=== PATIENT | female | born 1970 | race Caucasian/White ===

== ENCOUNTER 2019-11-14 11:09 | Emergency (ER) | payer MEDICARE, MEDICAID, SELFPAY ==
[2019-11-14 11:44] VITALS: BP 156/95; PULSE 72; RESP 16; TEMP 36.8; O2SAT 95; BMI 57.7
--- NOTE | 2019-11-14 11:54 | W.ED.EXTPRO ---
HPI - Extremity Problem General: Chief complaint: Extremity Problem,Nontraumatic Stated complaint: Right foot itching, patient comes in today for right foot itching starting this morning. Patient has a history of diabetes. Patient thought she had a rash there and states that she is allergic to a lot of things so she was concerned about that. Patient had tried some hydrocortisone which has resolved the rash but she continues to have itching in the foot. Patient appears well. Patient appears in no pain. Time Seen by Provider: 11/14/19 11:54 History of Present Illness: Associated symptoms: Reports rash Review of Systems General: Reports: 10 or more systems reviewed and unremarkable except in HPI and below Skin/Breast: Reports: rash and itching PFSH ED PFSH: Statuses (acute, chronic, etc) shown below reflect problem list status as previously entered and may not be historically accurate Social History Smoking and tobacco status: former smoker Physical Exam Const: COMMON NORMALS: no apparent distress and oriented x3 GENERAL APPEARANCE: cooperative HENMT: COMMON NORMALS: normocephalic, external ears normal, EAC's normal, TM's normal bilaterally and external nose normal HEAD & SCALP: normal to inspection and normocephalic FACE & SINUS: normal facial exam NOSE: external nose normal GENERAL EAR: hearing grossly impaired EXTERNAL EAR: Yes external ears normal EXTERNAL AUDITORY CANAL: EAC's normal TYMPANIC MEMBRANE: TM's normal bilaterally MOUTH: oral and palatal mucosa normal THROAT: posterior oropharynx normal Eye: COMMON NORMALS: PERRL and EOMs intact bilaterally PUPIL: Yes PERRL Neck/C-Spine: COMMON NORMALS: full ROM and no lymphadenopathy Lymph: LYMPHATIC: no lymphedema noted Chest: COMMONS NORMALS: inspection of chest normal and palpation of chest normal Resp: COMMON NORMALS: normal respiratory effort and clear to auscultation bilaterally AUSCULTATION: clear to auscultation bilaterally Cardio: COMMON NORMALS: regular rate and regular rhythm RATE: regular rate RHYTHM: regular rhythm GI: COMMON NORMALS: normal to inspection, nondistended, normoactive bowel sounds and non-tender : COMMON NORMALS: Yes no CVA tenderness BLADDER/KIDNEY EXAM: Yes no CVA tenderness Back/Pelvis: COMMON NORMALS: no CVA tenderness and thoracic and lumbar spine normal to inspection Extremity: COMMON NORMALS: normal to inspection GENERAL: No edema Neuro: COMMON NORMALS: oriented x3, moves all extremities and no focal motor deficits Psych: COMMON NORMALS: mental status grossly normal and cooperative Skin: RASHES: rashes noted (light redness to dorsal right foot) Course Vital Signs: Vital signs: Vital Signs Temperature 98.3 F 11/14/19 11:44 Pulse Rate 72 11/14/19 11:44 Respiratory Rate 16 11/14/19 11:44 Blood Pressure 156/95 11/14/19 11:44 Pulse Oximetry 95 11/14/19 11:44 MDM - Extremity (Nontraumatic) MDM Narrative: Medical decision making narrative: Medical decision. Patient comes in today with itchiness to the right dorsal foot. On exam there is an area of redness that looks like maybe mild abrasions due to scratching. No signs of significant rash or peeling of the skin. Differential diagnosis includes tinea pedis, contact dermatitis, diabetic neuropathy. Reviewed exam with patient recommended antifungal cream and medication for itching. Patient reports understanding agreed to plan. 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 remote computer terminal operator insulin use status Diabetes mellitus complication status: without complication Qualified Code(s): E11.9 - Type 2 diabetes mellitus without complications Condition: Stable Prescriptions: New triamcinolone acetonide 0.025 % cream 1 applic TOPICAL BID Qty: 80 RF: 0 Athlete's Foot (clotrimazole) 1 % cream 1 applic TOPICAL BID 28 Days Qty: 15 RF: 0 hydroxyzine HCl 25 mg tablet 25 mg PO Q8H PRN (Reason: itching) Qty: 20 RF: 0 Discharge Orders: Discharge Order (Routine); Ordered 11/14/19 Ordered By: Ash Burton Referrals: Che Day DO [Primary Care Provider] - Discharge Diet: Usual diet Discharge Activity: Resume usual activity Activity Restrictions/Additional Instructions: Drink plenty of water with oral medications Use creams to rash and itching as recommended Follow-up with primary care in one week for recheck Return to ER for fever or increased redness and swelling. Coding Level of Care Code ED Reproductive Endocrinologist for Robyn Ruiz Exam Problem Focused
[2019-11-14 12:22] VITALS: BP 138/85; PULSE 70; RESP 18; O2SAT 95
== END 2019-11-14 12:25 | disposition home or self-care (01) ==
PROVIDERS: Emergency Provider Nurse Practitioner Family; Family Provider Family Medicine; PCP Family Medicine
DX: L29.8 Other pruritus (principal); E11.9 Type 2 diabetes mellitus without complications; Z87.891 Personal history of nicotine dependence
CPT/HCPCS: 99281

== ENCOUNTER → 2020-01-04 13:38 | Outpatient (BNVA) | payer MEDICARE, MEDICAID, SELFPAY | PROVIDERS: Family Provider Family Medicine; PCP Family Medicine; Visit Provider Family Medicine | DX: E11.9 Type 2 diabetes mellitus without complications (principal); E78.5 Hyperlipidemia, unspecified; I10 Essential (primary) hypertension; H91.92 Unspecified hearing loss, left ear | CPT/HCPCS: 80053; 80061; 82044; 83036; 85025 ==

== ENCOUNTER → 2020-01-14 09:40 | Outpatient (BNVA) | payer MEDICARE, MEDICAID, SELFPAY | PROVIDERS: Family Provider Family Medicine; PCP Family Medicine; Visit Provider Otolaryngology | DX: H91.92 Unspecified hearing loss, left ear (principal); H65.02 Acute serous otitis media, left ear | CPT/HCPCS: 96372; 99204; 99214; J3301 ==

== ENCOUNTER 2020-01-20 21:39 | Emergency (ER) | payer MEDICARE, MEDICAID, SELFPAY ==
[2020-01-20 22:17] VITALS: BP 141/86; PULSE 79; RESP 16; TEMP 36.9; O2SAT 97; BMI 57.1
[2020-01-20 22:54] LABS: Basophils % 0.3 %; Eosinophils # 0.1 10^3/uL (0.0-0.8); Eosinophils % 0.7 %; Hematocrit 43.1 % (37.0-47.0); Hemoglobin 14.2 g/dL (11.5-15.3); Lymphocytes # 1.7 10^3/uL (0.8-4.8); Lymphocytes % 17.6 %; Mean Corpuscular HGB Conc 32.9 g/dL (30.0-36.0); Mean Corpuscular Hemoglobin 28.5 pg (28.0-34.0); Mean Corpuscular Volume 86.4 fL (81-99); Mean Platelet Volume 9.5 fL (7.4-10.4); Monocytes # 0.6 10^3/uL (0.2-0.9); Monocytes % 6.2 %; Neutrophils # 7.4 10^3/uL (1.8-7.7); Nucleated Red Blood Cells % 0 %; Platelet Count 298 10^3/cmm (130-400); Red Blood Count 4.99 10^6/uL (4.1-5.3); Red Cell Distribution Width 12.9 % (12.1-15.1); White Blood Count 9.8 10^3/uL (4.0-10.0)
--- NOTE | 2020-01-20 22:59 | W.ED.FEMALGU ---
HPI - Female Genitourinary General: Chief complaint: Urogenital-Female Stated complaint: abd pain/painful urination Time Seen by Provider: 01/20/20 22:58 Source: patient Mode of arrival: ambulatory Limitations: no limitations History of Present Illness: HPI Narrative: Patient comes in for discomfort with urination and vaginal itching. Patient has been on antibiotics recently for ear infection. Patient does report that this does remind her of her previous urinary tract infection so. Patient appears well. Patient denies any fever. Review of Systems General: Reports: 10 or more systems reviewed and unremarkable except in HPI and below : Reports: painful urination [facility] ED PFS: Medical History (Updated 01/21/20 @ 00:09 by PIPPA Arango) Acute serous otitis media of left ear Anxiety Controlled type 2 diabetes mellitus, without long-term current use of insulin Depression Dyslipidemia Enrolled in chronic care management GERD (gastroesophageal reflux disease) Hypertension Hypothyroidism Obesity BHARAT (obstructive sleep apnea) Seizure disorder Surgical History History of colonoscopy with polypectomy (~09/2018) History of esophagogastroduodenoscopy (EGD) (~09/2018) History of hysterectomy with oophorectomy History of laparoscopic cholecystectomy Social History Smoking and tobacco status: never smoked Quit status (tobacco): has quit using tobacco Second hand smoke exposure: No Smoking risk assessment/counseling performed?: No Alcohol intake: never Desire information about alcohol rehabilitation?: No Counseling given: No Desire information about substance/drug rehabilitation?: No Counseling given: No Adopted: No Caregiver/support person: Yes Lives independently: Yes Household members: family Housing: House Marital status: Single Highest education level completed: High School Graduate service: No Current occupational status: employed 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 Current occupational exposures/hazards: No Pets and animals: Yes History of recent travel: No Sexually active: Yes Current gender identity: Female Ania/Pentecostalism: None Special ania needs: No Agree to transfusion: Yes Financial difficulty paying for basics: Not Very Hard Physical Exam Const: COMMON NORMALS: no apparent distress and oriented x3 GENERAL APPEARANCE: cooperative HENMT: COMMON NORMALS: normocephalic, external ears normal, EAC's normal, TM's normal bilaterally and external nose normal HEAD & SCALP: normal to inspection and normocephalic FACE & SINUS: normal facial exam NOSE: external nose normal GENERAL EAR: hearing not grossly impaired EXTERNAL EAR: Yes external ears normal EXTERNAL AUDITORY CANAL: EAC's normal TYMPANIC MEMBRANE: TM's normal bilaterally MOUTH: oral and palatal mucosa normal THROAT: posterior oropharynx normal Eye: COMMON NORMALS: PERRL and EOMs intact bilaterally PUPIL: Yes PERRL Neck/C-Spine: COMMON NORMALS: full ROM and no lymphadenopathy Lymph: LYMPHATIC: no lymphedema noted Chest: COMMONS NORMALS: inspection of chest normal and palpation of chest normal Resp: COMMON NORMALS: normal respiratory effort and clear to auscultation bilaterally AUSCULTATION: clear to auscultation bilaterally Cardio: COMMON NORMALS: regular rate and regular rhythm RATE: regular rate RHYTHM: regular rhythm GI: COMMON NORMALS: normal to inspection, nondistended, normoactive bowel sounds and non-tender : COMMON NORMALS: Yes no CVA tenderness BLADDER/KIDNEY EXAM: Yes no CVA tenderness EXTERNAL FEMALE EXAM: Yes normal appearance of the urethra Back/Pelvis: COMMON NORMALS: no CVA tenderness and thoracic and lumbar spine normal to inspection Extremity: COMMON NORMALS: normal to inspection GENERAL: No edema Neuro: COMMON NORMALS: oriented x3, moves all extremities and no focal motor deficits Psych: COMMON NORMALS: mental status grossly normal and cooperative Skin: COMMON NORMALS: no rashes or lesions noted GENERAL SKIN EXAM: no rashes or lesions noted Course Vital Signs: Vital signs: Vital Signs Temperature 98.4 F 01/20/20 22:17 Pulse Rate 79 01/20/20 22:17 Respiratory Rate 16 01/20/20 22:17 Blood Pressure 141/86 01/20/20 22:17 Pulse Oximetry 97 01/20/20 22:17 MDM - Female MDM Narrative: Medical decision making narrative: Patient comes in today with concerns of urinary discomfort and itching. Exam notes abdomen soft nontender. No CVA tenderness. Visualization of the vaginal area noted no significant erythema or vaginal drainage. Swab was collected for wet prep. Vital signs were normal. Laboratory values noted normal white blood cell count, creatinine 1.2, blood glucose 185. Urinalysis showed red blood cells in the urine. Wet prep noted no clue cells, trichomonas, or yeast. Reviewed exam with patient recommended treatment with Macrobid and Pyridium. Encourage fluids rest and follow-up with primary care in 1 week. Patient reports understanding agreed to plan. Lab Data: Labs: Lab Results 01/20/20 01/20/20 01/20/20 Range/Units 21:33 22:38 22:38 WBC 9.8 (4.0-10.0) 10^3/ uL RBC 4.99 (4.1-5.3) 10^6/u L Hgb 14.2 (11.5-15.3) g/dL Hct 43.1 (37.0-47.0) % MCV 86.4 (81-99) fL MCH 28.5 (28.0-34.0) pg MCHC 32.9 (30.0-36.0) g/dL RDW 12.9 (12.1-15.1) % Plt Count 298 (130-400) 10^3/c mm MPV 9.5 (7.4-10.4) fL Neut % (Auto) 75.0 % Lymph % (Auto) 17.6 % [place] % (Auto) 6.2 % Eos % (Auto) 0.7 % Baso % (Auto) 0.3 % Neut # (Auto) 7.4 (1.8-7.7) 10^3/u L Lymph # (Auto) 1.7 (0.8-4.8) 10^3/u L [place] # (Auto) 0.6 (0.2-0.9) 10^3/u L Eos # (Auto) 0.1 (0.0-0.8) 10^3/u L Baso # (Auto) 0.0 (0.0-0.1) 10^3/u L Nucleated RBC % (a uto) 0 % Nucleated RBCs # 0.0 /100WBC Sodium 137 (136-145) mmol/L Potassium 3.5 (3.5-5.1) mmol/L Chloride 97 L (98-107) mmol/L Carbon Dioxide 29 (22-29) mmol/L Anion Gap 14.5 (5-19) BUN 23 H (6-20) mg/dL Creatinine 1.2 H (0.5-0.9) mg/dL GFR Calculation 48.2 L (90-130) mL/min Glucose 185 H (65-115) mg/dL Calculated Osmolal ity 286 (285-295) mOsm/k g Calcium 10.3 (8.5-10.5) mg/dL Total Bilirubin 0.3 (0.15-1.2) mg/dL AST 19 (0-32) U/L ALT 21 (0-33) U/L Alkaline Phosphata se 82 (35-105) IU/L Total Protein 8.4 (6.6-8.7) g/dL Albumin 4.4 (3.5-5.2) g/dL Globulin 4.0 (1.3-4.6) g/dL Lipase 84 H (13-60) U/L Urine Color Yellow (Yellow) Urine Appearance Hazy A (CLEAR) Urine pH 5 (5-7) Ur Specific Gravit y 1.020 (1.005-1.030) Urine Protein Neg (Negative) Urine Glucose (UA) Norm (Normal) Urine Ketones Negative (Negative) Urine Blood 2+ H (Negative) Urine Nitrate Negative (Negative) Urine Bilirubin Neg (NEGATIVE) Urine Urobilinogen Norm (Negative) mg/dL Ur Leukocyte Cleo ase Negative (Negative) Discharge Plan Discharge Patient Disposition: Home, Self-Care Clinical Impression: Dysuria Condition: Stable Prescriptions: New phenazopyridine 200 mg tablet 200 mg PO Q8H PRN (Reason: pain urination) Qty: 6 RF: 0 nitrofurantoin macrocrystal 100 mg capsule 100 mg PO BID 7 Days Qty: 14 RF: 0 No Action indapamide 2.5 mg tablet 2.5 mg PO QAM RF: 0 simvastatin 20 mg tablet 20 mg PO ONCE RF: 0 losartan 50 mg tablet 50 mg PO ONCE RF: 0 hydroxyzine HCl 25 mg tablet 25 mg PO BID PRNRF: 0 levothyroxine 100 mcg capsule 100 mcg PO ONCE RF: 0 docusate sodium 100 mg capsule 100 mg PO BID RF: 0 citalopram [Celexa] 20 mg tablet 20 mg PO ONCE RF: 0 metoprolol tartrate 50 mg tablet 50 mg PO BID RF: 0 buspirone 15 mg tablet 15 mg PO TID RF: 0 montelukast [Singulair] 10 mg tablet 10 mg PO QDAY Qty: 30 RF: 0 (DME) lancets [Accu-Chek Softclix Lancets] Misc See Rx Instructions .ROUTE .MEDSUPPLY Qty: 50 RF: 0 (DME) Accu-Chek Leeann Plus test strp Strip See Rx Instructions .ROUTE .MEDSUPPLY Qty: 100 RF: 0 (DME) blood-glucose meter [Accu-Chek Leeann Plus Meter] Misc See Rx Instructions .ROUTE .MEDSUPPLY Qty: 1 RF: 0 (DME) GLUCOMETER Qty: 1 RF: 0 (DME) lancets [Accu-Chek Fastclix Lancet Drum] Misc See Rx Instructions .ROUTE .MEDSUPPLY Qty: 50 RF: 0 Januvia 100 mg tablet 100 mg PO DAILY Qty: 30 RF: 2 amlodipine [Norvasc] 5 mg tablet 5 mg PO DAILY Qty: 30 RF: 0 topiramate 50 mg capsule,extended release 24hr 50 mg PO BID Qty: 60 RF: 0 triamcinolone acetonide 0.025 % cream 1 applic TOPICAL BID Qty: 80 RF: 0 Discharge Orders: Discharge Order (Routine); Ordered 01/21/20 Ordered By: Ash Burton Referrals: Che Day DO [Primary Care Provider] - Discharge Diet: Usual diet Discharge Activity: Resume usual activity Patient Instructions: Dysuria (ED) Activity Restrictions/Additional Instructions: drink plenty of water Activity as tolerated Follow-up with primary care in one week for persistent symptom Return to ER for high fever or new concerns Coding Level of Care Code ED Laboratory Machinist for Robyn Fwd Exam Comprehensive
[2020-01-20 23:02] LABS: Alanine Aminotransferase 21 U/L (0-33); Albumin Level 4.4 g/dL (3.5-5.2); Alkaline Phosphatase 82 IU/L (35-105); Anion Gap 14.5 (5-19); Aspartate Amino Transferase 19 U/L (0-32); Blood Urea Nitrogen 23 mg/dL (6-20); Calcium 10.3 mg/dL (8.5-10.5); Carbon Dioxide 29 mmol/L (22-29); Chloride 97 mmol/L (98-107); Glomerular Filtration Rate 48.2 mL/min (90-130); Glucose 185 mg/dL (65-115); Lipase 84 U/L (13-60); Osmolality Calculated 286 mOsm/kg (285-295); Potassium 3.5 mmol/L (3.5-5.1); Sodium 137 mmol/L (136-145); Total Bilirubin 0.3 mg/dL (0.15-1.2); Total Protein 8.4 g/dL (6.6-8.7)
[2020-01-21 00:12] LABS: Add Urine Microscopic? YES; Bilirubin Urine Neg (NEGATIVE); Blood Urine 2+ (Negative); Glucose Urine UA Norm (Normal); Ketones Urine Negative (Negative); Leukocyte Esterase Urine Negative (Negative); Nitrate Urine Negative (Negative); Protein Urine Neg (Negative); Urine Appearance Hazy (CLEAR); Urine Color Yellow (Yellow); Urobilinogen Urine Norm (Negative); pH Urine 5 (5-7)
[2020-01-21 00:19] LABS: Add Urine Culture? No; Bacteria Urine TRACE; RBC Urine 0-4 /hpf (0-2); Squamous Epithelial Cell Urine 25-40 (0-5); WBC Urine 0-4 /hpf (0-5)
[2020-01-21] MEDS: nitrofurantoin SR (BID) 100 mg Capsule PO (00:25)
[2020-01-21] MEDS: phenazopyridine 100 mg Tablet 200 MG PO (00:26)
[2020-01-21 00:27] VITALS: BP 136/83; PULSE 69; RESP 18; O2SAT 98
== END 2020-01-21 00:31 | disposition home or self-care (01) ==
PROVIDERS: Emergency Medicine; Emergency Provider Nurse Practitioner Family; Family Provider Family Medicine; PCP Family Medicine
DX: R30.0 Dysuria (principal); E11.9 Type 2 diabetes mellitus without complications; E78.5 Hyperlipidemia, unspecified; I10 Essential (primary) hypertension; E03.9 Hypothyroidism, unspecified; Z87.891 Personal history of nicotine dependence; Z79.84 Long term (current) use of oral hypoglycemic drugs
CPT/HCPCS: 12345; 80053; 81001; 83690; 85025; 87210; 99282; 99283

== ENCOUNTER → 2020-01-27 09:23 | Outpatient (BNVA) | payer MEDICARE, MEDICAID, SELFPAY | PROVIDERS: Family Provider Family Medicine; PCP Family Medicine; Visit Provider Nurse Practitioner | DX: F41.1 Generalized anxiety disorder (principal); R41.83 Borderline intellectual functioning | CPT/HCPCS: 99213 ==

== ENCOUNTER → 2020-02-01 09:45 | Outpatient (BNVA) | payer MEDICARE, MEDICAID, SELFPAY | PROVIDERS: Family Provider Family Medicine; PCP Family Medicine; Visit Provider Otolaryngology | DX: H91.92 Unspecified hearing loss, left ear (principal); H65.02 Acute serous otitis media, left ear; H93.13 Tinnitus, bilateral; I10 Essential (primary) hypertension | CPT/HCPCS: 96372; 99213; 99214; J3301 ==

== ENCOUNTER 2020-02-14 22:58 | Emergency (ER) | payer MEDICARE, MEDICAID, SELFPAY ==
[2020-02-14 23:03] VITALS: BP 165/100; PULSE 77; RESP 20; TEMP 36.2; O2SAT 98; BMI 57.2
--- NOTE | 2020-02-14 23:04 | W.ED.EAR ---
HPI - Ear Problem General: Chief complaint: Ear Stated complaint: l ear pain Time Seen by Provider: 02/14/20 23:04 Source: patient Mode of arrival: ambulatory Limitations: no limitations History of Present Illness: HPI Narrative: Patient comes in today for complaints of left ear pain. Patient has a history of otitis media and otitis effusion but she has been seen by ENT over the last month. Patient comes in today for persistent ear discomfort. Patient appears well. Patient appears in mild pain. MD Complaint: ear pain Associated symptoms: Reports ear or mastoid pain Review of Systems General: Reports: 10 or more systems reviewed and unremarkable except in HPI and below ENMT: Reports: ear pain PFSH ED PFSH: Social History Smoking and tobacco status: never smoked Quit status (tobacco): has quit using tobacco Second hand smoke exposure: No Smoking risk assessment/counseling performed?: No Alcohol intake: never Desire information about alcohol rehabilitation?: No Counseling given: No Desire information about substance/drug rehabilitation?: No Counseling given: No Adopted: No Caregiver/support person: Yes Lives independently: Yes Household members: family Housing: House Marital status: Single Highest education level completed: High School Graduate service: No Current occupational status: employed 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 Current occupational exposures/hazards: No Pets and animals: Yes History of recent travel: No Sexually active: Yes Current gender identity: Female Ania/Moravian: None Special ania needs: No Agree to transfusion: Yes Financial difficulty paying for basics: Not Very Hard Physical Exam Const: COMMON NORMALS: no apparent distress and oriented x3 GENERAL APPEARANCE: cooperative HENMT: COMMON NORMALS: normocephalic, TM's normal bilaterally and external nose normal HEAD & SCALP: normal to inspection and normocephalic NOSE: external nose normal EXTERNAL EAR: Yes external ear abnormal EXTERNAL AUDITORY CANAL: EAC abnormal EAC laterality: left Details: erythema and edema TYMPANIC MEMBRANE: TM's normal bilaterally MOUTH: oral and palatal mucosa normal THROAT: posterior oropharynx normal Eye: GENERAL EYE: normal appearance of both eyes Neck/C-Spine: COMMON NORMALS: full ROM Lymph: LYMPHATIC: no lymphadenopathy noted Chest: COMMONS NORMALS: inspection of chest normal Resp: COMMON NORMALS: normal respiratory effort EFFORT & INSPECTION: Yes able to speak in complete sentences Cardio: COMMON NORMALS: regular rate and regular rhythm RATE: regular rate RHYTHM: regular rhythm GI: COMMON NORMALS: non-tender : COMMON NORMALS: Yes no CVA tenderness BLADDER/KIDNEY EXAM: Yes no CVA tenderness Back/Pelvis: COMMON NORMALS: no CVA tenderness and thoracic and lumbar spine normal to inspection Extremity: COMMON NORMALS: normal to inspection Neuro: COMMON NORMALS: oriented x3 and moves all extremities Psych: COMMON NORMALS: mental status grossly normal and cooperative Skin: COMMON NORMALS: no rashes or lesions noted GENERAL SKIN EXAM: no rashes or lesions noted Course Vital Signs: Vital signs: Vital Signs Temperature 97.1 F L 02/14/20 23:03 Pulse Rate 77 02/14/20 23:03 Respiratory Rate 20 H 02/14/20 23:03 Blood Pressure 165/100 02/14/20 23:03 Pulse Oximetry 98 02/14/20 23:03 MDM - Ear MDM Narrative: Medical decision making narrative: Patient comes in today for complaints of left ear pain. On exam we note some left ear canal swelling with redness. Right ear canal is clear. Bilateral tympanic membranes are intact and clear with some mild scarring to both membranes. Vital signs are normal. Differential diagnosis includes otitis media, otalgia, otitis externa. Exam suggests otitis externa. Patient be put on some Cortisporin otic drops recommended 4 drops 4 times a day to the left ear for the next 7 days. Recommend recheck with primary care in 1 week. Patient reports understanding. Discharge Plan Discharge Patient Disposition: Home, Self-Care Clinical Impression: Otitis externa Qualifiers: Otitis externa type: unspecified type Chronicity: acute Laterality: left Qualified Code(s): H60.502 - Unspecified acute noninfective otitis externa, left ear Condition: Stable Prescriptions: No Action indapamide 2.5 mg tablet 2.5 mg PO QAM RF: 0 hydroxyzine HCl 25 mg tablet 25 mg PO BID PRNRF: 0 docusate sodium 100 mg capsule 100 mg PO BID RF: 0 metoprolol tartrate 50 mg tablet 50 mg PO BID RF: 0 levothyroxine 100 mcg capsule 100 mcg PO DAILY RF: 0 losartan 50 mg tablet 50 mg PO DAILY RF: 0 simvastatin 20 mg tablet 20 mg PO DAILY RF: 0 citalopram [Celexa] 20 mg tablet 20 mg PO DAILY Qty: 30 RF: 2 buspirone 15 mg tablet 15 mg PO TID Qty: 90 RF: 2 (DME) lancets [Accu-Chek Softclix Lancets] Misc See Rx Instructions .ROUTE .MEDSUPPLY Qty: 50 RF: 0 (DME) Accu-Chek Leeann Plus test strp Strip See Rx Instructions .ROUTE .MEDSUPPLY Qty: 100 RF: 0 (DME) blood-glucose meter [Accu-Chek Leeann Plus Meter] Misc See Rx Instructions .ROUTE .MEDSUPPLY Qty: 1 RF: 0 (DME) GLUCOMETER Qty: 1 RF: 0 (DME) lancets [Accu-Chek Fastclix Lancet Drum] Misc See Rx Instructions .ROUTE .MEDSUPPLY Qty: 50 RF: 0 Januvia 100 mg tablet 100 mg PO DAILY Qty: 30 RF: 2 amlodipine [Norvasc] 5 mg tablet 5 mg PO DAILY Qty: 30 RF: 0 topiramate 50 mg capsule,extended release 24hr 50 mg PO BID Qty: 60 RF: 0 montelukast [Singulair] 10 mg tablet 10 mg PO QDAY Qty: 30 RF: 0 triamcinolone acetonide 0.025 % cream 1 applic TOPICAL BID Qty: 80 RF: 0 phenazopyridine 200 mg tablet 200 mg PO Q8H PRN (Reason: pain urination) Qty: 6 RF: 0 Discharge Orders: Discharge Order (Routine); Ordered 02/14/20 Ordered By: Ash Burton Referrals: Che Day DO [Primary Care Provider] - Discharge Diet: Usual diet Discharge Activity: Increase activity as tolerated Patient Instructions: Otitis Externa (ED) Activity Restrictions/Additional Instructions: use ear drops given to you from ER, 4 drops to the left ear 4 times a day for the next 7 days put the drops in the ear and lay with the ear up for 5 minutes You may use a cotton ball in the ear for comfort Use acetaminophen and ibuprofen for pain Follow-up with primary care in one week for recheck Return to ER for worsening symptoms or new concerns Coding Level of Care Code ED Neonatal Intensive Care Nurse for Frankyg Fwd Exam Comprehensive
[2020-02-14] MEDS: neomycin-poly-hydrocort Otic Susp 10 mL Btl 4 DROP EAR-LEFT (23:19)
== END 2020-02-14 23:20 | disposition home or self-care (01) ==
PROVIDERS: Emergency Provider Nurse Practitioner Family; Family Provider Family Medicine; PCP Family Medicine
DX: H60.502 Unspecified acute noninfective otitis externa, left ear (principal)
CPT/HCPCS: 12345; 99281; 99282

== ENCOUNTER 2020-02-29 20:54 | Emergency (ER) | payer MEDICARE, MEDICAID, SELFPAY ==
[2020-02-29 20:56] VITALS: BP 163/89; PULSE 83; RESP 18; TEMP 36.1; O2SAT 96; BMI 56.8
--- NOTE | 2020-02-29 21:16 | W.ED.SKABFB ---
HPI - Skin/Abscess/Foreign Bdy General: Chief complaint: Skin/Abscess/Foreign Body Stated complaint: RASH Time Seen by Provider: 02/29/20 21:11 History of Present Illness: HPI narrative: Nayla is a 49-year-old female who comes in complaining of rash on her chest. She states that the rash was there this morning. It itches but she denies any rash anywhere else. She denies any fevers or chills or any other associated symptoms. Review of Systems General: Reports: 10 or more systems reviewed and unremarkable except in HPI and below PFSH ED PFSH: Medical History Acute serous otitis media of left ear Anxiety Borderline intellectual functioning Controlled type 2 diabetes mellitus, without long-term current use of insulin Depression Dyslipidemia Enrolled in chronic care management Generalized anxiety disorder GERD (gastroesophageal reflux disease) Hypertension Hypothyroidism Obesity BHARAT (obstructive sleep apnea) Seizure disorder Tinnitus Surgical History History of colonoscopy with polypectomy (~09/2018) History of esophagogastroduodenoscopy (EGD) (~09/2018) History of hysterectomy with oophorectomy History of laparoscopic cholecystectomy Family History Grandmother Cancer Father Lung disease Diabetes Denies family history of Anesthesia complication Bleeding disorder Social History Smoking and tobacco status: never smoked Quit status (tobacco): has quit using tobacco Second hand smoke exposure: No Smoking risk assessment/counseling performed?: No Alcohol intake: never Desire information about alcohol rehabilitation?: No Counseling given: No Desire information about substance/drug rehabilitation?: No Counseling given: No Adopted: No Caregiver/support person: Yes Lives independently: Yes Household members: family Housing: House Marital status: Single Highest education level completed: High School Graduate service: No Current occupational status: employed 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 Current occupational exposures/hazards: No Pets and animals: Yes History of recent travel: No Sexually active: Yes Current gender identity: Female Ania/Buddhism: None Special ania needs: No Agree to transfusion: Yes Financial difficulty paying for basics: Not Very Hard Physical Exam Const: COMMON NORMALS: no apparent distress, oriented x3, no limitations, healthy appearing and well nourished EXAM LIMITATIONS: no altered mental status GENERAL APPEARANCE: cooperative, well kempt and well developed ORIENTATION/CONSCIOUSNESS: Yes awake HENMT: COMMON NORMALS: normocephalic, head/scalp atraumatic, hearing grossly normal bilaterally, external ears normal, EAC's normal, external nose normal and moist oral mucous membranes HEAD & SCALP: normal to inspection, normocephalic and atraumatic FACE & SINUS: normal facial exam and face symmetric NOSE: external nose normal and nares normal EXTERNAL EAR: Yes external ears normal EXTERNAL AUDITORY CANAL: EAC's normal MOUTH: oral and palatal mucosa normal and tongue normal Eye: COMMON NORMALS: PERRL, EOMs intact bilaterally, conjunctivae normal and no scleral icterus GENERAL EYE: normal appearance of both eyes and normal light reflex CONJUNCTIVA: Yes conjunctivae normal SCLERA: sclerae normal CORNEA: Yes corneas normal PUPIL: Yes PERRL DIRECT OPHTHALMOSCOPY: Yes normal light reflex Neck/C-Spine: COMMON NORMALS: full ROM, no lymphadenopathy, supple, no meningeal signs and no JVD GENERAL: Yes normal visual inspection and Yes trachea midline CERVICAL SPINE: Yes cervical ROM normal Chest: COMMONS NORMALS: inspection of chest normal and palpation of chest normal Resp: COMMON NORMALS: normal respiratory effort, no retractions, no use of accessory muscles and clear to auscultation bilaterally EFFORT & INSPECTION: Yes able to speak in complete sentences AUSCULTATION: clear to auscultation bilaterally Cardio: COMMON NORMALS: no JVD, regular rate, regular rhythm, S1 normal heart sound, S2 normal heart sound, no gallops, no clicks, no murmurs and no rub JUGULAR VENOUS DISTENTION: no JVD RATE: regular rate RHYTHM: regular rhythm HEART SOUNDS: S1 normal and S2 normal GI: COMMON NORMALS: soft to palpation, non-tender, no hepatosplenomegaly and no masses INSPECTION: Yes normal to inspection PALPATION: Yes soft and Yes no hepatosplenomegaly : COMMON NORMALS: Yes no CVA tenderness BLADDER/KIDNEY EXAM: Yes no CVA tenderness Back/Pelvis: COMMON NORMALS: no CVA tenderness, thoracic and lumbar spine normal to inspection, no thoracic nor lumbar tenderness and thoraco-lumbar ROM normal Extremity: COMMON NORMALS: normal to inspection, full ROM, normal capillary refill, no joint enlargement, no clubbing, cyanosis or edema and no calf tenderness Neuro: COMMON NORMALS: oriented x3, CN's II-XII intact bilaterally, moves all extremities, no focal motor deficits and no sensory deficits noted MENINGEAL SIGNS: Yes no meningeal signs Psych: COMMON NORMALS: mental status grossly normal, thought process normal, cooperative, affect normal, speech normal and activity/motor behavior normal APPEARANCE: Yes well kempt SPEECH: Yes normal speech THOUGHT PROCESS: normal thought process Skin: COMMON NORMALS: skin turgor normal, no jaundice, no petechiae and no mottling NARRATIVE SKIN EXAM: Contact dermatitis type lesions noted in a quarter hoh type of linear distribution on her neck. GENERAL SKIN EXAM: turgor normal Course Vital Signs: Vital signs: Vital Signs Temperature 97.0 F L 02/29/20 20:56 Pulse Rate 68 02/29/20 21:33 Respiratory Rate 18 02/29/20 21:33 Blood Pressure 142/64 02/29/20 21:33 Pulse Oximetry 96 02/29/20 21:33 MDM - Skin/Abscess/Foreign Bdy MDM Narrative: Medical decision making narrative: Nayla's symptoms in the distribution appear as though something has caused a contact dermatitis in a ringlike pattern on her chest. I see no sign of vesicular lesions, petechiae, or purpura and her lesions daksha with pressure. They itch per her history. Believe this is likely contact dermatitis and she is a diabetic so at this time I will just prescribe topical hydrocortisone cream to try and the patient agrees to follow-up with her doctor if this does not improve. Discharge Plan Discharge Patient Disposition: Home, Self-Care Clinical Impression: Contact dermatitis Qualifiers: Contact dermatitis type: unspecified Contact dermatitis trigger: unspecified trigger Qualified Code(s): L25.9 - Unspecified contact dermatitis, unspecified cause Condition: Stable Prescriptions: New hydrocortisone 1 % cream 1 applic TOPICAL TID 5 Days Qty: 26 RF: 0 No Action indapamide 2.5 mg tablet 2.5 mg PO QAM RF: 0 hydroxyzine HCl 25 mg tablet 25 mg PO BID PRN (Reason: Anxiety) RF: 0 docusate sodium 100 mg capsule 100 mg PO BID RF: 0 metoprolol tartrate 50 mg tablet 50 mg PO BID RF: 0 levothyroxine 100 mcg capsule 100 mcg PO DAILY RF: 0 losartan 50 mg tablet 50 mg PO DAILY RF: 0 citalopram [Celexa] 20 mg tablet 20 mg PO DAILY Qty: 30 RF: 2 buspirone 15 mg tablet 15 mg PO TID Qty: 90 RF: 2 (DME) lancets [Accu-Chek Softclix Lancets] Misc See Rx Instructions .ROUTE .MEDSUPPLY Qty: 50 RF: 0 (DME) Accu-Chek Leeann Plus test strp Strip See Rx Instructions .ROUTE .MEDSUPPLY Qty: 100 RF: 0 (DME) blood-glucose meter [Accu-Chek Leeann Plus Meter] Misc See Rx Instructions .ROUTE .MEDSUPPLY Qty: 1 RF: 0 (DME) GLUCOMETER Qty: 1 RF: 0 (DME) lancets [Accu-Chek Fastclix Lancet Drum] Misc See Rx Instructions .ROUTE .MEDSUPPLY Qty: 50 RF: 0 Januvia 100 mg tablet 100 mg PO DAILY Qty: 30 RF: 2 amlodipine [Norvasc] 5 mg tablet 5 mg PO DAILY Qty: 90 RF: 0 montelukast [Singulair] 10 mg tablet 10 mg PO QDAY Qty: 30 RF: 0 topiramate 50 mg capsule,extended release 24hr 50 mg PO BID Qty: 60 RF: 0 simvastatin 20 mg tablet 20 mg PO DAILY Qty: 30 RF: 2 triamcinolone acetonide 0.025 % cream 1 applic TOPICAL BID Qty: 80 RF: 0 phenazopyridine 200 mg tablet 200 mg PO Q8H PRN (Reason: pain urination) Qty: 6 RF: 0 Discharge Orders: Discharge Order (Routine); Ordered 02/29/20 Ordered By: Juanita Chapa Referrals: Che Day DO [Primary Care Provider] - 1-3 days Discharge Diet: Diabetic Discharge Activity: Resume usual activity Patient Instructions: Contact Dermatitis (ED) Activity Restrictions/Additional Instructions: Please return to the ER immediately for any of the signs or symptoms listed on your discharge instruction sheets, worsening/changing of your symptoms, you are not getting better as quickly as expected, or for ANY other cause or concerns. Discharge Date/Time: 02/29/20 21:36 Coding Level of Care Code ED [facility] for [facility] Fwd Exam Comprehensive
[2020-02-29 21:33] VITALS: BP 142/64; PULSE 68; RESP 18; O2SAT 96
== END 2020-02-29 21:36 | disposition home or self-care (01) ==
LOC: ER 21:22
PROVIDERS: Emergency Provider Emergency Medicine; Family Provider Family Medicine; PCP Family Medicine
DX: L25.9 Unspecified contact dermatitis, unspecified cause (principal); E11.9 Type 2 diabetes mellitus without complications; E78.5 Hyperlipidemia, unspecified; K21.9 Gastro-esophageal reflux disease without esophagitis; I10 Essential (primary) hypertension; E03.9 Hypothyroidism, unspecified; G47.33 Obstructive sleep apnea (adult) (pediatric)
CPT/HCPCS: 12345; 99281; 99282

== ENCOUNTER 2020-03-19 19:13 | Emergency (ER) | payer MEDICARE, MEDICAID, SELFPAY ==
[2020-03-19 19:24] VITALS: BP 136/85; PULSE 77; RESP 18; TEMP 36.9; O2SAT 100; BMI 56.8
--- NOTE | 2020-03-19 19:37 | PC.NURSE ---
Patient states her left eye has been swollen, red, itchy and uncomfortable. Patient states she doesn't know when the symptoms started prior to her noticing them yesterday. Patient states she is not having any pain.
--- NOTE | 2020-03-19 19:39 | ED_ITS ---
HPI - Eye Problem General: Chief complaint: Eye Problems Stated complaint: left eye issue Time Seen by Provider: 03/19/20 19:30 History of Present Illness: HPI Narrative: Patient complains about left eye itching today. Has had some clear drainage. Something up at the sheltered workshop chief complaint: other (Eye itching) Onset (ago): hour(s) Onset description: gradual Duration: constant Location: left eye Eye Symptoms: itching Severity: mild Associated symptoms: Denies fever(s), headache(s), nausea or vomiting Review of Systems Const: Denies: fever, chills or body aches Eyes: Reports: other (Left eye itching and clear drainage); Denies: blurry vision ENMT: Reports: other; Denies: throat pain or nasal congestion Card: Denies: chest pain or shortness of breath on exertion Resp: Denies: shortness of breath, productive cough or non-productive cough GI: Denies: abdominal pain, nausea or vomiting Musc: Denies: extremity pain Skin/Breast: Denies: rash Neuro: Denies: headache Psych: Denies: anxiety or depression Red/Lymph: Denies: easy bruising PFSH ED PFSH: Social History Smoking and tobacco status: never smoked Quit status (tobacco): has quit using tobacco Second hand smoke exposure: No Smoking risk assessment/counseling performed?: No Alcohol intake: never Desire information about alcohol rehabilitation?: No Counseling given: No Desire information about substance/drug rehabilitation?: No Counseling given: No Adopted: No Caregiver/support person: Yes Lives independently: Yes Household members: family Housing: House Marital status: Single Highest education level completed: High School Graduate service: No Current occupational status: employed 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 [place] Current occupational exposures/hazards: No Pets and animals: Yes History of recent travel: No Sexually active: Yes Current gender identity: Female Ania/Druze: None Special ania needs: No Agree to transfusion: Yes Financial difficulty paying for basics: Not Very Hard Female Reproductive History: Date of last menstrual period: 03/19/20 Physical Exam Const: COMMON NORMALS: no apparent distress, average body habitus and oriented x3 HENMT: COMMON NORMALS: normocephalic HEAD & SCALP: normal to inspection and normocephalic FACE & SINUS: normal facial exam Eye: COMMON NORMALS: conjunctivae normal GENERAL EYE: normal appearance of both eyes VISUAL ACUITY: Yes other (Left eye with mild conjunctival inflammation) CONJUNCTIVA: Yes conjunctivae normal Neck/C-Spine: COMMON NORMALS: no JVD Chest: COMMONS NORMALS: inspection of chest normal Resp: COMMON NORMALS: normal respiratory effort and clear to auscultation bilaterally AUSCULTATION: clear to auscultation bilaterally Cardio: COMMON NORMALS: no JVD, regular rate and regular rhythm RATE: regular rate RHYTHM: regular rhythm GI: COMMON NORMALS: normal to inspection, nondistended, normoactive bowel sounds Extremity: COMMON NORMALS: normal to inspection and full ROM Neuro: COMMON NORMALS: oriented x3 Course Vital Signs: Vital signs: Vital Signs Temperature 98.4 F 03/19/20 19:24 Pulse Rate 77 03/19/20 19:24 Respiratory Rate 18 03/19/20 19:24 Blood Pressure 136/85 03/19/20 19:24 Pulse Oximetry 100 03/19/20 19:24 Discharge Plan Discharge Patient Disposition: Home, Self-Care Clinical Impression: Allergic conjunctivitis of left eye Condition: Stable Prescriptions: New Zaditor 0.025 % (0.035 %) drops 1 drop ophthalmic (eye) BID PRN (Reason: allergy symptoms) Qty: 10 RF: 0 No Action amoxicillin-pot clavulanate [Augmentin] 875-125 mg tablet 1 tab PO BID 10 Days Qty: 20 RF: 0 indapamide 2.5 mg tablet 2.5 mg PO QAM RF: 0 hydroxyzine HCl 25 mg tablet 25 mg PO BID PRN (Reason: Anxiety) RF: 0 docusate sodium 100 mg capsule 100 mg PO BID RF: 0 metoprolol tartrate 50 mg tablet 50 mg PO BID RF: 0 levothyroxine 100 mcg capsule 100 mcg PO DAILY RF: 0 losartan 50 mg tablet 50 mg PO DAILY RF: 0 citalopram [Celexa] 20 mg tablet 20 mg PO DAILY Qty: 30 RF: 2 buspirone 15 mg tablet 15 mg PO TID Qty: 90 RF: 2 (DME) lancets [Accu-Chek Softclix Lancets] Misc See Rx Instructions .ROUTE .MEDSUPPLY Qty: 50 RF: 0 (DME) Accu-Chek Leeann Plus test strp Strip See Rx Instructions .ROUTE .MEDSUPPLY Qty: 100 RF: 0 (DME) blood-glucose meter [Accu-Chek Leeann Plus Meter] Misc See Rx Instructions .ROUTE .MEDSUPPLY Qty: 1 RF: 0 (DME) GLUCOMETER Qty: 1 RF: 0 (DME) lancets [Accu-Chek Fastclix Lancet Drum] Misc See Rx Instructions .ROUTE .MEDSUPPLY Qty: 50 RF: 0 Januvia 100 mg tablet 100 mg PO DAILY Qty: 30 RF: 2 amlodipine [Norvasc] 5 mg tablet 5 mg PO DAILY Qty: 90 RF: 0 montelukast [Singulair] 10 mg tablet 10 mg PO QDAY Qty: 30 RF: 0 topiramate 50 mg capsule,extended release 24hr 50 mg PO BID Qty: 60 RF: 0 simvastatin 20 mg tablet 20 mg PO DAILY Qty: 30 RF: 2 triamcinolone acetonide 0.025 % cream 1 applic TOPICAL BID Qty: 80 RF: 0 phenazopyridine 200 mg tablet 200 mg PO Q8H PRN (Reason: pain urination) Qty: 6 RF: 0 Discharge Orders: Discharge Order (Routine); Ordered 03/19/20 Ordered By: Joey Hook Referrals: Che Day DO [Primary Care Provider] - Discharge Diet: Usual diet Discharge Activity: Resume usual activity Patient Instructions: Allergies (ED) Activity Restrictions/Additional Instructions: Follow-up with medical provider as directed. Take medications as prescribed. Return to the ER or your medical provider if condition worsens. Please read and understand discharge instructions. If any questions ask please. 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
[2020-03-19 19:40] VITALS: BP 95/70; PULSE 77; RESP 16; O2SAT 100
[2020-03-19] MEDS: olopatadine 0.1% Op Soln 5 mL Btl 1 DROP EYE-LEFT (20:05)
[2020-03-19 20:07] VITALS: BP 99/57; PULSE 74; RESP 16; O2SAT 100
== END 2020-03-19 20:06 | disposition home or self-care (01) ==
PROVIDERS: Emergency Provider Nurse Practitioner Family; PCP Family Medicine
DX: H10.12 Acute atopic conjunctivitis, left eye (principal); Z87.891 Personal history of nicotine dependence
CPT/HCPCS: 12345; 99281; 99282

== ENCOUNTER 2020-04-23 17:28 | Outpatient (CLI) | payer MEDICARE, MEDICAID, SELFPAY ==
[2020-04-23 17:46] LABS: Basophils # 0.1 10^3/uL (0.0-0.1); Basophils % 0.6 %; Eosinophils # 0.1 10^3/uL (0.0-0.8); Eosinophils % 1.1 %; Hematocrit 46.4 % (37.0-47.0); Hemoglobin 14.9 g/dL (11.5-15.3); Lymphocytes # 1.7 10^3/uL (0.8-4.8); Lymphocytes % 17.2 %; Mean Corpuscular HGB Conc 32.1 g/dL (30.0-36.0); Mean Corpuscular Hemoglobin 28.9 pg (28.0-34.0); Mean Corpuscular Volume 90.1 fL (81-99); Mean Platelet Volume 9.2 fL (7.4-10.4); Monocytes # 0.6 10^3/uL (0.2-0.9); Monocytes % 5.6 %; Neutrophils # 7.6 10^3/uL (1.8-7.7); Neutrophils % 75.1 %; Nucleated Red Blood Cells % 0 %; Platelet Count 254 10^3/cmm (130-400); Red Blood Count 5.15 10^6/uL (4.1-5.3); Red Cell Distribution Width 12.7 % (12.1-15.1); White Blood Count 10.1 10^3/uL (4.0-10.0)
[2020-04-23 18:06] LABS: Glucose 150 mg/dL (65-115)
== END 2020-04-23 17:29 | disposition home or self-care (01) ==
PROVIDERS: PCP Family Medicine; Visit Provider Nurse Practitioner
DX: R53.83 Other fatigue (principal)
CPT/HCPCS: 36415; 82947; 85025

== ENCOUNTER → 2020-04-25 07:40 | Outpatient (BNVA) | payer MEDICARE, MEDICAID, SELFPAY | PROVIDERS: PCP Family Medicine; Visit Provider Nurse Practitioner | DX: E03.9 Hypothyroidism, unspecified (principal); G47.10 Hypersomnia, unspecified | CPT/HCPCS: 84439; 84443 ==

== ENCOUNTER 2020-05-03 08:59 | Emergency (ER) | payer MEDICARE, MEDICAID, SELFPAY ==
--- NOTE | 2020-05-03 09:03 | W.ED.ABDPA2 ---
HPI - Abdominal Pain General: Chief Complaint: Abdominal Pain Stated Complaint: abd pain Time Seen by Provider: 05/03/20 09:03 Source: patient Mode of arrival: ambulatory Limitations: no limitations History of Present Illness: HPI narrative: Patient comes in today with complaints of lower abdominal pain starting this morning. Patient states for the last 4 to 5 days she has had some abdominal discomfort and felt that she may have been constipated. Patient took some milk of magnesia this morning prior to starting to have further cramping and discomfort. Patient appears well. Patient appears in mild discomfort. MD elicited complaint: abdominal pain Related Data: Date of Last Menstrual Period: 03/19/20 Review of Systems General: Reports: 10 or more systems reviewed and unremarkable except in HPI and below GI: Reports: abdominal pain PFSH ED PFSH: Medical History (Updated 05/03/20 @ 12:03 by PIPPA Arango) Acute serous otitis media of left ear Anxiety Borderline intellectual functioning Controlled type 2 diabetes mellitus, without long-term current use of insulin Depression Dyslipidemia Enrolled in chronic care management Generalized anxiety disorder GERD (gastroesophageal reflux disease) Hypertension Hypothyroidism Obesity BHARAT (obstructive sleep apnea) Seizure disorder Tinnitus Surgical History History of colonoscopy with polypectomy (~09/2018) History of esophagogastroduodenoscopy (EGD) (~09/2018) History of hysterectomy with oophorectomy History of laparoscopic cholecystectomy Family History Grandmother Cancer Father Lung disease Diabetes Denies family history of Anesthesia complication Bleeding disorder Social History Smoking and tobacco status: never smoked Quit status (tobacco): has quit using tobacco Second hand smoke exposure: No Smoking risk assessment/counseling performed?: No Alcohol intake: never Desire information about alcohol rehabilitation?: No Counseling given: No Desire information about substance/drug rehabilitation?: No Counseling given: No Adopted: No Caregiver/support person: Yes Lives independently: Yes Household members: family Housing: House Marital status: Single Highest education level completed: High School Graduate service: No Current occupational status: employed 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 Current occupational exposures/hazards: No Pets and animals: Yes History of recent travel: No Sexually active: Yes Current gender identity: Female Aina/Yazdanism: None Special ania needs: No Agree to transfusion: Yes Financial difficulty paying for basics: Not Very Hard Female Reproductive History: Date of last menstrual period: 03/19/20 Physical Exam Const: COMMON NORMALS: no acute distress and patient oriented x3 GENERAL APPEARANCE: cooperative HENMT: COMMON NORMALS: normocephalic and Normal external nose present HEAD & SCALP: normal to inspection and normocephalic NOSE: Normal external nose present MOUTH: Normal oral and palatal mucosa present THROAT: posterior oropharynx normal Eye: GENERAL EYE: appearance normal, both eyes and all related structures Neck/C-Spine: COMMON NORMALS: full ROM Lymph: LYMPHATIC: no lymphadenopathy noted Chest: COMMONS NORMALS: normal inspection of the chest Resp: COMMON NORMALS: normal respiratory effort EFFORT & INSPECTION: Yes able to speak in complete sentences Cardio: COMMON NORMALS: regular rate and regular rhythm RATE: regular rate RHYTHM: regular rhythm GI: COMMON NORMALS: Soft to palpation AUSCULTATION: Yes normoactive bowel sounds PALPATION: Yes Soft to palpation and Yes Tenderness to palpation present (GI) (periumbilical) : COMMON NORMALS: Yes no CVA tenderness BLADDER/KIDNEY EXAM: Yes no CVA tenderness Back/Pelvis: COMMON NORMALS: no CVA tenderness and thoracic and lumbar spine normal to inspection Extremity: COMMON NORMALS: normal to inspection Neuro: COMMON NORMALS: patient oriented x3 and moves all extremities Psych: COMMON NORMALS: mental status grossly normal and cooperative Skin: COMMON NORMALS: no rashes or lesions noted GENERAL SKIN EXAM: no rashes or lesions noted Course Vital Signs: Vital signs: Vital Signs Temperature 98.3 F 05/03/20 09:06 Pulse Rate 69 05/03/20 10:34 Respiratory Rate 18 05/03/20 10:34 Blood Pressure 116/66 05/03/20 10:34 Pulse Oximetry 99 05/03/20 10:34 MDM - Abdominal Pain MDM Narrative: Medical decision making narrative: Patient comes in today with complaints of lower abdominal pain starting this morning. Patient states that she has not had a good bowel movement in about a week. Patient appears well. Exam notes abdomen soft nontender to palpation. Bowel sounds are present. Vital signs are normal. Differential diagnosis includes appendicitis, constipation, enteritis, colitis, diverticulitis. Laboratory values were normal, urinalysis was clear. CT scan noted no appendicitis but did note some increased stool in the colon. Recommend treatment for constipation. Encourage plenty of fluids and healthy diet. Patient reported understanding. Lab Data: Labs: Lab Results 05/03/20 05/03/20 05/03/20 Range/Units 09:20 09:20 09:20 WBC 8.3 (4.0-10.0) 10^3/ uL RBC 5.11 (4.1-5.3) 10^6/u L Hgb 14.9 (11.5-15.3) g/dL Hct 46.1 (37.0-47.0) % MCV 90.2 (81-99) fL MCH 29.2 (28.0-34.0) pg MCHC 32.3 (30.0-36.0) g/dL RDW 12.4 (12.1-15.1) % Plt Count 288 (130-400) 10^3/c mm MPV 9.3 (7.4-10.4) fL Neut % (Auto) 65.2 % Lymph % (Auto) 26.0 % [place] % (Auto) 6.5 % Eos % (Auto) 1.2 % Baso % (Auto) 0.7 % Neut # (Auto) 5.4 (1.8-7.7) 10^3/u L Lymph # (Auto) 2.2 (0.8-4.8) 10^3/u L [place] # (Auto) 0.5 (0.2-0.9) 10^3/u L Eos # (Auto) 0.1 (0.0-0.8) 10^3/u L Baso # (Auto) 0.1 (0.0-0.1) 10^3/u L Nucleated RBC % (a uto) 0 % Nucleated RBCs # 0.0 /100WBC Sodium 138 (136-145) mmol/L Potassium 3.3 L (3.5-5.1) mmol/L Chloride 99 (98-107) mmol/L Carbon Dioxide 26 (22-29) mmol/L Anion Gap 16.3 (5-19) BUN 18 (6-20) mg/dL Creatinine 0.9 (0.5-0.9) mg/dL GFR Calculation 66.8 L (90-130) mL/min Glucose 194 H (65-115) mg/dL Calculated Osmolal ity 288 (285-295) mOsm/k g Calcium 9.7 (8.5-10.5) mg/dL Total Bilirubin 0.4 (0.15-1.2) mg/dL AST 19 (0-32) U/L ALT 24 (0-33) U/L Alkaline Phosphata se 82 (35-105) IU/L Total Protein 8.3 (6.6-8.7) g/dL Albumin 4.1 (3.5-5.2) g/dL Globulin 4.2 (1.3-4.6) g/dL Lipase 55 (13-60) U/L HCG, Qual Negative (Negative) Urine Color (Yellow) Urine Appearance (CLEAR) Urine pH (5-7) Ur Specific Gravit y (1.005-1.030) Urine Protein (Negative) Urine Glucose (UA) (Normal) Urine Ketones (Negative) Urine Blood (Negative) Urine Nitrate (Negative) Urine Bilirubin (NEGATIVE) Urine Urobilinogen (Negative) mg/dL Ur Leukocyte Cleo ase (Negative) Urine RBC (0-2) /hpf Urine WBC (0-5) /hpf Ur Squamous Epith Cells (0-5) Urine Bacteria (NONE) Urine Mucus 05/03/20 Range/Units 09:20 WBC (4.0-10.0) 10^3/ uL RBC (4.1-5.3) 10^6/u L Hgb (11.5-15.3) g/dL Hct (37.0-47.0) % MCV (81-99) fL MCH (28.0-34.0) pg MCHC (30.0-36.0) g/dL RDW (12.1-15.1) % Plt Count (130-400) 10^3/c mm MPV (7.4-10.4) fL Neut % (Auto) % Lymph % (Auto) % [place] % (Auto) % Eos % (Auto) % Baso % (Auto) % Neut # (Auto) (1.8-7.7) 10^3/u L Lymph # (Auto) (0.8-4.8) 10^3/u L [place] # (Auto) (0.2-0.9) 10^3/u L Eos # (Auto) (0.0-0.8) 10^3/u L Baso # (Auto) (0.0-0.1) 10^3/u L Nucleated RBC % (a uto) % Nucleated RBCs # /100WBC Sodium (136-145) mmol/L Potassium (3.5-5.1) mmol/L Chloride (98-107) mmol/L Carbon Dioxide (22-29) mmol/L Anion Gap (5-19) BUN (6-20) mg/dL Creatinine (0.5-0.9) mg/dL GFR Calculation (90-130) mL/min Glucose (65-115) mg/dL Calculated Osmolal ity (285-295) mOsm/k g Calcium (8.5-10.5) mg/dL Total Bilirubin (0.15-1.2) mg/dL AST (0-32) U/L ALT (0-33) U/L Alkaline Phosphata se (35-105) IU/L Total Protein (6.6-8.7) g/dL Albumin (3.5-5.2) g/dL Globulin (1.3-4.6) g/dL Lipase (13-60) U/L HCG, Qual (Negative) Urine Color Straw (Yellow) Urine Appearance Sl hazy (CLEAR) Urine pH 5 (5-7) Ur Specific Gravit y 1.020 (1.005-1.030) Urine Protein Neg (Negative) Urine Glucose (UA) Norm (Normal) Urine Ketones Negative (Negative) Urine Blood 2+ H (Negative) Urine Nitrate Negative (Negative) Urine Bilirubin Neg (NEGATIVE) Urine Urobilinogen Norm (Negative) mg/dL Ur Leukocyte Cleo ase Negative (Negative) Urine RBC 5-10 H (0-2) /hpf Urine WBC 0-4 H (0-5) /hpf Ur Squamous Epith Cells 0-4 H (0-5) Urine Bacteria 1+ H (NONE) Urine Mucus Trace Discharge Plan Discharge Patient Disposition: Home, Self-Care Clinical Impression: Abdominal pain Qualifiers: Abdominal location: lower abdomen, unspecified Qualified Code(s): R10.30 - Lower abdominal pain, unspecified Constipation Qualifiers: Constipation type: unspecified constipation type Qualified Code(s): K59.00 - Constipation, unspecified Condition: Stable Prescriptions: New Senokot-S 8.6-50 mg tablet 2 tab-cap PO BID PRN (Reason: constipation) Qty: 20 RF: 0 No Action hydroxyzine HCl 25 mg tablet 25 mg PO BID PRN (Reason: Anxiety) RF: 0 docusate sodium 100 mg capsule 100 mg PO PRN RF: 0 levothyroxine 100 mcg capsule 100 mcg PO DAILY RF: 0 losartan 50 mg tablet 50 mg PO DAILY RF: 0 citalopram [Celexa] 20 mg tablet 20 mg PO DAILY Qty: 30 RF: 2 buspirone 15 mg tablet 15 mg PO TID Qty: 90 RF: 2 (DME) lancets [Accu-Chek Softclix Lancets] Misc See Rx Instructions .ROUTE .MEDSUPPLY Qty: 50 RF: 0 (DME) Accu-Chek Leeann Plus test strp Strip See Rx Instructions .ROUTE .MEDSUPPLY Qty: 100 RF: 0 (DME) blood-glucose meter [Accu-Chek Leeann Plus Meter] Misc See Rx Instructions .ROUTE .MEDSUPPLY Qty: 1 RF: 0 (DME) GLUCOMETER Qty: 1 RF: 0 (DME) lancets [Accu-Chek Fastclix Lancet Drum] Misc See Rx Instructions .ROUTE .MEDSUPPLY Qty: 50 RF: 0 amlodipine [Norvasc] 5 mg tablet 5 mg PO DAILY Qty: 90 RF: 0 simvastatin 20 mg tablet 20 mg PO DAILY Qty: 30 RF: 2 indapamide 2.5 mg tablet 2.5 mg PO QAM Qty: 30 RF: 0 Januvia 100 mg tablet 100 mg PO DAILY Qty: 30 RF: 0 topiramate 50 mg capsule,extended release 24hr 50 mg PO BID Qty: 60 RF: 0 (DME) lancing device with lancets [Accu-Chek Soft Dev Lancets] Kit See Rx Instructions .ROUTE .MEDSUPPLY Qty: 100 RF: 2 liothyronine 5 mcg tablet 5 mcg PO DAILY RF: 0 paroxetine HCl 20 mg tablet 20 mg PO DAILY RF: 0 cholecalciferol (vitamin D3) 1,250 mcg (50,000 unit) capsule 50,000 unit PO Q7D RF: 0 Singulair 10 mg tablet 10 mg PO DAILY RF: 0 Discharge Orders: Discharge Order (Routine); Ordered 05/03/20 Ordered By: Ash Burton Referrals: Che Day DO [Primary Care Provider] - Discharge Diet: Usual diet Discharge Activity: Increase activity as tolerated Patient Instructions: Abdominal Pain (ED) Activity Restrictions/Additional Instructions: Drink plenty of water. Take medications as directed for constipation. Eat a healthy diet with plenty of fruits and vegetables. Follow-up with primary care in 1 week. Return to the ER for high fever, blood in vomit or stool. Coding Level of Care Code ED Remelt Pan Tank Operator for Chg Fwd Exam Comprehensive
[2020-05-03 09:06] VITALS: BP 131/89; PULSE 82; RESP 20; TEMP 36.8; O2SAT 98; BMI 59.7
[2020-05-03 09:27] LABS: Basophils # 0.1 10^3/uL (0.0-0.1); Basophils % 0.7 %; Eosinophils # 0.1 10^3/uL (0.0-0.8); Eosinophils % 1.2 %; Hematocrit 46.1 % (37.0-47.0); Hemoglobin 14.9 g/dL (11.5-15.3); Lymphocytes # 2.2 10^3/uL (0.8-4.8); Mean Corpuscular HGB Conc 32.3 g/dL (30.0-36.0); Mean Corpuscular Hemoglobin 29.2 pg (28.0-34.0); Mean Corpuscular Volume 90.2 fL (81-99); Mean Platelet Volume 9.3 fL (7.4-10.4); Monocytes # 0.5 10^3/uL (0.2-0.9); Monocytes % 6.5 %; Neutrophils # 5.4 10^3/uL (1.8-7.7); Neutrophils % 65.2 %; Nucleated Red Blood Cells % 0 %; Platelet Count 288 10^3/cmm (130-400); Red Blood Count 5.11 10^6/uL (4.1-5.3); Red Cell Distribution Width 12.4 % (12.1-15.1); White Blood Count 8.3 10^3/uL (4.0-10.0)
[2020-05-03 09:44] LABS: Alanine Aminotransferase 24 U/L (0-33); Albumin Level 4.1 g/dL (3.5-5.2); Alkaline Phosphatase 82 IU/L (35-105); Anion Gap 16.3 (5-19); Aspartate Amino Transferase 19 U/L (0-32); Blood Urea Nitrogen 18 mg/dL (6-20); Calcium 9.7 mg/dL (8.5-10.5); Carbon Dioxide 26 mmol/L (22-29); Chloride 99 mmol/L (98-107); Globulin 4.2 g/dL (1.3-4.6); Glomerular Filtration Rate 66.8 mL/min (90-130); Glucose 194 mg/dL (65-115); HCG, Serum Qual Negative (Negative); Lipase 55 U/L (13-60); Osmolality Calculated 288 mOsm/kg (285-295); Potassium 3.3 mmol/L (3.5-5.1); Sodium 138 mmol/L (136-145); Total Bilirubin 0.4 mg/dL (0.15-1.2); Total Protein 8.3 g/dL (6.6-8.7)
[2020-05-03 09:47] LABS: Add Urine Microscopic? YES; Bilirubin Urine Neg (NEGATIVE); Blood Urine 2+ (Negative); Glucose Urine UA Norm (Normal); Ketones Urine Negative (Negative); Leukocyte Esterase Urine Negative (Negative); Nitrate Urine Negative (Negative); Protein Urine Neg (Negative); Urine Appearance SL Hazy (CLEAR); Urine Color Straw (Yellow); Urobilinogen Urine Norm (Negative); pH Urine 5 (5-7)
--- NOTE | 2020-05-03 09:47 | CTR_ITS ---
PROCEDURE INFORMATION: Exam: CT Abdomen And Pelvis With Contrast Exam date and time: 05/03/2020 10:28 AM Age: 50 years old Clinical indication: Constipation; Abdominal pain; Generalized; Prior surgery; Surgery type: Hysterectomy, gallbladder; Additional info: Abd pain, constipation TECHNIQUE: Imaging protocol: Computed tomography of the abdomen and pelvis with intravenous contrast. Radiation optimization: All CT scans at this facility use at least one of these dose optimization techniques: automated exposure control; mA and/or kV adjustment per patient size (includes targeted exams where dose is matched to clinical indication); or iterative reconstruction. Contrast material: OMNIPAQUE 300; Contrast volume: 95 ml; Contrast route: INTRAVENOUS (IV); COMPARISON: No relevant prior studies available. RADIATION DOSE METRICS: Total DLP (mGy-cm): 2192.92 FINDINGS: Liver: Mild nodularity of the liver is present. Correlate regarding risk factors for hepatocellular disease. Calcified granulomas within the liver Gallbladder and bile ducts: Surgical clips are present in the region of the gallbladder fossa. Pancreas: Normal. No ductal dilation. Spleen: Normal. No splenomegaly. Adrenals: Normal. No mass. Kidneys and ureters: Normal. No hydronephrosis. Stomach and bowel: Moderate amount stool within the large bowel. Appendix: No evidence of appendicitis. Intraperitoneal space: No free fluid within the pelvis or within the dependent portions of the peritoneum. Vasculature: Unremarkable. No abdominal aortic aneurysm. Lymph nodes: Unremarkable. No enlarged lymph nodes. Bladder: Unremarkable as visualized. Reproductive: Prior hysterectomy. Bones/joints: The osseous structures are unremarkable other than mild degenerative disk disease.. No fracture. Soft tissues: Unremarkable. Other findings: No acute intra-abdominal process. No inflammatory process. No obstruction. CT/CT abdomen pelvis w con* [id number] IMPRESSION: 1. No acute intra-abdominal process. No inflammatory process. No obstruction. 2. No free fluid within the pelvis or within the dependent portions of the peritoneum. 3. Mild nodularity of the liver is present. Correlate regarding risk factors for hepatocellular disease. 4. Moderate amount stool within the large bowel. Radiation Dose CTDIVOL = (mGy): DLP = 2192.92 (mGy-cm)
[2020-05-03 09:49] LABS: Squamous Epithelial Cell Urine 0-4 (0-5); WBC Urine 0-4 /hpf (0-5)
[2020-05-03 09:50] LABS: Add Urine Culture? No; Bacteria Urine 1+; Mucus Urine TRACE
[2020-05-03] MEDS: iohexol 300 mg/mL 100 mL Btl IV (10:29)
[2020-05-03] MEDS: sodium chloride 0.9% 1,000 ML 999 ML IV (10:32)
[2020-05-03 10:34] VITALS: BP 116/66; PULSE 69; RESP 18; O2SAT 99
[2020-05-03 12:26] VITALS: BP 139/74; PULSE 71; RESP 20; O2SAT 99
== END 2020-05-03 12:32 | disposition home or self-care (01) ==
PROVIDERS: Emergency Provider Nurse Practitioner Family; PCP Family Medicine
DX: K59.00 Constipation, unspecified (principal); Z87.891 Personal history of nicotine dependence; E11.9 Type 2 diabetes mellitus without complications; E78.5 Hyperlipidemia, unspecified; I10 Essential (primary) hypertension
CPT/HCPCS: 12345; 74177; 80053; 81001; 83690; 84703; 85025; 96360; 99282; 99283; J7030; Q9967

== ENCOUNTER → 2020-05-09 09:58 | Outpatient (BNVA) | payer MEDICARE, MEDICAID, SELFPAY | PROVIDERS: PCP Family Medicine; Visit Provider Family Medicine | DX: E11.9 Type 2 diabetes mellitus without complications (principal) | CPT/HCPCS: 80061; 82044; 83036 ==

== ENCOUNTER 2020-05-26 01:22 | Emergency (ER) | payer MEDICARE, MEDICAID, SELFPAY ==
[2020-05-26 01:46] VITALS: BP 133/85; PULSE 99; RESP 20; TEMP 36.7; O2SAT 98
--- NOTE | 2020-05-26 03:26 | W.ED.NAVMDI ---
HPI - Nausea/Vomiting/Diarrhea General: Chief complaint: Nausea/Vomiting/Diarrhea Stated complaint: n/v/d Time Seen by Provider: 05/26/20 03:22 Source: patient Mode of arrival: ambulatory Limitations: no limitations History of Present Illness: HPI Narrative: Nayla is a 50-year-old female who comes in complaining of vomiting. Patient states that she had some cramping abdominal pain this resolved though after she vomited. She denies any diarrhea, fever, chills, chest pain or shortness of breath. She has no cough. She is not had a fever. Patient denies any urinary symptoms or any vaginal discharge or bleeding. To her knowledge she is not been around anybody else sick. Patient states that she has irritable bowel syndrome and this feels like 1 of her typical flareups from irritable bowel syndrome. Associated nausea: Yes Associated symtoms: Reports nausea; Denies change in vision, chest pain, diaphoresis, dizziness, dysuria, fatigue, headache(s), malaise, palpitations or syncope Review of Systems Const: Denies: fever(s), chills, body aches, fatigue, malaise or diaphoresis Eyes: Denies: change in vision, blurry vision, blind spots, photophobia, eye discharge or eye redness ENMT: Denies: throat pain, odynophagia, hoarseness, swelling of lips/tongue, oral sores, ear or mastoid pain, ear discharge, change in hearing or nasal discharge Card: Denies: chest pain, palpitations, irregular heart rhythm, edema, lightheadedness, syncope, pre-syncope, dyspnea on exertion or orthopnea Resp: Denies: dyspnea, productive cough, non-productive cough, wheezing, hemoptysis or chest congestion GI: Reports: abdominal pain, nausea and vomiting; Denies: hematemesis, coffee ground emesis, heartburn, diarrhea, constipation, GI cramping, hematochezia or melena : Denies: flank pain, dysuria, urinary frequency, urinary urgency or hematuria Musc: Denies: neck pain, back pain, extremity pain, extremity swelling, joint pain, joint swelling, joint redness, joint warmth or joint stiffness Skin/Breast: Denies: rash, pruritus, erythema, skin tenderness or jaundice Neuro: Denies: headache(s), numbness in extremities, weakness in extremities, sensory changes, lack of coordination, difficulty walking, dizziness, vertigo, confusion, Slurred speech present or seizure-like activity Red/Lymph: Denies: easy bruising, easy bleeding, petechiae, purpura or enlarged lymph nodes All/Imm: Denies: urticaria, throat swelling, tongue swelling, facial swelling or acute wheezing PFSH ED PFSH: Medical History Acute serous otitis media of left ear Anxiety Borderline intellectual functioning Controlled type 2 diabetes mellitus, without long-term current use of insulin Depression Dyslipidemia Enrolled in chronic care management Generalized anxiety disorder GERD (gastroesophageal reflux disease) Hypertension Hypothyroidism Obesity BHARAT (obstructive sleep apnea) Seizure disorder Tinnitus Surgical History History of colonoscopy with polypectomy (~09/2018) History of esophagogastroduodenoscopy (EGD) (~09/2018) History of hysterectomy with oophorectomy History of laparoscopic cholecystectomy Family History Grandmother Cancer Father Lung disease Diabetes Denies family history of Anesthesia complication Bleeding disorder Social History Smoking and tobacco status: never smoked Quit status (tobacco): has quit using tobacco Second hand smoke exposure: No Smoking risk assessment/counseling performed?: No Alcohol intake: never Desire information about alcohol rehabilitation?: No Counseling given: No Desire information about substance/drug rehabilitation?: No Counseling given: No Adopted: No Caregiver/support person: Yes Lives independently: Yes Household members: family Housing: House Marital status: Single Highest education level completed: High School Graduate service: No Current occupational status: employed 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 Current occupational exposures/hazards: No Pets and animals: Yes History of recent travel: No Sexually active: Yes Current gender identity: Female Ania/Protestant: None Special ania needs: No Agree to transfusion: Yes Financial difficulty paying for basics: Not Very Hard Female Reproductive History: Date of last menstrual period: 03/19/20 Physical Exam Const: COMMON NORMALS: no acute distress, patient oriented x3, no limitations, healthy appearing and well nourished GENERAL APPEARANCE: cooperative, well kempt and well developed HENMT: COMMON NORMALS: normocephalic, atraumatic, external ears normal, EAC's normal and Normal external nose present HEAD & SCALP: normal to inspection, normocephalic and atraumatic FACE & SINUS: normal facial exam and face symmetric NOSE: Normal external nose present and Normal nares present EXTERNAL EAR: Yes external ears normal EXTERNAL AUDITORY CANAL: EAC's normal MOUTH: Normal oral and palatal mucosa present, lip normal and tongue normal Eye: COMMON NORMALS: Equal, round and reactive pupils present and conjunctivae normal GENERAL EYE: appearance normal, both eyes and all related structures ALIGNMENT: Yes alignment normal PERIORBITAL: periorbital findings normal EYELID: eyelids normal CONJUNCTIVA: Yes conjunctivae normal SCLERA: sclerae normal PUPIL: Yes Equal, round and reactive pupils present Neck/C-Spine: COMMON NORMALS: full ROM, no lymphadenopathy, supple, no meningeal signs and no JVD GENERAL: Yes normal visual inspection and Yes trachea midline Chest: COMMONS NORMALS: normal inspection of the chest and normal palpation of entire chest wall Resp: COMMON NORMALS: normal respiratory effort, No retractions and No use of accessory muscles EFFORT & INSPECTION: Yes able to speak in complete sentences and Yes symmetric chest movement AUSCULTATION: no crackles, no rales, no rhonchi and no wheezes Cardio: COMMON NORMALS: no JVD, regular rate, regular rhythm, S1 normal heart sound present and S2 normal heart sound present RATE: regular rate RHYTHM: regular rhythm HEART SOUNDS: S1 normal heart sound present, S2 normal heart sound present, no click, no gallops, no murmurs, no rubs and abnormal split S2 GI: COMMON NORMALS: Soft to palpation and No hepatosplenomegaly present PALPATION: Yes Soft to palpation, No Tenderness to palpation present (GI), No Guarding due to palpation present (GI), No Rigid due to palpation, Yes No hepatosplenomegaly present, No Hernia present, No Palpable mass present and No Pulsatile mass present : COMMON NORMALS: Yes no CVA tenderness BLADDER/KIDNEY EXAM: Yes no CVA tenderness EXTERNAL FEMALE EXAM: No Hernia present Back/Pelvis: COMMON NORMALS: no CVA tenderness, thoracic and lumbar spine normal to inspection, no thoracic nor lumbar tenderness and thoraco-lumbar ROM normal Extremity: COMMON NORMALS: normal to inspection, full ROM, capillary refill normal, no joint enlargement, no clubbing, cyanosis or edema and no calf tenderness Neuro: COMMON NORMALS: patient oriented x3, CN's II-XII intact bilaterally, moves all extremities, no focal motor deficits and no sensory deficits noted MENINGEAL SIGNS: Yes no meningeal signs SPEECH: speech normal Psych: COMMON NORMALS: mental status grossly normal, Normal thought process present, cooperative, normal affect, speech normal and activity/motor behavior normal APPEARANCE: Yes well kempt SPEECH: Yes normal speech THOUGHT PROCESS: Normal thought process present Skin: COMMON NORMALS: no rashes or lesions noted, turgor normal, no jaundice, no petechiae and no mottling GENERAL SKIN EXAM: no rashes or lesions noted and turgor normal Course Vital Signs: Vital signs: Vital Signs Temperature 98.1 F 05/26/20 01:46 Pulse Rate 80 05/26/20 03:53 Respiratory Rate 20 H 05/26/20 03:53 Blood Pressure 108/73 05/26/20 03:53 Pulse Oximetry 98 05/26/20 03:53 MDM - Nausea/Vomiting/Diarrhea MDM Narrative: Medical decision making narrative: Patient is feeling better and is ready to go home. Her abdominal pain is still gone. On repeat exam there is no tenderness or signs of peritonitis. She is afebrile. She is not vomited here and no longer has nausea. Patient thinks is likely her IBS with constipation. There is no clinical sign of bowel obstruction. The patient declines a CT scan of the abdomen pelvis to definitively rule out bowel obstruction but does agree to return should her symptoms worsen. Overall patient is feeling much better and she is ready to go home. Lab Data: Attestation: I reviewed the patient's lab results. Labs: Lab Results 05/26/20 05/26/20 05/26/20 Range/Units 03:20 03:20 03:20 WBC 10.2 H (4.0-10.0) 10^3/ uL RBC 5.08 (4.1-5.3) 10^6/u L Hgb 15.0 (11.5-15.3) g/dL Hct 45.0 (37.0-47.0) % MCV 88.6 (81-99) fL MCH 29.5 (28.0-34.0) pg MCHC 33.3 (30.0-36.0) g/dL RDW 12.6 (12.1-15.1) % Plt Count 289 (130-400) 10^3/c mm MPV 9.4 (7.4-10.4) fL Neut % (Auto) 69.0 % Lymph % (Auto) 21.6 % [place] % (Auto) 7.4 % Eos % (Auto) 0.9 % Baso % (Auto) 0.6 % Neut # (Auto) 7.05 (1.8-7.7) 10^3/u L Lymph # (Auto) 2.2 (0.8-4.8) 10^3/u L [place] # (Auto) 0.8 (0.2-0.9) 10^3/u L Eos # (Auto) 0.1 (0.0-0.8) 10^3/u L Baso # (Auto) 0.1 (0.0-0.1) 10^3/u L Nucleated RBC % (a uto) 0 % Nucleated RBCs # 0.0 /100WBC Sodium 136 (136-145) mmol/L Potassium 3.1 L (3.5-5.1) mmol/L Chloride 99 (98-107) mmol/L Carbon Dioxide 23 (22-29) mmol/L Anion Gap 17.1 (5-19) BUN 19 (6-20) mg/dL Creatinine 1.0 H (0.5-0.9) mg/dL GFR Calculation 59.2 L (90-130) mL/min Glucose 214 H (65-115) mg/dL Calculated Osmolal ity 285 (285-295) mOsm/k g Calcium 9.6 (8.5-10.5) mg/dL Total Bilirubin 0.3 (0.15-1.2) mg/dL AST 14 (0-32) U/L ALT 21 (0-33) U/L Alkaline Phosphata se 85 (35-105) IU/L Total Protein 8.6 (6.6-8.7) g/dL Albumin 4.3 (3.5-5.2) g/dL Globulin 4.3 (1.3-4.6) g/dL Lipase 65 H (13-60) U/L HCG, Qual Negative (Negative) Urine Color (Yellow) Urine Appearance (CLEAR) Urine pH (5-7) Ur Specific Gravit y (1.005-1.030) Urine Protein (Negative) Urine Glucose (UA) (Normal) Urine Ketones (Negative) Urine Blood (Negative) Urine Nitrate (Negative) Urine Bilirubin (NEGATIVE) Urine Urobilinogen (Negative) mg/dL Ur Leukocyte Cleo ase (Negative) Urine RBC (0-2) /hpf Urine WBC (0-5) /hpf Ur Squamous Epith Cells (0-5) Amorphous Sediment Urine Bacteria (NONE) 05/26/20 Range/Units 03:25 WBC (4.0-10.0) 10^3/ uL RBC (4.1-5.3) 10^6/u L Hgb (11.5-15.3) g/dL Hct (37.0-47.0) % MCV (81-99) fL MCH (28.0-34.0) pg MCHC (30.0-36.0) g/dL RDW (12.1-15.1) % Plt Count (130-400) 10^3/c mm MPV (7.4-10.4) fL Neut % (Auto) % Lymph % (Auto) % [place] % (Auto) % Eos % (Auto) % Baso % (Auto) % Neut # (Auto) (1.8-7.7) 10^3/u L Lymph # (Auto) (0.8-4.8) 10^3/u L [place] # (Auto) (0.2-0.9) 10^3/u L Eos # (Auto) (0.0-0.8) 10^3/u L Baso # (Auto) (0.0-0.1) 10^3/u L Nucleated RBC % (a uto) % Nucleated RBCs # /100WBC Sodium (136-145) mmol/L Potassium (3.5-5.1) mmol/L Chloride (98-107) mmol/L Carbon Dioxide (22-29) mmol/L Anion Gap (5-19) BUN (6-20) mg/dL Creatinine (0.5-0.9) mg/dL GFR Calculation (90-130) mL/min Glucose (65-115) mg/dL Calculated Osmolal ity (285-295) mOsm/k g Calcium (8.5-10.5) mg/dL Total Bilirubin (0.15-1.2) mg/dL AST (0-32) U/L ALT (0-33) U/L Alkaline Phosphata se (35-105) IU/L Total Protein (6.6-8.7) g/dL Albumin (3.5-5.2) g/dL Globulin (1.3-4.6) g/dL Lipase (13-60) U/L HCG, Qual (Negative) Urine Color Yellow (Yellow) Urine Appearance Cloudy (CLEAR) Urine pH 5 (5-7) Ur Specific Gravit y 1.025 (1.005-1.030) Urine Protein Neg (Negative) Urine Glucose (UA) Norm (Normal) Urine Ketones Negative (Negative) Urine Blood 2+ H (Negative) Urine Nitrate Negative (Negative) Urine Bilirubin Neg (NEGATIVE) Urine Urobilinogen Norm (Negative) mg/dL Ur Leukocyte [place]o [place] Trace H (Negative) Urine RBC Rare (0-2) /hpf Urine WBC 0-4 H (0-5) /hpf Ur Squamous Epith Cells 15-25 H (0-5) Amorphous Sediment Not Reportable Urine Bacteria 1+ H (NONE) Discharge Plan Discharge Patient Disposition: Home, Self-Care Clinical Impression: Abdominal pain Qualifiers: Abdominal location: generalized Qualified Code(s): R10.84 - Generalized abdominal pain Condition: Stable Prescriptions: New Zofran 4 mg tablet 4 mg PO Q6H PRN (Reason: nausea and vomiting) Qty: 20 RF: 0 No Action naproxen PO RF: 0 cephalexin PO RF: 0 dicyclomine 10 mg capsule 10 mg PO QID RF: 0 ondansetron HCl [Zofran] 4 mg tablet 4 mg PO Q6H RF: 0 hydroxyzine HCl 25 mg tablet 25 mg PO BID PRN (Reason: Anxiety) RF: 0 docusate sodium 100 mg capsule 100 mg PO PRN RF: 0 levothyroxine 100 mcg capsule 100 mcg PO DAILY RF: 0 citalopram [Celexa] 20 mg tablet 20 mg PO DAILY Qty: 30 RF: 2 buspirone 15 mg tablet 15 mg PO TID Qty: 90 RF: 2 omeprazole 20 mg capsule,delayed release(DR/EC) 20 mg PO DAILY 14 Days Qty: 14 RF: 0 (DME) lancets [Accu-Chek Softclix Lancets] Misc See Rx Instructions .ROUTE .MEDSUPPLY Qty: 50 RF: 0 (DME) Accu-Chek Leeann Plus test strp Strip See Rx Instructions .ROUTE .MEDSUPPLY Qty: 100 RF: 0 (DME) blood-glucose meter [Accu-Chek Leeann Plus Meter] Mis See Rx Instructions .ROUTE .MEDSUPPLY Qty: 1 RF: 0 (DME) GLUCOMETER Qty: 1 RF: 0 (DME) lancets [Accu-Chek Fastclix Lancet Drum] [facility] [place] See Rx Instructions .ROUTE .MEDSUPPLY Qty: 50 RF: 0 (DME) lancing device with lancets [Accu-Chek Soft Dev Lancets] Kit See Rx Instructions .ROUTE .MEDSUPPLY Qty: 100 RF: 2 Victoza 3-Solitario 0.6 mg/0.1 mL (18 mg/3 mL) pen injector See Rx Instructions SUBCUT .COMPLEX Qty: 9 RF: 0 (DME) pen needle, diabetic [BD Ultra-Fine Short Pen Needle] 31 gauge x 5/16 needle See Rx Instructions .ROUTE .MEDSUPPLY Qty: 100 RF: 2 topiramate 50 mg capsule,extended release 24hr 50 mg PO BID Qty: 60 RF: 5 indapamide 2.5 mg tablet 2.5 mg PO QAM Qty: 30 RF: 5 simvastatin 20 mg tablet 20 mg PO DAILY Qty: 30 RF: 5 amlodipine [Norvasc] 5 mg tablet 5 mg PO DAILY Qty: 30 RF: 5 losartan 50 mg tablet 50 mg PO DAILY Qty: 30 RF: 2 liothyronine 5 mcg tablet 5 mcg PO DAILY RF: 0 paroxetine HCl 20 mg tablet 20 mg PO DAILY RF: 0 cholecalciferol (vitamin D3) 1,250 mcg (50,000 unit) capsule 50,000 unit PO Q7D RF: 0 Singulair 10 mg tablet 10 mg PO DAILY RF: 0 Discharge Orders: Discharge Order (Routine); Ordered 05/26/20 Ordered By: Juanita Chapa Referrals: Che Day DO [Primary Care Provider] - 1-3 days Discharge Diet: Advance as tolerated and Clear Liquid Discharge Activity: Increase activity as tolerated Patient Instructions: Abdominal Pain (ED) Activity Restrictions/Additional Instructions: Please return to the ER immediately for any of the signs or symptoms listed on your discharge instruction sheets, worsening/changing of your symptoms, you are not getting better as quickly as expected, or for ANY other cause or concerns. Return to the ER for increased pain, new onset of fever, vomiting, or for any other cause for concern. You have been offered a CT scan abdomen and pelvis to rule out appendicitis but have declined. If your pain returns or you simply change your mind please return to the ER immediately for recheck. Coding Level of Care Code ED Behavioral Health Specialist for Robyn Fwd Exam Comprehensive
[2020-05-26 03:36] LABS: Basophils # 0.1 10^3/uL (0.0-0.1); Basophils % 0.6 %; Eosinophils # 0.1 10^3/uL (0.0-0.8); Eosinophils % 0.9 %; Lymphocytes # 2.2 10^3/uL (0.8-4.8); Lymphocytes % 21.6 %; Mean Corpuscular HGB Conc 33.3 g/dL (30.0-36.0); Mean Corpuscular Hemoglobin 29.5 pg (28.0-34.0); Mean Corpuscular Volume 88.6 fL (81-99); Mean Platelet Volume 9.4 fL (7.4-10.4); Monocytes # 0.8 10^3/uL (0.2-0.9); Monocytes % 7.4 %; Neutrophils # 7.05 10^3/uL (1.8-7.7); Nucleated Red Blood Cells % 0 %; Platelet Count 289 10^3/cmm (130-400); Red Blood Count 5.08 10^6/uL (4.1-5.3); Red Cell Distribution Width 12.6 % (12.1-15.1); White Blood Count 10.2 10^3/uL (4.0-10.0)
[2020-05-26 03:45] LABS: HCG, Serum Qual Negative (Negative)
[2020-05-26] MEDS: ondansetron 2 mg/ML SDV 2 mL 4 MG IVP (03:50)
[2020-05-26] MEDS: sodium chloride 0.9% 1,000 ML 100 ML IV (03:51)
[2020-05-26 03:53] VITALS: BP 108/73; PULSE 80; RESP 20; O2SAT 98
[2020-05-26 03:57] LABS: Alanine Aminotransferase 21 U/L (0-33); Albumin Level 4.3 g/dL (3.5-5.2); Alkaline Phosphatase 85 IU/L (35-105); Anion Gap 17.1 (5-19); Aspartate Amino Transferase 14 U/L (0-32); Blood Urea Nitrogen 19 mg/dL (6-20); Calcium 9.6 mg/dL (8.5-10.5); Carbon Dioxide 23 mmol/L (22-29); Chloride 99 mmol/L (98-107); Globulin 4.3 g/dL (1.3-4.6); Glomerular Filtration Rate 59.2 mL/min (90-130); Glucose 214 mg/dL (65-115); Lipase 65 U/L (13-60); Osmolality Calculated 285 mOsm/kg (285-295); Potassium 3.1 mmol/L (3.5-5.1); Sodium 136 mmol/L (136-145); Total Bilirubin 0.3 mg/dL (0.15-1.2); Total Protein 8.6 g/dL (6.6-8.7)
[2020-05-26 04:20] LABS: Blood Urine 2+ (Negative); Glucose Urine UA Norm (Normal); Ketones Urine Negative (Negative); Protein Urine Neg (Negative); Specific Gravity, Urine 1.025 (1.005-1.030); Urine Appearance Cloudy (CLEAR); Urine Color Yellow (Yellow); pH Urine 5 (5-7)
[2020-05-26 04:21] LABS: Add Urine Microscopic? YES; Bacteria Urine 1+; Bilirubin Urine Neg (NEGATIVE); Leukocyte Esterase Urine Trace (Negative); Nitrate Urine Negative (Negative); RBC Urine RARE /hpf (0-2); Squamous Epithelial Cell Urine 15-25 (0-5); Urobilinogen Urine Norm (Negative); WBC Urine 0-4 /hpf (0-5)
[2020-05-26 04:50] LABS: Magnesium 1.7 mg/dL (1.7-2.3)
[2020-05-26] MEDS: potassium chloride ER 10 mEq Tablet 40 MEQ PO (05:03)
[2020-05-26 05:06] VITALS: PULSE 89; RESP 18; O2SAT 98
== END 2020-05-26 05:07 | disposition home or self-care (01) ==
PROVIDERS: Nurse Practitioner Family; Emergency Provider Emergency Medicine; PCP Family Medicine
DX: R10.84 Generalized abdominal pain (principal); E11.9 Type 2 diabetes mellitus without complications; E78.5 Hyperlipidemia, unspecified; I10 Essential (primary) hypertension; Z87.891 Personal history of nicotine dependence
CPT/HCPCS: 12345; 80053; 81001; 81003; 83690; 83735; 84703; 85025; 96361; 96374; 96375; 99283; J2405; J7030

== ENCOUNTER 2020-05-30 19:04 | Emergency (ER) | payer MEDICARE, MEDICAID, SELFPAY ==
[2020-05-30 19:07] VITALS: BP 146/90; PULSE 87; RESP 22; TEMP 36.4; O2SAT 95; BMI 608.4
[2020-05-30 19:54] LABS: Basophils % 0.6 %; Eosinophils # 0.2 10^3/uL (0.0-0.8); Eosinophils % 2.3 %; Lymphocytes # 1.4 10^3/uL (0.8-4.8); Lymphocytes % 21.4 %; Mean Corpuscular HGB Conc 32.6 g/dL (30.0-36.0); Mean Corpuscular Hemoglobin 29.4 pg (28.0-34.0); Mean Corpuscular Volume 90.3 fL (81-99); Mean Platelet Volume 9.5 fL (7.4-10.4); Monocytes # 0.4 10^3/uL (0.2-0.9); Monocytes % 5.8 %; Neutrophils # 4.58 10^3/uL (1.8-7.7); Neutrophils % 69.4 %; Nucleated Red Blood Cells % 0 %; Platelet Count 251 10^3/cmm (130-400); Red Blood Count 4.76 10^6/uL (4.1-5.3); Red Cell Distribution Width 12.6 % (12.1-15.1); White Blood Count 6.6 10^3/uL (4.0-10.0)
[2020-05-30 20:05] LABS: INR 0.95 (0.8-1.2)
[2020-05-30 20:13] LABS: Alanine Aminotransferase 23 U/L (0-33); Albumin Level 3.8 g/dL (3.5-5.2); Alkaline Phosphatase 66 IU/L (35-105); Anion Gap 12.3 (5-19); Aspartate Amino Transferase 22 U/L (0-32); Blood Urea Nitrogen 20 mg/dL (6-20); Calcium 9.7 mg/dL (8.5-10.5); Carbon Dioxide 27 mmol/L (22-29); Chloride 105 mmol/L (98-107); Globulin 3.6 g/dL (1.3-4.6); Glomerular Filtration Rate 66.8 mL/min (90-130); Glucose 220 mg/dL (65-115); Lipase 109 U/L (13-60); Osmolality Calculated 295 mOsm/kg (285-295); Potassium 3.3 mmol/L (3.5-5.1); Sodium 141 mmol/L (136-145); Total Bilirubin 0.2 mg/dL (0.15-1.2); Total Protein 7.4 g/dL (6.6-8.7)
--- NOTE | 2020-05-30 20:19 | CTR_ITS ---
PROCEDURE INFORMATION: Exam: CT Abdomen And Pelvis With Contrast Exam date and time: 05/30/2020 9:01 PM Age: 50 years old Clinical indication: Other: Black stools; Abdominal pain; Prior surgery; Surgery type: Gb TECHNIQUE: Imaging protocol: Computed tomography of the abdomen and pelvis with intravenous contrast. Radiation optimization: All CT scans at this facility use at least one of these dose optimization techniques: automated exposure control; mA and/or kV adjustment per patient size (includes targeted exams where dose is matched to clinical indication); or iterative reconstruction. Contrast material: OMNI 300; Contrast volume: 95 ml; Contrast route: INTRAVENOUS (IV); COMPARISON: CT abdomen pelvis w con* [id number] 05/03/2020 10:17 AM RADIATION DOSE METRICS: Total DLP (mGy-cm): 1560.97 FINDINGS: Liver: There is no focal abnormality within the liver. Gallbladder and bile ducts: There has been a cholecystectomy. Pancreas: The pancreas is normal. Spleen: The spleen is normal. Adrenals: The adrenal glands are normal. Kidneys and ureters: The kidneys are normal. Stomach and bowel: There is no evidence of colitis/diverticulitis. Appendix: No evidence of appendicitis. Intraperitoneal space: Unremarkable. No free air. No significant fluid collection. Vasculature: Unremarkable. No abdominal aortic aneurysm. Lymph nodes: Unremarkable. No enlarged lymph nodes. Bladder: Unremarkable as visualized. Reproductive: There has been a hysterectomy. Bones/joints: Unremarkable. No acute fracture. Soft tissues: Unremarkable. CT/CT abdomen pelvis w con* [id number] IMPRESSION: No acute finding. Radiation Dose CTDIVOL = (mGy): DLP = 1560.97 (mGy-cm)
[2020-05-30 20:37] VITALS: BP 133/97; BP 148/91; BP 163/99; PULSE 65; PULSE 70; PULSE 93
--- NOTE | 2020-05-30 20:50 | W.ED.ABDPA2 ---
HPI - Abdominal Pain General: Chief Complaint: Abdominal Pain Stated Complaint: DARK STOOL Time Seen by Provider: 05/30/20 20:14 Source: patient and family Mode of arrival: ambulatory Limitations: no limitations History of Present Illness: HPI narrative: Nayla is a 50-year-old male who comes in complaining of a dark black stool. She is been having an upset stomach recently and took some Pepto-Bismol. Denies any vomiting, medic easier, hematic emesis or coffee-ground emesis. Patient denies any fever. Patient states it was just one large black solid stool not in the form of diarrhea or melena but a black formed stool. She denies any lightheadedness or dizziness. She denies any syncope or near syncope type symptoms. She has any chest pain, shortness of breath or other complaints. Associated Symptoms: Reports melena; Denies chills, coffee ground emesis, constipation, GI cramping, diarrhea, dysuria, fever(s), heartburn, hematochezia, hematuria, hematemesis, nausea, syncope and vomiting Related Data: Date of Last Menstrual Period: 03/19/20 Review of Systems Const: Denies: fever(s), chills, body aches, fatigue, malaise or diaphoresis Eyes: Denies: change in vision, blurry vision, blind spots, photophobia, eye discharge or eye redness ENMT: Denies: throat pain, odynophagia, hoarseness, swelling of lips/tongue, oral sores, ear or mastoid pain, ear discharge, change in hearing or nasal discharge Card: Denies: chest pain, palpitations, irregular heart rhythm, edema, lightheadedness, syncope, pre-syncope, dyspnea on exertion or orthopnea Resp: Denies: dyspnea, productive cough, non-productive cough, wheezing, hemoptysis or chest congestion GI: Reports: melena; Denies: abdominal pain, nausea, vomiting, hematemesis, coffee ground emesis, heartburn, diarrhea, constipation, GI cramping or hematochezia : Denies: flank pain, dysuria, urinary frequency, urinary urgency or hematuria Musc: Denies: neck pain, back pain, extremity pain, extremity swelling, joint pain, joint swelling, joint redness, joint warmth or joint stiffness Skin/Breast: Denies: rash, pruritus, erythema, skin tenderness or jaundice Neuro: Denies: headache(s), numbness in extremities, weakness in extremities, sensory changes, lack of coordination, difficulty walking, dizziness, vertigo, confusion, Slurred speech present or seizure-like activity Red/Lymph: Denies: easy bruising, easy bleeding, petechiae, purpura or enlarged lymph nodes All/Imm: Denies: urticaria, throat swelling, tongue swelling, facial swelling or acute wheezing PFSH ED PFSH: Medical History Acute serous otitis media of left ear Anxiety Borderline intellectual functioning Controlled type 2 diabetes mellitus, without long-term current use of insulin Depression Dyslipidemia Enrolled in chronic care management Generalized anxiety disorder GERD (gastroesophageal reflux disease) Hypertension Hypothyroidism Obesity BHARAT (obstructive sleep apnea) Seizure disorder Tinnitus Surgical History History of colonoscopy with polypectomy (~09/2018) History of esophagogastroduodenoscopy (EGD) (~09/2018) History of hysterectomy with oophorectomy History of laparoscopic cholecystectomy Family History Grandmother Cancer Father Lung disease Diabetes Denies family history of Anesthesia complication Bleeding disorder Social History Smoking and tobacco status: never smoked Quit status (tobacco): has quit using tobacco Second hand smoke exposure: No Smoking risk assessment/counseling performed?: No Alcohol intake: never Desire information about alcohol rehabilitation?: No Counseling given: No Desire information about substance/drug rehabilitation?: No Counseling given: No Adopted: No Caregiver/support person: Yes Lives independently: Yes Household members: family Housing: House Marital status: Single Highest education level completed: High School Graduate service: No Current occupational status: employed 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 Current occupational exposures/hazards: No Pets and animals: Yes History of recent travel: No Sexually active: Yes Current gender identity: Female Ania/Buddhism: None Special ania needs: No Agree to transfusion: Yes Financial difficulty paying for basics: Not Very Hard Female Reproductive History: Date of last menstrual period: 03/19/20 Physical Exam Const: COMMON NORMALS: no acute distress, patient oriented x3, no limitations, healthy appearing and well nourished GENERAL APPEARANCE: cooperative, well kempt and well developed HENMT: COMMON NORMALS: normocephalic, atraumatic, external ears normal, EAC's normal and Normal external nose present HEAD & SCALP: normal to inspection, normocephalic and atraumatic FACE & SINUS: normal facial exam and face symmetric NOSE: Normal external nose present and Normal nares present EXTERNAL EAR: Yes external ears normal EXTERNAL AUDITORY CANAL: EAC's normal MOUTH: Normal oral and palatal mucosa present, lip normal and tongue normal Eye: COMMON NORMALS: Equal, round and reactive pupils present and conjunctivae normal GENERAL EYE: appearance normal, both eyes and all related structures ALIGNMENT: Yes alignment normal PERIORBITAL: periorbital findings normal EYELID: eyelids normal CONJUNCTIVA: Yes conjunctivae normal SCLERA: sclerae normal PUPIL: Yes Equal, round and reactive pupils present Neck/C-Spine: COMMON NORMALS: full ROM, no lymphadenopathy, supple, no meningeal signs and no JVD GENERAL: Yes normal visual inspection and Yes trachea midline Chest: COMMONS NORMALS: normal inspection of the chest and normal palpation of entire chest wall Resp: COMMON NORMALS: normal respiratory effort, No retractions and No use of accessory muscles EFFORT & INSPECTION: Yes able to speak in complete sentences and Yes symmetric chest movement AUSCULTATION: no crackles, no rales, no rhonchi and no wheezes Cardio: COMMON NORMALS: no JVD, regular rate, regular rhythm, S1 normal heart sound present and S2 normal heart sound present RATE: regular rate RHYTHM: regular rhythm HEART SOUNDS: S1 normal heart sound present, S2 normal heart sound present, no click, no gallops, no murmurs, no rubs and abnormal split S2 GI: COMMON NORMALS: Soft to palpation and No hepatosplenomegaly present PALPATION: Yes Soft to palpation, No Tenderness to palpation present (GI), No Guarding due to palpation present (GI), No Rigid due to palpation, Yes No hepatosplenomegaly present, No Hernia present, No Palpable mass present and No Pulsatile mass present RECTAL EXAM: other (Hemoccult negative) : COMMON NORMALS: Yes no CVA tenderness BLADDER/KIDNEY EXAM: Yes no CVA tenderness EXTERNAL FEMALE EXAM: No Hernia present Back/Pelvis: COMMON NORMALS: no CVA tenderness, thoracic and lumbar spine normal to inspection, no thoracic nor lumbar tenderness and thoraco-lumbar ROM normal Extremity: COMMON NORMALS: normal to inspection, full ROM, capillary refill normal, no joint enlargement, no clubbing, cyanosis or edema and no calf tenderness Neuro: COMMON NORMALS: patient oriented x3, CN's II-XII intact bilaterally, moves all extremities, no focal motor deficits and no sensory deficits noted MENINGEAL SIGNS: Yes no meningeal signs SPEECH: speech normal Psych: COMMON NORMALS: mental status grossly normal, Normal thought process present, cooperative, normal affect, speech normal and activity/motor behavior normal APPEARANCE: Yes well kempt SPEECH: Yes normal speech THOUGHT PROCESS: Normal thought process present Skin: COMMON NORMALS: no rashes or lesions noted, turgor normal, no jaundice, no petechiae and no mottling GENERAL SKIN EXAM: no rashes or lesions noted and turgor normal Course Vital Signs: Vital signs: Vital Signs Temperature 97.5 F L 05/30/20 19:07 Pulse Rate 65 05/30/20 20:37 Respiratory Rate 22 H 05/30/20 19:07 Blood Pressure 148/91 05/30/20 20:37 Pulse Oximetry 95 05/30/20 19:07 MDM - Abdominal Pain MDM Narrative: Medical decision making narrative: Patient comes in complaining of a black stool. She is not orthostatic, she is not anemic and her CT scan is normal. I believe the most likely cause for her one solid formed black stool was Pepto-Bismol. I reviewed all this with Dr. Fulton who is in agreement. He knows the patient well and follows her in his office and is happy to recheck her in the office tomorrow. I reviewed this plan with her and she is in agreement. She denies having any other questions or concerns. Lab Data: Attestation: I reviewed the patient's lab results. Labs: Lab Results 05/30/20 05/30/20 05/30/20 Range/Units 19:33 19:33 19:33 WBC 6.6 (4.0-10.0) 10^3/ uL RBC 4.76 (4.1-5.3) 10^6/u L Hgb 14.0 (11.5-15.3) g/dL Hct 43.0 (37.0-47.0) % MCV 90.3 (81-99) fL MCH 29.4 (28.0-34.0) pg MCHC 32.6 (30.0-36.0) g/dL RDW 12.6 (12.1-15.1) % Plt Count 251 (130-400) 10^3/c mm MPV 9.5 (7.4-10.4) fL Neut % (Auto) 69.4 % Lymph % (Auto) 21.4 % Mcminn % (Auto) 5.8 % Eos % (Auto) 2.3 % Baso % (Auto) 0.6 % Neut # (Auto) 4.58 (1.8-7.7) 10^3/u L Lymph # (Auto) 1.4 (0.8-4.8) 10^3/u L Mcminn # (Auto) 0.4 (0.2-0.9) 10^3/u L Eos # (Auto) 0.2 (0.0-0.8) 10^3/u L Baso # (Auto) 0.0 (0.0-0.1) 10^3/u L Nucleated RBC % (a uto) 0 % Nucleated RBCs # 0.0 /100WBC PT 13.00 (10.5-13.3) SECO NDS INR 0.95 (0.8-1.2) Sodium 141 (136-145) mmol/L Potassium 3.3 L (3.5-5.1) mmol/L Chloride 105 (98-107) mmol/L Carbon Dioxide 27 (22-29) mmol/L Anion Gap 12.3 (5-19) BUN 20 (6-20) mg/dL Creatinine 0.9 (0.5-0.9) mg/dL GFR Calculation 66.8 L (90-130) mL/min Glucose 220 H (65-115) mg/dL Calculated Osmolal ity 295 (285-295) mOsm/k g Calcium 9.7 (8.5-10.5) mg/dL Total Bilirubin 0.2 (0.15-1.2) mg/dL AST 22 (0-32) U/L ALT 23 (0-33) U/L Alkaline Phosphata se 66 (35-105) IU/L Total Protein 7.4 (6.6-8.7) g/dL Albumin 3.8 (3.5-5.2) g/dL Globulin 3.6 (1.3-4.6) g/dL Lipase 109 H (13-60) U/L H. pylori IgG Anti body (Negative) 05/30/20 Range/Units 19:33 WBC (4.0-10.0) 10^3/ uL RBC (4.1-5.3) 10^6/u L Hgb (11.5-15.3) g/dL Hct (37.0-47.0) % MCV (81-99) fL MCH (28.0-34.0) pg MCHC (30.0-36.0) g/dL RDW (12.1-15.1) % Plt Count (130-400) 10^3/c mm MPV (7.4-10.4) fL Neut % (Auto) % Lymph % (Auto) % Mcminn % (Auto) % Eos % (Auto) % Baso % (Auto) % Neut # (Auto) (1.8-7.7) 10^3/u L Lymph # (Auto) (0.8-4.8) 10^3/u L Mcminn # (Auto) (0.2-0.9) 10^3/u L Eos # (Auto) (0.0-0.8) 10^3/u L Baso # (Auto) (0.0-0.1) 10^3/u L Nucleated RBC % (a uto) % Nucleated RBCs # /100WBC PT (10.5-13.3) SECO NDS INR (0.8-1.2) Sodium (136-145) mmol/L Potassium (3.5-5.1) mmol/L Chloride (98-107) mmol/L Carbon Dioxide (22-29) mmol/L Anion Gap (5-19) BUN (6-20) mg/dL Creatinine (0.5-0.9) mg/dL GFR Calculation (90-130) mL/min Glucose (65-115) mg/dL Calculated Osmolal ity (285-295) mOsm/k g Calcium (8.5-10.5) mg/dL Total Bilirubin (0.15-1.2) mg/dL AST (0-32) U/L ALT (0-33) U/L Alkaline Phosphata se (35-105) IU/L Total Protein (6.6-8.7) g/dL Albumin (3.5-5.2) g/dL Globulin (1.3-4.6) g/dL Lipase (13-60) U/L H. pylori IgG Anti body Negative (Negative) Imaging Data ^: CT Abd/Pel: Radiologist's impression: [address] [address] [address] Scan Report Signed Patient: Nayla Trujillo Unit #: [id number] : 1970 Age/Sex: 50 / F ADM Date: 05/30/20 Loc: ER Room/Bed: Attending Dr: Ordering Provider/Ordering MD: Juanita Chapa DO Date of Service: 05/30/20 Procedure(s): CT abdomen pelvis w con* [id number] Accession Number(s): [id number] Report Number: [id number] PROCEDURE INFORMATION: Exam: CT Abdomen And Pelvis With Contrast Exam date and time: 05/30/2020 9:01 PM Age: 50 years old Clinical indication: Other: Black stools; Abdominal pain; Prior surgery; Surgery type: Gb TECHNIQUE: Imaging protocol: Computed tomography of the abdomen and pelvis with intravenous contrast. Radiation optimization: All CT scans at this facility use at least one of these dose optimization techniques: automated exposure control; mA and/or kV adjustment per patient size (includes targeted exams where dose is matched to clinical indication); or iterative reconstruction. Contrast material: OMNI 300; Contrast volume: 95 ml; Contrast route: INTRAVENOUS (IV); COMPARISON: CT abdomen pelvis w con* [id number] 05/03/2020 10:17 AM RADIATION DOSE METRICS: Total DLP (mGy-cm): 1560.97 FINDINGS: Liver: There is no focal abnormality within the liver. Gallbladder and bile ducts: There has been a cholecystectomy. Pancreas: The pancreas is normal. Spleen: The spleen is normal. Adrenals: The adrenal glands are normal. Kidneys and ureters: The kidneys are normal. Stomach and bowel: There is no evidence of colitis/diverticulitis. Appendix: No evidence of appendicitis. Intraperitoneal space: Unremarkable. No free air. No significant fluid collection. Vasculature: Unremarkable. No abdominal aortic aneurysm. Lymph nodes: Unremarkable. No enlarged lymph nodes. Bladder: Unremarkable as visualized. Reproductive: There has been a hysterectomy. Bones/joints: Unremarkable. No acute fracture. Soft tissues: Unremarkable. CT/CT abdomen pelvis w con* [id number] IMPRESSION: No acute finding. Radiation Dose CTDIVOL = (mGy): DLP = 1560.97 (mGy-cm) Dictated By: Darnell Falk Signed By: Darnell Falk Signed Date/Time: 05/30/202230 DD/ 28 Discharge Plan Discharge Patient Disposition: Home, Self-Care Clinical Impression: Melena Abdominal pain Qualifiers: Abdominal location: generalized Qualified Code(s): R10.84 - Generalized abdominal pain Condition: Stable Prescriptions: New Protonix 40 mg tablet,delayed release (DR/EC) 40 mg PO BID 14 Days Qty: 28 RF: 0 No Action naproxen 500 mg PO BID RF: 0 ondansetron HCl [Zofran] 4 mg tablet 4 mg PO Q6H RF: 0 hydroxyzine HCl 25 mg tablet 25 mg PO BID PRN (Reason: Anxiety) RF: 0 docusate sodium 100 mg capsule 100 mg PO PRN RF: 0 levothyroxine 100 mcg capsule 100 mcg PO DAILY RF: 0 citalopram [Celexa] 20 mg tablet 20 mg PO DAILY Qty: 30 RF: 2 buspirone 15 mg tablet 15 mg PO TID Qty: 90 RF: 2 omeprazole 20 mg capsule,delayed release(DR/EC) 20 mg PO DAILY 14 Days Qty: 14 RF: 0 (DME) lancets [Accu-Chek Softclix Lancets] Misc See Rx Instructions .ROUTE .MEDSUPPLY Qty: 50 RF: 0 (DME) Accu-Chek Leeann Plus test strp Strip See Rx Instructions .ROUTE .MEDSUPPLY Qty: 100 RF: 0 (DME) blood-glucose meter [Accu-Chek Leeann Plus Meter] Misc See Rx Instructions .ROUTE .MEDSUPPLY Qty: 1 RF: 0 (DME) GLUCOMETER Qty: 1 RF: 0 (DME) lancets [Accu-Chek Fastclix Lancet Drum] Misc See Rx Instructions .ROUTE .MEDSUPPLY Qty: 50 RF: 0 (DME) lancing device with lancets [Accu-Chek Soft Dev Lancets] Kit See Rx Instructions .ROUTE .MEDSUPPLY Qty: 100 RF: 2 Victoza 3-Solitario 0.6 mg/0.1 mL (18 mg/3 mL) pen injector See Rx Instructions SUBCUT .COMPLEX Qty: 9 RF: 0 (DME) pen needle, diabetic [BD Ultra-Fine Short Pen Needle] 31 gauge x 5/16 needle See Rx Instructions .ROUTE .MEDSUPPLY Qty: 100 RF: 2 topiramate 50 mg capsule,extended release 24hr 50 mg PO BID Qty: 60 RF: 5 indapamide 2.5 mg tablet 2.5 mg PO QAM Qty: 30 RF: 5 simvastatin 20 mg tablet 20 mg PO DAILY Qty: 30 RF: 5 amlodipine [Norvasc] 5 mg tablet 5 mg PO DAILY Qty: 30 RF: 5 losartan 50 mg tablet 50 mg PO DAILY Qty: 30 RF: 2 liothyronine 5 mcg tablet 5 mcg PO DAILY RF: 0 paroxetine HCl 20 mg tablet 20 mg PO DAILY RF: 0 cholecalciferol (vitamin D3) 1,250 mcg (50,000 unit) capsule 50,000 unit PO Q7D RF: 0 montelukast [Singulair] 10 mg tablet 10 mg PO DAILY RF: 0 Discharge Orders: Discharge Order (Routine); Ordered 05/30/20 Ordered By: Juanita Chapa Referrals: John Fulton MD [Physician] - 1-3 days (Call Dr. Fulton's office first thing in the morning as he has assured me he will fit you into the clinic tomorrow to recheck you and talk about a possible EGD.) Che Day DO [Primary Care Provider] - Discharge Diet: Advance as tolerated and Clear Liquid Discharge Activity: Increase activity as tolerated Patient Instructions: Abdominal Pain (ED) Activity Restrictions/Additional Instructions: Please return to the ER immediately for any of the signs or symptoms listed on your discharge instruction sheets, worsening/changing of your symptoms, you are not getting better as quickly as expected, or for ANY other cause or concerns. Stop the omeprazole that you are taking and take the Protonix that I have prescribed. Be certain to call Dr. Fulton's office first thing in the morning as he has assured me that he will fit you into the clinic to recheck you and talk about further work-up of your abdominal pain. Return to the ER for return of black stools, bright red blood in her stool, or for any other cause for concern. 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
[2020-05-30 22:09] LABS: H. Pylori IgG Antibody Negative (Negative)
[2020-05-30] MEDS: iohexol 300 mg/mL 100 mL Btl IV (22:09)
[2020-05-30 23:04] VITALS: RESP 16
== END 2020-05-30 23:06 | disposition home or self-care (01) ==
PROVIDERS: Emergency Medicine; Emergency Provider Emergency Medicine; PCP Family Medicine
DX: R10.84 Generalized abdominal pain (principal); K92.1 Melena; Z87.891 Personal history of nicotine dependence; E11.9 Type 2 diabetes mellitus without complications; E78.5 Hyperlipidemia, unspecified; I10 Essential (primary) hypertension
CPT/HCPCS: 12345; 36415; 74177; 80053; 83690; 85025; 85610; 86677; 99283; Q9967

== ENCOUNTER 2020-06-07 05:41 | Day surgery (SDC) | payer MEDICARE, MEDICAID, SELFPAY ==
[2020-06-07 06:05] VITALS: BMI 59.7
[2020-06-07 06:13] VITALS: BP 179/96; PULSE 68; RESP 18; TEMP 36.1; O2SAT 98
--- NOTE | 2020-06-07 06:15 | W.PM.OPSUD ---
Surgery/Procedure H&P Update DATE OF PROCEDURE: June 07, 2020 DATE H&P PERFORMED: 05/31/20 H&P UPDATE INFORMATION: I have reviewed H&P completed within last 30 days, I have examined patient prior to procedure and No changes to prior documentation PREOP DIAGNOSIS: Change in bowel habits and melena PRIMARY INDICATION FOR PROCEDURE: The same PLANNED PROCEDURE: Operation Date: 06/07/20 07:00 Proposed Procedures p Colonoscopy 89259 K92.1(Not Applicable) - John Fulton MD
[2020-06-07] MEDS: sodium chloride 0.9% 1,000 ML 30 ML IV (06:30)
--- NOTE | 2020-06-07 06:40 | ANES.PREANE2 ---
Pre-Anesthetic Assessment Pre-Anesthetic Assessment: Height/Weight: Height 1.68 m Weight 167.829 kg Temp Pulse Resp BP Pulse Ox 97.0 F L 68 18 179/96 98 06/07/20 06:13 06/07/20 06:13 06/07/20 06:13 06/07/20 06:13 06/07/20 06:13 Preop Diagnosis: Change in bowel habits and melena Proposed Procedure: Operation Date: 06/07/20 07:00 Proposed Procedures p Colonoscopy 06895 K92.1(Not Applicable) - John Fulton MD Familial anesthetic complications: None Last intake: Intake Last Liquid Date 06/06/20 Last Liquid Time 22:00 Last Solid Date 06/05/20 Social: Social History: No alcohol and No tobacco Exam: Pre-Anes Outpt Exam: alert, oriented x 3, clear to auscultation bilaterally and regular rate & rhythm Airway: Cervical ROM: WNL MP: 4 Dentition: Chipped Additional comments: Laqrge neck circumference Pulmonary: Pulmonary: Sleep apnea (Doesn't wear her cpap) and None reported CV/HEM: CV/HEM: HTN GI: GI: GERD Metabolic: Metabolic: DM, Morbid obesity and Thyroid Comments: super morbid obesity Neuropsych: Neuropsych: Seizure (At age 4) Anesthetic Plan: ASA status: 3 Anesthesia: MAC Risk of > 500 ml blood loss (7ml/kg in children): No Meds/Allergies Current Medications: Current Medications Generic Name Dose Route Start Last Admin Trade Name Freq PRN Reason Stop Dose Admin Sodium Chloride 1,000 mls @ 30 ml s/hr 06/07/20 06:00 06/07/20 06:30 Sodium Chloride 0.9% IV 30 mls/hr .Q24H MALIKA Administration PFSH Anesthesia PFSH: Medical History (Updated 06/07/20 @ 00:00 by ) Acute serous otitis media of left ear Anxiety Borderline intellectual functioning Controlled type 2 diabetes mellitus, without long-term current use of insulin Depression Dyslipidemia Enrolled in chronic care management Generalized anxiety disorder GERD (gastroesophageal reflux disease) Hypertension Hypothyroidism Obesity BHARAT (obstructive sleep apnea) Seizure disorder Tinnitus Surgical History History of colonoscopy with polypectomy (~09/2018) History of esophagogastroduodenoscopy (EGD) (~09/2018) History of hysterectomy with oophorectomy History of laparoscopic cholecystectomy Family History Grandmother Cancer Father Lung disease Diabetes Denies family history of Anesthesia complication Bleeding disorder Social History Smoking and tobacco status: never smoked Quit status (tobacco): has quit using tobacco Second hand smoke exposure: No Smoking risk assessment/counseling performed?: No Alcohol intake: never Desire information about alcohol rehabilitation?: No Counseling given: No Desire information about substance/drug rehabilitation?: No Counseling given: No Adopted: No Caregiver/support person: Yes Lives independently: Yes Household members: family Housing: House Marital status: Single Highest education level completed: High School Graduate service: No Current occupational status: employed 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
[2020-06-07 06:43] LABS: Glucose Point of Care 135 mg/dL (70-110)
[2020-06-07 07:55] VITALS: BP 120/72; PULSE 64; RESP 16; TEMP 36.2; O2SAT 97
[2020-06-07 08:15] VITALS: BP 135/98; PULSE 63; RESP 18; O2SAT 96
--- NOTE | 2020-06-07 09:31 | ANE.PACU2 ---
Inpatient post-anesthesia follow up: Airway intact: Yes Vital signs: Temperature 97.1 F Pulse Rate 63 Respiratory Rate 18 Blood Pressure 135/98 Pulse Oximetry 96 Oxygen Delivery Me thod Room Air Oxygen Flow Rate Fraction of Inspir ed Oxygen Hydration adequate: Yes Nausea and vomiting: No Pain level: 1 Mental status: Baseline
[2020-06-08 06:01] LABS: H. Pylori / CLO Test Negative
== END 2020-06-07 08:30 | disposition home or self-care (01) ==
PROVIDERS: Surgery; PCP Family Medicine; Visit Provider Surgery
PROC: 0DJD8ZZ Inspection of Lower Intestinal Tract, Via Natural or Artificial Opening Endoscopic (ICD-10-PCS; CPT 45378; principal; 2020-06-07 07:00)
PROC: 0DJ08ZZ Inspection of Upper Intestinal Tract, Via Natural or Artificial Opening Endoscopic (ICD-10-PCS; CPT 43235; 2020-06-07 07:00)
DX: K92.1 Melena (principal); K21.9 Gastro-esophageal reflux disease without esophagitis; K29.70 Gastritis, unspecified, without bleeding; D12.4 Benign neoplasm of descending colon; I10 Essential (primary) hypertension; E11.9 Type 2 diabetes mellitus without complications; Z68.43 Body mass index [BMI] 50.0-59.9, adult; Z91.19 Patient's noncompliance with other medical treatment and regimen; G47.33 Obstructive sleep apnea (adult) (pediatric); E78.5 Hyperlipidemia, unspecified; F41.9 Anxiety disorder, unspecified; F32.9 Major depressive disorder, single episode, unspecified; E03.9 Hypothyroidism, unspecified
CPT/HCPCS: 12345; 36416; 43235; 45385; 82962; 87077; 88305; J2704; J7030

== ENCOUNTER 2020-06-18 16:43 | Emergency (ER) | payer MEDICARE, MEDICAID, SELFPAY ==
[2020-06-18 17:08] VITALS: BP 144/84; PULSE 91; RESP 14; TEMP 36.9; O2SAT 95; BMI 60.8
--- NOTE | 2020-06-18 19:24 | W.ED.GENADLT ---
HPI - General Adult General: Chief complaint: General Medical Stated complaint: BS PROBLEMS Time Seen by Provider: 06/18/20 19:15 History of Present Illness: HPI narrative: States that her blood sugar got down to 150 she did not feel good with that she had a headache denies any other problems complaint: Headache Onset (ago): hour(s) Severity: mild Associated symptoms: Reports no associated symptoms and headache(s); Deny chest pain, dyspnea, nausea, rash or vomiting Review of Systems Narrative: Blood sugar lower than what she used to did have a little bit of diaphoresis without Const: Denies: fever(s), chills or body aches Eyes: Denies: change in vision or blurry vision ENMT: Denies: throat pain or nasal congestion Card: Denies: chest pain or dyspnea on exertion Resp: Denies: dyspnea, productive cough or non-productive cough GI: Denies: abdominal pain, nausea or vomiting Musc: Denies: extremity pain Skin/Breast: Denies: rash Neuro: Reports: headache(s) Psych: Denies: anxiety or depression Red/Lymph: Denies: easy bruising PFSH ED PFSH: Medical History (Updated 06/13/20 @ 10:51 by Che Day DO) Acute serous otitis media of left ear Anxiety Borderline intellectual functioning Controlled type 2 diabetes mellitus, without long-term current use of insulin Depression Dyslipidemia Enrolled in chronic care management Generalized anxiety disorder GERD (gastroesophageal reflux disease) Hypertension Hypothyroidism Obesity BHARAT (obstructive sleep apnea) Seizure disorder Tinnitus Surgical History History of colonoscopy with polypectomy (~09/2018) History of esophagogastroduodenoscopy (EGD) (~09/2018) History of hysterectomy with oophorectomy History of laparoscopic cholecystectomy Family History Grandmother Cancer Father Lung disease Diabetes Denies family history of Anesthesia complication Bleeding disorder Social History Smoking and tobacco status: never smoked Quit status (tobacco): has quit using tobacco Second hand smoke exposure: No Smoking risk assessment/counseling performed?: No Alcohol intake: never Desire information about alcohol rehabilitation?: No Counseling given: No Desire information about substance/drug rehabilitation?: No Counseling given: No Adopted: No Caregiver/support person: Yes Lives independently: Yes Household members: family Housing: House Marital status: Single Highest education level completed: High School Graduate service: No Current occupational status: employed 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 Current occupational exposures/hazards: No Pets and animals: Yes History of recent travel: No Sexually active: Yes Current gender identity: Female Ania/Restoration: None Special ania needs: No Agree to transfusion: Yes Financial difficulty paying for basics: Not Very Hard Female Reproductive History: Date of last menstrual period: 03/19/20 Physical Exam Narrative: EXAM NARRATIVE: Morbidly obese Const: COMMON NORMALS: no acute distress, average body habitus and patient oriented x3 HENMT: COMMON NORMALS: normocephalic HEAD & SCALP: normal to inspection and normocephalic FACE & SINUS: normal facial exam Eye: COMMON NORMALS: conjunctivae normal GENERAL EYE: appearance normal, both eyes and all related structures CONJUNCTIVA: Yes conjunctivae normal Neck/C-Spine: COMMON NORMALS: no JVD Chest: COMMONS NORMALS: normal inspection of the chest Resp: COMMON NORMALS: normal respiratory effort and clear to auscultation bilaterally AUSCULTATION: clear to auscultation bilaterally Cardio: COMMON NORMALS: no JVD, regular rate and regular rhythm RATE: regular rate RHYTHM: regular rhythm GI: COMMON NORMALS: Normal to inspection, nondistended, normoactive bowel sounds present Extremity: COMMON NORMALS: normal to inspection and full ROM Neuro: COMMON NORMALS: patient oriented x3 Course Vital Signs: Vital signs: Vital Signs Temperature 98.5 F 06/18/20 17:08 Pulse Rate 91 06/18/20 17:08 Respiratory Rate 14 06/18/20 17:08 Blood Pressure 144/84 06/18/20 17:08 Pulse Oximetry 95 06/18/20 17:08 Discharge Plan Discharge Condition: Good Prescriptions: No Action naproxen 500 mg PO BID RF: 0 Hold Instructions: Resume on 06/13/20. montelukast [Singulair] 10 mg tablet 10 mg PO DAILY Qty: 90 RF: 1 pantoprazole [Protonix] 40 mg tablet,delayed release (DR/EC) 40 mg PO BID Qty: 180 RF: 0 hydroxyzine HCl 25 mg tablet 25 mg PO BID PRN (Reason: Anxiety) RF: 0 docusate sodium 100 mg capsule 100 mg PO PRN RF: 0 levothyroxine 100 mcg capsule 100 mcg PO DAILY RF: 0 citalopram [Celexa] 20 mg tablet 20 mg PO DAILY Qty: 30 RF: 2 buspirone 15 mg tablet 15 mg PO TID Qty: 90 RF: 2 lactulose 10 gram/15 mL solution 10 gm PO BID 7 Days Qty: 210 RF: 0 (DME) lancets [Accu-Chek Softclix Lancets] Misc See Rx Instructions .ROUTE .MEDSUPPLY Qty: 50 RF: 0 (DME) Accu-Chek Leeann Plus test strp Strip See Rx Instructions .ROUTE .MEDSUPPLY Qty: 100 RF: 0 (DME) blood-glucose meter [Accu-Chek Leeann Plus Meter] Misc See Rx Instructions .ROUTE .MEDSUPPLY Qty: 1 RF: 0 (DME) GLUCOMETER Qty: 1 RF: 0 (DME) lancets [Accu-Chek Fastclix Lancet Drum] Misc See Rx Instructions .ROUTE .MEDSUPPLY Qty: 50 RF: 0 (DME) lancing device with lancets [Accu-Chek Soft Dev Lancets] Kit See Rx Instructions .ROUTE .MEDSUPPLY Qty: 100 RF: 2 Victoza 3-Solitario 0.6 mg/0.1 mL (18 mg/3 mL) pen injector See Rx Instructions SUBCUT .COMPLEX Qty: 9 RF: 0 (DME) pen needle, diabetic [BD Ultra-Fine Short Pen Needle] 31 gauge x 5/16 needle See Rx Instructions .ROUTE .MEDSUPPLY Qty: 100 RF: 2 topiramate 50 mg capsule,extended release 24hr 50 mg PO BID Qty: 60 RF: 5 indapamide 2.5 mg tablet 2.5 mg PO QAM Qty: 30 RF: 5 simvastatin 20 mg tablet 20 mg PO DAILY Qty: 30 RF: 5 amlodipine [Norvasc] 5 mg tablet 5 mg PO DAILY Qty: 30 RF: 5 losartan 50 mg tablet 50 mg PO DAILY Qty: 30 RF: 2 liothyronine 5 mcg tablet 5 mcg PO DAILY RF: 0 paroxetine HCl 20 mg tablet 20 mg PO DAILY RF: 0 cholecalciferol (vitamin D3) 1,250 mcg (50,000 unit) capsule 50,000 unit PO Q7D RF: 0 Carafate 1 gram tablet 1 gm PO TID 84 Days Qty: 252 RF: 0 Coding Level of Care Code ED Crane Chaser for Frankyg Sara
[2020-06-18] MEDS: ketorolac 10 mg Tablet PO (19:39)
[2020-06-18 19:43] LABS: Glucose Point of Care 176 mg/dL (70-110)
[2020-06-18 19:49] VITALS: BP 141/91; PULSE 89; RESP 16; O2SAT 98
[2020-06-18 19:50] VITALS: BP 136/87; PULSE 87; RESP 16; O2SAT 98
== END 2020-06-18 19:55 | disposition home or self-care (01) ==
PROVIDERS: Emergency Provider Nurse Practitioner Family; PCP Family Medicine
DX: E11.649 Type 2 diabetes mellitus with hypoglycemia without coma (principal); Z87.891 Personal history of nicotine dependence; E78.5 Hyperlipidemia, unspecified; I10 Essential (primary) hypertension
CPT/HCPCS: 12345; 36416; 82962; 99281; 99283

== ENCOUNTER 2020-07-06 02:08 | Emergency (ER) | payer MEDICARE, MEDICAID, SELFPAY ==
[2020-07-06 02:11] VITALS: BP 126/79; PULSE 76; RESP 18; TEMP 36.7; O2SAT 98; BMI 59.7
--- NOTE | 2020-07-06 02:17 | W.ED.HA ---
HPI - Headache General: Chief Complaint: Headache Stated Complaint: migraine/dizzy Time Seen by Provider: 07/06/20 02:17 History of Present Illness: HPI Narrative: Patient is a 50-year-old female comes to the ED with a migraine. Patient says that she has a past medical history of migraines. Migraine started today. She says this migraine is similar to her past migraines but this time she is having some dizziness and lightheadedness with a migraine. She rates the migraine a 10 out of 10 and describes pain is all throughout her head. Endorses photophobia. Associated symptoms: Reports photophobia; Deny chest pain, fever(s), nausea, rash or vomiting Review of Systems Const: Denies: fever(s), chills or fatigue Eyes: Reports: photophobia; Denies: change in vision or eye discomfort ENMT: Denies: throat pain, odynophagia, nasal discharge or nasal congestion Card: Denies: chest pain, palpitations, edema, swelling of feet/ankles, dyspnea on exertion or orthopnea Resp: Denies: dyspnea, productive cough or non-productive cough GI: Denies: abdominal pain, nausea, vomiting, diarrhea, constipation or hematochezia : Denies: flank pain, dysuria or hematuria Musc: Denies: neck pain, back pain or extremity swelling Skin/Breast: Denies: rash or new lesions Neuro: Reports: headache(s) and dizziness; Denies: numbness in extremities or weakness in extremities PFS ED PFSH: Medical History Acute serous otitis media of left ear Anxiety Borderline intellectual functioning Controlled type 2 diabetes mellitus, without long-term current use of insulin Depression Dyslipidemia Enrolled in chronic care management Generalized anxiety disorder GERD (gastroesophageal reflux disease) Hypertension Hypothyroidism Obesity BHARAT (obstructive sleep apnea) Seizure disorder Tinnitus Surgical History History of colonoscopy with polypectomy (~09/2018) History of esophagogastroduodenoscopy (EGD) (~09/2018) History of hysterectomy with oophorectomy History of laparoscopic cholecystectomy Family History Grandmother Cancer Father Lung disease Diabetes Denies family history of Anesthesia complication Bleeding disorder Social History Smoking and tobacco status: never smoked Quit status (tobacco): has quit using tobacco Second hand smoke exposure: No Smoking risk assessment/counseling performed?: No Alcohol intake: never Desire information about alcohol rehabilitation?: No Counseling given: No Desire information about substance/drug rehabilitation?: No Counseling given: No Adopted: No Caregiver/support person: Yes Lives independently: Yes Housing: House Marital status: Single Highest education level completed: High School Graduate service: No Current occupational status: employed 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 Current occupational exposures/hazards: No Pets and animals: Yes History of recent travel: No Sexually active: Yes Ania/Gnosticist: None Special ania needs: No Agree to transfusion: Yes Financial difficulty paying for basics: Not Very Hard Female Reproductive History: Date of last menstrual period: 03/19/20 Physical Exam Const: COMMON NORMALS: no acute distress, patient oriented x3 and alert GENERAL APPEARANCE: cooperative and comfortable NUTRITIONAL APPEARANCE: obese morbidly obese HENMT: COMMON NORMALS: normocephalic HEAD & SCALP: normocephalic MOUTH: Normal oral and palatal mucosa present THROAT: posterior oropharynx normal and uvula midline Eye: COMMON NORMALS: Equal, round and reactive pupils present, EOMs intact bilaterally, conjunctivae normal and normal visual hall by confrontation CONJUNCTIVA: Yes conjunctivae normal PUPIL: Yes Equal, round and reactive pupils present DIRECT OPHTHALMOSCOPY: Yes photophobia Neck/C-Spine: COMMON NORMALS: supple GENERAL: Yes normal visual inspection Resp: COMMON NORMALS: normal respiratory effort, No retractions, No use of accessory muscles and clear to auscultation bilaterally AUSCULTATION: clear to auscultation bilaterally Cardio: COMMON NORMALS: regular rate, regular rhythm, S1 normal heart sound present, S2 normal heart sound present, No gallops present (Cardio), No clicks present (Cardio), No murmurs present (Cardio) and Peripheral pulses 2+ throughout RATE: regular rate RHYTHM: regular rhythm HEART SOUNDS: S1 normal heart sound present and S2 normal heart sound present PERIPHERAL PULSES: Peripheral pulses 2+ throughout GI: COMMON NORMALS: Normal to inspection, nondistended, normoactive bowel sounds present, Soft to palpation, non-tender and no masses INSPECTION: Yes central obesity PALPATION: Yes Soft to palpation : COMMON NORMALS: Yes no CVA tenderness BLADDER/KIDNEY EXAM: Yes no CVA tenderness Back/Pelvis: COMMON NORMALS: no CVA tenderness Extremity: COMMON NORMALS: normal to inspection Neuro: COMMON NORMALS: patient oriented x3, CN's II-XII intact bilaterally, moves all extremities, no focal motor deficits and no sensory deficits noted SENSORIUM/ORIENTATION: Yes alert SENSORY EXAM: Yes extremities (intact) MOTOR EXAM: 5/5 motor strength present throughout Skin: GENERAL SKIN EXAM: dry skin Course Reevaluation(s): Reevaluation #1: After patient received migraine meds I came in to reassess symptoms. Patient says she now rates her migraine about a 2 out of 10. She says she is ready to go home and rest. Time: 04:00 Vital Signs: Vital signs: Vital Signs Temperature 98.1 F 07/06/20 02:11 Pulse Rate 76 07/06/20 02:11 Respiratory Rate 18 07/06/20 02:11 Blood Pressure 126/79 07/06/20 02:11 Pulse Oximetry 98 07/06/20 02:11 MDM - Headache MDM Narrative: Medical decision making narrative: Patient is a 50-year-old female comes the ED with a migraine and some dizziness. Patient has a past medical history of migraines. Neuro exam was normal and no neuro deficits seen. CT of head showed no acute findings. Patient was given migraine cocktail of IV fluids, Toradol, Decadron, Benadryl and Reglan. Patient's migraine improved and she was ready for discharge. Patient was told to follow-up with PCP in 7 to 10 days for reevaluation. Return to ED precautions given. Patient understood and agreed with plan. Imaging Data^: CT Head: Attestation: I personally reviewed and interpreted this imaging study as follows: Radiologist's impression: [address] [address] [address] Scan Report Signed Patient: Nayla Trujillo Unit #: [id number] : 1970 Age/Sex: 50 / F ADM Date: 07/06/20 Loc: ER Room/Bed: Attending Dr: Ordering Provider/Ordering MD: Khris Craig Date of Service: 07/06/20 Procedure(s): CT head wo con* [id number] Accession Number(s): [id number] Report Number: [id number] PROCEDURE INFORMATION: Exam: CT Head Without Contrast Exam date and time: 07/06/2020 2:55 AM Age: 50 years old Clinical indication: Pain; Dizziness; Headache; Migraine; Aura effect not specified; Additional info: Migraine with dizziness and lightheaded TECHNIQUE: Imaging protocol: Computed tomography of the head without contrast. Radiation optimization: All CT scans at this facility use at least one of these dose optimization techniques: automated exposure control; mA and/or kV adjustment per patient size (includes targeted exams where dose is matched to clinical indication); or iterative reconstruction. COMPARISON: CT head wo con* [id number] 06/12/2015 5:06 PM RADIATION DOSE METRICS: Total DLP (mGy-cm): 859.21 FINDINGS: Brain: Normal. No hemorrhage. Unremarkable white matter. No mass effect. Ventricles: Normal. No ventriculomegaly. Bones/joints: Unremarkable. No acute fracture. Sinuses: Visualized sinuses are unremarkable. No fluid levels. Mastoid air cells: Mastoiditis is seen on the left side. Soft tissues: Unremarkable. CT/CT head wo con* [id number] IMPRESSION: No acute intracranial abnormality. No change since previous exam. Radiation Dose CTDIVOL = (mGy): DLP = 859.21 (mGy-cm) Dictated By: Jn Joaquin Signed By: Jn Joaquin Signed Date/Time: 07/06/20322 DD/ 032 Discharge Plan Discharge Patient Disposition: Home Clinical Impression: Migraine Qualifiers: Migraine type: without aura Status migrainosus presence: without status migrainosus Intractability: not intractable Qualified Code(s): G43.009 - Migraine without aura, not intractable, without status migrainosus Condition: Stable Prescriptions: No Action naproxen 500 mg PO BID RF: 0 Hold Instructions: Resume on 06/13/20. montelukast [Singulair] 10 mg tablet 10 mg PO DAILY Qty: 90 RF: 1 pantoprazole [Protonix] 40 mg tablet,delayed release (DR/EC) 40 mg PO BID Qty: 180 RF: 0 hydroxyzine HCl 25 mg tablet 25 mg PO BID PRN (Reason: Anxiety) RF: 0 docusate sodium 100 mg capsule 100 mg PO PRN RF: 0 levothyroxine 100 mcg capsule 100 mcg PO DAILY RF: 0 Victoza 2-Solitario 0.6 mg/0.1 mL (18 mg/3 mL) pen injector 1.2 mg SUBCUT DAILY RF: 0 lactulose 10 gram/15 mL solution 10 gm PO BID 7 Days Qty: 210 RF: 0 (DME) lancets [Accu-Chek Softclix Lancets] Misc See Rx Instructions .ROUTE .MEDSUPPLY Qty: 50 RF: 0 (DME) blood-glucose meter [Accu-Chek Leeann Plus Meter] Misc See Rx Instructions .ROUTE .MEDSUPPLY Qty: 1 RF: 0 (DME) GLUCOMETER Qty: 1 RF: 0 (DME) lancets [Accu-Chek Fastclix Lancet Drum] Misc See Rx Instructions .ROUTE .MEDSUPPLY Qty: 50 RF: 0 (DME) lancing device with lancets [Accu-Chek Soft Dev Lancets] Kit See Rx Instructions .ROUTE .MEDSUPPLY Qty: 100 RF: 2 (DME) pen needle, diabetic [BD Ultra-Fine Short Pen Needle] 31 gauge x 5/16 needle See Rx Instructions .ROUTE .MEDSUPPLY Qty: 100 RF: 2 indapamide 2.5 mg tablet 2.5 mg PO QAM Qty: 30 RF: 5 simvastatin 20 mg tablet 20 mg PO DAILY Qty: 30 RF: 5 amlodipine [Norvasc] 5 mg tablet 5 mg PO DAILY Qty: 30 RF: 5 losartan 50 mg tablet 50 mg PO DAILY Qty: 30 RF: 2 Victoza 3-Solitario 0.6 mg/0.1 mL (18 mg/3 mL) pen injector See Rx Instructions SUBCUT .COMPLEX Qty: 9 RF: 0 topiramate 50 mg capsule,extended release 24hr 50 mg PO BID Qty: 60 RF: 5 buspirone 15 mg tablet 15 mg PO TID Qty: 90 RF: 2 citalopram [Celexa] 20 mg tablet 20 mg PO DAILY Qty: 30 RF: 2 (DME) Accu-Chek Leeann Plus test strp Strip See Rx Instructions .ROUTE .MEDSUPPLY Qty: 100 RF: 1 liothyronine 5 mcg tablet 5 mcg PO DAILY RF: 0 paroxetine HCl 20 mg tablet 20 mg PO DAILY RF: 0 cholecalciferol (vitamin D3) 1,250 mcg (50,000 unit) capsule 50,000 unit PO Q7D RF: 0 Carafate 1 gram tablet 1 gm PO TID 84 Days Qty: 252 RF: 0 Discharge Orders: Discharge Order (Routine); Ordered 07/06/20 Ordered By: Khris Craig Referrals: Che Day DO [Primary Care Provider] - Discharge Diet: Regular Discharge Activity: Increase activity as tolerated Patient Instructions: Headache - Migraine (Adult) Activity Restrictions/Additional Instructions: Follow-up with medical provider as directed in 7-10 days. Take Tylenol or ibuprofen for any reoccurring headaches. Continue taking all home medications as previously prescribed. Return to the ER or your medical provider if condition worsens. Please read and understand discharge instructions. If any questions, please ask. Coding Level of Care Code ED Butcher'S Assistant for Robyn Fwamalia Exam Comprehensive
--- NOTE | 2020-07-06 02:26 | CTR_ITS ---
PROCEDURE INFORMATION: Exam: CT Head Without Contrast Exam date and time: 07/06/2020 2:55 AM Age: 50 years old Clinical indication: Pain; Dizziness; Headache; Migraine; Aura effect not specified; Additional info: Migraine with dizziness and lightheaded TECHNIQUE: Imaging protocol: Computed tomography of the head without contrast. Radiation optimization: All CT scans at this facility use at least one of these dose optimization techniques: automated exposure control; mA and/or kV adjustment per patient size (includes targeted exams where dose is matched to clinical indication); or iterative reconstruction. COMPARISON: CT head wo con* [id number] 06/12/2015 5:06 PM RADIATION DOSE METRICS: Total DLP (mGy-cm): 859.21 FINDINGS: Brain: Normal. No hemorrhage. Unremarkable white matter. No mass effect. Ventricles: Normal. No ventriculomegaly. Bones/joints: Unremarkable. No acute fracture. Sinuses: Visualized sinuses are unremarkable. No fluid levels. Mastoid air cells: Mastoiditis is seen on the left side. Soft tissues: Unremarkable. CT/CT head wo con* [id number] IMPRESSION: No acute intracranial abnormality. No change since previous exam. Radiation Dose CTDIVOL = (mGy): DLP = 859.21 (mGy-cm)
[2020-07-06] MEDS: sodium chloride 0.9% 500 ML IV (03:30)
[2020-07-06] MEDS: diphenhydrAMINE 50 mg/mL SDV 1mL 25 MG IVP (03:33)
[2020-07-06] MEDS: metoclopramide 5 mg/mL SDV 2 mL 10 MG IVP (03:35)
[2020-07-06] MEDS: ketorolac 30 mg/mL INJ IVP (03:40)
[2020-07-06] MEDS: dexamethasone 10 mg/mL INJ IVP (03:45)
[2020-07-06 04:53] VITALS: BP 120/79; PULSE 74; RESP 16; O2SAT 96
== END 2020-07-06 05:04 | disposition home or self-care (01) ==
PROVIDERS: Emergency Provider Physician Assistant; PCP Family Medicine
DX: G43.009 Migraine without aura, not intractable, without status migrainosus (principal); E11.9 Type 2 diabetes mellitus without complications; E78.5 Hyperlipidemia, unspecified; I10 Essential (primary) hypertension; Z87.891 Personal history of nicotine dependence
CPT/HCPCS: 12345; 70450; 96361; 96374; 96375; 99282; 99283; J1100; J1200; J1885; J2765; J7040

== ENCOUNTER → 2020-07-07 08:04 | Outpatient (BNVA) | payer MEDICARE, MEDICAID, SELFPAY | PROVIDERS: PCP Family Medicine; Visit Provider Nurse Practitioner | DX: R41.83 Borderline intellectual functioning (principal); F41.1 Generalized anxiety disorder | CPT/HCPCS: 99213 ==

== ENCOUNTER 2020-07-11 17:20 | Outpatient (CLI) | payer MEDICARE, MEDICAID, SELFPAY ==
--- NOTE | 2020-07-11 17:45 | XRR_ITS ---
PROCEDURE INFORMATION: Exam: XR Cervical Spine, 2 or 3 Views Exam date and time: 07/11/2020 6:16 PM Age: 50 years old Clinical indication: Patient HX: C/O neck pain starting 1 month ago. Fatty tumor? -lump on neck. Neck stiffness, headache and limited rom TECHNIQUE: Imaging protocol: XR of the cervical spine, 2 or 3 views. COMPARISON: CR Neck Soft Tissue [id number] 09/23/2016 3:04 AM FINDINGS: Vertebrae: Anatomic alignment. Mild degenerative change. Soft tissues: Partial obscuration of the C6 and C7 vertebrae a lateral view by overlying soft tissues. Diffuse soft tissue enlargement. XR/XR cervical spine 3V* [id number] IMPRESSION: 1. Partial obscuration of the C6 and C7 vertebrae a lateral view by overlying soft tissues. 2. Mild degenerative change.
== END 2020-07-11 17:21 | disposition home or self-care (01) ==
LOC: RAD 17:23
PROVIDERS: PCP Family Medicine; Visit Provider Nurse Practitioner
DX: M54.2 Cervicalgia (principal)
CPT/HCPCS: 72040

== ENCOUNTER 2020-07-12 21:39 | Emergency (ER) | payer MEDICARE, MEDICAID, SELFPAY ==
[2020-07-12 21:44] VITALS: BP 139/83; PULSE 97; RESP 18; TEMP 36.7; O2SAT 97; BMI 60.2
--- NOTE | 2020-07-12 21:54 | ED_ITS ---
HPI - General Adult General: Chief complaint: General Medical Stated complaint: back of neck/ lump/ swelling Time Seen by Provider: 07/12/20 21:54 History of Present Illness: HPI narrative: Patient is a 50-year-old female comes to the ED with neck pain and lump on neck. Patient is morbidly obese with a BMI of 60. Patient has a past medical history of hypothyroidism, migraines, type 2 diabetes, hypertension, dyslipidemia and generalized anxiety disorder. Patient says for the past couple weeks she has noticed this lump on the back of her neck becoming more painful tender. She says the pain does not radiate anywhere and stays right there in the neck. She complains that certain neck movements bother her as well. She currently rates the pain a 10 out of 10. Patient was seen at [facility] urgent care on July 11 for same complaint and was diagnosed with cervical neck muscle strain. A cervical x-ray was performed at urgent care on 07/11 with the results showed chronic degenerative changes but no acute findings. Patient was sent home from urgent care on July 11 with a prescription for muscle relaxer. She is scheduled appointment with PCP next week. Associated symptoms: Deny chest pain, dyspnea, headache(s), nausea, rash, palpitations or vomiting Review of Systems Const: Denies: fever(s), chills or fatigue Eyes: Denies: change in vision or eye discomfort ENMT: Denies: throat pain, odynophagia, nasal discharge or nasal congestion Card: Denies: chest pain, palpitations, edema, swelling of feet/ankles, dyspnea on exertion or orthopnea Resp: Denies: dyspnea, productive cough or non-productive cough GI: Denies: abdominal pain, nausea, vomiting, diarrhea, constipation or hematochezia : Denies: flank pain, dysuria or hematuria Musc: Reports: neck pain; Denies: back pain or extremity swelling Skin/Breast: Denies: rash or new lesions Neuro: Denies: headache(s), numbness in extremities or weakness in extremities PFS ED PFSH: Medical History Acute serous otitis media of left ear Anxiety Borderline intellectual functioning Controlled type 2 diabetes mellitus, without long-term current use of insulin Depression Dyslipidemia Enrolled in chronic care management Generalized anxiety disorder GERD (gastroesophageal reflux disease) Hypertension Hypothyroidism Obesity BHARAT (obstructive sleep apnea) Seizure disorder Tinnitus Surgical History History of colonoscopy with polypectomy (~09/2018) History of esophagogastroduodenoscopy (EGD) (~09/2018) History of hysterectomy with oophorectomy History of laparoscopic cholecystectomy Family History Grandmother Cancer Father Lung disease Diabetes Denies family history of Anesthesia complication Bleeding disorder Social History Smoking and tobacco status: never smoked Quit status (tobacco): has quit using tobacco Second hand smoke exposure: No Smoking risk assessment/counseling performed?: No Alcohol intake: never Desire information about alcohol rehabilitation?: No Counseling given: No Desire information about substance/drug rehabilitation?: No Counseling given: No Adopted: No Caregiver/support person: Yes Lives independently: Yes Housing: House Marital status: Single Highest education level completed: High School Graduate service: No Current occupational status: employed 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 Current occupational exposures/hazards: No Pets and animals: Yes History of recent travel: No Sexually active: Yes Ania/Anabaptist: None Special ania needs: No Agree to transfusion: Yes Financial difficulty paying for basics: Not Very Hard Female Reproductive History: Date of last menstrual period: 03/19/20 Physical Exam Const: COMMON NORMALS: patient oriented x3 and alert GENERAL APPEARANCE: cooperative and comfortable NUTRITIONAL APPEARANCE: obese morbidly obese HENMT: COMMON NORMALS: normocephalic HEAD & SCALP: normocephalic MOUTH: Normal oral and palatal mucosa present THROAT: posterior oropharynx normal and uvula midline Neck/C-Spine: COMMON NORMALS: supple GENERAL: Yes normal visual inspection CERVICAL SPINE: Yes Paracervical muscle tenderness OTHER: Patient had a lump on the back neck. It had no erythema, warmth. No palpable mass or pocket of fluid. Lump appears to be most likely fat tissue. She said it was tender upon palpation. Resp: COMMON NORMALS: normal respiratory effort, No retractions, No use of accessory muscles and clear to auscultation bilaterally AUSCULTATION: clear to auscultation bilaterally Cardio: COMMON NORMALS: regular rate, regular rhythm, S1 normal heart sound present, S2 normal heart sound present, No gallops present (Cardio), No clicks present (Cardio), No murmurs present (Cardio) and Peripheral pulses 2+ throughout RATE: regular rate RHYTHM: regular rhythm HEART SOUNDS: S1 normal heart sound present and S2 normal heart sound present PERIPHERAL PULSES: Peripheral pulses 2+ throughout GI: COMMON NORMALS: Normal to inspection, nondistended, normoactive bowel soun ds present, Soft to palpation, non-tender and no masses INSPECTION: Yes central obesity PALPATION: Yes Soft to palpation : COMMON NORMALS: Yes no CVA tenderness BLADDER/KIDNEY EXAM: Yes no CVA tenderness Back/Pelvis: COMMON NORMALS: no CVA tenderness Neuro: COMMON NORMALS: patient oriented x3, CN's II-XII intact bilaterally, moves all extremities, no focal motor deficits and no sensory deficits noted SENSORIUM/ORIENTATION: Yes alert SENSORY EXAM: Yes extremities (intact) MOTOR EXAM: 5/5 motor strength present throughout Skin: COMMON NORMALS: no rashes or lesions noted GENERAL SKIN EXAM: no rashes or lesions noted and dry skin Course Reevaluation(s): Reevaluation #1: I performed a quick bedside ultrasound to look at mass on neck and it showed no solid mass or fluid collection. Time: 22:50 Vital Signs: Vital signs: Vital Signs Temperature 98.0 F 07/12/20 21:44 Pulse Rate 78 07/12/20 23:17 Respiratory Rate 20 H 07/12/20 23:17 Blood Pressure 122/64 07/12/20 23:17 Pulse Oximetry 95 07/12/20 23:17 MDM - General Adult MDM Narrative: Medical decision making narrative: Patient is a 50-year-old female who is morbidly obese with a BMI of 60 comes to the ED with neck pain. Patient was seen at urgent care yesterday July 11 and an x-ray of cervical spine was performed showed some degenerative disease. Patient also says that she has a mass or lump developing on her neck. She says that it is causing more pain on her neck. Physical exam shows some tenderness to palpation of the paracervical muscles and of the hump of the neck. hump is no palpable solid mass or fluid pocket. No erythema or warmth noted. Neck help patient is talking about appears to be fat tissue. I performed bedside ultrasound did not identify any mass or fluid pocket on neck. Patient was given a dose of Toradol and sent home with a prescription for 800 mg ibuprofen. She was told to ice and/or apply warm moist heat on neck to help with symptoms. Follow-up with PCP next week. Return to ED precautions given. Patient understood agree with plan. Discharge Plan Discharge Patient Disposition: Home Clinical Impression: Neck pain Condition: Stable Prescriptions: New ibuprofen 800 mg tablet 800 mg PO Q8H PRN (Reason: pain) Qty: 30 RF: 0 No Action naproxen 500 mg PO BID RF: 0 Hold Instructions: Resume on 06/13/20. montelukast [Singulair] 10 mg tablet 10 mg PO DAILY Qty: 90 RF: 1 pantoprazole [Protonix] 40 mg tablet,delayed release (DR/EC) 40 mg PO BID Qty: 180 RF: 0 cyclobenzaprine 10 mg tablet 10 mg PO .HS PRN (Reason: muscle spasm) Qty: 7 RF: 0 hydroxyzine HCl 25 mg tablet 25 mg PO BID PRN (Reason: Anxiety) RF: 0 docusate sodium 100 mg capsule 100 mg PO PRN RF: 0 levothyroxine 100 mcg capsule 100 mcg PO DAILY RF: 0 Victoza 2-Solitario 0.6 mg/0.1 mL (18 mg/3 mL) pen injector 1.2 mg SUBCUT DAILY RF: 0 lactulose 10 gram/15 mL solution 10 gm PO BID 7 Days Qty: 210 RF: 0 citalopram [Celexa] 20 mg tablet 20 mg PO DAILY Qty: 30 RF: 2 buspirone 15 mg tablet 15 mg PO TID Qty: 90 RF: 2 (DME) lancets [Accu-Chek Softclix Lancets] Misc See Rx Instructions .ROUTE .MEDSUPPLY Qty: 50 RF: 0 (DME) blood-glucose meter [Accu-Chek Leeann Plus Meter] Misc See Rx Instructions .ROUTE .MEDSUPPLY Qty: 1 RF: 0 (DME) GLUCOMETER Qty: 1 RF: 0 (DME) lancets [Accu-Chek Fastclix Lancet Drum] Misc See Rx Instructions .ROUTE .MEDSUPPLY Qty: 50 RF: 0 (DME) lancing device with lancets [Accu-Chek Soft Dev Lancets] Kit See Rx Instructions .ROUTE .MEDSUPPLY Qty: 100 RF: 2 (DME) pen needle, diabetic [BD Ultra-Fine Short Pen Needle] 31 gauge x 5/16 needle See Rx Instructions .ROUTE .MEDSUPPLY Qty: 100 RF: 2 indapamide 2.5 mg tablet 2.5 mg PO QAM Qty: 30 RF: 5 simvastatin 20 mg tablet 20 mg PO DAILY Qty: 30 RF: 5 amlodipine [Norvasc] 5 mg tablet 5 mg PO DAILY Qty: 30 RF: 5 losartan 50 mg tablet 50 mg PO DAILY Qty: 30 RF: 2 Victoza 3-Solitario 0.6 mg/0.1 mL (18 mg/3 mL) pen injector See Rx Instructions SUBCUT .COMPLEX Qty: 9 RF: 0 (DME) Accu-Chek Leeann Plus test strp Strip See Rx Instructions .ROUTE .MEDSUPPLY Qty: 100 RF: 1 liothyronine 5 mcg tablet 5 mcg PO DAILY RF: 0 paroxetine HCl 20 mg tablet 20 mg PO DAILY RF: 0 cholecalciferol (vitamin D3) 1,250 mcg (50,000 unit) capsule 50,000 unit PO Q7D RF: 0 Carafate 1 gram tablet 1 gm PO TID 84 Days Qty: 252 RF: 0 Discharge Orders: Discharge Order (Routine); Ordered 07/12/20 Ordered By: Khris Craig Referrals: Che Day DO [Primary Care Provider] - Discharge Diet: Regular Discharge Activity: Increase activity as tolerated Patient Instructions: Cervical Strain Activity Restrictions/Additional Instructions: Follow-up with medical provider as directed at your scheduled appointment next week. Take medications as prescribed. Place warm moist heat or cold pack or neck to help with symptoms. Return to the ER or your medical provider if condition worsens. Please read and understand discharge instructions. If any questions, please ask. Discharge Date/Time: 07/12/20 23:18 Coding Level of Care Code ED Freight Associate for [employer] Fwd Exam Comprehensive
[2020-07-12] MEDS: ketorolac 60 mg/2 mL INJ IM (22:51)
[2020-07-12 22:54] VITALS: BP 133/80; PULSE 75; RESP 14; O2SAT 95
[2020-07-12] MEDS: HYDROcodone-acetaminophen 7.5-325 mg Tablet 1 TAB PO (23:13)
[2020-07-12 23:17] VITALS: BP 122/64; PULSE 78; RESP 20; O2SAT 95
== END 2020-07-12 23:18 | disposition home or self-care (01) ==
PROVIDERS: Emergency Provider Physician Assistant; PCP Family Medicine
DX: M54.2 Cervicalgia (principal); E11.9 Type 2 diabetes mellitus without complications; E78.5 Hyperlipidemia, unspecified; I10 Essential (primary) hypertension; Z87.891 Personal history of nicotine dependence
CPT/HCPCS: 12345; 99281; 99283; J1885

== ENCOUNTER 2020-07-19 23:34 | Emergency (ER) | payer MEDICARE, MEDICAID, SELFPAY ==
[2020-07-19 23:56] VITALS: BP 162/103; PULSE 94; RESP 20; O2SAT 96; BMI 60.8
--- NOTE | 2020-07-20 00:09 | ED_ITS ---
HPI - General Adult General: Chief complaint: General Medical Stated complaint: lump on breast Time Seen by Provider: 07/19/20 23:51 History of Present Illness: HPI narrative: 50-year-old female patient presents to the emergency department with problem with the right breast. She reports reached down and noticed that there was a bump on her right breast. She states there was drainage from the area. States has appointment with her primary care provider in the morning but did not want to wait. Onset (ago): hour(s) (1) Location: right (Breast) Severity scale (1-10): 1 Quality: dull Relieving factors: none Exacerbating factors: none Associated symptoms: Reports no associated symptoms; Deny chest pain, diaphoresis, dyspnea, headache(s), nausea, rash, palpitations or vomiting Treatments prior to arrival: none Review of Systems General: Reports: 10 or more systems reviewed and unremarkable except in HPI and below Const: Denies: fever(s), chills or diaphoresis Eyes: Denies: blurry vision or eye redness ENMT: Denies: throat pain, dental pain or disequilibrium Card: Denies: chest pain, palpitations or irregular heart rhythm Resp: Denies: dyspnea, productive cough, non-productive cough or wheezing GI: Denies: abdominal pain, nausea or vomiting : Denies: difficulty voiding or dysuria Musc: Denies: back pain Skin/Breast: Reports: erythema and sores; Denies: rash or pruritus Neuro: Denies: headache(s), weakness in extremities or behavioral changes Red/Lymph: Denies: easy bruising PFS ED PFSH: Medical History (Updated 07/20/20 @ 00:18 by IRIS Pyle) Acute serous otitis media of left ear Anxiety Borderline intellectual functioning Controlled type 2 diabetes mellitus, without long-term current use of insulin Depression Dyslipidemia Enrolled in chronic care management Generalized anxiety disorder GERD (gastroesophageal reflux disease) Hypertension Hypothyroidism Obesity BHARAT (obstructive sleep apnea) Seizure disorder Tinnitus Surgical History History of colonoscopy with polypectomy (~09/2018) History of esophagogastroduodenoscopy (EGD) (~09/2018) History of hysterectomy with oophorectomy History of laparoscopic cholecystectomy Family History Grandmother Cancer Father Lung disease Diabetes Denies family history of Anesthesia complication Bleeding disorder Social History Smoking and tobacco status: never smoked Quit status (tobacco): has quit using tobacco Second hand smoke exposure: No Smoking risk assessment/counseling performed?: No Alcohol intake: never Desire information about alcohol rehabilitation?: No Counseling given: No Desire information about substance/drug rehabilitation?: No Counseling given: No Adopted: No Caregiver/support person: Yes Lives independently: Yes Housing: House Marital status: Single Highest education level completed: High School Graduate service: No Current occupational status: employed 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 Current occupational exposures/hazards: No Pets and animals: Yes History of recent travel: No Sexually active: Yes Ania/Congregation: None Special ania needs: No Agree to transfusion: Yes Financial difficulty paying for basics: Not Very Hard Female Reproductive History: Date of last menstrual period: 03/19/20 Physical Exam Const: COMMON NORMALS: no acute distress, patient oriented x3, healthy appearing and alert GENERAL APPEARANCE: cooperative, comfortable and well hydrated HENMT: COMMON NORMALS: normocephalic, Normal external nose present and moist oral mucous membranes HEAD & SCALP: normocephalic NOSE: Normal external nose present Eye: COMMON NORMALS: Equal, round and reactive pupils present and EOMs intact bilaterally GENERAL EYE: appearance normal, both eyes and all related structures PUPIL: Yes Equal, round and reactive pupils present Neck/C-Spine: COMMON NORMALS: full ROM and no lymphadenopathy GENERAL: Yes normal visual inspection and Yes trachea midline CERVICAL SPINE: Yes cervical ROM normal Lymph: LYMPHATIC: no lymphadenopathy noted Chest: COMMONS NORMALS: normal inspection of the chest, normal palpation of entire chest wall and normal palpation of the breasts Resp: COMMON NORMALS: normal respiratory effort and clear to auscultation bilaterally AUSCULTATION: clear to auscultation bilaterally Cardio: COMMON NORMALS: regular rhythm, S1 normal heart sound present and S2 normal heart sound present RHYTHM: regular rhythm HEART SOUNDS: S1 normal heart sound present and S2 normal heart sound present GI: COMMON NORMALS: Soft to palpation and non-tender INSPECTION: Yes normal to inspection PALPATION: Yes Soft to palpation : COMMON NORMALS: Yes no CVA tenderness BLADDER/KIDNEY EXAM: Yes no CVA tenderness Back/Pelvis: COMMON NORMALS: no CVA tenderness and thoracic and lumbar spine normal to inspection Extremity: COMMON NORMALS: normal to inspection and capillary refill normal Neuro: COMMON NORMALS: patient oriented x3 and no focal motor deficits SENSORIUM/ORIENTATION: Yes alert Psych: COMMON NORMALS: mental status grossly normal, Normal thought process present and cooperative ACTIVITY/MOTOR BEHAVIOR: Yes appropriate eye contact THOUGHT PROCESS: Normal thought process present Skin: COMMON NORMALS: no rashes or lesions noted and turgor normal SKIN IMAGES (FEMALE): 1. 2 cm x 2 cm area of open abscess noted to the right andrés ast just adjacent to the nipple. No surrounding erythema. No masses or nodules/axilla lymphadenopathy noted. GENERAL SKIN EXAM: no rashes or lesions noted and turgor normal Course ED course: 50-year-old female patient presents to the emergency department with complaints of problem with her right breast, early abscess appreciated to the right breast. Abscess open and draining. Nontender to touch. She has appointment with Dr. Day in the morning. Bactroban and Band-Aid applied, questions were answered, she is a history of MRSA. Vital Signs: Vital signs: Vital Signs Pulse Rate 94 07/19/20 23:56 Respiratory Rate 20 H 07/19/20 23:56 Blood Pressure 162/103 07/19/20 23:56 Pulse Oximetry 96 07/19/20 23:56 Discharge Plan Discharge Patient Disposition: Home Clinical Impression: Soft tissue abscess, History of MRSA infection Condition: Stable Prescriptions: New mupirocin 2 % ointment 1 applic TOPICAL BID Qty: 22 RF: 0 No Action naproxen 500 mg PO BID RF: 0 Hold Instructions: Resume on 06/13/20. montelukast [Singulair] 10 mg tablet 10 mg PO DAILY Qty: 90 RF: 1 pantoprazole [Protonix] 40 mg tablet,delayed release (DR/EC) 40 mg PO BID Qty: 180 RF: 0 cyclobenzaprine 10 mg tablet 10 mg PO .HS PRN (Reason: muscle spasm) Qty: 7 RF: 0 hydroxyzine HCl 25 mg tablet 25 mg PO BID PRN (Reason: Anxiety) RF: 0 docusate sodium 100 mg capsule 100 mg PO PRN RF: 0 levothyroxine 100 mcg capsule 100 mcg PO DAILY RF: 0 Victoza 2-Solitario 0.6 mg/0.1 mL (18 mg/3 mL) pen injector 1.2 mg SUBCUT DAILY RF: 0 lactulose 10 gram/15 mL solution 10 gm PO BID 7 Days Qty: 210 RF: 0 citalopram [Celexa] 20 mg tablet 20 mg PO DAILY Qty: 30 RF: 2 buspirone 15 mg tablet 15 mg PO TID Qty: 90 RF: 2 (DME) lancets [Accu-Chek Softclix Lancets] Misc See Rx Instructions .ROUTE .MEDSUPPLY Qty: 50 RF: 0 (DME) blood-glucose meter [Accu-Chek Leeann Plus Meter] Misc See Rx Instructions .ROUTE .MEDSUPPLY Qty: 1 RF: 0 (DME) GLUCOMETER Qty: 1 RF: 0 (DME) lancets [Accu-Chek Fastclix Lancet Drum] Misc See Rx Instructions .ROUTE .MEDSUPPLY Qty: 50 RF: 0 (DME) lancing device with lancets [Accu-Chek Soft Dev Lancets] Kit See Rx Instructions .ROUTE .MEDSUPPLY Qty: 100 RF: 2 (DME) pen needle, diabetic [BD Ultra-Fine Short Pen Needle] 31 gauge x 5/16 needle See Rx Instructions .ROUTE .MEDSUPPLY Qty: 100 RF: 2 indapamide 2.5 mg tablet 2.5 mg PO QAM Qty: 30 RF: 5 simvastatin 20 mg tablet 20 mg PO DAILY Qty: 30 RF: 5 amlodipine [Norvasc] 5 mg tablet 5 mg PO DAILY Qty: 30 RF: 5 losartan 50 mg tablet 50 mg PO DAILY Qty: 30 RF: 2 Victoza 3-Solitario 0.6 mg/0.1 mL (18 mg/3 mL) pen injector See Rx Instructions SUBCUT .COMPLEX Qty: 9 RF: 0 (DME) Accu-Chek Leeann Plus test strp Strip See Rx Instructions .ROUTE .MEDSUPPLY Qty: 100 RF: 1 liothyronine 5 mcg tablet 5 mcg PO DAILY RF: 0 paroxetine HCl 20 mg tablet 20 mg PO DAILY RF: 0 cholecalciferol (vitamin D3) 1,250 mcg (50,000 unit) capsule 50,000 unit PO Q7D RF: 0 Carafate 1 gram tablet 1 gm PO TID 84 Days Qty: 252 RF: 0 ibuprofen 800 mg tablet 800 mg PO Q8H PRN (Reason: pain) Qty: 30 RF: 0 Discharge Orders: Discharge Order (Routine); Ordered 07/20/20 Ordered By: Priya Ybarra Referrals: Che Day DO [Primary Care Provider] - Discharge Diet: Usual diet Discharge Activity: Resume usual activity Patient Instructions: Methicillin Resistant Staphylococcus Aureus (ED), Abscess (ED) Activity Restrictions/Additional Instructions: Apply Band-Aid to the area after applying antibiotic ointment, keep the wound covered until completely healed You may take off the Band-Aid and wash with soap and water daily Follow-up with Dr. Day as scheduled tomorrow without fail Return to the emergency department if you develop fever chills nausea vomiting or worsening symptoms. Coding Level of Care Code ED Plant Health Manager for Robyn Ruiz
[2020-07-20 00:27] VITALS: BP 132/76; PULSE 87; RESP 16; O2SAT 99
[2020-07-20 00:31] VITALS: BP 132/76; PULSE 87; RESP 16; O2SAT 99
== END 2020-07-20 00:32 | disposition home or self-care (01) ==
PROVIDERS: Emergency Provider Nurse Practitioner Family; PCP Family Medicine
DX: N61.1 Abscess of the breast and nipple (principal); Z86.14 Personal history of Methicillin resistant Staphylococcus aureus infection; Z87.891 Personal history of nicotine dependence; E11.9 Type 2 diabetes mellitus without complications; E78.5 Hyperlipidemia, unspecified; I10 Essential (primary) hypertension
CPT/HCPCS: 12345; 99281; 99282

== ENCOUNTER → 2020-07-27 13:27 | Outpatient (BNVA) | payer MEDICARE, MEDICAID, SELFPAY | PROVIDERS: PCP Family Medicine; Visit Provider Family Medicine | DX: L03.311 Cellulitis of abdominal wall (principal) | CPT/HCPCS: 84450; 87070 ==

== ENCOUNTER 2020-07-30 02:56 | Emergency (ER) | payer MEDICARE, MEDICAID, SELFPAY ==
[2020-07-30 03:01] VITALS: BP 151/88; PULSE 80; RESP 18; TEMP 36.3; O2SAT 98; BMI 61.9
--- NOTE | 2020-07-30 03:06 | ED_ITS ---
HPI - Headache General: Chief Complaint: Headache Stated Complaint: migraine/vomiting Time Seen by Provider: 07/30/20 02:58 Source: patient Mode of arrival: ambulatory Limitations: no limitations History of Present Illness: HPI Narrative: 50-year-old female has history of migraines been seen here multiple times for migraines. States she had a headache started gradually 3 hours ago and is worsened and now is a 9 out of 10. She has had nausea along with headache. Denies any fever. Denies any neck pain. MD elicited complaint: headache Onset (ago): hour(s) Onset description: gradually Location: frontal Severity: moderate Quality & Timing: aching Exacerbating factors: light Relieving factors: nothing Associated symptoms: Deny chest pain, fever(s), nausea, rash or vomiting Review of Systems Const: Denies: fever(s), chills, body aches or change in appetite Eyes: Denies: blurry vision or eye discomfort ENMT: Denies: throat pain or dental pain Card: Denies: chest pain Resp: Denies: dyspnea GI: Denies: abdominal pain, nausea, vomiting or diarrhea : Denies: dysuria Musc: Denies: neck pain or back pain Skin/Breast: Denies: rash Neuro: Reports: headache(s) Psych: Denies: depression Red/Lymph: Denies: easy bruising All/Imm: Denies: urticaria PFSH ED PFSH: Medical History Acute serous otitis media of left ear Anxiety Borderline intellectual functioning Controlled type 2 diabetes mellitus, without long-term current use of insulin Depression Dyslipidemia Enrolled in chronic care management Generalized anxiety disorder GERD (gastroesophageal reflux disease) Hypertension Hypothyroidism Obesity BHARAT (obstructive sleep apnea) Seizure disorder Tinnitus Surgical History History of colonoscopy with polypectomy (~09/2018) History of esophagogastroduodenoscopy (EGD) (~09/2018) History of hysterectomy with oophorectomy History of laparoscopic cholecystectomy Family History Grandmother Cancer Father Lung disease Diabetes Denies family history of Anesthesia complication Bleeding disorder Social History Smoking and tobacco status: never smoked Quit status (tobacco): has quit using tobacco Second hand smoke exposure: No Smoking risk assessment/counseling performed?: No Alcohol intake: never Desire information about alcohol rehabilitation?: No Counseling given: No Desire information about substance/drug rehabilitation?: No Counseling given: No Adopted: No Caregiver/support person: Yes Lives independently: Yes Housing: House Marital status: Single Highest education level completed: High School Graduate service: No Current occupational status: employed 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 Current occupational exposures/hazards: No Pets and animals: Yes History of recent travel: No Sexually active: Yes Ania/Jew: None Special ania needs: No Agree to transfusion: Yes Financial difficulty paying for basics: Not Very Hard Female Reproductive History: Date of last menstrual period: 03/19/20 Physical Exam Const: COMMON NORMALS: no acute distress, patient oriented x3 and healthy appearing HENMT: COMMON NORMALS: normocephalic and atraumatic HEAD & SCALP: normocephalic and atraumatic Eye: COMMON NORMALS: Equal, round and reactive pupils present and EOMs intact bilaterally PUPIL: Yes Equal, round and reactive pupils present Neck/C-Spine: COMMON NORMALS: full ROM and supple Chest: COMMONS NORMALS: normal inspection of the chest and normal palpation of entire chest wall Resp: COMMON NORMALS: normal respiratory effort, No retractions, No use of accessory muscles and clear to auscultation bilaterally AUSCULTATION: clear to auscultation bilaterally Cardio: COMMON NORMALS: regular rate, regular rhythm and No murmurs present (Cardio) RATE: regular rate RHYTHM: regular rhythm GI: COMMON NORMALS: Normal to inspection, nondistended, normoactive bowel sounds present, Soft to palpation, non-tender and no masses PALPATION: Yes Soft to palpation Extremity: COMMON NORMALS: normal to inspection and full ROM Neuro: COMMON NORMALS: patient oriented x3, moves all extremities and no focal motor deficits Psych: COMMON NORMALS: mental status grossly normal, Normal thought process present and cooperative THOUGHT PROCESS: Normal thought process present Skin: COMMON NORMALS: no rashes or lesions noted and no wounds GENERAL SKIN EXAM: no rashes or lesions noted Course Vital Signs: Vital signs: Vital Signs Temperature 97.3 F L 07/30/20 03:01 Pulse Rate 80 07/30/20 03:01 Respiratory Rate 18 07/30/20 03:01 Blood Pressure 151/88 07/30/20 03:01 Pulse Oximetry 98 07/30/20 03:01 MDM - Headache MDM Narrative: Medical decision making narrative: Patient presents with a headache that is a migraine headache. She has a long history of migraines. She has no signs of meningitis or subarachnoid hemorrhage. Patient feels improved here and is stable for discharge. She is to follow-up with PCP in 3 to 5 days return to ER if worsening. Discharge Plan Discharge Patient Disposition: Home Clinical Impression: Migraine Qualifiers: Migraine type: unspecified Status migrainosus presence: without status migrainosus Intractability: not intractable Qualified Code(s): G43.909 - Migraine, unspecified, not intractable, without status migrainosus Condition: Stable Prescriptions: No Action montelukast [Singulair] 10 mg tablet 10 mg PO DAILY Qty: 90 RF: 1 pantoprazole [Protonix] 40 mg tablet,delayed release (DR/EC) 40 mg PO BID Qty: 180 RF: 0 cyclobenzaprine 10 mg tablet 10 mg PO .HS PRN (Reason: muscle spasm) Qty: 7 RF: 0 hydroxyzine HCl 25 mg tablet 25 mg PO BID PRN (Reason: Anxiety) RF: 0 docusate sodium 100 mg capsule 100 mg PO PRN RF: 0 levothyroxine 100 mcg capsule 100 mcg PO DAILY RF: 0 Victoza 2-Solitario 0.6 mg/0.1 mL (18 mg/3 mL) pen injector 1.2 mg SUBCUT DAILY RF: 0 lactulose 10 gram/15 mL solution 10 gm PO BID 7 Days Qty: 210 RF: 0 citalopram [Celexa] 20 mg tablet 20 mg PO DAILY Qty: 30 RF: 2 buspirone 15 mg tablet 15 mg PO TID Qty: 90 RF: 2 clindamycin HCl 300 mg capsule 300 mg PO TID Qty: 21 RF: 0 (DME) lancets [Accu-Chek Softclix Lancets] Misc See Rx Instructions .ROUTE .MEDSUPPLY Qty: 50 RF: 0 (DME) blood-glucose meter [Accu-Chek Leeann Plus Meter] Misc See Rx Instructions .ROUTE .MEDSUPPLY Qty: 1 RF: 0 (DME) GLUCOMETER Qty: 1 RF: 0 (DME) lancets [Accu-Chek Fastclix Lancet Drum] Misc See Rx Instructions .ROUTE .MEDSUPPLY Qty: 50 RF: 0 (DME) lancing device with lancets [Accu-Chek Soft Dev Lancets] Kit See Rx Instructions .ROUTE .MEDSUPPLY Qty: 100 RF: 2 (DME) pen needle, diabetic [BD Ultra-Fine Short Pen Needle] 31 gauge x 5/16 needle See Rx Instructions .ROUTE .MEDSUPPLY Qty: 100 RF: 2 indapamide 2.5 mg tablet 2.5 mg PO QAM Qty: 30 RF: 5 simvastatin 20 mg tablet 20 mg PO DAILY Qty: 30 RF: 5 amlodipine [Norvasc] 5 mg tablet 5 mg PO DAILY Qty: 30 RF: 5 losartan 50 mg tablet 50 mg PO DAILY Qty: 30 RF: 2 (DME) Accu-Chek Leeann Plus test strp Strip See Rx Instructions .ROUTE .MEDSUPPLY Qty: 100 RF: 1 liothyronine 5 mcg tablet 5 mcg PO DAILY RF: 0 paroxetine HCl 20 mg tablet 20 mg PO DAILY RF: 0 Carafate 1 gram tablet 1 gm PO TID 84 Days Qty: 252 RF: 0 ibuprofen 800 mg tablet 800 mg PO Q8H PRN (Reason: pain) Qty: 30 RF: 0 mupirocin 2 % ointment 1 applic TOPICAL BID Qty: 22 RF: 0 Discharge Orders: Discharge Order (Routine); Ordered 07/30/20 Ordered By: Patricia Arroyo Referrals: Che Day DO [Primary Care Provider] - 1-3 days Discharge Diet: Advance as tolerated Discharge Activity: Resume usual activity Patient Instructions: Migraine Headache (ED) Coding Level of Care Code ED Brick Tender for Chg Fwd Exam Comprehensive
[2020-07-30] MEDS: ketorolac 30 mg/mL INJ IVP (03:38)
[2020-07-30] MEDS: ondansetron 2 mg/ML SDV 2 mL 4 MG IVP (03:39)
[2020-07-30 05:05] VITALS: PULSE 82; RESP 18; O2SAT 96
== END 2020-07-30 05:06 | disposition home or self-care (01) ==
PROVIDERS: Emergency Provider Emergency Medicine; PCP Family Medicine
DX: G43.909 Migraine, unspecified, not intractable, without status migrainosus (principal); Z87.891 Personal history of nicotine dependence; E11.9 Type 2 diabetes mellitus without complications; E78.5 Hyperlipidemia, unspecified; I10 Essential (primary) hypertension
CPT/HCPCS: 12345; 96374; 96375; 99283; J1885; J2405

== ENCOUNTER 2020-08-03 03:18 | Emergency (ER) | payer MEDICARE, MEDICAID, SELFPAY ==
--- NOTE | 2020-08-03 03:39 | W.ED.FEMALGU ---
HPI - Female Genitourinary General: Chief complaint: Urogenital-Female Stated complaint: poss uti Time Seen by Provider: 08/03/20 03:38 History of Present Illness: HPI Narrative: Patient is a 50-year-old female that comes to the ED with UTI symptoms. Patient is morbidly obese and has a past medical history of GERD, hypertension, hypothyroidism, obstructive sleep apnea, hyperlipidemia and type 2 diabetes. Patient says symptoms started yesterday. She is having increased frequency and burning when urinating. She also endorses having a lot of vaginal itching today. Denies any vaginal discharge or hematuria. Associated symptoms: Deny abdominal pain, headache(s), nausea or vaginal discharge Date of Last Menstrual Period: 03/19/20 Review of Systems Const: Denies: fever(s), chills or fatigue Eyes: Denies: change in vision or eye discomfort ENMT: Denies: throat pain, odynophagia, nasal discharge or nasal congestion Card: Denies: chest pain, palpitations, edema, swelling of feet/ankles, dyspnea on exertion or orthopnea Resp: Denies: dyspnea, productive cough or non-productive cough GI: Denies: abdominal pain, nausea, vomiting, diarrhea, constipation or hematochezia : Reports: dysuria, urinary frequency and genital pruritis; Denies: flank pain, hematuria or vaginal discharge Musc: Denies: neck pain, back pain or extremity swelling Skin/Breast: Denies: rash or new lesions Neuro: Denies: headache(s), numbness in extremities or weakness in extremities PFS ED PFSH: Medical History Acute serous otitis media of left ear Anxiety Borderline intellectual functioning Controlled type 2 diabetes mellitus, without long-term current use of insulin Depression Dyslipidemia Enrolled in chronic care management Generalized anxiety disorder GERD (gastroesophageal reflux disease) Hypertension Hypothyroidism Obesity BHARAT (obstructive sleep apnea) Seizure disorder Tinnitus Surgical History History of colonoscopy with polypectomy (~09/2018) History of esophagogastroduodenoscopy (EGD) (~09/2018) History of hysterectomy with oophorectomy History of laparoscopic cholecystectomy Family History Grandmother Cancer Father Lung disease Diabetes Denies family history of Anesthesia complication Bleeding disorder Social History Smoking and tobacco status: never smoked Quit status (tobacco): has quit using tobacco Second hand smoke exposure: No Smoking risk assessment/counseling performed?: No Alcohol intake: never Desire information about alcohol rehabilitation?: No Counseling given: No Desire information about substance/drug rehabilitation?: No Counseling given: No Adopted: No Caregiver/support person: Yes Lives independently: Yes Housing: House Marital status: Single Highest education level completed: High School Graduate service: No Current occupational status: employed 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 Current occupational exposures/hazards: No Pets and animals: Yes History of recent travel: No Sexually active: Yes Ania/Scientology: None Special ania needs: No Agree to transfusion: Yes Financial difficulty paying for basics: Not Very Hard Female Reproductive History: Date of last menstrual period: 03/19/20 Physical Exam Const: COMMON NORMALS: no acute distress, patient oriented x3 and alert GENERAL APPEARANCE: cooperative and comfortable NUTRITIONAL APPEARANCE: obese morbidly obese HENMT: COMMON NORMALS: normocephalic HEAD & SCALP: normocephalic MOUTH: Normal oral and palatal mucosa present THROAT: posterior oropharynx normal and uvula midline Eye: COMMON NORMALS: Equal, round and reactive pupils present PUPIL: Yes Equal, round and reactive pupils present Neck/C-Spine: COMMON NORMALS: supple GENERAL: Yes normal visual inspection Resp: COMMON NORMALS: normal respiratory effort, No retractions, No use of accessory muscles and clear to auscultation bilaterally AUSCULTATION: clear to auscultation bilaterally Cardio: COMMON NORMALS: regular rate, regular rhythm, S1 normal heart sound present, S2 normal heart sound present, No gallops present (Cardio), No clicks present (Cardio), No murmurs present (Cardio) and Peripheral pulses 2+ throughout RATE: regular rate RHYTHM: regular rhythm HEART SOUNDS: S1 normal heart sound present and S2 normal heart sound present PERIPHERAL PULSES: Peripheral pulses 2+ throughout GI: COMMON NORMALS: Normal to inspection, nondistended, normoactive bowel sounds present, Soft to palpation, non-tender and no masses PALPATION: Yes Soft to palpation : COMMON NORMALS: Yes no CVA tenderness BLADDER/KIDNEY EXAM: Yes no CVA tenderness Back/Pelvis: COMMON NORMALS: no CVA tenderness Extremity: COMMON NORMALS: normal to inspection Neuro: COMMON NORMALS: patient oriented x3 and moves all extremities SENSORIUM/ORIENTATION: Yes alert Skin: GENERAL SKIN EXAM: dry skin Course Vital Signs: Vital signs: Vital Signs Temperature 97.6 F 08/03/20 03:41 Pulse Rate 79 08/03/20 03:41 Respiratory Rate 22 H 08/03/20 03:41 Blood Pressure 160/101 08/03/20 03:41 Pulse Oximetry 94 08/03/20 03:41 MDM - Female MDM Narrative: Medical decision making narrative: Patient is a 50-year-old female comes to the ED with UTI symptoms. I performed the initial history physical exam and ordered lab work. I then transferred care over to Dr. Chapa since it was time for me to leave. I told him about patient's case and and signed note out to Dr. Chapa. Discharge Plan Discharge Prescriptions: No Action montelukast [Singulair] 10 mg tablet 10 mg PO DAILY Qty: 90 RF: 1 pantoprazole [Protonix] 40 mg tablet,delayed release (DR/EC) 40 mg PO BID Qty: 180 RF: 0 cyclobenzaprine 10 mg tablet 10 mg PO .HS PRN (Reason: muscle spasm) Qty: 7 RF: 0 hydroxyzine HCl 25 mg tablet 25 mg PO BID PRN (Reason: Anxiety) RF: 0 docusate sodium 100 mg capsule 100 mg PO PRN RF: 0 levothyroxine 100 mcg capsule 100 mcg PO DAILY RF: 0 Victoza 2-Solitario 0.6 mg/0.1 mL (18 mg/3 mL) pen injector 1.2 mg SUBCUT DAILY RF: 0 lactulose 10 gram/15 mL solution 10 gm PO BID 7 Days Qty: 210 RF: 0 citalopram [Celexa] 20 mg tablet 20 mg PO DAILY Qty: 30 RF: 2 buspirone 15 mg tablet 15 mg PO TID Qty: 90 RF: 2 clindamycin HCl 300 mg capsule 300 mg PO TID Qty: 21 RF: 0 (DME) lancets [Accu-Chek Softclix Lancets] Misc See Rx Instructions .ROUTE .MEDSUPPLY Qty: 50 RF: 0 (DME) blood-glucose meter [Accu-Chek Leeann Plus Meter] Misc See Rx Instructions .ROUTE .MEDSUPPLY Qty: 1 RF: 0 (DME) GLUCOMETER Qty: 1 RF: 0 (DME) lancets [Accu-Chek Fastclix Lancet Drum] Misc See Rx Instructions .ROUTE .MEDSUPPLY Qty: 50 RF: 0 (DME) lancing device with lancets [Accu-Chek Soft Dev Lancets] Kit See Rx Instructions .ROUTE .MEDSUPPLY Qty: 100 RF: 2 (DME) pen needle, diabetic [BD Ultra-Fine Short Pen Needle] 31 gauge x 5/16 needle See Rx Instructions .ROUTE .MEDSUPPLY Qty: 100 RF: 2 indapamide 2.5 mg tablet 2.5 mg PO QAM Qty: 30 RF: 5 simvastatin 20 mg tablet 20 mg PO DAILY Qty: 30 RF: 5 amlodipine [Norvasc] 5 mg tablet 5 mg PO DAILY Qty: 30 RF: 5 losartan 50 mg tablet 50 mg PO DAILY Qty: 30 RF: 2 (DME) Accu-Chek Leeann Plus test strp Strip See Rx Instructions .ROUTE .MEDSUPPLY Qty: 100 RF: 1 liothyronine 5 mcg tablet 5 mcg PO DAILY RF: 0 paroxetine HCl 20 mg tablet 20 mg PO DAILY RF: 0 Carafate 1 gram tablet 1 gm PO TID 84 Days Qty: 252 RF: 0 ibuprofen 800 mg tablet 800 mg PO Q8H PRN (Reason: pain) Qty: 30 RF: 0 mupirocin 2 % ointment 1 applic TOPICAL BID Qty: 22 RF: 0 Coding Level of Care Code ED Traffic Engineering Technician for Chg Fwd Exam Comprehensive
[2020-08-03 03:41] VITALS: BP 160/101; PULSE 79; RESP 22; TEMP 36.4; O2SAT 94; BMI 61.9
[2020-08-03 04:33] LABS: HCG Qualitative Urine. Negative (Negative)
[2020-08-03 04:35] LABS: Bacteria Urine 1+ /hpf; Bilirubin Urine Neg (Negative); Blood Urine 2+ (Negative); Glucose Urine UA 4+ (Normal); Ketones Urine Negative (Negative); Leukocyte Esterase Urine 2+ (Negative); Nitrate Urine Negative (Negative); Protein Urine Neg (Negative); RBC Urine 0-4 /hpf (0-2); Specific Gravity, Urine 1.015 (1.005-1.030); Squamous Epithelial Cell Urine 0-4 /hpf (0-5); Urine Appearance SL Hazy (CLEAR); Urine Color Yellow (Yellow); Urobilinogen Urine Norm (Negative); WBC Urine 15-25 /hpf (0-5); pH Urine 5 (5-7)
== END 2020-08-03 05:03 | disposition home or self-care (01) ==
PROVIDERS: Emergency Medicine; Emergency Provider Physician Assistant; PCP Family Medicine
DX: R35.0 Frequency of micturition (principal); Z87.891 Personal history of nicotine dependence; E11.9 Type 2 diabetes mellitus without complications; E78.5 Hyperlipidemia, unspecified; I10 Essential (primary) hypertension
CPT/HCPCS: 12345; 81001; 81025; 99282; 99283

== ENCOUNTER 2020-08-11 00:33 | Emergency (ER) | payer MEDICARE, MEDICAID, SELFPAY ==
[2020-08-11 00:42] VITALS: BP 166/80; PULSE 80; RESP 16; TEMP 36.2; O2SAT 98
[2020-08-11 00:55] VITALS: BP 158/78; PULSE 78; RESP 16; O2SAT 97
--- NOTE | 2020-08-11 00:58 | W.ED.SKABFB ---
HPI - Skin/Abscess/Foreign Bdy General: Chief complaint: Skin/Abscess/Foreign Body Stated complaint: Rash Time Seen by Provider: 08/11/20 00:47 History of Present Illness: HPI narrative: Patient comes in with 3 small macules to left forearm, flea bite in appearance. Patient reports has been taking care of friends dog while she has surgery. Patient appears well. Patient appears in no distress. Review of Systems General: Reports: 10 or more systems reviewed and unremarkable except in HPI and below Skin/Breast: Reports: new lesions PFSH ED PFSH: Medical History (Updated 08/11/20 @ 00:57 by PIPPA Arango) Acute serous otitis media of left ear Anxiety Borderline intellectual functioning Controlled type 2 diabetes mellitus, without long-term current use of insulin Depression Dyslipidemia Enrolled in chronic care management Generalized anxiety disorder GERD (gastroesophageal reflux disease) Hypertension Hypothyroidism Obesity BHARAT (obstructive sleep apnea) Seizure disorder Tinnitus Surgical History History of colonoscopy with polypectomy (~09/2018) History of esophagogastroduodenoscopy (EGD) (~09/2018) History of hysterectomy with oophorectomy History of laparoscopic cholecystectomy Family History Grandmother Cancer Father Lung disease Diabetes Denies family history of Anesthesia complication Bleeding disorder Social History Smoking and tobacco status: never smoked Quit status (tobacco): has quit using tobacco Second hand smoke exposure: No Smoking risk assessment/counseling performed?: No Alcohol intake: never Desire information about alcohol rehabilitation?: No Counseling given: No Desire information about substance/drug rehabilitation?: No Counseling given: No Adopted: No Caregiver/support person: Yes Lives independently: Yes Housing: House Marital status: Single Highest education level completed: High School Graduate service: No Current occupational status: employed 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 Current occupational exposures/hazards: No Pets and animals: Yes History of recent travel: No Sexually active: Yes Ania/Gnosticism: None Special ania needs: No Agree to transfusion: Yes Financial difficulty paying for basics: Not Very Hard Female Reproductive History: Date of last menstrual period: 03/19/20 Physical Exam Const: COMMON NORMALS: no acute distress and patient oriented x3 GENERAL APPEARANCE: cooperative HENMT: COMMON NORMALS: normocephalic and Normal external nose present HEAD & SCALP: normal to inspection and normocephalic NOSE: Normal external nose present MOUTH: Normal oral and palatal mucosa present Eye: GENERAL EYE: appearance normal, both eyes and all related structures Neck/C-Spine: COMMON NORMALS: full ROM Chest: COMMONS NORMALS: normal inspection of the chest Resp: COMMON NORMALS: normal respiratory effort EFFORT & INSPECTION: Yes able to speak in complete sentences Cardio: COMMON NORMALS: regular rate and regular rhythm RATE: regular rate RHYTHM: regular rhythm GI: COMMON NORMALS: non-tender Back/Pelvis: COMMON NORMALS: thoracic and lumbar spine normal to inspection Extremity: COMMON NORMALS: normal to inspection Neuro: COMMON NORMALS: patient oriented x3 and moves all extremities Psych: COMMON NORMALS: mental status grossly normal and cooperative Skin: NARRATIVE SKIN EXAM: three 3 mm red elevated lesions to left forearm. Course Vital Signs: Vital signs: Vital Signs Temperature 97.2 F L 08/11/20 00:42 Pulse Rate 78 08/11/20 00:55 Respiratory Rate 16 08/11/20 00:55 Blood Pressure 158/78 08/11/20 00:55 Pulse Oximetry 97 08/11/20 00:55 Discharge Plan Discharge Patient Disposition: Home Clinical Impression: Insect bite of forearm with local reaction Qualifiers: Encounter type: initial encounter Laterality: left Qualified Code(s): S50.862A - Insect bite (nonvenomous) of left forearm, initial encounter Condition: Stable Prescriptions: New hydrocortisone 1 % cream 1 applic TOPICAL BID Qty: 14.2 RF: 0 No Action montelukast [Singulair] 10 mg tablet 10 mg PO DAILY Qty: 90 RF: 1 pantoprazole [Protonix] 40 mg tablet,delayed release (DR/EC) 40 mg PO BID Qty: 180 RF: 0 cyclobenzaprine 10 mg tablet 10 mg PO .HS PRN (Reason: muscle spasm) Qty: 7 RF: 0 hydroxyzine HCl 25 mg tablet 25 mg PO BID PRN (Reason: Anxiety) RF: 0 docusate sodium 100 mg capsule 100 mg PO PRN RF: 0 levothyroxine 100 mcg capsule 100 mcg PO DAILY RF: 0 Victoza 2-Solitario 0.6 mg/0.1 mL (18 mg/3 mL) pen injector 1.2 mg SUBCUT DAILY RF: 0 lactulose 10 gram/15 mL solution 10 gm PO BID 7 Days Qty: 210 RF: 0 citalopram [Celexa] 20 mg tablet 20 mg PO DAILY Qty: 30 RF: 2 buspirone 15 mg tablet 15 mg PO TID Qty: 90 RF: 2 clindamycin HCl 300 mg capsule 300 mg PO TID Qty: 21 RF: 0 (DME) lancets [Accu-Chek Softclix Lancets] Misc See Rx Instructions .ROUTE .MEDSUPPLY Qty: 50 RF: 0 (DME) blood-glucose meter [Accu-Chek Leeann Plus Meter] Misc See Rx Instructions .ROUTE .MEDSUPPLY Qty: 1 RF: 0 (DME) GLUCOMETER Qty: 1 RF: 0 (DME) lancets [Accu-Chek Fastclix Lancet Drum] Misc See Rx Instructions .ROUTE .MEDSUPPLY Qty: 50 RF: 0 (DME) lancing device with lancets [Accu-Chek Soft Dev Lancets] Kit See Rx Instructions .ROUTE .MEDSUPPLY Qty: 100 RF: 2 (DME) pen needle, diabetic [BD Ultra-Fine Short Pen Needle] 31 gauge x 5/16 needle See Rx Instructions .ROUTE .MEDSUPPLY Qty: 100 RF: 2 indapamide 2.5 mg tablet 2.5 mg PO QAM Qty: 30 RF: 5 simvastatin 20 mg tablet 20 mg PO DAILY Qty: 30 RF: 5 amlodipine [Norvasc] 5 mg tablet 5 mg PO DAILY Qty: 30 RF: 5 losartan 50 mg tablet 50 mg PO DAILY Qty: 30 RF: 2 (DME) Accu-Chek Leeann Plus test strp Strip See Rx Instructions .ROUTE .MEDSUPPLY Qty: 100 RF: 1 liothyronine 5 mcg tablet 5 mcg PO DAILY RF: 0 paroxetine HCl 20 mg tablet 20 mg PO DAILY RF: 0 Carafate 1 gram tablet 1 gm PO TID 84 Days Qty: 252 RF: 0 ibuprofen 800 mg tablet 800 mg PO Q8H PRN (Reason: pain) Qty: 30 RF: 0 cefdinir 300 mg capsule 300 mg PO BID 10 Days Qty: 20 RF: 0 mupirocin 2 % ointment 1 applic TOPICAL BID Qty: 22 RF: 0 Discharge Orders: Discharge Order (Routine); Ordered 08/11/20 Ordered By: Ash Burton Referrals: Che Day DO [Primary Care Provider] - Discharge Diet: Usual diet Discharge Activity: Increase activity as tolerated Patient Instructions: Insect Bite or Sting (ED) Activity Restrictions/Additional Instructions: Use cream to insect bite twice a day until clear. Follow-up with primary care in morning as needed. Return to ER for new concerns Coding Level of Care Code ED Activities Manager for Robyn Ruiz
[2020-08-11] MEDS: hydrocortisone 1% cream 28 gm 1 APPLIC TOPICAL (01:02)
== END 2020-08-11 01:10 | disposition home or self-care (01) ==
PROVIDERS: Emergency Provider Nurse Practitioner Family; PCP Family Medicine
DX: S50.862A Insect bite (nonvenomous) of left forearm, initial encounter (principal); E11.9 Type 2 diabetes mellitus without complications; E78.5 Hyperlipidemia, unspecified; I10 Essential (primary) hypertension; Z87.891 Personal history of nicotine dependence; W57.XXXA Bitten or stung by nonvenomous insect and other nonvenomous arthropods, initial encounter
CPT/HCPCS: 12345; 99281; 99282

== ENCOUNTER → 2020-08-22 16:52 | Outpatient (BNVA) | payer MEDICARE, MEDICAID, SELFPAY | PROVIDERS: PCP Family Medicine; Visit Provider Nurse Practitioner | DX: M25.562 Pain in left knee (principal) | CPT/HCPCS: 73562 ==

== ENCOUNTER 2020-08-24 08:09 | Outpatient (CLI) | payer MEDICARE, MEDICAID, SELFPAY ==
--- NOTE | 2020-08-24 08:30 | MM_ITS ---
WS: [id number] BILATERAL DIGITAL SCREENING MAMMOGRAM WITH CAD CLINICAL INFORMATION: screening mammogram HISTORY: Screening mammogram. No current complaints. COMPARISON: None. TECHNIQUE: Bilateral CC and MLO views. FINDINGS: Fatty-replaced breasts bilaterally. No suspicious focal mass, asymmetry, calcifications, or network architect ural distortion. No evidence of malignancy. MM/[place] [id number] IMPRESSION: BI-RADS: 1-Negative FOLLOW UP: 1 Year Follow-up Recommend return to annual screening mammography.
== END 2020-08-24 08:10 | disposition home or self-care (01) ==
LOC: RADSHAW 08:12
PROVIDERS: PCP Family Medicine; Visit Provider Family Medicine
DX: Z12.31 Encounter for screening mammogram for malignant neoplasm of breast (principal)
CPT/HCPCS: 77067

== ENCOUNTER 2020-10-08 21:36 | Emergency (ER) | payer MEDICARE, MEDICAID, SELFPAY ==
[2020-10-08 22:03] VITALS: BP 190/97; PULSE 81; RESP 14; TEMP 36.9; O2SAT 96; BMI 56.5
--- NOTE | 2020-10-08 22:06 | XRR_ITS ---
PROCEDURE INFORMATION: Exam: XR Chest, 1 View Exam date and time: 10/08/2020 11:20 PM Age: 50 years old Clinical indication: Shortness of breath; Prior surgery; Surgery type: Gb; Additional info: SOB TECHNIQUE: Imaging protocol: XR of the chest Views: 1 view. COMPARISON: CR Chest 1 [place] [id number] 04/03/2018 12:11 AM FINDINGS: Lungs: Mild airspace disease within the left lung base. Infiltrate and/or atelectasis. Pleural space: Unremarkable. No pleural effusion. No pneumothorax. Heart/Mediastinum: Unremarkable. No cardiomegaly. Bones/joints: Unremarkable. XR/XR chest 1V portable [id number] IMPRESSION: Mild airspace disease within the left lung base. Infiltrate and/or atelectasis. Small subpulmonic effusion.
[2020-10-08 22:45] VITALS: BP 194/69; PULSE 76; RESP 28; O2SAT 97
--- NOTE | 2020-10-08 22:52 | ED_ITS ---
HPI - General Adult General: Chief complaint: General Medical Stated complaint: SORE THROAT, SOB Time Seen by Provider: 10/08/20 22:44 Source: patient Mode of arrival: ambulatory Limitations: no limitations History of Present Illness: HPI narrative: 50-year-old female who states over the last 2 to 3 days she has been having a sore throat along with slight shortness of breath. She states she has not been wearing her BiPAP at night either. She denies any fever. She denies any known sick contacts. She states that her throat pain is a 5 out of 10 denies any problems swallowing. She is in no distress here. Associated symptoms: Reports dyspnea; Deny chest pain, headache(s), nausea, rash or vomiting Review of Systems Const: Denies: fever(s), chills, body aches or change in appetite Eyes: Denies: blurry vision or eye discomfort ENMT: Reports: throat pain; Denies: dental pain Card: Denies: chest pain Resp: Reports: dyspnea GI: Denies: abdominal pain, nausea, vomiting or diarrhea : Denies: dysuria Musc: Denies: neck pain or back pain Skin/Breast: Denies: rash Neuro: Denies: headache(s) Psych: Denies: depression Red/Lymph: Denies: easy bruising All/Imm: Denies: urticaria PFSH ED PFSH: Medical History (Updated 10/08/20 @ 23:26 by Patricia Arroyo MD) Acute serous otitis media of left ear Anxiety Borderline intellectual functioning Controlled type 2 diabetes mellitus, without long-term current use of insulin Depression Dyslipidemia Enrolled in chronic care management Generalized anxiety disorder GERD (gastroesophageal reflux disease) Hypertension Hypothyroidism Obesity BHARAT (obstructive sleep apnea) Seizure disorder Tinnitus Surgical History History of colonoscopy with polypectomy (~09/2018) History of esophagogastroduodenoscopy (EGD) (~09/2018) History of hysterectomy with oophorectomy History of laparoscopic cholecystectomy Family History Grandmother Cancer Father Lung disease Diabetes Denies family history of Anesthesia complication Bleeding disorder Social History Smoking and tobacco status: never smoked Quit status (tobacco): has quit using tobacco Second hand smoke exposure: No Smoking risk assessment/counseling performed?: No Alcohol intake: never Desire information about alcohol rehabilitation?: No Counseling given: No Desire information about substance/drug rehabilitation?: No Counseling given: No Adopted: No Caregiver/support person: Yes Lives independently: Yes Housing: House Marital status: Single Highest education level completed: High School Graduate service: No Current occupational status: employed 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 Current occupational exposures/hazards: No Pets and animals: Yes History of recent travel: No Sexually active: Yes Ania/Rastafari: None Special ania needs: No Agree to transfusion: Yes Financial difficulty paying for basics: Not Very Hard Female Reproductive History: Date of last menstrual period: 03/19/20 Physical Exam Const: COMMON NORMALS: no acute distress, patient oriented x3 and healthy appearing HENMT: COMMON NORMALS: normocephalic and atraumatic HEAD & SCALP: normocephalic and atraumatic OTHER: No uvula deviation no pharyngeal erythema Eye: COMMON NORMALS: Equal, round and reactive pupils present and EOMs intact bilaterally PUPIL: Yes Equal, round and reactive pupils present Neck/C-Spine: COMMON NORMALS: full ROM and supple Chest: COMMONS NORMALS: normal inspection of the chest and normal palpation of entire chest wall Resp: COMMON NORMALS: normal respiratory effort, No retractions, No use of accessory muscles and clear to auscultation bilaterally AUSCULTATION: clear to auscultation bilaterally Cardio: COMMON NORMALS: regular rate, regular rhythm and No murmurs present (Cardio) RATE: regular rate RHYTHM: regular rhythm GI: COMMON NORMALS: Normal to inspection, nondistended, normoactive bowel sounds present, Soft to palpation, non-tender and no masses PALPATION: Yes Soft to palpation Extremity: COMMON NORMALS: normal to inspection and full ROM Neuro: COMMON NORMALS: patient oriented x3, moves all extremities and no focal motor deficits Psych: COMMON NORMALS: mental status grossly normal, Normal thought process present and cooperative THOUGHT PROCESS: Normal thought process present Skin: COMMON NORMALS: no rashes or lesions noted and no wounds GENERAL SKIN EXAM: no rashes or lesions noted Course Vital Signs: Vital signs: Vital Signs Temperature 98.4 F 10/08/20 22:03 Pulse Rate 90 10/08/20 23:36 Respiratory Rate 19 H 10/08/20 23:36 Blood Pressure 198/77 10/08/20 23:36 Pulse Oximetry 99 10/08/20 23:36 MDM - General Adult MDM Narrative: Medical decision making narrative: Patient presents for sore throat along with slight cough likely viral syndrome. Patient's chest x-ray and strep are negative will do a Covid and patient is stable for discharge. She is in no distress here. She has no signs of pulmonary embolism or cardiac cause. She is return if worsening. Lab Data: Labs: Lab Results 10/08/20 Range/Units 22:50 Group A Strep Rapi d Negative (Negative) Imaging Data^: CXR: Attestation: I personally reviewed and interpreted this imaging study as follows: My impression: No acute abnormality Discharge Plan Discharge Patient Disposition: Home Clinical Impression: Acute viral syndrome Condition: Stable Prescriptions: No Action montelukast [Singulair] 10 mg tablet 10 mg PO DAILY Qty: 90 RF: 1 pantoprazole [Protonix] 40 mg tablet,delayed release (DR/EC) 40 mg PO BID Qty: 180 RF: 0 cyclobenzaprine 10 mg tablet 10 mg PO .HS PRN (Reason: muscle spasm) Qty: 7 RF: 0 hydroxyzine HCl 25 mg tablet 25 mg PO BID PRN (Reason: Anxiety) RF: 0 docusate sodium 100 mg capsule 100 mg PO PRN RF: 0 levothyroxine 100 mcg capsule 100 mcg PO DAILY RF: 0 lactulose 10 gram/15 mL solution 10 gm PO BID 7 Days Qty: 210 RF: 0 citalopram [Celexa] 20 mg tablet 20 mg PO DAILY Qty: 30 RF: 2 buspirone 15 mg tablet 15 mg PO TID Qty: 90 RF: 2 (DME) lancets [Accu-Chek Softclix Lancets] Misc See Rx Instructions .ROUTE .MEDSUPPLY Qty: 50 RF: 0 (DME) blood-glucose meter [Accu-Chek Leeann Plus Meter] Misc See Rx Instructions .ROUTE .MEDSUPPLY Qty: 1 RF: 0 (DME) GLUCOMETER Qty: 1 RF: 0 (DME) lancets [Accu-Chek Fastclix Lancet Drum] Misc See Rx Instructions .ROUTE .MEDSUPPLY Qty: 50 RF: 0 (DME) lancing device with lancets [Accu-Chek Soft Dev Lancets] Kit See Rx Instructions .ROUTE .MEDSUPPLY Qty: 100 RF: 2 (DME) pen needle, diabetic [BD Ultra-Fine Short Pen Needle] 31 gauge x 5/16 needle See Rx Instructions .ROUTE .MEDSUPPLY Qty: 100 RF: 2 indapamide 2.5 mg tablet 2.5 mg PO QAM Qty: 30 RF: 5 simvastatin 20 mg tablet 20 mg PO DAILY Qty: 30 RF: 5 amlodipine [Norvasc] 5 mg tablet 5 mg PO DAILY Qty: 30 RF: 5 losartan 50 mg tablet 50 mg PO DAILY Qty: 30 RF: 2 (DME) Accu-Chek Leeann Plus test strp Strip See Rx Instructions .ROUTE .MEDSUPPLY Qty: 100 RF: 1 Victoza 2-Solitario 0.6 mg/0.1 mL (18 mg/3 mL) pen injector 1.2 mg SUBCUT DAILY Qty: 6 RF: 0 liothyronine 5 mcg tablet 5 mcg PO DAILY RF: 0 paroxetine HCl 20 mg tablet 20 mg PO DAILY RF: 0 mupirocin 2 % ointment 1 applic TOPICAL BID Qty: 22 RF: 0 hydrocortisone 1 % cream 1 applic TOPICAL BID Qty: 14.2 RF: 0 Discharge Orders: Discharge Order (Routine); Ordered 10/08/20 Ordered By: Patricia Arroyo Referrals: Shivani Schneider FNP [Primary Care Provider] - Discharge Diet: Advance as tolerated Discharge Activity: Resume usual activity Patient Instructions: Viral Syndrome (ED) Coding Level of Care Code ED Freight Hustler for Robyn Fwd Exam Comprehensive
[2020-10-08 23:24] LABS: Rapid Strep A Test Negative (Negative)
[2020-10-08 23:36] VITALS: BP 198/77; PULSE 90; RESP 19; O2SAT 99
[2020-10-10 08:44] LABS: Coronavirus Lab Test PTC Negative
== END 2020-10-08 23:36 | disposition home or self-care (01) ==
PROVIDERS: Emergency Provider Emergency Medicine; PCP Registered Nurse
DX: B34.9 Viral infection, unspecified (principal); E11.9 Type 2 diabetes mellitus without complications; E78.5 Hyperlipidemia, unspecified; I10 Essential (primary) hypertension; Z87.891 Personal history of nicotine dependence
CPT/HCPCS: 12345; 71045; 87081; 87635; 87880; 99281; 99283

== ENCOUNTER 2020-10-13 20:37 | Emergency (ER) | payer MEDICARE, MEDICAID, SELFPAY ==
[2020-10-13 20:58] VITALS: BP 173/86; PULSE 85; RESP 18; TEMP 36.3; O2SAT 97; BMI 60.5
--- NOTE | 2020-10-13 21:06 | W.ED.SKABFB ---
HPI - Skin/Abscess/Foreign Bdy General: Chief complaint: Skin/Abscess/Foreign Body Stated complaint: RASH ALL OVER LEGS Time Seen by Provider: 10/13/20 21:05 History of Present Illness: HPI narrative: Patient is a 50-year-old female who comes to the ED with a rash over her legs. Rash started a couple days ago. She says the rash is very pruritic. She just started taking a steroid 2 days ago to help with rash. Denies any shortness of breath, wheezing, lip or tongue swelling. Denies any recent change in soaps, detergents or lotions. Patient did say she started using some triple antibiotic ointment that had sulfa in it right before rash started and she is allergic to sulfa. Associated symptoms: Deny chills, fever(s), nausea or vomiting Review of Systems Const: Denies: fever(s), chills or fatigue Eyes: Denies: change in vision or eye discomfort ENMT: Denies: throat pain, odynophagia, nasal discharge or nasal congestion Card: Denies: chest pain, palpitations, edema, swelling of feet/ankles, dyspnea on exertion or orthopnea Resp: Denies: dyspnea, productive cough or non-productive cough GI: Denies: abdominal pain, nausea, vomiting, diarrhea, constipation or hematochezia : Denies: flank pain, dysuria or hematuria Musc: Denies: neck pain, back pain or extremity swelling Skin/Breast: Reports: rash and pruritus; Denies: new lesions Neuro: Denies: headache(s), numbness in extremities or weakness in extremities PFS ED PFSH: Medical History Acute serous otitis media of left ear Anxiety Borderline intellectual functioning Controlled type 2 diabetes mellitus, without long-term current use of insulin Depression Dyslipidemia Enrolled in chronic care management Generalized anxiety disorder GERD (gastroesophageal reflux disease) Hypertension Hypothyroidism Obesity BHARAT (obstructive sleep apnea) Seizure disorder Tinnitus Surgical History History of colonoscopy with polypectomy (~09/2018) History of esophagogastroduodenoscopy (EGD) (~09/2018) History of hysterectomy with oophorectomy History of laparoscopic cholecystectomy Family History Grandmother Cancer Father Lung disease Diabetes Denies family history of Anesthesia complication Bleeding disorder Social History Smoking and tobacco status: never smoked Quit status (tobacco): has quit using tobacco Second hand smoke exposure: No Smoking risk assessment/counseling performed?: No Alcohol intake: never Desire information about alcohol rehabilitation?: No Counseling given: No Desire information about substance/drug rehabilitation?: No Counseling given: No Adopted: No Caregiver/support person: Yes Lives independently: Yes Housing: House Marital status: Single Highest education level completed: High School Graduate service: No Current occupational status: employed 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 Current occupational exposures/hazards: No Pets and animals: Yes History of recent travel: No Sexually active: Yes Ania/Caodaism: None Special ania needs: No Agree to transfusion: Yes Financial difficulty paying for basics: Not Very Hard Female Reproductive History: Date of last menstrual period: 03/19/20 Physical Exam Const: COMMON NORMALS: no acute distress, patient oriented x3 and alert GENERAL APPEARANCE: cooperative and comfortable NUTRITIONAL APPEARANCE: obese HENMT: COMMON NORMALS: normocephalic HEAD & SCALP: normocephalic MOUTH: Normal oral and palatal mucosa present THROAT: posterior oropharynx normal and uvula midline Neck/C-Spine: COMMON NORMALS: supple GENERAL: Yes normal visual inspection Resp: COMMON NORMALS: normal respiratory effort, No retractions, No use of accessory muscles and clear to auscultation bilaterally AUSCULTATION: clear to auscultation bilaterally Cardio: COMMON NORMALS: regular rate, regular rhythm, S1 normal heart sound present, S2 normal heart sound present, No gallops present (Cardio), No clicks present (Cardio), No murmurs present (Cardio) and Peripheral pulses 2+ throughout RATE: regular rate RHYTHM: regular rhythm HEART SOUNDS: S1 normal heart sound present and S2 normal heart sound present PERIPHERAL PULSES: Peripheral pulses 2+ throughout GI: COMMON NORMALS: Normal to inspection, nondistended, normoactive bowel sounds present, Soft to palpation, non-tender and no masses PALPATION: Yes Soft to palpation : COMMON NORMALS: Yes no CVA tenderness BLADDER/KIDNEY EXAM: Yes no CVA tenderness Back/Pelvis: COMMON NORMALS: no CVA tenderness Extremity: NARRATIVE EXTREMITY EXAM: Pruritic rash on right and left lower extremities. GENERAL: Yes normal exam except as noted Neuro: COMMON NORMALS: patient oriented x3 and moves all extremities SENSORIUM/ORIENTATION: Yes alert Skin: NARRATIVE SKIN EXAM: Patient has nonblanching erythemic, pruritic rash. Rash is nontender with no vesicles, purulent discharge or warmth. GENERAL SKIN EXAM: dry skin Course Vital Signs: Vital signs: Vital Signs Temperature 97.3 F L 10/13/20 20:58 Pulse Rate 85 10/13/20 20:58 Respiratory Rate 18 10/13/20 20:58 Blood Pressure 173/86 10/13/20 20:58 Pulse Oximetry 97 10/13/20 20:58 MDM - Skin/Abscess/Foreign Bdy MDM Narrative: Medical decision making narrative: Patient is a 42-year-old female comes to the ED with pruritic rash on right and left lower extremities. Patient did say she is allergic to sulfa and she started using an triple antibiotic ointment on a lesion on her abdomen right before rash started. She just started taking steroids 2 days ago. Denies any shortness of breath, wheezing, lip or tongue swelling. Patient appears in no acute distress and vitals are stable. Patient was diagnosed with a rash due to allergic reaction. She was given an IM dose of Solu-Medrol while here in the ED. She was told to stop using the triple antibiotic ointment with sulfa. I sent her home with a prescription for triamcinolone ointment and told her to continue taking her previously prescribed steroid. Follow-up with PCP in 7 to 10 days. Return ED precautions given. Patient understood and agree with plan. Discharge Plan Discharge Patient Disposition: Home Clinical Impression: Rash due to allergy Condition: Stable Prescriptions: New triamcinolone acetonide 0.1 % ointment 1 applic topical BID Qty: 453.6 RF: 0 No Action montelukast [Singulair] 10 mg tablet 10 mg PO DAILY Qty: 90 RF: 1 pantoprazole [Protonix] 40 mg tablet,delayed release (DR/EC) 40 mg PO BID Qty: 180 RF: 0 cyclobenzaprine 10 mg tablet 10 mg PO .HS PRN (Reason: muscle spasm) Qty: 7 RF: 0 hydroxyzine HCl 25 mg tablet 25 mg PO BID PRN (Reason: Anxiety) RF: 0 docusate sodium 100 mg capsule 100 mg PO PRN RF: 0 levothyroxine 100 mcg capsule 100 mcg PO DAILY RF: 0 lactulose 10 gram/15 mL solution 10 gm PO BID 7 Days Qty: 210 RF: 0 citalopram [Celexa] 20 mg tablet 20 mg PO DAILY Qty: 30 RF: 2 buspirone 15 mg tablet 15 mg PO TID Qty: 90 RF: 2 (DME) lancets [Accu-Chek Softclix Lancets] Misc See Rx Instructions .ROUTE .MEDSUPPLY Qty: 50 RF: 0 (DME) blood-glucose meter [Accu-Chek Leeann Plus Meter] Misc See Rx Instructions .ROUTE .MEDSUPPLY Qty: 1 RF: 0 (DME) GLUCOMETER Qty: 1 RF: 0 (DME) lancets [Accu-Chek Fastclix Lancet Drum] Misc See Rx Instructions .ROUTE .MEDSUPPLY Qty: 50 RF: 0 (DME) lancing device with lancets [Accu-Chek Soft Dev Lancets] Kit See Rx Instructions .ROUTE .MEDSUPPLY Qty: 100 RF: 2 (DME) pen needle, diabetic [BD Ultra-Fine Short Pen Needle] 31 gauge x 5/16 needle See Rx Instructions .ROUTE .MEDSUPPLY Qty: 100 RF: 2 indapamide 2.5 mg tablet 2.5 mg PO QAM Qty: 30 RF: 5 simvastatin 20 mg tablet 20 mg PO DAILY Qty: 30 RF: 5 amlodipine [Norvasc] 5 mg tablet 5 mg PO DAILY Qty: 30 RF: 5 (DME) Accu-Chek Leeann Plus test strp Strip See Rx Instructions .ROUTE .MEDSUPPLY Qty: 100 RF: 1 Victoza 2-Solitario 0.6 mg/0.1 mL (18 mg/3 mL) pen injector 1.2 mg SUBCUT DAILY Qty: 6 RF: 0 losartan 50 mg tablet 50 mg PO DAILY Qty: 30 RF: 0 liothyronine 5 mcg tablet 5 mcg PO DAILY RF: 0 paroxetine HCl 20 mg tablet 20 mg PO DAILY RF: 0 mupirocin 2 % ointment 1 applic TOPICAL BID Qty: 22 RF: 0 hydrocortisone 1 % cream 1 applic TOPICAL BID Qty: 14.2 RF: 0 Discharge Orders: Discharge ED (Routine); Ordered 10/13/20 Ordered By: Khris Craig Referrals: Shivani Schneider FNP [Primary Care Provider] - Discharge Diet: Regular Discharge Activity: Resume usual activity Patient Instructions: Urticaria (ED) Activity Restrictions/Additional Instructions: Follow-up with medical provider as directed. Stop using the triple antibiotic ointment with sulfa in it. Continue taking previously prescribed steroid. I am sending you home with a prescription for steroid ointment to apply on rash as well. Take medications as prescribed. Return to the ER or your medical provider if condition worsens. Please read and understand discharge instructions. If any questions, please ask. Coding Level of Care Code ED Presentation Designer for Robyn Fwd Exam Comprehensive
== END 2020-10-13 21:48 | disposition home or self-care (01) ==
PROVIDERS: Emergency Provider Physician Assistant; PCP Registered Nurse
DX: R21 Rash and other nonspecific skin eruption (principal); T78.40XA Allergy, unspecified, initial encounter; E11.9 Type 2 diabetes mellitus without complications; E78.5 Hyperlipidemia, unspecified; I10 Essential (primary) hypertension; Z87.891 Personal history of nicotine dependence
CPT/HCPCS: 12345; 96372; 99281; 99283; J2930

== ENCOUNTER 2020-10-19 21:43 | Emergency (ER) | payer MEDICARE, MEDICAID, SELFPAY ==
[2020-10-19 21:45] VITALS: BP 156/80; PULSE 94; RESP 18; TEMP 36.4; BMI 60.5
--- NOTE | 2020-10-19 21:59 | USCV_ITS ---
Nayla Trujillo Age: 50 Gender: F : 1970 Exam Date: 10/19/2020 22:38 Ordering Phys: Priya Ybarra Technologist: Mickey Gracia Exam Location: [facility] – [place]_ Indication: LT LEG SWELLING AND PAIN HISTORY: Lower extremity swelling. Lower extremity pain. PROCEDURES: Venous duplex imaging was performed in only the left lower extremity. The following venous structures were evaluated: common femoral vein, profunda vein, proximal portion of the greater saphenous vein, superficial femoral vein, and the popliteal vein. In addition, the posterior tibial and peroneal trunk were evaluated. FINDINGS: Normal 2-D Doppler and augmentation and compressibility throughout the lower extremity venous structures. Additional imaging through the proximal calf veins also reveals no thrombus. Limited evaluation of the greater saphenous vein is patent with no thrombus.. The veins were found to be easily compressible with spontaneous blood flow. Non pulsatile flow pattern. CONCLUSIONS No evidence of DVT in the above-mentioned identifiable veins. Dr Kaycee Britton MD [facility] (Electronically Signed) Final Date: 20 October 2020 19:51 S
--- NOTE | 2020-10-19 22:00 | ED_ITS ---
HPI - Female Genitourinary General: Chief complaint: Urogenital-Female Stated complaint: UTI? Time Seen by Provider: 10/19/20 21:44 Source: patient Mode of arrival: ambulatory Limitations: no limitations History of Present Illness: HPI Narrative: Pleasant 50-year-old female patient presents to the emergency department with several complaints. She reports left lower extremity pain, left anterior and posterior lower leg, started this evening. She reports left leg swelling for several months. Treated for erythematous rash to the left lower extremity recently, states rash is improving but pain is new. She is also complaining of itching to the periarea that started several days ago, increased urinary frequency, denies pain with urination. She reports blood sugar elevation, 220; normal CBG stated 180s. She denies fever chills abdominal pain nausea vomiting diarrhea. MD elicited complaint: UTI Pertinent past history: other (History of UTI with similar symptoms) Location of symptoms: external genitalia and urethra Severity: mild Vaginal discharge: none Vaginal bleeding: none Urinary symptoms: Frequency Associated symptoms: Reports no associated symptoms; Deny abdominal pain, headache(s) or nausea Treatment prior to arrival: none Patient : No Date of Last Menstrual Period: 03/19/20 Review of Systems General: Reports: 10 or more systems reviewed and unremarkable except in HPI and below Const: Denies: fever(s), chills or diaphoresis Eyes: Denies: blurry vision or eye redness ENMT: Denies: throat pain, dental pain or disequilibrium Card: Denies: chest pain, palpitations or irregular heart rhythm Resp: Denies: dyspnea, productive cough, non-productive cough or wheezing GI: Denies: abdominal pain, nausea or vomiting : Denies: difficulty voiding or dysuria Musc: Reports: extremity pain (LLE), extremity swelling (LLE) and muscle cramps (LLE); Denies: neck pain, back pain or muscle weakness Skin/Breast: Denies: rash or pruritus Neuro: Denies: headache(s), weakness in extremities or behavioral changes Psych: Denies: anxiety or depression Red/Lymph: Denies: easy bruising [facility] ED PFSH: Medical History (Updated 10/19/20 @ 23:42 by IRIS Pyle) Acute serous otitis media of left ear Anxiety Borderline intellectual functioning Controlled type 2 diabetes mellitus, without long-term current use of insulin Depression Dyslipidemia Enrolled in chronic care management Generalized anxiety disorder GERD (gastroesophageal reflux disease) Hypertension Hypothyroidism Obesity BHARAT (obstructive sleep apnea) Seizure disorder Tinnitus Surgical History History of colonoscopy with polypectomy (~09/2018) History of esophagogastroduodenoscopy (EGD) (~09/2018) History of hysterectomy with oophorectomy History of laparoscopic cholecystectomy Family History Grandmother Cancer Father Lung disease Diabetes Denies family history of Anesthesia complication Bleeding disorder Social History Smoking and tobacco status: never smoked Quit status (tobacco): has quit using tobacco Second hand smoke exposure: No Smoking risk assessment/counseling performed?: No Alcohol intake: never Desire information about alcohol rehabilitation?: No Counseling given: No Desire information about substance/drug rehabilitation?: No Counseling given: No Adopted: No Caregiver/support person: Yes Lives independently: Yes Housing: House Marital status: Single Highest education level completed: High School Graduate service: No Current occupational status: employed 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 Current occupational exposures/hazards: No Pets and animals: Yes History of recent travel: No Sexually active: Yes Ania/Rastafari: None Special ania needs: No Agree to transfusion: Yes Financial difficulty paying for basics: Not Very Hard Female Reproductive History: Date of last menstrual period: 03/19/20 Physical Exam Const: COMMON NORMALS: no acute distress, patient oriented x3, healthy appearing, alert and well nourished EXAM LIMITATIONS: no altered mental status GENERAL APPEARANCE: cooperative, comfortable, well kempt and well hydrated NUTRITIONAL APPEARANCE: obese ORIENTATION/CONSCIOUSNESS: Yes awake, Yes oriented to person, Yes oriented to place and Yes oriented to time HENMT: COMMON NORMALS: normocephalic, Normal external nose present and moist oral mucous membranes HEAD & SCALP: normocephalic NOSE: Normal external n ose present Eye: COMMON NORMALS: Equal, round and reactive pupils present and EOMs intact bilaterally GENERAL EYE: appearance normal, both eyes and all related structures PUPIL: Yes Equal, round and reactive pupils present Neck/C-Spine: COMMON NORMALS: full ROM and no lymphadenopathy GENERAL: Yes normal visual inspection and Yes trachea midline CERVICAL SPINE: Yes cervical ROM normal Lymph: LYMPHATIC: no lymphadenopathy noted Chest: COMMONS NORMALS: normal inspection of the chest Resp: COMMON NORMALS: normal respiratory effort and clear to auscultation bilaterally AUSCULTATION: clear to auscultation bilaterally Cardio: COMMON NORMALS: regular rate, regular rhythm, S1 normal heart sound present, S2 normal heart sound present and Peripheral pulses 2+ throughout RATE: regular rate RHYTHM: regular rhythm HEART SOUNDS: S1 normal heart sound present and S2 normal heart sound present PERIPHERAL PULSES: Peripheral pulses 2+ throughout GI: COMMON NORMALS: Normal to inspection, nondistended, normoactive bowel sounds present, Soft to palpation and non-tender INSPECTION: Yes normal to inspection, No abdominal wall ecchymosis, No abdominal distension, Yes central obesity and Yes Abdominal panniculus present AUSCULTATION: Yes normoactive bowel sounds PALPATION: Yes Soft to palpation, No Tenderness to palpation present (GI), No Guarding due to palpation present (GI), No Rigid due to palpation and No Rebound tenderness present : COMMON NORMALS: Yes no CVA tenderness BLADDER/KIDNEY EXAM: Yes no CVA tenderness Back/Pelvis: COMMON NORMALS: no CVA tenderness, thoracic and lumbar spine normal to inspection, no thoracic nor lumbar tenderness, thoraco-lumbar ROM normal and straight leg raise negative bilaterally Extremity: COMMON NORMALS: normal to inspection and capillary refill normal GENERAL: Yes normal exam except as noted RIGHT LOWER EXTREMITY: Yes lower leg Right lower leg: Yes inspection (anterior and posterior edema, localized to the proximal knee to mid LLE), Yes palpation (pain posterior and anterior LLe) and Yes neurovascular exam (distally intact) Neuro: COMMON NORMALS: patient oriented x3 and no focal motor deficits SENSORIUM/ORIENTATION: Yes alert, Yes oriented to person, Yes oriented to place and Yes oriented to time Psych: COMMON NORMALS: mental status grossly normal, Normal thought process present and cooperative APPEARANCE: Yes well kempt ACTIVITY/MOTOR BEHAVIOR: Yes appropriate eye contact THOUGHT PROCESS: Normal thought process present Skin: COMMON NORMALS: no rashes or lesions noted and turgor normal GENERAL SKIN EXAM: no rashes or lesions noted and turgor normal Course Vital Signs: Vital signs: Vital Signs Temperature 97.6 F 10/19/20 21:45 Pulse Rate 91 10/19/20 23:00 Respiratory Rate 17 10/19/20 23:00 Blood Pressure 151/72 10/19/20 23:00 Pulse Oximetry 93 10/19/20 23:00 MDM - Female Lab Data: Labs: Lab Results 10/19/20 Range/Units 22:30 Urine Color Yellow (Yellow) Urine Appearance Clear (CLEAR) Urine pH 5.0 (5-7) Ur Specific Gravit y 1.010 (1.005-1.030) Urine Protein 1+ H (Negative) Urine Glucose (UA) 4+ H (Normal) Urine Ketones Negative (Negative) Urine Blood 3+ H (Negative) Urine Nitrate Negative (Negative) Urine Bilirubin Neg (Negative) Urine Urobilinogen Norm (Negative) mg/dL Ur Leukocyte Cleo ase Trace H (Negative) Urine RBC 10-15 H (0-2) /hpf Urine WBC None (0-5) /hpf Ur Squamous Epith Cells None (0-5) /hpf Amorphous Sediment Not Reportable Urine Bacteria Trace (NONE) /hpf Imaging Data: US: My impression: LLE without DVT - Discharge Plan Discharge Patient Disposition: Home Clinical Impression: Left leg swelling UTI (urinary tract infection) Qualifiers: Urinary tract infection type: acute cystitis Hematuria presence: with hematuria Qualified Code(s): N30.01 - Acute cystitis with hematuria Condition: Stable Prescriptions: New Macrobid 100 mg capsule 100 mg PO BID 5 Days Qty: 10 RF: 0 No Action montelukast [Singulair] 10 mg tablet 10 mg PO DAILY Qty: 90 RF: 1 pantoprazole [Protonix] 40 mg tablet,delayed release (DR/EC) 40 mg PO BID Qty: 180 RF: 0 cyclobenzaprine 10 mg tablet 10 mg PO .HS PRN (Reason: muscle spasm) Qty: 7 RF: 0 hydroxyzine HCl 25 mg tablet 25 mg PO BID PRN (Reason: Anxiety) RF: 0 docusate sodium 100 mg capsule 100 mg PO PRN RF: 0 levothyroxine 100 mcg capsule 100 mcg PO DAILY RF: 0 lactulose 10 gram/15 mL solution 10 gm PO BID 7 Days Qty: 210 RF: 0 citalopram [Celexa] 20 mg tablet 20 mg PO DAILY Qty: 30 RF: 2 buspirone 15 mg tablet 15 mg PO TID Qty: 90 RF: 2 (DME) lancets [Accu-Chek Softclix Lancets] Misc See Rx Instructions .ROUTE .MEDSUPPLY Qty: 50 RF: 0 (DME) blood-glucose meter [Accu-Chek Leeann Plus Meter] Misc See Rx Instructions .ROUTE .MEDSUPPLY Qty: 1 RF: 0 (DME) GLUCOMETER Qty: 1 RF: 0 (DME) lancets [Accu-Chek Fastclix Lancet Drum] Misc See Rx Instructions .ROUTE .MEDSUPPLY Qty: 50 RF: 0 (DME) lancing device with lancets [Accu-Chek Soft Dev Lancets] Kit See Rx Instructions .ROUTE .MEDSUPPLY Qty: 100 RF: 2 (DME) pen needle, diabetic [BD Ultra-Fine Short Pen Needle] 31 gauge x 5/16 needle See Rx Instructions .ROUTE .MEDSUPPLY Qty: 100 RF: 2 indapamide 2.5 mg tablet 2.5 mg PO QAM Qty: 30 RF: 5 simvastatin 20 mg tablet 20 mg PO DAILY Qty: 30 RF: 5 amlodipine [Norvasc] 5 mg tablet 5 mg PO DAILY Qty: 30 RF: 5 (DME) Accu-Chek Leeann Plus test strp Strip See Rx Instructions .ROUTE .MEDSUPPLY Qty: 100 RF: 1 Victoza 2-Solitario 0.6 mg/0.1 mL (18 mg/3 mL) pen injector 1.2 mg SUBCUT DAILY Qty: 6 RF: 0 losartan 50 mg tablet 50 mg PO DAILY Qty: 30 RF: 0 liothyronine 5 mcg tablet 5 mcg PO DAILY RF: 0 paroxetine HCl 20 mg tablet 20 mg PO DAILY RF: 0 triamcinolone acetonide 0.1 % ointment 1 applic topical BID Qty: 453.6 RF: 0 mupirocin 2 % ointment 1 applic TOPICAL BID Qty: 22 RF: 0 hydrocortisone 1 % cream 1 applic TOPICAL BID Qty: 14.2 RF: 0 Discharge Orders: Discharge ED (Routine); Ordered 10/19/20 Ordered By: Priya Ybarra Referrals: Shivani Schneider FNP [Primary Care Provider] - Discharge Diet: Usual diet Discharge Activity: Resume usual activity Patient Instructions: Urinary Tract Infection in Women (ED), Leg Edema (ED), Dysuria (ED) Activity Restrictions/Additional Instructions: Take antibiotics until all gone Follow-up with your primary care provider in 1 week to ensure urinary tract infection has resolved Ultrasound of the left lower extremity completed tonight was negative for deep vein thrombosis, follow-up with your primary care provider for further e valuation. Coding Level of Care Code ED Monument Erector for Robyn Fwd Exam Comprehensive
[2020-10-19 22:24] VITALS: BP 153/81; PULSE 98; RESP 16; O2SAT 95
[2020-10-19 22:30] VITALS: BP 136/71; PULSE 98; RESP 16; O2SAT 93
[2020-10-19 23:00] VITALS: BP 151/72; PULSE 91; RESP 17; O2SAT 93
[2020-10-19 23:07] LABS: Urine Appearance Clear (CLEAR); Urine Color Yellow (Yellow)
[2020-10-19 23:08] LABS: Bilirubin Urine Neg (Negative); Blood Urine 3+ (Negative); Glucose Urine UA 4+ (Normal); Ketones Urine Negative (Negative); Nitrate Urine Negative (Negative); Protein Urine 1+ (Negative); Urobilinogen Urine Norm (Negative)
[2020-10-19 23:09] LABS: Add Urine Culture? No; Add Urine Microscopic? YES; Bacteria Urine TRACE /hpf; Leukocyte Esterase Urine Trace (Negative)
[2020-10-20] MEDS: nitrofurantoin SR (BID) 100 mg Capsule PO (00:03)
[2020-10-20 00:17] VITALS: BP 175/80; PULSE 88; O2SAT 96
== END 2020-10-20 00:17 | disposition home or self-care (01) ==
PROVIDERS: Emergency Provider Nurse Practitioner Family; PCP Registered Nurse
DX: M79.89 Other specified soft tissue disorders (principal); N30.01 Acute cystitis with hematuria; E11.9 Type 2 diabetes mellitus without complications; E78.5 Hyperlipidemia, unspecified; I10 Essential (primary) hypertension; Z87.891 Personal history of nicotine dependence
CPT/HCPCS: 12345; 81001; 93971; 99281; 99283

== ENCOUNTER 2020-10-24 10:04 | Emergency (ER) | payer MEDICARE, MEDICAID, SELFPAY ==
[2020-10-24 10:06] VITALS: BP 111/82; PULSE 123; RESP 20; TEMP 36.3; O2SAT 96; BMI 56.9
--- NOTE | 2020-10-24 10:19 | ED_ITS ---
HPI - Female Genitourinary General: Chief complaint: Urogenital-Female Stated complaint: Blood in Urine/N,V Time Seen by Provider: 10/24/20 10:09 Source: patient Mode of arrival: ambulatory Limitations: no limitations History of Present Illness: HPI Narrative: Patient comes in today for complaints of nausea with blood in the urine. Patient reports poor oral intake yesterday. Patient noted blood in her urine this morning when she went pee. Patient reports no previous history of significant urinary tract infections or renal stones. Patient has a history of low morbid obesity, cellulitis, hypothyroidism, GERD, anxiety disorder, type 2 diabetes, hypertension. Date of Last Menstrual Period: 03/19/20 Review of Systems General: Reports: 10 or more systems reviewed and unremarkable except in HPI and below : Reports: hematuria PFSH ED PFSH: Medical History (Updated 10/24/20 @ 11:55 by PIPPA Arango) Acute serous otitis media of left ear Anxiety Borderline intellectual functioning Controlled type 2 diabetes mellitus, without long-term current use of insulin Depression Dyslipidemia Enrolled in chronic care management Generalized anxiety disorder GERD (gastroesophageal reflux disease) Hypertension Hypothyroidism Obesity BHARAT (obstructive sleep apnea) Seizure disorder Tinnitus Surgical History History of colonoscopy with polypectomy (~09/2018) History of esophagogastroduodenoscopy (EGD) (~09/2018) History of hysterectomy with oophorectomy History of laparoscopic cholecystectomy Family History Grandmother Cancer Father Lung disease Diabetes Denies family history of Anesthesia complication Bleeding disorder Social History Smoking and tobacco status: never smoked Quit status (tobacco): has quit using tobacco Second hand smoke exposure: No Smoking risk assessment/counseling performed?: No Alcohol intake: never Desire information about alcohol rehabilitation?: No Counseling given: No Desire information about substance/drug rehabilitation?: No Counseling given: No Adopted: No Caregiver/support person: Yes Lives independently: Yes Housing: House Marital status: Single Highest education level completed: High School Graduate service: No Current occupational status: employed 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 Current occupational exposures/hazards: No Pets and animals: Yes History of recent travel: No Sexually active: Yes Ania/Judaism: None Special ania needs: No Agree to transfusion: Yes Financial difficulty paying for basics: Not Very Hard Female Reproductive History: Date of last menstrual period: 03/19/20 Physical Exam Const: COMMON NORMALS: no acute distress and patient oriented x3 GENERAL APPEARANCE: cooperative HENMT: COMMON NORMALS: normocephalic and Normal external nose present HEAD & SCALP: normal to inspection and normocephalic NOSE: Normal external nose present MOUTH: Normal oral and palatal mucosa present Eye: GENERAL EYE: appearance normal, both eyes and all related structures Neck/C-Spine: COMMON NORMALS: full ROM Chest: COMMONS NORMALS: normal inspection of the chest Resp: COMMON NORMALS: normal respiratory effort EFFORT & INSPECTION: Yes able to speak in complete sentences Cardio: COMMON NORMALS: regular rate and regular rhythm RATE: regular rate RHYTHM: regular rhythm GI: COMMON NORMALS: non-tender : COMMON NORMALS: Yes no CVA tenderness BLADDER/KIDNEY EXAM: Yes no CVA tenderness Back/Pelvis: COMMON NORMALS: no CVA tenderness and thoracic and lumbar spine normal to inspection Extremity: COMMON NORMALS: normal to inspection Neuro: COMMON NORMALS: patient oriented x3 and moves all extremities Psych: COMMON NORMALS: mental status grossly normal and cooperative Skin: COMMON NORMALS: no rashes or lesions noted GENERAL SKIN EXAM: no rashes or lesions noted Course Vital Signs: Vital signs: Vital Signs Temperature 97.3 F L 10/24/20 10:06 Pulse Rate 92 10/24/20 10:42 Respiratory Rate 24 H 10/24/20 10:42 Blood Pressure 148/102 10/24/20 10:42 Pulse Oximetry 92 10/24/20 10:42 MDM - Female MDM Narrative: Medical decision making narrative: Patient comes in today for concerns of urine with blood in it. Patient reports not feeling well yesterday and feeling nauseous. Patient reports poor oral intake. Respirations were even lungs were clear to auscultation. Abdomen soft nontender. No CVA tenderness. Differential diagnosis includes renal calculi, hematuria, cystitis. Laboratory values noted white blood cell count 22,000. Creatinine was 1.9. Glucose was 290. Sodium was 126. CT scan of the abdomen pelvis noted no renal calculi. Urinalysis showed a large amount of red blood cells and white blood cells although there was squamous cell contamination suggesting poor urine collection. Patient was hydrated with 2 L of IV fluids started on ceftriaxone with recommendations continue with oral antibiotics and follow-up with primary care. Patient reported understanding of care plan and need for follow-up. Lab Data: Labs: Lab Results 10/24/20 10/24/20 10/24/20 Range/Units 10:36 11:13 11:13 WBC 22.1 H (4.0-10.0) 10^3/ uL RBC 5.06 (4.1-5.3) 10^6/u L Hgb 14.4 (11.5-15.3) g/dL Hct 44.9 (37.0-47.0) % MCV 88.7 (81-99) fL MCH 28.5 (28.0-34.0) pg MCHC 32.1 (30.0-36.0) g/dL RDW 13.3 (12.1-15.1) % Plt Count 244 (130-400) 10^3/c mm MPV 9.4 (7.4-10.4) fL Neut % (Auto) 89.4 % Lymph % (Auto) 5.0 % Nuckolls % (Auto) 4.7 % Eos % (Auto) 0.0 % Baso % (Auto) 0.3 % Neut # (Auto) 19.79 H (1.8-7.7) 10^3/u L Lymph # (Auto) 1.1 (0.8-4.8) 10^3/u L Nuckolls # (Auto) 1.0 H (0.2-0.9) 10^3/u L Eos # (Auto) 0.0 (0.0-0.8) 10^3/u L Baso # (Auto) 0.1 (0.0-0.1) 10^3/u L Nucleated RBC % (a uto) 0 % Nucleated RBCs # 0.0 /100WBC Sodium 126 L (136-145) mmol/L Potassium 3.7 (3.5-5.1) mmol/L Chloride 87 L (98-107) mmol/L Carbon Dioxide 26 (22-29) mmol/L Anion Gap 16.7 (5-19) BUN 27 H (6-20) mg/dL Creatinine 1.9 H (0.5-0.9) mg/dL GFR Calculation 28.2 L (90-130) mL/min Glucose 296 H (65-115) mg/dL Calculated Osmolal ity 278 L (285-295) mOsm/k g Calcium 9.4 (8.5-10.5) mg/dL Total Bilirubin 0.8 (0.15-1.2) mg/dL AST 13 (0-32) U/L ALT 12 (0-33) U/L Alkaline Phosphata se 80 (35-105) IU/L Total Protein 8.1 (6.6-8.7) g/dL Albumin 3.4 L (3.5-5.2) g/dL Globulin 4.7 H (1.3-4.6) g/dL Urine Color Red (Yellow) Urine Appearance Cloudy (CLEAR) Urine pH 5.0 (5-7) Ur Specific Gravit y 1.015 (1.005-1.030) Urine Protein 3+ H (Negative) Urine Glucose (UA) 4+ H (Normal) Urine Ketones 1+ H (Negative) Urine Blood 3+ H (Negative) Urine Nitrate Negative (Negative) Urine Bilirubin Neg (Negative) Urine Urobilinogen Norm (Negative) mg/dL Ur Leukocyte Cleo ase 2+ H (Negative) Urine RBC >100 H (0-2) /hpf Urine WBC 40-55 H (0-5) /hpf Ur Squamous Epith Cells 25-40 H (0-5) /hpf Amorphous Sediment Not Reportable Urine Bacteria 2+ H (NONE) /hpf Urine Mucus 1+ /hpf Discharge Plan Discharge Patient Disposition: Home Clinical Impression: UTI (urinary tract infection) Qualifiers: Urinary tract infection type: acute cystitis Hematuria presence: with hematuria Qualified Code(s): N30.01 - Acute cystitis with hematuria Condition: Stable Prescriptions: New cephalexin 500 mg capsule 500 mg PO QID 7 Days Qty: 28 RF: 0 ondansetron HCl 4 mg tablet 4 mg PO Q8H 3 Days Qty: 9 RF: 0 No Action montelukast [Singulair] 10 mg tablet 10 mg PO DAILY Qty: 90 RF: 1 pantoprazole [Protonix] 40 mg tablet,delayed release (DR/EC) 40 mg PO BID Qty: 180 RF: 0 cyclobenzaprine 10 mg tablet 10 mg PO .HS PRN (Reason: muscle spasm) Qty: 7 RF: 0 docusate sodium 100 mg capsule 100 mg PO PRN RF: 0 levothyroxine 100 mcg capsule 100 mcg PO DAILY RF: 0 lactulose 10 gram/15 mL solution 10 gm PO BID 7 Days Qty: 210 RF: 0 citalopram [Celexa] 20 mg tablet 20 mg PO DAILY Qty: 30 RF: 2 buspirone 15 mg tablet 15 mg PO TID Qty: 90 RF: 2 (DME) lancets [Accu-Chek Softclix Lancets] Misc See Rx Instructions .ROUTE .MEDSUPPLY Qty: 50 RF: 0 (DME) blood-glucose meter [Accu-Chek Leeann Plus Meter] Misc See Rx Instructions .ROUTE .MEDSUPPLY Qty: 1 RF: 0 (DME) GLUCOMETER Qty: 1 RF: 0 (DME) lancets [Accu-Chek Fastclix Lancet Drum] Misc See Rx Instructions .ROUTE .MEDSUPPLY Qty: 50 RF: 0 (DME) lancing device with lancets [Accu-Chek Soft Dev Lancets] Kit See Rx Instructions .ROUTE .MEDSUPPLY Qty: 100 RF: 2 (DME) pen needle, diabetic [BD Ultra-Fine Short Pen Needle] 31 gauge x 5/16 needle See Rx Instructions .ROUTE .MEDSUPPLY Qty: 100 RF: 2 indapamide 2.5 mg tablet 2.5 mg PO QAM Qty: 30 RF: 5 simvastatin 20 mg tablet 20 mg PO DAILY Qty: 30 RF: 5 amlodipine [Norvasc] 5 mg tablet 5 mg PO DAILY Qty: 30 RF: 5 (DME) Accu-Chek Leeann Plus test strp Strip See Rx Instructions .ROUTE .MEDSUPPLY Qty: 100 RF: 1 losartan 50 mg tablet 50 mg PO DAILY Qty: 30 RF: 0 liothyronine 5 mcg tablet 5 mcg PO DAILY RF: 0 paroxetine HCl 20 mg tablet 20 mg PO DAILY RF: 0 triamcinolone acetonide 0.1 % ointment 1 applic topical BID Qty: 453.6 RF: 0 Tylenol Extra Strength 500 mg Tablet 1,000 mg PO PRN RF: 0 insulin lispro 100 unit/mL insulin pen See Rx Instructions .ROUTE .COMPLEX RF: 0 Victoza 3-Solitario 0.6 mg/0.1 mL (18 mg/3 mL) pen injector 1.8 mg SUBCUT DAILY@20 RF: 0 Jardiance 10 mg Tablet 10 mg PO DAILY RF: 0 mupirocin 2 % ointment 1 applic TOPICAL BID Qty: 22 RF: 0 hydrocortisone 1 % cream 1 applic TOPICAL BID Qty: 14.2 RF: 0 Discharge Orders: Discharge ED (Routine); Ordered 10/24/20 Ordered By: Ash Burton Referrals: Shivani Schneider FNP [Primary Care Provider] - Discharge Diet: Usual diet Discharge Activity: Increase activity as tolerated Patient Instructions: Urinary Tract Infection in Women (ED) Activity Restrictions/Additional Instructions: Drink plenty of water. Medications as directed. Follow-up with primary care in 3 days for recheck. Return to the emergency department for new concerns. Coding Level of Care Code ED Flame Gouger for Robyn Fwd Exam Comprehensive
[2020-10-24 10:42] VITALS: BP 148/102; PULSE 92; RESP 24; O2SAT 92
[2020-10-24 10:55] LABS: Blood Urine 3+ (Negative); Glucose Urine UA 4+ (Normal); Ketones Urine 1+ (Negative); Protein Urine 3+ (Negative); Specific Gravity, Urine 1.015 (1.005-1.030); Urine Appearance Cloudy (CLEAR); Urine Color Red (Yellow)
[2020-10-24 10:56] LABS: Add Urine Microscopic? YES; Bilirubin Urine Neg (Negative); Leukocyte Esterase Urine 2+ (Negative); Nitrate Urine Negative (Negative); Urobilinogen Urine Norm (Negative)
[2020-10-24 11:10] LABS: Add Urine Culture? No; Bacteria Urine 2+ /hpf; Mucus Urine 1+ /hpf; RBC Urine >100 /hpf (0-2); Squamous Epithelial Cell Urine 25-40 /hpf (0-5); WBC Urine 40-55 /hpf (0-5)
--- NOTE | 2020-10-24 11:12 | CT_ITS ---
WS: [id number] CT ABDOMEN PELVIS TECHNIQUE: Noncontrast CT of the abdomen and pelvis with coronal and sagittal reformatted images. CLINICAL INFORMATION: hematuria COMPARISON: CT May 30, 2020 DLP: 2673.[address] scans at [facility] use at least one of these dose optimization techniques: automat ed exposure control; mA and/or kV adjustment per patient size (includes targeted exams where dose is matched to clinical indication); or iterative reconstruction. FINDINGS: Normal noncontrast liver. Cholecystectomy clips. Noncontrast spleen is normal. Normal GE junction. Aiyana ng bases are well aerated. Bibasilar atelectasis. Noncalcified nodule in the right lower lobe near th e fissure measuring 4 mm. Additional noncalcified nodule in the right middle lobe measuring 5 mm. Fatty atrophy of the pancreas. Adrenal glands are normal. No hydronephrosis in either kidney. Normal caliber abdominal aorta. No obstructing renal or ureteral calculi. Sigmoid diverticulosis. No evidence of acute diverticulitis. No free fluid in the abdomen or pelvis. Normal lumbar spine. CT/CT kidney stone [id number] IMPRESSION: 1. No acute abdominal or pelvic findings. 2. No hydronephrosis. No obstructing renal or ureteral calculi. 3. No free fluid in the abdomen or pelvis. 4. Prior cholecystectomy and hysterectomy. 5. Sigmoid diverticulosis. No evidence of acute diverticulitis. 6. A few subcentimeter noncalcified nodules in the right lower lobe and right middle lobe. Recommend 6 month follow-up.
[2020-10-24 11:21] LABS: Basophils # 0.1 10^3/uL (0.0-0.1); Basophils % 0.3 %; Hematocrit 44.9 % (37.0-47.0); Hemoglobin 14.4 g/dL (11.5-15.3); Lymphocytes # 1.1 10^3/uL (0.8-4.8); Mean Corpuscular HGB Conc 32.1 g/dL (30.0-36.0); Mean Corpuscular Hemoglobin 28.5 pg (28.0-34.0); Mean Corpuscular Volume 88.7 fL (81-99); Mean Platelet Volume 9.4 fL (7.4-10.4); Monocytes % 4.7 %; Neutrophils # 19.79 10^3/uL (1.8-7.7); Neutrophils % 89.4 %; Nucleated Red Blood Cells % 0 %; Platelet Count 244 10^3/cmm (130-400); Red Blood Count 5.06 10^6/uL (4.1-5.3); Red Cell Distribution Width 13.3 % (12.1-15.1); White Blood Count 22.1 10^3/uL (4.0-10.0)
[2020-10-24 11:44] LABS: Alanine Aminotransferase 12 U/L (0-33); Albumin Level 3.4 g/dL (3.5-5.2); Alkaline Phosphatase 80 IU/L (35-105); Aspartate Amino Transferase 13 U/L (0-32); Blood Urea Nitrogen 27 mg/dL (6-20); Calcium 9.4 mg/dL (8.5-10.5); Carbon Dioxide 26 mmol/L (22-29); Chloride 87 mmol/L (98-107); Globulin 4.7 g/dL (1.3-4.6); Glomerular Filtration Rate 28.2 mL/min (90-130); Glucose 296 mg/dL (65-115); Osmolality Calculated 278 mOsm/kg (285-295); Sodium 126 mmol/L (136-145); Total Bilirubin 0.8 mg/dL (0.15-1.2); Total Protein 8.1 g/dL (6.6-8.7)
[2020-10-24 11:45] LABS: Anion Gap 16.7 (5-19); Potassium 3.7 mmol/L (3.5-5.1)
--- NOTE | 2020-10-24 13:12 | PC.NURSE ---
PT CALLED TO RETURN TO ED FOR ANTIBIOTIC SHOT, NO ANSWER , LEFT MESSAGE. MED ORDER CHANGED TO IM PER ANGELA CANALES CIGARETTE MAKING MACHINE OPERATOR. ROCEPHIN VIAL WITH CHARGE NURSE AT THIS TIME.
[2020-10-24 13:14] VITALS: BP 160/75; PULSE 74; RESP 18; O2SAT 96
[2020-10-24] MEDS: cefTRIAXone 2,000 mg SDV 2000 MG (17:28)
== END 2020-10-24 13:16 | disposition home or self-care (01) ==
PROVIDERS: Emergency Provider Nurse Practitioner Family; PCP Registered Nurse
DX: N30.01 Acute cystitis with hematuria (principal); Z79.4 Long term (current) use of insulin; E11.9 Type 2 diabetes mellitus without complications; E78.5 Hyperlipidemia, unspecified; I10 Essential (primary) hypertension; Z87.891 Personal history of nicotine dependence
CPT/HCPCS: 12345; 36415; 74176; 80053; 81001; 85025; 96365; 99281; 99283; J0696

== ENCOUNTER 2020-10-26 21:14 | Emergency (ER) | payer MEDICARE, MEDICAID, SELFPAY ==
[2020-10-26 21:28] VITALS: BP 138/87; PULSE 85; RESP 14; TEMP 36.3; O2SAT 98; BMI 56.0
--- NOTE | 2020-10-26 21:44 | ED_ITS ---
HPI - Skin/Abscess/Foreign Bdy General: Chief complaint: Skin/Abscess/Foreign Body Stated complaint: Rash on double belly Time Seen by Provider: 10/26/20 21:24 History of Present Illness: HPI narrative: Patient has redness to her skin folds belly that she is not sure for how long they have been present does have slight drainage on the left side at times she is MD complaint: other (Rash) Onset (ago): unknown Tetanus up to date: yes Severity: mild Severity scale (1-10): 1 Quality: burning, pruritic and other Relieving factors: none Exacerbating factors: none Context: none Associated symptoms: Reports no associated symptoms; Deny chills, fever(s), nausea or vomiting Review of Systems Const: Denies: fever(s), chills or body aches Eyes: Denies: change in vision or blurry vision ENMT: Denies: throat pain or nasal congestion Card: Denies: chest pain or dyspnea on exertion Resp: Denies: dyspnea, productive cough or non-productive cough GI: Denies: abdominal pain, nausea or vomiting Musc: Denies: extremity pain Skin/Breast: Reports: rash (To skin folds lower belly) Neuro: Denies: headache(s) Psych: Denies: anxiety or depression Red/Lymph: Denies: easy bruising PFSH ED PFSH: Medical History (Updated 10/26/20 @ 21:44 by PIPPA Ruiz) Acute serous otitis media of left ear Anxiety Borderline intellectual functioning Controlled type 2 diabetes mellitus, without long-term current use of insulin Depression Dyslipidemia Enrolled in chronic care management Generalized anxiety disorder GERD (gastroesophageal reflux disease) Hypertension Hypothyroidism Obesity BHARAT (obstructive sleep apnea) Seizure disorder Tinnitus Surgical History History of colonoscopy with polypectomy (~09/2018) History of esophagogastroduodenoscopy (EGD) (~09/2018) History of hysterectomy with oophorectomy History of laparoscopic cholecystectomy Family History Grandmother Cancer Father Lung disease Diabetes Denies family history of Anesthesia complication Bleeding disorder Social History Smoking and tobacco status: never smoked Quit status (tobacco): has quit using tobacco Second hand smoke exposure: No Smoking risk assessment/counseling performed?: No Alcohol intake: never Desire information about alcohol rehabilitation?: No Counseling given: No Desire information about substance/drug rehabilitation?: No Counseling given: No Adopted: No Caregiver/support person: Yes Lives independently: Yes Housing: House Marital status: Single Highest education level completed: High School Graduate service: No Current occupational status: employed 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 Current occupational exposures/hazards: No Pets and animals: Yes History of recent travel: No Sexually active: Yes Ania/Pentecostalism: None Special ania needs: No Agree to transfusion: Yes Financial difficulty paying for basics: Not Very Hard Female Reproductive History: Date of last menstrual period: 03/19/20 Physical Exam Const: COMMON NORMALS: no acute distress Psych: COMMON NORMALS: mental status grossly normal Skin: OTHER: Redness surface does not daksha to her lower belly across the whole abdomen and then has some skin breakdown in the upper belly into the skin fold area no drainage noted presently Course Vital Signs: Vital signs: Vital Signs Temperature 97.3 F L 10/26/20 21:28 Pulse Rate 85 10/26/20 21:28 Respiratory Rate 14 10/26/20 21:28 Blood Pressure 138/87 10/26/20 21:28 Pulse Oximetry 98 10/26/20 21:28 Discharge Plan Discharge Patient Disposition: Home Clinical Impression: Skin breakdown Condition: Stable Prescriptions: New Desitin Rapid Relief 13 % cream 1 applic topical TID PRN (Reason: skin irritation) Qty: 454 RF: 0 Cortisone (hydrocortisone) 1 % cream 1 applic topical TID PRN (Reason: skin irritation) Qty: 454 RF: 0 No Action montelukast [Singulair] 10 mg tablet 10 mg PO DAILY Qty: 90 RF: 1 pantoprazole [Protonix] 40 mg tablet,delayed release (DR/EC) 40 mg PO BID Qty: 180 RF: 0 cyclobenzaprine 10 mg tablet 10 mg PO .HS PRN (Reason: muscle spasm) Qty: 7 RF: 0 docusate sodium 100 mg capsule 100 mg PO PRN RF: 0 levothyroxine 100 mcg capsule 100 mcg PO DAILY RF: 0 lactulose 10 gram/15 mL solution 10 gm PO BID 7 Days Qty: 210 RF: 0 citalopram [Celexa] 20 mg tablet 20 mg PO DAILY Qty: 30 RF: 2 buspirone 15 mg tablet 15 mg PO TID Qty: 90 RF: 2 (DME) lancets [Accu-Chek Softclix Lancets] Misc See Rx Instructions .ROUTE .MEDSUPPLY Qty: 50 RF: 0 (DME) blood-glucose meter [Accu-Chek Leeann Plus Meter] Misc See Rx Instructions .ROUTE .MEDSUPPLY Qty: 1 RF: 0 (DME) GLUCOMETER Qty: 1 RF: 0 (DME) lancets [Accu-Chek Fastclix Lancet Drum] Misc See Rx Instructions .ROUTE .MEDSUPPLY Qty: 50 RF: 0 (DME) lancing device with lancets [Accu-Chek Soft Dev Lancets] Kit See Rx Instructions .ROUTE .MEDSUPPLY Qty: 100 RF: 2 (DME) pen needle, diabetic [BD Ultra-Fine Short Pen Needle] 31 gauge x 5/16 needle See Rx Instructions .ROUTE .MEDSUPPLY Qty: 100 RF: 2 indapamide 2.5 mg tablet 2.5 mg PO QAM Qty: 30 RF: 5 simvastatin 20 mg tablet 20 mg PO DAILY Qty: 30 RF: 5 amlodipine [Norvasc] 5 mg tablet 5 mg PO DAILY Qty: 30 RF: 5 (DME) Accu-Chek Leeann Plus test strp Strip See Rx Instructions .ROUTE .MEDSUPPLY Qty: 100 RF: 1 losartan 50 mg tablet 50 mg PO DAILY Qty: 30 RF: 0 liothyronine 5 mcg tablet 5 mcg PO DAILY RF: 0 paroxetine HCl 20 mg tablet 20 mg PO DAILY RF: 0 triamcinolone acetonide 0.1 % ointment 1 applic topical BID Qty: 453.6 RF: 0 cephalexin 500 mg capsule 500 mg PO QID 7 Days Qty: 28 RF: 0 ondansetron HCl 4 mg tablet 4 mg PO Q8H 3 Days Qty: 9 RF: 0 Tylenol Extra Strength 500 mg Tablet 1,000 mg PO PRN RF: 0 insulin lispro 100 unit/mL insulin pen See Rx Instructions .ROUTE .COMPLEX RF: 0 Victoza 3-Solitario 0.6 mg/0.1 mL (18 mg/3 mL) pen injector 1.8 mg SUBCUT DAILY@20 RF: 0 Jardiance 10 mg Tablet 10 mg PO DAILY RF: 0 mupirocin 2 % ointment 1 applic TOPICAL BID Qty: 22 RF: 0 hydrocortisone 1 % cream 1 applic TOPICAL BID Qty: 14.2 RF: 0 Discharge Orders: Discharge ED (Routine); Ordered 10/26/20 Ordered By: Joey Hook Referrals: Shivani Schneider FNP [Primary Care Provider] - Discharge Diet: Usual diet Discharge Activity: Resume usual activity Activity Restrictions/Additional Instructions: Take medicine as directed follow-up with your family medical provider if no significant provement noted after 5 to 6 days Coding Level of Care Code ED Time Study Observer for Robyn Ruiz
[2020-10-26 21:53] VITALS: BP 112/75; PULSE 89; RESP 18; O2SAT 95
--- NOTE | 2020-10-26 21:55 | PC.NURSE ---
excoriation to lower abdomen with superficial sores to middle abdomen. no drainage, no fevers, nausea, dizziness.
== END 2020-10-26 21:56 | disposition home or self-care (01) ==
PROVIDERS: Emergency Provider Nurse Practitioner Family; PCP Registered Nurse
DX: R21 Rash and other nonspecific skin eruption (principal); Z79.4 Long term (current) use of insulin; E11.9 Type 2 diabetes mellitus without complications; E78.5 Hyperlipidemia, unspecified; Z87.891 Personal history of nicotine dependence
CPT/HCPCS: 12345; 99281

== ENCOUNTER 2020-10-30 10:38 | Outpatient (CLI) | payer MEDICARE, MEDICAID, SELFPAY ==
[2020-10-30 12:06] LABS: Estmated Average Glucose 229; Hemoglobin A1C 9.6 % (4.0-6.0)
[2020-10-30 12:53] LABS: Thyroid Stimulating Hormone 1.82 uIU/mL (0.27-4.20)
== END 2020-10-30 10:39 | disposition home or self-care (01) ==
LOC: LAB 10:50
PROVIDERS: PCP Registered Nurse
DX: E03.9 Hypothyroidism, unspecified (principal); E11.65 Type 2 diabetes mellitus with hyperglycemia; Z79.4 Long term (current) use of insulin
CPT/HCPCS: 83036; 84443

== ENCOUNTER 2020-11-19 01:05 | Emergency (ER) | payer MEDICARE, MEDICAID, SELFPAY ==
[2020-11-19 01:18] VITALS: BP 135/85; PULSE 70; RESP 18; TEMP 37.3; O2SAT 98; BMI 56.5
[2020-11-19] MEDS: ciprofloxacin-dexameth Otic Susp 7.5 mL Btl 4 DROP EAR-LEFT (02:01)
[2020-11-19 02:06] VITALS: PULSE 87; RESP 18; O2SAT 98
--- NOTE | 2020-11-19 04:32 | W.ED.EAR ---
HPI - Ear Problem General: Chief complaint: Ear Stated complaint: swelling in left ear Time Seen by Provider: 11/19/20 01:22 History of Present Illness: MD Complaint: ear pain Location: left ear Duration: intermittent Severity: moderate Relieving factors: nothing Exacerbating factors: nothing Discharge from ear: yes - clear Associated symptoms: Reports external ear pain and hearing loss; Denies fever(s), headache(s), rhinorrhea or tinnitus Treatment prior to arrival: eardrops (OTC) Review of Systems Const: Denies: fever(s) ENMT: Denies: tinnitus Card: Denies: chest pain or palpitations Resp: Denies: dyspnea Neuro: Denies: headache(s) PFSH ED PFSH: Medical History (Updated 11/19/20 @ 01:53 by Keaton Alexander DO) Acute serous otitis media of left ear Anxiety Borderline intellectual functioning Controlled type 2 diabetes mellitus, without long-term current use of insulin Depression Dyslipidemia Enrolled in chronic care management Generalized anxiety disorder GERD (gastroesophageal reflux disease) Hypertension Hypothyroidism Obesity BHARAT (obstructive sleep apnea) Seizure disorder Tinnitus Surgical History History of colonoscopy with polypectomy (~09/2018) History of esophagogastroduodenoscopy (EGD) (~09/2018) History of hysterectomy with oophorectomy History of laparoscopic cholecystectomy Family History Grandmother Cancer Father Lung disease Diabetes Denies family history of Anesthesia complication Bleeding disorder Social History Smoking and tobacco status: never smoked Quit status (tobacco): has quit using tobacco Second hand smoke exposure: No Smoking risk assessment/counseling performed?: No Alcohol intake: never Desire information about alcohol rehabilitation?: No Counseling given: No Desire information about substance/drug rehabilitation?: No Counseling given: No Adopted: No Caregiver/support person: Yes Lives independently: Yes Housing: House Marital status: Single Highest education level completed: High School Graduate service: No Current occupational status: employed 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 Current occupational exposures/hazards: No Pets and animals: Yes History of recent travel: No Sexually active: Yes Ania/Zoroastrianism: None Special ania needs: No Agree to transfusion: Yes Financial difficulty paying for basics: Not Very Hard Female Reproductive History: Date of last menstrual period: 03/19/20 Physical Exam Const: COMMON NORMALS: no acute distress HENMT: COMMON NORMALS: normocephalic and Normal external nose present HEAD & SCALP: normocephalic NOSE: Normal external nose present EXTERNAL EAR: Yes external ear abnormal Abnormal external ear present: auricular tenderness TYMPANIC MEMBRANE: TM abnormal TM laterality: left Details: dull and perforation Details: with clear discharge Chest: COMMONS NORMALS: normal inspection of the chest Resp: COMMON NORMALS: normal respiratory effort Cardio: COMMON NORMALS: regular rate and regular rhythm RATE: regular rate RHYTHM: regular rhythm Course Vital Signs: Vital signs: Vital Signs Temperature 99.1 F 11/19/20 01:18 Pulse Rate 87 11/19/20 02:06 Respiratory Rate 18 11/19/20 02:06 Blood Pressure 135/85 11/19/20 01:18 Pulse Oximetry 98 11/19/20 02:06 MDM - Ear MDM Narrative: Medical decision making narrative: Swollen canal with TM perforation, dullness, and some clear drainage. Will prescribe Ciprodex. Possibility exists of fungal infection. Referral to ENT given perforation Discharge Plan Discharge Patient Disposition: Home Clinical Impression: Otitis externa Qualifiers: Otitis externa type: diffuse Chronicity: acute Laterality: left Qualified Code(s): H60.312 - Diffuse otitis externa, left ear Ruptured tympanic membrane Qualifiers: Laterality: left Qualified Code(s): H72.92 - Unspecified perforation of tympanic membrane, left ear Condition: Stable Prescriptions: No Action montelukast [Singulair] 10 mg tablet 10 mg PO DAILY Qty: 90 RF: 1 cyclobenzaprine 10 mg tablet 10 mg PO .HS PRN (Reason: muscle spasm) Qty: 7 RF: 0 docusate sodium 100 mg capsule 100 mg PO PRN RF: 0 levothyroxine 100 mcg capsule 100 mcg PO DAILY RF: 0 lactulose 10 gram/15 mL solution 10 gm PO BID 7 Days Qty: 210 RF: 0 citalopram [Celexa] 20 mg tablet 20 mg PO DAILY Qty: 30 RF: 2 buspirone 15 mg tablet 15 mg PO TID Qty: 90 RF: 2 (DME) lancets [Accu-Chek Softclix Lancets] Misc See Rx Instructions .ROUTE .MEDSUPPLY Qty: 50 RF: 0 (DME) blood-glucose meter [Accu-Chek Leeann Plus Meter] Misc See Rx Instructions .ROUTE .MEDSUPPLY Qty: 1 RF: 0 (DME) GLUCOMETER Qty: 1 RF: 0 (DME) lancets [Accu-Chek Fastclix Lancet Drum] Misc See Rx Instructions .ROUTE .MEDSUPPLY Qty: 50 RF: 0 (DME) lancing device with lancets [Accu-Chek Soft Dev Lancets] Kit See Rx Instructions .ROUTE .MEDSUPPLY Qty: 100 RF: 2 (DME) pen needle, diabetic [BD Ultra-Fine Short Pen Needle] 31 gauge x 5/16 needle See Rx Instructions .ROUTE .MEDSUPPLY Qty: 100 RF: 2 indapamide 2.5 mg tablet 2.5 mg PO QAM Qty: 30 RF: 5 simvastatin 20 mg tablet 20 mg PO DAILY Qty: 30 RF: 5 amlodipine [Norvasc] 5 mg tablet 5 mg PO DAILY Qty: 30 RF: 5 pantoprazole [Protonix] 40 mg tablet,delayed release (DR/EC) 40 mg PO BID Qty: 180 RF: 0 (DME) Accu-Chek Leeann Plus test strp Strip See Rx Instructions .ROUTE .MEDSUPPLY Qty: 100 RF: 1 losartan 50 mg tablet 50 mg PO DAILY Qty: 21 RF: 0 liothyronine 5 mcg tablet 5 mcg PO DAILY RF: 0 paroxetine HCl 20 mg tablet 20 mg PO DAILY RF: 0 triamcinolone acetonide 0.1 % ointment 1 applic topical BID Qty: 453.6 RF: 0 Tylenol Extra Strength 500 mg Tablet 1,000 mg PO PRN RF: 0 insulin lispro 100 unit/mL insulin pen See Rx Instructions .ROUTE .COMPLEX RF: 0 Victoza 3-Solitario 0.6 mg/0.1 mL (18 mg/3 mL) pen injector 1.8 mg SUBCUT DAILY@20 RF: 0 Jardiance 10 mg Tablet 10 mg PO DAILY RF: 0 mupirocin 2 % ointment 1 applic TOPICAL BID Qty: 22 RF: 0 hydrocortisone 1 % cream 1 applic TOPICAL BID Qty: 14.2 RF: 0 Desitin Rapid Relief 13 % cream 1 applic topical TID PRN (Reason: skin irritation) Qty: 454 RF: 0 Cortisone (hydrocortisone) 1 % cream 1 applic topical TID PRN (Reason: skin irritation) Qty: 454 RF: 0 Discharge Orders: Discharge ED (Routine); Ordered 11/19/20 Ordered By: Keaton Alexander Referrals: Preston Hampton MD [Physician] - 4-7 days Shivani Schneider FNP [Primary Care Provider] - Patient Instructions: Otitis Externa (ED), Ruptured Eardrum (ED) Activity Restrictions/Additional Instructions: Call the ENT surgeon on Friday morning for an appointment next week. Use the drops twice daily for 7 days in that ear. Return for worsening drainage or pain, fever greater than 100 despite eardrops, other concerning symptoms Coding Level of Care Code ED Facilities Operations Technician for Robyn Ruiz
== END 2020-11-19 02:08 | disposition home or self-care (01) ==
PROVIDERS: Emergency Provider Emergency Medicine; PCP Registered Nurse
DX: H60.312 Diffuse otitis externa, left ear (principal); H72.92 Unspecified perforation of tympanic membrane, left ear; Z79.4 Long term (current) use of insulin; E11.9 Type 2 diabetes mellitus without complications; E78.5 Hyperlipidemia, unspecified; I10 Essential (primary) hypertension; Z87.891 Personal history of nicotine dependence
CPT/HCPCS: 12345; 99281; 99282

== ENCOUNTER 2020-11-28 21:13 | Emergency (ER) | payer MEDICARE, MEDICAID, SELFPAY ==
[2020-11-28 21:27] VITALS: BP 119/75; PULSE 81; RESP 18; TEMP 36.3; O2SAT 98; BMI 56.5
--- NOTE | 2020-11-28 21:40 | ED_ITS ---
HPI - Dizziness General: Chief Complaint: Dizziness Stated Complaint: H/A, NECK PAIN, DIZZY Time Seen by Provider: 11/28/20 21:18 Source: patient Mode of arrival: ambulatory Limitations: no limitations History of Present Illness: HPI Narrative: Nayla is a 50-year-old female who is well-known to the ER has a long history of migraines. She states she has had a headache with some neck and shoulder pain is been going on for months. States she had some slight dizziness did have a fall yesterday. She denies any head injury. States her headache is a 5 out of 10. Denies any fever or vomiting. Her headache is made worse with bright lights. Improved with dark rooms. Associated symptoms: Reports headache(s); Denies chest pain, chills, nausea or vomiting Review of Systems Const: Denies: fever(s), chills, body aches or change in appetite Eyes: Denies: blurry vision or eye discomfort ENMT: Denies: throat pain or dental pain Card: Denies: chest pain Resp: Denies: dyspnea GI: Denies: abdominal pain, nausea, vomiting or diarrhea : Denies: dysuria Musc: Reports: neck pain Skin/Breast: Denies: rash Neuro: Reports: headache(s) and dizziness Psych: Denies: depression Red/Lymph: Denies: easy bruising All/Imm: Denies: urticaria PFSH ED PFSH: Medical History (Updated 11/28/20 @ 22:42 by Patricia Arroyo MD) Acute serous otitis media of left ear Anxiety Borderline intellectual functioning Controlled type 2 diabetes mellitus, without long-term current use of insulin Depression Dyslipidemia Enrolled in chronic care management Generalized anxiety disorder GERD (gastroesophageal reflux disease) Hypertension Hypothyroidism Obesity BHARAT (obstructive sleep apnea) Seizure disorder Tinnitus Surgical History History of colonoscopy with polypectomy (~09/2018) History of esophagogastroduodenoscopy (EGD) (~09/2018) History of hysterectomy with oophorectomy History of laparoscopic cholecystectomy Family History Grandmother Cancer Father Lung disease Diabetes Denies family history of Anesthesia complication Bleeding disorder Social History Smoking and tobacco status: never smoked Quit status (tobacco): has quit using tobacco Second hand smoke exposure: No Smoking risk assessment/counseling performed?: No Alcohol intake: never Desire information about alcohol rehabilitation?: No Counseling given: No Desire information about substance/drug rehabilitation?: No Counseling given: No Adopted: No Caregiver/support person: Yes Lives independently: Yes Housing: House Marital status: Single Highest education level completed: High School Graduate service: No Current occupational status: employed 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 Current occupational exposures/hazards: No Pets and animals: Yes History of recent travel: No Sexually active: Yes Ania/Judaism: None Special ania needs: No Agree to transfusion: Yes Financial difficulty paying for basics: Not Very Hard Female Reproductive History: Date of last menstrual period: 03/19/20 Physical Exam Const: COMMON NORMALS: no acute distress, patient oriented x3 and healthy appearing HENMT: COMMON NORMALS: normocephalic and atraumatic HEAD & SCALP: normocephalic and atraumatic Eye: COMMON NORMALS: Equal, round and reactive pupils present and EOMs intact bilaterally PUPIL: Yes Equal, round and reactive pupils present Neck/C-Spine: COMMON NORMALS: full ROM and supple Chest: COMMONS NORMALS: normal inspection of the chest and normal palpation of entire chest wall Resp: COMMON NORMALS: normal respiratory effort, No retractions, No use of accessory muscles and clear to auscultation bilaterally AUSCULTATION: clear to auscultation bilaterally Cardio: COMMON NORMALS: regular rate, regular rhythm and No murmurs present (Cardio) RATE: regular rate RHYTHM: regular rhythm GI: COMMON NORMALS: Normal to inspection, nondistended, normoactive bowel sounds present, Soft to palpation, non-tender and no masses PALPATION: Yes Soft to palpation Extremity: COMMON NORMALS: normal to inspection and full ROM Neuro: COMMON NORMALS: patient oriented x3, moves all extremities and no focal motor deficits Psych: COMMON NORMALS: mental status grossly normal, Normal thought process present and cooperative THOUGHT PROCESS: Normal thought process present Skin: COMMON NORMALS: no rashes or lesions noted and no wounds GENERAL SKIN EXAM: no rashes or lesions noted Course Vital Signs: Vital signs: Vital Signs Temperature 97.3 F L 11/28/20 21:27 Pulse Rate 72 01/19/21 21:50 Respiratory Rate 19 H 11/28/20 21:50 Blood Pressure 136/76 11/28/20 22:27 Pulse Oximetry 100 11/28/20 22:27 MDM - Dizziness MDM Narrative: Medical decision making narrative: Nayla presents with neck pain and headache that is chronic in nature. She is well-appearing here and vital signs and blood work are all normal. She feels improved after IV meds. We will place her on Naprosyn and Robaxin and she is stable for discharge. She is to follow-up with PCP and return if worsening. She understands and agrees to the plan. Lab Data: Labs: Lab Results 11/28/20 11/28/20 11/28/20 Range/Units 21:53 21:54 21:54 WBC 9.5 (4.0-10.0) 10^3/ uL RBC 4.42 (4.1-5.3) 10^6/u L Hgb 12.5 (11.5-15.3) g/dL Hct 39.1 (37.0-47.0) % MCV 88.5 (81-99) fL MCH 28.3 (28.0-34.0) pg MCHC 32.0 (30.0-36.0) g/dL RDW 13.2 (12.1-15.1) % Plt Count 254 (130-400) 10^3/c mm MPV 9.4 (7.4-10.4) fL Neut % (Auto) 75.3 % Lymph % (Auto) 18.1 % [place] % (Auto) 5.4 % Eos % (Auto) 0.4 % Baso % (Auto) 0.5 % Neut # (Auto) 7.14 (1.8-7.7) 10^3/u L Lymph # (Auto) 1.7 (0.8-4.8) 10^3/u L [place] # (Auto) 0.5 (0.2-0.9) 10^3/u L Eos # (Auto) 0.0 (0.0-0.8) 10^3/u L Baso # (Auto) 0.1 (0.0-0.1) 10^3/u L Nucleated RBC % (a uto) 0 % Nucleated RBCs # 0.0 /100WBC Sodium 132 L (136-145) mmol/L Potassium 3.3 L (3.5-5.1) mmol/L Chloride 94 L (98-107) mmol/L Carbon Dioxide 27 (22-29) mmol/L Anion Gap 14.3 (5-19) BUN 39 H (6-20) mg/dL Creatinine 1.7 H (0.5-0.9) mg/dL GFR Calculation 32.1 L (90-130) mL/min Glucose 190 H (65-115) mg/dL POC Glucose 181 H (70-110) mg/dL Calculated Osmolal ity 288 (285-295) mOsm/k g Calcium 9.1 (8.5-10.5) mg/dL Discharge Plan Discharge Patient Disposition: Home Clinical Impression: Neck pain Headache Qualifiers: Headache type: unspecified Condition: Stable Prescriptions: New Robaxin-750 750 mg tablet 750 mg PO Q6H Qty: 30 RF: 0 Naprosyn 500 mg tablet 500 mg PO BID PRN (Reason: pain) Qty: 20 RF: 0 No Action montelukast [Singulair] 10 mg tablet 10 mg PO DAILY Qty: 90 RF: 1 cyclobenzaprine 10 mg tablet 10 mg PO .HS PRN (Reason: muscle spasm) Qty: 7 RF: 0 docusate sodium 100 mg capsule 100 mg PO PRN RF: 0 levothyroxine 100 mcg capsule 100 mcg PO DAILY RF: 0 lactulose 10 gram/15 mL solution 10 gm PO BID 7 Days Qty: 210 RF: 0 citalopram [Celexa] 20 mg tablet 20 mg PO DAILY Qty: 30 RF: 2 buspirone 15 mg tablet 15 mg PO TID Qty: 90 RF: 2 (DME) lancets [Accu-Chek Softclix Lancets] Misc See Rx Instructions .ROUTE .MEDSUPPLY Qty: 50 RF: 0 (DME) blood-glucose meter [Accu-Chek Leeann Plus Meter] Misc See Rx Instructions .ROUTE .MEDSUPPLY Qty: 1 RF: 0 (DME) GLUCOMETER Qty: 1 RF: 0 (DME) lancets [Accu-Chek Fastclix Lancet Drum] Misc See Rx Instructions .ROUTE .MEDSUPPLY Qty: 50 RF: 0 (DME) lancing device with lancets [Accu-Chek Soft Dev Lancets] Kit See Rx Instructions .ROUTE .MEDSUPPLY Qty: 100 RF: 2 (DME) pen needle, diabetic [BD Ultra-Fine Short Pen Needle] 31 gauge x 5/16 needle See Rx Instructions .ROUTE .MEDSUPPLY Qty: 100 RF: 2 indapamide 2.5 mg tablet 2.5 mg PO QAM Qty: 30 RF: 5 simvastatin 20 mg tablet 20 mg PO DAILY Qty: 30 RF: 5 amlodipine [Norvasc] 5 mg tablet 5 mg PO DAILY Qty: 30 RF: 5 pantoprazole [Protonix] 40 mg tablet,delayed release (DR/EC) 40 mg PO BID Qty: 180 RF: 0 (DME) Accu-Chek Leeann Plus test strp Strip See Rx Instructions .ROUTE .MEDSUPPLY Qty: 100 RF: 1 losartan 50 mg tablet 50 mg PO DAILY Qty: 21 RF: 0 liothyronine 5 mcg tablet 5 mcg PO DAILY RF: 0 paroxetine HCl 20 mg tablet 20 mg PO DAILY RF: 0 triamcinolone acetonide 0.1 % ointment 1 applic topical BID Qty: 453.6 RF: 0 Tylenol Extra Strength 500 mg Tablet 1,000 mg PO PRN RF: 0 insulin lispro 100 unit/mL insulin pen See Rx Instructions .ROUTE .COMPLEX RF: 0 Victoza 3-Solitario 0.6 mg/0.1 mL (18 mg/3 mL) pen injector 1.8 mg SUBCUT DAILY@20 RF: 0 Jardiance 10 mg Tablet 10 mg PO DAILY RF: 0 mupirocin 2 % ointment 1 applic TOPICAL BID Qty: 22 RF: 0 hydrocortisone 1 % cream 1 applic TOPICAL BID Qty: 14.2 RF: 0 Desitin Rapid Relief 13 % cream 1 applic topical TID PRN (Reason: skin irritation) Qty: 454 RF: 0 Cortisone (hydrocortisone) 1 % cream 1 applic topical TID PRN (Reason: skin irritation) Qty: 454 RF: 0 Discharge Orders: Discharge ED (Routine); Ordered 11/28/20 Ordered By: Patricia Arroyo Referrals: Shivani Schneider FNP [Primary Care Provider] - 1-3 days Discharge Diet: Advance as tolerated Discharge Activity: Resume usual activity Patient Instructions: Cervical Spine Strain (ED), Acute Headache (ED) Coding Level of Care Code ED Truck Supervisor for Chg Fwd Exam Comprehensive
[2020-11-28 21:50] VITALS: BP 133/82; PULSE 72; RESP 19; O2SAT 98
[2020-11-28] MEDS: metoclopramide 5 mg/mL SDV 2 mL 10 MG IVP (21:55)
[2020-11-28] MEDS: diphenhydrAMINE 50 mg/mL SDV 1mL IVP (21:56)
[2020-11-28] MEDS: ketorolac 30 mg/mL INJ 15 MG IVP (21:56)
[2020-11-28 22:02] LABS: Glucose Point of Care 181 mg/dL (70-110)
[2020-11-28 22:23] LABS: Basophils # 0.1 10^3/uL (0.0-0.1); Basophils % 0.5 %; Eosinophils % 0.4 %; Hematocrit 39.1 % (37.0-47.0); Hemoglobin 12.5 g/dL (11.5-15.3); Lymphocytes # 1.7 10^3/uL (0.8-4.8); Lymphocytes % 18.1 %; Mean Corpuscular Hemoglobin 28.3 pg (28.0-34.0); Mean Corpuscular Volume 88.5 fL (81-99); Mean Platelet Volume 9.4 fL (7.4-10.4); Monocytes # 0.5 10^3/uL (0.2-0.9); Monocytes % 5.4 %; Neutrophils # 7.14 10^3/uL (1.8-7.7); Neutrophils % 75.3 %; Nucleated Red Blood Cells % 0 %; Platelet Count 254 10^3/cmm (130-400); Red Blood Count 4.42 10^6/uL (4.1-5.3); Red Cell Distribution Width 13.2 % (12.1-15.1); White Blood Count 9.5 10^3/uL (4.0-10.0)
[2020-11-28 22:26] LABS: Anion Gap 14.3 (5-19); Blood Urea Nitrogen 39 mg/dL (6-20); Calcium 9.1 mg/dL (8.5-10.5); Carbon Dioxide 27 mmol/L (22-29); Chloride 94 mmol/L (98-107); Glomerular Filtration Rate 32.1 mL/min (90-130); Glucose 190 mg/dL (65-115); Osmolality Calculated 288 mOsm/kg (285-295); Potassium 3.3 mmol/L (3.5-5.1); Sodium 132 mmol/L (136-145)
[2020-11-28 22:27] VITALS: BP 136/76; O2SAT 100
[2020-11-28 22:47] VITALS: BP 97/59; PULSE 82; RESP 16; O2SAT 96
[2020-11-28 22:48] VITALS: BP 117/67; PULSE 83; RESP 17; O2SAT 97
== END 2020-11-28 22:52 | disposition home or self-care (01) ==
PROVIDERS: Emergency Provider Emergency Medicine; PCP Registered Nurse
DX: R51.9 Headache, unspecified (principal); M54.2 Cervicalgia; Z79.4 Long term (current) use of insulin; E11.9 Type 2 diabetes mellitus without complications; E78.5 Hyperlipidemia, unspecified; I10 Essential (primary) hypertension
CPT/HCPCS: 12345; 36416; 80048; 82962; 85025; 96374; 96375; 99283; J1200; J1885; J2765

== ENCOUNTER 2020-12-24 00:09 | Emergency (ER) | payer MEDICARE, MEDICAID, SELFPAY ==
[2020-12-24 00:15] VITALS: BP 154/86; PULSE 78; RESP 18; TEMP 36.3; O2SAT 98; BMI 56.0
--- NOTE | 2020-12-24 00:23 | W.ED.SKABFB ---
HPI - Skin/Abscess/Foreign Bdy General: Chief complaint: Skin/Abscess/Foreign Body Stated complaint: skin irregularity Time Seen by Provider: 12/24/20 00:22 History of Present Illness: HPI narrative: Patient is a 50-year-old female comes to the ED with pruritic rash on forearm. Patient says symptoms started a couple hours just prior to arrival. Patient says she noticed she started getting some itchiness on right forearm along with a red raised rash. Denies any other symptoms such as shortness of breath, nausea or vomiting. She denies any changes in lotions, perfumes, soaps or detergents. Patient unsure on what started pruritic rash. Associated symptoms: Deny chills, fever(s), nausea or vomiting Review of Systems Const: Denies: fever(s), chills or fatigue Eyes: Denies: change in vision or eye discomfort ENMT: Denies: throat pain, odynophagia, nasal discharge or nasal congestion Card: Denies: chest pain, palpitations, edema, swelling of feet/ankles, dyspnea on exertion or orthopnea Resp: Denies: dyspnea, productive cough or non-productive cough GI: Denies: abdominal pain, nausea, vomiting, diarrhea, constipation or hematochezia : Denies: flank pain, dysuria or hematuria Musc: Denies: neck pain, back pain or extremity swelling Skin/Breast: Reports: rash (Raised pruritic rash on right forearm.), pruritus and erythema; Denies: new lesions Neuro: Denies: headache(s), numbness in extremities or weakness in extremities PFS ED PFSH: Medical History Acute serous otitis media of left ear Anxiety Borderline intellectual functioning Controlled type 2 diabetes mellitus, without long-term current use of insulin Depression Dyslipidemia Enrolled in chronic care management Generalized anxiety disorder GERD (gastroesophageal reflux disease) Hypertension Hypothyroidism Obesity BHARAT (obstructive sleep apnea) Seizure disorder Tinnitus Surgical History History of colonoscopy with polypectomy (~09/2018) History of esophagogastroduodenoscopy (EGD) (~09/2018) History of hysterectomy with oophorectomy History of laparoscopic cholecystectomy Family History Grandmother Cancer Father Lung disease Diabetes Denies family history of Anesthesia complication Bleeding disorder Social History Smoking and tobacco status: never smoked Quit status (tobacco): has quit using tobacco Second hand smoke exposure: No Smoking risk assessment/counseling performed?: No Alcohol intake: never Desire information about alcohol rehabilitation?: No Counseling given: No Desire information about substance/drug rehabilitation?: No Counseling given: No Adopted: No Caregiver/support person: Yes Lives independently: Yes Housing: House Marital status: Single Highest education level completed: High School Graduate service: No Current occupational status: employed 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 Current occupational exposures/hazards: No Pets and animals: Yes History of recent travel: No Sexually active: Yes Ania/Orthodoxy: None Special ania needs: No Agree to transfusion: Yes Financial difficulty paying for basics: Not Very Hard Female Reproductive History: Date of last menstrual period: 03/19/20 Physical Exam Const: COMMON NORMALS: patient oriented x3 HENMT: COMMON NORMALS: normocephalic HEAD & SCALP: normocephalic MOUTH: Normal oral and palatal mucosa present THROAT: posterior oropharynx normal and uvula midline Neck/C-Spine: COMMON NORMALS: supple GENERAL: Yes normal visual inspection Resp: COMMON NORMALS: normal respiratory effort, No retractions, No use of accessory muscles and clear to auscultation bilaterally AUSCULTATION: clear to auscultation bilaterally Cardio: COMMON NORMALS: regular rate, regular rhythm, S1 normal heart sound present, S2 normal heart sound present, No gallops present (Cardio), No clicks present (Cardio), No murmurs present (Cardio) and Peripheral pulses 2+ throughout RATE: regular rate RHYTHM: regular rhythm HEART SOUNDS: S1 normal heart sound present and S2 normal heart sound present PERIPHERAL PULSES: Peripheral pulses 2+ throughout GI: COMMON NORMALS: Normal to inspection, nondistended, normoactive bowel sounds present, Soft to palpation, non-tender and no masses PALPATION: Yes Soft to palpation : COMMON NORMALS: Yes no CVA tenderness BLADDER/KIDNEY EXAM: Yes no CVA tenderness Back/Pelvis: COMMON NORMALS: no CVA tenderness Extremity: NARRATIVE EXTREMITY EXAM: Patient has raised, maculopapular red pruritic rash on right forearm. Suggestive of hives GENERAL: Yes normal exam except as noted Neuro: COMMON NORMALS: patient oriented x3 and moves all extremities Skin: NARRATIVE SKIN EXAM: Patient has raised, maculopapular red pruritic rash on right forearm. Suggestive of hives GENERAL SKIN EXAM: dry skin Course Vital Signs: Vital signs: Vital Signs Temperature 97.3 F L 12/24/20 00:15 Pulse Rate 78 12/24/20 00:15 Respiratory Rate 18 12/24/20 00:15 Blood Pressure 154/86 12/24/20 00:15 Pulse Oximetry 98 12/24/20 00:15 MDM - Skin/Abscess/Foreign Bdy MDM Narrative: Medical decision making narrative: Patient is a 50-year-old female comes the ED with a localized pruritic rash on right forearm. She is having no other symptoms. Exam findings shows a nontoxic patient in no acute distress that has hives-like rash on right forearm. Patient was given a dose of Solu-Medrol here in the ED and sent home with a prescription for hydrocortisone 1% ointment to use on rash. Return to ED precautions given. Follow-up with PCP in 7 to 10 days. Patient understood agree with plan. Discharge Plan Discharge Patient Disposition: Home Clinical Impression: Localized hives Condition: Stable Prescriptions: New Anti-Itch (HC) 1 % ointment 1 applic topical BID PRN (Reason: allergic reaction) Qty: 28.35 RF: 0 No Action montelukast [Singulair] 10 mg tablet 10 mg PO DAILY Qty: 90 RF: 1 cyclobenzaprine 10 mg tablet 10 mg PO .HS PRN (Reason: muscle spasm) Qty: 7 RF: 0 docusate sodium 100 mg capsule 100 mg PO PRN RF: 0 levothyroxine 100 mcg capsule 100 mcg PO DAILY RF: 0 lactulose 10 gram/15 mL solution 10 gm PO BID 7 Days Qty: 210 RF: 0 citalopram [Celexa] 20 mg tablet 20 mg PO DAILY Qty: 30 RF: 2 buspirone 15 mg tablet 15 mg PO TID Qty: 90 RF: 2 (DME) lancets [Accu-Chek Softclix Lancets] Misc See Rx Instructions .ROUTE .MEDSUPPLY Qty: 50 RF: 0 (DME) blood-glucose meter [Accu-Chek Leeann Plus Meter] Misc See Rx Instructions .ROUTE .MEDSUPPLY Qty: 1 RF: 0 (DME) GLUCOMETER Qty: 1 RF: 0 (DME) lancets [Accu-Chek Fastclix Lancet Drum] Misc See Rx Instructions .ROUTE .MEDSUPPLY Qty: 50 RF: 0 (DME) lancing device with lancets [Accu-Chek Soft Dev Lancets] Kit See Rx Instructions .ROUTE .MEDSUPPLY Qty: 100 RF: 2 (DME) pen needle, diabetic [BD Ultra-Fine Short Pen Needle] 31 gauge x 5/16 needle See Rx Instructions .ROUTE .MEDSUPPLY Qty: 100 RF: 2 indapamide 2.5 mg tablet 2.5 mg PO QAM Qty: 30 RF: 5 simvastatin 20 mg tablet 20 mg PO DAILY Qty: 30 RF: 5 amlodipine [Norvasc] 5 mg tablet 5 mg PO DAILY Qty: 30 RF: 5 pantoprazole [Protonix] 40 mg tablet,delayed release (DR/EC) 40 mg PO BID Qty: 180 RF: 0 (DME) Accu-Chek Leeann Plus test strp Strip See Rx Instructions .ROUTE .MEDSUPPLY Qty: 100 RF: 1 losartan 50 mg tablet 50 mg PO DAILY Qty: 14 RF: 0 liothyronine 5 mcg tablet 5 mcg PO DAILY RF: 0 paroxetine HCl 20 mg tablet 20 mg PO DAILY RF: 0 triamcinolone acetonide 0.1 % ointment 1 applic topical BID Qty: 453.6 RF: 0 Tylenol Extra Strength 500 mg Tablet 1,000 mg PO PRN RF: 0 insulin lispro 100 unit/mL insulin pen See Rx Instructions .ROUTE .COMPLEX RF: 0 Victoza 3-Solitario 0.6 mg/0.1 mL (18 mg/3 mL) pen injector 1.8 mg SUBCUT DAILY@20 RF: 0 Jardiance 10 mg Tablet 10 mg PO DAILY RF: 0 Robaxin-750 750 mg tablet 750 mg PO Q6H Qty: 30 RF: 0 Naprosyn 500 mg tablet 500 mg PO BID PRN (Reason: pain) Qty: 20 RF: 0 mupirocin 2 % ointment 1 applic TOPICAL BID Qty: 22 RF: 0 hydrocortisone 1 % cream 1 applic TOPICAL BID Qty: 14.2 RF: 0 Desitin Rapid Relief 13 % cream 1 applic topical TID PRN (Reason: skin irritation) Qty: 454 RF: 0 Cortisone (hydrocortisone) 1 % cream 1 applic topical TID PRN (Reason: skin irritation) Qty: 454 RF: 0 Discharge Orders: Discharge ED (Routine); Ordered 12/24/20 Ordered By: Khris Craig Referrals: Shivani Schneider FNP [Primary Care Provider] - Discharge Diet: Regular Discharge Activity: Resume usual activity Patient Instructions: Urticaria (ED) Activity Restrictions/Additional Instructions: Follow-up with medical provider as directed in 7 to 10 days for reevaluation. Use hydrocortisone cream as directed twice daily to treat rash. Return to the ER or your medical provider if condition worsens. Please read and understand discharge instructions. If any questions, please ask. 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
== END 2020-12-24 00:50 | disposition home or self-care (01) ==
PROVIDERS: Emergency Provider Physician Assistant; PCP Registered Nurse
DX: L50.8 Other urticaria (principal); Z79.4 Long term (current) use of insulin; E11.9 Type 2 diabetes mellitus without complications; E78.5 Hyperlipidemia, unspecified; I10 Essential (primary) hypertension; Z87.891 Personal history of nicotine dependence
CPT/HCPCS: 96374; 99283; J2930

== ENCOUNTER 2020-12-30 21:10 | Emergency (ER) | payer MEDICARE, MEDICAID, SELFPAY ==
[2020-12-30 21:22] VITALS: BP 148/93; PULSE 96; RESP 24; TEMP 36.7; O2SAT 95; BMI 56.0
[2020-12-30 21:25] VITALS: PULSE 96
--- NOTE | 2020-12-30 21:32 | XRR_ITS ---
PROCEDURE INFORMATION: Exam: XR Left Knee Exam date and time: 12/30/2020 9:50 PM Age: 50 years old Clinical indication: Pain; Knee; Left TECHNIQUE: Imaging protocol: XR Left knee. Views: 3 views. COMPARISON: CR XR knee LT 3V* [id number] 08/22/2020 5:05 PM FINDINGS: Bones/joints: Normal. Soft tissues: Normal. XR/XR knee LT 3V* [id number] IMPRESSION: No acute findings.
--- NOTE | 2020-12-30 21:33 | ED_ITS ---
HPI - Extremity Problem General: Chief complaint: Extremity Injury, Lower Stated complaint: L KNEE PAIN Time Seen by Provider: 12/30/20 21:26 Source: patient Mode of arrival: ambulatory Limitations: no limitations History of Present Illness: HPI Narrative: Patient is a 50-year-old female who presents to ED today with a complaint of left knee pain that began at rest while she was sitting on the couch. Patient tells me she has known arthritis in the knee joint. She denies any injury or trauma earlier that day. She is ambulatory on the extremity. She states she feels like her knee is swollen. Complaint: joint pain Onset (ago): hour(s) Pain Consistency: constant Location: left and lower extremity Radiation: none Relieving factors: immobilization Exacerbating factors: range of motion, weight bearing and walking Associated symptoms: Reports no associated symptoms Review of Systems Musc: Reports: joint pain (L knee) and joint swelling (L knee); Denies: extremity pain or extremity swelling Neuro: Denies: numbness in extremities or sensory changes PFSH ED PFSH: Medical History (Updated 12/30/20 @ 22:26 by ANN-MARIE Bacon) Acute serous otitis media of left ear Anxiety Borderline intellectual functioning Controlled type 2 diabetes mellitus, without long-term current use of insulin Depression Dyslipidemia Enrolled in chronic care management Generalized anxiety disorder GERD (gastroesophageal reflux disease) Hypertension Hypothyroidism Obesity BHARAT (obstructive sleep apnea) Seizure disorder Tinnitus Surgical History History of colonoscopy with polypectomy (~09/2018) History of esophagogastroduodenoscopy (EGD) (~09/2018) History of hysterectomy with oophorectomy History of laparoscopic cholecystectomy Family History Grandmother Cancer Father Lung disease Diabetes Denies family history of Anesthesia complication Bleeding disorder Social History Smoking and tobacco status: never smoked Quit status (tobacco): has quit using tobacco Second hand smoke exposure: No Smoking risk assessment/counseling performed?: No Alcohol intake: never Desire information about alcohol rehabilitation?: No Counseling given: No Desire information about substance/drug rehabilitation?: No Counseling given: No Adopted: No Caregiver/support person: Yes Lives independently: Yes Housing: House Marital status: Single Highest education level completed: High School Graduate service: No Current occupational status: employed 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 Current occupational exposures/hazards: No Pets and animals: Yes History of recent travel: No Sexually active: Yes Ania/Christian: None Special ania needs: No Agree to transfusion: Yes Financial difficulty paying for basics: Not Very Hard Female Reproductive History: Date of last menstrual period: 03/19/20 Physical Exam Const: COMMON NORMALS: no acute distress, patient oriented x3, no limitations and alert GENERAL APPEARANCE: cooperative NUTRITIONAL APPEARANCE: obese morbidly obese ORIENTATION/CONSCIOUSNESS: Yes awake, Yes oriented to person, Yes oriented to place and Yes oriented to time Extremity: NARRATIVE EXTREMITY EXAM: TTP throughout knee joint; no obvious swelling; exam severely limited secondary to body habitus; NV intact Neuro: COMMON NORMALS: patient oriented x3 and no sensory deficits noted SENSORIUM/ORIENTATION: Yes alert, Yes oriented to person, Yes oriented to place and Yes oriented to time Course Vital Signs: Vital signs: Vital Signs Temperature 98.1 F 12/30/20 21:22 Pulse Rate 83 12/30/20 22:30 Respiratory Rate 24 H 12/30/20 21:22 Blood Pressure 148/93 12/30/20 21:22 Pulse Oximetry 97 12/30/20 22:30 MDM - Extremity (Nontraumatic) Imaging Data^: XR L knee: My impression: NAD Discharge Plan Discharge Patient Disposition: Home Clinical Impression: Acute pain of left knee Condition: Stable Prescriptions: No Action montelukast [Singulair] 10 mg tablet 10 mg PO DAILY Qty: 90 RF: 1 cyclobenzaprine 10 mg tablet 10 mg PO .HS PRN (Reason: muscle spasm) Qty: 7 RF: 0 docusate sodium 100 mg capsule 100 mg PO PRN RF: 0 levothyroxine 100 mcg capsule 100 mcg PO DAILY RF: 0 lactulose 10 gram/15 mL solution 10 gm PO BID 7 Days Qty: 210 RF: 0 citalopram [Celexa] 20 mg tablet 20 mg PO DAILY Qty: 30 RF: 2 buspirone 15 mg tablet 15 mg PO TID Qty: 90 RF: 2 (DME) lancets [Accu-Chek Softclix Lancets] Misc See Rx Instructions .ROUTE .MEDSUPPLY Qty: 50 RF: 0 (DME) blood-glucose meter [Accu-Chek Leeann Plus Meter] Misc See Rx Instructions .ROUTE .MEDSUPPLY Qty: 1 RF: 0 (DME) GLUCOMETER Qty: 1 RF: 0 (DME) lancets [Accu-Chek Fastclix Lancet Drum] Misc See Rx Instructions .ROUTE .MEDSUPPLY Qty: 50 RF: 0 (DME) lancing device with lancets [Accu-Chek Soft Dev Lancets] Kit See Rx Instructions .ROUTE .MEDSUPPLY Qty: 100 RF: 2 (DME) pen needle, diabetic [BD Ultra-Fine Short Pen Needle] 31 gauge x 5/16 needle See Rx Instructions .ROUTE .MEDSUPPLY Qty: 100 RF: 2 indapamide 2.5 mg tablet 2.5 mg PO QAM Qty: 30 RF: 5 simvastatin 20 mg tablet 20 mg PO DAILY Qty: 30 RF: 5 amlodipine [Norvasc] 5 mg tablet 5 mg PO DAILY Qty: 30 RF: 5 pantoprazole [Protonix] 40 mg tablet,delayed release (DR/EC) 40 mg PO BID Qty: 180 RF: 0 (DME) Accu-Chek Leeann Plus test strp Strip See Rx Instructions .ROUTE .MEDSUPPLY Qty: 100 RF: 1 losartan 50 mg tablet 50 mg PO DAILY Qty: 14 RF: 0 liothyronine 5 mcg tablet 5 mcg PO DAILY RF: 0 paroxetine HCl 20 mg tablet 20 mg PO DAILY RF: 0 triamcinolone acetonide 0.1 % ointment 1 applic topical BID Qty: 453.6 RF: 0 Tylenol Extra Strength 500 mg Tablet 1,000 mg PO PRN RF: 0 insulin lispro 100 unit/mL insulin pen See Rx Instructions .ROUTE .COMPLEX RF: 0 Victoza 3-Solitario 0.6 mg/0.1 mL (18 mg/3 mL) pen injector 1.8 mg SUBCUT DAILY@20 RF: 0 Jardiance 10 mg Tablet 10 mg PO DAILY RF: 0 Robaxin-750 750 mg tablet 750 mg PO Q6H Qty: 30 RF: 0 Naprosyn 500 mg tablet 500 mg PO BID PRN (Reason: pain) Qty: 20 RF: 0 Anti-Itch (HC) 1 % ointment 1 applic topical BID PRN (Reason: allergic reaction) Qty: 28.35 RF: 0 mupirocin 2 % ointment 1 applic TOPICAL BID Qty: 22 RF: 0 hydrocortisone 1 % cream 1 applic TOPICAL BID Qty: 14.2 RF: 0 Desitin Rapid Relief 13 % cream 1 applic topical TID PRN (Reason: skin irritation) Qty: 454 RF: 0 Cortisone (hydrocortisone) 1 % cream 1 applic topical TID PRN (Reason: skin irritation) Qty: 454 RF: 0 Discharge Orders: Discharge ED (Routine); Ordered 12/30/20 Ordered By: Jacqueline Chan Referrals: Shivani Schneider FNP [Primary Care Provider] - Patient Instructions: Opioid Safety Activity Restrictions/Additional Instructions: [facility] is committed to fighting the nationwide opiate epidemic. We a re providing ALL patients with information regarding opiate safety. If you received opiate pain medication during your stay or if you received a prescription for opiate pain medication-please review this handout. If not, you may disregard. Thank you. Coding Level of Care Code ED Stock Supervisor for Robyn Ruiz
[2020-12-30 22:30] VITALS: PULSE 83; O2SAT 97
[2020-12-30 22:31] VITALS: BP 126/86; PULSE 78; O2SAT 96
== END 2020-12-30 22:32 | disposition home or self-care (01) ==
PROVIDERS: Emergency Provider Physician Assistant; PCP Registered Nurse
DX: M25.562 Pain in left knee (principal); Z79.4 Long term (current) use of insulin; E11.9 Type 2 diabetes mellitus without complications; E78.5 Hyperlipidemia, unspecified; I10 Essential (primary) hypertension; Z87.891 Personal history of nicotine dependence
CPT/HCPCS: 73562; 99282

== ENCOUNTER 2021-01-20 20:44 | Emergency (ER) | payer MEDICARE, MEDICAID, SELFPAY ==
[2021-01-20 21:18] VITALS: BP 112/66; PULSE 93; RESP 16; TEMP 36.7; O2SAT 97; BMI 56.1
--- NOTE | 2021-01-20 22:08 | ED_ITS ---
HPI - Abdominal Pain General: Chief Complaint: Abdominal Pain Stated Complaint: sever lower abd. pain, mostly right side Time Seen by Provider: 01/20/21 22:08 Source: patient Mode of arrival: ambulatory Limitations: no limitations History of Present Illness: HPI narrative: 50-year-old female comes in today with complaints of right lower quadrant abdominal pain. Patient appears well. Patient appears in no acute distress. Patient reports she has this pain on and off for the last several years. Patient has a history of hypertension, anxiety, back pain, diabetes, morbid obesity, thyroid dysfunction, GERD. Patient appears in moderate pain. Related Data: Date of Last Menstrual Period: 03/19/20 Review of Systems General: Reports: 10 or more systems reviewed and unremarkable except in HPI and below GI: Reports: abdominal pain PFSH ED PFSH: Medical History (Updated 01/21/21 @ 00:59 by PIPPA Arango) Acute serous otitis media of left ear Anxiety Borderline intellectual functioning Controlled type 2 diabetes mellitus, without long-term current use of insulin Depression Dyslipidemia Enrolled in chronic care management Generalized anxiety disorder GERD (gastroesophageal reflux disease) Hypertension Hypothyroidism Obesity BHARAT (obstructive sleep apnea) Seizure disorder Tinnitus Surgical History History of colonoscopy with polypectomy (~09/2018) History of esophagogastroduodenoscopy (EGD) (~09/2018) History of hysterectomy with oophorectomy History of laparoscopic cholecystectomy Family History Grandmother Cancer Father Lung disease Diabetes Denies family history of Anesthesia complication Bleeding disorder Social History Smoking and tobacco status: never smoked Quit status (tobacco): has quit using tobacco Second hand smoke exposure: No Smoking risk assessment/counseling performed?: No Alcohol intake: never Desire information about alcohol rehabilitation?: No Counseling given: No Desire information about substance/drug rehabilitation?: No Counseling given: No Adopted: No Caregiver/support person: Yes Lives independently: Yes Housing: House Marital status: Single Highest education level completed: High School Graduate service: No Current occupational status: employed 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 Current occupational exposures/hazards: No Pets and animals: Yes History of recent travel: No Sexually active: Yes Ania/Mu-Ism: None Special ania needs: No Agree to transfusion: Yes Financial difficulty paying for basics: Not Very Hard Female Reproductive History: Date of last menstrual period: 03/19/20 Physical Exam Const: COMMON NORMALS: no acute distress and patient oriented x3 GENERAL APPEARANCE: cooperative HENMT: COMMON NORMALS: normocephalic and Normal external nose present HEAD & SCALP: normal to inspection and normocephalic NOSE: Normal external nose present MOUTH: Normal oral and palatal mucosa present Eye: GENERAL EYE: appearance normal, both eyes and all related structures Neck/C-Spine: COMMON NORMALS: full ROM Chest: COMMONS NORMALS: normal inspection of the chest Resp: COMMON NORMALS: normal respiratory effort EFFORT & INSPECTION: Yes able to speak in complete sentences Cardio: COMMON NORMALS: regular rate and regular rhythm RATE: regular rate RHYTHM: regular rhythm GI: COMMON NORMALS: non-tender : COMMON NORMALS: Yes no CVA tenderness BLADDER/KIDNEY EXAM: Yes no CVA tenderness Back/Pelvis: COMMON NORMALS: no CVA tenderness and thoracic and lumbar spine normal to inspection Extremity: COMMON NORMALS: normal to inspection Neuro: COMMON NORMALS: patient oriented x3 and moves all extremities Psych: COMMON NORMALS: mental status grossly normal and cooperative Skin: COMMON NORMALS: no rashes or lesions noted GENERAL SKIN EXAM: no rashes or lesions noted Course Vital Signs: Vital signs: Vital Signs Temperature 98.1 F 01/20/21 21:18 Pulse Rate 73 01/21/21 00:06 Respiratory Rate 19 H 01/21/21 00:06 Blood Pressure 138/84 01/21/21 00:06 Pulse Oximetry 98 01/21/21 00:06 MDM - Abdominal Pain MDM Narrative: Medical decision making narrative: Patient comes in today for concerns of right lower quadrant abdominal pain. Patient reports that she has this pain on and off for the last year or so. Patient was evaluated in October and was ruled out for a appendicitis at that time. Patient had a CT scan of her abdomen which showed some diverticulosis but no other abnormalities. Patient was diagnosed with urinary tract infection at that time. Today's exam notes abdomen is soft nontender. Bowel sounds are present. Skin is warm and dry. Patient appears well. Vital signs are normal. Differential diagnosis includes colitis, musculoskeletal pain, hernia, malingering. After evaluation showed no elevation of white blood cells, urine was normal for patient and CMP was normal for patient. Patient was given a dose of Toradol IM for her pain which improved if patient was sidetracked ago. Patient was recommended to monitor for fever blood in vomit, stool, urine. Patient was courage to follow-up regarding these symptoms. Patient reported understanding agreed to plan. Recommend patient eat a healthy diet, use acetaminophen or ibuprofen for pain, and follow-up with primary care for further evaluation. Patient reported understanding. Lab Data: Labs: Lab Results 01/20/21 01/21/21 01/21/21 Range/Units 22:51 00:05 00:05 WBC 9.8 (4.0-10.0) 10^3/ uL RBC 4.71 (4.1-5.3) 10^6/u L Hgb 13.6 (11.5-15.3) g/dL Hct 41.5 (37.0-47.0) % MCV 88.1 (81-99) fL MCH 28.9 (28.0-34.0) pg MCHC 32.8 (30.0-36.0) g/dL RDW 13.2 (12.1-15.1) % Plt Count 284 (130-400) 10^3/c mm MPV 9.0 (7.4-10.4) fL Neut % (Auto) 72.1 % Lymph % (Auto) 19.3 % [place] % (Auto) 6.9 % Eos % (Auto) 0.8 % Baso % (Auto) 0.5 % Neut # (Auto) 7.03 (1.8-7.7) 10^3/u L Lymph # (Auto) 1.9 (0.8-4.8) 10^3/u L [place] # (Auto) 0.7 (0.2-0.9) 10^3/u L Eos # (Auto) 0.1 (0.0-0.8) 10^3/u L Baso # (Auto) 0.1 (0.0-0.1) 10^3/u L Nucleated RBC % (a uto) 0 % Nucleated RBCs # 0.0 /100WBC Sodium 134 L (136-145) mmol/L Potassium 3.5 (3.5-5.1) mmol/L Chloride 97 L (98-107) mmol/L Carbon Dioxide 25 (22-29) mmol/L Anion Gap 15.5 (5-19) BUN 26 H (6-20) mg/dL Creatinine 1.1 H (0.5-0.9) mg/dL GFR Calculation 53.0 L (90-130) mL/min Glucose 154 H (65-115) mg/dL Calculated Osmolal ity 286 (285-295) mOsm/k g Calcium 9.4 (8.5-10.5) mg/dL Total Bilirubin 0.2 (0.15-1.2) mg/dL AST 12 (0-32) U/L ALT 17 (0-33) U/L Alkaline Phosphata se 79 (35-105) IU/L Total Protein 7.7 (6.6-8.7) g/dL Albumin 3.4 L (3.5-5.2) g/dL Globulin 4.3 (1.3-4.6) g/dL Lipase 67 H (13-60) U/L Urine Color Yellow (Yellow) Urine Appearance Clear (CLEAR) Urine pH 5 (5-7) Ur Specific Gravit y 1.015 (1.005-1.030) Urine Protein Neg (Negative) Urine Glucose (UA) 4+ H (Normal) Urine Ketones Negative (Negative) Urine Blood 3+ H (Negative) Urine Nitrate Negative (Negative) Urine Bilirubin Neg (Negative) Urine Urobilinogen Norm (Negative) mg/dL Ur Leukocyte Cleo ase Negative (Negative) Urine RBC 5-10 H (0-2) /hpf Urine WBC 0-4 H (0-5) /hpf Ur Squamous Epith Cells 10-15 H (0-5) /hpf Amorphous Sediment Not Reportable Urine Bacteria Trace (NONE) /hpf Discharge Plan Discharge Patient Disposition: Home Clinical Impression: Recurrent right lower quadrant abdominal pain Condition: Stable Prescriptions: No Action montelukast [Singulair] 10 mg tablet 10 mg PO DAILY Qty: 90 RF: 1 cyclobenzaprine 10 mg tablet 10 mg PO .HS PRN (Reason: muscle spasm) Qty: 7 RF: 0 docusate sodium 100 mg capsule 100 mg PO PRN RF: 0 levothyroxine 100 mcg capsule 100 mcg PO DAILY RF: 0 lactulose 10 gram/15 mL solution 10 gm PO BID 7 Days Qty: 210 RF: 0 citalopram [Celexa] 20 mg tablet 20 mg PO DAILY Qty: 30 RF: 2 buspirone 15 mg tablet 15 mg PO TID Qty: 90 RF: 2 (DME) lancets [Accu-Chek Softclix Lancets] Misc See Rx Instructions .ROUTE .MEDSUPPLY Qty: 50 RF: 0 (DME) blood-glucose meter [Accu-Chek Leeann Plus Meter] Misc See Rx Instructions .ROUTE .MEDSUPPLY Qty: 1 RF: 0 (DME) GLUCOMETER Qty: 1 RF: 0 (DME) lancets [Accu-Chek Fastclix Lancet Drum] Misc See Rx Instructions .ROUTE .MEDSUPPLY Qty: 50 RF: 0 (DME) lancing device with lancets [Accu-Chek Soft Dev Lancets] Kit See Rx Instructions .ROUTE .MEDSUPPLY Qty: 100 RF: 2 (DME) pen needle, diabetic [BD Ultra-Fine Short Pen Needle] 31 gauge x 5/16 needle See Rx Instructions .ROUTE .MEDSUPPLY Qty: 100 RF: 2 indapamide 2.5 mg tablet 2.5 mg PO QAM Qty: 30 RF: 5 simvastatin 20 mg tablet 20 mg PO DAILY Qty: 30 RF: 5 amlodipine [Norvasc] 5 mg tablet 5 mg PO DAILY Qty: 30 RF: 5 pantoprazole [Protonix] 40 mg tablet,delayed release (DR/EC) 40 mg PO BID Qty: 180 RF: 0 (DME) Accu-Chek Leeann Plus test strp Strip See Rx Instructions .ROUTE .MEDSUPPLY Qty: 100 RF: 1 losartan 50 mg tablet 50 mg PO DAILY Qty: 14 RF: 0 liothyronine 5 mcg tablet 5 mcg PO DAILY RF: 0 paroxetine HCl 20 mg tablet 20 mg PO DAILY RF: 0 triamcinolone acetonide 0.1 % ointment 1 applic topical BID Qty: 453.6 RF: 0 Tylenol Extra Strength 500 mg Tablet 1,000 mg PO PRN RF: 0 insulin lispro 100 unit/mL insulin pen See Rx Instructions .ROUTE .COMPLEX RF: 0 Victoza 3-Solitario 0.6 mg/0.1 mL (18 mg/3 mL) pen injector 1.8 mg SUBCUT DAILY@20 RF: 0 Jardiance 10 mg Tablet 10 mg PO DAILY RF: 0 Robaxin-750 750 mg tablet 750 mg PO Q6H Qty: 30 RF: 0 Naprosyn 500 mg tablet 500 mg PO BID PRN (Reason: pain) Qty: 20 RF: 0 Anti-Itch (HC) 1 % ointment 1 applic topical BID PRN (Reason: allergic reaction) Qty: 28.35 RF: 0 mupirocin 2 % ointment 1 applic TOPICAL BID Qty: 22 RF: 0 hydrocortisone 1 % cream 1 applic TOPICAL BID Qty: 14.2 RF: 0 Desitin Rapid Relief 13 % cream 1 applic topical TID PRN (Reason: skin irritation) Qty: 454 RF: 0 Cortisone (hydrocortisone) 1 % cream 1 applic topical TID PRN (Reason: skin irritation) Qty: 454 RF: 0 Discharge Orders: Discharge ED (Routine); Ordered 01/21/21 Ordered By: Ash Burton Referrals: Shivani Schneider FNP [Primary Care Provider] - Patient Instructions: Abdominal Pain (ED), Opioid Safety Activity Restrictions/Additional Instructions: Home and rest. Monitor for fever, blood in vomit, stool, or urine. Return to the emergency department for new concerns or worsening symptoms. Follow-up with primary care for further treatment. 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
[2021-01-21 00:06] VITALS: BP 138/84; PULSE 73; RESP 19; O2SAT 98
[2021-01-21 00:26] LABS: Basophils # 0.1 10^3/uL (0.0-0.1); Basophils % 0.5 %; Eosinophils # 0.1 10^3/uL (0.0-0.8); Eosinophils % 0.8 %; Hematocrit 41.5 % (37.0-47.0); Hemoglobin 13.6 g/dL (11.5-15.3); Lymphocytes # 1.9 10^3/uL (0.8-4.8); Lymphocytes % 19.3 %; Mean Corpuscular HGB Conc 32.8 g/dL (30.0-36.0); Mean Corpuscular Hemoglobin 28.9 pg (28.0-34.0); Mean Corpuscular Volume 88.1 fL (81-99); Monocytes # 0.7 10^3/uL (0.2-0.9); Monocytes % 6.9 %; Neutrophils # 7.03 10^3/uL (1.8-7.7); Neutrophils % 72.1 %; Nucleated Red Blood Cells % 0 %; Platelet Count 284 10^3/cmm (130-400); Red Blood Count 4.71 10^6/uL (4.1-5.3); Red Cell Distribution Width 13.2 % (12.1-15.1); White Blood Count 9.8 10^3/uL (4.0-10.0)
[2021-01-21 00:43] LABS: Add Urine Microscopic? YES; Bilirubin Urine Neg (Negative); Blood Urine 3+ (Negative); Glucose Urine UA 4+ (Normal); Ketones Urine Negative (Negative); Leukocyte Esterase Urine Negative (Negative); Nitrate Urine Negative (Negative); Protein Urine Neg (Negative); Specific Gravity, Urine 1.015 (1.005-1.030); Urine Appearance Clear (CLEAR); Urine Color Yellow (Yellow); Urobilinogen Urine Norm (Negative); pH Urine 5 (5-7)
[2021-01-21 00:44] LABS: Add Urine Culture? No; Bacteria Urine TRACE /hpf; WBC Urine 0-4 /hpf (0-5)
[2021-01-21 00:56] LABS: Alanine Aminotransferase 17 U/L (0-33); Albumin Level 3.4 g/dL (3.5-5.2); Alkaline Phosphatase 79 IU/L (35-105); Anion Gap 15.5 (5-19); Aspartate Amino Transferase 12 U/L (0-32); Blood Urea Nitrogen 26 mg/dL (6-20); Calcium 9.4 mg/dL (8.5-10.5); Carbon Dioxide 25 mmol/L (22-29); Chloride 97 mmol/L (98-107); Globulin 4.3 g/dL (1.3-4.6); Glucose 154 mg/dL (65-115); Lipase 67 U/L (13-60); Osmolality Calculated 286 mOsm/kg (285-295); Potassium 3.5 mmol/L (3.5-5.1); Sodium 134 mmol/L (136-145); Total Bilirubin 0.2 mg/dL (0.15-1.2); Total Protein 7.7 g/dL (6.6-8.7)
[2021-01-21] MEDS: ketorolac 30 mg/mL INJ IM (01:27)
[2021-01-21 01:28] VITALS: BP 121/85; PULSE 85; RESP 18; O2SAT 97
== END 2021-01-21 01:30 | disposition home or self-care (01) ==
PROVIDERS: Emergency Provider Nurse Practitioner Family; PCP Registered Nurse
DX: R10.31 Right lower quadrant pain (principal); Z79.4 Long term (current) use of insulin; E11.9 Type 2 diabetes mellitus without complications; E78.5 Hyperlipidemia, unspecified; I10 Essential (primary) hypertension; Z87.891 Personal history of nicotine dependence
CPT/HCPCS: 80053; 81001; 83690; 85025; 96372; J1885

== ENCOUNTER 2021-01-31 20:12 | Emergency (ER) | payer MEDICARE, MEDICAID, SELFPAY ==
[2021-01-31 20:38] VITALS: BP 133/83; PULSE 90; RESP 18; TEMP 36.5; O2SAT 96; BMI 57.2
--- NOTE | 2021-01-31 22:19 | ED_ITS ---
HPI - Abdominal Pain General: Chief Complaint: Abdominal Pain Stated Complaint: R SIDE ABD CRAMPING Time Seen by Provider: 01/31/21 21:55 Source: patient Mode of arrival: ambulatory Limitations: no limitations History of Present Illness: HPI narrative: 50-year-old female patient presents to the emergency department with right upper quadrant and right lower quadrant cramping/pain. She has experienced this pain on and off for several months. She states tonight, developed nausea vomiting times several episodes, states vomiting occurred prior to the onset of abdominal pain. She states was advised to come to the emergency department if she developed abdominal pain with nausea vomiting. She is requesting something to drink upon exam. She reports abdominal pain has not changed. Is described as moderate. She has not taken anything for the pain or nausea. She has a history of PANFILO/BSO. She also has history of cholecystectomy. CT scan completed October 2020 with no acute findings of the abdomen and pelvis. She does have diverticula but without diverticulitis at time of CT scan. MD elicited complaint: abdominal pain Pertinent past history: constipation Onset (ago): hour(s) (3-4) Pain Consistency: intermittent Location: RUQ and RLQ Severity: moderate Quality: cramping Radiation: none Migration to: no migration Exacerbating factors: nothing Relieving factors: nothing Associated Symptoms: Reports constipation, nausea and vomiting; Denies bloating, chills, diarrhea, dysuria, fever(s), heartburn, hematochezia and hematemesis Related Data: Date of Last Menstrual Period: 03/19/20 Review of Systems General: Reports: 10 or more systems reviewed and unremarkable except in HPI and below Const: Denies: fever(s), chills or diaphoresis Eyes: Denies: blurry vision or eye redness ENMT: Denies: throat pain, dental pain or disequilibrium Card: Denies: chest pain, palpitations or irregular heart rhythm Resp: Denies: dyspnea, productive cough, non-productive cough or wheezing GI: Reports: abdominal pain, nausea, vomiting and constipation; Denies: hematemesis, heartburn, diarrhea, bloating or hematochezia : Denies: difficulty voiding or dysuria Musc: Denies: neck pain, back pain, joint pain or joint warmth Skin/Breast: Denies: rash or pruritus Neuro: Denies: headache(s), weakness in extremities or behavioral changes Psych: Denies: anxiety or depression Red/Lymph: Denies: easy bruising PFSH ED PFSH: Medical History (Updated 01/31/21 @ 23:08 by IRIS Pyle) Acute serous otitis media of left ear Anxiety Borderline intellectual functioning Controlled type 2 diabetes mellitus, without long-term current use of insulin Depression Dyslipidemia Enrolled in chronic care management Generalized anxiety disorder GERD (gastroesophageal reflux disease) Hypertension Hypothyroidism Obesity BHARAT (obstructive sleep apnea) Seizure disorder Tinnitus Surgical History History of colonoscopy with polypectomy (~09/2018) History of esophagogastroduodenoscopy (EGD) (~09/2018) History of hysterectomy with oophorectomy History of laparoscopic cholecystectomy Family History Grandmother Cancer Father Lung disease Diabetes Denies family history of Anesthesia complication Bleeding disorder Social History Smoking and tobacco status: never smoked Quit status (tobacco): has quit using tobacco Second hand smoke exposure: No Smoking risk assessment/counseling performed?: No Alcohol intake: never Desire information about alcohol rehabilitation?: No Counseling given: No Desire information about substance/drug rehabilitation?: No Counseling given: No Adopted: No Caregiver/support person: Yes Lives independently: Yes Housing: House Marital status: Single Highest education level completed: High School Graduate service: No Current occupational status: employed 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 Current occupational exposures/hazards: No Pets and animals: Yes History of recent travel: No Sexually active: Yes Ania/Spiritism: None Special ania needs: No Agree to transfusion: Yes Financial difficulty paying for basics: Not Very Hard Female Reproductive History: Date of last menstrual period: 03/19/20 Physical Exam Const: COMMON NORMALS: no acute distress, patient oriented x3, healthy appearing, alert and well nourished EXAM LIMITATIONS: no altered mental status and no physical limitations GENERAL APPEARANCE: cooperative, comfortable, well kempt, well developed and well hydrated NUTRITIONAL APPEARANCE: obese ORIENTATION/CONSCIOUSNESS: Yes awake, Yes oriented to person, Yes oriented to place and Yes oriented to time HENMT: COMMON NORMALS: normocephalic, Normal external nose present and moist oral mucous membranes HEAD & SCALP: normocephalic NOSE: Normal external nose present Eye: COMMON NORMALS: Equal, round and reactive pupils present and EOMs intact bilaterally GENERAL EYE: appearance normal, both eyes and all related structures PUPIL: Yes Equal, round and reactive pupils present Neck/C-Spine: COMMON NORMALS: full ROM and no lymphadenopathy GENERAL: Yes normal visual inspection and Yes trachea midline CERVICAL SPINE: Yes cervical ROM normal Lymph: LYMPHATIC: no lymphadenopathy noted Chest: COMMONS NORMALS: normal inspection of the chest and normal palpation of entire chest wall CHEST: No localized rib tenderness with anteroposterior compression Resp: COMMON NORMALS: normal respiratory effort, No retractions, No use of accessory muscles and clear to auscultation bilaterally EFFORT & INSPECTION: Yes able to speak in complete sentences AUSCULTATION: clear to auscultation bilaterally Cardio: COMMON NORMALS: regular rate, regular rhythm, S1 normal heart sound present, S2 normal heart sound present and Peripheral pulses 2+ throughout RATE: regular rate RHYTHM: regular rhythm HEART SOUNDS: S1 normal heart sound present and S2 normal heart sound present PERIPHERAL PULSES: Peripheral pulses 2+ throughout GI: COMMON NORMALS: Normal to inspection, nondistended, normoactive bowel sounds present and Soft to palpation INSPECTION: Yes normal to inspection, No abdominal wall ecchymosis, No Anasarca, Yes central obesity and No visible h erniation AUSCULTATION: Yes normoactive bowel sounds PALPATION: Yes Soft to palpation and Yes Tenderness to palpation present (GI) Details: RLQ and RUQ : COMMON NORMALS: Yes no CVA tenderness BLADDER/KIDNEY EXAM: Yes no CVA tenderness Back/Pelvis: COMMON NORMALS: no CVA tenderness, thoracic and lumbar spine normal to inspection, no thoracic nor lumbar tenderness and thoraco-lumbar ROM normal Extremity: COMMON NORMALS: normal to inspection and capillary refill normal Neuro: COMMON NORMALS: patient oriented x3 and no focal motor deficits SENSORIUM/ORIENTATION: Yes alert, Yes oriented to person, Yes oriented to place and Yes oriented to time Psych: COMMON NORMALS: mental status grossly normal, Normal thought process present and cooperative APPEARANCE: Yes well kempt ACTIVITY/MOTOR BEHAVIOR: Yes appropriate eye contact THOUGHT PROCESS: Normal thought process present Skin: COMMON NORMALS: no rashes or lesions noted, no wounds and turgor normal GENERAL SKIN EXAM: no rashes or lesions noted, elasticity normal and turgor normal Course Vital Signs: Vital signs: Vital Signs Temperature 97.7 F 01/31/21 20:38 Pulse Rate 87 02/01/21 00:07 Respiratory Rate 20 H 02/01/21 00:07 Blood Pressure 127/79 02/01/21 00:07 Pulse Oximetry 98 02/01/21 00:07 MDM - Abdominal Pain MDM Narrative: Medical decision making narrative: 50-year-old female patient presents to the emergency department with right upper and lower quadrant pain she has experienced for months. Her concern tonight is onset of nausea vomiting which resolved with administration of Zofran. She was thirsty upon presentation, requesting something to drink. Zofran alleviated nausea and pain, she reports feeling better. She was administered Toradol as medication has helped with her chronic abdominal pain in the past. She was able to tolerate fluids without nausea vomiting. She is requesting to go home blood findings of normal serology results. Urinalysis with positive urinary tract infection, 1 g of Rocephin provided here in the ED. She had negative CVA tenderness/concern for pyelonephritis, she was without fever. She was placed on Omnicef for urinary tract infection. Advised to follow-up with her primary care for repeat urinalysis in 10 days. Prescription of Zofran provided. Lab Data: Labs: Lab Results 01/31/21 01/31/21 01/31/21 Range/Units 22:13 22:15 22:15 WBC 9.0 (4.0-10.0) 10^3/ uL RBC 4.82 (4.1-5.3) 10^6/u L Hgb 13.8 (11.5-15.3) g/dL Hct 43.4 (37.0-47.0) % MCV 90.0 (81-99) fL MCH 28.6 (28.0-34.0) pg MCHC 31.8 (30.0-36.0) g/dL RDW 12.9 (12.1-15.1) % Plt Count 342 (130-400) 10^3/c mm MPV 9.0 (7.4-10.4) fL Neut % (Auto) 72.1 % Lymph % (Auto) 20.1 % [place] % (Auto) 6.3 % Eos % (Auto) 0.8 % Baso % (Auto) 0.3 % Neut # (Auto) 6.47 (1.8-7.7) 10^3/u L Lymph # (Auto) 1.8 (0.8-4.8) 10^3/u L [place] # (Auto) 0.6 (0.2-0.9) 10^3/u L Eos # (Auto) 0.1 (0.0-0.8) 10^3/u L Baso # (Auto) 0.0 (0.0-0.1) 10^3/u L Nucleated RBC % (a uto) 0 % Nucleated RBCs # 0.0 /100WBC Sodium 135 L (136-145) mmol/L Potassium 4.1 (3.5-5.1) mmol/L Chloride 101 (98-107) mmol/L Carbon Dioxide 25 (22-29) mmol/L Anion Gap 13.1 (5-19) BUN 20 (6-20) mg/dL Creatinine 0.9 (0.5-0.9) mg/dL GFR Calculation 66.8 L (90-130) mL/min Glucose 146 H (65-115) mg/dL Calculated Osmolal ity 285 (285-295) mOsm/k g Calcium 9.2 (8.5-10.5) mg/dL Total Bilirubin 0.2 (0.15-1.2) mg/dL AST 15 (0-32) U/L ALT 19 (0-33) U/L Alkaline Phosphata se 83 (35-105) IU/L Total Protein 8.4 (6.6-8.7) g/dL Albumin 3.8 (3.5-5.2) g/dL Globulin 4.6 (1.3-4.6) g/dL Lipase 59 (13-60) U/L Urine Color Yellow (Yellow) Urine Appearance Cloudy (CLEAR) Urine pH 5 (5-7) Ur Specific Gravit y 1.015 (1.005-1.030) Urine Protein Trace (Negative) Urine Glucose (UA) 4+ H (Normal) Urine Ketones Negative (Negative) Urine Blood 3+ H (Negative) Urine Nitrate Negative (Negative) Urine Bilirubin Neg (Negative) Urine Urobilinogen Norm (Negative) mg/dL Ur Leukocyte Cleo ase 2+ H (Negative) Urine RBC 25-40 H (0-2) /hpf Urine WBC 15-25 H (0-5) /hpf Ur Squamous Epith Cells 25-40 H (0-5) /hpf Amorphous Sediment Not Reportable Urine Bacteria 2+ H (NONE) /hpf Discharge Plan Discharge Patient Disposition: Home Clinical Impression: UTI (urinary tract infection) Qualifiers: Urinary tract infection type: acute cystitis Hematuria presence: with hematuria Qualified Code(s): N30.01 - Acute cystitis with hematuria Abdominal pain Qualifiers: Abdominal location: generalized Qualified Code(s): R10.84 - Generalized abdominal pain Condition: Stable Prescriptions: New cefdinir 300 mg capsule 300 mg PO BID 5 Days Qty: 10 RF: 0 Zofran 4 mg tablet 4 mg PO Q4H PRN (Reason: Nausea And Vomiting) Qty: 10 RF: 0 No Action montelukast [Singulair] 10 mg tablet 10 mg PO DAILY Qty: 90 RF: 1 cyclobenzaprine 10 mg tablet 10 mg PO .HS PRN (Reason: muscle spasm) Qty: 7 RF: 0 docusate sodium 100 mg capsule 100 mg PO PRN RF: 0 levothyroxine 100 mcg capsule 100 mcg PO DAILY RF: 0 lactulose 10 gram/15 mL solution 10 gm PO BID 7 Days Qty: 210 RF: 0 citalopram [Celexa] 20 mg tablet 20 mg PO DAILY Qty: 30 RF: 2 buspirone 15 mg tablet 15 mg PO TID Qty: 90 RF: 2 (DME) lancets [Accu-Chek Softclix Lancets] Misc See Rx Instructions .ROUTE .MEDSUPPLY Qty: 50 RF: 0 (DME) blood-glucose meter [Accu-Chek Leeann Plus Meter] Misc See Rx Instructions .ROUTE .MEDSUPPLY Qty: 1 RF: 0 (DME) GLUCOMETER Qty: 1 RF: 0 (DME) lancets [Accu-Chek Fastclix Lancet Drum] Misc See Rx Instructions .ROUTE .MEDSUPPLY Qty: 50 RF: 0 (DME) lancing device with lancets [Accu-Chek Soft Dev Lancets] Kit See Rx Instructions .ROUTE .MEDSUPPLY Qty: 100 RF: 2 (DME) pen needle, diabetic [BD Ultra-Fine Short Pen Needle] 31 gauge x 5/16 needle See Rx Instructions .ROUTE .MEDSUPPLY Qty: 100 RF: 2 indapamide 2.5 mg tablet 2.5 mg PO QAM Qty: 30 RF: 5 simvastatin 20 mg tablet 20 mg PO DAILY Qty: 30 RF: 5 amlodipine [Norvasc] 5 mg tablet 5 mg PO DAILY Qty: 30 RF: 5 pantoprazole [Protonix] 40 mg tablet,delayed release (DR/EC) 40 mg PO BID Qty: 180 RF: 0 (DME) Accu-Chek Leeann Plus test strp Strip See Rx Instructions .ROUTE .MEDSUPPLY Qty: 100 RF: 1 losartan 50 mg tablet 50 mg PO DAILY Qty: 14 RF: 0 liothyronine 5 mcg tablet 5 mcg PO DAILY RF: 0 paroxetine HCl 20 mg tablet 20 mg PO DAILY RF: 0 triamcinolone acetonide 0.1 % ointment 1 applic topical BID Qty: 453.6 RF: 0 Tylenol Extra Strength 500 mg Tablet 1,000 mg PO PRN RF: 0 insulin lispro 100 unit/mL insulin pen See Rx Instructions .ROUTE .COMPLEX RF: 0 Victoza 3-Solitario 0.6 mg/0.1 mL (18 mg/3 mL) pen injector 1.8 mg SUBCUT DAILY@20 RF: 0 Jardiance 10 mg Tablet 10 mg PO DAILY RF: 0 Robaxin-750 750 mg tablet 750 mg PO Q6H Qty: 30 RF: 0 Naprosyn 500 mg tablet 500 mg PO BID PRN (Reason: pain) Qty: 20 RF: 0 Anti-Itch (HC) 1 % ointment 1 applic topical BID PRN (Reason: allergic reaction) Qty: 28.35 RF: 0 mupirocin 2 % ointment 1 applic TOPICAL BID Qty: 22 RF: 0 hydrocortisone 1 % cream 1 applic TOPICAL BID Qty: 14.2 RF: 0 Desitin Rapid Relief 13 % cream 1 applic topical TID PRN (Reason: skin irritation) Qty: 454 RF: 0 Cortisone (hydrocortisone) 1 % cream 1 applic topical TID PRN (Reason: skin irritation) Qty: 454 RF: 0 Discharge Orders: Discharge ED (Routine); Ordered 01/31/21 Ordered By: Priya Ybarra Referrals: Shivani Schneider FNP [Primary Care Provider] - Discharge Diet: Usual diet Discharge Activity: Resume usual activity Patient Instructions: Urinary Tract Infection in Women (ED), Acute Nausea and Vomiting (ED), Abdominal Pain (ED), Opioid Safety Activity Restrictions/Additional Instructions: Follow-up with your primary care provider in 10 days to ensure urinary tract infection has resolved Return the emergency department if you develop fever, worsening right lower quadrant pain, nausea vomiting despite use of Zofran or other concerning symptoms Clear liquid diet for the next 12 hours then advance slowly as tolerated, avoid greasy fried fatty foods to avoid stomach upset Take antibiotic until all gone, even if feeling better Coding Level of Care Code ED Channel Process Supervisor for Robyn Fwd Exam Comprehensive
[2021-01-31 22:31] LABS: Basophils % 0.3 %; Eosinophils # 0.1 10^3/uL (0.0-0.8); Eosinophils % 0.8 %; Hematocrit 43.4 % (37.0-47.0); Hemoglobin 13.8 g/dL (11.5-15.3); Lymphocytes # 1.8 10^3/uL (0.8-4.8); Lymphocytes % 20.1 %; Mean Corpuscular HGB Conc 31.8 g/dL (30.0-36.0); Mean Corpuscular Hemoglobin 28.6 pg (28.0-34.0); Monocytes # 0.6 10^3/uL (0.2-0.9); Monocytes % 6.3 %; Neutrophils # 6.47 10^3/uL (1.8-7.7); Neutrophils % 72.1 %; Nucleated Red Blood Cells % 0 %; Platelet Count 342 10^3/cmm (130-400); Red Blood Count 4.82 10^6/uL (4.1-5.3); Red Cell Distribution Width 12.9 % (12.1-15.1)
[2021-01-31 22:46] LABS: Alanine Aminotransferase 19 U/L (0-33); Albumin Level 3.8 g/dL (3.5-5.2); Alkaline Phosphatase 83 IU/L (35-105); Anion Gap 13.1 (5-19); Aspartate Amino Transferase 15 U/L (0-32); Blood Urea Nitrogen 20 mg/dL (6-20); Calcium 9.2 mg/dL (8.5-10.5); Carbon Dioxide 25 mmol/L (22-29); Chloride 101 mmol/L (98-107); Globulin 4.6 g/dL (1.3-4.6); Glomerular Filtration Rate 66.8 mL/min (90-130); Glucose 146 mg/dL (65-115); Lipase 59 U/L (13-60); Osmolality Calculated 285 mOsm/kg (285-295); Potassium 4.1 mmol/L (3.5-5.1); Sodium 135 mmol/L (136-145); Total Bilirubin 0.2 mg/dL (0.15-1.2); Total Protein 8.4 g/dL (6.6-8.7)
[2021-01-31] MEDS: ondansetron 2 mg/ML SDV 2 mL 4 MG IVP (22:46)
[2021-01-31 22:55] LABS: Add Urine Microscopic? YES; Bilirubin Urine Neg (Negative); Blood Urine 3+ (Negative); Glucose Urine UA 4+ (Normal); Ketones Urine Negative (Negative); Leukocyte Esterase Urine 2+ (Negative); Nitrate Urine Negative (Negative); Protein Urine Trace (Negative); Specific Gravity, Urine 1.015 (1.005-1.030); Urine Appearance Cloudy (CLEAR); Urine Color Yellow (Yellow); Urobilinogen Urine Norm (Negative); pH Urine 5 (5-7)
[2021-01-31 22:56] LABS: Add Urine Culture? No; Bacteria Urine 2+ /hpf; RBC Urine 25-40 /hpf (0-2); Squamous Epithelial Cell Urine 25-40 /hpf (0-5); WBC Urine 15-25 /hpf (0-5)
[2021-01-31] MEDS: cefTRIAXone 1,000 MG in sodium chloride 0.9% (plus) 50 ML 100 MG IV (23:24)
[2021-01-31] MEDS: ketorolac 30 mg/mL INJ 15 MG IVP (23:24)
[2021-02-01 00:07] VITALS: BP 127/79; PULSE 87; RESP 20; O2SAT 98
== END 2021-02-01 00:07 | disposition home or self-care (01) ==
PROVIDERS: Emergency Medicine; Emergency Provider Nurse Practitioner Family; PCP Registered Nurse
DX: N30.01 Acute cystitis with hematuria (principal); R10.84 Generalized abdominal pain; Z79.4 Long term (current) use of insulin; E78.5 Hyperlipidemia, unspecified; I10 Essential (primary) hypertension; Z87.891 Personal history of nicotine dependence
CPT/HCPCS: 80053; 81001; 83690; 85025; 96365; 96375; 99283; J0696; J1885; J2405

== ENCOUNTER → 2021-02-05 08:57 | Outpatient (BNVA) | payer MEDICARE, MEDICAID, SELFPAY | PROVIDERS: PCP Registered Nurse; Visit Provider Nurse Practitioner | DX: R41.83 Borderline intellectual functioning (principal); F41.1 Generalized anxiety disorder | CPT/HCPCS: 99214 ==

== ENCOUNTER 2021-02-10 23:58 | Emergency (ER) | payer MEDICARE, MEDICAID, SELFPAY ==
[2021-02-11 00:11] VITALS: BP 125/66; PULSE 78; RESP 18; TEMP 37.2; O2SAT 97; BMI 57.4
--- NOTE | 2021-02-11 02:10 | W.ED.FEMALGU ---
HPI - Female Genitourinary General: Chief complaint: Vaginal Bleeding Stated complaint: n/v/excessive vaginal bleeding Time Seen by Provider: 02/11/21 01:49 History of Present Illness: HPI Narrative: Patient is a 50-year-old female comes to the ED with hematuria. Patient says symptoms started earlier today. She says whenever she goes to urinate she has a little bit of red blood in her urine. She also endorses having some mild lower back pain as well. Denies any fever, chills, nausea/vomiting, flank pain or dysuria. Denies any history of kidney stones. Associated symptoms: Deny abdominal pain, headache(s) or nausea Date of Last Menstrual Period: 03/19/20 Review of Systems Const: Denies: fever(s), chills or fatigue Eyes: Denies: change in vision or eye discomfort ENMT: Denies: throat pain, odynophagia, nasal discharge or nasal congestion Card: Denies: chest pain, palpitations, edema, swelling of feet/ankles, dyspnea on exertion or orthopnea Resp: Denies: dyspnea, productive cough or non-productive cough GI: Denies: abdominal pain, nausea, vomiting, diarrhea, constipation or hematochezia : Reports: hematuria; Denies: flank pain or dysuria Musc: Reports: back pain (bilateral lower back pain); Denies: neck pain or extremity swelling Skin/Breast: Denies: rash or new lesions Neuro: Denies: headache(s), numbness in extremities or weakness in extremities PFS ED PFSH: Medical History Acute serous otitis media of left ear Anxiety Borderline intellectual functioning Controlled type 2 diabetes mellitus, without long-term current use of insulin Depression Dyslipidemia Enrolled in chronic care management Generalized anxiety disorder GERD (gastroesophageal reflux disease) Hypertension Hypothyroidism Obesity BHARAT (obstructive sleep apnea) Seizure disorder Tinnitus Surgical History History of colonoscopy with polypectomy (~09/2018) History of esophagogastroduodenoscopy (EGD) (~09/2018) History of hysterectomy with oophorectomy History of laparoscopic cholecystectomy Family History Grandmother Cancer Father Lung disease Diabetes Denies family history of Anesthesia complication Bleeding disorder Social History Smoking and tobacco status: never smoked Quit status (tobacco): has quit using tobacco Second hand smoke exposure: No Smoking risk assessment/counseling performed?: No Alcohol intake: never Desire information about alcohol rehabilitation?: No Counseling given: No Desire information about substance/drug rehabilitation?: No Counseling given: No Adopted: No Caregiver/support person: Yes Lives independently: Yes Housing: House Marital status: Single Highest education level completed: High School Graduate service: No Current occupational status: employed 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 Current occupational exposures/hazards: No Pets and animals: Yes History of recent travel: No Sexually active: Yes Ania/Christianity: None Special ania needs: No Agree to transfusion: Yes Financial difficulty paying for basics: Not Very Hard Female Reproductive History: Date of last menstrual period: 03/19/20 Physical Exam Const: COMMON NORMALS: no acute distress, patient oriented x3 and alert GENERAL APPEARANCE: cooperative and comfortable NUTRITIONAL APPEARANCE: obese HENMT: COMMON NORMALS: normocephalic HEAD & SCALP: normocephalic MOUTH: Normal oral and palatal mucosa present THROAT: posterior oropharynx normal and uvula midline Neck/C-Spine: COMMON NORMALS: supple GENERAL: Yes normal visual inspection Resp: COMMON NORMALS: normal respiratory effort, No retractions, No use of accessory muscles and clear to auscultation bilaterally AUSCULTATION: clear to auscultation bilaterally Cardio: COMMON NORMALS: regular rate, regular rhythm, S1 normal heart sound present, S2 normal heart sound present, No gallops present (Cardio), No clicks present (Cardio), No murmurs present (Cardio) and Peripheral pulses 2+ throughout RATE: regular rate RHYTHM: regular rhythm HEART SOUNDS: S1 normal heart sound present and S2 normal heart sound present PERIPHERAL PULSES: Peripheral pulses 2+ throughout GI: COMMON NORMALS: Normal to inspection, nondistended, normoactive bowel sounds present, Soft to palpation, non-tender and no masses INSPECTION: Yes central obesity PALPATION: Yes Soft to palpation : COMMON NORMALS: Yes no CVA tenderness BLADDER/KIDNEY EXAM: Yes no CVA tenderness Back/Pelvis: COMMON NORMALS: no CVA tenderness Extremity: COMMON NORMALS: normal to inspection Neuro: COMMON NORMALS: patient oriented x3 and moves all extremities SENSORIUM/ORIENTATION: Yes alert Skin: GENERAL SKIN EXAM: dry skin Course Vital Signs: Vital signs: Vital Signs Temperature 98.9 F 02/11/21 00:11 Pulse Rate 78 02/11/21 00:11 Respiratory Rate 18 02/11/21 00:11 Blood Pressure 125/66 02/11/21 00:11 Pulse Oximetry 97 02/11/21 00:11 MDM - Female MDM Narrative: Medical decision making narrative: Patient is a 50-year-old female comes to the ED with dysuria and mild bilateral lower back pain. Denies any nausea/vomiting, fever, chills, dysuria. Exam shows a patient in no acute distress or pain. She sitting comfortably on exam bed monitor the room. Or other remarkable exam findings. UA showed signs of UTI. Patient was diagnosed with a UTI and discharged home on cefdinir. She was told to follow-up with PCP in 7 to 10 days for reevaluation. Return to ED precautions given. Patient understood agree with plan. Lab Data: Attestation: I reviewed the patient's lab results. Labs: Lab Results 02/11/21 Range/Units 01:38 Urine Color Yellow (Yellow) Urine Appearance Sl cloudy A (CLEAR) Urine pH 5 (5-7) Ur Specific Gravit y 1.010 (1.005-1.030) Urine Protein Neg (Negative) Urine Glucose (UA) 4+ H (Normal) Urine Ketones Negative (Negative) Urine Blood 3+ H (Negative) Urine Nitrate Negative (Negative) Urine Bilirubin Neg (Negative) Urine Urobilinogen Norm (Negative) mg/dL Ur Leukocyte Cleo ase 1+ H (Negative) Urine RBC 40-50 H (0-2) /hpf Urine WBC 15-25 H (0-5) /hpf Ur Squamous Epith Cells 25-40 H (0-5) /hpf Amorphous Sediment Not Reportable Urine Bacteria Trace (NONE) /hpf Urine Mucus Trace /hpf Discharge Plan Discharge Patient Disposition: Home Clinical Impression: UTI (urinary tract infection) Qualifiers: Urinary tract infection type: acute cystitis Hematuria presence: with hematuria Qualified Code(s): N30.01 - Acute cystitis with hematuria Condition: Stable Prescriptions: New cefdinir 300 mg capsule 300 mg PO BID 10 Days Qty: 20 RF: 0 No Action montelukast [Singulair] 10 mg tablet 10 mg PO DAILY Qty: 90 RF: 1 cyclobenzaprine 10 mg tablet 10 mg PO .HS PRN (Reason: muscle spasm) Qty: 7 RF: 0 docusate sodium 100 mg capsule 100 mg PO PRN RF: 0 levothyroxine 100 mcg capsule 100 mcg PO DAILY RF: 0 lactulose 10 gram/15 mL solution 10 gm PO BID 7 Days Qty: 210 RF: 0 buspirone 15 mg tablet 15 mg PO TID Qty: 90 RF: 2 citalopram [Celexa] 20 mg tablet 20 mg PO DAILY Qty: 30 RF: 2 (DME) lancets [Accu-Chek Softclix Lancets] Misc See Rx Instructions .ROUTE .MEDSUPPLY Qty: 50 RF: 0 (DME) blood-glucose meter [Accu-Chek Leeann Plus Meter] Misc See Rx Instructions .ROUTE .MEDSUPPLY Qty: 1 RF: 0 (DME) GLUCOMETER Qty: 1 RF: 0 (DME) lancets [Accu-Chek Fastclix Lancet Drum] Misc See Rx Instructions .ROUTE .MEDSUPPLY Qty: 50 RF: 0 (DME) lancing device with lancets [Accu-Chek Soft Dev Lancets] Kit See Rx Instructions .ROUTE .MEDSUPPLY Qty: 100 RF: 2 (DME) pen needle, diabetic [BD Ultra-Fine Short Pen Needle] 31 gauge x 5/16 needle See Rx Instructions .ROUTE .MEDSUPPLY Qty: 100 RF: 2 indapamide 2.5 mg tablet 2.5 mg PO QAM Qty: 30 RF: 5 simvastatin 20 mg tablet 20 mg PO DAILY Qty: 30 RF: 5 amlodipine [Norvasc] 5 mg tablet 5 mg PO DAILY Qty: 30 RF: 5 pantoprazole [Protonix] 40 mg tablet,delayed release (DR/EC) 40 mg PO BID Qty: 180 RF: 0 (DME) Accu-Chek Leeann Plus test strp Strip See Rx Instructions .ROUTE .MEDSUPPLY Qty: 100 RF: 1 losartan 50 mg tablet 50 mg PO DAILY Qty: 14 RF: 0 liothyronine 5 mcg tablet 5 mcg PO DAILY RF: 0 paroxetine HCl 20 mg tablet 20 mg PO DAILY RF: 0 triamcinolone acetonide 0.1 % ointment 1 applic topical BID Qty: 453.6 RF: 0 Tylenol Extra Strength 500 mg Tablet 1,000 mg PO PRN RF: 0 insulin lispro 100 unit/mL insulin pen See Rx Instructions .ROUTE .COMPLEX RF: 0 Victoza 3-Solitario 0.6 mg/0.1 mL (18 mg/3 mL) pen injector 1.8 mg SUBCUT DAILY@20 RF: 0 Jardiance 10 mg Tablet 10 mg PO DAILY RF: 0 Robaxin-750 750 mg tablet 750 mg PO Q6H Qty: 30 RF: 0 Naprosyn 500 mg tablet 500 mg PO BID PRN (Reason: pain) Qty: 20 RF: 0 Anti-Itch (HC) 1 % ointment 1 applic topical BID PRN (Reason: allergic reaction) Qty: 28.35 RF: 0 Zofran 4 mg tablet 4 mg PO Q4H PRN (Reason: Nausea And Vomiting) Qty: 10 RF: 0 mupirocin 2 % ointment 1 applic TOPICAL BID Qty: 22 RF: 0 hydrocortisone 1 % cream 1 applic TOPICAL BID Qty: 14.2 RF: 0 Desitin Rapid Relief 13 % cream 1 applic topical TID PRN (Reason: skin irritation) Qty: 454 RF: 0 Cortisone (hydrocortisone) 1 % cream 1 applic topical TID PRN (Reason: skin irritation) Qty: 454 RF: 0 Discharge Orders: Discharge ED (Routine); Ordered 02/11/21 Ordered By: Khris Craig Referrals: Shivani Schneider FNP [Primary Care Provider] - Discharge Diet: Regular Discharge Activity: Resume usual activity Patient Instructions: Urinary Tract Infection in Women (ED) Activity Restrictions/Additional Instructions: Follow-up with medical provider as directed in 7 days for reevaluation. Take medications as prescribed. Return to the ER or your medical provider if condition worsens. Drink plenty of water to help flush out UTI. Please read and understand discharge instructions. If any questions, please ask. Coding Level of Care Code ED Blow Off Worker for Robyn Fwd Exam Comprehensive
[2021-02-11 02:42] LABS: Urine Color Yellow (Yellow); pH Urine 5 (5-7)
[2021-02-11 02:43] LABS: Bilirubin Urine Neg (Negative); Blood Urine 3+ (Negative); Glucose Urine UA 4+ (Normal); Ketones Urine Negative (Negative); Leukocyte Esterase Urine 1+ (Negative); Nitrate Urine Negative (Negative); Protein Urine Neg (Negative); Urobilinogen Urine Norm (Negative)
[2021-02-11 02:53] LABS: RBC Urine 40-50 /hpf (0-2); WBC Urine 15-25 /hpf (0-5)
[2021-02-11 02:54] LABS: Add Urine Culture? No; Bacteria Urine TRACE /hpf; Mucus Urine TRACE /hpf; Squamous Epithelial Cell Urine 25-40 /hpf (0-5)
[2021-02-11] MEDS: cefdinir 300 MG CAPSULE PO (03:40)
[2021-02-11 03:41] VITALS: PULSE 72; RESP 18; O2SAT 98
== END 2021-02-11 03:43 | disposition home or self-care (01) ==
PROVIDERS: Emergency Provider Physician Assistant; PCP Registered Nurse
DX: N30.01 Acute cystitis with hematuria (principal); Z79.4 Long term (current) use of insulin; E11.9 Type 2 diabetes mellitus without complications; E78.5 Hyperlipidemia, unspecified; I10 Essential (primary) hypertension; Z87.891 Personal history of nicotine dependence
CPT/HCPCS: 81001; 99283

== ENCOUNTER 2021-04-11 20:42 | Emergency (ER) | payer MEDICARE, MEDICAID, SELFPAY ==
[2021-04-11 20:49] VITALS: BP 180/117; PULSE 63; RESP 16; TEMP 36.6; O2SAT 99; BMI 52.0
--- NOTE | 2021-04-11 21:16 | W.ED.NAVMDI ---
HPI - Nausea/Vomiting/Diarrhea General: Chief complaint: Nausea/Vomiting/Diarrhea Stated complaint: bloody stool, n/v Time Seen by Provider: 04/11/21 20:48 Source: patient Mode of arrival: ambulatory Limitations: no limitations History of Present Illness: HPI Narrative: 51-year-old female states that she had slight amount of blood in her stool today. States was just on the outside of the stool was only once. She denies any bleeding currently. She also had one episode of vomiting roughly an hour ago. Denies any abdominal pain. Denies any fevers. Denies any worsening improving factors. Associated nausea: Yes Associated symtoms: Reports nausea; Denies chest pain, dysuria or headache(s) Review of Systems Const: Denies: fever(s), chills, body aches or change in appetite Eyes: Denies: blurry vision or eye discomfort ENMT: Denies: throat pain or dental pain Card: Denies: chest pain Resp: Denies: dyspnea GI: Reports: nausea, vomiting and hematochezia : Denies: dysuria Musc: Denies: neck pain or back pain Skin/Breast: Denies: rash Neuro: Denies: headache(s) Psych: Denies: depression Red/Lymph: Denies: easy bruising All/Imm: Denies: urticaria PFSH ED PFSH: Medical History (Updated 04/11/21 @ 22:53 by Patricia Arroyo MD) Acute serous otitis media of left ear Anxiety Borderline intellectual functioning Controlled type 2 diabetes mellitus, without long-term current use of insulin Depression Dyslipidemia Enrolled in chronic care management Generalized anxiety disorder GERD (gastroesophageal reflux disease) Hypertension Hypothyroidism Obesity BHARAT (obstructive sleep apnea) Seizure disorder Tinnitus Surgical History History of colonoscopy with polypectomy (~09/2018) History of esophagogastroduodenoscopy (EGD) (~09/2018) History of hysterectomy with oophorectomy History of laparoscopic cholecystectomy Family History Grandmother Cancer Father Lung disease Diabetes Denies family history of Anesthesia complication Bleeding disorder Social History Smoking and tobacco status: never smoked Quit status (tobacco): has quit using tobacco Second hand smoke exposure: No Smoking risk assessment/counseling performed?: No Alcohol intake: never Desire information about alcohol rehabilitation?: No Counseling given: No Desire information about substance/drug rehabilitation?: No Counseling given: No Adopted: No Caregiver/support person: Yes Lives independently: Yes Housing: House Marital status: Single Highest education level completed: High School Graduate service: No Current occupational status: employed 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 Current occupational exposures/hazards: No Pets and animals: Yes History of recent travel: No Sexually active: Yes Ania/Islam: None Special ania needs: No Agree to transfusion: Yes Financial difficulty paying for basics: Not Very Hard Female Reproductive History: Date of last menstrual period: 03/19/20 Physical Exam Const: COMMON NORMALS: no acute distress, patient oriented x3 and healthy appearing HENMT: COMMON NORMALS: normocephalic and atraumatic HEAD & SCALP: normocephalic and atraumatic Eye: COMMON NORMALS: Equal, round and reactive pupils present and EOMs intact bilaterally PUPIL: Yes Equal, round and reactive pupils present Neck/C-Spine: COMMON NORMALS: full ROM and supple Chest: COMMONS NORMALS: normal inspection of the chest and normal palpation of entire chest wall Resp: COMMON NORMALS: normal respiratory effort, No retractions, No use of accessory muscles and clear to auscultation bilaterally AUSCULTATION: clear to auscultation bilaterally Cardio: COMMON NORMALS: regular rate, regular rhythm and No murmurs present (Cardio) RATE: regular rate RHYTHM: regular rhythm GI: COMMON NORMALS: Normal to inspection, nondistended, normoactive bowel sounds present, Soft to palpation, non-tender and no masses PALPATION: Yes Soft to palpation : OTHER: no hemorrhoids hemoccult neg Extremity: COMMON NORMALS: normal to inspection and full ROM Neuro: COMMON NORMALS: patient oriented x3, moves all extremities and no focal motor deficits Psych: COMMON NORMALS: mental status grossly normal, Normal thought process present and cooperative THOUGHT PROCESS: Normal thought process present Skin: COMMON NORMALS: no rashes or lesions noted and no wounds GENERAL SKIN EXAM: no rashes or lesions noted Course Vital Signs: Vital signs: Vital Signs Temperature 97.9 F 04/11/21 20:49 Pulse Rate 63 04/11/21 20:49 Respiratory Rate 16 04/11/21 20:49 Blood Pressure 180/117 04/11/21 20:49 Pulse Oximetry 99 04/11/21 20:49 MDM - Nausea/Vomiting/Diarrhea MDM Narrative: Medical decision making narrative: Tonia presents with rectal bleeding since resolved. Her hemoglobin here is normal and she has no signs of major bleeding. Her exam. Blood work is all normal. She is stable for discharge will place her on nausea medicine. She is to follow-up with PCP in 2 to 4 days return if worsening. She understands agrees plan. Lab Data: Labs: Lab Results 04/11/21 04/11/21 Range/Units 21:46 21:46 WBC 6.3 (4.0-10.0) 10^3/ uL RBC 5.02 (4.1-5.3) 10^6/u L Hgb 14.3 (11.5-15.3) g/dL Hct 45.3 (37.0-47.0) % MCV 90.2 (81-99) fL MCH 28.5 (28.0-34.0) pg MCHC 31.6 (30.0-36.0) g/dL RDW 14.3 (12.1-15.1) % Plt Count 258 (130-400) 10^3/c mm MPV 10.1 (7.4-10.4) fL Neut % (Auto) 64.3 % Lymph % (Auto) 25.6 % [place] % (Auto) 7.2 % Eos % (Auto) 2.1 % Baso % (Auto) 0.5 % Neut # (Auto) 4.02 (1.8-7.7) 10^3/u L Lymph # (Auto) 1.6 (0.8-4.8) 10^3/u L [place] # (Auto) 0.5 (0.2-0.9) 10^3/u L Eos # (Auto) 0.1 (0.0-0.8) 10^3/u L Baso # (Auto) 0.0 (0.0-0.1) 10^3/u L Nucleated RBC % (a uto) 0 % Nucleated RBCs # 0.0 /100WBC Sodium 138 (136-145) mmol/L Potassium 3.3 L (3.5-5.1) mmol/L Chloride 103 (98-107) mmol/L Carbon Dioxide 24 (22-29) mmol/L Anion Gap 14.3 (5-19) BUN 11 (6-20) mg/dL Creatinine 0.7 (0.5-0.9) mg/dL GFR Calculation 88.9 L (90-130) mL/min Glucose 113 (65-115) mg/dL Calculated Osmolal ity 286 (285-295) mOsm/k g Calcium 8.8 (8.5-10.5) mg/dL Total Bilirubin 0.4 (0.15-1.2) mg/dL AST 27 (0-32) U/L ALT 24 (0-33) U/L Alkaline Phosphata se 72 (35-105) IU/L Total Protein 7.6 (6.6-8.7) g/dL Albumin 4.0 (3.5-5.2) g/dL Globulin 3.6 (1.3-4.6) g/dL Discharge Plan Discharge Patient Disposition: Home Clinical Impression: Vomiting, Lower GI bleed Condition: Stable Prescriptions: New ondansetron 4 mg tablet,disintegrating 4 mg PO Q6H PRN (Reason: nausea and vomiting) Qty: 14 RF: 0 No Action montelukast [Singulair] 10 mg tablet 10 mg PO DAILY Qty: 90 RF: 1 triamcinolone acetonide 0.1 % cream 1 applic topical TID Qty: 80 RF: 0 docusate sodium 100 mg capsule 100 mg PO PRN RF: 0 levothyroxine 100 mcg capsule 100 mcg PO DAILY RF: 0 lactulose 10 gram/15 mL solution 10 gm PO BID 7 Days Qty: 210 RF: 0 buspirone 15 mg tablet 15 mg PO TID Qty: 90 RF: 2 citalopram [Celexa] 20 mg tablet 20 mg PO DAILY Qty: 30 RF: 2 (DME) lancets [Accu-Chek Softclix Lancets] Misc See Rx Instructions .ROUTE .MEDSUPPLY Qty: 50 RF: 0 (DME) blood-glucose meter [Accu-Chek Leeann Plus Meter] Misc See Rx Instructions .ROUTE .MEDSUPPLY Qty: 1 RF: 0 (DME) GLUCOMETER Qty: 1 RF: 0 (DME) lancets [Accu-Chek Fastclix Lancet Drum] Misc See Rx Instructions .ROUTE .MEDSUPPLY Qty: 50 RF: 0 (DME) lancing device with lancets [Accu-Chek Soft Dev Lancets] Kit See Rx Instructions .ROUTE .MEDSUPPLY Qty: 100 RF: 2 (DME) pen needle, diabetic [BD Ultra-Fine Short Pen Needle] 31 gauge x 5/16 needle See Rx Instructions .ROUTE .MEDSUPPLY Qty: 100 RF: 2 simvastatin 20 mg tablet 20 mg PO DAILY Qty: 30 RF: 5 amlodipine [Norvasc] 5 mg tablet 5 mg PO DAILY Qty: 30 RF: 5 pantoprazole [Protonix] 40 mg tablet,delayed release (DR/EC) 40 mg PO BID Qty: 180 RF: 0 (DME) Accu-Chek Leeann Plus test strp Strip See Rx Instructions .ROUTE .MEDSUPPLY Qty: 100 RF: 1 losartan 50 mg tablet 50 mg PO DAILY Qty: 14 RF: 0 liothyronine 5 mcg tablet 5 mcg PO DAILY RF: 0 paroxetine HCl 20 mg tablet 20 mg PO DAILY RF: 0 acetaminophen [Tylenol Extra Strength] 500 mg Tablet 1,000 mg PO PRN RF: 0 Victoza 3-Solitario 0.6 mg/0.1 mL (18 mg/3 mL) pen injector 1.8 mg SUBCUT DAILY@20 RF: 0 Jardiance 10 mg Tablet 10 mg PO DAILY RF: 0 methocarbamol [Robaxin-750] 750 mg tablet 750 mg PO Q6H Qty: 30 RF: 0 naproxen [Naprosyn] 500 mg tablet 500 mg PO BID PRN (Reason: pain) Qty: 20 RF: 0 hydrocortisone [Anti-Itch (HC)] 1 % ointment 1 applic topical BID PRN (Reason: allergic reaction) Qty: 28.35 RF: 0 ondansetron HCl [Zofran] 4 mg tablet 4 mg PO Q4H PRN (Reason: Nausea And Vomiting) Qty: 10 RF: 0 cyclobenzaprine 10 mg tablet 10 mg PO BEDTIME PRN (Reason: muscle spasm) RF: 0 indapamide 2.5 mg tablet 2.5 mg PO DAILY RF: 0 mupirocin 2 % ointment 1 applic TOPICAL BID Qty: 22 RF: 0 hydrocortisone 1 % cream 1 applic TOPICAL BID Qty: 14.2 RF: 0 Desitin Rapid Relief 13 % cream 1 applic topical TID PRN (Reason: skin irritation) Qty: 454 RF: 0 Discharge Orders: Discharge ED (Routine); Ordered 04/11/21 Ordered By: Patricia Arroyo Referrals: Shivani Schneider FNP [Primary Care Provider] - 1-3 days Discharge Diet: Advance as tolerated Discharge Activity: Resume usual activity Patient Instructions: Rectal Bleeding (ED) Coding Level of Care Code ED Hatch Boss for Chg Fwd Exam Comprehensive
--- NOTE | 2021-04-11 21:25 | PC.PHAR ---
THE PT STATES THAT SHE HAS NOT BEEN TAKING ANY OF HER MEDICATION FOR AT LEAST A WEEK. SHE STATES THAT HER DOCTORS AND TRYING TO GET HER OFF MOST OF HER MEDICATION AND THAT SHE WAS FIGHTING WITH NATASHA TRYING TO GET HER MEDICATIONS FILLED.
[2021-04-11] MEDS: ondansetron 2 mg/ML SDV 2 mL 4 MG IVP (21:55)
[2021-04-11 22:37] LABS: Basophils % 0.5 %; Eosinophils # 0.1 10^3/uL (0.0-0.8); Eosinophils % 2.1 %; Hematocrit 45.3 % (37.0-47.0); Hemoglobin 14.3 g/dL (11.5-15.3); Lymphocytes # 1.6 10^3/uL (0.8-4.8); Lymphocytes % 25.6 %; Mean Corpuscular HGB Conc 31.6 g/dL (30.0-36.0); Mean Corpuscular Hemoglobin 28.5 pg (28.0-34.0); Mean Corpuscular Volume 90.2 fL (81-99); Mean Platelet Volume 10.1 fL (7.4-10.4); Monocytes # 0.5 10^3/uL (0.2-0.9); Monocytes % 7.2 %; Neutrophils # 4.02 10^3/uL (1.8-7.7); Neutrophils % 64.3 %; Nucleated Red Blood Cells % 0 %; Platelet Count 258 10^3/cmm (130-400); Red Blood Count 5.02 10^6/uL (4.1-5.3); Red Cell Distribution Width 14.3 % (12.1-15.1); White Blood Count 6.3 10^3/uL (4.0-10.0)
[2021-04-11 22:48] LABS: Alanine Aminotransferase 24 U/L (0-33); Alkaline Phosphatase 72 IU/L (35-105); Anion Gap 14.3 (5-19); Aspartate Amino Transferase 27 U/L (0-32); Blood Urea Nitrogen 11 mg/dL (6-20); Calcium 8.8 mg/dL (8.5-10.5); Carbon Dioxide 24 mmol/L (22-29); Chloride 103 mmol/L (98-107); Creatinine Clr Calc Pharmacy 144.2682; Globulin 3.6 g/dL (1.3-4.6); Glomerular Filtration Rate 88.9 mL/min (90-130); Glucose 113 mg/dL (65-115); Osmolality Calculated 286 mOsm/kg (285-295); Potassium 3.3 mmol/L (3.5-5.1); Sodium 138 mmol/L (136-145); Total Bilirubin 0.4 mg/dL (0.15-1.2); Total Protein 7.6 g/dL (6.6-8.7)
[2021-04-11 22:58] VITALS: RESP 18
== END 2021-04-11 22:58 | disposition home or self-care (01) ==
PROVIDERS: Emergency Provider Emergency Medicine; PCP Registered Nurse
DX: K92.2 Gastrointestinal hemorrhage, unspecified (principal); R11.11 Vomiting without nausea; E11.9 Type 2 diabetes mellitus without complications; E78.5 Hyperlipidemia, unspecified; I10 Essential (primary) hypertension; Z87.891 Personal history of nicotine dependence
CPT/HCPCS: 36415; 80053; 85025; 96374; 96375; 99283; J2405

== ENCOUNTER 2021-04-19 19:41 | Emergency (ER) | payer MEDICARE, MEDICAID, SELFPAY ==
[2021-04-19 19:52] VITALS: BP 150/78; PULSE 67; RESP 16; TEMP 36.7; O2SAT 98; BMI 52.4
--- NOTE | 2021-04-19 20:03 | W.ED.GENADLT ---
HPI - General Adult General: Chief complaint: General Medical Stated complaint: rash Time Seen by Provider: 04/19/21 19:56 History of Present Illness: HPI narrative: Patient has itchy rash that is on her right forearm and also her left upper thigh not sure where she got it. Cream she has at home is not working to take care of the itching. MD complaint: Rash Onset (ago): day(s) Associated symptoms: Reports rash Review of Systems Const: Denies: fever(s) or chills Skin/Breast: Reports: rash and pruritus Psych: Denies: anxiety PFSH ED PFSH: Medical History (Updated 04/19/21 @ 20:01 by PIPPA Ruiz) Acute serous otitis media of left ear Anxiety Borderline intellectual functioning Controlled type 2 diabetes mellitus, without long-term current use of insulin Depression Dyslipidemia Enrolled in chronic care management Generalized anxiety disorder GERD (gastroesophageal reflux disease) Hypertension Hypothyroidism Obesity BHARAT (obstructive sleep apnea) Seizure disorder Tinnitus Surgical History History of colonoscopy with polypectomy (~09/2018) History of esophagogastroduodenoscopy (EGD) (~09/2018) History of hysterectomy with oophorectomy History of laparoscopic cholecystectomy Family History Grandmother Cancer Father Lung disease Diabetes Denies family history of Anesthesia complication Bleeding disorder Social History Smoking and tobacco status: never smoked Quit status (tobacco): has quit using tobacco Second hand smoke exposure: No Smoking risk assessment/counseling performed?: No Alcohol intake: never Desire information about alcohol rehabilitation?: No Counseling given: No Desire information about substance/drug rehabilitation?: No Counseling given: No Adopted: No Caregiver/support person: Yes Lives independently: Yes Housing: House Marital status: Single Highest education level completed: High School Graduate service: No Current occupational status: employed 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 Patchy area on left upper thigh. Course Vital Signs: Vital signs: Vital Signs Temperature 98.1 F 04/19/21 19:52 Pulse Rate 67 04/19/21 19:52 Respiratory Rate 16 04/19/21 19:52 Blood Pressure 150/78 04/19/21 19:52 Pulse Oximetry 98 04/19/21 19:52 Discharge Plan Discharge Patient Disposition: Home Clinical Impression: Contact dermatitis Qualifiers: Contact dermatitis type: irritant Contact dermatitis trigger: other trigger Qualified Code(s): L24.89 - Irritant contact dermatitis due to other agents Condition: Stable Prescriptions: New hydrocortisone 2 % lotion 1 applic topical BID PRN (Reason: itching) Qty: 29.6 RF: 0 No Action montelukast [Singulair] 10 mg tablet 10 mg PO DAILY Qty: 90 RF: 1 triamcinolone acetonide 0.1 % cream 1 applic topical TID Qty: 80 RF: 0 docusate sodium 100 mg capsule 100 mg PO PRN RF: 0 levothyroxine 100 mcg capsule 100 mcg PO DAILY RF: 0 lactulose 10 gram/15 mL solution 10 gm PO BID 7 Days Qty: 210 RF: 0 buspirone 15 mg tablet 15 mg PO TID Qty: 90 RF: 2 citalopram [Celexa] 20 mg tablet 20 mg PO DAILY Qty: 30 RF: 2 (DME) lancets [Accu-Chek Softclix Lancets] Misc See Rx Instructions .ROUTE .MEDSUPPLY Qty: 50 RF: 0 (DME) blood-glucose meter [Accu-Chek Leeann Plus Meter] Misc See Rx Instructions .ROUTE .MEDSUPPLY Qty: 1 RF: 0 (DME) GLUCOMETER Qty: 1 RF: 0 (DME) lancets [Accu-Chek Fastclix Lancet Drum] Misc See Rx Instructions .ROUTE .MEDSUPPLY Qty: 50 RF: 0 (DME) lancing device with lancets [Accu-Chek Soft Dev Lancets] Kit See Rx Instructions .ROUTE .MEDSUPPLY Qty: 100 RF: 2 (DME) pen needle, diabetic [BD Ultra-Fine Short Pen Needle] 31 gauge x 5/16 needle See Rx Instructions .ROUTE .MEDSUPPLY Qty: 100 RF: 2 simvastatin 20 mg tablet 20 mg PO DAILY Qty: 30 RF: 5 amlodipine [Norvasc] 5 mg tablet 5 mg PO DAILY Qty: 30 RF: 5 pantoprazole [Protonix] 40 mg tablet,delayed release (DR/EC) 40 mg PO BID Qty: 180 RF: 0 (DME) Accu-Chek Leeann Plus test strp Strip See Rx Instructions .ROUTE .MEDSUPPLY Qty: 100 RF: 1 losartan 50 mg tablet 50 mg PO DAILY Qty: 14 RF: 0 liothyronine 5 mcg tablet 5 mcg PO DAILY RF: 0 paroxetine HCl 20 mg tablet 20 mg PO DAILY RF: 0 acetaminophen [Tylenol Extra Strength] 500 mg Tablet 1,000 mg PO PRN RF: 0 Victoza 3-Solitario 0.6 mg/0.1 mL (18 mg/3 mL) pen injector 1.8 mg SUBCUT DAILY@20 RF: 0 Jardiance 10 mg Tablet 10 mg PO DAILY RF: 0 methocarbamol [Robaxin-750] 750 mg tablet 750 mg PO Q6H Qty: 30 RF: 0 naproxen [Naprosyn] 500 mg tablet 500 mg PO BID PRN (Reason: pain) Qty: 20 RF: 0 hydrocortisone [Anti-Itch (HC)] 1 % ointment 1 applic topical BID PRN (Reason: allergic reaction) Qty: 28.35 RF: 0 ondansetron HCl [Zofran] 4 mg tablet 4 mg PO Q4H PRN (Reason: Nausea And Vomiting) Qty: 10 RF: 0 cyclobenzaprine 10 mg tablet 10 mg PO BEDTIME PRN (Reason: muscle spasm) RF: 0 indapamide 2.5 mg tablet 2.5 mg PO DAILY RF: 0 ondansetron 4 mg tablet,disintegrating 4 mg PO Q6H PRN (Reason: nausea and vomiting) Qty: 14 RF: 0 mupirocin 2 % ointment 1 applic TOPICAL BID Qty: 22 RF: 0 hydrocortisone 1 % cream 1 applic TOPICAL BID Qty: 14.2 RF: 0 Desitin Rapid Relief 13 % cream 1 applic topical TID PRN (Reason: skin irritation) Qty: 454 RF: 0 Discharge Orders: Discharge ED (Routine); Ordered 04/19/21 Ordered By: Joey Hook Referrals: Shivani Schneider FNP [Primary Care Provider] - Discharge Diet: Usual diet Discharge Activity: Resume usual activity Patient Instructions: Contact Dermatitis (ED) Activity Restrictions/Additional Instructions: Follow-up with medical provider as directed. Take medications as prescribed. Return to the ER or your medical provider if condition worsens. Please read and understand discharge instructions. If any questions ask please. Coding Level of Care Code ED Graphic Design Specialist for Robyn Ruiz
== END 2021-04-19 20:25 | disposition home or self-care (01) ==
LOC: ER 20:05
PROVIDERS: Emergency Provider Nurse Practitioner Family; PCP Registered Nurse
DX: L24.89 Irritant contact dermatitis due to other agents (principal); E11.9 Type 2 diabetes mellitus without complications; E78.5 Hyperlipidemia, unspecified; I10 Essential (primary) hypertension; Z87.891 Personal history of nicotine dependence
CPT/HCPCS: 99282

== ENCOUNTER → 2021-04-30 10:24 | Outpatient (BNVA) | payer MEDICARE, MEDICAID, SELFPAY | PROVIDERS: PCP Registered Nurse; Visit Provider Nurse Practitioner | DX: F41.1 Generalized anxiety disorder (principal); R41.83 Borderline intellectual functioning | CPT/HCPCS: 99214 ==

== ENCOUNTER → 2021-05-04 11:12 | Outpatient (BNVA) | payer MEDICARE, MEDICAID, SELFPAY | PROVIDERS: PCP Registered Nurse; Visit Provider Registered Nurse Neonatal Intensive Care | DX: M25.519 Pain in unspecified shoulder (principal); M25.512 Pain in left shoulder; M19.90 Unspecified osteoarthritis, unspecified site; Z71.89 Other specified counseling | CPT/HCPCS: 73030 ==

== ENCOUNTER 2021-05-10 23:50 | Emergency (ER) | payer MEDICARE, MEDICAID, SELFPAY ==
[2021-05-11] VITALS: BP 120/81; PULSE 52; RESP 16; TEMP 36.4; O2SAT 97; BMI 50.3
[2021-05-11 00:20] VITALS: PULSE 81; RESP 18; O2SAT 99
--- NOTE | 2021-05-11 00:34 | W.ED.BACK ---
HPI - Back Pain/Injury General: Chief Complaint: Back Pain/Injury Stated Complaint: Back Pain\Rash Time Seen by Provider: 05/11/21 00:31 Source: patient Mode of arrival: ambulatory Limitations: no limitations History of Present Illness: HPI Narrative: 51-year-old female has a history of chronic back pain. She states that over the last 2 days she has been having some thoracic back pain she rates a 5 out of 10 is worse with movement. States improved with rest. Denies any recent injuries. Denies any bowel or bladder incontinence. Associated symptoms: Deny abdominal pain, chills, dysuria, fever(s), nausea or vomiting Review of Systems Const: Denies: fever(s), chills, body aches or change in appetite Eyes: Denies: blurry vision or eye discomfort ENMT: Denies: throat pain or dental pain Card: Denies: chest pain Resp: Denies: dyspnea GI: Denies: abdominal pain, nausea, vomiting or diarrhea : Denies: dysuria Musc: Reports: back pain Skin/Breast: Denies: rash Neuro: Denies: headache(s) Psych: Denies: depression Red/Lymph: Denies: easy bruising All/Imm: Denies: urticaria PFSH ED PFSH: Medical History (Updated 05/11/21 @ 00:34 by Patricia Arroyo MD) Acute serous otitis media of left ear Anxiety Borderline intellectual functioning Controlled type 2 diabetes mellitus, without long-term current use of insulin Depression Dyslipidemia Enrolled in chronic care management Generalized anxiety disorder GERD (gastroesophageal reflux disease) Hypertension Hypothyroidism Obesity BHARAT (obstructive sleep apnea) Seizure disorder Tinnitus Surgical History History of colonoscopy with polypectomy (~09/2018) History of esophagogastroduodenoscopy (EGD) (~09/2018) History of hysterectomy with oophorectomy History of laparoscopic cholecystectomy Family History Grandmother Cancer Father Lung disease Diabetes Denies family history of Anesthesia complication Bleeding disorder Social History Smoking and tobacco status: never smoked Quit status (tobacco): has quit using tobacco Second hand smoke exposure: No Smoking risk assessment/counseling performed?: No Alcohol intake: never Desire information about alcohol rehabilitation?: No Counseling given: No Desire information about substance/drug rehabilitation?: No Counseling given: No Adopted: No Caregiver/support person: Yes Lives independently: Yes Housing: House Marital status: Single Highest education level completed: High School Graduate service: No Current occupational status: employed 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 Current occupational exposures/hazards: No Pets and animals: Yes History of recent travel: No Sexually active: Yes Ania/Buddhism: None Special ania needs: No Agree to transfusion: Yes Financial difficulty paying for basics: Not Very Hard Female Reproductive History: Date of last menstrual period: 03/19/20 Physical Exam Const: COMMON NORMALS: no acute distress, patient oriented x3 and healthy appearing HENMT: COMMON NORMALS: normocephalic and atraumatic HEAD & SCALP: normocephalic and atraumatic Eye: COMMON NORMALS: Equal, round and reactive pupils present and EOMs intact bilaterally PUPIL: Yes Equal, round and reactive pupils present Neck/C-Spine: COMMON NORMALS: full ROM and supple Chest: COMMONS NORMALS: normal inspection of the chest and normal palpation of entire chest wall Resp: COMMON NORMALS: normal respiratory effort, No retractions, No use of accessory muscles and clear to auscultation bilaterally AUSCULTATION: clear to auscultation bilaterally Cardio: COMMON NORMALS: regular rate, regular rhythm and No murmurs present (Cardio) RATE: regular rate RHYTHM: regular rhythm GI: COMMON NORMALS: Normal to inspection, nondistended, normoactive bowel sounds present, Soft to palpation, non-tender and no masses PALPATION: Yes Soft to palpation Extremity: COMMON NORMALS: normal to inspection and full ROM Neuro: COMMON NORMALS: patient oriented x3, moves all extremities and no focal motor deficits Psych: COMMON NORMALS: mental status grossly normal, Normal thought process present and cooperative THOUGHT PROCESS: Normal thought process present Skin: COMMON NORMALS: no rashes or lesions noted and no wounds GENERAL SKIN EXAM: no rashes or lesions noted Course Vital Signs: Vital signs: Vital Signs Temperature 97.5 F L 05/11/21 00:00 Pulse Rate 81 05/11/21 00:20 Respiratory Rate 18 05/11/21 00:20 Blood Pressure 120/81 05/11/21 00:00 Pulse Oximetry 99 05/11/21 00:20 MDM - Back Pain/Injury MDM Narrative: Medical decision making narrative: Patient presents here with back pain is likely muscular in nature. She is well-appearing here and will place her on Naprosyn Robaxin. She is stable for discharge and return if worsening. Discharge Plan Discharge Patient Disposition: Home Clinical Impression: Thoracic back pain Qualifiers: Chronicity: acute Back pain laterality: bilateral Qualified Code(s): M54.6 - Pain in thoracic spine Condition: Stable Prescriptions: New Robaxin-750 750 mg tablet 750 mg PO Q6H Qty: 30 RF: 0 Naprosyn 500 mg tablet 500 mg PO BID PRN (Reason: pain) Qty: 20 RF: 0 No Action montelukast [Singulair] 10 mg tablet 10 mg PO DAILY Qty: 90 RF: 1 triamcinolone acetonide 0.1 % cream 1 applic topical TID Qty: 80 RF: 0 docusate sodium 100 mg capsule 100 mg PO PRN RF: 0 levothyroxine 100 mcg capsule 100 mcg PO DAILY RF: 0 lactulose 10 gram/15 mL solution 10 gm PO BID 7 Days Qty: 210 RF: 0 citalopram [Celexa] 20 mg tablet 20 mg PO DAILY Qty: 30 RF: 2 buspirone 15 mg tablet 15 mg PO TID Qty: 90 RF: 2 (DME) lancets [Accu-Chek Softclix Lancets] Misc See Rx Instructions .ROUTE .MEDSUPPLY Qty: 50 RF: 0 (DME) blood-glucose meter [Accu-Chek Leeann Plus Meter] Misc See Rx Instructions .ROUTE .MEDSUPPLY Qty: 1 RF: 0 (DME) GLUCOMETER Qty: 1 RF: 0 (DME) lancets [Accu-Chek Fastclix Lancet Drum] Misc See Rx Instructions .ROUTE .MEDSUPPLY Qty: 50 RF: 0 (DME) lancing device with lancets [Accu-Chek Soft Dev Lancets] Kit See Rx Instructions .ROUTE .MEDSUPPLY Qty: 100 RF: 2 (DME) pen needle, diabetic [BD Ultra-Fine Short Pen Needle] 31 gauge x 5/16 needle See Rx Instructions .ROUTE .MEDSUPPLY Qty: 100 RF: 2 simvastatin 20 mg tablet 20 mg PO DAILY Qty: 30 RF: 5 amlodipine [Norvasc] 5 mg tablet 5 mg PO DAILY Qty: 30 RF: 5 pantoprazole [Protonix] 40 mg tablet,delayed release (DR/EC) 40 mg PO BID Qty: 180 RF: 0 (DME) Accu-Chek Leeann Plus test strp Strip See Rx Instructions .ROUTE .MEDSUPPLY Qty: 100 RF: 1 losartan 50 mg tablet 50 mg PO DAILY Qty: 14 RF: 0 liothyronine 5 mcg tablet 5 mcg PO DAILY RF: 0 paroxetine HCl 20 mg tablet 20 mg PO DAILY RF: 0 acetaminophen [Tylenol Extra Strength] 500 mg Tablet 1,000 mg PO PRN RF: 0 Victoza 3-Solitario 0.6 mg/0.1 mL (18 mg/3 mL) pen injector 1.8 mg SUBCUT DAILY@20 RF: 0 Jardiance 10 mg Tablet 10 mg PO DAILY RF: 0 methocarbamol [Robaxin-750] 750 mg tablet 750 mg PO Q6H Qty: 30 RF: 0 naproxen [Naprosyn] 500 mg tablet 500 mg PO BID PRN (Reason: pain) Qty: 20 RF: 0 hydrocortisone [Anti-Itch (HC)] 1 % ointment 1 applic topical BID PRN (Reason: allergic reaction) Qty: 28.35 RF: 0 ondansetron HCl [Zofran] 4 mg tablet 4 mg PO Q4H PRN (Reason: Nausea And Vomiting) Qty: 10 RF: 0 cyclobenzaprine 10 mg tablet 10 mg PO BEDTIME PRN (Reason: muscle spasm) RF: 0 indapamide 2.5 mg tablet 2.5 mg PO DAILY RF: 0 ondansetron 4 mg tablet,disintegrating 4 mg PO Q6H PRN (Reason: nausea and vomiting) Qty: 14 RF: 0 hydrocortisone 2 % lotion 1 applic topical BID PRN (Reason: itching) Qty: 29.6 RF: 0 mupirocin 2 % ointment 1 applic TOPICAL BID Qty: 22 RF: 0 hydrocortisone 1 % cream 1 applic TOPICAL BID Qty: 14.2 RF: 0 Desitin Rapid Relief 13 % cream 1 applic topical TID PRN (Reason: skin irritation) Qty: 454 RF: 0 Discharge Orders: Discharge ED (Routine); Ordered 05/11/21 Ordered By: Patricia Arroyo Referrals: Shivani Schneider FNP [Primary Care Provider] - Discharge Diet: Advance as tolerated Discharge Activity: Resume usual activity Patient Instructions: Back Pain (ED) Coding Level of Care Code ED Changer Fixer for Robyn Ruiz
[2021-05-11] MEDS: HYDROcodone-acetaminophen 5-325 mg Tablet 1 TAB PO (00:39)
[2021-05-11 00:41] VITALS: PULSE 56; RESP 18; O2SAT 96
== END 2021-05-11 00:42 | disposition home or self-care (01) ==
PROVIDERS: Emergency Provider Emergency Medicine; PCP Registered Nurse
DX: M54.6 Pain in thoracic spine (principal); E11.9 Type 2 diabetes mellitus without complications; E78.5 Hyperlipidemia, unspecified; I10 Essential (primary) hypertension; Z87.891 Personal history of nicotine dependence
CPT/HCPCS: 99282

== ENCOUNTER 2021-05-31 17:01 | Emergency (ER) | payer MEDICARE, MEDICAID, SELFPAY ==
[2021-05-31 17:36] VITALS: BP 129/90; PULSE 66; RESP 19; TEMP 37; O2SAT 98; BMI 48.9
--- NOTE | 2021-05-31 17:59 | W.ED.EXTPRO ---
HPI - Extremity Problem General: Chief complaint: Extremity Problem,Nontraumatic Stated complaint: L. Shoulder & Neck Pain Time Seen by Provider: 05/31/21 17:57 History of Present Illness: HPI Narrative: 51-year-old female comes in today with complaints of left side neck and shoulder discomfort. Patient has had similar pain and has been seen at the end of April for the same complaint. Patient denies any new injury. 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 Patient appears well. Patient appears in mild to no pain. Review of Systems General: Reports: 10 or more systems reviewed and unremarkable except in HPI and below Musc: Reports: neck pain and joint pain PFS ED PFSH: Medical History (Updated 05/31/21 @ 18:23 by PIPPA Arango) Acute serous otitis media of left ear Anxiety Borderline intellectual functioning Controlled type 2 diabetes mellitus, without long-term current use of insulin Depression Dyslipidemia Enrolled in chronic care management Generalized anxiety disorder GERD (gastroesophageal reflux disease) Hypertension Hypothyroidism Obesity BHARAT (obstructive sleep apnea) Seizure disorder Tinnitus Surgical History History of colonoscopy with polypectomy (~09/2018) History of esophagogastroduodenoscopy (EGD) (~09/2018) History of hysterectomy with oophorectomy History of laparoscopic cholecystectomy Family History Grandmother Cancer Father Lung disease Diabetes Denies family history of Anesthesia complication Bleeding disorder Social History Smoking and tobacco status: never smoked Quit status (tobacco): has quit using tobacco Second hand smoke exposure: No Smoking risk assessment/counseling performed?: No Alcohol intake: never Desire information about alcohol rehabilitation?: No Counseling given: No Desire information about substance/drug rehabilitation?: No Counseling given: No Adopted: No Caregiver/support person: Yes Lives independently: Yes Housing: House Marital status: Single Highest education level completed: High School Graduate service: No Current occupational status: employed 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 Current occupational exposures/hazards: No Pets and animals: Yes History of recent travel: No Sexually active: Yes Ania/Methodist: None Special ania needs: No Agree to transfusion: Yes Financial difficulty paying for basics: Not Very Hard Female Reproductive History: Date of last menstrual period: 03/19/20 Physical Exam Const: COMMON NORMALS: no acute distress and patient oriented x3 GENERAL APPEARANCE: cooperative HENMT: COMMON NORMALS: normocephalic and Normal external nose present HEAD & SCALP: normal to inspection and normocephalic NOSE: Normal external nose present Eye: GENERAL EYE: appearance normal, both eyes and all related structures Neck/C-Spine: COMMON NORMALS: full ROM Chest: COMMONS NORMALS: normal inspection of the chest Resp: COMMON NORMALS: normal respiratory effort EFFORT & INSPECTION: Yes able to speak in complete sentences Cardio: COMMON NORMALS: regular rate and regular rhythm RATE: regular rate RHYTHM: regular rhythm GI: COMMON NORMALS: non-tender : COMMON NORMALS: Yes no CVA tenderness BLADDER/KIDNEY EXAM: Yes no CVA tenderness Back/Pelvis: COMMON NORMALS: no CVA tenderness and thoracic and lumbar spine normal to inspection Extremity: NARRATIVE EXTREMITY EXAM: Normal range of motion except some pain is elicited with abduction at 90 degrees. Neuro: COMMON NORMALS: patient oriented x3 and moves all extremities Psych: COMMON NORMALS: mental status grossly normal and cooperative Skin: COMMON NORMALS: no rashes or lesions noted GENERAL SKIN EXAM: no rashes or lesions noted Course Vital Signs: Vital signs: Vital Signs Temperature 98.6 F 05/31/21 17:36 Pulse Rate 66 05/31/21 17:36 Respiratory Rate 19 H 05/31/21 17:36 Blood Pressure 129/90 05/31/21 17:36 Pulse Oximetry 98 05/31/21 17:36 MDM - Extremity (Nontraumatic) MDM Narrative: Medical decision making narrative: Patient comes in today with complaints of left neck and shoulder pain. Review of the record notes that patient had been here for similar complaints at the end of April. On exam patient has some muscle tightness and tenderness to the left shoulder area. Patient does have some elicitation of pain with abduction at 80 to 90 degrees. Pulses are intact and sensation is intact distally. Differential diagnosis includes but not limited to rotator cuff injury, muscle strain, cervical radiculopathy. Reviewed exam with patient recommended treatment with Tylenol and tizanidine. Recommended patient follow-up with primary care for further evaluation and treatment. Reviewed x-ray from prior exam and showed no acute injury. Discharge Plan Discharge Patient Disposition: Home Clinical Impression: Muscle strain of left shoulder region Qualifiers: Encounter type: subsequent encounter Qualified Code(s): S46.912D - Strain of unspecified muscle, fascia and tendon at shoulder and upper arm level, left arm, subsequent encounter Condition: Stable Prescriptions: New tizanidine 4 mg tablet 4 mg PO Q8H PRN (Reason: muscle spasticity/pain) Qty: 14 RF: 0 No Action montelukast [Singulair] 10 mg tablet 10 mg PO DAILY Qty: 90 RF: 1 triamcinolone acetonide 0.1 % cream 1 applic topical TID Qty: 80 RF: 0 docusate sodium 100 mg capsule 100 mg PO PRN RF: 0 levothyroxine 100 mcg capsule 100 mcg PO DAILY RF: 0 lactulose 10 gram/15 mL solution 10 gm PO BID 7 Days Qty: 210 RF: 0 citalopram [Celexa] 20 mg tablet 20 mg PO DAILY Qty: 30 RF: 2 buspirone 15 mg tablet 15 mg PO TID Qty: 90 RF: 2 (DME) lancets [Accu-Chek Softclix Lancets] Misc See Rx Instructions .ROUTE .MEDSUPPLY Qty: 50 RF: 0 (DME) blood-glucose meter [Accu-Chek Leeann Plus Meter] Misc See Rx Instructions .ROUTE .MEDSUPPLY Qty: 1 RF: 0 (DME) GLUCOMETER Qty: 1 RF: 0 (DME) lancets [Accu-Chek Fastclix Lancet Drum] Misc See Rx Instructions .ROUTE .MEDSUPPLY Qty: 50 RF: 0 (DME) lancing device with lancets [Accu-Chek Soft Dev Lancets] Kit See Rx Instructions .ROUTE .MEDSUPPLY Qty: 100 RF: 2 (DME) pen needle, diabetic [BD Ultra-Fine Short Pen Needle] 31 gauge x 5/16 needle See Rx Instructions .ROUTE .MEDSUPPLY Qty: 100 RF: 2 simvastatin 20 mg tablet 20 mg PO DAILY Qty: 30 RF: 5 amlodipine [Norvasc] 5 mg tablet 5 mg PO DAILY Qty: 30 RF: 5 pantoprazole [Protonix] 40 mg tablet,delayed release (DR/EC) 40 mg PO BID Qty: 180 RF: 0 (DME) Accu-Chek Leeann Plus test strp Strip See Rx Instructions .ROUTE .MEDSUPPLY Qty: 100 RF: 1 losartan 50 mg tablet 50 mg PO DAILY Qty: 14 RF: 0 liothyronine 5 mcg tablet 5 mcg PO DAILY RF: 0 paroxetine HCl 20 mg tablet 20 mg PO DAILY RF: 0 acetaminophen [Tylenol Extra Strength] 500 mg Tablet 1,000 mg PO PRN RF: 0 Victoza 3-Solitario 0.6 mg/0.1 mL (18 mg/3 mL) pen injector 1.8 mg SUBCUT DAILY@20 RF: 0 Jardiance 10 mg Tablet 10 mg PO DAILY RF: 0 methocarbamol [Robaxin-750] 750 mg tablet 750 mg PO Q6H Qty: 30 RF: 0 naproxen [Naprosyn] 500 mg tablet 500 mg PO BID PRN (Reason: pain) Qty: 20 RF: 0 hydrocortisone [Anti-Itch (HC)] 1 % ointment 1 applic topical BID PRN (Reason: allergic reaction) Qty: 28.35 RF: 0 ondansetron HCl [Zofran] 4 mg tablet 4 mg PO Q4H PRN (Reason: Nausea And Vomiting) Qty: 10 RF: 0 cyclobenzaprine 10 mg tablet 10 mg PO BEDTIME PRN (Reason: muscle spasm) RF: 0 indapamide 2.5 mg tablet 2.5 mg PO DAILY RF: 0 ondansetron 4 mg tablet,disintegrating 4 mg PO Q6H PRN (Reason: nausea and vomiting) Qty: 14 RF: 0 hydrocortisone 2 % lotion 1 applic topical BID PRN (Reason: itching) Qty: 29.6 RF: 0 mupirocin 2 % ointment 1 applic TOPICAL BID Qty: 22 RF: 0 hydrocortisone 1 % cream 1 applic TOPICAL BID Qty: 14.2 RF: 0 Desitin Rapid Relief 13 % cream 1 applic topical TID PRN (Reason: skin irritation) Qty: 454 RF: 0 Robaxin-750 750 mg tablet 750 mg PO Q6H Qty: 30 RF: 0 Naprosyn 500 mg tablet 500 mg PO BID PRN (Reason: pain) Qty: 20 RF: 0 Discharge Orders: Discharge ED (Routine); Ordered 05/31/21 Ordered By: Ash Burton Referrals: Schneider,Shivani, CLERGY MEMBER [Primary Care Provider] - Discharge Diet: Usual diet Discharge Activity: Increase activity as tolerated Patient Instructions: Shoulder Sprain (ED), Opioid Safety Activity Restrictions/Additional Instructions: Activity as tolerated. Use ice or heat to the area for further comfort. Continue with acetaminophen for pain. Add tizanidine 1 tablet 3 times a day for aggravating muscle pain or spasms. Follow-up with primary care for further instruction and treatment. You may need to have physical therapy to assist with this problem. Your x-ray that you had done at the end of April showed arthritis type changes but otherwise no acute injury. Is important to follow-up with primary care for the management of chronic problems. Coding Level of Care Code ED Solar Thermal Technician for Robyn Ruiz
== END 2021-05-31 18:59 | disposition home or self-care (01) ==
PROVIDERS: Emergency Provider Nurse Practitioner Family; PCP Registered Nurse
DX: S46.912A Strain of unspecified muscle, fascia and tendon at shoulder and upper arm level, left arm, initial encounter (principal); E11.9 Type 2 diabetes mellitus without complications; E78.5 Hyperlipidemia, unspecified; I10 Essential (primary) hypertension; E03.9 Hypothyroidism, unspecified; E66.9 Obesity, unspecified; Z68.42 Body mass index [BMI] 45.0-49.9, adult; Z79.84 Long term (current) use of oral hypoglycemic drugs; X58.XXXA Exposure to other specified factors, initial encounter
CPT/HCPCS: 99281

== ENCOUNTER 2021-06-13 19:00 | Outpatient (CLI) | payer MEDICARE, MEDICAID, SELFPAY ==
--- NOTE | 2021-06-13 19:40 | XRR_ITS ---
PROCEDURE INFORMATION: Exam: XR Abdomen Exam date and time: 06/13/2021 7:40 PM Age: 51 years old Clinical indication: Other: Hematuria; Abdominal pain; Localized; Lower; Prior surgery; Surgery type: Gastric bypass, hysterectomy, gb TECHNIQUE: Imaging protocol: XR of the abdomen. Views: Frontal supine view of the abdomen. 1 View. COMPARISON: CT abdomen pelvis w con* [id number] 05/30/2020 10:00 PM FINDINGS: Tubes, catheters and devices: Surgical sutures are seen projecting over the left hemiabdomen. Gastrointestinal tract: Normal. No bowel dilation. Intraperitoneal space: No pneumoperitoneum. Organs: Cholecystectomy clips project over the right upper quadrant. Bones/joints: Unremarkable. XR/XR KUB [id number] IMPRESSION: Nonobstructive bowel gas pattern.
== END 2021-06-13 19:01 | disposition home or self-care (01) ==
PROVIDERS: PCP Registered Nurse; Visit Provider Nurse Practitioner
DX: R31.9 Hematuria, unspecified (principal); R39.9 Unspecified symptoms and signs involving the genitourinary system
CPT/HCPCS: 74018; 81000

== ENCOUNTER 2021-06-14 21:51 | Emergency (ER) | payer MEDICARE, MEDICAID, SELFPAY ==
[2021-06-14 23:11] VITALS: BP 145/88; PULSE 65; RESP 18; TEMP 36.3; O2SAT 97; BMI 49.0
--- NOTE | 2021-06-15 01:39 | CTR_ITS ---
PROCEDURE INFORMATION: Exam: CT Abdomen And Pelvis Without Contrast Exam date and time: 06/15/2021 1:39 AM Age: 51 years old Clinical indication: Abdominal pain; Generalized; Prior surgery; Surgery type: Gb. Hysterectomy; Patient HX: Abd pain. Hematuria. TECHNIQUE: Imaging protocol: Computed tomography of the abdomen and pelvis without contrast. Radiation optimization: All CT scans at this facility use at least one of these dose optimization techniques: automated exposure control; mA and/or kV adjustment per patient size (includes targeted exams where dose is matched to clinical indication); or iterative reconstruction. COMPARISON: CT abdomen pelvis w con* [id number] 05/30/2020 10:00 PM RADIATION DOSE METRICS: Total DLP (mGy-cm): 1939.54 FINDINGS: Liver: 5.2 mm calcifications seen within the liver compatible with a calcified granuloma. Gallbladder and bile ducts: Status post cholecystectomy. Pancreas: Normal. No ductal dilation. Spleen: Normal. No splenomegaly. Adrenal glands: Normal. No mass. Kidneys and ureters: Normal. No hydronephrosis. Stomach and bowel: Status post gastric bypass procedure. Appendix: The appendix is not seen in today's examination. There are no inflammatory changes seen to suggest appendicitis. Intraperitoneal space: Unremarkable. No free air. No significant fluid collection. Vasculature: Unremarkable. No abdominal aortic aneurysm. Lymph nodes: Unremarkable. No enlarged lymph nodes. Urinary bladder: Unremarkable as visualized. Reproductive: Status post hysterectomy. Bones/joints: Unremarkable. No acute fracture. Soft tissues: Unremarkable. CT/CT kidney stone [id number] IMPRESSION: There are no acute abdominal findings. Radiation Dose CTDIVOL = (mGy): DLP = 1939.54 (mGy-cm)
[2021-06-15 01:52] LABS: Basophils % 0.5 %; Eosinophils # 0.1 10^3/uL (0.0-0.8); Eosinophils % 1.3 %; Hematocrit 48.5 % (37.0-47.0); Hemoglobin 15.3 g/dL (11.5-15.3); Lymphocytes # 2.2 10^3/uL (0.8-4.8); Lymphocytes % 28.4 %; Mean Corpuscular HGB Conc 31.5 g/dL (30.0-36.0); Mean Corpuscular Volume 91.9 fL (81-99); Mean Platelet Volume 9.6 fL (7.4-10.4); Monocytes # 0.5 10^3/uL (0.2-0.9); Monocytes % 6.9 %; Neutrophils # 4.78 10^3/uL (1.8-7.7); Neutrophils % 62.6 %; Nucleated Red Blood Cells % 0 %; Platelet Count 235 10^3/cmm (130-400); Red Blood Count 5.28 10^6/uL (4.1-5.3); White Blood Count 7.6 10^3/uL (4.0-10.0)
--- NOTE | 2021-06-15 01:56 | W.ED.FEMALGU ---
HPI - Female Genitourinary General: Chief complaint: Urogenital-Female Stated complaint: abdomen pain, vaginal bleeding, cramping Time Seen by Provider: 06/15/21 01:26 Source: patient Mode of arrival: ambulatory Limitations: no limitations History of Present Illness: HPI Narrative: 51-year-old female is very well-known to the ER states that over the last day she has noticed some blood in her underwear. She had a hysterectomy and thinks that is out of her urine. She was seen by urgent care yesterday and had a hematuria noted and had x-ray abdomen that was negative. She states that she was just concerned and fair. She needed further imaging besides the x-ray. She denies any vomiting or diarrhea. Denies any pain currently. Associated symptoms: Deny abdominal pain, headache(s) or nausea Review of Systems Const: Denies: fever(s), chills, body aches or change in appetite Eyes: Denies: blurry vision or eye discomfort ENMT: Denies: throat pain or dental pain Card: Denies: chest pain Resp: Denies: dyspnea GI: Denies: abdominal pain, nausea, vomiting or diarrhea : Reports: hematuria; Denies: dysuria Musc: Denies: neck pain or back pain Skin/Breast: Denies: rash Neuro: Denies: headache(s) Psych: Denies: depression Red/Lymph: Denies: easy bruising All/Imm: Denies: urticaria PFSH ED PFSH: Medical History (Updated 06/15/21 @ 04:01 by Patricia Arroyo MD) Acute serous otitis media of left ear Anxiety Borderline intellectual functioning Controlled type 2 diabetes mellitus, without long-term current use of insulin Depression Dyslipidemia Enrolled in chronic care management Generalized anxiety disorder GERD (gastroesophageal reflux disease) Hypertension Hypothyroidism Obesity BHARAT (obstructive sleep apnea) Seizure disorder Tinnitus Surgical History History of colonoscopy with polypectomy (~09/2018) History of esophagogastroduodenoscopy (EGD) (~09/2018) History of hysterectomy with oophorectomy History of laparoscopic cholecystectomy Family History Grandmother Cancer Father Lung disease Diabetes Denies family history of Anesthesia complication Bleeding disorder Social History Smoking and tobacco status: never smoked Quit status (tobacco): has quit using tobacco Second hand smoke exposure: No Smoking risk assessment/counseling performed?: No Alcohol intake: never Desire information about alcohol rehabilitation?: No Counseling given: No Desire information about substance/drug rehabilitation?: No Counseling given: No Adopted: No Caregiver/support person: Yes Lives independently: Yes Housing: House Marital status: Single Highest education level completed: High School Graduate service: No Current occupational status: employed 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 Current occupational exposures/hazards: No Pets and animals: Yes History of recent travel: No Sexually active: Yes Ania/Mandaen: None Special ania needs: No Agree to transfusion: Yes Financial difficulty paying for basics: Not Very Hard Physical Exam Const: COMMON NORMALS: no acute distress, patient oriented x3 and healthy appearing HENMT: COMMON NORMALS: normocephalic and atraumatic HEAD & SCALP: normocephalic and atraumatic Eye: COMMON NORMALS: Equal, round and reactive pupils present and EOMs intact bilaterally PUPIL: Yes Equal, round and reactive pupils present Neck/C-Spine: COMMON NORMALS: full ROM and supple Chest: COMMONS NORMALS: normal inspection of the chest and normal palpation of entire chest wall Resp: COMMON NORMALS: normal respiratory effort, No retractions, No use of accessory muscles and clear to auscultation bilaterally AUSCULTATION: clear to auscultation bilaterally Cardio: COMMON NORMALS: regular rate, regular rhythm and No murmurs present (Cardio) RATE: regular rate RHYTHM: regular rhythm GI: COMMON NORMALS: Normal to inspection, nondistended, normoactive bowel sounds present, Soft to palpation, non-tender and no masses PALPATION: Yes Soft to palpation Extremity: COMMON NORMALS: normal to inspection and full ROM Neuro: COMMON NORMALS: patient oriented x3, moves all extremities and no focal motor deficits Psych: COMMON NORMALS: mental status grossly normal, Normal thought process present and cooperative THOUGHT PROCESS: Normal thought process present Skin: COMMON NORMALS: no rashes or lesions noted and no wounds GENERAL SKIN EXAM: no rashes or lesions noted Course Vital Signs: Vital signs: Vital Signs Temperature 97.3 F L 06/14/21 23:11 Pulse Rate 64 06/15/21 03:52 Respiratory Rate 18 06/14/21 23:11 Blood Pressure 119/48 06/15/21 03:52 Pulse Oximetry 98 06/15/21 03:52 MDM - Female MDM Narrative: Medical decision making narrative: Patient presents here with hematuria patient's other blood work is all normal. Patient CT scan shows no acute findings either. This could be infectious we will start her on Keflex. She is to follow-up with her PCP and return if worsening. Lab Data: Labs: Lab Results 06/15/21 06/15/21 06/15/21 Range/Units 01:48 01:48 01:58 WBC 7.6 (4.0-10.0) 10^3/ uL RBC 5.28 (4.1-5.3) 10^6/u L Hgb 15.3 (11.5-15.3) g/dL Hct 48.5 H (37.0-47.0) % MCV 91.9 (81-99) fL MCH 29.0 (28.0-34.0) pg MCHC 31.5 (30.0-36.0) g/dL RDW 14.0 (12.1-15.1) % Plt Count 235 (130-400) 10^3/c mm MPV 9.6 (7.4-10.4) fL Neut % (Auto) 62.6 % Lymph % (Auto) 28.4 % [place] % (Auto) 6.9 % Eos % (Auto) 1.3 % Baso % (Auto) 0.5 % Neut # (Auto) 4.78 (1.8-7.7) 10^3/u L Lymph # (Auto) 2.2 (0.8-4.8) 10^3/u L [place] # (Auto) 0.5 (0.2-0.9) 10^3/u L Eos # (Auto) 0.1 (0.0-0.8) 10^3/u L Baso # (Auto) 0.0 (0.0-0.1) 10^3/u L Nucleated RBC % (a uto) 0 % Nucleated RBCs # 0.0 /100WBC Sodium 137 (136-145) mmol/L Potassium 4.0 (3.5-5.1) mmol/L Chloride 104 (98-107) mmol/L Carbon Dioxide 22 (22-29) mmol/L Anion Gap 15.0 (5-19) BUN 10 (6-20) mg/dL Creatinine 0.7 (0.5-0.9) mg/dL GFR Calculation 88.9 L (90-130) mL/min Glucose 89 (65-115) mg/dL Calculated Osmolal ity 283 L (285-295) mOsm/k g Calcium 9.2 (8.5-10.5) mg/dL Total Bilirubin 0.3 (0.15-1.2) mg/dL AST 20 (0-32) U/L ALT 16 (0-33) U/L Alkaline Phosphata se 88 (35-105) IU/L Total Protein 7.6 (6.6-8.7) g/dL Albumin 3.9 (3.5-5.2) g/dL Globulin 3.7 (1.3-4.6) g/dL Urine Color Yellow (Yellow) Urine Appearance Clear (CLEAR) Urine pH 5 (5-7) Ur Specific Gravit y 1.015 (1.005-1.030) Urine Protein Neg (Negative) Urine Glucose (UA) 4+ H (Normal) Urine Ketones Negative (Negative) Urine Blood Trace H (Negative) Urine Nitrate Negative (Negative) Urine Bilirubin Neg (Negative) Urine Urobilinogen 1 H (Negative) mg/dL Ur Leukocyte Cleo ase Trace H (Negative) Urine RBC 0-4 H (0-2) /hpf Urine WBC 15-25 H (0-5) /hpf Ur Squamous Epith Cells 15-25 H (0-5) /hpf Amorphous Sediment Not Reportable Urine Bacteria 1+ H (NONE) /hpf Imaging Data: CT Abd/Pel: Attestation: I personally reviewed and interpreted this imaging study as follows: Radiologist's impression: [facility] [address] [facility] [place] [address] CT Scan Report Signed Patient: Nayla Trujillo Unit #: [id number] : 1970 Age/Sex: 51 / F ADM Date: 06/14/21 Loc: ER Room/Bed: Attending Dr: Ordering Provider/Ordering MD: Patricia Arroyo MD Date of Service: 06/15/21 Procedure(s): CT kidney stone [id number] Accession Number(s): [id number] Report Number: [id number] PROCEDURE INFORMATION: Exam: CT Abdomen And Pelvis Without Contrast Exam date and time: 06/15/2021 1:39 AM Age: 51 years old Clinical indication: Abdominal pain; Generalized; Prior surgery; Surgery type: Gb. Hysterectomy; Patient HX: Abd pain. Hematuria. TECHNIQUE: Imaging protocol: Computed tomography of the abdomen and pelvis without contrast. Radiation optimization: All CT scans at this facility use at least one of these dose optimization techniques: automated exposure control; mA and/or kV adjustment per patient size (includes targeted exams where dose is matched to clinical indication); or iterative reconstruction. COMPARISON: CT abdomen pelvis w con* [id number] 05/30/2020 10:00 PM RADIATION DOSE METRICS: Total DLP (mGy-cm): 1939.54 FINDINGS: Liver: 5.2 mm calcifications seen within the liver compatible with a calcified granuloma. Gallbladder and bile ducts: Status post cholecystectomy. Pancreas: Normal. No ductal dilation. Spleen: Normal. No splenomegaly. Adrenal glands: Normal. No mass. Kidneys and ureters: Normal. No hydronephrosis. Stomach and bowel: Status post gastric bypass procedure. Appendix: The appendix is not seen in today's examination. There are no inflammatory changes seen to suggest appendicitis. Intraperitoneal space: Unremarkable. No free air. No significant fluid collection. Vasculature: Unremarkable. No abdominal aortic aneurysm. Lymph nodes: Unremarkable. No enlarged lymph nodes. Urinary bladder: Unremarkable as visualized. Reproductive: Status post hysterectomy. Bones/joints: Unremarkable. No acute fracture. Soft tissues: Unremarkable. CT/CT kidney stone [id number] IMPRESSION: There are no acute abdominal findings. Radiation Dose CTDIVOL = (mGy): DLP = 1939.54 (mGy-cm) Dictated By: Ervin Maldonado MD Signed By: Ervin Maldonado MD Signed Date/Time: 06/15/21355 DD/ 4 Discharge Plan Discharge Patient Disposition: Home Clinical Impression: Hematuria Qualifiers: Hematuria type: unspecified type Qualified Code(s): R31.9 - Hematuria, unspecified Condition: Stable Prescriptions: New cephalexin 500 mg capsule 500 mg PO TID 7 Days Qty: 21 RF: 0 No Action montelukast [Singulair] 10 mg tablet 10 mg PO DAILY Qty: 90 RF: 1 triamcinolone acetonide 0.1 % cream 1 applic topical TID Qty: 80 RF: 0 docusate sodium 100 mg capsule 100 mg PO PRN RF: 0 levothyroxine 100 mcg capsule 100 mcg PO DAILY RF: 0 lactulose 10 gram/15 mL solution 10 gm PO BID 7 Days Qty: 210 RF: 0 citalopram [Celexa] 20 mg tablet 20 mg PO DAILY Qty: 30 RF: 2 buspirone 15 mg tablet 15 mg PO TID Qty: 90 RF: 2 (DME) lancets [Accu-Chek Softclix Lancets] Misc See Rx Instructions .ROUTE .MEDSUPPLY Qty: 50 RF: 0 (DME) blood-glucose meter [Accu-Chek Leeann Plus Meter] Misc See Rx Instructions .ROUTE .MEDSUPPLY Qty: 1 RF: 0 (DME) GLUCOMETER Qty: 1 RF: 0 (DME) lancets [Accu-Chek Fastclix Lancet Drum] Misc See Rx Instructions .ROUTE .MEDSUPPLY Qty: 50 RF: 0 (DME) lancing device with lancets [Accu-Chek Soft Dev Lancets] Kit See Rx Instructions .ROUTE .MEDSUPPLY Qty: 100 RF: 2 (DME) pen needle, diabetic [BD Ultra-Fine Short Pen Needle] 31 gauge x 5/16 needle See Rx Instructions .ROUTE .MEDSUPPLY Qty: 100 RF: 2 simvastatin 20 mg tablet 20 mg PO DAILY Qty: 30 RF: 5 amlodipine [Norvasc] 5 mg tablet 5 mg PO DAILY Qty: 30 RF: 5 pantoprazole [Protonix] 40 mg tablet,delayed release (DR/EC) 40 mg PO BID Qty: 180 RF: 0 (DME) Accu-Chek Leeann Plus test strp Strip See Rx Instructions .ROUTE .MEDSUPPLY Qty: 100 RF: 1 losartan 50 mg tablet 50 mg PO DAILY Qty: 14 RF: 0 liothyronine 5 mcg tablet 5 mcg PO DAILY RF: 0 paroxetine HCl 20 mg tablet 20 mg PO DAILY RF: 0 acetaminophen [Tylenol Extra Strength] 500 mg Tablet 1,000 mg PO PRN RF: 0 Victoza 3-Solitario 0.6 mg/0.1 mL (18 mg/3 mL) pen injector 1.8 mg SUBCUT DAILY@20 RF: 0 Jardiance 10 mg Tablet 10 mg PO DAILY RF: 0 methocarbamol [Robaxin-750] 750 mg tablet 750 mg PO Q6H Qty: 30 RF: 0 naproxen [Naprosyn] 500 mg tablet 500 mg PO BID PRN (Reason: pain) Qty: 20 RF: 0 hydrocortisone [Anti-Itch (HC)] 1 % ointment 1 applic topical BID PRN (Reason: allergic reaction) Qty: 28.35 RF: 0 ondansetron HCl [Zofran] 4 mg tablet 4 mg PO Q4H PRN (Reason: Nausea And Vomiting) Qty: 10 RF: 0 cyclobenzaprine 10 mg tablet 10 mg PO BEDTIME PRN (Reason: muscle spasm) RF: 0 indapamide 2.5 mg tablet 2.5 mg PO DAILY RF: 0 ondansetron 4 mg tablet,disintegrating 4 mg PO Q6H PRN (Reason: nausea and vomiting) Qty: 14 RF: 0 hydrocortisone 2 % lotion 1 applic topical BID PRN (Reason: itching) Qty: 29.6 RF: 0 tizanidine 4 mg tablet 4 mg PO Q8H PRN (Reason: muscle spasticity/pain) Qty: 14 RF: 0 mupirocin 2 % ointment 1 applic TOPICAL BID Qty: 22 RF: 0 hydrocortisone 1 % cream 1 applic TOPICAL BID Qty: 14.2 RF: 0 Desitin Rapid Relief 13 % cream 1 applic topical TID PRN (Reason: skin irritation) Qty: 454 RF: 0 Robaxin-750 750 mg tablet 750 mg PO Q6H Qty: 30 RF: 0 Naprosyn 500 mg tablet 500 mg PO BID PRN (Reason: pain) Qty: 20 RF: 0 Discharge Orders: Discharge ED (Routine); Ordered 06/15/21 Ordered By: Patricia Arroyo Referrals: Shivani Schneider FNP [Primary Care Provider] - 1-3 days Discharge Diet: Advance as tolerated Discharge Activity: Resume usual activity Patient Instructions: Acute Hematuria (ED) Coding Level of Care Code ED 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
[2021-06-15 02:13] LABS: Alanine Aminotransferase 16 U/L (0-33); Albumin Level 3.9 g/dL (3.5-5.2); Alkaline Phosphatase 88 IU/L (35-105); Aspartate Amino Transferase 20 U/L (0-32); Blood Urea Nitrogen 10 mg/dL (6-20); Calcium 9.2 mg/dL (8.5-10.5); Carbon Dioxide 22 mmol/L (22-29); Chloride 104 mmol/L (98-107); Globulin 3.7 g/dL (1.3-4.6); Glomerular Filtration Rate 88.9 mL/min (90-130); Glucose 89 mg/dL (65-115); Osmolality Calculated 283 mOsm/kg (285-295); Sodium 137 mmol/L (136-145); Total Bilirubin 0.3 mg/dL (0.15-1.2); Total Protein 7.6 g/dL (6.6-8.7)
[2021-06-15 02:35] LABS: Add Urine Culture? No; Add Urine Microscopic? YES; Bacteria Urine 1+ /hpf; Bilirubin Urine Neg (Negative); Blood Urine Trace (Negative); Glucose Urine UA 4+ (Normal); Ketones Urine Negative (Negative); Leukocyte Esterase Urine Trace (Negative); Nitrate Urine Negative (Negative); Protein Urine Neg (Negative); RBC Urine 0-4 /hpf (0-2); Specific Gravity, Urine 1.015 (1.005-1.030); Squamous Epithelial Cell Urine 15-25 /hpf (0-5); Urine Appearance Clear (CLEAR); Urine Color Yellow (Yellow); Urobilinogen Urine 1 mg/dL (Negative); WBC Urine 15-25 /hpf (0-5); pH Urine 5 (5-7)
[2021-06-15 02:55] VITALS: BP 125/71; PULSE 63; O2SAT 97
[2021-06-15 03:27] VITALS: BP 124/57; PULSE 59; O2SAT 98
[2021-06-15 03:52] VITALS: BP 119/48; PULSE 64; O2SAT 98
[2021-06-15 04:09] VITALS: BP 109/59; PULSE 68; O2SAT 98
[2021-06-15 04:10] VITALS: BP 109/59; PULSE 61; O2SAT 97
== END 2021-06-15 04:12 | disposition home or self-care (01) ==
PROVIDERS: Emergency Provider Emergency Medicine; PCP Registered Nurse
DX: R31.9 Hematuria, unspecified (principal); E11.9 Type 2 diabetes mellitus without complications; E78.5 Hyperlipidemia, unspecified; I10 Essential (primary) hypertension; Z87.891 Personal history of nicotine dependence
CPT/HCPCS: 36415; 74176; 80053; 81001; 85025; 99283

== ENCOUNTER 2021-06-25 19:12 | Emergency (ER) | payer MEDICARE, MEDICAID, SELFPAY ==
[2021-06-25 19:17] VITALS: BP 143/92; PULSE 70; RESP 17; TEMP 36.7; O2SAT 98; BMI 49.2
[2021-06-25 19:47] VITALS: BP 142/95; PULSE 68; RESP 16; TEMP 36.4; O2SAT 98
--- NOTE | 2021-06-25 19:51 | ED_ITS ---
HPI - Abdominal Pain General: Chief Complaint: Abdominal Pain Stated Complaint: Vomiting\BM Different Time Seen by Provider: 06/25/21 19:33 History of Present Illness: HPI narrative: Patient is a 51-year-old female that comes to the ED with abdominal cramping pain and loose/fatty stool. Patient has a history of hypothyroidism, GERD, hypertension, type 2 diabetes, dyslipidemia, obesity and patient had a gastric sleeve procedure done several months ago. Patient reports having some abdominal cramping pain that is been going on for several months now. She also reports passing some loose fatty stool recently. She says her nausea has gotten a lot better and denies any vomiting. Patient also says she has been coughing up some white sputum as well. Denies any chest pain or shortness of breath. Associated Symptoms: Denies chills, constipation, diarrhea, dysuria, fever(s), hematochezia, hematuria, nausea and vomiting Review of Systems Const: Denies: fever(s), chills or fatigue Eyes: Denies: change in vision or eye discomfort ENMT: Denies: throat pain, odynophagia, nasal discharge or nasal congestion Card: Denies: chest pain, palpitations, edema, swelling of feet/ankles, dyspnea on exertion or orthopnea Resp: Denies: dyspnea, productive cough or non-productive cough GI: Reports: abdominal pain (Generalized abdominal cramping) and steatorrhea (Loose stool); Denies: nausea, vomiting, diarrhea, constipation or hematochezia : Denies: flank pain, dysuria or hematuria Musc: Denies: neck pain, back pain or extremity swelling Skin/Breast: Denies: rash or new lesions Neuro: Denies: headache(s), numbness in extremities or weakness in extremities PFS ED PFSH: Medical History Acute serous otitis media of left ear Anxiety Borderline intellectual functioning Controlled type 2 diabetes mellitus, without long-term current use of insulin Depression Dyslipidemia Enrolled in chronic care management Generalized anxiety disorder GERD (gastroesophageal reflux disease) Hypertension Hypothyroidism Obesity BHARAT (obstructive sleep apnea) Seizure disorder Tinnitus Surgical History History of colonoscopy with polypectomy (~09/2018) History of esophagogastroduodenoscopy (EGD) (~09/2018) History of hysterectomy with oophorectomy History of laparoscopic cholecystectomy Family History Grandmother Cancer Father Lung disease Diabetes Denies family history of Anesthesia complication Bleeding disorder Social History Smoking and tobacco status: never smoked Quit status (tobacco): has quit using tobacco Second hand smoke exposure: No Smoking risk assessment/counseling performed?: No Alcohol intake: never Desire information about alcohol rehabilitation?: No Counseling given: No Desire information about substance/drug rehabilitation?: No Counseling given: No Adopted: No Caregiver/support person: Yes Lives independently: Yes Housing: House Marital status: Single Highest education level completed: High School Graduate service: No Current occupational status: employed 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 Current occupational exposures/hazards: No Pets and animals: Yes History of recent travel: No Sexually active: Yes Ania/Buddhism: None Special ania needs: No Agree to transfusion: Yes Financial difficulty paying for basics: Not Very Hard Physical Exam Const: COMMON NORMALS: no acute distress, patient oriented x3 and alert GENERAL APPEARANCE: cooperative and comfortable NUTRITIONAL APPEARANCE: obese HENMT: COMMON NORMALS: normocephalic HEAD & SCALP: normocephalic MOUTH: Normal oral and palatal mucosa present THROAT: posterior oropharynx normal and uvula midline Eye: COMMON NORMALS: Equal, round and reactive pupils present PUPIL: Yes Equal, round and reactive pupils present Neck/C-Spine: COMMON NORMALS: supple GENERAL: Yes normal visual inspection Resp: COMMON NORMALS: normal respiratory effort, No retractions, No use of accessory muscles and clear to auscultation bilaterally AUSCULTATION: clear to auscultation bilaterally Cardio: COMMON NORMALS: regular rate, regular rhythm, S1 normal heart sound present, S2 normal heart sound present, No gallops present (Cardio), No clicks present (Cardio), No murmurs present (Cardio) and Peripheral pulses 2+ throughout RATE: regular rate RHYTHM: regular rhythm HEART SOUNDS: S1 normal heart sound present and S2 normal heart sound present PERIPHERAL PULSES: Peripheral pulses 2+ throughout GI: COMMON NORMALS: Normal to inspection, nondistended, normoactive bowel sounds present, Soft to palpation and no masses INSPECTION: Yes central obesity PALPATION: Yes Soft to palpation and Yes Tenderness to palpation present (GI) Details: LLQ (Mild tenderness) : COMMON NORMALS: Yes no CVA tenderness BLADDER/KIDNEY EXAM: Yes no CVA tenderness Back/Pelvis: COMMON NORMALS: no CVA tenderness Extremity: COMMON NORMALS: normal to inspection Neuro: COMMON NORMALS: patient oriented x3 SENSORIUM/ORIENTATION: Yes alert Skin: GENERAL SKIN EXAM: dry skin Course Vital Signs: Vital signs: Vital Signs Temperature 98 F 06/25/21 22:21 Pulse Rate 64 06/25/21 23:09 Respiratory Rate 20 H 06/25/21 23:09 Blood Pressure 135/63 06/25/21 23:09 Pulse Oximetry 98 06/25/21 23:09 MDM - Abdominal Pain MDM Narrative: Medical decision making narrative: Patient is a 51-year-old female comes to the ED with abdominal cramping pain and loose fatty stool. Abdominal cramping pain has been going on for several months. Patient also reported coughing up some white sputum today. Denies any fever, chills, chest pain, shortness of breath, nausea/vomiting. Patient appears in no acute distress or pain. She is obese and has some left abdominal tenderness to palpation but no other acute exam findings. All labs are unremarkable. Patient's vitals are stable. CT of abdomen pelvis showed no acute findings. Chest x-ray showed no acute findings. Patient diagnosed with abdominal cramping and discharged home with some dicyclomine. She is told to follow-up with her PCP in 7 to 10 days reevaluation. Return to ED precautions given. Patient understood agree with plan. Lab Data: Attestation: I reviewed the patient's lab results. Labs: Lab Results 06/25/21 06/25/21 06/25/21 Range/Units 20:31 20:57 20:57 WBC 6.6 (4.0-10.0) 10^3/ uL RBC 5.11 (4.1-5.3) 10^6/u L Hgb 14.6 (11.5-15.3) g/dL Hct 46.2 (37.0-47.0) % MCV 90.4 (81-99) fl MCH 28.6 (28.0-34.0) pg MCHC 31.6 (30.0-36.0) g/dL RDW 13.6 (12.1-15.1) % Plt Count 232 (130-400) 10^3/c mm MPV 9.8 (7.4-10.4) fL Neut % (Auto) 67.1 % Lymph % (Auto) 21.6 % Iron % (Auto) 8.5 % Eos % (Auto) 2.0 % Baso % (Auto) 0.5 % Neut # (Auto) 4.44 (1.8-7.7) 10^3/u L Lymph # (Auto) 1.4 (0.8-4.8) 10^3/u L Iron # (Auto) 0.6 (0.2-0.9) 10^3/u L Eos # (Auto) 0.1 (0.0-0.8) 10^3/u L Baso # (Auto) 0.0 (0.0-0.1) 10^3/u L Nucleated RBC % (a uto) 0 % Nucleated RBCs # 0.0 /100WBC Sodium 138 (136-145) mmol/L Potassium 3.5 (3.5-5.1) mmol/L Chloride 104 (98-107) mmol/L Carbon Dioxide 23 (22-29) mmol/L Anion Gap 14.5 (5-19) BUN 12 (6-20) mg/dL Creatinine 0.7 (0.5-0.9) mg/dL GFR Calculation 88.9 L (90-130) mL/min Glucose 105 (65-115) mg/dL Calculated Osmolal ity 286 (285-295) mOsm/k g Calcium 9.3 (8.5-10.5) mg/dL Total Bilirubin 0.3 (0.15-1.2) mg/dL AST 17 (0-32) U/L ALT 16 (0-33) U/L Alkaline Phosphata se 72 (35-105) IU/L Total Protein 7.7 (6.6-8.7) g/dL Albumin 3.8 (3.5-5.2) g/dL Globulin 3.9 (1.3-4.6) g/dL Lipase 45 (13-60) U/L Urine Color Yellow (Yellow) Urine Appearance Clear (CLEAR) Urine pH 5 (5-7) Ur Specific Gravit y 1.005 (1.005-1.030) Urine Protein Neg (Negative) Urine Glucose (UA) 4+ H (Normal) Urine Ketones Negative (Negative) Urine Blood 2+ H (Negative) Urine Nitrate Negative (Negative) Urine Bilirubin Neg (Negative) Urine Urobilinogen Norm (Negative) mg/dL Ur Leukocyte Cleo ase Negative (Negative) Urine RBC 0-4 H (0-2) /hpf Urine WBC 0-4 H (0-5) /hpf Ur Squamous Epith Cells 5-10 H (0-5) /hpf Amorphous Sediment Not Reportable Urine Bacteria 1+ H (NONE) /hpf Urine Mucus Trace /hpf Imaging Data ^: CT Abd/Pel: Attestation: I personally reviewed and interpreted this imaging study as follows: Radiologist's impression: [facility] [address] [address] [address] Scan Report Signed Patient: Nayla Trujillo Unit #: [id number] : 1970 Age/Sex: 51 / F ADM Date: 06/25/21 Loc: ER Room/Bed: Attending Dr: Ordering Provider/Ordering MD: Khris Craig Date of Service: 06/25/21 Procedure(s): CT abdomen pelvis w con* [id number] Accession Number(s): [id number] Report Number: [id number] PROCEDURE INFORMATION: Exam: CT Abdomen And Pelvis With Contrast Exam date and time: 06/25/2021 8:22 PM Age: 51 years old Clinical indication: Nausea and vomiting; Abdominal pain; Generalized; Prior surgery; Surgery type: Hysterectomy. Gb. ; Patient HX: Chronic abd pain. N/v. ; Additional info: Abdominal pain, nausea TECHNIQUE: Imaging protocol: Computed tomography of the abdomen and pelvis with contrast. Radiation optimization: All CT scans at this facility use at least one of these dose optimization techniques: automated exposure control; mA and/or kV adjustment per patient size (includes targeted exams where dose is matched to clinical indication); or iterative reconstruction. Contrast material: OMNI 300; Contrast volume: 95 ml; Contrast route: INTRAVENOUS (IV); COMPARISON: CT kidney stone [id number] 06/15/2021 2:25 AM RADIATION DOSE METRICS: Total DLP (mGy-cm): 2018.49 FINDINGS: Lungs: The small noncalcified nodules right middle lobe not significantly changed from previous studies. No further follow-up is necessary Liver: The liver demonstrates coarse calcifications, consistent with remote granulomatous organism exposure. There is mild hypodensity in the left lobe of the liver adjacent the falciform ligament which could represent some focal fatty change. Gallbladder and bile ducts: There has been a cholecystectomy. Pancreas: The pancreas is normal. Spleen: The spleen is normal. Adrenal glands: The adrenal glands are normal. Kidneys and ureters: The kidneys are normal. There is no evidence of hydronephrosis. There is no evidence of renal or ureteral calcifications. Stomach and bowel: There has been a gastric stapling and bypass. There is no evidence of colitis/diverticulitis. There is no evidence of intestinal obstruction. There is no evidence of intestinal obstruction. Appendix: Not identified Intraperitoneal space: There is no evidence of free intraperitoneal fluid. Vasculature: There is no evidence of an abdominal aortic aneurysm. Lymph nodes: There is no evidence of lymphadenopathy. Urinary bladder: Unremarkable as visualized. Reproductive: There has been a hysterectomy. Bones/joints: Unremarkable. No acute fracture. Soft tissues: Unremarkable. CT/CT abdomen pelvis w con* [id number] IMPRESSION: No acute finding. Radiation Dose CTDIVOL = (mGy): DLP = 2018.49 (mGy-cm) Dictated By: Darnell Falk Signed By: Darnell Falk Signed Date/Time: 06/25/212151 DD/ 50 CXR: Attestation: I personally reviewed and interpreted this imaging study as follows: Radiologist's impression: [address] [address] XRay Report Signed Patient: Nayla Trujillo Radha Unit #: [id number] : 1970 Age/Sex: 51 / F ADM Date: 06/25/21 Loc: ER Room/Bed: Attending Dr: Ordering Provider/Ordering MD: Khris Craig Date of Service: 06/25/21 Procedure(s): XR chest 1V portable [id number] Accession Number(s): [id number] Report Number: [id number] PROCEDURE INFORMATION: Exam: XR Chest Exam date and time: 06/25/2021 9:58 PM Age: 51 years old Clinical indication: Cough; Prior surgery; Surgery type: Gastric bypass TECHNIQUE: Imaging protocol: XR of the chest. Views: 1 view. COMPARISON: CR XR chest 1V portable [id number] 10/08/2020 11:08 PM FINDINGS: Limitations: The study is made with less than full inspiration. Lungs: Visualized portions of the lungs are clear. Pleural spaces: Unremarkable. No pleural effusion. No pneumothorax. Heart/Mediastinum: Heart is upper limits normal in size. Bones/joints: Unremarkable. XR/XR chest 1V portable [id number] IMPRESSION: No acute infiltrate. Dictated By: Darnell Falk Signed By: Darnell Falk Signed Date/Time: 06/25/212233 DD/ 33 Discharge Plan Discharge Patient Disposition: Home Clinical Impression: Abdominal cramping Condition: Stable Prescriptions: New dicyclomine 20 mg tablet 20 mg PO QID Qty: 20 RF: 0 No Action montelukast [Singulair] 10 mg tablet 10 mg PO DAILY Qty: 90 RF: 1 triamcinolone acetonide 0.1 % cream 1 applic topical TID Qty: 80 RF: 0 docusate sodium 100 mg capsule 100 mg PO PRN RF: 0 levothyroxine 100 mcg capsule 100 mcg PO DAILY RF: 0 citalopram [Celexa] 20 mg tablet 20 mg PO DAILY Qty: 30 RF: 2 buspirone 15 mg tablet 15 mg PO TID Qty: 90 RF: 2 (DME) lancets [Accu-Chek Softclix Lancets] Misc See Rx Instructions .ROUTE .MEDSUPPLY Qty: 50 RF: 0 (DME) blood-glucose meter [Accu-Chek Leeann Plus Meter] Misc See Rx Instructions .ROUTE .MEDSUPPLY Qty: 1 RF: 0 (DME) GLUCOMETER Qty: 1 RF: 0 (DME) lancets [Accu-Chek Fastclix Lancet Drum] Misc See Rx Instructions .ROUTE .MEDSUPPLY Qty: 50 RF: 0 (DME) lancing device with lancets [Accu-Chek Soft Dev Lancets] Kit See Rx Instructions .ROUTE .MEDSUPPLY Qty: 100 RF: 2 (DME) pen needle, diabetic [BD Ultra-Fine Short Pen Needle] 31 gauge x 5/16 needle See Rx Instructions .ROUTE .MEDSUPPLY Qty: 100 RF: 2 simvastatin 20 mg tablet 20 mg PO DAILY Qty: 30 RF: 5 pantoprazole [Protonix] 40 mg tablet,delayed release (DR/EC) 40 mg PO BID Qty: 180 RF: 0 (DME) Accu-Chek Leeann Plus test strp Strip See Rx Instructions .ROUTE .MEDSUPPLY Qty: 100 RF: 1 liothyronine 5 mcg tablet 5 mcg PO DAILY RF: 0 paroxetine HCl 20 mg tablet 20 mg PO DAILY RF: 0 acetaminophen [Tylenol Extra Strength] 500 mg Tablet 1,000 mg PO PRN RF: 0 Jardiance 10 mg Tablet 10 mg PO DAILY RF: 0 mupirocin 2 % ointment 1 applic TOPICAL BID Qty: 22 RF: 0 Desitin Rapid Relief 13 % cream 1 applic topical TID PRN (Reason: skin irritation) Qty: 454 RF: 0 Discharge Orders: Discharge ED (Routine); Ordered 06/25/21 Ordered By: Khris Craig Referrals: Shivani Schneider FNP [Primary Care Provider] - Discharge Diet: Usual diet Discharge Activity: Resume usual activity Patient Instructions: Abdominal Pain (ED) Activity Restrictions/Additional Instructions: Follow-up with medical provider as directed in 5 to 7 days reevaluation. Take medications as prescribed. Return to the ER or your medical provider if condition worsens. Please read and understand discharge instructions. Thank you for choosing [facility] for your healthcare needs today. Please realize this is an emergency room and that we are providing you with a medical screening exam and this may not be complete and all inclusive of all the testing and or work up that you may need to determine your ailment or severity of your illness. It is very important that you follow up as instructed or that you return to the Emergency Department should you have concerns or if your condition changes or worsens in any way. 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
--- NOTE | 2021-06-25 19:53 | PC.NURSE ---
Patient reports she had gastric bypass February 2021.
--- NOTE | 2021-06-25 20:22 | CTR_ITS ---
PROCEDURE INFORMATION: Exam: CT Abdomen And Pelvis With Contrast Exam date and time: 06/25/2021 8:22 PM Age: 51 years old Clinical indication: Nausea and vomiting; Abdominal pain; Generalized; Prior surgery; Surgery type: Hysterectomy. Gb. ; Patient HX: Chronic abd pain. N/v. ; Additional info: Abdominal pain, nausea TECHNIQUE: Imaging protocol: Computed tomography of the abdomen and pelvis with contrast. Radiation optimization: All CT scans at this facility use at least one of these dose optimization techniques: automated exposure control; mA and/or kV adjustment per patient size (includes targeted exams where dose is matched to clinical indication); or iterative reconstruction. Contrast material: OMNI 300; Contrast volume: 95 ml; Contrast route: INTRAVENOUS (IV); COMPARISON: CT kidney stone [id number] 06/15/2021 2:25 AM RADIATION DOSE METRICS: Total DLP (mGy-cm): 2017.49 FINDINGS: Lungs: The small noncalcified nodules right middle lobe not significantly changed from previous studies. No further follow-up is necessary Liver: The liver demonstrates coarse calcifications, consistent with remote granulomatous organism exposure. There is mild hypodensity in the left lobe of the liver adjacent the falciform ligament which could represent some focal fatty change. Gallbladder and bile ducts: There has been a cholecystectomy. Pancreas: The pancreas is normal. Spleen: The spleen is normal. Adrenal glands: The adrenal glands are normal. Kidneys and ureters: The kidneys are normal. There is no evidence of hydronephrosis. There is no evidence of renal or ureteral calcifications. Stomach and bowel: There has been a gastric stapling and bypass. There is no evidence of colitis/diverticulitis. There is no evidence of intestinal obstruction. There is no evidence of intestinal obstruction. Appendix: Not identified Intraperitoneal space: There is no evidence of free intraperitoneal fluid. Vasculature: There is no evidence of an abdominal aortic aneurysm. Lymph nodes: There is no evidence of lymphadenopathy. Urinary bladder: Unremarkable as visualized. Reproductive: There has been a hysterectomy. Bones/joints: Unremarkable. No acute fracture. Soft tissues: Unremarkable. CT/CT abdomen pelvis w con* [id number] IMPRESSION: No acute finding. Radiation Dose CTDIVOL = (mGy): DLP = 2017.49 (mGy-cm)
[2021-06-25 20:46] LABS: Protein Urine Neg (Negative); Specific Gravity, Urine 1.005 (1.005-1.030); Urine Appearance Clear (CLEAR); Urine Color Yellow (Yellow); pH Urine 5 (5-7)
[2021-06-25 20:47] LABS: Add Urine Culture? No; Bacteria Urine 1+ /hpf; Bilirubin Urine Neg (Negative); Blood Urine 2+ (Negative); Glucose Urine UA 4+ (Normal); Ketones Urine Negative (Negative); Leukocyte Esterase Urine Negative (Negative); Mucus Urine TRACE /hpf; Nitrate Urine Negative (Negative); RBC Urine 0-4 /hpf (0-2); Urobilinogen Urine Norm (Negative); WBC Urine 0-4 /hpf (0-5)
[2021-06-25] MEDS: iohexol 300 mg/mL 100 mL Btl IV (20:47)
[2021-06-25 21:06] LABS: Basophils % 0.5 %; Eosinophils # 0.1 10^3/uL (0.0-0.8); Hematocrit 46.2 % (37.0-47.0); Hemoglobin 14.6 g/dL (11.5-15.3); Lymphocytes # 1.4 10^3/uL (0.8-4.8); Lymphocytes % 21.6 %; Mean Corpuscular HGB Conc 31.6 g/dL (30.0-36.0); Mean Corpuscular Hemoglobin 28.6 pg (28.0-34.0); Mean Corpuscular Volume 90.4 fl (81-99); Mean Platelet Volume 9.8 fL (7.4-10.4); Monocytes # 0.6 10^3/uL (0.2-0.9); Monocytes % 8.5 %; Neutrophils # 4.44 10^3/uL (1.8-7.7); Neutrophils % 67.1 %; Nucleated Red Blood Cells % 0 %; Platelet Count 232 10^3/cmm (130-400); Red Blood Count 5.11 10^6/uL (4.1-5.3); Red Cell Distribution Width 13.6 % (12.1-15.1); White Blood Count 6.6 10^3/uL (4.0-10.0)
[2021-06-25 21:26] LABS: Alanine Aminotransferase 16 U/L (0-33); Albumin Level 3.8 g/dL (3.5-5.2); Alkaline Phosphatase 72 IU/L (35-105); Anion Gap 14.5 (5-19); Aspartate Amino Transferase 17 U/L (0-32); Blood Urea Nitrogen 12 mg/dL (6-20); Calcium 9.3 mg/dL (8.5-10.5); Carbon Dioxide 23 mmol/L (22-29); Chloride 104 mmol/L (98-107); Globulin 3.9 g/dL (1.3-4.6); Glomerular Filtration Rate 88.9 mL/min (90-130); Glucose 105 mg/dL (65-115); Lipase 45 U/L (13-60); Osmolality Calculated 286 mOsm/kg (285-295); Potassium 3.5 mmol/L (3.5-5.1); Sodium 138 mmol/L (136-145); Total Bilirubin 0.3 mg/dL (0.15-1.2); Total Protein 7.7 g/dL (6.6-8.7)
--- NOTE | 2021-06-25 21:58 | XRR_ITS ---
PROCEDURE INFORMATION: Exam: XR Chest Exam date and time: 06/25/2021 9:58 PM Age: 51 years old Clinical indication: Cough; Prior surgery; Surgery type: Gastric bypass TECHNIQUE: Imaging protocol: XR of the chest. Views: 1 view. COMPARISON: CR XR chest 1V portable [id number] 10/08/2020 11:08 PM FINDINGS: Limitations: The study is made with less than full inspiration. Lungs: Visualized portions of the lungs are clear. Pleural spaces: Unremarkable. No pleural effusion. No pneumothorax. Heart/Mediastinum: Heart is upper limits normal in size. Bones/joints: Unremarkable. XR/XR chest 1V portable [id number] IMPRESSION: No acute infiltrate.
[2021-06-25 22:21] VITALS: BP 130/64; PULSE 63; RESP 16; TEMP 36.6; O2SAT 96
[2021-06-25 23:09] VITALS: BP 135/63; PULSE 64; RESP 20; O2SAT 98
== END 2021-06-25 23:11 | disposition home or self-care (01) ==
PROVIDERS: Emergency Provider Physician Assistant; PCP Registered Nurse
DX: R10.9 Unspecified abdominal pain (principal); E11.9 Type 2 diabetes mellitus without complications; E78.5 Hyperlipidemia, unspecified; I10 Essential (primary) hypertension; Z87.891 Personal history of nicotine dependence
CPT/HCPCS: 71045; 74177; 80053; 81001; 83690; 85025; 99283; Q9967

== ENCOUNTER 2021-07-22 19:46 | Emergency (ER) | payer MEDICARE, MEDICAID, SELFPAY ==
[2021-07-22 19:54] VITALS: BP 117/77; PULSE 68; RESP 18; TEMP 36.6; O2SAT 97; BMI 46.1
[2021-07-23 00:47] VITALS: BP 137/79; PULSE 56; O2SAT 98
--- NOTE | 2021-07-23 00:55 | CTR_ITS ---
PROCEDURE INFORMATION: Exam: CT Neck With Contrast Exam date and time: 07/23/2021 12:55 AM Age: 51 years old Clinical indication: Mass, lump, or swelling in neck; Bilateral; Painful swallowing; Additional info: Swelling in throat/neck, hard to swallow TECHNIQUE: Imaging protocol: Computed tomography images of the neck with contrast. Radiation optimization: All CT scans at this facility use at least one of these dose optimization techniques: automated exposure control; mA and/or kV adjustment per patient size (includes targeted exams where dose is matched to clinical indication); or iterative reconstruction. Contrast material: OMNI 300; Contrast volume: 95 ml; Contrast route: INTRAVENOUS (IV); COMPARISON: US Soft Tissue Head Neck [id number] 12/06/2018 2:05 PM RADIATION DOSE METRICS: Total DLP (mGy-cm): 810.89 FINDINGS: Nasopharynx: Unremarkable. Oropharynx: Unremarkable. No significant tonsillar enlargement. Hypopharynx: Unremarkable. Larynx: Unremarkable. Normal epiglottis. Retropharyngeal space: Unremarkable. Submandibular/Parotid glands: Normal. Glands are normal in size. Thyroid: Normal. No enlarged or calcified nodules. Lymph nodes: Unremarkable. No lymphadenopathy. Trachea: Visualized trachea is unremarkable. Lungs: Unremarkable as visualized. Bones/joints: Unremarkable. No acute fracture. Soft tissues: Unremarkable. No significant soft tissue swelling. CT/CT neck w con* [id number] IMPRESSION: No acute findings. Radiation Dose CTDIVOL = (mGy): DLP = 810.89 (mGy-cm)
--- NOTE | 2021-07-23 01:16 | W.ED.NECK ---
HPI - Neck Pain/Injury General: Chief Complaint: Neck Pain/Injury Stated Complaint: wants tyroid checked? coughing up water Time Seen by Provider: 07/23/21 00:39 History of Present Illness: HPI Narrative: Patient is a 51-year-old female comes to the ED with neck swelling and trouble swallowing. Patient says that several years ago she was told she has a thyroid nodule. She noticed over the past 2 days she feels like her throat/neck area is more swollen and she has trouble swallowing. Denies any airway obstruction or trouble breathing. She is able to swallow food and fluids but says every now and then she will drink something she feels like some of the fluid comes back up. Denies any chest pain, shortness of breath, abdominal pain, nausea/vomiting, bladder or bowel symptoms. Associated symptoms: Denies headache(s) or nausea Review of Systems Const: Denies: fever(s), chills or fatigue Eyes: Denies: change in vision or eye discomfort ENMT: Reports: other (Trouble swallowing.); Denies: throat pain, odynophagia, nasal discharge or nasal congestion Card: Denies: chest pain, palpitations, edema, swelling of feet/ankles, dyspnea on exertion or orthopnea Resp: Denies: dyspnea, productive cough or non-productive cough GI: Denies: abdominal pain, nausea, vomiting, diarrhea, constipation or hematochezia : Denies: flank pain, dysuria or hematuria Musc: Reports: other (Neck swelling); Denies: neck pain, back pain or extremity swelling Skin/Breast: Denies: rash or new lesions Neuro: Denies: headache(s), numbness in extremities or weakness in extremities PFS ED PFSH: Medical History Acute serous otitis media of left ear Anxiety Borderline intellectual functioning Controlled type 2 diabetes mellitus, without long-term current use of insulin Depression Dyslipidemia Enrolled in chronic care management Generalized anxiety disorder GERD (gastroesophageal reflux disease) Hypertension Hypothyroidism Obesity BHARAT (obstructive sleep apnea) Seizure disorder Tinnitus Surgical History History of colonoscopy with polypectomy (~09/2018) History of esophagogastroduodenoscopy (EGD) (~09/2018) History of hysterectomy with oophorectomy History of laparoscopic cholecystectomy Family History Grandmother Cancer Father Lung disease Diabetes Denies family history of Anesthesia complication Bleeding disorder Social History Quit status (tobacco): has quit using tobacco Second hand smoke exposure: No Smoking risk assessment/counseling performed?: No Alcohol intake: never Desire information about alcohol rehabilitation?: No Counseling given: No Desire information about substance/drug rehabilitation?: No Counseling given: No Adopted: No Caregiver/support person: Yes Lives independently: Yes Housing: House Marital status: Single Highest education level completed: High School Graduate service: No Current occupational status: employed 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 Current occupational exposures/hazards: No Pets and animals: Yes History of recent travel: No Sexually active: Yes Ania/Caodaism: None Special ania needs: No Agree to transfusion: Yes Financial difficulty paying for basics: Not Very Hard Physical Exam Const: COMMON NORMALS: no acute distress, patient oriented x3 and alert GENERAL APPEARANCE: cooperative and comfortable HENMT: COMMON NORMALS: normocephalic HEAD & SCALP: normocephalic MOUTH: Normal oral and palatal mucosa present THROAT: posterior oropharynx normal and uvula midline Eye: COMMON NORMALS: Equal, round and reactive pupils present PUPIL: Yes Equal, round and reactive pupils present Neck/C-Spine: COMMON NORMALS: supple and Thyroid normal GENERAL: Yes normal visual inspection THYROID: Thyroid normal and nontender OTHER: No palpable mass in the neck. Resp: COMMON NORMALS: normal respiratory effort, No retractions, No use of accessory muscles and clear to auscultation bilaterally AUSCULTATION: clear to auscultation bilaterally Cardio: COMMON NORMALS: regular rate, regular rhythm, S1 normal heart sound present, S2 normal heart sound present, No gallops present (Cardio), No clicks present (Cardio), No murmurs present (Cardio) and Peripheral pulses 2+ throughout RATE: regular rate RHYTHM: regular rhythm HEART SOUNDS: S1 normal heart sound present and S2 normal heart sound present PERIPHERAL PULSES: Peripheral pulses 2+ throughout GI: COMMON NORMALS: Normal to inspection, nondistended, normoactive bowel sounds present, Soft to palpation, non-tender and no masses PALPATION: Yes Soft to palpation : COMMON NORMALS: Yes no CVA tenderness BLADDER/KIDNEY EXAM: Yes no CVA tenderness Back/Pelvis: COMMON NORMALS: no CVA tenderness Extremity: COMMON NORMALS: normal to inspection Neuro: COMMON NORMALS: patient oriented x3 and moves all extremities SENSORIUM/ORIENTATION: Yes alert Skin: COMMON NORMALS: no rashes or lesions noted GENERAL SKIN EXAM: no rashes or lesions noted and dry skin Course Vital Signs: Vital signs: Vital Signs Temperature 97.8 F 07/22/21 19:54 Pulse Rate 53 L 07/23/21 03:37 Respiratory Rate 18 07/23/21 03:37 Blood Pressure 111/71 07/23/21 03:37 Pulse Oximetry 98 07/23/21 03:37 MDM - Neck Pain/Injury MDM Narrative: Medical decision making narrative: Patient is a 51-year-old female comes to the ED with neck swelling and trouble swallowing. She is able to swallow food and fluids but says occasionally some of the fluids come back out. Denies any trouble breathing or any other symptoms. Patient appears nontoxic and in no acute distress and is sitting comfortably on exam chair when I enter the room. Exam is benign. CBC and CMP were unremarkable. TSH is 5.11 which is elevated but her free T4 was normal at 1.09. CT of her neck showed no acute findings or any airway obstructions. Patient was diagnosed with an elevated TSH and told to contact her poolroom/poolhall manager and set up an appointment with her to discuss ED visit and to recheck labs. Return to ED precautions given. Patient understood and agree with plan. Lab Data: Attestation: I reviewed the patient's lab results. Labs: Lab Results 07/23/21 07/23/21 Range/Units 02:00 02:00 WBC 8.4 (4.0-10.0) 10^3/ uL RBC 5.04 (4.1-5.3) 10^6/u L Hgb 14.6 (11.5-15.3) g/dL Hct 45.0 (37.0-47.0) % MCV 89.3 (81-99) fl MCH 29.0 (28.0-34.0) pg MCHC 32.4 (30.0-36.0) g/dL RDW 13.5 (12.1-15.1) % Plt Count 235 (130-400) 10^3/c mm MPV 9.5 (7.4-10.4) fL Neut % (Auto) 63.6 % Lymph % (Auto) 27.1 % [place] % (Auto) 7.2 % Eos % (Auto) 1.4 % Baso % (Auto) 0.6 % Neut # (Auto) 5.34 (1.8-7.7) 10^3/u L Lymph # (Auto) 2.3 (0.8-4.8) 10^3/u L [place] # (Auto) 0.6 (0.2-0.9) 10^3/u L Eos # (Auto) 0.1 (0.0-0.8) 10^3/u L Baso # (Auto) 0.1 (0.0-0.1) 10^3/u L Nucleated RBC % (a uto) 0 % Nucleated RBCs # 0.0 /100WBC Sodium 139 (136-145) mmol/L Potassium 3.8 (3.5-5.1) mmol/L Chloride 104 (98-107) mmol/L Carbon Dioxide 25 (22-29) mmol/L Anion Gap 13.8 (5-19) BUN 14 (6-20) mg/dL Creatinine 0.7 (0.5-0.9) mg/dL GFR Calculation 88.9 L (90-130) mL/min Glucose 83 (65-115) mg/dL Calculated Osmolal ity 288 (285-295) mOsm/k g Calcium 8.7 (8.5-10.5) mg/dL Total Bilirubin 0.4 (0.15-1.2) mg/dL AST 18 (0-32) U/L ALT 19 (0-33) U/L Alkaline Phosphata se 73 (35-105) IU/L Total Protein 7.4 (6.6-8.7) g/dL Albumin 3.8 (3.5-5.2) g/dL Globulin 3.6 (1.3-4.6) g/dL TSH 5.11 H (0.27-4.20) uIU/ mL Free T4 1.09 (0.82-1.77) ng/d L Imaging Data^: Other CT: Attestation: I personally reviewed and interpreted this imaging study as follows: Radiologist's impression: [address] [place] [address] CT Scan Report Signed Patient: Nayla Trujillo Unit #: [id number] : 1970 Age/Sex: 51 / F ADM Date: 07/22/21 Loc: ER Room/Bed: Attending Dr: Ordering Provider/Ordering MD: Khris Craig Date of Service: 07/23/21 Procedure(s): CT neck w con* [id number] Accession Number(s): [id number] Report Number: [id number] PROCEDURE INFORMATION: Exam: CT Neck With Contrast Exam date and time: 07/23/2021 12:55 AM Age: 51 years old Clinical indication: Mass, lump, or swelling in neck; Bilateral; Painful swallowing; Additional info: Swelling in throat/neck, hard to swallow TECHNIQUE: Imaging protocol: Computed tomography images of the neck with contrast. Radiation optimization: All CT scans at this facility use at least one of these dose optimization techniques: automated exposure control; mA and/or kV adjustment per patient size (includes targeted exams where dose is matched to clinical indication); or iterative reconstruction. Contrast material: OMNI 300; Contrast volume: 95 ml; Contrast route: INTRAVENOUS (IV); COMPARISON: US Soft Tissue Head Neck [id number] 12/06/2018 2:05 PM RADIATION DOSE METRICS: Total DLP (mGy-cm): 810.89 FINDINGS: Nasopharynx: Unremarkable. Oropharynx: Unremarkable. No significant tonsillar enlargement. Hypopharynx: Unremarkable. Larynx: Unremarkable. Normal epiglottis. Retropharyngeal space: Unremarkable. Submandibular/Parotid glands: Normal. Glands are normal in size. Thyroid: Normal. No enlarged or calcified nodules. Lymph nodes: Unremarkable. No lymphadenopathy. Trachea: Visualized trachea is unremarkable. Lungs: Unremarkable as visualized. Bones/joints: Unremarkable. No acute fracture. Soft tissues: Unremarkable. No significant soft tissue swelling. CT/CT neck w con* [id number] IMPRESSION: No acute findings. Radiation Dose CTDIVOL = (mGy): DLP = 810.89 (mGy-cm) Dictated By: Ramirez Kasper Signed By: Ramirez Kasper Signed Date/Time: 07/23/21 0317 DD/ 5 Discharge Plan Discharge Patient Disposition: Home Clinical Impression: Elevated TSH Condition: Stable Prescriptions: No Action montelukast [Singulair] 10 mg tablet 10 mg PO DAILY Qty: 90 RF: 1 triamcinolone acetonide 0.1 % cream 1 applic topical TID Qty: 80 RF: 0 cetirizine 10 mg tablet 10 mg PO DAILY Qty: 20 RF: 0 docusate sodium 100 mg capsule 100 mg PO PRN RF: 0 levothyroxine 100 mcg capsule 100 mcg PO DAILY RF: 0 citalopram [Celexa] 20 mg tablet 20 mg PO DAILY Qty: 30 RF: 2 buspirone 15 mg tablet 15 mg PO TID Qty: 90 RF: 2 (DME) lancets [Accu-Chek Softclix Lancets] Misc See Rx Instructions .ROUTE .MEDSUPPLY Qty: 50 RF: 0 (DME) blood-glucose meter [Accu-Chek Leeann Plus Meter] Misc See Rx Instructions .ROUTE .MEDSUPPLY Qty: 1 RF: 0 (DME) GLUCOMETER Qty: 1 RF: 0 (DME) lancets [Accu-Chek Fastclix Lancet Drum] Misc See Rx Instructions .ROUTE .MEDSUPPLY Qty: 50 RF: 0 (DME) lancing device with lancets [Accu-Chek Soft Dev Lancets] Kit See Rx Instructions .ROUTE .MEDSUPPLY Qty: 100 RF: 2 (DME) pen needle, diabetic [BD Ultra-Fine Short Pen Needle] 31 gauge x 5/16 needle See Rx Instructions .ROUTE .MEDSUPPLY Qty: 100 RF: 2 simvastatin 20 mg tablet 20 mg PO DAILY Qty: 30 RF: 5 pantoprazole [Protonix] 40 mg tablet,delayed release (DR/EC) 40 mg PO BID Qty: 180 RF: 0 (DME) Accu-Chek Leeann Plus test strp Strip See Rx Instructions .ROUTE .MEDSUPPLY Qty: 100 RF: 1 liothyronine 5 mcg tablet 5 mcg PO DAILY RF: 0 paroxetine HCl 20 mg tablet 20 mg PO DAILY RF: 0 acetaminophen [Tylenol Extra Strength] 500 mg Tablet 1,000 mg PO PRN RF: 0 Jardiance 10 mg Tablet 10 mg PO DAILY RF: 0 mupirocin 2 % ointment 1 applic TOPICAL BID Qty: 22 RF: 0 Desitin Rapid Relief 13 % cream 1 applic topical TID PRN (Reason: skin irritation) Qty: 454 RF: 0 dicyclomine 20 mg tablet 20 mg PO QID Qty: 20 RF: 0 Discharge Orders: Discharge ED (Routine); Ordered 07/23/21 Ordered By: Khris Craig Referrals: Steffany Escoto [Primary Care Provider] - Discharge Diet: Regular Discharge Activity: Resume usual activity Patient Instructions: Thyroid Function Tests (GEN) Activity Restrictions/Additional Instructions: Follow-up with medical provider as directed. Contact your poolroom/poolhall manager to discuss your recent ED visit and your elevated TSH lab. Continue taking home medications as prescribed. Return to the ER or your medical provider if condition worsens. Please read and understand discharge instructions. Thank you for choosing [facility] for your healthcare needs today. Please realize this is an emergency room and that we are providing you with a medical screening exam and this may not be complete and all inclusive of all the testing and or work up that you may need to determine your ailment or severity of your illness. It is very important that you follow up as instructed or that you return to the Emergency Department should you have concerns or if your condition changes or worsens in any way. 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
[2021-07-23] MEDS: iohexol 300 mg/mL 100 mL Btl IV (02:08)
[2021-07-23 02:11] LABS: Basophils # 0.1 10^3/uL (0.0-0.1); Basophils % 0.6 %; Eosinophils # 0.1 10^3/uL (0.0-0.8); Eosinophils % 1.4 %; Hemoglobin 14.6 g/dL (11.5-15.3); Lymphocytes # 2.3 10^3/uL (0.8-4.8); Lymphocytes % 27.1 %; Mean Corpuscular HGB Conc 32.4 g/dL (30.0-36.0); Mean Corpuscular Volume 89.3 fl (81-99); Mean Platelet Volume 9.5 fL (7.4-10.4); Monocytes # 0.6 10^3/uL (0.2-0.9); Monocytes % 7.2 %; Neutrophils # 5.34 10^3/uL (1.8-7.7); Neutrophils % 63.6 %; Nucleated Red Blood Cells % 0 %; Platelet Count 235 10^3/cmm (130-400); Red Blood Count 5.04 10^6/uL (4.1-5.3); Red Cell Distribution Width 13.5 % (12.1-15.1); White Blood Count 8.4 10^3/uL (4.0-10.0)
[2021-07-23 02:38] LABS: Alanine Aminotransferase 19 U/L (0-33); Albumin Level 3.8 g/dL (3.5-5.2); Alkaline Phosphatase 73 IU/L (35-105); Anion Gap 13.8 (5-19); Aspartate Amino Transferase 18 U/L (0-32); Blood Urea Nitrogen 14 mg/dL (6-20); Calcium 8.7 mg/dL (8.5-10.5); Carbon Dioxide 25 mmol/L (22-29); Chloride 104 mmol/L (98-107); Globulin 3.6 g/dL (1.3-4.6); Glomerular Filtration Rate 88.9 mL/min (90-130); Glucose 83 mg/dL (65-115); Osmolality Calculated 288 mOsm/kg (285-295); Potassium 3.8 mmol/L (3.5-5.1); Sodium 139 mmol/L (136-145); Thyroid Stimulating Hormone 5.11 uIU/mL (0.27-4.20); Total Bilirubin 0.4 mg/dL (0.15-1.2); Total Protein 7.4 g/dL (6.6-8.7)
[2021-07-23 03:04] LABS: Free T4 Free Thyroxine 1.09 ng/dL (0.82-1.77)
[2021-07-23 03:37] VITALS: BP 111/71; PULSE 53; RESP 18; O2SAT 98
== END 2021-07-23 03:45 | disposition home or self-care (01) ==
PROVIDERS: Emergency Provider Physician Assistant; PCP Registered Nurse
DX: R79.9 Abnormal finding of blood chemistry, unspecified (principal); E11.9 Type 2 diabetes mellitus without complications; E78.5 Hyperlipidemia, unspecified; I10 Essential (primary) hypertension; Z87.891 Personal history of nicotine dependence
CPT/HCPCS: 70491; 80053; 84439; 84443; 85025; 99282; Q9967

== ENCOUNTER → 2021-07-26 10:15 | Outpatient (BNVA) | payer MEDICARE, MEDICAID, SELFPAY | PROVIDERS: PCP Registered Nurse; Visit Provider Nurse Practitioner | DX: R41.83 Borderline intellectual functioning (principal); F41.1 Generalized anxiety disorder | CPT/HCPCS: 99214 ==

== ENCOUNTER 2021-08-04 21:54 | Emergency (ER) | payer MEDICARE, MEDICAID, SELFPAY ==
[2021-08-04 22:02] VITALS: BP 131/88; PULSE 66; RESP 16; TEMP 36.8; O2SAT 99; BMI 45.6
[2021-08-04 22:10] VITALS: BP 147/79; PULSE 72; RESP 16; TEMP 36.8; O2SAT 99
[2021-08-04 22:28] VITALS: BP 147/79; PULSE 72; RESP 16; TEMP 36.8; O2SAT 99
[2021-08-04] MEDS: predniSONE 10 mg Tablet PO (22:28)
[2021-08-04] MEDS: diphenhydrAMINE 50 mg Capsule PO (22:28)
--- NOTE | 2021-08-04 22:46 | ED_ITS ---
HPI - Allergic Reaction General: Chief complaint: Allergic Reaction Stated complaint: Rash Time Seen by Provider: 08/04/21 22:07 History of Present Illness: HPI narrative: Patient states she started with an itch on her wrists this evening. Also needs a note for work says that she needs same time every day. complaint: other (Itching) Onset (ago): minute(s) Exposure: unknown Associated symptoms: Reports no associated symptoms Treatment prior to arrival: none Review of Systems Const: Denies: fever(s) or chills Skin/Breast: Reports: pruritus; Denies: skin tenderness or skin swelling Psych: Denies: anxiety or depression PFS ED PFSH: Medical History (Updated 08/04/21 @ 22:22 by PIPPA Ruiz) Acute serous otitis media of left ear Anxiety Borderline intellectual functioning Controlled type 2 diabetes mellitus, without long-term current use of insulin Depression Dyslipidemia Enrolled in chronic care management Generalized anxiety disorder GERD (gastroesophageal reflux disease) Hypertension Hypothyroidism Obesity BHARAT (obstructive sleep apnea) Psychiatric care Seizure disorder Tinnitus Surgical History History of colonoscopy with polypectomy (~09/2018) History of esophagogastroduodenoscopy (EGD) (~09/2018) History of hysterectomy with oophorectomy History of laparoscopic cholecystectomy Family History Grandmother Cancer Father Lung disease Diabetes Denies family history of Anesthesia complication Bleeding disorder Social History Quit status (tobacco): has quit using tobacco Second hand smoke exposure: No Smoking risk assessment/counseling performed?: No Alcohol intake: never Desire information about alcohol rehabilitation?: No Counseling given: No Desire information about substance/drug rehabilitation?: No Counseling given: No Adopted: No Caregiver/support person: Yes Lives independently: Yes Housing: House Marital status: Single Highest education level completed: High School Graduate service: No Current occupational status: employed 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 But there are mechanical abrasion silva from her itching. Course Vital Signs: Vital signs: Vital Signs Temperature 98.3 F 08/04/21 22:28 Pulse Rate 72 08/04/21 22:28 Respiratory Rate 16 08/04/21 22:28 Blood Pressure 147/79 08/04/21 22:28 Pulse Oximetry 99 08/04/21 22:28 Discharge Plan Discharge Patient Disposition: Home Clinical Impression: Rash Condition: Stable Prescriptions: No Action montelukast [Singulair] 10 mg tablet 10 mg PO DAILY Qty: 90 RF: 1 triamcinolone acetonide 0.1 % cream 1 applic topical TID Qty: 80 RF: 0 citalopram [Celexa] 20 mg tablet 20 mg PO DAILY Qty: 30 RF: 2 buspirone 15 mg tablet 15 mg PO BID Qty: 60 RF: 2 cetirizine 10 mg tablet 10 mg PO DAILY Qty: 20 RF: 0 docusate sodium 100 mg capsule 100 mg PO PRN RF: 0 levothyroxine 100 mcg capsule 100 mcg PO DAILY RF: 0 (DME) lancets [Accu-Chek Softclix Lancets] Misc See Rx Instructions .ROUTE .MEDSUPPLY Qty: 50 RF: 0 (DME) blood-glucose meter [Accu-Chek Leeann Plus Meter] Misc See Rx Instructions .ROUTE .MEDSUPPLY Qty: 1 RF: 0 (DME) GLUCOMETER Qty: 1 RF: 0 (DME) lancets [Accu-Chek Fastclix Lancet Drum] Misc See Rx Instructions .ROUTE .MEDSUPPLY Qty: 50 RF: 0 (DME) lancing device with lancets [Accu-Chek Soft Dev Lancets] Kit See Rx Instructions .ROUTE .MEDSUPPLY Qty: 100 RF: 2 (DME) pen needle, diabetic [BD Ultra-Fine Short Pen Needle] 31 gauge x 5/16 needle See Rx Instructions .ROUTE .MEDSUPPLY Qty: 100 RF: 2 simvastatin 20 mg tablet 20 mg PO DAILY Qty: 30 RF: 5 pantoprazole [Protonix] 40 mg tablet,delayed release (DR/EC) 40 mg PO BID Qty: 180 RF: 0 (DME) Accu-Chek Leeann Plus test strp Strip See Rx Instructions .ROUTE .MEDSUPPLY Qty: 100 RF: 1 liothyronine 5 mcg tablet 5 mcg PO DAILY RF: 0 paroxetine HCl 20 mg tablet 20 mg PO DAILY RF: 0 acetaminophen [Tylenol Extra Strength] 500 mg Tablet 1,000 mg PO PRN RF: 0 Jardiance 10 mg Tablet 10 mg PO DAILY RF: 0 mupirocin 2 % ointment 1 applic TOPICAL BID Qty: 22 RF: 0 Desitin Rapid Relief 13 % cream 1 applic topical TID PRN (Reason: skin irritation) Qty: 454 RF: 0 dicyclomine 20 mg tablet 20 mg PO QID Qty: 20 RF: 0 Discharge Orders: Discharge ED (Routine); Ordered 08/04/21 Ordered By: Joey Hook Referrals: Steffany Escoto [Primary Care Provider] - Discharge Diet: Usual diet Discharge Activity: Resume usual activity Activity Restrictions/Additional Instructions: Follow-up your family medical provider as necessary. Can take [id number] Benadryl to help with your rash. 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
== END 2021-08-04 22:29 | disposition home or self-care (01) ==
PROVIDERS: Emergency Provider Nurse Practitioner Family; PCP Registered Nurse
DX: R21 Rash and other nonspecific skin eruption (principal); E11.9 Type 2 diabetes mellitus without complications; E78.5 Hyperlipidemia, unspecified; I10 Essential (primary) hypertension; Z87.891 Personal history of nicotine dependence
CPT/HCPCS: 99283; J7512; Q0163

== ENCOUNTER → 2021-08-14 11:40 | Outpatient (BNVA) | payer MEDICARE, MEDICAID, SELFPAY | PROVIDERS: PCP Registered Nurse; Visit Provider Orthopaedic Surgery | DX: M25.512 Pain in left shoulder (principal) | CPT/HCPCS: 73030 ==

== ENCOUNTER 2021-08-21 06:00 | Outpatient (RCR) | payer MEDICARE, MEDICAID, SELFPAY | END 2021-09-09 23:59 | disposition home or self-care (01) | LOC: SPT 06:00 | PROVIDERS: Referring Provider Orthopaedic Surgery; Visit Provider Orthopaedic Surgery | DX: M75.02 Adhesive capsulitis of left shoulder (principal) | CPT/HCPCS: 97110; 97161 ==

== ENCOUNTER 2021-08-26 01:43 | Emergency (ER) | payer MEDICARE, MEDICAID, SELFPAY ==
[2021-08-26 01:49] VITALS: BP 126/97; PULSE 70; RESP 16; TEMP 36.4; O2SAT 98; BMI 44.9
--- NOTE | 2021-08-26 01:50 | XRR_ITS ---
PROCEDURE INFORMATION: Exam: XR Chest Exam date and time: 08/26/2021 1:50 AM Age: 51 years old Clinical indication: Cough TECHNIQUE: Imaging protocol: XR of the chest. Views: 1 view. COMPARISON: CR XR chest 1V portable [id number] 06/25/2021 9:57 PM FINDINGS: Lungs: Unremarkable. No consolidation. Pleural spaces: Unremarkable. No pleural effusion. No pneumothorax. Heart/Mediastinum: There is stable cardiomegaly. Bones/joints: Unremarkable. XR/XR chest 1V portable [id number] IMPRESSION: Cardiomegaly. No other acute abnormality. Radiation Dose CTDIVOL = (mGy): DLP = (mGy-cm)
--- NOTE | 2021-08-26 01:51 | ECG_ITS ---
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 Measurements Intervals [place] Rate: 59 P: 46 TX: 179 QRS: 25 QRSD: 89 T: -2 QT: 427 QTc: 426 Interpretive Statements SINUS BRADYCARDIA LOW QRS VOLTAGE IN PRECORDIAL LEADS [QRS DEFLECTION < 1.0 mV IN CHEST LEADS] NON SPECIFIC T WAVE ABNORMALITY Compared to ECG 04/02/2018 23:19:47 Sinus rhythm no longer present Electronically Signed On 08-26-2021 21:05:54 CDT by Shamika Edmonds M.D. [id number]
--- NOTE | 2021-08-26 01:52 | ED_ITS ---
HPI - URI/Sore Throat General: Chief Complaint: General Medical Stated Complaint: Coughing up Blood Time Seen by Provider: 08/26/21 01:44 Source: patient Mode of arrival: ambulatory Limitations: no limitations History of Present Illness: HPI Narrative: 51-year-old female states that she has been having a cough throughout the day and has coughed up some small amount of blood. She states that its minimal and mainly in the sputum. She denies any fever. She denies any shortness of breath or chest pain. States she has had this previously is unsure what caused it. She denies any worsening improving factors she is not on any blood thinners. Associated symptoms: Deny abdominal pain, chills, chest pain, diarrhea, fever(s), headache(s), nausea or vomiting Review of Systems Const: Denies: fever(s), chills, body aches or change in appetite Eyes: Denies: blurry vision or eye discomfort ENMT: Denies: throat pain or dental pain Card: Denies: chest pain Resp: Reports: productive cough and hemoptysis GI: Denies: abdominal pain, nausea, vomiting or diarrhea : Denies: dysuria Musc: Denies: neck pain or back pain Skin/Breast: Denies: rash Neuro: Denies: headache(s) Psych: Denies: depression Red/Lymph: Denies: easy bruising All/Imm: Denies: urticaria PFSH ED PFSH: Medical History Acute serous otitis media of left ear Anxiety Borderline intellectual functioning Controlled type 2 diabetes mellitus, without long-term current use of insulin Depression Dyslipidemia Enrolled in chronic care management Generalized anxiety disorder GERD (gastroesophageal reflux disease) Hypertension Hypothyroidism Obesity BHARAT (obstructive sleep apnea) Psychiatric care Seizure disorder Tinnitus Surgical History History of colonoscopy with polypectomy (~09/2018) History of esophagogastroduodenoscopy (EGD) (~09/2018) History of hysterectomy with oophorectomy History of laparoscopic cholecystectomy Family History Grandmother Cancer Father Lung disease Diabetes Denies family history of Anesthesia complication Bleeding disorder Social History Quit status (tobacco): has quit using tobacco Second hand smoke exposure: No Smoking risk assessment/counseling performed?: No Alcohol intake: never Desire information about alcohol rehabilitation?: No Counseling given: No Desire information about substance/drug rehabilitation?: No Counseling given: No Adopted: No Caregiver/support person: Yes Lives independently: Yes Housing: House Marital status: Single Highest education level completed: High School Graduate service: No Current occupational status: employed 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 Current occupational exposures/hazards: No Pets and animals: Yes History of recent travel: No Sexually active: Yes Ania/Jehovah'S Witness: None Special ania needs: No Agree to transfusion: Yes Financial difficulty paying for basics: Not Very Hard Physical Exam Const: COMMON NORMALS: no acute distress, patient oriented x3 and healthy appearing HENMT: COMMON NORMALS: normocephalic and atraumatic HEAD & SCALP: normocephalic and atraumatic Eye: COMMON NORMALS: Equal, round and reactive pupils present and EOMs intact bilaterally PUPIL: Yes Equal, round and reactive pupils present Neck/C-Spine: COMMON NORMALS: full ROM and supple Chest: COMMONS NORMALS: normal inspection of the chest and normal palpation of entire chest wall Resp: COMMON NORMALS: normal respiratory effort, No retractions, No use of accessory muscles and clear to auscultation bilaterally AUSCULTATION: clear to auscultation bilaterally Cardio: COMMON NORMALS: regular rate, regular rhythm and No murmurs present (Cardio) RATE: regular rate RHYTHM: regular rhythm GI: COMMON NORMALS: Normal to inspection, nondistended, normoactive bowel sounds present, Soft to palpation, non-tender and no masses PALPATION: Yes Soft to palpation Extremity: COMMON NORMALS: normal to inspection and full ROM Neuro: COMMON NORMALS: patient oriented x3, moves all extremities and no focal motor deficits Psych: COMMON NORMALS: mental status grossly normal, Normal thought process present and cooperative THOUGHT PROCESS: Normal thought process present Skin: COMMON NORMALS: no rashes or lesions noted and no wounds GENERAL SKIN EXAM: no rashes or lesions noted Course Vital Signs: Vital signs: Vital Signs Temperature 97.6 F 08/26/21 01:49 Pulse Rate 70 08/26/21 01:49 Respiratory Rate 16 08/26/21 01:49 Blood Pressure 126/97 08/26/21 01:49 Pulse Oximetry 98 08/26/21 01:49 MDM - URI/Sore Throat MDM Narrative: Medical decision making narrative: Patient presents with slight hemoptysis. Patient is well-appearing here and is in no distress patient's D- dimer here is negative no signs of pulmonary embolism. Patient stable for discharge is to follow-up PCP and return if worsening. Lab Data: Labs: Lab Results 08/26/21 08/26/21 08/26/21 02:18 02:18 02:18 WBC 6.1 10^3/uL 10^3/ uL (4.0-10.0) RBC 4.94 10^6/uL 10^6 /uL (4.1-5.3) Hgb 15.1 g/dL g/dL (11.5-15.3) Hct 45.6 % % (37.0-47.0) MCV 92.3 fl fl (81-99) MCH 30.6 pg pg (28.0-34.0) MCHC 33.1 g/dL g/dL (30.0-36.0) RDW 14.0 % % (12.1-15.1) Plt Count 208 10^3/cmm 10^3 /cmm (130-400) MPV 9.4 fL fL (7.4-10.4) Neut % (Auto) 67.2 % % Lymph % (Auto) 22.3 % % [place] % (Auto) 7.8 % % Eos % (Auto) 1.8 % % Baso % (Auto) 0.7 % % Neut # (Auto) 4.12 10^3/uL 10^3 /uL (1.8-7.7) Lymph # (Auto) 1.4 10^3/uL 10^3/ uL (0.8-4.8) [place] # (Auto) 0.5 10^3/uL 10^3/ uL (0.2-0.9) Eos # (Auto) 0.1 10^3/uL 10^3/ uL (0.0-0.8) Baso # (Auto) 0.0 10^3/uL 10^3/ uL (0.0-0.1) Nucleated RBC % (a uto) 0 % % Nucleated RBCs # 0.0 /100WBC /100W BC PT 12.80 SECONDS SEC ONDS (12.1-14.9) INR 0.94 (0.8-1.2) D-Dimer 0.52 ug/mIFEU ug/ mIFEU (0-0.59) Sodium Cancelled Potassium Cancelled Chloride Cancelled Carbon Dioxide Cancelled Anion Gap Cancelled BUN Cancelled Creatinine Cancelled GFR Calculation Cancelled Glucose Cancelled Calculated Osmolal ity Cancelled Calcium Cancelled Total Bilirubin Cancelled AST Cancelled ALT Cancelled Alkaline Phosphata se Cancelled Total Protein Cancelled Albumin Cancelled Globulin Cancelled 08/26/21 02:47 WBC RBC Hgb Hct MCV MCH MCHC RDW Plt Count MPV Neut % (Auto) Lymph % (Auto) [place] % (Auto) Eos % (Auto) Baso % (Auto) Neut # (Auto) Lymph # (Auto) [place] # (Auto) Eos # (Auto) Baso # (Auto) Nucleated RBC % (a uto) Nucleated RBCs # PT INR D-Dimer Sodium 139 mmol/L mmol/L (136-145) Potassium 3.6 mmol/L mmol/L (3.5-5.1) Chloride 106 mmol/L mmol/L (98-107) Carbon Dioxide 23 mmol/L mmol/L (22-29) Anion Gap 13.6 (5-19) BUN 14 mg/dL mg/dL (6-20) Creatinine 0.7 mg/dL mg/dL (0.5-0.9) GFR Calculation 88.9 mL/min L mL/ min (90-130) Glucose 92 mg/dL mg/dL (65-115) Calculated Osmolal ity 288 mOsm/kg mOsm/ kg (285-295) Calcium 8.9 mg/dL mg/dL (8.5-10.5) Total Bilirubin 0.3 mg/dL mg/dL (0.15-1.2) AST 15 U/L U/L (0-32) ALT 14 U/L U/L (0-33) Alkaline Phosphata se 71 IU/L IU/L (35-105) Total Protein 6.9 g/dL g/dL (6.6-8.7) Albumin 3.5 g/dL g/dL (3.5-5.2) Globulin 3.4 g/dL g/dL (1.3-4.6) Imaging Data^: CXR: Attestation: I personally reviewed and interpreted this imaging study as follows: Radiologist's impression: no acute abnormality EKG Data^: EKG 1: Attestation: I personally reviewed and interpreted this EKG as follows: EKG interpretation date: 08/26/21 EKG interpretation time: 02:07 Interpretation: sinus lizbet hr [address] or t wave abnormalities qrs 89 qtc 427 Discharge Plan Discharge Patient Disposition: Home Clinical Impression: Cough with hemoptysis Condition: Stable Prescriptions: No Action montelukast [Singulair] 10 mg tablet 10 mg PO DAILY Qty: 90 RF: 1 triamcinolone acetonide 0.1 % cream 1 applic topical TID Qty: 80 RF: 0 citalopram [Celexa] 20 mg tablet 20 mg PO DAILY Qty: 30 RF: 2 buspirone 15 mg tablet 15 mg PO BID Qty: 60 RF: 2 cetirizine 10 mg tablet 10 mg PO DAILY Qty: 20 RF: 0 docusate sodium 100 mg capsule 100 mg PO PRN RF: 0 levothyroxine 100 mcg capsule 100 mcg PO DAILY RF: 0 tramadol 50 mg tablet 50 mg PO Q6H PRN (Reason: pain) Qty: 30 RF: 0 (DME) lancets [Accu-Chek Softclix Lancets] Misc See Rx Instructions .ROUTE .MEDSUPPLY Qty: 50 RF: 0 (DME) blood-glucose meter [Accu-Chek Leeann Plus Meter] Misc See Rx Instructions .ROUTE .MEDSUPPLY Qty: 1 RF: 0 (DME) GLUCOMETER Qty: 1 RF: 0 (DME) lancets [Accu-Chek Fastclix Lancet Drum] Misc See Rx Instructions .ROUTE .MEDSUPPLY Qty: 50 RF: 0 (DME) lancing device with lancets [Accu-Chek Soft Dev Lancets] Kit See Rx Instructions .ROUTE .MEDSUPPLY Qty: 100 RF: 2 (DME) pen needle, diabetic [BD Ultra-Fine Short Pen Needle] 31 gauge x 5/16 needle See Rx Instructions .ROUTE .MEDSUPPLY Qty: 100 RF: 2 simvastatin 20 mg tablet 20 mg PO DAILY Qty: 30 RF: 5 pantoprazole [Protonix] 40 mg tablet,delayed release (DR/EC) 40 mg PO BID Qty: 180 RF: 0 (DME) Accu-Chek Leeann Plus test strp Strip See Rx Instructions .ROUTE .MEDSUPPLY Qty: 100 RF: 1 liothyronine 5 mcg tablet 5 mcg PO DAILY RF: 0 paroxetine HCl 20 mg tablet 20 mg PO DAILY RF: 0 acetaminophen [Tylenol Extra Strength] 500 mg Tablet 1,000 mg PO PRN RF: 0 Jardiance 10 mg Tablet 10 mg PO DAILY RF: 0 mupirocin 2 % ointment 1 applic TOPICAL BID Qty: 22 RF: 0 Desitin Rapid Relief 13 % cream 1 applic topical TID PRN (Reason: skin irritation) Qty: 454 RF: 0 dicyclomine 20 mg tablet 20 mg PO QID Qty: 20 RF: 0 Discharge Orders: Discharge ED (Routine); Ordered 08/26/21 Ordered By: Patricia Arroyo Discharge Diet: Advance as tolerated Discharge Activity: Resume usual activity Patient Instructions: Coughing Up Blood (Hemoptysis) (ED) Coding Level of Care Code ED Orthopedic Dentist for Chg Fwd Exam Comprehensive
[2021-08-26 02:31] LABS: Basophils % 0.7 %; Eosinophils # 0.1 10^3/uL (0.0-0.8); Eosinophils % 1.8 %; Hematocrit 45.6 % (37.0-47.0); Hemoglobin 15.1 g/dL (11.5-15.3); Lymphocytes # 1.4 10^3/uL (0.8-4.8); Lymphocytes % 22.3 %; Mean Corpuscular HGB Conc 33.1 g/dL (30.0-36.0); Mean Corpuscular Hemoglobin 30.6 pg (28.0-34.0); Mean Corpuscular Volume 92.3 fl (81-99); Mean Platelet Volume 9.4 fL (7.4-10.4); Monocytes # 0.5 10^3/uL (0.2-0.9); Monocytes % 7.8 %; Neutrophils # 4.12 10^3/uL (1.8-7.7); Neutrophils % 67.2 %; Nucleated Red Blood Cells % 0 %; Platelet Count 208 10^3/cmm (130-400); Red Blood Count 4.94 10^6/uL (4.1-5.3); White Blood Count 6.1 10^3/uL (4.0-10.0)
[2021-08-26 02:41] LABS: INR 0.94 (0.8-1.2)
[2021-08-26 02:44] LABS: D Dimer 0.52 ug/mIFEU (0-0.59)
[2021-08-26 03:18] LABS: Alanine Aminotransferase 14 U/L (0-33); Albumin Level 3.5 g/dL (3.5-5.2); Alkaline Phosphatase 71 IU/L (35-105); Anion Gap 13.6 (5-19); Aspartate Amino Transferase 15 U/L (0-32); Blood Urea Nitrogen 14 mg/dL (6-20); Calcium 8.9 mg/dL (8.5-10.5); Carbon Dioxide 23 mmol/L (22-29); Chloride 106 mmol/L (98-107); Globulin 3.4 g/dL (1.3-4.6); Glomerular Filtration Rate 88.9 mL/min (90-130); Glucose 92 mg/dL (65-115); Osmolality Calculated 288 mOsm/kg (285-295); Potassium 3.6 mmol/L (3.5-5.1); Sodium 139 mmol/L (136-145); Total Bilirubin 0.3 mg/dL (0.15-1.2); Total Protein 6.9 g/dL (6.6-8.7)
[2021-08-26 03:29] VITALS: BP 132/74; PULSE 70; RESP 16; TEMP 36.4; O2SAT 98
== END 2021-08-26 03:30 | disposition home or self-care (01) ==
PROVIDERS: Emergency Provider Emergency Medicine
DX: R04.2 Hemoptysis (principal); E11.9 Type 2 diabetes mellitus without complications; E78.5 Hyperlipidemia, unspecified; I10 Essential (primary) hypertension; Z87.891 Personal history of nicotine dependence
CPT/HCPCS: 71045; 80053; 85025; 85378; 85610; 93005; 99283

== ENCOUNTER 2021-09-06 18:45 | Emergency (ER) | payer MEDICARE, MEDICAID, SELFPAY ==
[2021-09-06 19:33] VITALS: BP 124/84; PULSE 64; RESP 16; TEMP 36.6; O2SAT 97; BMI 44.9
--- NOTE | 2021-09-06 22:41 | W.ED.NAVMDI ---
HPI - Nausea/Vomiting/Diarrhea General: Chief complaint: Nausea/Vomiting/Diarrhea Stated complaint: THROWING UP Time Seen by Provider: 09/06/21 22:37 Source: patient Mode of arrival: ambulatory Limitations: no limitations History of Present Illness: HPI Narrative: 51-year-old female who has chronic nausea and vomiting states she ate chicken today and had 1 episode of vomiting this evening. She takes dicyclomine and Zofran states that it has not helped she is got some slight abdominal cramping denies any fever denies any worsening improving factors. Associated nausea: Yes Associated symtoms: Reports nausea; Denies chest pain, dysuria or headache(s) Review of Systems Const: Denies: fever(s), chills, body aches or change in appetite Eyes: Denies: blurry vision or eye discomfort ENMT: Denies: throat pain or dental pain Card: Denies: chest pain Resp: Denies: dyspnea GI: Reports: nausea and vomiting : Denies: dysuria Musc: Denies: neck pain or back pain Skin/Breast: Denies: rash Neuro: Denies: headache(s) Psych: Denies: depression Red/Lymph: Denies: easy bruising All/Imm: Denies: urticaria PFSH ED PFSH: Medical History Acute serous otitis media of left ear Anxiety Borderline intellectual functioning Controlled type 2 diabetes mellitus, without long-term current use of insulin Depression Dyslipidemia Enrolled in chronic care management Generalized anxiety disorder GERD (gastroesophageal reflux disease) Hypertension Hypothyroidism Obesity BHARAT (obstructive sleep apnea) Psychiatric care Seizure disorder Tinnitus Surgical History History of colonoscopy with polypectomy (~09/2018) History of esophagogastroduodenoscopy (EGD) (~09/2018) History of hysterectomy with oophorectomy History of laparoscopic cholecystectomy Family History Grandmother Cancer Father Lung disease Diabetes Denies family history of Anesthesia complication Bleeding disorder Social History Quit status (tobacco): has quit using tobacco Second hand smoke exposure: No Smoking risk assessment/counseling performed?: No Alcohol intake: never Desire information about alcohol rehabilitation?: No Counseling given: No Desire information about substance/drug rehabilitation?: No Counseling given: No Adopted: No Caregiver/support person: Yes Lives independently: Yes Housing: House Marital status: Single Highest education level completed: High School Graduate service: No Current occupational status: employed 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 Current occupational exposures/hazards: No Pets and animals: Yes History of recent travel: No Sexually active: Yes Ania/Worship: None Special ania needs: No Agree to transfusion: Yes Financial difficulty paying for basics: Not Very Hard Physical Exam Const: COMMON NORMALS: no acute distress, patient oriented x3 and healthy appearing HENMT: COMMON NORMALS: normocephalic and atraumatic HEAD & SCALP: normocephalic and atraumatic Eye: COMMON NORMALS: Equal, round and reactive pupils present and EOMs intact bilaterally PUPIL: Yes Equal, round and reactive pupils present Neck/C-Spine: COMMON NORMALS: full ROM and supple Chest: COMMONS NORMALS: normal inspection of the chest and normal palpation of entire chest wall Resp: COMMON NORMALS: normal respiratory effort, No retractions, No use of accessory muscles and clear to auscultation bilaterally AUSCULTATION: clear to auscultation bilaterally Cardio: COMMON NORMALS: regular rate, regular rhythm and No murmurs present (Cardio) RATE: regular rate RHYTHM: regular rhythm GI: COMMON NORMALS: Normal to inspection, nondistended, normoactive bowel sounds present, Soft to palpation, non-tender and no masses PALPATION: Yes Soft to palpation Extremity: COMMON NORMALS: normal to inspection and full ROM Neuro: COMMON NORMALS: patient oriented x3, moves all extremities and no focal motor deficits Psych: COMMON NORMALS: mental status grossly normal, Normal thought process present and cooperative THOUGHT PROCESS: Normal thought process present Skin: COMMON NORMALS: no rashes or lesions noted and no wounds GENERAL SKIN EXAM: no rashes or lesions noted Course Vital Signs: Vital signs: Vital Signs Temperature 97.8 F 09/06/21 19:33 Pulse Rate 66 09/06/21 23:07 Respiratory Rate 16 09/06/21 23:07 Blood Pressure 139/73 09/06/21 23:07 Pulse Oximetry 97 09/06/21 23:07 MDM - Nausea/Vomiting/Diarrhea MDM Narrative: Medical decision making narrative: Patient presents here with nausea vomits chronic in nature she feels much improved after Reglan blood work here is normal exam is benign will prescribe her Reglan for home she is stable for discharge return if worsening. Lab Data: Labs: Lab Results 09/06/21 09/06/21 22:41 22:41 WBC 9.2 10^3/uL 10^3/ uL (4.0-10.0) RBC 5.29 10^6/uL 10^6 /uL (4.1-5.3) Hgb 15.6 g/dL H g/dL (11.5-15.3) Hct 48.6 % H % (37.0-47.0) MCV 91.9 fl fl (81-99) MCH 29.5 pg pg (28.0-34.0) MCHC 32.1 g/dL g/dL (30.0-36.0) RDW 13.1 % % (12.1-15.1) Plt Count 277 10^3/cmm 10^3 /cmm (130-400) MPV 9.5 fL fL (7.4-10.4) Neut % (Auto) 68.1 % % Lymph % (Auto) 23.1 % % [place] % (Auto) 6.7 % % Eos % (Auto) 1.5 % % Baso % (Auto) 0.5 % % Neut # (Auto) 6.25 10^3/uL 10^3 /uL (1.8-7.7) Lymph # (Auto) 2.1 10^3/uL 10^3/ uL (0.8-4.8) [place] # (Auto) 0.6 10^3/uL 10^3/ uL (0.2-0.9) Eos # (Auto) 0.1 10^3/uL 10^3/ uL (0.0-0.8) Baso # (Auto) 0.1 10^3/uL 10^3/ uL (0.0-0.1) Nucleated RBC % (a uto) 0 % % Nucleated RBCs # 0.0 /100WBC /100W BC Sodium 139 mmol/L mmol/L (136-145) Potassium 3.6 mmol/L mmol/L (3.5-5.1) Chloride 102 mmol/L mmol/L (98-107) Carbon Dioxide 26 mmol/L mmol/L (22-29) Anion Gap 14.6 (5-19) BUN 12 mg/dL mg/dL (6-20) Creatinine 0.7 mg/dL mg/dL (0.5-0.9) GFR Calculation 88.9 mL/min L mL/ min (90-130) Glucose 95 mg/dL mg/dL (65-115) Calculated Osmolal ity 288 mOsm/kg mOsm/ kg (285-295) Calcium 9.7 mg/dL mg/dL (8.5-10.5) Total Bilirubin 0.4 mg/dL mg/dL (0.15-1.2) AST 17 U/L U/L (0-32) ALT 17 U/L U/L (0-33) Alkaline Phosphata se 85 IU/L IU/L (35-105) Total Protein 7.8 g/dL g/dL (6.6-8.7) Albumin 4.0 g/dL g/dL (3.5-5.2) Globulin 3.8 g/dL g/dL (1.3-4.6) Lipase 51 U/L U/L (13-60) Discharge Plan Discharge Patient Disposition: Home Clinical Impression: Vomiting Qualifiers: Vomiting type: unspecified Vomiting Intractability: non-intractable Nausea presence: with nausea Qualified Code(s): R11.2 - Nausea with vomiting, unspecified Condition: Stable Prescriptions: New Reglan 10 mg tablet 10 mg PO Q6H PRN (Reason: nausea and vomiting) Qty: 20 RF: 0 No Action montelukast [Singulair] 10 mg tablet 10 mg PO DAILY Qty: 90 RF: 1 triamcinolone acetonide 0.1 % cream 1 applic topical TID Qty: 80 RF: 0 citalopram [Celexa] 20 mg tablet 20 mg PO DAILY Qty: 30 RF: 2 buspirone 15 mg tablet 15 mg PO BID Qty: 60 RF: 2 cetirizine 10 mg tablet 10 mg PO DAILY Qty: 20 RF: 0 docusate sodium 100 mg capsule 100 mg PO PRN RF: 0 levothyroxine 100 mcg capsule 100 mcg PO DAILY RF: 0 tramadol 50 mg tablet 50 mg PO Q6H PRN (Reason: pain) Qty: 30 RF: 0 (DME) lancets [Accu-Chek Softclix Lancets] Misc See Rx Instructions .ROUTE .MEDSUPPLY Qty: 50 RF: 0 (DME) blood-glucose meter [Accu-Chek Leeann Plus Meter] Misc See Rx Instructions .ROUTE .MEDSUPPLY Qty: 1 RF: 0 (DME) GLUCOMETER Qty: 1 RF: 0 (DME) lancets [Accu-Chek Fastclix Lancet Drum] Misc See Rx Instructions .ROUTE .MEDSUPPLY Qty: 50 RF: 0 (DME) lancing device with lancets [Accu-Chek Soft Dev Lancets] Kit See Rx Instructions .ROUTE .MEDSUPPLY Qty: 100 RF: 2 (DME) pen needle, diabetic [BD Ultra-Fine Short Pen Needle] 31 gauge x 5/16 needle See Rx Instructions .ROUTE .MEDSUPPLY Qty: 100 RF: 2 simvastatin 20 mg tablet 20 mg PO DAILY Qty: 30 RF: 5 pantoprazole [Protonix] 40 mg tablet,delayed release (DR/EC) 40 mg PO BID Qty: 180 RF: 0 (DME) Accu-Chek Leeann Plus test strp Strip See Rx Instructions .ROUTE .MEDSUPPLY Qty: 100 RF: 1 liothyronine 5 mcg tablet 5 mcg PO DAILY RF: 0 paroxetine HCl 20 mg tablet 20 mg PO DAILY RF: 0 acetaminophen [Tylenol Extra Strength] 500 mg Tablet 1,000 mg PO PRN RF: 0 Jardiance 10 mg Tablet 10 mg PO DAILY RF: 0 mupirocin 2 % ointment 1 applic TOPICAL BID Qty: 22 RF: 0 Desitin Rapid Relief 13 % cream 1 applic topical TID PRN (Reason: skin irritation) Qty: 454 RF: 0 dicyclomine 20 mg tablet 20 mg PO QID Qty: 20 RF: 0 Discharge Orders: Discharge ED (Routine); Ordered 09/06/21 Ordered By: Patricia Arroyo Discharge Diet: Advance as tolerated Discharge Activity: Resume usual activity Patient Instructions: Acute Nausea and Vomiting (ED) Coding Level of Care Code ED Medical Or Surgical Instrument Maker for Chg Fwd Exam Comprehensive
[2021-09-06 22:49] LABS: Basophils # 0.1 10^3/uL (0.0-0.1); Basophils % 0.5 %; Eosinophils # 0.1 10^3/uL (0.0-0.8); Eosinophils % 1.5 %; Hematocrit 48.6 % (37.0-47.0); Hemoglobin 15.6 g/dL (11.5-15.3); Lymphocytes # 2.1 10^3/uL (0.8-4.8); Lymphocytes % 23.1 %; Mean Corpuscular HGB Conc 32.1 g/dL (30.0-36.0); Mean Corpuscular Hemoglobin 29.5 pg (28.0-34.0); Mean Corpuscular Volume 91.9 fl (81-99); Mean Platelet Volume 9.5 fL (7.4-10.4); Monocytes # 0.6 10^3/uL (0.2-0.9); Monocytes % 6.7 %; Neutrophils # 6.25 10^3/uL (1.8-7.7); Neutrophils % 68.1 %; Nucleated Red Blood Cells % 0 %; Platelet Count 277 10^3/cmm (130-400); Red Blood Count 5.29 10^6/uL (4.1-5.3); Red Cell Distribution Width 13.1 % (12.1-15.1); White Blood Count 9.2 10^3/uL (4.0-10.0)
[2021-09-06] MEDS: metoclopramide 5 mg/mL SDV 2 mL 10 MG IVP (23:06)
[2021-09-06] MEDS: sodium chloride 0.9% 1,000 ML 999 ML IV (23:06)
[2021-09-06 23:07] VITALS: BP 139/73; PULSE 66; RESP 16; O2SAT 97
[2021-09-06 23:08] LABS: Alanine Aminotransferase 17 U/L (0-33); Alkaline Phosphatase 85 IU/L (35-105); Anion Gap 14.6 (5-19); Aspartate Amino Transferase 17 U/L (0-32); Blood Urea Nitrogen 12 mg/dL (6-20); Calcium 9.7 mg/dL (8.5-10.5); Carbon Dioxide 26 mmol/L (22-29); Chloride 102 mmol/L (98-107); Globulin 3.8 g/dL (1.3-4.6); Glomerular Filtration Rate 88.9 mL/min (90-130); Glucose 95 mg/dL (65-115); Lipase 51 U/L (13-60); Osmolality Calculated 288 mOsm/kg (285-295); Potassium 3.6 mmol/L (3.5-5.1); Sodium 139 mmol/L (136-145); Total Bilirubin 0.4 mg/dL (0.15-1.2); Total Protein 7.8 g/dL (6.6-8.7)
[2021-09-06 23:44] VITALS: BP 139/73; PULSE 88; RESP 16; O2SAT 99
== END 2021-09-06 23:46 | disposition home or self-care (01) ==
PROVIDERS: Emergency Provider Emergency Medicine
DX: R11.2 Nausea with vomiting, unspecified (principal); K21.9 Gastro-esophageal reflux disease without esophagitis; E11.9 Type 2 diabetes mellitus without complications; Z79.84 Long term (current) use of oral hypoglycemic drugs; I10 Essential (primary) hypertension; Z87.891 Personal history of nicotine dependence
CPT/HCPCS: 80053; 83690; 85025; 96361; 96374; 96375; 99284; J2765; J7030

== ENCOUNTER 2021-09-10 06:00 | Outpatient (RCR) | payer MEDICARE, MEDICAID, SELFPAY | END 2021-09-11 23:00 | disposition home or self-care (01) | LOC: SPT 06:00 | PROVIDERS: Referring Provider Orthopaedic Surgery; Visit Provider Orthopaedic Surgery | DX: M75.02 Adhesive capsulitis of left shoulder (principal) | CPT/HCPCS: 97110 ==

== ENCOUNTER 2021-10-18 18:43 | Emergency (ER) | payer MEDICARE, MEDICAID, SELFPAY ==
[2021-10-18 19:14] VITALS: BP 127/79; PULSE 65; RESP 18; TEMP 36.2; O2SAT 98; BMI 43.4
--- NOTE | 2021-10-18 21:30 | ED_ITS ---
HPI - Extremity Problem General: Chief complaint: Extremity Problem,Nontraumatic Stated complaint: Rt top Shoulder\Neck Pain Time Seen by Provider: 10/18/21 21:06 Source: patient Mode of arrival: ambulatory Limitations: no limitations History of Present Illness: HPI Narrative: Patient is a 51-year-old female who presents to ED today with a complaint of her left chronic shoulder pain. Patient states she had been seen orthopedics for an adhesive capsulitis to her left shoulder. She underwent physical therapy and was reportedly improving however states over the past several days her shoulder has seemed to worsen again. She had an appointment 2 days ago at the orthopedic clinic that she missed. Patient states her pain today is identical to the pain she has had over the past few months. MD Complaint: joint pain Onset (ago): month(s) Pain Consistency: constant Location: left and upper extremity Radiation: none Exacerbating factors: range of motion Associated symptoms: Reports no associated symptoms; Deny chest pain Review of Systems Card: Denies: chest pain Resp: Denies: dyspnea Musc: Reports: joint pain (L shoulder); Denies: neck pain, back pain, extremity pain, extremity swelling, joint swelling or joint redness Neuro: Denies: numbness in extremities, weakness in extremities or sensory changes PFSH ED PFSH: Medical History Acute serous otitis media of left ear Anxiety Borderline intellectual functioning Controlled type 2 diabetes mellitus, without long-term current use of insulin Depression Dyslipidemia Enrolled in chronic care management Generalized anxiety disorder GERD (gastroesophageal reflux disease) Hypertension Hypothyroidism Obesity BHARAT (obstructive sleep apnea) Psychiatric care Seizure disorder Tinnitus Surgical History History of colonoscopy with polypectomy (~09/2018) History of esophagogastroduodenoscopy (EGD) (~09/2018) History of hysterectomy with oophorectomy History of laparoscopic cholecystectomy Family History Grandmother Cancer Father Lung disease Diabetes Denies family history of Anesthesia complication Bleeding disorder Social History Quit status (tobacco): has quit using tobacco Second hand smoke exposure: No Smoking risk assessment/counseling performed?: No Alcohol intake: never Desire information about alcohol rehabilitation?: No Counseling given: No Desire information about substance/drug rehabilitation?: No Counseling given: No Adopted: No Caregiver/support person: Yes Lives independently: Yes Housing: House Marital status: Single Highest education level completed: High School Graduate service: No Current occupational status: employed 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 Current occupational exposures/hazards: No Pets and animals: Yes History of recent travel: No Sexually active: Yes Ania/Jehovah'S Witness: None Special ania needs: No Agree to transfusion: Yes Financial difficulty paying for basics: Not Very Hard Physical Exam Const: COMMON NORMALS: no acute distress, patient oriented x3, no limitations and alert NUTRITIONAL APPEARANCE: obese morbidly obese Extremity: COMMON NORMALS: normal to inspection and capillary refill normal GENERAL: Yes normal exam except as noted LEFT UPPER EXTREMITY: Yes shoulder joint (TTP posterior shoulder) Left shoulder joint: Yes ROM (maintains fairly good ROM) and Yes neurovascular exam (normal) Neuro: COMMON NORMALS: patient oriented x3, moves all extremities, no focal motor deficits and no sensory deficits noted SENSORIUM/ORIENTATION: Yes alert Skin: COMMON NORMALS: no rashes or lesions noted GENERAL SKIN EXAM: no rashes or lesions noted TRAUMA: no lacerations or abrasions Course Vital Signs: Vital signs: Vital Signs Temperature 97.2 F L 10/18/21 19:14 Pulse Rate 65 10/18/21 19:14 Respiratory Rate 18 10/18/21 19:14 Blood Pressure 127/79 10/18/21 19:14 Pulse Oximetry 98 10/18/21 19:14 MDM - Extremity (Nontraumatic) MDM Narrative: Medical decision making narrative: Recommend she reschedule her appointment with orthopedic clinic for further evaluation. Will place on muscle relaxers and steroids for her increased discomfort. There is no indication for controlled pain medications. Patient states she cannot take NSAIDs secondary to previous gastric bypass. Discharge Plan Discharge Patient Disposition: Home Clinical Impression: Chronic left shoulder pain Condition: Stable Prescriptions: New cyclobenzaprine 10 mg tablet 10 mg PO TID Qty: 14 RF: 0 Medrol (Solitario) 4 mg tablets,dose pack See Rx Instructions .ROUTE .COMPLEX Qty: 21 RF: 0 No Action montelukast [Singulair] 10 mg tablet 10 mg PO DAILY Qty: 90 RF: 1 triamcinolone acetonide 0.1 % cream 1 applic topical TID Qty: 80 RF: 0 citalopram [Celexa] 20 mg tablet 20 mg PO DAILY Qty: 30 RF: 2 buspirone 15 mg tablet 15 mg PO BID Qty: 60 RF: 2 cetirizine 10 mg tablet 10 mg PO DAILY Qty: 20 RF: 0 docusate sodium 100 mg capsule 100 mg PO PRN RF: 0 levothyroxine 100 mcg capsule 100 mcg PO DAILY RF: 0 tramadol 50 mg tablet 50 mg PO Q6H PRN (Reason: pain) Qty: 30 RF: 0 (DME) lancets [Accu-Chek Softclix Lancets] Misc See Rx Instructions .ROUTE .MEDSUPPLY Qty: 50 RF: 0 (DME) blood-glucose meter [Accu-Chek Leeann Plus Meter] Misc See Rx Instructions .ROUTE .MEDSUPPLY Qty: 1 RF: 0 (DME) GLUCOMETER Qty: 1 RF: 0 (DME) lancets [Accu-Chek Fastclix Lancet Drum] Misc See Rx Instructions .ROUTE .MEDSUPPLY Qty: 50 RF: 0 (DME) lancing device with lancets [Accu-Chek Soft Dev Lancets] Kit See Rx Instructions .ROUTE .MEDSUPPLY Qty: 100 RF: 2 (DME) pen needle, diabetic [BD Ultra-Fine Short Pen Needle] 31 gauge x 5/16 needle See Rx Instructions .ROUTE .MEDSUPPLY Qty: 100 RF: 2 simvastatin 20 mg tablet 20 mg PO DAILY Qty: 30 RF: 5 pantoprazole [Protonix] 40 mg tablet,delayed release (DR/EC) 40 mg PO BID Qty: 180 RF: 0 (DME) Accu-Chek Leeann Plus test strp Strip See Rx Instructions .ROUTE .MEDSUPPLY Qty: 100 RF: 1 liothyronine 5 mcg tablet 5 mcg PO DAILY RF: 0 paroxetine HCl 20 mg tablet 20 mg PO DAILY RF: 0 acetaminophen [Tylenol Extra Strength] 500 mg Tablet 1,000 mg PO PRN RF: 0 Jardiance 10 mg Tablet 10 mg PO DAILY RF: 0 Reglan 10 mg tablet 10 mg PO Q6H PRN (Reason: nausea and vomiting) Qty: 20 RF: 0 mupirocin 2 % ointment 1 applic TOPICAL BID Qty: 22 RF: 0 Desitin Rapid Relief 13 % cream 1 applic topical TID PRN (Reason: skin irritation) Qty: 454 RF: 0 dicyclomine 20 mg tablet 20 mg PO QID Qty: 20 RF: 0 Discharge Orders: Discharge ED (Routine); Ordered 10/18/21 Ordered By: Jacqueline Chan Coding Level of Care Code ED Air Analysis Engineering Technician for Robyn Ruiz
[2021-10-18 21:42] VITALS: PULSE 82; RESP 16; O2SAT 96
== END 2021-10-18 21:42 | disposition home or self-care (01) ==
PROVIDERS: Emergency Provider Physician Assistant
DX: G89.29 Other chronic pain (principal); M25.512 Pain in left shoulder; E11.9 Type 2 diabetes mellitus without complications; E78.5 Hyperlipidemia, unspecified; I10 Essential (primary) hypertension; Z87.891 Personal history of nicotine dependence
CPT/HCPCS: 99282

== ENCOUNTER 2021-11-13 17:09 | Emergency (ER) | payer MEDICARE, MEDICAID, SELFPAY ==
[2021-11-13 17:27] VITALS: BP 143/94; PULSE 77; RESP 16; TEMP 37.3; O2SAT 98
[2021-11-13 18:48] LABS: HCG Qualitative Urine. Negative (Negative)
[2021-11-13 19:26] LABS: Urine Appearance Hazy (CLEAR); Urine Color Yellow (Yellow); pH Urine 5 (5-7)
[2021-11-13 19:27] LABS: Add Urine Culture? No; Add Urine Microscopic? YES; Bacteria Urine 2+ /hpf; Bilirubin Urine Neg (Negative); Blood Urine Neg (Negative); Calcium Oxalate Crystals Urine 0-4 /hpf; Glucose Urine UA Norm (Normal); Ketones Urine Negative (Negative); Leukocyte Esterase Urine Trace (Negative); Nitrate Urine Negative (Negative); Protein Urine Neg (Negative); RBC Urine 0-4 /hpf (0-2); Squamous Epithelial Cell Urine 15-25 /hpf (0-5); Urobilinogen Urine 1 mg/dL (Negative)
--- NOTE | 2021-11-13 20:40 | W.ED.FEMALGU ---
HPI - Female Genitourinary General: Chief complaint: Urogenital-Female Stated complaint: vaginal discharge Time Seen by Provider: 11/13/21 20:34 History of Present Illness: HPI Narrative: Patient is a 51-year-old female comes to the ED with UTI symptoms. She states that today she started having some urine that was malodorous. She also endorses having some mild dysuria. Denies any fever, chills, abdominal pain, vaginal discharge, vaginal bleeding, vaginal itching or any vaginal pain. Associated symptoms: Deny abdominal pain, headache(s), nausea or vaginal discharge Review of Systems Const: Denies: fever(s), chills or fatigue Eyes: Denies: change in vision or eye discomfort ENMT: Denies: throat pain, odynophagia, nasal discharge or nasal congestion Card: Denies: chest pain, palpitations, edema, swelling of feet/ankles, dyspnea on exertion or orthopnea Resp: Denies: dyspnea, productive cough or non-productive cough GI: Denies: abdominal pain, nausea, vomiting, diarrhea, constipation or hematochezia : Reports: dysuria and other (Malodorous urine); Denies: flank pain, hematuria, genital pruritis, vaginal bleeding or vaginal discharge Musc: Denies: neck pain, back pain or extremity swelling Skin/Breast: Denies: rash or new lesions Neuro: Denies: headache(s), numbness in extremities or weakness in extremities PFSH ED PFSH: Medical History Acute serous otitis media of left ear Anxiety Borderline intellectual functioning Controlled type 2 diabetes mellitus, without long-term current use of insulin Depression Dyslipidemia Enrolled in chronic care management Generalized anxiety disorder GERD (gastroesophageal reflux disease) Hypertension Hypothyroidism Obesity BHARAT (obstructive sleep apnea) Psychiatric care Seizure disorder Tinnitus Surgical History History of colonoscopy with polypectomy (~09/2018) History of esophagogastroduodenoscopy (EGD) (~09/2018) History of hysterectomy with oophorectomy History of laparoscopic cholecystectomy Family History Grandmother Cancer Father Lung disease Diabetes Denies family history of Anesthesia complication Bleeding disorder Social History Quit status (tobacco): has quit using tobacco Second hand smoke exposure: No Smoking risk assessment/counseling performed?: No Alcohol intake: never Desire information about alcohol rehabilitation?: No Counseling given: No Desire information about substance/drug rehabilitation?: No Counseling given: No Adopted: No Caregiver/support person: Yes Lives independently: Yes Housing: House Marital status: Single Highest education level completed: High School Graduate service: No Current occupational status: employed 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 Current occupational exposures/hazards: No Pets and animals: Yes History of recent travel: No Sexually active: Yes Ania/Restorationism: None Special ania needs: No Agree to transfusion: Yes Financial difficulty paying for basics: Not Very Hard Physical Exam Const: COMMON NORMALS: no acute distress, patient oriented x3, healthy appearing and alert GENERAL APPEARANCE: cooperative and comfortable NUTRITIONAL APPEARANCE: obese HENMT: COMMON NORMALS: normocephalic HEAD & SCALP: normocephalic MOUTH: Normal oral and palatal mucosa present THROAT: posterior oropharynx normal and uvula midline Neck/C-Spine: COMMON NORMALS: supple GENERAL: Yes normal visual inspection Resp: COMMON NORMALS: normal respiratory effort, No retractions, No use of accessory muscles and clear to auscultation bilaterally AUSCULTATION: clear to auscultation bilaterally Cardio: COMMON NORMALS: regular rate, regular rhythm, S1 normal heart sound present, S2 normal heart sound present, No gallops present (Cardio), No clicks present (Cardio), No murmurs present (Cardio) and Peripheral pulses 2+ throughout RATE: regular rate RHYTHM: regular rhythm HEART SOUNDS: S1 normal heart sound present and S2 normal heart sound present PERIPHERAL PULSES: Peripheral pulses 2+ throughout GI: COMMON NORMALS: Normal to inspection, nondistended, normoactive bowel sounds present, Soft to palpation, non-tender and no masses PALPATION: Yes Soft to palpation : COMMON NORMALS: Yes no CVA tenderness BLADDER/KIDNEY EXAM: Yes no CVA tenderness Back/Pelvis: COMMON NORMALS: no CVA tenderness Extremity: COMMON NORMALS: normal to inspection Neuro: COMMON NORMALS: patient oriented x3 and moves all extremities SENSORIUM/ORIENTATION: Yes alert Skin: GENERAL SKIN EXAM: dry skin Course Vital Signs: Vital signs: Vital Signs Temperature 99.2 F 11/13/21 17:27 Pulse Rate 77 11/13/21 17:27 Respiratory Rate 16 11/13/21 17:27 Blood Pressure 143/94 11/13/21 17:27 Pulse Oximetry 98 11/13/21 17:27 MDM - Female MDM Narrative: Medical decision making narrative: Patient is a 51-year-old female comes to the ED with UTI symptoms. She is afebrile and the rest of vitals are stable. Exam is benign. Patient appears nontoxic and in no acute distress or pain. UA shows some blood, bacteria and white blood cells. With patient's UTI symptoms and UA findings patient diagnosed with a UTI. She was discharged home with a prescription for cefdinir. She was told to follow-up with her PCP in 7 to 10 days reevaluation. Return ED precautions given. Patient understood agree with plan. Lab Data: Attestation: I reviewed the patient's lab results. Labs: Lab Results 11/13/21 11/13/21 17:30 17:30 HCG, Qual Negative (Negative) Urine Color Yellow (Yellow) Urine Appearance Hazy A (CLEAR) Urine pH 5 (5-7) Ur Specific Gravit y 1.020 (1.005-1.030) Urine Protein Neg (Negative) Urine Glucose (UA) Norm (Normal) Urine Ketones Negative (Negative) Urine Blood Neg (Negative) Urine Nitrate Negative (Negative) Urine Bilirubin Neg (Negative) Urine Urobilinogen 1 mg/dL H mg/dL (Negative) Ur Leukocyte Cleo ase Trace H (Negative) Urine RBC 0-4 /hpf H /hpf (0-2) Urine WBC 5-10 /hpf H /hpf (0-5) Ur Squamous Epith Cells 15-25 /hpf H /hpf (0-5) Calcium Oxalate Cr ystal 0-4 /hpf H /hpf Amorphous Sediment Not Reportable Urine Bacteria 2+ /hpf H /hpf (NONE) Discharge Plan Discharge Patient Disposition: Home Clinical Impression: UTI (urinary tract infection) Qualifiers: Urinary tract infection type: acute cystitis Hematuria presence: with hematuria Qualified Code(s): N30.01 - Acute cystitis with hematuria Condition: Stable Prescriptions: New cefdinir 300 mg capsule 300 mg PO BID 10 Days Qty: 20 RF: 0 No Action montelukast [Singulair] 10 mg tablet 10 mg PO DAILY Qty: 90 RF: 1 triamcinolone acetonide 0.1 % cream 1 applic topical TID Qty: 80 RF: 0 citalopram [Celexa] 20 mg tablet 20 mg PO DAILY Qty: 30 RF: 2 buspirone 15 mg tablet 15 mg PO BID Qty: 60 RF: 2 cetirizine 10 mg tablet 10 mg PO DAILY Qty: 20 RF: 0 docusate sodium 100 mg capsule 100 mg PO PRN RF: 0 levothyroxine 100 mcg capsule 100 mcg PO DAILY RF: 0 tramadol 50 mg tablet 50 mg PO Q6H PRN (Reason: pain) Qty: 30 RF: 0 (DME) lancets [Accu-Chek Softclix Lancets] Misc See Rx Instructions .ROUTE .MEDSUPPLY Qty: 50 RF: 0 (DME) blood-glucose meter [Accu-Chek Leeann Plus Meter] Misc See Rx Instructions .ROUTE .MEDSUPPLY Qty: 1 RF: 0 (DME) GLUCOMETER Qty: 1 RF: 0 (DME) lancets [Accu-Chek Fastclix Lancet Drum] Misc See Rx Instructions .ROUTE .MEDSUPPLY Qty: 50 RF: 0 (DME) lancing device with lancets [Accu-Chek Soft Dev Lancets] Kit See Rx Instructions .ROUTE .MEDSUPPLY Qty: 100 RF: 2 (DME) pen needle, diabetic [BD Ultra-Fine Short Pen Needle] 31 gauge x 5/16 needle See Rx Instructions .ROUTE .MEDSUPPLY Qty: 100 RF: 2 simvastatin 20 mg tablet 20 mg PO DAILY Qty: 30 RF: 5 pantoprazole [Protonix] 40 mg tablet,delayed release (DR/EC) 40 mg PO BID Qty: 180 RF: 0 (DME) Accu-Chek Leeann Plus test strp Strip See Rx Instructions .ROUTE .MEDSUPPLY Qty: 100 RF: 1 liothyronine 5 mcg tablet 5 mcg PO DAILY RF: 0 paroxetine HCl 20 mg tablet 20 mg PO DAILY RF: 0 acetaminophen [Tylenol Extra Strength] 500 mg Tablet 1,000 mg PO PRN RF: 0 Jardiance 10 mg Tablet 10 mg PO DAILY RF: 0 Reglan 10 mg tablet 10 mg PO Q6H PRN (Reason: nausea and vomiting) Qty: 20 RF: 0 cyclobenzaprine 10 mg tablet 10 mg PO TID Qty: 14 RF: 0 Medrol (Solitario) 4 mg tablets,dose pack See Rx Instructions .ROUTE .COMPLEX Qty: 21 RF: 0 mupirocin 2 % ointment 1 applic TOPICAL BID Qty: 22 RF: 0 Desitin Rapid Relief 13 % cream 1 applic topical TID PRN (Reason: skin irritation) Qty: 454 RF: 0 dicyclomine 20 mg tablet 20 mg PO QID Qty: 20 RF: 0 Discharge Orders: Discharge ED (Routine); Ordered 11/13/21 Ordered By: Khris Craig Discharge Diet: Regular Discharge Activity: Resume usual activity Patient Instructions: Urinary Tract Infection in Women (DC) Activity Restrictions/Additional Instructions: Follow-up with medical provider as directed in 7 to 10 days for reevaluation. Take medications as prescribed. Return to the ER or your medical provider if condition worsens. Please read and understand discharge instructions. Thank you for choosing [facility] for your healthcare needs today. Please realize this is an emergency room and that we are providing you with a medical screening exam and this may not be complete and all inclusive of all the testing and or work up that you may need to determine your ailment or severity of your illness. It is very important that you follow up as instructed or that you return to the Emergency Department should you have concerns or if your condition changes or worsens in any way. Coding Level of Care Code ED Police Department Secretary for Robyn Ruiz Exam Comprehensive
[2021-11-13 21:14] VITALS: BP 157/73; PULSE 70; RESP 18; O2SAT 100
[2021-11-13] MEDS: cefdinir 300 MG CAPSULE PO (21:20)
== END 2021-11-13 21:21 | disposition home or self-care (01) ==
PROVIDERS: Emergency Medicine; Emergency Provider Physician Assistant
DX: N30.01 Acute cystitis with hematuria (principal); E11.9 Type 2 diabetes mellitus without complications; E78.5 Hyperlipidemia, unspecified; I10 Essential (primary) hypertension; Z87.891 Personal history of nicotine dependence
CPT/HCPCS: 81001; 81025; 99283

== ENCOUNTER 2021-12-01 20:40 | Emergency (ER) | payer MEDICARE, MEDICAID, SELFPAY ==
[2021-12-01 20:46] VITALS: BP 132/84; PULSE 74; RESP 18; TEMP 36.4; O2SAT 100; BMI 41.6
--- NOTE | 2021-12-01 22:11 | W.ED.DIZZY ---
HPI - Dizziness General: Chief Complaint: Dizziness Stated Complaint: N\V\ Dizzy Alergic Reaction Time Seen by Provider: 12/01/21 21:55 History of Present Illness: HPI Narrative: Patient is a 51-year-old female comes to the ED with complaints of a pruritic rash on abdomen. Patient also complained of having episodes of some lightheadedness and dizziness that occurs when she stands up initially. Episodes are brief. Says the episodes do not last very long and only occur randomly when she is up and moving around. She does admit that over the past couple weeks she has not been drinking as much fluids as normal. Denies any chest pain, syncope or shortness of breath. She says she does not currently have any lightheadedness or dizziness. She does report having a pruritic rash on abdomen that started approximately 3 days ago. Denies any change in soaps, lotions, detergents. Denies any known allergies to foods. Associated symptoms: Denies chest pain, chills, headache(s), nausea, nasal congestion, palpitations or vomiting Associated neuro symptoms: Deny numbness in extremities Review of Systems Const: Denies: fever(s), chills or fatigue Eyes: Denies: change in vision or eye discomfort ENMT: Denies: throat pain, odynophagia, nasal discharge or nasal congestion Card: Reports: lightheadedness; Denies: chest pain, palpitations, edema, swelling of feet/ankles, dyspnea on exertion or orthopnea Resp: Denies: dyspnea, productive cough or non-productive cough GI: Denies: abdominal pain, nausea, vomiting, diarrhea, constipation or hematochezia : Denies: flank pain, dysuria or hematuria Musc: Denies: neck pain, back pain or extremity swelling Skin/Breast: Denies: rash or new lesions Neuro: Reports: dizziness; Denies: headache(s), numbness in extremities or weakness in extremities PFSH ED PFSH: Medical History Acute serous otitis media of left ear Anxiety Borderline intellectual functioning Controlled type 2 diabetes mellitus, without long-term current use of insulin Depression Dyslipidemia Enrolled in chronic care management Generalized anxiety disorder GERD (gastroesophageal reflux disease) Hypertension Hypothyroidism Obesity BHARAT (obstructive sleep apnea) Psychiatric care Seizure disorder Tinnitus Surgical History History of colonoscopy with polypectomy (~09/2018) History of esophagogastroduodenoscopy (EGD) (~09/2018) History of hysterectomy with oophorectomy History of laparoscopic cholecystectomy Family History Grandmother Cancer Father Lung disease Diabetes Denies family history of Anesthesia complication Bleeding disorder Social History Quit status (tobacco): has quit using tobacco Second hand smoke exposure: No Smoking risk assessment/counseling performed?: No Alcohol intake: never Desire information about alcohol rehabilitation?: No Counseling given: No Desire information about substance/drug rehabilitation?: No Counseling given: No Adopted: No Caregiver/support person: Yes Lives independently: Yes Housing: House Marital status: Single Highest education level completed: High School Graduate service: No Current occupational status: employed 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 Current occupational exposures/hazards: No Pets and animals: Yes History of recent travel: No Sexually active: Yes Ania/Rastafari: None Special ania needs: No Agree to transfusion: Yes Financial difficulty paying for basics: Not Very Hard Physical Exam Const: COMMON NORMALS: no acute distress, patient oriented x3 and alert GENERAL APPEARANCE: cooperative and comfortable HENMT: COMMON NORMALS: normocephalic HEAD & SCALP: normocephalic MOUTH: Normal oral and palatal mucosa present THROAT: posterior oropharynx normal and uvula midline Neck/C-Spine: COMMON NORMALS: supple GENERAL: Yes normal visual inspection Resp: COMMON NORMALS: normal respiratory effort, No retractions, No use of accessory muscles and clear to auscultation bilaterally AUSCULTATION: clear to auscultation bilaterally Cardio: COMMON NORMALS: regular rate, regular rhythm, S1 normal heart sound present, S2 normal heart sound present, No gallops present (Cardio), No clicks present (Cardio), No murmurs present (Cardio) and Peripheral pulses 2+ throughout RATE: regular rate RHYTHM: regular rhythm HEART SOUNDS: S1 normal heart sound present and S2 normal heart sound present PERIPHERAL PULSES: Peripheral pulses 2+ throughout GI: COMMON NORMALS: Normal to inspection, nondistended, normoactive bowel sounds present, Soft to palpation, non-tender and no masses PALPATION: Yes Soft to palpation : COMMON NORMALS: Yes no CVA tenderness BLADDER/KIDNEY EXAM: Yes no CVA tenderness Back/Pelvis: COMMON NORMALS: no CVA tenderness Extremity: COMMON NORMALS: normal to inspection Neuro: COMMON NORMALS: patient oriented x3, CN's II-XII intact bilaterally, moves all extremities, no focal motor deficits, no sensory deficits noted and gait normal SENSORIUM/ORIENTATION: Yes alert GAIT: Yes Normal gait present Skin: NARRATIVE SKIN EXAM: Patient has an erythemic macular pruritic rash on right side of abdomen. GENERAL SKIN EXAM: dry skin Course Vital Signs: Vital signs: Vital Signs Temperature 97.6 F 12/01/21 22:19 Pulse Rate 97 12/01/21 22:19 Respiratory Rate 18 12/01/21 22:19 Blood Pressure 107/79 12/01/21 22:19 Pulse Oximetry 99 12/01/21 22:19 Orthostatic vitals were negative for orthostatic hypotension MDM - Dizziness MDM Narrative: Medical decision making narrative: Patient is a 51-year-old female who comes to the ED with a pruritic rash on abdomen and some episodes of lightheadedness. Patient says the lightheadedness occurs randomly when she is up and moving around and does not last long. She says she has not been drinking as much fluids as she usually does. Denies any chest pain, syncopal episodes or any shortness of breath. She is not currently having any dizziness or lightheadedness. Vital stable. Exam is benign. Neuro exam showed no deficits. Patient has erythemic macular pruritic rash on right side of abdomen likely a form of dermatitis. Orthostatic vitals are negative for any orthostatic hypotension. Patient diagnosed with episodes of lightheadedness and dermatitis. She was discharged home with a prescription for triamcinolone cream for rash. She was told to follow-up with her PCP in 7 to 10 days reevaluation. Return to ED precautions given. Patient understood and agree with plan. Lab Data: Labs: Lab Results 12/01/21 22:31 POC Glucose 92 mg/dL mg/dL (70-110) Discharge Plan Discharge Patient Disposition: Home Clinical Impression: Dermatitis, Episodic lightheadedness Condition: Stable Prescriptions: New triamcinolone acetonide 0.1 % cream 1 applic topical BID PRN (Reason: puritic rash) Qty: 453.6 RF: 0 No Action montelukast [Singulair] 10 mg tablet 10 mg PO DAILY Qty: 90 RF: 1 triamcinolone acetonide 0.1 % cream 1 applic topical TID Qty: 80 RF: 0 citalopram [Celexa] 20 mg tablet 20 mg PO DAILY Qty: 30 RF: 2 buspirone 15 mg tablet 15 mg PO BID Qty: 60 RF: 2 cetirizine 10 mg tablet 10 mg PO DAILY Qty: 20 RF: 0 cyclobenzaprine 7.5 mg tablet 7.5 mg PO TID PRN (Reason: muscle spasm) Qty: 14 RF: 0 docusate sodium 100 mg capsule 100 mg PO PRN RF: 0 levothyroxine 100 mcg capsule 100 mcg PO DAILY RF: 0 tramadol 50 mg tablet 50 mg PO Q6H PRN (Reason: pain) Qty: 30 RF: 0 (DME) lancets [Accu-Chek Softclix Lancets] Misc See Rx Instructions .ROUTE .MEDSUPPLY Qty: 50 RF: 0 (DME) blood-glucose meter [Accu-Chek Leeann Plus Meter] Misc See Rx Instructions .ROUTE .MEDSUPPLY Qty: 1 RF: 0 (DME) GLUCOMETER Qty: 1 RF: 0 (DME) lancets [Accu-Chek Fastclix Lancet Drum] Misc See Rx Instructions .ROUTE .MEDSUPPLY Qty: 50 RF: 0 (DME) lancing device with lancets [Accu-Chek Soft Dev Lancets] Kit See Rx Instructions .ROUTE .MEDSUPPLY Qty: 100 RF: 2 (DME) pen needle, diabetic [BD Ultra-Fine Short Pen Needle] 31 gauge x 5/16 needle See Rx Instructions .ROUTE .MEDSUPPLY Qty: 100 RF: 2 simvastatin 20 mg tablet 20 mg PO DAILY Qty: 30 RF: 5 pantoprazole [Protonix] 40 mg tablet,delayed release (DR/EC) 40 mg PO BID Qty: 180 RF: 0 (DME) Accu-Chek Leeann Plus test strp Strip See Rx Instructions .ROUTE .MEDSUPPLY Qty: 100 RF: 1 liothyronine 5 mcg tablet 5 mcg PO DAILY RF: 0 paroxetine HCl 20 mg tablet 20 mg PO DAILY RF: 0 acetaminophen [Tylenol Extra Strength] 500 mg Tablet 1,000 mg PO PRN RF: 0 Jardiance 10 mg Tablet 10 mg PO DAILY RF: 0 Reglan 10 mg tablet 10 mg PO Q6H PRN (Reason: nausea and vomiting) Qty: 20 RF: 0 mupirocin 2 % ointment 1 applic TOPICAL BID Qty: 22 RF: 0 Desitin Rapid Relief 13 % cream 1 applic topical TID PRN (Reason: skin irritation) Qty: 454 RF: 0 dicyclomine 20 mg tablet 20 mg PO QID Qty: 20 RF: 0 Discharge Orders: Discharge ED (Routine); Ordered 12/01/21 Ordered By: Khris Craig Discharge Diet: Regular Discharge Activity: Resume usual activity Patient Instructions: Lightheadedness (ED), Dermatitis (ED) Activity Restrictions/Additional Instructions: Follow-up with medical provider as directed. Take medications as prescribed. Return to the ER or your medical provider if condition worsens. Please read and understand discharge instructions. Thank you for choosing [facility] for your healthcare needs today. Please realize this is an emergency room and that we are providing you with a medical screening exam and this may not be complete and all inclusive of all the testing and or work up that you may need to determine your ailment or severity of your illness. It is very important that you follow up as instructed or that you return to the Emergency Department should you have concerns or if your condition changes or worsens in any way. Coding Level of Care Code ED Merchandise Appraiser for Robyn Ruiz Exam Comprehensive
[2021-12-01 22:16] VITALS: BP 107/79; BP 116/81; BP 120/80; PULSE 64; PULSE 73; PULSE 90
[2021-12-01 22:19] VITALS: BP 107/79; PULSE 97; RESP 18; TEMP 36.4; O2SAT 99
[2021-12-01 22:36] LABS: Glucose Point of Care 92 mg/dL (70-110)
== END 2021-12-01 22:45 | disposition home or self-care (01) ==
PROVIDERS: Emergency Provider Physician Assistant
DX: R42 Dizziness and giddiness (principal); L30.9 Dermatitis, unspecified; E11.9 Type 2 diabetes mellitus without complications; E78.5 Hyperlipidemia, unspecified; I10 Essential (primary) hypertension; Z87.891 Personal history of nicotine dependence
CPT/HCPCS: 36416; 82962; 99282

== ENCOUNTER → 2021-12-25 17:42 | Outpatient (BNVA) | payer MEDICARE, MEDICAID, SELFPAY | PROVIDERS: Visit Provider Nurse Practitioner | DX: N39.0 Urinary tract infection, site not specified (principal) | CPT/HCPCS: 81000 ==

== ENCOUNTER 2021-12-27 19:42 | Emergency (ER) | payer MEDICARE, MEDICAID, SELFPAY ==
[2021-12-27 19:48] VITALS: BP 135/82; PULSE 66; RESP 18; TEMP 36.7; O2SAT 99; BMI 41.9
--- NOTE | 2021-12-27 20:06 | ED_ITS ---
HPI - Nausea/Vomiting/Diarrhea General: Chief complaint: Nausea/Vomiting/Diarrhea Stated complaint: N\V Dizzy Time Seen by Provider: 12/27/21 19:54 History of Present Illness: Patient is a 51-year-old female comes to the ED with nausea and vomiting. Patient says at work towards the end of her shift she had a near syncopal episode and was very dizzy/lightheaded. Dizziness not like r oom spinning but says she just felt really off balance. Denies any loss of consciousness, fall or head injury. Denies any chest pain or shortness of breath. After she got off work she then started having nausea and vomiting and has not been able to keep anything down. She said her symptoms started after she ate some corn. She is currently being treated for a UTI and is on an antibiotic and started taking her first dose today. She has a history of a gastric bypass surgery approximately a year ago. She says she has had these episodes where she gets nauseous and vomits multiple times over the past year since surgery. Denies any abdominal pain or any current bladder or bowel symptoms. She says she was constipated couple days ago but that has improved. Reports some chills but denies any fever, upper respiratory symptoms. Associated nausea: Yes Associated symtoms: Reports nausea; Denies change in vision, chest pain, dizziness, dysuria, fatigue, headache(s) or palpitations Review of Systems Const: Denies: fever(s), chills or fatigue Eyes: Denies: change in vision or eye discomfort ENMT: Denies: throat pain, odynophagia, nasal discharge or nasal congestion Card: Reports: lightheadedness and pre-syncope; Denies: chest pain, palpitations, edema, swelling of feet/ankles, dyspnea on exertion or orthopnea Resp: Denies: dyspnea, productive cough or non-productive cough GI: Reports: nausea and vomiting; Denies: abdominal pain, diarrhea, constipation or hematochezia : Denies: flank pain, dysuria or hematuria Musc: Denies: neck pain, back pain or extremity swelling Skin/Breast: Denies: rash or new lesions Neuro: Denies: headache(s), numbness in extremities, weakness in extremities or dizziness [facility] ED PFSH: Medical History Acute serous otitis media of left ear Anxiety Borderline intellectual functioning Controlled type 2 diabetes mellitus, without long-term current use of insulin Depression Dyslipidemia Enrolled in chronic care management Generalized anxiety disorder GERD (gastroesophageal reflux disease) Hypertension Hypothyroidism Obesity BHARAT (obstructive sleep apnea) Psychiatric care Seizure disorder Tinnitus Surgical History History of colonoscopy with polypectomy (~09/2018) History of esophagogastroduodenoscopy (EGD) (~09/2018) History of hysterectomy with oophorectomy History of laparoscopic cholecystectomy Family History Grandmother Cancer Father Lung disease Diabetes Denies family history of Anesthesia complication Bleeding disorder Social History Smoking and tobacco status: never smoked Quit status (tobacco): has quit using tobacco Second hand smoke exposure: No Smoking risk assessment/counseling performed?: No Alcohol intake: never Desire information about alcohol rehabilitation?: No Counseling given: No Desire information about substance/drug rehabilitation?: No Counseling given: No Adopted: No Caregiver/support person: Yes Lives independently: Yes Housing: House Marital status: Single Highest education level completed: High School Graduate service: No Current occupational status: employed 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 Current occupational exposures/hazards: No Pets and animals: Yes History of recent travel: No Sexually active: Yes Ania/Advent: None Special ania needs: No Agree to transfusion: Yes Financial difficulty paying for basics: Not Very Hard Physical Exam Const: COMMON NORMALS: no acute distress, patient oriented x3 and alert GENERAL APPEARANCE: cooperative and comfortable NUTRITIONAL APPEARANCE: obese HENMT: COMMON NORMALS: normocephalic HEAD & SCALP: normocephalic MOUTH: Normal oral and palatal mucosa present THROAT: posterior oropharynx normal and uvula midline Eye: COMMON NORMALS: Equal, round and reactive pupils present and conjunctivae normal CONJUNCTIVA: Yes conjunctivae normal PUPIL: Yes Equal, round and reactive pupils present Neck/C-Spine: COMMON NORMALS: supple GENERAL: Yes normal visual inspection Resp: COMMON NORMALS: normal respiratory effort, No retractions, No use of accessory muscles and clear to auscultation bilaterally AUSCULTATION: clear to auscultation bilaterally Cardio: COMMON NORMALS: regular rate, regular rhythm, S1 normal heart sound present, S2 normal heart sound present, No gallops present (Cardio), No clicks present (Cardio), No murmurs present (Cardio) and Peripheral pulses 2+ throughout RATE: regular rate RHYTHM: regular rhythm HEART SOUNDS: S1 normal heart sound present and S2 normal heart sound present PERIPHERAL PU LSES: Peripheral pulses 2+ throughout GI: COMMON NORMALS: Normal to inspection, nondistended, normoactive bowel sounds present, Soft to palpation, non-tender and no masses PALPATION: Yes Soft to palpation : COMMON NORMALS: Yes no CVA tenderness BLADDER/KIDNEY EXAM: Yes no CVA tenderness Back/Pelvis: COMMON NORMALS: no CVA tenderness Extremity: COMMON NORMALS: normal to inspection Neuro: COMMON NORMALS: patient oriented x3 and moves all extremities SENSORIUM/ORIENTATION: Yes alert Skin: GENERAL SKIN EXAM: dry skin Course Reevaluation(s): Reevaluation #1: Patient was given IV fluids and Zofran here in the ED and her nausea resolved and she had no more episodes of emesis here in the ED. Patient was stable and ready for discharge home. Time: 22:00 Vital Signs: Vital signs: Vital Signs Temperature 98.1 F 12/27/21 19:48 Pulse Rate 58 L 12/27/21 22:21 Respiratory Rate 16 12/27/21 22:21 Blood Pressure 132/88 12/27/21 22:21 Pulse Oximetry 100 12/27/21 22:21 MDM - Nausea/Vomiting/Diarrhea Medical Decision Making Patient is a 51-year-old female comes to the ED with an episode of nausea/vomiting, lightheadedness and near syncope. Patient has a history of gastric bypass and says she frequently has these episodes of nausea and vomiting after she eats certain foods. Vitals are stable. Exam was benign. Patient appears nontoxic and in no acute distress or pain. CBC, CMP, lipase and UA were all unremarkable. Troponin negative and EKG showed no acute findings. Patient was given IV fluids and Zofran and her nausea and vomiting improved. Patient diagnosed with nausea and vomiting. She was discharged home with a prescription for Zofran. She was told to follow-up with her PCP within the next week for reevaluation. Return to ED precautions given. Patient understood and agreed with plan. Lab Data I reviewed the patient's lab results. : 12/27/21 20:20 12/27/21 21:04 Laboratory Results WBC 7.1 10^3/uL (4.0-10.0) 12/27/21 20:20 RBC 4.89 10^6/uL (4.1-5.3) 12/27/21 20:20 Hgb 14.6 g/dL (11.5-15.3) 12/27/21 20:20 Hct 46.7 % (37.0-47.0) 12/27/21 20:20 MCV 95.5 fl (81-99) 12/27/21 20:20 MCH 29.9 pg (28.0-34.0) 12/27/21 20:20 MCHC 31.3 g/dL (30.0-36.0) 12/27/21 20:20 RDW 17.2 % (12.1-15.1) H 12/27/21 20:20 Plt Count 234 10^3/cmm (130-400) 12/27/21 20:20 MPV 9.5 fL (7.4-10.4) 12/27/21 20:20 Neut % (Auto) 62.5 % 12/27/21 20:20 Lymph % (Auto) 28.0 % 12/27/21 20:20 [place] % (Auto) 7.4 % 12/27/21 20:20 Eos % (Auto) 1.4 % 12/27/21 20:20 Baso % (Auto) 0.4 % 12/27/21 20:20 Neut # (Auto) 4.42 10^3/uL (1.8-7.7) 12/27/21 20:20 Lymph # (Auto) 2.0 10^3/uL (0.8-4.8) 12/27/21 20:20 [place] # (Auto) 0.5 10^3/uL (0.2-0.9) 12/27/21 20:20 Eos # (Auto) 0.1 10^3/uL (0.0-0.8) 12/27/21 20:20 Baso # (Auto) 0.0 10^3/uL (0.0-0.1) 12/27/21 20:20 Nucleated RBC % (auto) 0 % 12/27/21:20 Nucleated RBCs # 0.0 /100WBC 12/27/21 20:20 Sodium 139 mmol/L (136-145) 12/27/21 21:04 Potassium 4.1 mmol/L (3.5-5.1) 12/27/21 21:04 Chloride 107 mmol/L (98-107) 12/27/21 21:04 Carbon Dioxide 21 mmol/L (22-29) L 12/27/21 21:04 Anion Gap 15.1 (5-19) 12/27/21 21:04 BUN 14 mg/dL (6-20) 12/27/21 21:04 Creatinine 0.6 mg/dL (0.5-0.9) 12/27/21 21:04 GFR Calculation 106.3 mL/min (90-130) 12/27/21 21:04 Glucose 97 mg/dL (65-115) 12/27/21 21:04 Calculated Osmolality 288 mOsm/kg (285-295) 12/27/21 21:04 Calcium 9.4 mg/dL (8.5-10.5) 12/27/21 21:04 Total Bilirubin 0.2 mg/dL (0.15-1.2) 12/27/21 21:04 AST 22 U/L (0-32) 12/27/21 21:04 ALT 18 U/L (0-33) 12/27/21 21:04 Alkaline Phosphatase 78 IU/L (35-105) 12/27/21 21:04 Troponin T Gen 5 ng/L 6 ng/L (0-10) 12/27/21 21:04 Total Protein 7.5 g/dL (6.6-8.7) 12/27/21 21:04 Albumin 3.8 g/dL (3.5-5.2) 12/27/21 21:04 Globulin 3.7 g/dL (1.3-4.6) 12/27/21 21:04 Lipase 58 U/L (13-60) 12/27/21 21:04 Urine Color Yellow (Yellow) 12/27/21 20:30 Urine Appearance Clear (CLEAR) 12/27/21 20:30 Urine pH 5 (5-7) 12/27/21 20:30 Ur Specific [place] 1.020 (1.005-1.030) 12/27/21 20:30 Urine Protein Neg (Negative) 12/27/21 20:30 Urine Glucose (UA) Norm (Normal) 12/27/21 20:30 Urine Ketones Negative (Negative) 12/27/21 20:30 Urine Blood Neg (Negative) 12/27/21 20:30 Urine Nitrate Negative (Negative) 12/27/21 20:30 Urine Bilirubin Neg (Negative) 12/27/21 20:30 Urine Urobilinogen 1 mg/dL (Negative) H 12/27/21 20:30 Ur Leukocyte Esterase Negative (Negative) 12/27/21 20:30 EKG Data EKG 1: EKG interpretation date: 12/27/21 Interpretation: Normal sinus rhythm, bradycardic 57 bpm, no ST segment elevation or depression seen. Discharge Plan Discharge Patient Disposition: Home Clinical Impression: Nausea & vomiting Qualifiers: Vomiting type: unspecified Qualified Code(s): R11.2 - Nausea with vomiting, unspecified Condition: Stable Prescriptions: New ondansetron 4 mg tablet,disintegrating 4 mg PO Q8H PRN (Reason: nausea and vomiting) Qty: 20 0RF No Action montelukast [Singulair] 10 mg tablet 10 mg PO DAILY Qty: 90 1RF triamcinolone acetonide 0.1 % cream 1 applic topical TID Qty: 80 0RF citalopram [Celexa] 20 mg tablet 20 mg PO DAILY Qty: 30 2RF buspirone 15 mg tablet 15 mg PO BID Qty: 60 2RF cetirizine 10 mg tablet 10 mg PO DAILY Qty: 20 0RF cyclobenzaprine 7.5 mg tablet 7.5 mg PO TID PRN (Reason: muscle spasm) Qty: 14 0RF docusate sodium 100 mg capsule 100 mg PO PRN 0RF levothyroxine 100 mcg capsule 100 mcg PO DAILY 0RF tramadol 50 mg tablet 50 mg PO Q6H PRN (Reason: pain) Qty: 30 0RF nitrofurantoin monohyd/m-cryst [Macrobid] 100 mg capsule 100 mg PO Q12H 7 Days Qty: 14 0RF Rx Instructions: must administer with a meal/food (DME) lancets [Accu-Chek Softclix Lancets] Misc See Rx Instructions .ROUTE .MEDSUPPLY Qty: 50 0RF Rx Instructions: ONE DAILY (DME) blood-glucose meter [Accu-Chek Leeann Plus Meter] Misc See Rx Instructions .ROUTE .MEDSUPPLY Qty: 1 0RF Rx Instructions: ONE TIME DAILY (DME) GLUCOMETER Qty: 1 0RF Rx Instructions: USE ONCE DAILY (DME) lancets [Accu-Chek Fastclix Lancet Drum] Misc See Rx Instructions .ROUTE .MEDSUPPLY Qty: 50 0RF Rx Instructions: 1 daily (DME) lancing device with lancets [Accu-Chek Soft Dev Lancets] Kit See Rx Instructions .ROUTE .MEDSUPPLY Qty: 100 2RF Rx Instructions: once daily (DME) pen needle, diabetic [BD Ultra-Fine Short Pen Needle] 31 gauge x 5/16 needle See Rx Instructions .ROUTE .MEDSUPPLY Qty: 100 2RF Rx Instructions: once daily simvastatin 20 mg tablet 20 mg PO DAILY Qty: 30 5RF pantoprazole [Protonix] 40 mg tablet,delayed release (DR/EC) 40 mg PO BID Qty: 180 0RF (DME) Accu-Chek Leeann Plus test strp Strip See Rx Instructions .ROUTE .MEDSUPPLY Qty: 100 1RF Rx Instructions: ONE TIME DAILY liothyronine 5 mcg tablet 5 mcg PO DAILY 0RF paroxetine HCl 20 mg tablet 20 mg PO DAILY 0RF acetaminophen [Tylenol Extra Strength] 500 mg Tablet 1,000 mg PO PRN 0RF Jardiance 10 mg Tablet 10 mg PO DAILY 0RF Reglan 10 mg tablet 10 mg PO Q6H PRN (Reason: nausea and vomiting) Qty: 20 0RF mupirocin 2 % ointment 1 applic TOPICAL BID Qty: 22 0RF Desitin Rapid Relief 13 % cream 1 applic topical TID PRN (Reason: skin irritation) Qty: 454 0RF dicyclomine 20 mg tablet 20 mg PO QID Qty: 20 0RF triamcinolone acetonide 0.1 % cream 1 applic topical BID PRN (Reason: puritic rash) Qty: 453.6 0RF Discharge Orders: Discharge ED (Routine); Ordered 12/27/21 Ordered By: Khris Craig Discharge Diet: Advance as tolerated and Clear Liquid Discharge Activity: Increase activity as tolerated Activity Restrictions/Additional Instructions: Follow-up with medical provider as directed in 5 to 7 days for reevaluation. Take medications as prescribed. Make sure you drink plenty of fluids and stay hydrated. Return to the ER or your medical provider if condition worsens. Please read and understand discharge instructions. Thank you for choosing [facility] for your healthcare needs today. Ple ase realize this is an emergency room and that we are providing you with a medical screening exam and this may not be complete and all inclusive of all the testing and or work up that you may need to determine your ailment or severity of your illness. It is very important that you follow up as instructed or that you return to the Emergency Department should you have concerns or if your condition changes or worsens in any way. Coding Level of Care Code ED Glazier Supervisor for Robyn Ruiz Exam Comprehensive
[2021-12-27] MEDS: sodium chloride 0.9% 500 ML 999 ML IV (20:33)
[2021-12-27] MEDS: ondansetron 2 mg/ML SDV 2 mL 4 MG IVP (20:33)
[2021-12-27 20:38] LABS: Basophils % 0.4 %; Eosinophils # 0.1 10^3/uL (0.0-0.8); Eosinophils % 1.4 %; Hematocrit 46.7 % (37.0-47.0); Hemoglobin 14.6 g/dL (11.5-15.3); Mean Corpuscular HGB Conc 31.3 g/dL (30.0-36.0); Mean Corpuscular Hemoglobin 29.9 pg (28.0-34.0); Mean Corpuscular Volume 95.5 fl (81-99); Mean Platelet Volume 9.5 fL (7.4-10.4); Monocytes # 0.5 10^3/uL (0.2-0.9); Monocytes % 7.4 %; Neutrophils # 4.42 10^3/uL (1.8-7.7); Neutrophils % 62.5 %; Nucleated Red Blood Cells % 0 %; Platelet Count 234 10^3/cmm (130-400); Red Blood Count 4.89 10^6/uL (4.1-5.3); Red Cell Distribution Width 17.2 % (12.1-15.1); White Blood Count 7.1 10^3/uL (4.0-10.0)
[2021-12-27 20:58] LABS: Add Urine Microscopic? NO; Charge for UA Resulting for Rev
[2021-12-27 21:00] VITALS: BP 140/92; PULSE 58; RESP 18; O2SAT 97
[2021-12-27 21:03] LABS: Urine Appearance Clear (CLEAR); Urine Color Yellow (Yellow)
[2021-12-27 21:04] LABS: Bilirubin Urine Neg (Negative); Blood Urine Neg (Negative); Glucose Urine UA Norm (Normal); Ketones Urine Negative (Negative); Leukocyte Esterase Urine Negative (Negative); Nitrate Urine Negative (Negative); Protein Urine Neg (Negative); Urobilinogen Urine 1 mg/dL (Negative); pH Urine 5 (5-7)
[2021-12-27 21:35] LABS: Troponin T (5th) Once 6 ng/L (0-10)
[2021-12-27 21:39] LABS: Alanine Aminotransferase 18 U/L (0-33); Albumin Level 3.8 g/dL (3.5-5.2); Alkaline Phosphatase 78 IU/L (35-105); Blood Urea Nitrogen 14 mg/dL (6-20); Calcium 9.4 mg/dL (8.5-10.5); Carbon Dioxide 21 mmol/L (22-29); Chloride 107 mmol/L (98-107); Globulin 3.7 g/dL (1.3-4.6); Glomerular Filtration Rate 106.3 mL/min (90-130); Glucose 97 mg/dL (65-115); Lipase 58 U/L (13-60); Osmolality Calculated 288 mOsm/kg (285-295); Sodium 139 mmol/L (136-145); Total Bilirubin 0.2 mg/dL (0.15-1.2); Total Protein 7.5 g/dL (6.6-8.7)
[2021-12-27 21:45] LABS: Anion Gap 15.1 (5-19); Aspartate Amino Transferase 22 U/L (0-32); Potassium 4.1 mmol/L (3.5-5.1)
[2021-12-27 22:21] VITALS: BP 132/88; PULSE 58; RESP 16; O2SAT 100
== END 2021-12-27 22:22 | disposition home or self-care (01) ==
PROVIDERS: Emergency Provider Physician Assistant
DX: R11.2 Nausea with vomiting, unspecified (principal); E11.9 Type 2 diabetes mellitus without complications; E78.5 Hyperlipidemia, unspecified; I10 Essential (primary) hypertension; Z87.891 Personal history of nicotine dependence
CPT/HCPCS: 36415; 80053; 81003; 83690; 84484; 85025; 96374; 99283; J2405; J7040

== ENCOUNTER 2022-01-09 20:02 | Emergency (ER) | payer MEDICARE, MEDICAID, SELFPAY ==
[2022-01-09 20:14] VITALS: PULSE 70; RESP 16; TEMP 36.6; O2SAT 99; BMI 41.3
--- NOTE | 2022-01-09 20:51 | PC.NURSE ---
Hemoccult performed in triage with negative result.
[2022-01-09 21:27] LABS: Basophils % 0.4 %; Eosinophils # 0.1 10^3/uL (0.0-0.8); Eosinophils % 1.3 %; Hematocrit 42.5 % (37.0-47.0); Hemoglobin 14.1 g/dL (11.5-15.3); Lymphocytes % 26.4 %; Mean Corpuscular HGB Conc 33.2 g/dL (30.0-36.0); Mean Corpuscular Hemoglobin 29.7 pg (28.0-34.0); Mean Corpuscular Volume 89.7 fl (81-99); Mean Platelet Volume 9.1 fL (7.4-10.4); Monocytes # 0.5 10^3/uL (0.2-0.9); Monocytes % 6.6 %; Neutrophils # 4.86 10^3/uL (1.8-7.7); Neutrophils % 65.2 %; Nucleated Red Blood Cells % 0 %; Platelet Count 231 10^3/cmm (130-400); Red Blood Count 4.74 10^6/uL (4.1-5.3); Red Cell Distribution Width 12.5 % (12.1-15.1); White Blood Count 7.5 10^3/uL (4.0-10.0)
[2022-01-09 21:54] LABS: Alanine Aminotransferase 14 U/L (0-33); Alkaline Phosphatase 79 IU/L (35-105); Anion Gap 12.6 (5-19); Aspartate Amino Transferase 21 U/L (0-32); Blood Urea Nitrogen 18 mg/dL (6-20); Calcium 8.6 mg/dL (8.5-10.5); Carbon Dioxide 25 mmol/L (22-29); Chloride 105 mmol/L (98-107); Globulin 3.1 g/dL (1.3-4.6); Glomerular Filtration Rate 76.2 mL/min (90-130); Glucose 107 mg/dL (65-115); Osmolality Calculated 290 mOsm/kg (285-295); Potassium 3.6 mmol/L (3.5-5.1); Sodium 139 mmol/L (136-145); Total Bilirubin 0.4 mg/dL (0.15-1.2); Total Protein 7.1 g/dL (6.6-8.7)
--- NOTE | 2022-01-09 21:54 | ED_ITS ---
HPI - Nausea/Vomiting/Diarrhea General: Chief complaint: Nausea/Vomiting/Diarrhea Stated complaint: Black Bowel Movement Time Seen by Provider: 01/09/22 21:53 History of Present Illness: 51-year-old female comes in today for complaints of dark stools and concern for bloody stools. Patient is alert and oriented. Patient appears well. Patient appears in no pain. Patient has a history of diabetes, hypothyroidism, depression, GERD, osteoarthritis. Patient reports today she was out at the store and said he had a sudden urge to poop and ran to the bathroom and was not able to control her bowels. Patient noticed a large amount of black stool when she had a bowel movement. Associated symtoms: Reports fecal incontinence Review of Systems General: Reports: 10 or more systems reviewed and unremarkable except in HPI and below GI: Reports: abdominal pain, fecal incontinence and change in stool character PFSH ED PFSH: Medical History Acute serous otitis media of left ear Anxiety Borderline intellectual functioning Controlled type 2 diabetes mellitus, without long-term current use of insulin Depression Dyslipidemia Enrolled in chronic care management Generalized anxiety disorder GERD (gastroesophageal reflux disease) Hypertension Hypothyroidism Obesity BHARAT (obstructive sleep apnea) Psychiatric care Seizure disorder Tinnitus Surgical History History of colonoscopy with polypectomy (~09/2018) History of esophagogastroduodenoscopy (EGD) (~09/2018) History of hysterectomy with oophorectomy History of laparoscopic cholecystectomy Family History Grandmother Cancer Father Lung disease Diabetes Denies family history of Anesthesia complication Bleeding disorder Social History Smoking and tobacco status: never smoked Quit status (tobacco): has quit using tobacco Second hand smoke exposure: No Smoking risk assessment/counseling performed?: No Alcohol intake: never Desire information about alcohol rehabilitation?: No Counseling given: No Desire information about substance/drug rehabilitation?: No Counseling given: No Adopted: No Caregiver/support person: Yes Lives independently: Yes Housing: House Marital status: Single Highest education level completed: High School Graduate service: No Current occupational status: employed 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 Current occupational exposures/hazards: No Pets and animals: Yes History of recent travel: No Sexually active: Yes Ania/Nondenominational: None Special ania needs: No Agree to transfusion: Yes Financial difficulty paying for basics: Not Very Hard Physical Exam Const: COMMON NORMALS: alert HENMT: COMMON NORMALS: atraumatic HEAD & SCALP: atraumatic Neck/C-Spine: COMMON NORMALS: full ROM Resp: COMMON NORMALS: normal respiratory effort and clear to auscultation bilaterally AUSCULTATION: clear to auscultation bilaterally Cardio: COMMON NORMALS: regular rate RATE: regular rate GI: COMMON NORMALS: Soft to palpation PALPATION: Yes Soft to palpation and Yes Tenderness to palpation present (GI) Details: LLQ : COMMON NORMALS: Yes no CVA tenderness BLADDER/KIDNEY EXAM: Yes no CVA tenderness Back/Pelvis: COMMON NORMALS: no CVA tenderness Extremity: COMMON NORMALS: full ROM and no pedal edema Neuro: SENSORIUM/ORIENTATION: Yes alert Psych: COMMON NORMALS: cooperative Skin: RASHES: rashes noted (Generalized petechial rash) Course Vital Signs: Vital signs: Vital Signs Temperature 97.5 F L 01/09/22 22:02 Pulse Rate 60 01/09/22 22:02 Respiratory Rate 16 01/09/22 20:14 Blood Pressure 134/94 01/09/22 22:02 Pulse Oximetry 100 01/09/22 22:02 MDM - Nausea/Vomiting/Diarrhea Medical Decision Making 51-year-old female comes in today with complaints of change in stool and abdominal discomfort. On exam abdomen soft nontender and patient has some left lower quadrant abdominal tenderness. Vital signs are normal. Also note petechial to find purpuric rash to the skin generalized. Lesions range from 1 to 2 mm. Lesions extend to the palms of the hand and feet. Differential diagnosis includes not limited to HSP, small vessel vasculitis, leukocytoclastic vasculitis, diverticulitis. CBC and CMP were unremarkable. Patient may have a mild case of diverticulitis but her white counts normal and I do not see a need for antibiotics at this time. 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 Laboratory values were normal without any signs of significant blood loss or renal dysfunction. Patient needs follow-up with dermatology or other specialist for further evaluation of the vasculitis. Patient reported that she has had the rash for about 2 to 3 months. I did consider putting patient on a steroid burst but it may also be due to some of the medication that she is on causing the vasculitis so I will defer it for further evaluation at this time. Lab Data : 01/09/22 21:15 01/09/22 21:15 Laboratory Results WBC 7.5 10^3/uL (4.0-10.0) 01/09/22 21:15 RBC 4.74 10^6/uL (4.1-5.3) 01/09/22 21:15 Hgb 14.1 g/dL (11.5-15.3) 01/09/22 21:15 Hct 42.5 % (37.0-47.0) 01/09/22 21:15 MCV 89.7 fl (81-99) 01/09/22 21:15 MCH 29.7 pg (28.0-34.0) 01/09/22 21:15 MCHC 33.2 g/dL (30.0-36.0) 01/09/22 21:15 RDW 12.5 % (12.1-15.1) 01/09/22 21:15 Plt Count 231 10^3/cmm (130-400) 01/09/22 21:15 MPV 9.1 fL (7.4-10.4) 01/09/22 21:15 Neut % (Auto) 65.2 % 01/09/22 21:15 Lymph % (Auto) 26.4 % 01/09/22 21:15 [place] % (Auto) 6.6 % 01/09/22 21:15 Eos % (Auto) 1.3 % 01/09/22 21:15 Baso % (Auto) 0.4 % 01/09/22 21:15 Neut # (Auto) 4.86 10^3/uL (1.8-7.7) 01/09/22 21:15 Lymph # (Auto) 2.0 10^3/uL (0.8-4.8) 01/09/22 21:15 [place] # (Auto) 0.5 10^3/uL (0.2-0.9) 01/09/22 21:15 Eos # (Auto) 0.1 10^3/uL (0.0-0.8) 01/09/22 21:15 Baso # (Auto) 0.0 10^3/uL (0.0-0.1) 01/09/22 21:15 Nucleated RBC % (auto) 0 % 01/09/22 21:15 Nucleated RBCs # 0.0 /100WBC 01/09/22 21:15 Sodium 139 mmol/L (136-145) 01/09/22 21:15 Potassium 3.6 mmol/L (3.5-5.1) 01/09/22 21:15 Chloride 105 mmol/L (98-107) 01/09/22 21:15 Carbon Dioxide 25 mmol/L (22-29) 01/09/22 21:15 Anion Gap 12.6 (5-19) 01/09/22 21:15 BUN 18 mg/dL (6-20) 01/09/22 21:15 Creatinine 0.8 mg/dL (0.5-0.9) 01/09/22 21:15 GFR Calculation 76.2 mL/min (90-130) L 01/09/22 21:15 Glucose 107 mg/dL (65-115) 01/09/22 21:15 Calculated Osmolality 290 mOsm/kg (285-295) 01/09/22 21:15 Calcium 8.6 mg/dL (8.5-10.5) 01/09/22 21:15 Total Bilirubin 0.4 mg/dL (0.15-1.2) 01/09/22 21:15 AST 21 U/L (0-32) 01/09/22 21:15 ALT 14 U/L (0-33) 01/09/22 21:15 Alkaline Phosphatase 79 IU/L (35-105) 01/09/22 21:15 Total Protein 7.1 g/dL (6.6-8.7) 01/09/22 21:15 Albumin 4.0 g/dL (3.5-5.2) 01/09/22 21:15 Globulin 3.1 g/dL (1.3-4.6) 01/09/22 21:15 Discharge Plan Discharge Patient Disposition: Home Clinical Impression: Small vessel vasculitis Condition: Stable Prescriptions: No Action montelukast [Singulair] 10 mg tablet 10 mg PO DAILY Qty: 90 1RF triamcinolone acetonide 0.1 % cream 1 applic topical TID Qty: 80 0RF citalopram [Celexa] 20 mg tablet 20 mg PO DAILY Qty: 30 2RF buspirone 15 mg tablet 15 mg PO BID Qty: 60 2RF cetirizine 10 mg tablet 10 mg PO DAILY Qty: 20 0RF cyclobenzaprine 7.5 mg tablet 7.5 mg PO TID PRN (Reason: muscle spasm) Qty: 14 0RF docusate sodium 100 mg capsule 100 mg PO PRN 0RF levothyroxine 100 mcg capsule 100 mcg PO DAILY 0RF tramadol 50 mg tablet 50 mg PO Q6H PRN (Reason: pain) Qty: 30 0RF nitrofurantoin monohyd/m-cryst [Macrobid] 100 mg capsule 100 mg PO Q12H 7 Days Qty: 14 0RF Rx Instructions: must administer with a meal/food (DME) lancets [Accu-Chek Softclix Lancets] Misc See Rx Instructions .ROUTE .MEDSUPPLY Qty: 50 0RF Rx Instructions: ONE DAILY (DME) blood-glucose meter [Accu-Chek Leeann Plus Meter] Misc See Rx Instructions .ROUTE .MEDSUPPLY Qty: 1 0RF Rx Instructions: ONE TIME DAILY (DME) GLUCOMETER Qty: 1 0RF Rx Instructions: USE ONCE DAILY (DME) lancets [Accu-Chek Fastclix Lancet Drum] Misc See Rx Instructions .ROUTE .MEDSUPPLY Qty: 50 0RF Rx Instructions: 1 daily (DME) lancing device with lancets [Accu-Chek Soft Dev Lancets] Kit See Rx Instructions .ROUTE .MEDSUPPLY Qty: 100 2RF Rx Instructions: once daily (DME) pen needle, diabetic [BD Ultra-Fine Short Pen Needle] 31 gauge x 5/16 needle See Rx Instructions .ROUTE .MEDSUPPLY Qty: 100 2RF Rx Instructions: once daily simvastatin 20 mg tablet 20 mg PO DAILY Qty: 30 5RF pantoprazole [Protonix] 40 mg tablet,delayed release (DR/EC) 40 mg PO BID Qty: 180 0RF (DME) Accu-Chek Leeann Plus test strp Strip See Rx Instructions .ROUTE .MEDSUPPLY Qty: 100 1RF Rx Instructions: ONE TIME DAILY liothyronine 5 mcg tablet 5 mcg PO DAILY 0RF paroxetine HCl 20 mg tablet 20 mg PO DAILY 0RF acetaminophen [Tylenol Extra Strength] 500 mg Tablet 1,000 mg PO PRN 0RF Jardiance 10 mg Tablet 10 mg PO DAILY 0RF Reglan 10 mg tablet 10 mg PO Q6H PRN (Reason: nausea and vomiting) Qty: 20 0RF mupirocin 2 % ointment 1 applic TOPICAL BID Qty: 22 0RF Desitin Rapid Relief 13 % cream 1 applic topical TID PRN (Reason: skin irritation) Qty: 454 0RF dicyclomine 20 mg tablet 20 mg PO QID Qty: 20 0RF triamcinolone acetonide 0.1 % cream 1 applic topical BID PRN (Reason: puritic rash) Qty: 453.6 0RF ondansetron 4 mg tablet,disintegrating 4 mg PO Q8H PRN (Reason: nausea and vomiting) Qty: 20 0RF Discharge Orders: Discharge ED (Routine); Ordered 01/09/22 Ordered By: Ash Burton Discharge Diet: Usual diet Discharge Activity: Increase activity as tolerated Patient Instructions: [place] (ED) Activity Restrictions/Additional Instructions: Home and rest. Drink plenty of water. Continue with routine medications. Follow-up with primary care. Case management will contact you regarding an appointment with dermatology for further evaluation and treatment. Return to ER for new concerns. Coding Level of Care Code ED Field Sales Trainer for Robyn Ruiz
[2022-01-09 22:02] VITALS: BP 134/94; PULSE 60; TEMP 36.4; O2SAT 100
[2022-01-09 22:30] VITALS: BP 134/96; PULSE 66; O2SAT 100
--- NOTE | 2022-01-10 12:47 | DCPLANNER ---
Addendum entered by Katia Alarcon 02/07/22 08:32: Patient had a follow up appointment scheduled for 01.15.[address] Arauz at Dermatology - patient did attend appointment. Addendum entered by Katia Alarcon 01/11/22 13:35: Patient has a follow up appointment scheduled for Saturday, January 15, 2022 at 9:[address] Arauz. Clinic will call patient with appointment information. Original Note: product communications manager had message to schedule a follow up appointment for patient with dermatology. product communications manager called dermatology, spoke with Yelena, gave clinic patients information. product communications manager was told that patients information would be printed and reviewed. Clinic will call patient with appointment information.
== END 2022-01-09 22:31 | disposition home or self-care (01) ==
PROVIDERS: Emergency Medicine; Emergency Provider Nurse Practitioner Family
DX: R19.5 Other fecal abnormalities (principal); I77.6 Arteritis, unspecified; E11.9 Type 2 diabetes mellitus without complications; E78.5 Hyperlipidemia, unspecified; I10 Essential (primary) hypertension; Z87.891 Personal history of nicotine dependence
CPT/HCPCS: 80053; 85025; 99282

== ENCOUNTER 2022-01-11 16:43 | Emergency (ER) | payer MEDICARE, MEDICAID, SELFPAY ==
[2022-01-11 16:58] VITALS: BP 140/88; PULSE 70; RESP 16; TEMP 36.4; O2SAT 100; BMI 41.3
--- NOTE | 2022-01-11 17:30 | ED_ITS ---
HPI - Abdominal Pain General: Chief Complaint: Abdominal Pain Stated Complaint: Cutaneous Vasculitis Severe ABD pain aft eating Time Seen by Provider: 01/11/22 17:30 History of Present Illness: Ms. Trujillo is a 51-year-old lady with complex past medical history with hypertension, hyperlipidemia, diabetes, history of abdominal pain, and recent history of unclear skin condition possible cutaneous vasculitis who presents emergency department due to abdominal pain. She reports sitting on her couch eating corn on the cob at lunch when she started having generalized abdominal pain. She has had cramping in quality pain that is moderate to severe in intensity and intermittent. She denies associated nausea, vomiting, or diarrhea. She is primarily concerned that this is her vasculitis spreading to her internal organs. Overall course of symptoms has persisted. She has had similar episodes in the past. No other specific changes in health, exacerbating, or relieving factors identified since previous ER visit. Onset (ago): hour(s) Pain Consistency: constant Severity: severe Associated Symptoms: Reports diarrhea, nausea and vomiting Review of Systems General: Reports: 10 or more systems reviewed and unremarkable except in HPI and below GI: Reports: nausea, vomiting and diarrhea PFSH ED PFSH: Medical History Acute serous otitis media of left ear Anxiety Borderline intellectual functioning Controlled type 2 diabetes mellitus, without long-term current use of insulin Depression Dyslipidemia Enrolled in chronic care management Generalized anxiety disorder GERD (gastroesophageal reflux disease) Hypertension Hypothyroidism Obesity BHARAT (obstructive sleep apnea) Psychiatric care Seizure disorder Tinnitus Surgical History History of colonoscopy with polypectomy (~09/2018) History of esophagogastroduodenoscopy (EGD) (~09/2018) History of gastric bypass 2020- - History of hysterectomy with oophorectomy History of laparoscopic cholecystectomy Family History Grandmother Cancer Father Lung disease Diabetes Denies family history of Anesthesia complication Bleeding disorder Social History Smoking and tobacco status: never smoked Quit status (tobacco): has quit using tobacco Second hand smoke exposure: No Smoking risk assessment/counseling performed?: No Alcohol intake: never Desire information about alcohol rehabilitation?: No Counseling given: No Desire information about substance/drug rehabilitation?: No Counseling given: No Adopted: No Caregiver/support person: Yes Lives independently: Yes Housing: House Marital status: Single Highest education level completed: High School Graduate service: No Current occupational status: employed 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 Current occupational exposures/hazards: No Pets and animals: Yes History of recent travel: No Sexually active: Yes Ania/Evangelical: None Special ania needs: No Agree to transfusion: Yes Financial difficulty paying for basics: Not Very Hard Physical Exam Const: COMMON NORMALS: alert GENERAL APPEARANCE: cooperative, well developed and in distress (pain) NUTRITIONAL APPEARANCE: obese HENMT: COMMON NORMALS: normocephalic and atraumatic HEAD & SCALP: normocephalic and atraumatic THROAT: posterior oropharynx normal Eye: COMMON NORMALS: conjunctivae normal CONJUNCTIVA: Yes conjunctivae normal SCLERA: sclerae normal Neck/C-Spine: COMMON NORMALS: supple GENERAL: Yes trachea midline Resp: COMMON NORMALS: clear to auscultation bilaterally EFFORT & INSPECTION: Yes able to speak in complete sentences AUSCULTATION: clear to auscultation bilaterally Cardio: COMMON NORMALS: regular rate and regular rhythm RATE: regular rate RHYTHM: regular rhythm GI: COMMON NORMALS: Soft to palpation PALPATION: Yes Soft to palpation, Yes Tenderness to palpation present (GI), No Guarding due to palpation present (GI) and No Rigid due to palpation PERCUSSION: normal to percussion Extremity: GENERAL: Yes normal exam except as noted and No edema Neuro: COMMON NORMALS: moves all extremities SENSORIUM/ORIENTATION: Yes lizzy rt and No Orientation impaired Psych: COMMON NORMALS: mental status grossly normal and Normal thought process present THOUGHT PROCESS: Normal thought process present Course ED course: - Patient was seen and evaluated by me at bedside - Patient placed on cardiac monitors, IV access obtained - Initial evaluation notable for exam as above - Bentyl and Zofran ordered - Labs notable for no leukocytosis. Metabolic panel without acute derangement to explain patient's symptoms. Urinalysis not concerning for urinary tract infection in the context of squamous epithelial contamination. - Imaging notable for mildly high preoperative loops of small bowel which appear mildly thickened with possibility of nonspecific enteritis. - Upon serial reexamination after treatment the patient was improved. - Based on patient history, evaluation, labs, and imaging as interpreted the most likely cause of the patient's condition is enteritis. Given reported history of blood in stool and severity of symptoms I will treat with antibiotics. - The results of ED evaluation were discussed with the patient including prescriptions and/or symptomatic cares (if applicable) including appropriate and responsible use, followup plan, and return precautions. The patient verbalized understanding and felt safe for discharge. - Patient discharged in satisfactory condition. Note: Click bubbles or prepopulated hall in note writing are used for assistance with data collection and billing and are inherently more limited than narrative and other text portions of this note. Please use narrative for additional clinical history and defer to narrative/free test for any case of contradictory information. If information appears in only free text or click bubble it should be considered present or absent as reported. Please contact note insurance underwriter for clarifications of clinical information or contradictory information. MDM is a brief summary, contradictory or erroneous seeming information should be clarified and full note should be reviewed. Vital Signs: Vital signs: Vital Signs Temperature 97.5 F L 01/11/22 16:58 Pulse Rate 54 L 01/11/22 20:48 Respiratory Rate 18 01/11/22 20:48 Blood Pressure 181/98 01/11/22 20:48 Pulse Oximetry 97 01/11/22 20:48 MDM - Abdominal Pain Medical Decision Making 51-year-old lady with complex past medical history presenting to the emergency department due to abdominal pain. Laboratory studies unremarkable. CT imaging notable for possible enteritis. Patient does report blood in stool number of days ago. Will be treated with antibiotics for possible bacterial enteritis. Medical Records I reviewed the patient's medical records. Lab Data I reviewed the patient's lab results. : 01/11/22 18:41 01/11/22 18:41 Labs/Radiology: Radiology Impressions Abdomen/Pelvis CT 01/11/22 17:56 IMPRESSION: 1. Nondilated, fluid-filled, mildly hyperemic loops of small bowel, some of which appear mildly thickened. Query mild nonspecific enteritis. 2. Additional findings, as above. Laboratory Results WBC 6.9 10^3/uL (4.0-10.0) 01/11/22 18:41 RBC 4.94 10^6/uL (4.1-5.3) 01/11/22 18:41 Hgb 14.8 g/dL (11.5-15.3) 01/11/22 18:41 Hct 44.7 % (37.0-47.0) 01/11/22 18: MCV 90.5 fl (81-99) 01/11/22 18: MCH 30.0 pg (28.0-34.0) 01/11/22 18: MCHC 33.1 g/dL (30.0-36.0) 01/11/22 18: RDW 12.7 % (12.1-15.1) 01/11/22 18:41 Plt Count 244 10^3/cmm (130-400) 01/11/22 18:41 MPV 9.4 fL (7.4-10.4) 01/11/22 18:41 Neut % (Auto) 64.1 % 01/11/22 18: Lymph % (Auto) 26.5 % 01/11/22 18: [place] % (Auto) 6.4 % 01/11/22 18: Eos % (Auto) 1.9 % 01/11/22 18: Baso % (Auto) 0.7 % 01/11/22 18: Neut # (Auto) 4.39 10^3/uL (1.8-7.7) 01/11/22 18:41 Lymph # (Auto) 1.8 10^3/uL (0.8-4.8) 01/11/22 18:41 [place] # (Auto) 0.4 10^3/uL (0.2-0.9) 01/11/22 18: Eos # (Auto) 0.1 10^3/uL (0.0-0.8) 01/11/22 18:41 Baso # (Auto) 0.1 10^3/uL (0.0-0.1) 01/11/22 18: Nucleated RBC % (auto) 0 % 01/11/22 18: Nucleated RBCs # 0.0 /100WBC 01/11/22 18: Sodium 141 mmol/L (136-145) 01/11/22 18: Potassium 3.7 mmol/L (3.5-5.1) 01/11/22 18: Chloride 106 mmol/L (98-107) 01/11/22 18:41 Carbon Dioxide 25 mmol/L (22-29) 01/11/22 18:41 Anion Gap 13.7 (5-19) 01/11/22 18:41 BUN 12 mg/dL (6-20) 01/11/22 18:41 Creatinine 0.7 mg/dL (0.5-0.9) 01/11/22 18:41 GFR Calculation 88.9 mL/min (90-130) L 01/11/22 18:41 Glucose 94 mg/dL (65-115) 01/11/22 18:41 Calculated Osmolality 292 mOsm/kg (285-295) 01/11/22 18:41 Calcium 9.8 mg/dL (8.5-10.5) 01/11/22 18:41 Total Bilirubin 0.3 mg/dL (0.15-1.2) 01/11/22 18:41 AST 20 U/L (0-32) 01/11/22 18:41 ALT 18 U/L (0-33) 01/11/22 18:41 Alkaline Phosphatase 90 IU/L (35-105) 01/11/22 18:41 Total Protein 8.1 g/dL (6.6-8.7) 01/11/22 18:41 Albumin 4.3 g/dL (3.5-5.2) 01/11/22 18:41 Globulin 3.8 g/dL (1.3-4.6) 01/11/22 18:41 Lipase 42 U/L (13-60) 01/11/22 18:41 HCG, Qual Negative (Negative) 01/11/22 19:55 Urine Color Yellow (Yellow) 01/11/22 19:55 Urine Appearance Sl cloudy (CLEAR) A 01/11/22 19:55 Urine pH 5 (5-7) 01/11/22 19:55 Ur Specific [place] 1.005 (1.005-1.030) 01/11/22 19:55 Urine Protein Neg (Negative) 01/11/22 19:55 Urine Glucose (UA) Norm (Normal) 01/11/22 19:55 Urine Ketones Negative (Negative) 01/11/22 19:55 Urine Blood 2+ (Negative) H 01/11/22 19:55 Urine Nitrate Negative (Negative) 01/11/22 19:55 Urine Bilirubin Neg (Negative) 01/11/22 19:55 Urine Urobilinogen Norm mg/dL (Negative) 01/11/22 19:55 Ur Leukocyte Esterase 1+ (Negative) H 01/11/22 19:55 Urine RBC 10-15 /hpf (0-2) H 01/11/22 19:55 Urine WBC 5-10 /hpf (0-5) H 01/11/22 19:55 Ur Squamous Epith Cells 25-40 /hpf (0-5) H 01/11/22 19:55 Amorphous Sediment Not Reportable 01/11/22 19:55 Urine Bacteria 2+ /hpf (NONE) H 01/11/22 19:55 Discharge Plan Discharge Patient Disposition: Home Clinical Impression: Abdominal pain, Enteritis Condition: Stable Prescriptions: No Action montelukast [Singulair] 10 mg tablet 10 mg PO DAILY Qty: 90 1RF citalopram [Celexa] 20 mg tablet 20 mg PO DAILY Qty: 30 2RF buspirone 15 mg tablet 15 mg PO BID Qty: 60 2RF cetirizine 10 mg tablet 10 mg PO DAILY Qty: 20 0RF cyclobenzaprine 7.5 mg tablet 7.5 mg PO TID PRN (Reason: muscle spasm) Qty: 14 0RF docusate sodium 100 mg capsule 100 mg PO PRN 0RF levothyroxine 100 mcg capsule 100 mcg PO DAILY 0RF permethrin 5 % cream 1 applic topical .q 7 days Qty: 60 1RF Rx Instructions: Apply from neck down to feet. Leave on overnight and rinse in the morning. Repeat in 1 week (DME) lancets [Accu-Chek Softclix Lancets] Misc See Rx Instructions .ROUTE .MEDSUPPLY Qty: 50 0RF Rx Instructions: ONE DAILY (DME) blood-glucose meter [Accu-Chek Leeann Plus Meter] Misc See Rx Instructions .ROUTE .MEDSUPPLY Qty: 1 0RF Rx Instructions: ONE TIME DAILY (DME) GLUCOMETER Qty: 1 0RF Rx Instructions: USE ONCE DAILY (DME) lancets [Accu-Chek Fastclix Lancet Drum] Misc See Rx Instructions .ROUTE .MEDSUPPLY Qty: 50 0RF Rx Instructions: 1 daily (DME) lancing device with lancets [Accu-Chek Soft Dev Lancets] Kit See Rx Instructions .ROUTE .MEDSUPPLY Qty: 100 2RF Rx Instructions: once daily (DME) pen needle, diabetic [BD Ultra-Fine Short Pen Needle] 31 gauge x 5/16 needle See Rx Instructions .ROUTE .MEDSUPPLY Qty: 100 2RF Rx Instructions: once daily simvastatin 20 mg tablet 20 mg PO DAILY Qty: 30 5RF (DME) Accu-Chek Leeann Plus test strp Strip See Rx Instructions .ROUTE .MEDSUPPLY Qty: 100 1RF Rx Instructions: ONE TIME DAILY liothyronine 5 mcg tablet 5 mcg PO DAILY 0RF paroxetine HCl 20 mg tablet 20 mg PO DAILY 0RF acetaminophen [Tylenol Extra Strength] 500 mg Tablet 1,000 mg PO PRN 0RF dicyclomine 20 mg tablet 20 mg PO QID Qty: 20 0RF ondansetron 4 mg tablet,disintegrating 4 mg PO Q8H PRN (Reason: nausea and vomiting) Qty: 20 0RF Discharge Orders: Discharge ED (Routine); Ordered 01/11/22 Ordered By: Solis Francois Discharge Diet: Advance as tolerated and Clear Liquid Discharge Activity: Resume usual activity Patient Instructions: Ciprofloxacin (By mouth), Abdominal Pain (ED), Enteritis (ED) Activity Restrictions/Additional Instructions: Thank you for visiting the emergency department. You were seen and evaluated for abdominal pain. The exact cause of your symptoms is unclear, you were found to have enteritis on your CT scan which is inflammation or infection of the small intestine. Given duration of symptoms and your history of blood in stool you will be treated with a course of antibiotics. Please follow-up with your primary care provider or another care providers. Please return to the emergency department for uncontrolled symptoms, inability to tolerate oral intake, or anything else that you are concerned about a feel needs emergency department evaluation. Coding Level of Care Code ED Kiln Furniture Caster for Robyn Ruiz
--- NOTE | 2022-01-11 17:56 | CTR_ITS ---
PROCEDURE INFORMATION: Exam: CT Abdomen And Pelvis With Contrast Exam date and time: 01/11/2022 5:56 PM Age: 51 years old Clinical indication: Abdominal tenderness; Prior surgery; Surgery date: 6+ months; Surgery type: Gb; Patient HX: Abd pain TECHNIQUE: Imaging protocol: Computed tomography of the abdomen and pelvis with contrast. Axial, coronal and sagittal reformatted images were created and reviewed. Radiation optimization: All CT scans at this facility use at least one of these dose optimization techniques: automated exposure control; mA and/or kV adjustment per patient size (includes targeted exams where dose is matched to clinical indication); or iterative reconstruction. Contrast material: OMNIPAQUE 300; Contrast volume: 90 ml; Contrast route: INTRAVENOUS (IV); COMPARISON: CT abdomen pelvis w con* [id number] 06/25/2021 9:02 PM RADIATION DOSE METRICS: Total DLP (mGy-cm): 1769.03 FINDINGS: Liver: Coarse calcified hepatic granulomata. Gallbladder and bile ducts: Status post cholecystectomy. No biliary ductal dilatation. Pancreas: Unremarkable. Spleen: Unremarkable. Adrenal glands: Normal. No mass. Kidneys and ureters: No mass. No radiodense calculi. No hydronephrosis. Stomach and bowel: Status post gastric bypass. Nondilated, fluid-filled, mildly hyperemic loops of small bowel, some of which appear mildly thickened. Submucosal fat deposition in the colon, consistent with chronic inflammation. No obstruction. No pneumatosis. Appendix: Normal. Intraperitoneal space: No free fluid. No organized fluid collection. No free air. Vasculature: Unremarkable. No aneurysm. Lymph nodes: No pathologically enlarged lymph nodes. Urinary bladder: Decompressed urinary bladder, which limits evaluation for wall thickening. Reproductive: Status post hysterectomy. Bones/joints: No acute osseous abnormality. Osteopenia. Mild degenerative changes. Soft tissues: Unremarkable. CT/CT abdomen pelvis w con* [id number] IMPRESSION: 1. Nondilated, fluid-filled, mildly hyperemic loops of small bowel, some of which appear mildly thickened. Query mild nonspecific enteritis. 2. Additional findings, as above.
[2022-01-11 18:49] LABS: Basophils # 0.1 10^3/uL (0.0-0.1); Basophils % 0.7 %; Eosinophils # 0.1 10^3/uL (0.0-0.8); Eosinophils % 1.9 %; Hematocrit 44.7 % (37.0-47.0); Hemoglobin 14.8 g/dL (11.5-15.3); Lymphocytes # 1.8 10^3/uL (0.8-4.8); Lymphocytes % 26.5 %; Mean Corpuscular HGB Conc 33.1 g/dL (30.0-36.0); Mean Corpuscular Volume 90.5 fl (81-99); Mean Platelet Volume 9.4 fL (7.4-10.4); Monocytes # 0.4 10^3/uL (0.2-0.9); Monocytes % 6.4 %; Neutrophils # 4.39 10^3/uL (1.8-7.7); Neutrophils % 64.1 %; Nucleated Red Blood Cells % 0 %; Platelet Count 244 10^3/cmm (130-400); Red Blood Count 4.94 10^6/uL (4.1-5.3); Red Cell Distribution Width 12.7 % (12.1-15.1); White Blood Count 6.9 10^3/uL (4.0-10.0)
[2022-01-11] MEDS: iohexol 300 mg/mL 100 mL Btl IV (18:54)
[2022-01-11] MEDS: dicyclomine 20 mg Tablet PO (19:14)
[2022-01-11] MEDS: ondansetron 2 mg/ML SDV 2 mL 4 MG IVP (19:14)
[2022-01-11 19:15] LABS: Alanine Aminotransferase 18 U/L (0-33); Albumin Level 4.3 g/dL (3.5-5.2); Alkaline Phosphatase 90 IU/L (35-105); Anion Gap 13.7 (5-19); Aspartate Amino Transferase 20 U/L (0-32); Blood Urea Nitrogen 12 mg/dL (6-20); Calcium 9.8 mg/dL (8.5-10.5); Carbon Dioxide 25 mmol/L (22-29); Chloride 106 mmol/L (98-107); Globulin 3.8 g/dL (1.3-4.6); Glomerular Filtration Rate 88.9 mL/min (90-130); Glucose 94 mg/dL (65-115); Lipase 42 U/L (13-60); Osmolality Calculated 292 mOsm/kg (285-295); Potassium 3.7 mmol/L (3.5-5.1); Sodium 141 mmol/L (136-145); Total Bilirubin 0.3 mg/dL (0.15-1.2); Total Protein 8.1 g/dL (6.6-8.7)
[2022-01-11 19:36] VITALS: BP 176/65; PULSE 52; RESP 18; O2SAT 99
[2022-01-11 20:15] LABS: HCG Qualitative Urine. Negative (Negative)
[2022-01-11 20:17] LABS: Add Urine Culture? No; Add Urine Microscopic? YES; Bacteria Urine 2+ /hpf; Bilirubin Urine Neg (Negative); Blood Urine 2+ (Negative); Glucose Urine UA Norm (Normal); Ketones Urine Negative (Negative); Leukocyte Esterase Urine 1+ (Negative); Nitrate Urine Negative (Negative); Protein Urine Neg (Negative); Specific Gravity, Urine 1.005 (1.005-1.030); Squamous Epithelial Cell Urine 25-40 /hpf (0-5); Urine Color Yellow (Yellow); Urobilinogen Urine Norm (Negative); pH Urine 5 (5-7)
[2022-01-11] MEDS: ciprofloxacin 500 mg Tablet PO (20:37)
[2022-01-11 20:48] VITALS: BP 181/98; PULSE 54; RESP 18; O2SAT 97
== END 2022-01-11 20:49 | disposition home or self-care (01) ==
PROVIDERS: Emergency Provider Emergency Medicine
DX: K52.9 Noninfective gastroenteritis and colitis, unspecified (principal); Z87.891 Personal history of nicotine dependence; E11.9 Type 2 diabetes mellitus without complications; E78.5 Hyperlipidemia, unspecified; I10 Essential (primary) hypertension
CPT/HCPCS: 74177; 80053; 81001; 81025; 83690; 85025; 96374; 99284; J2405; Q9967

== ENCOUNTER 2022-01-17 08:18 | Outpatient (CLI) | payer MEDICARE, MEDICAID, SELFPAY ==
--- NOTE | 2022-01-17 08:34 | FL_ITS ---
WS: [id number] Barium swallow and esophagram, upper GI series, 01/17/2022 Clinical Data: R11.10 - Vomiting, unspecified Comparison: Barium swallow, 10/15/2017. Fluoroscopy time: 1.0 minutes. Findings: The patient swallowed the thick and thin barium, and it flowed through the hypopharynx without hesita tion. No stricture, mass, polyp or erosion was seen. The barium passed into the esophagus and there was normal motility throughout. No hiatal hernia, refl ux, stricture, polyp, mass, erosion or ulcer was noted. The barium passed into the stomach remnant wh ich was small. No obstruction or extravasation could be seen. The gastroduodenal jejunostomy fill nor caleb. Proximal jejunum was entirely normal. There are clips in the right upper quadrant from a jessica cystectomy. FL/FL upper GI w air* [id number] Impression: 1. Normal stomach reduction from a gastric bypass. 2. Negative for obstruction or extravasation. 3. Normal gastrojejunal anastomosis with prompt flow of barium into the jejunum . 4. Negative esophagram.
== END 2022-01-17 08:19 | disposition home or self-care (01) ==
LOC: RAD 08:19
PROVIDERS: Visit Provider Surgery
DX: Z11.52 Encounter for screening for COVID-19 (principal); R11.10 Vomiting, unspecified; Z90.3 Acquired absence of stomach [part of]
CPT/HCPCS: 74246; 87635

== ENCOUNTER 2022-01-23 08:47 | Day surgery (SDC) | payer MEDICARE, MEDICAID, SELFPAY ==
[2022-01-18 13:12] VITALS: BMI 41.3
--- NOTE | 2022-01-23 09:06 | ANES.PREANE2 ---
Pre-Anesthetic Assessment Height/Weight: Height 1.68 m Weight 116.12 kg Preop Diagnosis: Nausea and vomiting status post gastric bypass Operation Date: 01/23/22 10:45 Proposed Procedures p [id number]/diag R11.2 nausea and vomiting(Not Applicable) - John Fulton MD Familial anesthetic complications: None Was Beta Paige taken within 24 hours: N/A Was Clonidine taken within 24 hours: N/A Last intake: > 8hrs Social No alcohol and No tobacco Airway Mallampati: Class I Dentition: chipped (breaking off by themselves) Pulmonary Sleep Apnea CV/HEM Hypertension None reported Hepatic None reported GI gastric bypass Metabolic Diabetes Mellitus, Morbid Obesity and Thyroid Disease [facility] [place] [place] None reported Neuropsych Seizure (age 2 - 15 years old) Anesthetic Plan ASA status: 3 Anesthesia: MAC Risk of > 500 ml blood loss (7ml/kg in children): No Medications/Allergies Home Medications Medication Instructions Recorded Confirmed Last Taken Type docusate sodium 100 mg capsule 100 mg PO PRN 11/16/19 01/18/22 06/06/20 History lancets (Accu-Chek Softclix #50 each 11/30/19 01/18/22 Unknown Rx Lancets) blood-glucose meter (Accu-Chek #1 each 12/13/19 01/18/22 Unknown Rx Leeann Plus Meter) GLUCOMETER #1 ea 12/14/19 01/18/22 Unknown Rx lancets (Accu-Chek Fastclix Lancet #50 each 12/21/19 01/18/22 Unknown Rx Drum) levothyroxine 100 mcg capsule 100 mcg PO DAILY cap 01/27/20 01/18/22 06/25/21 History lancing device with lancets kit #100 each 04/25/20 01/18/22 Unknown Rx (Accu-Chek Soft Dev Lancets) liothyronine 5 mcg tablet 5 mcg PO DAILY 05/03/20 01/18/22 06/25/21 History paroxetine HCl 20 mg tablet 20 mg PO DAILY 05/03/20 01/18/22 06/25/21 History pen needle, diabetic 31 gauge x #100 each 05/11/20 01/18/22 Unknown Rx 5/16 (BD Ultra-Fine Short Pen Needle) simvastatin 20 mg tablet 20 mg PO DAILY #30 tab 07/08/2901/18/22 06/25/21 Rx montelukast 10 mg tablet 10 mg PO DAILY #90 tab 06/13/20 01/18/22 06/25/21 Rx (Singulair) acetaminophen 500 mg tablet 1,000 mg PO PRN 10/24/20 01/18/22 06/25/21 History (Tylenol Extra Strength) blood sugar diagnostic (Accu-Chek #100 each 11/16/20 01/18/22 Unknown Rx Leeann Plus test strp) dicyclomine 20 mg tablet 20 mg PO QID #20 tab 06/25/21 01/18/22 Unknown Rx cetirizine 10 mg tablet 10 mg PO DAILY #20 tab 07/21/21 01/18/22 Unknown Rx buspirone 15 mg tablet 15 mg PO BID #60 tab 07/26/21 01/18/22 Unknown Rx citalopram 20 mg tablet (Celexa) 20 mg PO DAILY #30 tab 07/26/21 01/18/22 Unknown Rx cyclobenzaprine 7.5 mg tablet 7.5 mg PO TID PRN #14 tab 11/21/21 01/18/22 Unknown Rx ondansetron 4 mg disintegrating 4 mg PO Q8H PRN #20 tab 12/27/21 01/18/22 Unknown Rx tablet permethrin 5 % topical cream 1 applic TOPICAL .q 7 days #60 g 01/15/22 01/18/22 Unknown Rx Allergies Allergy/AdvReac Type Severity Reaction Status Date / Time lisinopril Allergy Severe Unknown Verified 01/18/22 08:33 Pertussis Vaccines Allergy Severe ALGY-Rash Verified 01/18/22 08:33 Sulfa (Sulfonamide Allergy Severe ALGY-Rash Verified 01/18/22 08:33 Antibiotics) sulfamethoxazole Allergy Severe Unknown Verified 01/18/22 08:33 [From Septra] trimethoprim [From Julra] Allergy Severe Unknown Verified 01/18/22 08:33 ibuprofen Allergy ALGY-Anaphy Verified 01/18/22 08:33 laxis [facility] Anesthesia Medical History Acute serous otitis media of left ear Anxiety Borderline intellectual functioning Controlled type 2 diabetes mellitus, without long-term current use of insulin Depression Dyslipidemia Enrolled in chronic care management Generalized anxiety disorder GERD (gastroesophageal reflux disease) Hypertension Hypothyroidism Obesity BHARAT (obstructive sleep apnea) Psychiatric care Seizure disorder Tinnitus Surgical History History of colonoscopy with polypectomy (~09/2018) History of esophagogastroduodenoscopy (EGD) (~09/2018) History of gastric bypass 2020- - History of hysterectomy with oophorectomy History of laparoscopic cholecystectomy Family History Grandmother Cancer Father Lung disease Diabetes Denies family history of Anesthesia complication Bleeding disorder Social History Smoking and tobacco status: never smoked Quit status (tobacco): has quit using tobacco Second hand smoke exposure: No Smoking risk assessment/counseling performed?: No Alcohol intake: never Desire information about alcohol rehabilitation?: No Counseling given: No Desire information about substance/drug rehabilitation?: No Counseling given: No Adopted: No Caregiver/support person: Yes Lives independently: Yes Housing: House Marital status: Single Highest education level completed: High School Graduate service: No Current occupational status: employed 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
[2022-01-23 09:41] VITALS: BP 125/81; PULSE 67; RESP 18; TEMP 36.3; O2SAT 99
[2022-01-23] MEDS: sodium chloride 0.9% 1,000 ML 30 ML IV (09:57)
--- NOTE | 2022-01-23 10:47 | W.PM.OPSUD ---
Surgery/Procedure H&P Update DATE OF PROCEDURE: January 23, 2022 DATE H&P PERFORMED: 01/16/22 CHANGES TO PREVIOUS DOCUMENTATION: Patient undergone upper GI study that did show normal post gastric bypass anatomy PREOP DIAGNOSIS: Nausea and vomiting status post gastric bypass PRIMARY INDICATION FOR PROCEDURE: The same PLANNED PROCEDURE: Operation Date: 01/23/22 10:45 Proposed Procedures p [id number]/diag R11.2 nausea and vomiting(Not Applicable) - John Fulton MD
[2022-01-23 11:30] VITALS: BP 109/63; PULSE 62; RESP 18; TEMP 36.2; O2SAT 94
[2022-01-23 11:50] VITALS: BP 140/84; PULSE 56; RESP 20; TEMP 36.2; O2SAT 98
--- NOTE | 2022-01-23 12:24 | ANE.PACU2 ---
Inpatient post-anesthesia follow up: Airway intact: Yes Vital signs: Temperature 97.1 F Pulse Rate 56 Respiratory Rate 20 Blood Pressure 140/84 Pulse Oximetry 98 Oxygen Delivery Me thod Room Air Oxygen Flow Rate Fraction of Inspir ed Oxygen Hydration adequate: Yes Nausea and vomiting: No Pain level: 1 Mental status: Baseline
== END 2022-01-23 12:05 | disposition home or self-care (01) ==
PROVIDERS: Visit Provider Surgery
PROC: 0DJ08ZZ Inspection of Upper Intestinal Tract, Via Natural or Artificial Opening Endoscopic (ICD-10-PCS; CPT 43235; principal; 2022-01-23 10:45)
DX: R11.2 Nausea with vomiting, unspecified (principal); Z98.84 Bariatric surgery status; G47.30 Sleep apnea, unspecified; E11.9 Type 2 diabetes mellitus without complications; E66.01 Morbid (severe) obesity due to excess calories; Z68.41 Body mass index [BMI] 40.0-44.9, adult; F32.9 Major depressive disorder, single episode, unspecified; E78.5 Hyperlipidemia, unspecified; I10 Essential (primary) hypertension; E03.9 Hypothyroidism, unspecified; E66.9 Obesity, unspecified; G47.33 Obstructive sleep apnea (adult) (pediatric)
CPT/HCPCS: 43235; J2704; J7030

== ENCOUNTER 2022-02-12 19:22 | Emergency (ER) | payer MEDICARE, MEDICAID, SELFPAY ==
[2022-02-12 19:29] VITALS: BP 131/77; PULSE 69; RESP 18; TEMP 36.9; O2SAT 99; BMI 41.1
[2022-02-12 19:33] VITALS: BP 140/70; PULSE 67; RESP 18; O2SAT 98
--- NOTE | 2022-02-12 19:50 | ED_ITS ---
HPI - Skin/Abscess/Foreign Bdy General: Chief complaint: Allergic Reaction Stated complaint: Allergic reaction Time Seen by Provider: 02/12/22 19:35 Source: patient Mode of arrival: ambulatory Limitations: no limitations History of Present Illness: Patient is a 51-year-old female who presents to ED today with a complaint of a pruritic rash. After looking at patient's previous documentation-looks like she was diagnosed with scabies approximately a month ago by cutter brake lining Dr. Arauz after positive dermoscopy findings. Patient followed up with her recently and was prescribed oral Ivermectin. Patient states she just took her first dose approximately 3 days ago. She has instructions for repeat dosing in 2 weeks. Patient states she is still having pruritus to her right forearm and AC space. MD complaint: other (rash) Onset (ago): week(s) Tetanus up to date: yes Location: LUE, RUE, genitals (inguinal spaces), LLE and RLE Quality: pruritic Context: other (recently diagnosed with scabies) Associated symptoms: Reports itching; Deny chills, fever(s), nausea or vomiting Treatments prior to arrival: other (Permethrin, oral Ivermectin ) Review of Systems Const: Denies: fever(s), chills, body aches, fatigue or malaise Card: Denies: chest pain Resp: Denies: dyspnea GI: Denies: abdominal pain, nausea, vomiting or diarrhea Musc: Denies: neck pain, back pain, extremity pain or joint pain Skin/Breast: Reports: rash and pruritus Neuro: Denies: headache(s), numbness in extremities, weakness in extremities or sensory changes [facility] ED PFSH: Medical History Acute serous otitis media of left ear Anxiety Borderline intellectual functioning Controlled type 2 diabetes mellitus, without long-term current use of insulin Depression Dizziness Dumping syndrome Dyslipidemia Enrolled in chronic care management Generalized anxiety disorder GERD (gastroesophageal reflux disease) Hypertension Hypothyroidism Nausea & vomiting Obesity BHARAT (obstructive sleep apnea) Psychiatric care Seizure disorder Tinnitus Surgical History History of colonoscopy with polypectomy (~09/2018) History of esophagogastroduodenoscopy (EGD) (~09/2018) History of gastric bypass 2020- chidi- [facility] History of hysterectomy with oophorectomy History of laparoscopic cholecystectomy Family History Grandmother Cancer Father Lung disease Diabetes Denies family history of Anesthesia complication Bleeding disorder Social History Smoking and tobacco status: never smoked Quit status (tobacco): has quit using tobacco Second hand smoke exposure: No Smoking risk assessment/counseling performed?: No Alcohol intake: never Desire information about alcohol rehabilitation?: No Counseling given: No Desire information about substance/drug rehabilitation?: No Counseling given: No Adopted: No Caregiver/support person: Yes Lives independently: Yes Housing: House Marital status: Single Highest education level completed: High School Graduate service: No Current occupational status: employed 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 Current occupational exposures/hazards: No Pets and animals: Yes History of recent travel: No Sexually active: Yes Ania/Islam: None Special ania needs: No Agree to transfusion: Yes Financial difficulty paying for basics: Not Very Hard Physical Exam Const: COMMON NORMALS: no acute distress, patient oriented x3, no limitations and alert NUTRITIONAL APPEARANCE: obese morbidly obese ORIENTATION/CONSCIOUSNESS: Yes awake, Yes oriented to person, Yes oriented to place and Yes oriented to time Neuro: COMMON NORMALS: patient oriented x3 SENSORIUM/ORIENTATION: Yes alert, Yes oriented to person, Yes oriented to place and Yes oriented to time Skin: GENERAL SKIN EXAM: crusts RASHES: rashes noted OTHER: pt has diffuse papular rash with scabs/crusts mainly localized to extremities/inguinal regions; there are several linear papular distributions consistent with scabies; lesions present in webbings also consistent with scabies Course Vital Signs: Vital signs: Vital Signs Temperature 98.5 F 02/12/22 19:29 Pulse Rate 68 02/12/22 20:01 Respiratory Rate 16 02/12/22 20:01 Blood Pressure 139/92 02/12/22 20:01 Pulse Oximetry 98 02/12/22 20:01 MDM - Skin/Abscess/Foreign Bdy Medicial Decision Making Patient states she just took the oral Ivermectin approximately 3 days ago. Explained to her how pruritus most likely is not going to resolve this soon. She has instructions from Dr. Arauz to apply triamcinolone cream for pruritus. She most likely will require repeat dosing in 2 weeks which she was prescribed. Also discussed the possibility of re-infestation if her home has not been adequately cleaned and infection eradicated there. We discussed how all carpets, sofas/furniture needs to be deep cleaned/vacuumed. Clothes need to be sealed up for at least 72 hours. Sheets/bedding/clothes/etc need to be washed in hot water and dried on high heat. Patient verbalized understanding. She s tates she has instructions to contact Dr. Arauz following the second round of Ivermectin if she still has symptoms/rash. Discharge Plan Discharge Patient Disposition: Home Clinical Impression: Scabies Condition: Stable Prescriptions: No Action montelukast [Singulair] 10 mg tablet 10 mg PO DAILY Qty: 90 1RF citalopram [Celexa] 20 mg tablet 20 mg PO DAILY Qty: 30 2RF buspirone 15 mg tablet 15 mg PO BID Qty: 60 2RF cyclobenzaprine 7.5 mg tablet 7.5 mg PO TID PRN (Reason: muscle spasm) Qty: 14 0RF ivermectin 3 mg tablet 15 mg PO ONCE Qty: 10 0RF Rx Instructions: take 5 tabs now then repeat 5 tabs in 2 weeks docusate sodium 100 mg capsule 100 mg PO PRN 0RF levothyroxine 100 mcg capsule 100 mcg PO DAILY 0RF permethrin 5 % cream 1 applic topical .q 7 days Qty: 60 1RF Rx Instructions: Apply from neck down to feet. Leave on overnight and rinse in the morning. Repeat in 1 week gentamicin 0.3 % drops 1 drp ophthalmic (eye) TID 7 Days Qty: 5 0RF (DME) lancets [Accu-Chek Softclix Lancets] Misc See Rx Instructions .ROUTE .MEDSUPPLY Qty: 50 0RF Rx Instructions: ONE DAILY (DME) blood-glucose meter [Accu-Chek Leeann Plus Meter] Misc See Rx Instructions .ROUTE .MEDSUPPLY Qty: 1 0RF Rx Instructions: ONE TIME DAILY (DME) GLUCOMETER Qty: 1 0RF Rx Instructions: USE ONCE DAILY (DME) lancets [Accu-Chek Fastclix Lancet Drum] Misc See Rx Instructions .ROUTE .MEDSUPPLY Qty: 50 0RF Rx Instructions: 1 daily (DME) lancing device with lancets [Accu-Chek Soft Dev Lancets] Kit See Rx Instructions .ROUTE .MEDSUPPLY Qty: 100 2RF Rx Instructions: once daily (DME) pen needle, diabetic [BD Ultra-Fine Short Pen Needle] 31 gauge x 5/16 needle See Rx Instructions .ROUTE .MEDSUPPLY Qty: 100 2RF Rx Instructions: once daily simvastatin 20 mg tablet 20 mg PO DAILY Qty: 30 5RF (DME) Accu-Chek Leeann Plus test strp Strip See Rx Instructions .ROUTE .MEDSUPPLY Qty: 100 1RF Rx Instructions: ONE TIME DAILY liothyronine 5 mcg tablet 5 mcg PO DAILY 0RF paroxetine HCl 20 mg tablet 20 mg PO DAILY 0RF acetaminophen [Tylenol Extra Strength] 500 mg Tablet 1,000 mg PO PRN 0RF dicyclomine 20 mg tablet 20 mg PO QID Qty: 20 0RF ondansetron 4 mg tablet,disintegrating 4 mg PO Q8H PRN (Reason: nausea and vomiting) Qty: 20 0RF Carafate 1 gram tablet 1 g PO TID 84 Days Qty: 252 0RF Protonix 40 mg tablet,delayed release (DR/EC) 40 mg PO DAILY 30 Days Qty: 30 3RF Discharge Orders: Discharge ED (Routine); Ordered 02/12/22 Ordered By: Jacqueline Chan Referrals: Frieda Arauz DO [Physician] - Patient Instructions: Scabies (ED), Scabies - Adult Coding Level of Care Code ED 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
[2022-02-12 20:01] VITALS: BP 139/92; PULSE 68; RESP 16; O2SAT 98
== END 2022-02-12 20:05 | disposition home or self-care (01) ==
PROVIDERS: Emergency Provider Physician Assistant
DX: B86 Scabies (principal)
CPT/HCPCS: 99281

== ENCOUNTER → 2022-02-13 07:58 | Outpatient (BNVA) | payer MEDICARE, MEDICAID, SELFPAY | PROVIDERS: Visit Provider Orthopaedic Surgery | DX: M25.512 Pain in left shoulder (principal) | CPT/HCPCS: 99213 ==

== ENCOUNTER 2022-02-19 21:00 | Emergency (ER) | payer MEDICARE, MEDICAID, SELFPAY ==
[2022-02-19 21:09] VITALS: BP 148/83; PULSE 73; RESP 18; TEMP 36.8; O2SAT 95; BMI 41.9
--- NOTE | 2022-02-19 21:13 | ED_ITS ---
HPI - General Adult General: Chief complaint: General Medical Stated complaint: coughing up blood Time Seen by Provider: 02/19/22 21:13 History of Present Illness: Ms. Trujillo is a 51-year-old lady with complex past medical history including hypertension, obesity, diabetes, gastric bypass who presents to the emergency department due to hemoptysis. She reports over the past few days she had a vomiting illness however this is largely improved and was sitting in the bath today approximately 15 minutes prior to leaving to come to the hospital when she had 2 episodes of coughing up blood. She does have mild difficulty definitively identifying the source of the bleeding though she does endorse that it was coughing and did not have preceding vomiting. She had mild shortness of breath associated with this however it has improved. Only other associated factor that she can think of is earlier today she felt a little lightheaded that correlated this with mild decrease from her baseline glucose while at work though it was 91 when she checked it. Intensity symptoms at worst was moderate. Course is not applicable. Denies similar episodes in past or history of hematemesis. No other specific changes in health, exacerbating, or alleviating factors identified. Onset (ago): minute(s) Severity: moderate Pain Consistency: now resolved Relieving factors: none Exacerbating factors: none Review of Systems General: Reports: 10 or more systems reviewed and unremarkable except in HPI and below PFSH ED PFSH: Medical History Acute serous otitis media of left ear Anxiety Borderline intellectual functioning Controlled type 2 diabetes mellitus, without long-term current use of insulin Depression Dizziness Dumping syndrome Dyslipidemia Enrolled in chronic care management Generalized anxiety disorder GERD (gastroesophageal reflux disease) Hypertension Hypothyroidism Nausea & vomiting Obesity BHARAT (obstructive sleep apnea) Psychiatric care Seizure disorder Tinnitus Surgical History History of colonoscopy with polypectomy (~09/2018) History of esophagogastroduodenoscopy (EGD) (~09/2018) History of gastric bypass 2020- [facility]- [facility] History of hysterectomy with oophorectomy History of laparoscopic cholecystectomy Family History Grandmother Cancer Father Lung disease Diabetes Denies family history of Anesthesia complication Bleeding disorder Social History Smoking and tobacco status: never smoked Quit status (tobacco): has quit using tobacco Second hand smoke exposure: No Smoking risk assessment/counseling performed?: No Alcohol intake: never Desire information about alcohol rehabilitation?: No Counseling given: No Desire information about substance/drug rehabilitation?: No Counseling given: No Adopted: No Caregiver/support person: Yes Lives independently: Yes Housing: House Marital status: Single Highest education level completed: High School Graduate service: No Current occupational status: employed 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 Current occupational exposures/hazards: No Pets and animals: Yes History of recent travel: No Sexually active: Yes Ania/Catholic: None Special ania needs: No Agree to transfusion: Yes Financial difficulty paying for basics: Not Very Hard Physical Exam Const: COMMON NORMALS: alert GENERAL APPEARANCE: cooperative and well developed NUTRITIONAL APPEARANCE: obese HENMT: COMMON NORMALS: normocephalic and atraumatic HEAD & SCALP: normocephalic and atraumatic THROAT: posterior oropharynx normal Eye: COMMON NORMALS: conjunctivae normal CONJUNCTIVA: Yes conjunctivae normal SCLERA: sclerae normal Neck/C-Spine: COMMON NORMALS: supple GENERAL: Yes trachea midline Resp: COMMON NORMALS: normal respiratory effort EFFORT & INSPECTION: Yes able to speak in complete sentences Cardio: COMMON NORMALS: regular rate and regular rhythm RATE: regular rate RHYTHM: regular rhythm GI: COMMON NORMALS: Soft to palpation PALPATION: Yes Soft to palpation and No Tenderness to palpation present (GI) Extremity: GENERAL: Yes normal exam except as noted and No edema Neuro: COMMON NORMALS: moves all extremities SENSORIUM/ORIENTATION: Yes alert and No Orientation impaired Psych: COMMON NORMALS: mental status grossly normal and Normal thought process present THOUGHT PROCESS: Normal thought process present Course ED course: - Patient was seen and evaluated by me at bedside - Patient placed on cardiac monitors, IV access obtained - Initial evaluation notable for exam as above, vitals satisfactory, no active hemoptysis - Labs and xrays personally interpreted by me. EKG at 2156 personally interpreted by me shows sinus rhythm with nonspecific ST segment abnormalities. No STEMI. - Labs notable for normal hemoglobin, no leukocytosis. No acute metabolic derangement. D-dimer negative. - Imaging notable for no lobar consolidation or pneumothorax, patient is somewhat rotated - Upon serial reexamination after treatment the patient was similar - Based on patient history, evaluation, and testing as interpreted the most likely cause of the patient's condition is hemoptysis of uncertain etiology, possibly bronchitis. I will plan to treat for bronchitis and reinitiate PPI which the patient is no longer taking. First dose here as pharmacy is closed. - The results of ED evaluation were discussed with the patient including prescriptions and/or symptomatic cares (if applicable) including appropriate and responsible use, followup plan, and return precautions. The patient verbalized understanding and felt safe for discharge. - Patient discharged in satisfactory condition. Note: Click bubbles or prepopulated hall in note writing are used for assistance with data collection and billing and are inherently more limited than narrative and other text portions of this note. Please use narrative for additional clinical history and defer to narrative/free test for any case of contradictory information. If information appears in only free text or click bubble it should be considered present or absent as reported. Please contact note freelance writer for clarifications of clinical information or contradictory information. MDM is a brief summary, contradictory or erroneous seeming information should be clarified and full note should be reviewed. Vital Signs: Vital signs: Vital Signs Temperature 98.2 F 02/19/22 21:09 Pulse Rate 68 02/19/22 23:28 Respiratory Rate 20 H 02/19/22 23:28 Blood Pressure 138/81 02/19/22 23:28 Pulse Oximetry 95 02/19/22 23:28 MDM - General Adult Medical Decision Making 51-year-old lady with complex past medical history not on anticoagulation presenting due to 1 episode of hemoptysis just prior to arrival. Vitally stable, labs satisfactory. D-dimer negative. Will treat for bronchitis and reinitiate PPI. Satisfactory for outpatient management with strict return precautions given. Medical Records I reviewed the patient's medical records. Lab Data I reviewed the patient's lab results. : 02/19/22 22:15 02/19/22 22:15 Laboratory Results WBC 7.6 10^3/uL (4.0-10.0) 02/19/22 22:15 Corrected WBC Cancelled 02/19/22 21:50 RBC 4.41 10^6/uL (4.1-5.3) 02/19/22 22:15 Hgb 13.3 g/dL (11.5-15.3) 02/19/22 22:15 Hct 40.6 % (37.0-47.0) 02/19/22 22:15 MCV 92.1 fl (81-99) 02/19/22 22:15 MCH 30.2 pg (28.0-34.0) 02/19/22 22:15 MCHC 32.8 g/dL (30.0-36.0) 02/19/22:15 RDW 13.0 % (12.1-15.1) 02/19/22:15 Plt Count 212 10^3/cmm (130-400) 02/19/22 22:15 MPV 9.2 fL (7.4-10.4) 02/19/22 22:15 Gran % Cancelled 02/19/22 21:50 Neut % (Auto) 63.1 % 02/19/22:15 Lymph % (Auto) 26.1 % 02/19/22:15 [place] % (Auto) 6.6 % 02/19/22 22:15 Eos % (Auto) 2.9 % 02/19/22:15 Baso % (Auto) 0.9 % 02/19/22 22:15 Neut # (Auto) 4.80 10^3/uL (1.8-7.7) 02/19/22 22:15 Lymph # (Auto) 2.0 10^3/uL (0.8-4.8) 02/19/22 22:15 [place] # (Auto) 0.5 10^3/uL (0.2-0.9) 02/19/22 22:15 Eos # (Auto) 0.2 10^3/uL (0.0-0.8) 02/19/22 22:15 Baso # (Auto) 0.1 10^3/uL (0.0-0.1) 02/19/22 22:15 Absolute Gran (auto) Cancelled 02/19/22 21:50 Nucleated RBC % (auto) 0 % 02/19/22:15 Nucleated RBCs # 0.0 /100WBC 02/19/22 22:15 PT 13.70 SECONDS (12.1-14.9) 02/19/22 22:15 INR 1.01 (0.8-1.2) 02/19/22 22:15 APTT 35.2 SECONDS (23.9-36.7) 02/19/22 22:15 D-Dimer 0.27 ug/mIFEU (0-0.59) 02/19/22 22:15 Sodium 140 mmol/L (136-145) 02/19/22 22:15 Potassium 3.5 mmol/L (3.5-5.1) 02/19/22 22:15 Chloride 105 mmol/L (98-107) 02/19/22 22:15 Carbon Dioxide 26 mmol/L (22-29) 02/19/22 22:15 Anion Gap 12.5 (5-19) 02/19/22 22:15 BUN 13 mg/dL (6-20) 02/19/22 22:15 Creatinine 0.6 mg/dL (0.5-0.9) 02/19/22 22:15 GFR Calculation 106.3 mL/min (90-130) 02/19/22 22:15 Glucose 111 mg/dL (65-115) 02/19/22 22:15 Calculated Osmolality 291 mOsm/kg (285-295) 02/19/22 22:15 Calcium 9.2 mg/dL (8.5-10.5) 02/19/22 22:15 Discharge Plan Discharge Patient Disposition: Home Clinical Impression: Hemoptysis, Bronchitis Condition: Stable Prescriptions: New Protonix 40 mg tablet,delayed release (DR/EC) 40 mg PO BID 10 Days Qty: 20 0RF azithromycin 250 mg tablet See Rx Instructions .ROUTE .COMPLEX Qty: 6 0RF Rx Instructions: For 250 mg dose pack: take 500 mg today (day 1), then 250 mg for 4 days (days 2-5) prednisone 50 mg tablet 50 mg PO DAILY 5 Days Qty: 5 0RF No Action montelukast [Singulair] 10 mg tablet 10 mg PO DAILY Qty: 90 1RF citalopram [Celexa] 20 mg tablet 20 mg PO DAILY Qty: 30 2RF buspirone 15 mg tablet 15 mg PO BID Qty: 60 2RF cyclobenzaprine 7.5 mg tablet 7.5 mg PO TID PRN (Reason: muscle spasm) Qty: 14 0RF ivermectin 3 mg tablet 15 mg PO ONCE Qty: 10 0RF Rx Instructions: take 5 tabs now then repeat 5 tabs in 2 weeks docusate sodium 100 mg capsule 100 mg PO PRN 0RF levothyroxine 100 mcg capsule 100 mcg PO DAILY 0RF permethrin 5 % cream 1 applic topical .q 7 days Qty: 60 1RF Rx Instructions: Apply from neck down to feet. Leave on overnight and rinse in the morning. Repeat in 1 week gentamicin 0.3 % drops 1 drp ophthalmic (eye) TID 7 Days Qty: 5 0RF (DME) lancets [Accu-Chek Softclix Lancets] Misc See Rx Instructions .ROUTE .MEDSUPPLY Qty: 50 0RF Rx Instructions: ONE DAILY (DME) blood-glucose meter [Accu-Chek [facility]ann [facility] M[facility] See [facility] .ROUTE .MEDSUPPLY Qty: 1 0RF Rx Instructions: ONE TIME DAILY (DME) GLUCOMETER Qty: 1 0RF Rx Instructions: USE ONCE DAILY (DME) lancets [Accu-Chek Fastclix Lancet Drum] [facility] See Rx Instructions .ROUTE .MEDSUPPLY Qty: 50 0RF Rx Instructions: 1 daily (DME) lancing device with lancets [Accu-Chek Soft Dev Lancets] Kit See Rx Instructions .ROUTE .MEDSUPPLY Qty: 100 2RF Rx Instructions: once daily (DME) pen needle, diabetic [BD Ultra-Fine Short Pen Needle] 31 gauge x 5/16 needle See Rx Instructions .ROUTE .MEDSUPPLY Qty: 100 2RF Rx Instructions: once daily simvastatin 20 mg tablet 20 mg PO DAILY Qty: 30 5RF (DME) Accu-Chek Leeann Plus test strp Strip See Rx Instructions .ROUTE .MEDSUPPLY Qty: 100 1RF Rx Instructions: ONE TIME DAILY liothyronine 5 mcg tablet 5 mcg PO DAILY 0RF paroxetine HCl 20 mg tablet 20 mg PO DAILY 0RF acetaminophen [Tylenol Extra Strength] 500 mg Tablet 1,000 mg PO PRN 0RF dicyclomine 20 mg tablet 20 mg PO QID Qty: 20 0RF ondansetron 4 mg tablet,disintegrating 4 mg PO Q8H PRN (Reason: nausea and vomiting) Qty: 20 0RF Carafate 1 gram tablet 1 g PO TID 84 Days Qty: 252 0RF Protonix 40 mg tablet,delayed release (DR/EC) 40 mg PO DAILY 30 Days Qty: 30 3RF Discharge Orders: Discharge ED (Routine); Ordered 02/19/22 Ordered By: Solis Francois Discharge Diet: Usual diet Discharge Activity: Resume usual activity Activity Restrictions/Additional Instructions: Thank you for visiting the emergency department. You were seen and evaluated for hemoptysis. The exact cause of your symptoms is unclear though may be related to bronchitis or irritation of the bronchial lining. Please follow-up with your primary care provider, if symptoms persist you may require additional imaging and testing. Please return to the emergency department for worsening symptoms, recurrent episodes, racing heart, lightheadedness, dizziness, shortness of breath, or anything else that you are concerned about and feel needs emergency department evaluation. 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
--- NOTE | 2022-02-19 21:29 | ECG_ITS ---
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 Measurements Intervals [place] Rate: 60 P: 32 FL: 183 QRS: 14 QRSD: 88 T: 11 QT: 447 QTc: 447 Interpretive Statements SINUS RHYTHM LOW QRS VOLTAGE IN PRECORDIAL LEADS [QRS DEFLECTION < 1.0 mV IN CHEST LEADS] Compared to ECG 08/26/2021 02:07:39 Sinus bradycardia no longer present T-wave abnormality no longer present Electronically Signed On 02-20-2022 6:46:31 CDT by Shamika Edmonds M.D. [id number]
[2022-02-19 22:08] VITALS: BP 142/83; PULSE 65; RESP 20; O2SAT 97
[2022-02-19 22:21] LABS: Basophils # 0.1 10^3/uL (0.0-0.1); Basophils % 0.9 %; Eosinophils # 0.2 10^3/uL (0.0-0.8); Eosinophils % 2.9 %; Hematocrit 40.6 % (37.0-47.0); Hemoglobin 13.3 g/dL (11.5-15.3); Lymphocytes % 26.1 %; Mean Corpuscular HGB Conc 32.8 g/dL (30.0-36.0); Mean Corpuscular Hemoglobin 30.2 pg (28.0-34.0); Mean Corpuscular Volume 92.1 fl (81-99); Mean Platelet Volume 9.2 fL (7.4-10.4); Monocytes # 0.5 10^3/uL (0.2-0.9); Monocytes % 6.6 %; Neutrophils % 63.1 %; Nucleated Red Blood Cells % 0 %; Platelet Count 212 10^3/cmm (130-400); Red Blood Count 4.41 10^6/uL (4.1-5.3); White Blood Count 7.6 10^3/uL (4.0-10.0)
[2022-02-19 22:43] VITALS: BP 133/66; PULSE 68; RESP 20; O2SAT 95
[2022-02-19 22:43] LABS: D Dimer 0.27 ug/mIFEU (0-0.59); INR 1.01 (0.8-1.2); Partial Thromboplastin Time 35.2 SECONDS (23.9-36.7)
[2022-02-19 22:48] LABS: Anion Gap 12.5 (5-19); Blood Urea Nitrogen 13 mg/dL (6-20); Calcium 9.2 mg/dL (8.5-10.5); Carbon Dioxide 26 mmol/L (22-29); Chloride 105 mmol/L (98-107); Glomerular Filtration Rate 106.3 mL/min (90-130); Glucose 111 mg/dL (65-115); Osmolality Calculated 291 mOsm/kg (285-295); Potassium 3.5 mmol/L (3.5-5.1); Sodium 140 mmol/L (136-145)
--- NOTE | 2022-02-19 22:52 | XRR_ITS ---
PROCEDURE INFORMATION: Exam: XR Chest Exam date and time: 02/19/2022 10:56 PM Age: 51 years old Clinical indication: Prior surgery; Surgery type: Gb. Gastric bypass. ; Patient HX: Patient states onset of hemoptysis earlier this evening. TECHNIQUE: Imaging protocol: XR of the chest. Views: 1 view. COMPARISON: CR XR chest 1V portable [id number] 08/26/2021 1:53 AM FINDINGS: Lungs: Unremarkable. No consolidation. Pleural spaces: Unremarkable. No pleural effusion. No pneumothorax. Heart/Mediastinum: Unremarkable. No cardiomegaly. Bones/joints: Unremarkable. Other findings: Patient rotation to the right. XR/XR chest 1V portable [id number] IMPRESSION: No acute findings.
[2022-02-19] MEDS: azithromycin 250 mg Tablet 500 MG PO (23:11)
[2022-02-19] MEDS: pantoprazole 40 mg SDV IVP (23:14)
[2022-02-19 23:21] VITALS: BP 138/81; RESP 20
[2022-02-19 23:28] VITALS: BP 138/81; PULSE 68; RESP 20; O2SAT 95
== END 2022-02-19 23:30 | disposition home or self-care (01) ==
PROVIDERS: Emergency Provider Emergency Medicine
DX: R04.2 Hemoptysis (principal); J40 Bronchitis, not specified as acute or chronic; I10 Essential (primary) hypertension; E11.9 Type 2 diabetes mellitus without complications; E78.5 Hyperlipidemia, unspecified
CPT/HCPCS: 71045; 80048; 85025; 85378; 85610; 85730; 93005; 96374; 96375; 99284; C9113; J2930; Q0144

== ENCOUNTER 2022-02-25 14:48 | Emergency (ER) | payer MEDICARE, MEDICAID, SELFPAY ==
[2022-02-25 15:09] VITALS: BP 130/80; PULSE 67; RESP 18; TEMP 37; O2SAT 98; BMI 41.1
--- NOTE | 2022-02-25 16:29 | W.ED.GENADLT ---
HPI - General Adult General: Chief complaint: Dizziness Stated complaint: dizziness/possible dehydrated/fever Time Seen by Provider: 02/25/22 16:24 History of Present Illness: Patient is a 51-year-old female with a history of cholecystectomy, hysterectomy, gastric bypass who presents the emergency room with complaints of nausea vomiting diarrhea x2 days. Patient was initially seen yesterday by Dr. Musa with diagnosed with gastroenteritis. Since then, patient said that she still has had difficulty holding food down and now is becoming more sleepy and still having persistent diarrhea. Patient then presents the emergency room for evaluation. Patient denies any focal abdominal pain but reports nausea with p.o. intake and diarrhea with p.o. intake. Patient denies any melena/hematochezia. Patient has no urinary or vaginal complaints. Onset:2 days ago Duration:2 days Location:home Severity:moderate Associated symptoms: Reports nausea and vomiting; Deny chest pain, dyspnea, rash or palpitations Review of Systems Const: Denies: fever(s) or chills Eyes: Denies: change in vision ENMT: Denies: mouth pain Card: Denies: chest pain or palpitations Resp: Denies: dyspnea or non-productive cough GI: Reports: nausea, vomiting and diarrhea; Denies: abdominal pain : Denies: dysuria Musc: Denies: extremity pain Skin/Breast: Denies: rash or new lesions Neuro: Denies: weakness in extremities Psych: Reports: other (Normal mood) Red/Lymph: Denies: easy bruising PFSH ED PFSH: Medical History Acute serous otitis media of left ear Anxiety Borderline intellectual functioning Controlled type 2 diabetes mellitus, without long-term current use of insulin Depression Dizziness Dumping syndrome Dyslipidemia Enrolled in chronic care management Generalized anxiety disorder GERD (gastroesophageal reflux disease) Hypertension Hypothyroidism Nausea & vomiting Obesity BHARAT (obstructive sleep apnea) Psychiatric care Seizure disorder Tinnitus Surgical History History of colonoscopy with polypectomy (~09/2018) History of esophagogastroduodenoscopy (EGD) (~09/2018) History of gastric bypass 2020- [facility] History of hysterectomy with oophorectomy History of laparoscopic cholecystectomy Family History Grandmother Cancer Father Lung disease Diabetes Denies family history of Anesthesia complication Bleeding disorder Social History Smoking and tobacco status: never smoked Quit status (tobacco): has quit using tobacco Second hand smoke exposure: No Smoking risk assessment/counseling performed?: No Alcohol intake: never Desire information about alcohol rehabilitation?: No Counseling given: No Desire information about substance/drug rehabilitation?: No Counseling given: No Adopted: No Caregiver/support person: Yes Lives independently: Yes Housing: House Marital status: Single Highest education level completed: High School Graduate service: No Current occupational status: employed 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 Current occupational exposures/hazards: No Pets and animals: Yes History of recent travel: No Sexually active: Yes Ania/Holiness: None Special ania needs: No Agree to transfusion: Yes Financial difficulty paying for basics: Not Very Hard Physical Exam Const: COMMON NORMALS: alert HENMT: COMMON NORMALS: atraumatic HEAD & SCALP: atraumatic MOUTH: moist mucous membranes not abnormal Eye: COMMON NORMALS: EOMs intact bilaterally and conjunctivae normal CONJUNCTIVA: Yes conjunctivae normal Neck/C-Spine: COMMON NORMALS: full ROM and supple Resp: COMMON NORMALS: normal respiratory effort and clear to auscultation bilaterally AUSCULTATION: clear to auscultation bilaterally Cardio: COMMON NORMALS: regular rate RATE: regular rate GI: COMMON NORMALS: Soft to palpation and non-tender PALPATION: Yes Soft to palpation OTHER: No focal TTP. NO guarding rebound, guarding, rigidity. No CVA tenderness to percussion. Neg Maldonado/Neg McBurney's point tenderness, no suprabupic tenderness to palpation. Extremity: COMMON NORMALS: full ROM Neuro: SENSORIUM/ORIENTATION: Yes alert MOTOR EXAM: No Abnormal motor strength present and Other motor observations present (no focal motor deficits) Psych: COMMON NORMALS: speech normal SPEECH: Yes normal speech MOOD & AFFECT: Yes euthymic mood Course Vital Signs: Vital signs: Vital Signs Temperature 98.6 F 02/25/22 15:09 Pulse Rate 67 02/25/22 15:09 Respiratory Rate 18 02/25/22 15:09 Blood Pressure 130/80 02/25/22 15:09 Pulse Oximetry 98 02/25/22 15:09 [facility] - General Adult Medical Decision Making 51-year-old female with a prior history of cholecystectomy, hysterectomy, gastric bypass presenting to the emergency room with nausea/vomiting and diarrhea x2 days. Patient has no focal abdominal tenderness. Patient appears to be dry mildly somnolent on exam. Patient is GCS 15 arousable to voice. Patient received GI cocktail, IVF, Zofran with significant improvement in symptoms of nausea/vomiting. Patient has no leukocytosis. Rest of lab within normal limit. Patient is able to tolerate p.o. without any difficulty. No suspicion for other acute intra-abdominal pathology including SBO, biliary pathology, appendicitis, diverticulitis, or other emergent condition requiring surgery. Rx tylenol PRN abd pain, maalox/pepcid PRN dyspepsia, and zofran PRN nausea/vomiting Disposition: Discharge. Patient counseled regarding diagnostic impression, treatment plan. Patient given ED strict return precautions to return for continuation, worsening, or development of new symptoms. Instructed to f/u w/ PCP regarding symptoms today. Patient verbalized understanding. Lab Data : 02/25/22 17:00 02/25/22 17:00 Laboratory Results WBC 6.9 10^3/uL (4.0-10.0) 02/25/22 17:00 RBC 4.76 10^6/uL (4.1-5.3) 02/25/22 17:00 Hgb 14.2 g/dL (11.5-15.3) 02/25/22 17:00 Hct 42.9 % (37.0-47.0) 02/25/22 17:00 MCV 90.1 fl (81-99) 02/25/22 17:00 MCH 29.8 pg (28.0-34.0) 02/25/22 17:00 MCHC 33.1 g/dL (30.0-36.0) 02/25/22 17:00 RDW 12.6 % (12.1-15.1) 02/25/22 17:00 Plt Count 233 10^3/cmm (130-400) 02/25/22 17:00 MPV 9.1 fL (7.4-10.4) 02/25/22 17:00 Neut % (Auto) 63.5 % 02/25/22 17:00 Lymph % (Auto) 27.9 % 02/25/22 17:00 [place] % (Auto) 6.4 % 02/25/22 17:00 Eos % (Auto) 1.3 % 02/25/22 17:00 Baso % (Auto) 0.6 % 02/25/22 17:00 Neut # (Auto) 4.38 10^3/uL (1.8-7.7) 02/25/22 17:00 Lymph # (Auto) 1.9 10^3/uL (0.8-4.8) 02/25/22 17:00 [place] # (Auto) 0.4 10^3/uL (0.2-0.9) 02/25/22 17:00 Eos # (Auto) 0.1 10^3/uL (0.0-0.8) 02/25/22 17:00 Baso # (Auto) 0.0 10^3/uL (0.0-0.1) 02/25/22 17:00 Nucleated RBC % (auto) 0 % 02/25/22 17:00 Nucleated RBCs # 0.0 /100WBC 02/25/22 17:00 Sodium 140 mmol/L (136-145) 02/25/22 17:00 Potassium 3.8 mmol/L (3.5-5.1) 02/25/22 17:00 Chloride 103 mmol/L (98-107) 02/25/22 17:00 Carbon Dioxide 27 mmol/L (22-29) 02/25/22 17:00 Anion Gap 13.8 (5-19) 02/25/22 17:00 BUN 13 mg/dL (6-20) 02/25/22 17:00 Creatinine 0.8 mg/dL (0.5-0.9) 02/25/22 17:00 GFR Calculation 76.2 mL/min (90-130) L 02/25/22 17:00 Glucose 85 mg/dL (65-115) 02/25/22 17:00 Calculated Osmolality 289 mOsm/kg (285-295) 02/25/22 17:00 Calcium 9.4 mg/dL (8.5-10.5) 02/25/22 17:00 Total Bilirubin 0.3 mg/dL (0.15-1.2) 02/25/22 17:00 AST 18 U/L (0-32) 02/25/22 17:00 ALT 21 U/L (0-33) 02/25/22 17:00 Alkaline Phosphatase 73 IU/L (35-105) 02/25/22 17:00 Total Protein 7.4 g/dL (6.6-8.7) 02/25/22 17:00 Albumin 3.7 g/dL (3.5-5.2) 02/25/22 17:00 Globulin 3.7 g/dL (1.3-4.6) 02/25/22 17:00 Lipase 44 U/L (13-60) 02/25/22 17:00 HCG, Qual Negative (Negative) 02/25/22 16:34 Urine Color Yellow (Yellow) 02/25/22 16:34 Urine Appearance Clear (CLEAR) 02/25/22 16:34 Urine pH 7 (5-7) 02/25/22 16:34 Ur Specific [place] 1.010 (1.005-1.030) 02/25/22 16:34 Urine Protein Neg (Negative) 02/25/22 16:34 Urine Glucose (UA) Norm (Normal) 02/25/22 16:34 Urine Ketones Negative (Negative) 02/25/22 16:34 Urine Blood Neg (Negative) 02/25/22 16:34 Urine Nitrate Negative (Negative) 02/25/22 16:34 Urine Bilirubin Neg (Negative) 02/25/22 16:34 Urine Urobilinogen Neg mg/dL (Negative) 02/25/22 16:34 Ur Leukocyte Esterase Negative (Negative) 02/25/22 16:34 Discharge Plan Discharge Patient Disposition: Home Clinical Impression: Nausea & vomiting, Diarrhea Condition: Stable Prescriptions: New acetaminophen 500 mg tablet 500 mg PO Q6H PRN (Reason: pain) 5 Days Qty: 20 0RF Pepcid 20 mg tablet 20 mg PO BID PRN (Reason: abdominal pain) 10 Days Qty: 20 0RF Maalox Advanced 1,000-60 mg tablet,chewable 1 tab PO TID PRN (Reason: abdominal pain) 7 Days Qty: 21 0RF ondansetron 4 mg tablet,disintegrating 4 mg PO TID PRN (Reason: nausea and vomiting) 4 Days Qty: 12 0RF No Action montelukast [Singulair] 10 mg tablet 10 mg PO DAILY Qty: 90 1RF citalopram [Celexa] 20 mg tablet 20 mg PO DAILY Qty: 30 2RF buspirone 15 mg tablet 15 mg PO BID Qty: 60 2RF cyclobenzaprine 7.5 mg tablet 7.5 mg PO TID PRN (Reason: muscle spasm) Qty: 14 0RF ivermectin 3 mg tablet 15 mg PO ONCE Qty: 10 0RF Rx Instructions: take 5 tabs now then repeat 5 tabs in 2 weeks docusate sodium 100 mg capsule 100 mg PO PRN 0RF levothyroxine 100 mcg capsule 100 mcg PO DAILY 0RF permethrin 5 % cream 1 applic topical .q 7 days Qty: 60 1RF Rx Instructions: Apply from neck down to feet. Leave on overnight and rinse in the morning. Repeat in 1 week gentamicin 0.3 % drops 1 drp ophthalmic (eye) TID 7 Days Qty: 5 0RF (DME) lancets [Accu-Chek Softclix Lancets] Misc See Rx Instructions .ROUTE .MEDSUPPLY Qty: 50 0RF Rx Instructions: ONE DAILY (DME) blood-glucose meter [Accu-Chek Leeann Plus Meter] Misc See Rx Instructions .ROUTE .MEDSUPPLY Qty: 1 0RF Rx Instructions: ONE TIME DAILY (DME) GLUCOMETER Qty: 1 0RF Rx Instructions: USE ONCE DAILY (DME) lancets [Accu-Chek Fastclix Lancet Drum] Misc See Rx Instructions .ROUTE .MEDSUPPLY Qty: 50 0RF Rx Instructions: 1 daily (DME) lancing device with lancets [Accu-Chek Soft Dev Lancets] Kit See Rx Instructions .ROUTE .MEDSUPPLY Qty: 100 2RF Rx Instructions: once daily (DME) pen needle, diabetic [BD Ultra-Fine Short Pen Needle] 31 gauge x 5/16 needle See Rx Instructions .ROUTE .MEDSUPPLY Qty: 100 2RF Rx Instructions: once daily simvastatin 20 mg tablet 20 mg PO DAILY Qty: 30 5RF (DME) Accu-Chek Leeann Plus test strp Strip See Rx Instructions .ROUTE .MEDSUPPLY Qty: 100 1RF Rx Instructions: ONE TIME DAILY liothyronine 5 mcg tablet 5 mcg PO DAILY 0RF paroxetine HCl 20 mg tablet 20 mg PO DAILY 0RF acetaminophen [Tylenol Extra Strength] 500 mg Tablet 1,000 mg PO PRN 0RF dicyclomine 20 mg tablet 20 mg PO QID Qty: 20 0RF ondansetron 4 mg tablet,disintegrating 4 mg PO Q8H PRN (Reason: nausea and vomiting) Qty: 20 0RF Carafate 1 gram tablet 1 g PO TID 84 Days Qty: 252 0RF Protonix 40 mg tablet,delayed release (DR/EC) 40 mg PO DAILY 30 Days Qty: 30 3RF Protonix 40 mg tablet,delayed release (DR/EC) 40 mg PO BID 10 Days Qty: 20 0RF azithromycin 250 mg tablet See Rx Instructions .ROUTE .COMPLEX Qty: 6 0RF Rx Instructions: For 250 mg dose pack: take 500 mg today (day 1), then 250 mg for 4 days (days 2-5) Discharge Orders: Discharge ED (Routine); Ordered 02/25/22 Ordered By: Bean Welch Discharge Diet: Advance as tolerated Discharge Activity: Increase activity as tolerated Patient Instructions: Acute Diarrhea (ED) Activity Restrictions/Additional Instructions: Please come back if you have any new abdominal pain, fever or chills, nausea or vomiting, diarrhea, blood in the stool, inability hold down liquid or solids, or any new concerning complaints. Coding Level of Care Code ED Licensed Massage Practitioner for Robyn Ruiz Exam Comprehensive
[2022-02-25] MEDS: famotidine 20 mg/2 mL INJ IVP (17:08)
[2022-02-25] MEDS: sodium chloride 0.9% 1,000 ML 999 ML IV (17:08)
[2022-02-25] MEDS: ondansetron 2 mg/ML SDV 2 mL 4 MG IVP (17:08)
[2022-02-25 17:12] LABS: Basophils % 0.6 %; Eosinophils # 0.1 10^3/uL (0.0-0.8); Eosinophils % 1.3 %; Hematocrit 42.9 % (37.0-47.0); Hemoglobin 14.2 g/dL (11.5-15.3); Lymphocytes # 1.9 10^3/uL (0.8-4.8); Lymphocytes % 27.9 %; Mean Corpuscular HGB Conc 33.1 g/dL (30.0-36.0); Mean Corpuscular Hemoglobin 29.8 pg (28.0-34.0); Mean Corpuscular Volume 90.1 fl (81-99); Mean Platelet Volume 9.1 fL (7.4-10.4); Monocytes # 0.4 10^3/uL (0.2-0.9); Monocytes % 6.4 %; Neutrophils # 4.38 10^3/uL (1.8-7.7); Neutrophils % 63.5 %; Nucleated Red Blood Cells % 0 %; Platelet Count 233 10^3/cmm (130-400); Red Blood Count 4.76 10^6/uL (4.1-5.3); Red Cell Distribution Width 12.6 % (12.1-15.1); White Blood Count 6.9 10^3/uL (4.0-10.0)
[2022-02-25 17:26] LABS: Add Urine Microscopic? NO; Charge for UA Resulting for Rev
[2022-02-25 17:35] LABS: Bilirubin Urine Neg (Negative); Blood Urine Neg (Negative); Glucose Urine UA Norm (Normal); Ketones Urine Negative (Negative); Leukocyte Esterase Urine Negative (Negative); Nitrate Urine Negative (Negative); Protein Urine Neg (Negative); Urine Appearance Clear (CLEAR); Urine Color Yellow (Yellow); Urobilinogen Urine Neg (Negative); pH Urine 7 (5-7)
[2022-02-25 17:39] LABS: Alanine Aminotransferase 21 U/L (0-33); Albumin Level 3.7 g/dL (3.5-5.2); Alkaline Phosphatase 73 IU/L (35-105); Anion Gap 13.8 (5-19); Aspartate Amino Transferase 18 U/L (0-32); Blood Urea Nitrogen 13 mg/dL (6-20); Calcium 9.4 mg/dL (8.5-10.5); Carbon Dioxide 27 mmol/L (22-29); Chloride 103 mmol/L (98-107); Globulin 3.7 g/dL (1.3-4.6); Glomerular Filtration Rate 76.2 mL/min (90-130); Glucose 85 mg/dL (65-115); Lipase 44 U/L (13-60); Osmolality Calculated 289 mOsm/kg (285-295); Potassium 3.8 mmol/L (3.5-5.1); Sodium 140 mmol/L (136-145); Total Bilirubin 0.3 mg/dL (0.15-1.2); Total Protein 7.4 g/dL (6.6-8.7)
[2022-02-25] MEDS: lidocaine 2% viscous 15 ML, aluminum-mag hydrox-simethicon 30 ML, sucralfate oral liq 1 GM PO (17:48)
[2022-02-25 18:03] LABS: HCG Qualitative Urine. Negative (Negative)
== END 2022-02-25 18:46 | disposition home or self-care (01) ==
PROVIDERS: Emergency Provider Emergency Medicine
DX: R11.2 Nausea with vomiting, unspecified (principal); R19.7 Diarrhea, unspecified; Z98.84 Bariatric surgery status; Z90.49 Acquired absence of other specified parts of digestive tract; Z90.710 Acquired absence of both cervix and uterus
CPT/HCPCS: 80053; 81003; 81025; 83690; 85025; 96361; 96374; 96375; 99283; J2405; J3490; J7030

== ENCOUNTER → 2022-02-27 09:31 | Outpatient (BNVA) | payer MEDICARE, MEDICAID, SELFPAY | PROVIDERS: Visit Provider Surgery | DX: Z98.84 Bariatric surgery status (principal) | CPT/HCPCS: 99213 ==

== ENCOUNTER 2022-03-10 11:10 | Emergency (ER) | payer MEDICARE, MEDICAID, SELFPAY ==
[2022-03-10 11:23] VITALS: BP 136/90; PULSE 64; RESP 16; TEMP 36.5; O2SAT 100; BMI 40.5
--- NOTE | 2022-03-10 11:41 | W.ED.WEAKNES ---
HPI - Weakness General: Chief complaint: Weakness Stated complaint: Low blood pressure, cant stay awake Time Seen by Provider: 03/10/22 11:39 History of Present Illness: Ms. Trujillo is a 51-year-old lady with complex past medical history presents to the emergency department due to generalized weakness and concern over blood pressure variation. She reports symptom onset last night subacute without specific provoking factor. Since that time she has been significantly fatigued and reports having difficulty staying awake. Apparently she presented to urgent care and they were worried that her blood pressure was lower than her typical though still well within the normal range as well as a change in her baseline heart rate. She denies specific infectious symptoms, chest pain, or other specific changes in health. Overall intensity symptoms is moderate. Course has persisted. No other specific changes in health, exacerbating, or alleviating factors identified. Onset (ago): hour(s) Duration: progressively worsening Severity: moderate Review of Systems General: Reports: 10 or more systems reviewed and unremarkable except in HPI and below PFSH ED PFSH: Medical History Acute serous otitis media of left ear Anxiety Borderline intellectual functioning Controlled type 2 diabetes mellitus, without long-term current use of insulin Depression Dizziness Dumping syndrome Dyslipidemia Enrolled in chronic care management Generalized anxiety disorder GERD (gastroesophageal reflux disease) Hypertension Hypothyroidism Nausea & vomiting Nausea & vomiting Obesity BHARAT (obstructive sleep apnea) Psychiatric care Seizure disorder Tinnitus Surgical History History of colonoscopy with polypectomy (~09/2018) History of esophagogastroduodenoscopy (EGD) (~09/2018) History of gastric bypass History of hysterectomy with oophorectomy History of laparoscopic cholecystectomy Family History Grandmother Cancer Father Lung disease Diabetes Denies family history of Anesthesia complication Bleeding disorder Social History Smoking and tobacco status: never smoked Quit status (tobacco): has quit using tobacco Second hand smoke exposure: No Smoking risk assessment/counseling performed?: No Alcohol intake: never Desire information about alcohol rehabilitation?: No Counseling given: No Desire information about substance/drug rehabilitation?: No Counseling given: No Adopted: No Caregiver/support person: Yes Lives independently: Yes Housing: House Marital status: Single Highest education level completed: High School Graduate service: No Current occupational status: employed 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 Current occupational exposures/hazards: No Pets and animals: Yes History of recent travel: No Sexually active: Yes Ania/Episcopalian: None Special ania needs: No Agree to transfusion: Yes Financial difficulty paying for basics: Not Very Hard Physical Exam Const: COMMON NORMALS: alert GENERAL APPEARANCE: cooperative and well developed NUTRITIONAL APPEARANCE: obese HENMT: COMMON NORMALS: normocephalic and atraumatic HEAD & SCALP: normocephalic and atraumatic Eye: COMMON NORMALS: conjunctivae normal CONJUNCTIVA: Yes conjunctivae normal SCLERA: sclerae normal Neck/C-Spine: COMMON NORMALS: supple GENERAL: Yes trachea midline Resp: COMMON NORMALS: clear to auscultation bilaterally EFFORT & INSPECTION: Yes able to speak in complete sentences AUSCULTATION: clear to auscultation bilaterally Cardio: COMMON NORMALS: regular rate and regular rhythm RATE: regular rate RHYTHM: regular rhythm GI: COMMON NORMALS: Soft to palpation PALPATION: Yes Soft to palpation and No Tenderness to palpation present (GI) PERCUSSION: normal to percussion Extremity: GENERAL: Yes normal exam except as noted and No edema Neuro: COMMON NORMALS: moves all extremities SENSORIUM/ORIENTATION: Yes alert and No Orientation impaired Psych: COMMON NORMALS: mental status grossly normal and Normal thought process present THOUGHT PROCESS: Normal thought process present Course ED course: - Patient was seen and evaluated by me at bedside - Patient placed on cardiac monitors, IV access obtained - Initial evaluation notable for exam as above - Labs personally interpreted by me - Labs notable for no significant metabolic or hematologic abnormality. Urinalysis with squamous epithelial contamination - Upon serial reexamination after treatment the patient was similar. She does have some bradycardia with no blood pressures maintained. Patient expresses significant concern regarding what appears to be normal variation in readings and blood pressure. She has not had hypotensive readings or hypertensive readings requiring intervention. Though this may be different than the patient's baseline I do not believe that there is indication for hospitalization or alarm related to this. - Based on patient history, evaluation, and testing as interpreted the most likely cause of the patient's condition is unclear - The results of ED evaluation were given to the patient including followup plan, and return precautions. - Patient discharged in satisfactory condition. Note: Click bubbles or prepopulated hall in note writing are used for assistance with data collection and billing and are inherently more limited than narrative and other text portions of this note. Please use narrative for additional clinical history and defer to narrative/free test for any case of contradictory information. If information appears in only free text or click bubble it should be considered present or absent as reported. Please contact note magazine writer for clarifications of clinical information or contradictory information. MDM is a brief summary, contradictory or erroneous seeming information should be clarified and full note should be reviewed. Vital Signs: Vital signs: Vital Signs Temperature 97.7 F 03/10/22 11:23 Pulse Rate 63 03/10/22 14:22 Respiratory Rate 16 03/10/22 14:22 Blood Pressure 132/82 03/10/22 14:22 Pulse Oximetry 97 03/10/22 14:22 MDM - Weakness Medical Decision Making 51-year-old lady with complex past medical history presenting to the emergency department due to concern over changes in her blood pressure and heart rate. Values remain in normal range and lower numbers at the patient describes are not concerning to the point of requiring inpatient evaluation. Satisfactory for outpatient management. Medical Records I reviewed the patient's medical records. Lab Data I reviewed the patient's lab results. : 03/10/22 12:10 03/10/22 12:26 Laboratory Results WBC 5.4 10^3/uL (4.0-10.0) 03/10/22 12:10 RBC 5.00 10^6/uL (4.1-5.3) 03/10/22 12:10 Hgb 14.9 g/dL (11.5-15.3) 03/10/22 12:10 Hct 45.2 % (37.0-47.0) 03/10/22 12:10 MCV 90.4 fl (81-99) 03/10/22 12:10 MCH 29.8 pg (28.0-34.0) 03/10/22 12:10 MCHC 33.0 g/dL (30.0-36.0) 03/10/22 12:10 RDW 13.1 % (12.1-15.1) 03/10/22 12:10 Plt Count 227 10^3/cmm (130-400) 03/10/22 12:10 MPV 9.4 fL (7.4-10.4) 03/10/22 12:10 Neut % (Auto) 61.5 % 03/10/22 12:10 Lymph % (Auto) 28.1 % 03/10/22 12:10 [place] % (Auto) 7.7 % 03/10/22 12:10 Eos % (Auto) 1.8 % 03/10/22 12:10 Baso % (Auto) 0.7 % 03/10/22 12:10 Neut # (Auto) 3.34 10^3/uL (1.8-7.7) 03/10/22 12:10 Lymph # (Auto) 1.5 10^3/uL (0.8-4.8) 03/10/22 12:10 [place] # (Auto) 0.4 10^3/uL (0.2-0.9) 03/10/22 12:10 Eos # (Auto) 0.1 10^3/uL (0.0-0.8) 03/10/22 12:10 Baso # (Auto) 0.0 10^3/uL (0.0-0.1) 03/10/22 12:10 Nucleated RBC % (auto) 0 % 03/10/22 12:10 Nucleated RBCs # 0.0 /100WBC 03/10/22 12:10 Sodium 141 mmol/L (136-145) 03/10/22 12:26 Potassium 3.7 mmol/L (3.5-5.1) 03/10/22 12:26 Chloride 108 mmol/L (98-107) H 03/10/22 12:26 Carbon Dioxide 25 mmol/L (22-29) 03/10/22 12:26 Anion Gap 11.7 (5-19) 03/10/22 12:26 BUN 12 mg/dL (6-20) 03/10/22 12:26 Creatinine 0.7 mg/dL (0.5-0.9) 03/10/22 12:26 GFR Calculation 88.9 mL/min (90-130) L 03/10/22 12:26 Glucose 95 mg/dL (65-115) 03/10/22 12:26 Calculated Osmolality 292 mOsm/kg (285-295) 03/10/22 12:26 Calcium 9.3 mg/dL (8.5-10.5) 03/10/22 12:26 TSH 1.36 uIU/mL (0.27-4.20) 03/10/22 12:26 Urine Color Yellow (Yellow) 03/10/22 12:02 Urine Appearance Cloudy (CLEAR) 03/10/22 12:02 Urine pH 5 (5-7) 03/10/22 12:02 Ur Specific [place] 1.020 (1.005-1.030) 03/10/22 12:02 Urine Protein Neg (Negative) 03/10/22 12:02 Urine Glucose (UA) Norm (Normal) 03/10/22 12:02 Urine Ketones Negative (Negative) 03/10/22 12:02 Urine Blood Trace (Negative) H 03/10/22 12:02 Urine Nitrate Negative (Negative) 03/10/22 12:02 Urine Bilirubin Neg (Negative) 03/10/22 12:02 Urine Urobilinogen 1 mg/dL (Negative) H 03/10/22 12:02 Ur Leukocyte Esterase Trace (Negative) H 03/10/22 12:02 Urine RBC None /hpf (0-2) 03/10/22 12:02 Urine WBC 0-4 /hpf (0-5) H 03/10/22 12:02 Ur Squamous Epith Cells 5-10 /hpf (0-5) H 03/10/22 12:02 Calcium Oxalate Crystal 5-10 /hpf H 03/10/22 12:02 Amorphous Sediment Not Reportable 03/10/22 12:02 Urine Bacteria 4+ /hpf (NONE) H 03/10/22 12:02 Urine Mucus Trace /hpf 03/10/22 12:02 Discharge Plan Discharge Patient Disposition: Home Clinical Impression: Malaise and fatigue, Bradycardia Condition: Stable Prescriptions: No Action montelukast [Singulair] 10 mg tablet 10 mg PO DAILY Qty: 90 1RF docusate sodium 100 mg capsule 100 mg PO PRN 0RF levothyroxine 100 mcg capsule 112 mcg PO DAILY 0RF pantoprazole [Protonix] 40 mg tablet,delayed release (DR/EC) 40 mg PO DAILY 0RF Label Comments: pt no longer taking buspirone 15 mg tablet 15 mg PO BID Qty: 60 2RF liothyronine 5 mcg tablet 5 mcg PO DAILY 0RF paroxetine HCl 20 mg tablet 20 mg PO DAILY 0RF acetaminophen [Tylenol Extra Strength] 500 mg Tablet 1,000 mg PO PRN 0RF ondansetron 4 mg tablet,disintegrating 4 mg PO Q8H PRN (Reason: nausea and vomiting) Qty: 20 0RF Carafate 1 gram tablet 1 g PO TID 84 Days Qty: 252 0RF Discharge Orders: Discharge ED (Routine); Ordered 03/10/22 Ordered By: Solis Francois Discharge Diet: Usual diet Discharge Activity: Increase activity as tolerated Patient Instructions: Weakness (ED), Fatigue (ED) Activity Restrictions/Additional Instructions: Thank you for visiting the emergency department. You were seen and evaluated due to somnolence and concern over blood pressure and heart rate changes. The exact cause of your symptoms is unclear, no significant abnormality was identified on laboratory studies to explain symptoms. As mentioned your urinalysis will be sent for culture and you will be notified if you need treatment for a urinary tract infection. Please follow-up with your primary care provider. Please return to the emergency department for worsening symptoms or anything else that you are concerned about a feel needs emergency department evaluation. Coding Level of Care Code ED Bottle Capping Machine Operator for Robyn Ruiz
[2022-03-10 11:52] VITALS: BP 141/105; PULSE 62; RESP 16; O2SAT 100
[2022-03-10 11:58] VITALS: BP 126/72; PULSE 62; RESP 16; O2SAT 100
--- NOTE | 2022-03-10 12:00 | ECG_ITS ---
[facility] Test Date: 2022-03-10 Pat Name: Nayla Trujillo Department: Room: Gender: Female Donor Services Specialist: : 1970 Requested By: Solis Francois Order Number: [id number] Henrry MD: Jonathan Read M.D. Measurements Intervals [place] Rate: 54 P: 18 MO: 180 QRS: 23 QRSD: 107 T: -1 QT: 446 QTc: 426 Interpretive Statements SINUS BRADYCARDIA LOW QRS VOLTAGE IN PRECORDIAL LEADS [QRS DEFLECTION < 1.0 mV IN CHEST LEADS] Compared to ECG 02/19/2022 21:56:13 Sinus rhythm no longer present Electronically Signed On 03-10-2022 16:51:07 CDT by Jonathan Read M.D. [email or web address]
[2022-03-10 12:15] VITALS: PULSE 62; RESP 16; O2SAT 100
[2022-03-10 12:17] LABS: Basophils % 0.7 %; Eosinophils # 0.1 10^3/uL (0.0-0.8); Eosinophils % 1.8 %; Hematocrit 45.2 % (37.0-47.0); Hemoglobin 14.9 g/dL (11.5-15.3); Lymphocytes # 1.5 10^3/uL (0.8-4.8); Lymphocytes % 28.1 %; Mean Corpuscular Hemoglobin 29.8 pg (28.0-34.0); Mean Corpuscular Volume 90.4 fl (81-99); Mean Platelet Volume 9.4 fL (7.4-10.4); Monocytes # 0.4 10^3/uL (0.2-0.9); Monocytes % 7.7 %; Neutrophils # 3.34 10^3/uL (1.8-7.7); Neutrophils % 61.5 %; Nucleated Red Blood Cells % 0 %; Platelet Count 227 10^3/cmm (130-400); Red Cell Distribution Width 13.1 % (12.1-15.1); White Blood Count 5.4 10^3/uL (4.0-10.0)
[2022-03-10 12:56] LABS: Add Urine Microscopic? YES; Bilirubin Urine Neg (Negative); Blood Urine Trace (Negative); Glucose Urine UA Norm (Normal); Ketones Urine Negative (Negative); Leukocyte Esterase Urine Trace (Negative); Nitrate Urine Negative (Negative); Protein Urine Neg (Negative); Urine Appearance Cloudy (CLEAR); Urine Color Yellow (Yellow); Urobilinogen Urine 1 mg/dL (Negative); pH Urine 5 (5-7)
[2022-03-10 12:58] LABS: Bacteria Urine 4+ /hpf; Mucus Urine TRACE /hpf; WBC Urine 0-4 /hpf (0-5)
[2022-03-10 12:59] LABS: Add Urine Culture? Yes
[2022-03-10 13:16] LABS: Anion Gap 11.7 (5-19); Blood Urea Nitrogen 12 mg/dL (6-20); Calcium 9.3 mg/dL (8.5-10.5); Carbon Dioxide 25 mmol/L (22-29); Chloride 108 mmol/L (98-107); Glomerular Filtration Rate 88.9 mL/min (90-130); Glucose 95 mg/dL (65-115); Osmolality Calculated 292 mOsm/kg (285-295); Potassium 3.7 mmol/L (3.5-5.1); Sodium 141 mmol/L (136-145); Thyroid Stimulating Hormone 1.36 uIU/mL (0.27-4.20)
[2022-03-10 14:22] VITALS: BP 132/82; PULSE 63; RESP 16; O2SAT 97
== END 2022-03-10 14:24 | disposition home or self-care (01) ==
PROVIDERS: Emergency Provider Emergency Medicine
DX: R00.1 Bradycardia, unspecified (principal); R53.81 Other malaise; I10 Essential (primary) hypertension; E03.9 Hypothyroidism, unspecified; E11.9 Type 2 diabetes mellitus without complications; Z79.899 Other long term (current) drug therapy
CPT/HCPCS: 80048; 81001; 84443; 85025; 87077; 87086; 87186; 93005; 99284

== ENCOUNTER 2022-03-13 06:00 | Outpatient (RCR) | payer MEDICARE, MEDICAID, SELFPAY | END 2022-04-09 23:59 | disposition home or self-care (01) | LOC: SPT 06:00 | PROVIDERS: Referring Provider Orthopaedic Surgery; Visit Provider Orthopaedic Surgery | DX: F41.1 Generalized anxiety disorder (principal); M62.838 Other muscle spasm; R41.83 Borderline intellectual functioning | CPT/HCPCS: 97110; 97161; 99214 ==

== ENCOUNTER 2022-03-14 20:00 | Outpatient (CLI) | payer MEDICARE, MEDICAID, SELFPAY | END 2022-03-14 20:01 | disposition home or self-care (01) | LOC: SLEEP 03-15 04:56 | PROVIDERS: Visit Provider Nurse Practitioner Family | DX: G47.419 Narcolepsy without cataplexy (principal) | CPT/HCPCS: 95810 ==

== ENCOUNTER 2022-03-21 22:35 | Emergency (ER) | payer MEDICARE, MEDICAID, SELFPAY ==
[2022-03-21 23:15] VITALS: BP 150/88; PULSE 71; RESP 18; TEMP 36.6; O2SAT 100; BMI 40.5
--- NOTE | 2022-03-21 23:52 | ED_ITS ---
HPI - Dizziness General: Chief Complaint: Dizziness Stated Complaint: dizzy, L ear pain Time Seen by Provider: 03/21/22 23:52 History of Present Illness: HPI Narrative: 51-year-old female comes in today with complaints of difficulty hearing out of her left ear, and dizziness. On exam patient appears nontoxic. Patient appears in no pain. Patient has a history of mental health disorder, hypothyroidism, GERD. Patient is morbidly obese. Associated symptoms: Reports change in hearing; Denies chest pain Review of Systems General: Reports: 10 or more systems reviewed and unremarkable except in HPI and below Const: Denies: fever(s) ENMT: Reports: change in hearing and disequilibrium Card: Denies: chest pain Resp: Denies: dyspnea Musc: Denies: neck pain Neuro: Reports: dizziness PFSH ED PFSH: Medical History Acute serous otitis media of left ear Anxiety Borderline intellectual functioning Controlled type 2 diabetes mellitus, without long-term current use of insulin Depression Dizziness Dumping syndrome Dyslipidemia Enrolled in chronic care management Generalized anxiety disorder GERD (gastroesophageal reflux disease) Hypertension Hypothyroidism Nausea & vomiting Nausea & vomiting Obesity BHARAT (obstructive sleep apnea) Psychiatric care Seizure disorder Tinnitus Surgical History History of colonoscopy with polypectomy (~09/2018) History of esophagogastroduodenoscopy (EGD) (~09/2018) History of gastric bypass History of hysterectomy with oophorectomy History of laparoscopic cholecystectomy Family History Grandmother Cancer Father Lung disease Diabetes Denies family history of Anesthesia complication Bleeding disorder Social History Smoking and tobacco status: never smoked Quit status (tobacco): has quit using tobacco Second hand smoke exposure: No Smoking risk assessment/counseling performed?: No Alcohol intake: never Desire information about alcohol rehabilitation?: No Counseling given: No Desire information about substance/drug rehabilitation?: No Counseling given: No Adopted: No Caregiver/support person: Yes Lives independently: Yes Housing: House Marital status: Single Highest education level completed: High School Graduate service: No Current occupational status: employed 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 Current occupational exposures/hazards: No Pets and animals: Yes History of recent travel: No Sexually active: Yes Ania/Baptism: None Special ania needs: No Agree to transfusion: Yes Financial difficulty paying for basics: Not Very Hard Physical Exam Const: COMMON NORMALS: alert HENMT: COMMON NORMALS: normocephalic, TM's normal bilaterally and Normal external nose present HEAD & SCALP: normocephalic NOSE: Normal external nose present EXTERNAL AUDITORY CANAL: Abnormal EAC present EAC laterality: left Details: excessive cerumen TYMPANIC MEMBRANE: TM's normal bilaterally THROAT: posterior oropharynx normal Neck/C-Spine: COMMON NORMALS: full ROM Resp: COMMON NORMALS: normal respiratory effort Cardio: COMMON NORMALS: regular rate RATE: regular rate Extremity: COMMON NORMALS: no clubbing, cyanosis or edema Neuro: SENSORIUM/ORIENTATION: Yes alert Skin: COMMON NORMALS: no rashes or lesions noted GENERAL SKIN EXAM: no rashes or lesions noted Course Vital Signs: Vital signs: Vital Signs Temperature 97.8 F 03/21/22 23:15 Pulse Rate 71 03/21/22 23:15 Respiratory Rate 18 03/21/22 23:15 Blood Pressure 150/88 03/21/22 23:15 Pulse Oximetry 100 03/21/22 23:15 [facility] - Dizziness Medical Decision Making 51-year-old female comes in today with difficulty hearing out of the left ear and dizziness. Patient reports symptoms for about 1 week now. Patient been trying to get into a ear nose and throat but cannot be seen until the . Patient appears nontoxic. Patient appears no acute distress. Bilateral tympanic membranes are intact. Patient does have some excessive cerumen in the left ear. Tympanic membrane appears dull to left. Vital signs are normal. Differential diagnosis includes labyrinthitis, cerumen impaction, malingering. No signs of serious illness or injury was noted. Patient was recommended to try Flonase and Zyrtec by urgent care yesterday, we will go ahead and give 1 dose of dexamethasone IM to see if we can get better results. We will also prescribe Pepcid and some meclizine to help further with dizziness. Patient should continue with her appointment with ear nose and throat. Discharge Plan Discharge Patient Disposition: Home Clinical Impression: Acute vestibular neuronitis Qualifiers: Laterality: left Qualified Code(s): H81.22 - Vestibular neuronitis, left ear Condition: Stable Prescriptions: New meclizine 25 mg tablet 25 mg PO TID PRN (Reason: dizziness) Qty: 14 0RF No Action montelukast [Singulair] 10 mg tablet 10 mg PO DAILY Qty: 90 1RF docusate sodium 100 mg capsule 100 mg PO PRN 0RF levothyroxine 100 mcg capsule 112 mcg PO DAILY 0RF pantoprazole [Protonix] 40 mg tablet,delayed release (DR/EC) 40 mg PO DAILY 0RF Label Comments: pt no longer taking buspirone 15 mg tablet 15 mg PO BID Qty: 60 2RF liothyronine 5 mcg tablet 5 mcg PO DAILY 0RF paroxetine HCl 20 mg tablet 20 mg PO DAILY 0RF acetaminophen [Tylenol Extra Strength] 500 mg Tablet 1,000 mg PO PRN 0RF ondansetron 4 mg tablet,disintegrating 4 mg PO Q8H PRN (Reason: nausea and vomiting) Qty: 20 0RF Carafate 1 gram tablet 1 g PO TID 84 Days Qty: 252 0RF Discharge Orders: Discharge ED (Routine); Ordered 03/22/22 Ordered By: Ash Burton Discharge Diet: Usual diet Discharge Activity: Increase activity as tolerated Patient Instructions: Labyrinthitis (ED), Opioid Safety Activity Restrictions/Additional Instructions: Home and rest. Continue with routine care. Drink plenty of water with medication. Follow-up with gear shaper for further evaluation of hearing and dizziness. Return to ER for new concerns. Coding Level of Care Code ED Window Shade Installer for Robyn Ruiz
[2022-03-22] MEDS: meclizine 25 mg tablet PO (00:30)
[2022-03-22] MEDS: dexamethasone 10 mg/mL INJ IM (00:30)
[2022-03-22 00:52] VITALS: BP 118/82; PULSE 80; RESP 18; O2SAT 98
== END 2022-03-22 00:53 | disposition home or self-care (01) ==
PROVIDERS: Emergency Provider Nurse Practitioner Family
DX: H81.22 Vestibular neuronitis, left ear (principal)
CPT/HCPCS: 96372; 99283; J1100; J8597

== ENCOUNTER → 2022-03-25 07:09 | Outpatient (BNVA) | payer MEDICARE, MEDICAID, SELFPAY | PROVIDERS: Visit Provider Otolaryngology | DX: R26.81 Unsteadiness on feet (principal); R29.6 Repeated falls; H91.92 Unspecified hearing loss, left ear; H93.12 Tinnitus, left ear; E66.01 Morbid (severe) obesity due to excess calories; Z68.41 Body mass index [BMI] 40.0-44.9, adult | CPT/HCPCS: 99204 ==

== ENCOUNTER 2022-03-30 19:35 | Emergency (ER) | payer MEDICARE, MEDICAID, SELFPAY ==
[2022-03-30 19:37] VITALS: BP 132/84; PULSE 75; RESP 18; TEMP 36.7; O2SAT 98
--- NOTE | 2022-03-30 22:07 | XRR_ITS ---
PROCEDURE INFORMATION: Exam: XR Chest Exam date and time: 03/30/2022 10:19 PM Age: 52 years old Clinical indication: Cough TECHNIQUE: Imaging protocol: XR of the chest. Views: 1 view. COMPARISON: CR (CHEST, ) 02/19/2022 10:56 PM FINDINGS: Lungs: Unremarkable. No consolidation. Pleural spaces: Unremarkable. No pleural effusion. No pneumothorax. Heart/Mediastinum: Unremarkable. No cardiomegaly. Bones/joints: Unremarkable. XR/XR chest 1V portable [id number] IMPRESSION: No acute findings.
[2022-03-30 22:48] LABS: Add Urine Microscopic? NO; Charge for UA Resulting for Rev
[2022-03-30 22:50] LABS: Basophils # 0.1 10^3/uL (0.0-0.1); Basophils % 0.7 %; Eosinophils # 0.2 10^3/uL (0.0-0.8); Eosinophils % 2.2 %; Hematocrit 44.3 % (37.0-47.0); Hemoglobin 14.5 g/dL (11.5-15.3); Lymphocytes # 1.6 10^3/uL (0.8-4.8); Lymphocytes % 24.2 %; Mean Corpuscular HGB Conc 32.7 g/dL (30.0-36.0); Mean Corpuscular Hemoglobin 29.8 pg (28.0-34.0); Mean Platelet Volume 9.2 fL (7.4-10.4); Monocytes # 0.6 10^3/uL (0.2-0.9); Monocytes % 8.6 %; Neutrophils # 4.31 10^3/uL (1.8-7.7); Nucleated Red Blood Cells % 0 %; Platelet Count 223 10^3/cmm (130-400); Red Blood Count 4.87 10^6/uL (4.1-5.3); Red Cell Distribution Width 12.3 % (12.1-15.1); White Blood Count 6.7 10^3/uL (4.0-10.0)
[2022-03-30 23:07] LABS: Bilirubin Urine Neg (Negative); Blood Urine Neg (Negative); Glucose Urine UA Norm (Normal); Ketones Urine Negative (Negative); Leukocyte Esterase Urine Negative (Negative); Nitrate Urine Negative (Negative); Protein Urine Neg (Negative); Urine Appearance Clear (CLEAR); Urine Color Yellow (Yellow); Urobilinogen Urine Norm (Negative); pH Urine 5 (5-7)
[2022-03-30 23:09] LABS: Alanine Aminotransferase 21 U/L (0-33); Alkaline Phosphatase 87 IU/L (35-105); Aspartate Amino Transferase 22 U/L (0-32); Blood Urea Nitrogen 13 mg/dL (6-20); Calcium 9.2 mg/dL (8.5-10.5); Carbon Dioxide 27 mmol/L (22-29); Chloride 106 mmol/L (98-107); Globulin 3.6 g/dL (1.3-4.6); Glomerular Filtration Rate 88.6 mL/min (90-130); Glucose 104 mg/dL (65-115); Lipase 55 U/L (13-60); Osmolality Calculated 294 mOsm/kg (285-295); Sodium 142 mmol/L (136-145); Total Bilirubin 0.2 mg/dL (0.15-1.2); Total Protein 7.6 g/dL (6.6-8.7)
[2022-03-30 23:11] LABS: Influenza A by IFA Negative (Negative); Influenza B by IFA Negative (Negative)
--- NOTE | 2022-03-30 23:31 | ED_ITS ---
HPI - General Adult General: Chief complaint: General Medical Stated complaint: N/V, cough Time Seen by Provider: 03/30/22 21:32 History of Present Illness: Patient is a 52-year-old female who comes to the ED with a cough. She has been having a cough now for the past 4 days. She bennett cribes the cough is dry and she does not cough up any phlegm. She says she has been coughing so much that today she had an episode of posttussive emesis. Denies any sick contacts. Denies any other symptoms such as fever, chills, body aches, shortness of breath, chest pain, sore throat, nasal congestion drainage, nausea, abdominal pain, bladder or bowel symptoms. Associated symptoms: Reports vomiting (Posttussive emesis); Deny chest pain, dyspnea, headache(s), nausea, rash or palpitations Review of Systems Const: Denies: fever(s), chills, body aches or fatigue Eyes: Denies: change in vision or eye discomfort ENMT: Denies: throat pain, odynophagia, nasal discharge or nasal congestion Card: Denies: chest pain, palpitations, edema, swelling of feet/ankles, dyspnea on exertion or orthopnea Resp: Reports: non-productive cough; Denies: dyspnea or productive cough GI: Reports: vomiting (Posttussive emesis); Denies: abdominal pain, nausea, diarrhea, constipation or hematochezia : Denies: flank pain, dysuria or hematuria Musc: Denies: neck pain, back pain or extremity swelling Skin/Breast: Denies: rash or new lesions Neuro: Denies: headache(s), numbness in extremities or weakness in extremities PFSH ED PFSH: Medical History Acute serous otitis media of left ear Anxiety Borderline intellectual functioning Controlled type 2 diabetes mellitus, without long-term current use of insulin Depression Dizziness Dumping syndrome Dyslipidemia Enrolled in chronic care management Generalized anxiety disorder GERD (gastroesophageal reflux disease) Hypertension Hypothyroidism Nausea & vomiting Nausea & vomiting Obesity BHARAT (obstructive sleep apnea) Psychiatric care Seizure disorder Tinnitus Surgical History History of colonoscopy with polypectomy (~09/2018) History of esophagogastroduodenoscopy (EGD) (~09/2018) History of gastric bypass 2020- chidi- [facility] History of hysterectomy with oophorectomy History of laparoscopic cholecystectomy Family History Grandmother Cancer Father Lung disease Diabetes Denies family history of Anesthesia complication Bleeding disorder Social History Smoking and tobacco status: never smoked Quit status (tobacco): has quit using tobacco Second hand smoke exposure: No Smoking risk assessment/counseling performed?: No Alcohol intake: never Desire information about alcohol rehabilitation?: No Counseling given: No Desire information about substance/drug rehabilitation?: No Counseling given: No Adopted: No Caregiver/support person: Yes Lives independently: Yes Housing: House Marital status: Single Highest education level completed: High School Graduate service: No Current occupational status: employed 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 Current occupational exposures/hazards: No Pets and animals: Yes History of recent travel: No Sexually active: Yes Ania/Anabaptist: None Special ania needs: No Agree to transfusion: Yes Financial difficulty paying for basics: Not Very Hard Physical Exam Const: COMMON NORMALS: no acute distress, patient oriented x3 and alert GENERAL APPEARANCE: cooperative and comfortable HENMT: COMMON NORMALS: normocephalic HEAD & SCALP: normocephalic MOUTH: Normal oral and palatal mucosa present THROAT: posterior oropharynx normal and uvula midline Neck/C-Spine: COMMON NORMALS: supple GENERAL: Yes normal visual inspection Resp: COMMON NORMALS: normal respiratory effort, No retractions, No use of accessory muscles and clear to auscultation bilaterally AUSCULTATION: clear to auscultation bilaterally Cardio: COMMON NORMALS: regular rate, regular rhythm, S1 normal heart sound present, S2 normal heart sound present, No gallops present (Cardio), No clicks present (Cardio), No murmurs present (Cardio) and Peripheral pulses 2+ througho ut RATE: regular rate RHYTHM: regular rhythm HEART SOUNDS: S1 normal heart sound present and S2 normal heart sound present PERIPHERAL PULSES: Peripheral pulses 2+ throughout GI: COMMON NORMALS: Normal to inspection, nondistended, normoactive bowel sounds present, Soft to palpation, non-tender and no masses PALPATION: Yes Soft to palpation : COMMON NORMALS: Yes no CVA tenderness BLADDER/KIDNEY EXAM: Yes no CVA tenderness Back/Pelvis: COMMON NORMALS: no CVA tenderness Extremity: COMMON NORMALS: normal to inspection Neuro: COMMON NORMALS: patient oriented x3 and moves all extremities SENSORIUM/ORIENTATION: Yes alert Skin: GENERAL SKIN EXAM: dry skin Course Vital Signs: Vital signs: Vital Signs Temperature 98.1 F 03/31/22 00:12 Pulse Rate 72 03/31/22 00:12 Respiratory Rate 20 H 03/31/22 00:12 Blood Pressure 129/79 03/31/22 00:12 Pulse Oximetry 97 03/31/22 00:12 [facility] - General Adult Medical Decision Making Patient is a 52-year-old female comes to the ED with dry cough. Symptoms have been going on now for 4 days. She had an episode of posttussive emesis today. Denies any fevers, other upper respiratory symptoms, chest pain, shortness of breath, abdominal pain, nausea, bladder or bowel symptoms. Vitals are stable. Patient appears nontoxic and in no acute distress. Exam is benign. Labs are unremarkable and chest x-ray shows no acute findings. Influenza and COVID were both negative. Patient diagnosed with a cough and was given a dose of Tessalon Perles here in the ED and discharged with a prescription for Tessalon Perles. She was told to follow-up with her PCP in a week for reevaluation. Return to ED precautions given. Patient is to agree with plan. Lab Data I reviewed the patient's lab results. : 03/30/22 22:43 03/30/22 22:43 Radiology Impressions Chest X-Ray 03/30/22 22:07 IMPRESSION: No acute findings. Laboratory Results WBC 6.7 10^3/uL (4.0-10.0) 03/30/22 22:43 RBC 4.87 10^6/uL (4.1-5.3) 03/30/22 22:43 Hgb 14.5 g/dL (11.5-15.3) 03/30/22 22:43 Hct 44.3 % (37.0-47.0) 03/30/22 22:43 MCV 91.0 fl (81-99) 03/30/22 22:43 MCH 29.8 pg (28.0-34.0) 03/30/22 22:43 MCHC 32.7 g/dL (30.0-36.0) 03/30/22 22:43 RDW 12.3 % (12.1-15.1) 03/30/22 22:43 Plt Count 223 10^3/cmm (130-400) 03/30/22 22:43 MPV 9.2 fL (7.4-10.4) 03/30/22 22:43 Neut % (Auto) 64.0 % 03/30/22 22:43 Lymph % (Auto) 24.2 % 03/30/22 22:43 [place] % (Auto) 8.6 % 03/30/22 22:43 Eos % (Auto) 2.2 % 03/30/22 22:43 Baso % (Auto) 0.7 % 03/30/22 22:43 Neut # (Auto) 4.31 10^3/uL (1.8-7.7) 03/30/22 22:43 Lymph # (Auto) 1.6 10^3/uL (0.8-4.8) 03/30/22 22:43 [place] # (Auto) 0.6 10^3/uL (0.2-0.9) 03/30/22 22:43 Eos # (Auto) 0.2 10^3/uL (0.0-0.8) 03/30/22 22:43 Baso # (Auto) 0.1 10^3/uL (0.0-0.1) 03/30/22 22:43 Nucleated RBC % (auto) 0 % 03/30/22 22:43 Nucleated RBCs # 0.0 /100WBC 03/30/22 22:43 Sodium 142 mmol/L (136-145) 03/30/22 22:43 Potassium 4.0 mmol/L (3.5-5.1) 03/30/22 22:43 Chloride 106 mmol/L (98-107) 03/30/22 22:43 Carbon Dioxide 27 mmol/L (22-29) 03/30/22 22:43 Anion Gap 13.0 (5-19) 03/30/22 22:43 BUN 13 mg/dL (6-20) 03/30/22 22:43 Creatinine 0.7 mg/dL (0.5-0.9) 03/30/22 22:43 GFR Calculation 88.6 mL/min (90-130) L 03/30/22 22:43 Glucose 104 mg/dL (65-115) 03/30/22 22:43 Calculated Osmolality 294 mOsm/kg (285-295) 03/30/22 22:43 Calcium 9.2 mg/dL (8.5-10.5) 03/30/22 22:43 Total Bilirubin 0.2 mg/dL (0.15-1.2) 03/30/22 22:43 AST 22 U/L (0-32) 03/30/22 22:43 ALT 21 U/L (0-33) 03/30/22 22:43 Alkaline Phosphatase 87 IU/L (35-105) 03/30/22 22:43 Total Protein 7.6 g/dL (6.6-8.7) 03/30/22 22:43 Albumin 4.0 g/dL (3.5-5.2) 03/30/22 22:43 Globulin 3.6 g/dL (1.3-4.6) 03/30/22 22:43 Lipase 55 U/L (13-60) 03/30/22 22:43 Urine Color Yellow (Yellow) 03/30/22 22:43 Urine Appearance Clear (CLEAR) 03/30/22 22:43 Urine pH 5 (5-7) 03/30/22 22:43 Ur Specific [place] 1.020 (1.005-1.030) 03/30/22 22:43 Urine Protein Neg (Negative) 03/30/22 22:43 Urine Glucose (UA) Norm (Normal) 03/30/22 22:43 Urine Ketones Negative (Negative) 03/30/22 22:43 Urine Blood Neg (Negative) 03/30/22 22:43 Urine Nitrate Negative (Negative) 03/30/22 22:43 Urine Bilirubin Neg (Negative) 03/30/22 22:43 Urine Urobilinogen Norm mg/dL (Negative) 03/30/22 22:43 Ur Leukocyte Esterase Negative (Negative) 03/30/22 22:43 Coronavirus 229E (PCR) Not detected (NOT DETECT) 03/30/22 22:43 Influenza Type A Ag Negative (Negative) 03/30/22 22:43 Influenza Type B Ag Negative (Negative) 03/30/22 22:43 SARS-CoV-2 (PCR) Not detected (NOT DETECT) 03/30/22 22:43 Discharge Plan Discharge Patient Disposition: Home Clinical Impression: Cough Condition: Stable Prescriptions: New benzonatate 100 mg capsule 100 mg PO TID PRN (Reason: cough) Qty: 20 0RF No Action montelukast [Singulair] 10 mg tablet 10 mg PO DAILY Qty: 90 1RF docusate sodium 100 mg capsule 100 mg PO PRN 0RF levothyroxine 100 mcg capsule 112 mcg PO DAILY 0RF triamcinolone acetonide 0.1 % ointment 1 applic topical BID Qty: 80 2RF Rx Instructions: Apply to affected area no more than 2 weeks per month. Not for face pantoprazole [Protonix] 40 mg tablet,delayed release (DR/EC) 40 mg PO DAILY 0RF Label Comments: pt no longer taking buspirone 15 mg tablet 15 mg PO BID Qty: 60 2RF liothyronine 5 mcg tablet 5 mcg PO DAILY 0RF paroxetine HCl 20 mg tablet 20 mg PO DAILY 0RF acetaminophen [Tylenol Extra Strength] 500 mg Tablet 1,000 mg PO PRN 0RF ondansetron 4 mg tablet,disintegrating 4 mg PO Q8H PRN (Reason: nausea and vomiting) Qty: 20 0RF Carafate 1 gram tablet 1 g PO TID 84 Days Qty: 252 0RF meclizine 25 mg tablet 25 mg PO TID PRN (Reason: dizziness) Qty: 14 0RF Discharge Orders: Discharge ED (Routine); Ordered 03/30/22 Ordered By: Khris Craig Discharge Diet: Regular Discharge Activity: Resume usual activity Patient Instructions: Acute Cough (ED) Activity Restrictions/Additional Instructions: Follow-up with medical provider as directed in the next 5 to 7 days reevaluation. COVID test is pending and results should be back by tomorrow morning. Call [facility] tomorrow morning to get COVID test results. Take medications as prescribed. Drink plenty fluids and stay hydrated. Return to the ER or your medical provider if condition worsens. Please read and understand discharge instructions. Thank you for choosing [facility] for your healthcare needs today. Please realize this is an emergency room and that we are providing you with a medical screening exam and this may not be complete and all inclusive of all the testing and or work up that you may need to determine your ailment or severity of your illness. It is very important that you follow up as instructed or that you return to the Emergency Department should you have concerns or if your condition changes or worsens in any way. Coding Level of Care Code ED Roving Hauler for Robyn Ruiz Exam Comprehensive
[2022-03-30] MEDS: benzonatate 100 mg Capsule PO (23:43)
[2022-03-31 00:12] VITALS: BP 129/79; PULSE 72; RESP 20; TEMP 36.7; O2SAT 97
[2022-03-31 00:39] LABS: Adenovirus Not Detected (NOT DETECT); Chlamydia Pneumoniae Not Detected (NOT DETECT); Coronavirus 229E,HKU1,NL63,OC4 Not Detected (NOT DETECT); Human Metapneumovirus Not Detected (NOT DETECT); Human Rhinovirus/Enterovirus Not Detected (NOT DETECT); Influenza A Not Detected (NOT DETECT); Influenza A H1 Not Detected (NOT DETECT); Influenza A H1-2009 Not Detected (NOT DETECT); Influenza A H3 Not Detected (NOT DETECT); Influenza B Not Detected (NOT DETECT); Mycoplasma Pneumoniae Not Detected (NOT DETECT); Parainfluenza Virus Type 1 Not Detected (NOT DETECT); Parainfluenza Virus Type 2 Not Detected (NOT DETECT); Parainfluenza Virus Type 3 Not Detected (NOT DETECT); Parainfluenza Virus Type 4 Not Detected (NOT DETECT); Respiratory Syncytial Virus A Not Detected (NOT DETECT); Respiratory Syncytial Virus B Not Detected (NOT DETECT); SARS-COV-2 Not Detected (NOT DETECT)
== END 2022-03-31 00:14 | disposition home or self-care (01) ==
PROVIDERS: Emergency Provider Physician Assistant
DX: R05.9 Cough, unspecified (principal); R11.2 Nausea with vomiting, unspecified; I10 Essential (primary) hypertension; E11.9 Type 2 diabetes mellitus without complications; E78.5 Hyperlipidemia, unspecified; E03.9 Hypothyroidism, unspecified; E66.9 Obesity, unspecified; Z68.41 Body mass index [BMI] 40.0-44.9, adult
CPT/HCPCS: 71045; 80053; 81003; 83690; 85025; 87635; 87804; 99283

== ENCOUNTER 2022-04-03 17:54 | Emergency (ER) | payer MEDICARE, MEDICAID, SELFPAY ==
[2022-04-03 18:25] VITALS: BP 135/81; PULSE 80; RESP 18; TEMP 36.8; O2SAT 100; BMI 40.8
--- NOTE | 2022-04-03 18:33 | W.ED.ANXIETY ---
HPI - Anxiety General: Chief Complaint: Anxiety Stated Complaint: anxiety needs pills Time Seen by Provider: 04/03/22 18:32 History of Present Illness: 52-year-old female comes in today with complaints of acute anxiety. Patient had devastating news today and which she lost her niece and her niece's 2 children in a automobile accident. Patient reports that she is tearful and cannot stop crying. Patient has a prescription for hydroxyzine but has been without it and cannot get a refill at this time. Patient denies homicidal suicidal intent. Associated symptoms: Deny chest pain or fever(s) Review of Systems General: Reports: 10 or more systems reviewed and unremarkable except in HPI and below Const: Denies: fever(s) Card: Denies: chest pain Resp: Denies: dyspnea Psych: Reports: anxiety [facility] ED PFSH: Medical History Acute serous otitis media of left ear Anxiety Borderline intellectual functioning Controlled type 2 diabetes mellitus, without long-term current use of insulin Depression Dizziness Dumping syndrome Dyslipidemia Enrolled in chronic care management Generalized anxiety disorder GERD (gastroesophageal reflux disease) Hypertension Hypothyroidism Nausea & vomiting Nausea & vomiting Obesity BHARAT (obstructive sleep apnea) Psychiatric care Seizure disorder Tinnitus Surgical History History of colonoscopy with polypectomy (~09/2018) History of esophagogastroduodenoscopy (EGD) (~09/2018) History of gastric bypass 2020- History of hysterectomy with oophorectomy History of laparoscopic cholecystectomy Family History Grandmother Cancer Father Lung disease Diabetes Denies family history of Anesthesia complication Bleeding disorder Social History Smoking and tobacco status: never smoked Quit status (tobacco): has quit using tobacco Second hand smoke exposure: No Smoking risk assessment/counseling performed?: No Alcohol intake: never Desire information about alcohol rehabilitation?: No Counseling given: No Desire information about substance/drug rehabilitation?: No Counseling given: No Adopted: No Caregiver/support person: Yes Lives independently: Yes Housing: House Marital status: Single Highest education level completed: High School Graduate service: No Current occupational status: employed 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 Current occupational exposures/hazards: No Pets and animals: Yes History of recent travel: No Sexually active: Yes Ania/Church: None Special ania needs: No Agree to transfusion: Yes Financial difficulty paying for basics: Not Very Hard Physical Exam Const: COMMON NORMALS: alert GENERAL APPEARANCE: well kempt HENMT: COMMON NORMALS: normocephalic HEAD & SCALP: normocephalic Resp: COMMON NORMALS: normal respiratory effort Cardio: COMMON NORMALS: regular rate RATE: regular rate Extremity: COMMON NORMALS: normal to inspection Neuro: SENSORIUM/ORIENTATION: Yes alert Psych: COMMON NORMALS: Normal thought process present and speech normal APPEARANCE: Yes well kempt ACTIVITY/MOTOR BEHAVIOR: Yes appropriate eye contact SPEECH: Yes normal speech MOOD & AFFECT: Yes depressed mood and Yes sad THOUGHT PROCESS: Normal thought process present INSIGHT: Fair insight present (Psych) JUDGEMENT: Fair judgement present (Psych) Skin: COMMON NORMALS: no rashes or lesions noted GENERAL SKIN EXAM: no rashes or lesions noted Course Vital Signs: Vital signs: Vital Signs Temperature 98.2 F 04/03/22 18:25 Pulse Rate 80 04/03/22 18:25 Respiratory Rate 18 04/03/22 18:25 Blood Pressure 135/81 04/03/22 18:25 Pulse Oximetry 100 04/03/22 18:25 MDM - Anxiety Medical Decision Making 52-year-old female comes in today tearful and upset about the loss of family members in the car accident. On exam patient is tearful and reports that her anxiety is out of control. Patient denies any suicidal or homicidal thought. Vital signs are normal. Differential diagnosis includes anxiety, depression, adjustment disorder. Patient was given 50 mg of hydroxyzine in the emergency room to help her with acute anxiety. Patient was written for some 14 tablets of hydroxyzine 50 mg to use as needed for breakthrough anxiety. Patient should continue her routine medications otherwise. Discharge Plan Discharge Patient Disposition: Home Clinical Impression: Acute anxiety Condition: Stable Prescriptions: New hydroxyzine pamoate 50 mg capsule 50 mg PO TID PRN (Reason: anxiety) Qty: 14 0RF No Action montelukast [Singulair] 10 mg tablet 10 mg PO DAILY Qty: 90 1RF docusate sodium 100 mg capsule 100 mg PO PRN 0RF levothyroxine 100 mcg capsule 112 mcg PO DAILY 0RF triamcinolone acetonide 0.1 % ointment 1 applic topical BID Qty: 80 2RF Rx Instructions: Apply to affected area no more than 2 weeks per month. Not for face pantoprazole [Protonix] 40 mg tablet,delayed release (DR/EC) 40 mg PO DAILY 0RF Label Comments: pt no longer taking buspirone 15 mg tablet 15 mg PO BID Qty: 60 2RF liothyronine 5 mcg tablet 5 mcg PO DAILY 0RF paroxetine HCl 20 mg tablet 20 mg PO DAILY 0RF acetaminophen [Tylenol Extra Strength] 500 mg Tablet 1,000 mg PO PRN 0RF ondansetron 4 mg tablet,disintegrating 4 mg PO Q8H PRN (Reason: nausea and vomiting) Qty: 20 0RF Carafate 1 gram tablet 1 g PO TID 84 Days Qty: 252 0RF meclizine 25 mg tablet 25 mg PO TID PRN (Reason: dizziness) Qty: 14 0RF benzonatate 100 mg capsule 100 mg PO TID PRN (Reason: cough) Qty: 20 0RF Discharge Orders: Discharge ED (Routine); Ordered 04/03/22 Ordered By: Ash Burton Discharge Diet: Usual diet Discharge Activity: Increase activity as tolerated Patient Instructions: Anxiety (ED) Activity Restrictions/Additional Instructions: Home and rest. The use of hydroxyzine may make you sleepy and you should not drive for operate heavy equipment to avoid injury. Drink plenty of water with medication. Follow-up with primary care for further instruction. Coding Level of Care Code ED Electric Deicer Inspector for Robyn Ruiz
[2022-04-03] MEDS: hyDROXYzine 25 mg Capsule 50 MG PO (18:54)
== END 2022-04-03 18:55 | disposition home or self-care (01) ==
PROVIDERS: Emergency Provider Nurse Practitioner Family
DX: F41.9 Anxiety disorder, unspecified (principal)
CPT/HCPCS: 99283

== ENCOUNTER → 2022-04-05 07:36 | Outpatient (BNVA) | payer MEDICARE, MEDICAID, SELFPAY | PROVIDERS: Visit Provider Nurse Practitioner | DX: F41.1 Generalized anxiety disorder (principal); R41.83 Borderline intellectual functioning; F43.21 Adjustment disorder with depressed mood | CPT/HCPCS: 99214 ==

== ENCOUNTER → 2022-04-09 08:11 | Outpatient (BNVA) | payer MEDICARE, MEDICAID, SELFPAY | PROVIDERS: Visit Provider Otolaryngology | DX: G47.33 Obstructive sleep apnea (adult) (pediatric) (principal); G43.019 Migraine without aura, intractable, without status migrainosus; R41.83 Borderline intellectual functioning; H92.02 Otalgia, left ear; R29.6 Repeated falls; R26.81 Unsteadiness on feet; H65.23 Chronic serous otitis media, bilateral; H90.12 Conductive hearing loss, unilateral, left ear, with unrestricted hearing on the contralateral side; H93.12 Tinnitus, left ear; E03.9 Hypothyroidism, unspecified; E66.01 Morbid (severe) obesity due to excess calories; Z68.41 Body mass index [BMI] 40.0-44.9, adult | CPT/HCPCS: 99204; 99214 ==

== ENCOUNTER 2022-04-10 06:00 | Outpatient (RCR) | payer MEDICARE, MEDICAID, SELFPAY | END 2022-05-09 23:59 | disposition home or self-care (01) | LOC: SPT 06:00 | PROVIDERS: Referring Provider Orthopaedic Surgery; Visit Provider Orthopaedic Surgery | DX: F41.1 Generalized anxiety disorder (principal); M62.838 Other muscle spasm; R41.83 Borderline intellectual functioning; M75.02 Adhesive capsulitis of left shoulder | CPT/HCPCS: 97110 ==

== ENCOUNTER 2022-04-11 08:25 | Day surgery (SDC) | payer MEDICARE, MEDICAID, SELFPAY ==
[2022-04-10 16:22] VITALS: BMI 40.8
[2022-04-11] VITALS (7 sets, daily range): BP systolic 136–158; BP diastolic 83–100; PULSE 54–73; RESP 14–21; TEMP 36.5–36.6; O2SAT 96–99
[2022-04-11] MEDS: sodium chloride 0.9% 1,000 ML 30 ML IV (09:04)
[2022-04-11 09:11] LABS: Glucose Point of Care 88 mg/dL (70-110)
--- NOTE | 2022-04-11 09:36 | P.ANESASSM_ITS ---
Pre-Anesthetic Assessment Height/Weight: Height 1.68 m Weight 114.759 kg Temp Pulse Resp BP Pulse Ox 97.9 F 66 18 155/92 99 04/11/22 08:51 04/11/22 08:51 04/11/22 08:51 04/11/22 08:51 04/11/22 08:51 Preop Diagnosis: Chronic serous otitis media with hearing loss and tinnitus Operation Date: 04/11/22 10:20 Proposed Procedures p [id number] - Bilateral tube insertion [id number] - myringotomy H90.12,H65.23(Bilateral) - Florentin Kim MD Familial anesthetic complications: None Was Beta Paige taken within 24 hours: N/A Was Clonidine taken within 24 hours: N/A Last intake: Intake Last Liquid Date 04/10/22 Last Liquid Time 22:00 Last Solid Date 04/10/22 Last Solid Time 22:00 Social No alcohol and No tobacco Exam alert, oriented x 3, clear to auscultation bilaterally and regular rate & rhythm Airway Submandibular: within normal limits Cervical ROM: within normal limits Mallampati: Class II Dentition: full Pulmonary Sleep Apnea GI Gastroesophageal Reflux Disease Metabolic Diabetes Mellitus, Hyperlipidemia and Morbid Obesity Neuropsych Anxiety Anesthetic Plan ASA status: 3 Anesthesia: General Medications/Allergies Home Medications Medication Instructions Recorded Confirmed Last Taken Type docusate sodium 100 mg capsule 100 mg PO PRN 11/16/19 04/10/22 01/22/22 History liothyronine 5 mcg tablet 5 mcg PO DAILY 05/03/20 04/11/22 04/10/22 History montelukast 10 mg tablet 10 mg PO DAILY #90 tab 06/13/20 04/11/22 04/10/22 Rx (Singulair) acetaminophen 500 mg tablet 1,000 mg PO PRN 10/24/20 04/10/22 01/22/22 History (Tylenol Extra Strength) ondansetron 4 mg disintegrating 4 mg PO Q8H PRN #20 tab 12/27/21 04/10/22 01/22/22 Rx tablet sucralfate 1 gram tablet (Carafate) 1 g PO TID 84 Days #252 tab 01/23/22 04/11/22 04/10/22 Rx levothyroxine 100 mcg capsule 112 mcg PO DAILY cap 03/13/22 04/11/22 04/10/22 History pantoprazole 40 mg tablet,delayed 40 mg PO DAILY tab 03/13/22 04/11/22 04/10/22 History release (Protonix) meclizine 25 mg tablet 25 mg PO TID PRN #14 tab 03/22/22 04/10/22 Unknown Rx hydroxyzine pamoate 50 mg capsule 50 mg PO TID PRN #14 cap 04/03/22 04/11/22 04/10/22 Rx buspirone 15 mg tablet 15 mg PO TID tab 04/05/22 04/11/22 04/10/22 History citalopram 20 mg tablet (Celexa) 20 mg PO DAILY #30 tab 04/05/22 04/11/22 04/10/22 Rx triamcinolone acetonide 0.1 % 1 applic TOPICAL BID PRN 04/10/22 04/10/22 Unknown History topical ointment Allergies Allergy/AdvReac Type Severity Reaction Status Date / Time lisinopril Allergy Severe Unknown Verified 04/09/22 09:42 Pertussis Vaccines Allergy Severe ALGY-Rash Verified 04/09/22 09:42 Sulfa (Sulfonamide Allergy Severe ALGY-Rash Verified 04/09/22 09:42 Antibiotics) sulfamethoxazole Allergy Severe Unknown Verified 04/09/22 09:42 [From Septra] trimethoprim [From Julra] Allergy Severe Unknown Verified 04/09/22 09:42 ibuprofen Allergy ALGY-Anaphy Verified 04/09/22 09:42 laxis Current Medications Generic Name Dose Route Start Last Admin Trade Name Freq PRN Reason Stop Dose Admin Sodium Chloride 1,000 mls @ 30 mls/hr 04/11/22 08:45 04/11/22 09:04 Sodium Chloride 0.9% IV 04/12/22 08:44 30 mls/hr .Q24H MALIKA Administration PFSH Anesthesia Medical History (Updated 04/11/22 @ 00:01 by ) Acute serous otitis media of left ear Anxiety Borderline intellectual functioning Controlled type 2 diabetes mellitus, without long-term current use of insulin Depression Dizziness Dumping syndrome Dyslipidemia Enrolled in chronic care management Generalized anxiety disorder GERD (gastroesophageal reflux disease) Grief reaction Hypertension Hypothyroidism Nausea & vomiting Nausea & vomiting Obesity BHARAT (obstructive sleep apnea) Psychiatric care Seizure disorder Tinnitus Surgical History History of colonoscopy with polypectomy (~09/2018) History of esophagogastroduodenoscopy (EGD) (~09/2018) History of gastric bypass History of hysterectomy with oophorectomy History of laparoscopic cholecystectomy Family History Grandmother Cancer Father Lung disease Diabetes Denies family history of Anesthesia complication Bleeding disorder Social History Smoking and tobacco status: never smoked Quit status (tobacco): has quit using tobacco Second hand smoke exposure: No Smoking risk assessment/counseling performed?: No Alcohol intake: never Desire information about alcohol rehabilitation?: No Counseling given: No Desire information about substance/drug rehabilitation?: No Counseling given: No Adopted: No Caregiver/support person: Yes Lives independently: Yes Housing: House Marital status: Single Highest education level completed: High School Graduate service: No Current occupational status: employed 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
--- NOTE | 2022-04-11 09:56 | W.PM.OPSUD ---
Surgery/Procedure H&P Update DATE OF PROCEDURE: April 11, 2022 DATE H&P PERFORMED: 04/09/22 H&P UPDATE INFORMATION: I have reviewed H&P completed within last 30 days, I have examined patient prior to procedure and No changes to prior documentation CHANGES TO PREVIOUS DOCUMENTATION: No changes PREOP DIAGNOSIS: Chronic serous otitis media with hearing loss and tinnitus PRIMARY INDICATION FOR PROCEDURE: Chronic serous otitis media with conductive hearing loss and tinnitus. PLANNED PROCEDURE: Operation Date: 04/11/22 10:20 Proposed Procedures p [id number] - Bilateral tube insertion [id number] - myringotomy H90.12,H65.23(Bilateral) - Florentin Kim MD
[2022-04-11] MEDS: ofloxacin 0.3% otic 5 mL Btl 3 DROP EAR-BOTH (10:19)
--- NOTE | 2022-04-11 10:38 | P.OP_ITS ---
Operative Report Date of procedure: April 11, 2022 Pre-op diagnosis: Preop Diagnosis Chronic serous otitis media with hearing loss and tinnitus Post-op diagnosis: Same Post-op findings: Bilateral chronic serous otitis media Procedure done: Bilateral myringotomy with Dura-Vent tube insertion Implants: Dura-Vent tubes x2 Specimens removed/disposition: No specimen Pathology: No pathology Surgeon: Florentin Kim MD Anesthesia: General Estimated blood loss: 10 mL Complications: No complications encountered Findings: Both ear canals were covered with excessive keratinaceous debris and cerumen. Softened with peroxide. Removed with suction and forceps. Very irregular ear canals Brief History: 52-year-old female patient has had problems with chronic otitis media and persistent serous otitis media conductive hearing loss and tinnitus. The patient was noted in the office to have chronic serous otitis fluid filling both middle ear spaces. Due to the amount of debris present in the canal and the angle of the canal it was decided that she would not be a good candidate to have myringotomy and tube insertion done in the office. Therefore she was scheduled to undergo myringotomy with tube insertion bilaterally in the operating room under general anesthesia. The procedure its risks and complications were e xplained and understood. Informed consent was granted. The risks discussed included bleeding infection scarring swelling bruising recurrent problems need for additional treatment including new tubes. Need for possible repair perforation granulation tissue cholesteatoma and more serious risks associated with anesthesia. She understood and informed consent was granted and witnessed. Procedure: Description of procedure: The patient was placed on the operating table in the supine position. General LMA anesthesia was obtained. A timeout was acc omplished identifying the patient date of plan procedure allergies fire risk and medications given. With all in agreement the procedure continued. A microscope was used to view through the ear speculum the right external canal. There was dried keratinaceous debris and sloughing skin with cerumen coating the entire canal wall. This was loosened with hydrogen peroxide application and gentle manipulation and suctioning. Then forceps were used to remove the large plaque of skin and debris. Then the tympanic membrane was visualized. The angle was very narrow anteriorly. An incision was created inferiorly with a myringotomy knife and a significant amount of serous fluid was suctioned from the middle ear space. A Dura-Vent tube was selected inserted and positioned and then hydrogen peroxide was used to irrigate through the tube to ensure patency and to control ooze at the incision site and from small nicks in the canal from the debridement. Then additional peroxide was applied to the canal with ofloxacin drops applied and then cotton placed at the meatus. Attention was then turned to the left ear. The angle in the left ear was even worse. The debris was even worse. Again the debris was removed in a similar fashion. Small nicks in the canal skin of did occur again. An anterior inferior incision was created. A significant amount of serous fluid was suctioned. Then a Dura- Vent tube peroxide and ofloxacin and cotton were placed as was done on the right side. After completion of the procedure the patient was returned to anesthesia for wake-up and transport to recovery. She tolerated the procedure well had an estimated blood loss of 10 mL and arrived in recovery in stable condition.
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
--- NOTE | 2022-04-11 12:24 | ANE.PACU2 ---
Inpatient post-anesthesia follow up: Airway intact: Yes Vital signs: Temperature 97.8 F Pulse Rate 58 Respiratory Rate 16 Blood Pressure 148/89 Pulse Oximetry 96 Oxygen Delivery Me thod Room Air Oxygen Flow Rate Fraction of Inspir ed Oxygen Hydration adequate: Yes Nausea and vomiting: No Pain level: 2 Mental status: Baseline
== END 2022-04-11 12:10 | disposition home or self-care (01) ==
PROVIDERS: Visit Provider Otolaryngology
PROC: (CPT 69420; principal; 2022-04-11 10:10)
DX: H65.23 Chronic serous otitis media, bilateral (principal); H91.93 Unspecified hearing loss, bilateral; H93.13 Tinnitus, bilateral; F41.9 Anxiety disorder, unspecified; F32.9 Major depressive disorder, single episode, unspecified; E78.5 Hyperlipidemia, unspecified; E66.9 Obesity, unspecified; Z68.41 Body mass index [BMI] 40.0-44.9, adult; I10 Essential (primary) hypertension; E03.9 Hypothyroidism, unspecified; G47.33 Obstructive sleep apnea (adult) (pediatric)
CPT/HCPCS: 69436; 36416; 82962; J1100; J2250; J2405; J2704; J3010; J7030

== ENCOUNTER → 2022-04-17 08:04 | Outpatient (BNVA) | payer MEDICARE, MEDICAID, SELFPAY | PROVIDERS: Visit Provider Otolaryngology | DX: Z48.89 Encounter for other specified surgical aftercare (principal) | CPT/HCPCS: 99024 ==

== ENCOUNTER → 2022-04-23 12:00 | Outpatient (BNVA) | payer MEDICARE, MEDICAID, SELFPAY | PROVIDERS: Referring Provider Specialist; Visit Provider Specialist | DX: R56.9 Unspecified convulsions (principal) | CPT/HCPCS: 95816 ==

== ENCOUNTER → 2022-05-02 18:59 | Outpatient (BNVA) | payer MEDICARE, MEDICAID, SELFPAY | PROVIDERS: Visit Provider Registered Nurse Neonatal Intensive Care | DX: N39.0 Urinary tract infection, site not specified (principal); B37.3 Candidiasis of vulva and vagina | CPT/HCPCS: 81000 ==

== ENCOUNTER 2022-05-07 18:13 | Emergency (ER) | payer MEDICARE, MEDICAID, SELFPAY ==
[2022-05-07 18:53] VITALS: BP 118/79; PULSE 80; RESP 14; TEMP 36.6; O2SAT 98; BMI 40.5
--- NOTE | 2022-05-07 20:19 | ED_ITS ---
HPI - Nausea/Vomiting/Diarrhea General: Chief complaint: Nausea/Vomiting/Diarrhea Stated complaint: abd pain, N/V Time Seen by Provider: 05/07/22 20:08 Source: patient Mode of arrival: ambulatory Limitations: no limitations History of Present Illness: 52-year-old female very well-known to the ER states that over the last day she has been having nausea and vomiting with abdominal cramping. States she had multiple episodes of vomiting she not been taking any medicine for it denies any worsening proving factors. States her abdominal pain is cramping in nature rates it a 2 out of 10 denies any worsening improving factors denies any dysuria. Associated nausea: Yes Associated symtoms: Reports nausea; Denies chest pain, dysuria or headache(s) Review of Systems Const: Denies: fever(s), chills, body aches or change in appetite Eyes: Denies: blurry vision or eye discomfort ENMT: Denies: throat pain or dental pain Card: Denies: chest pain Resp: Denies: dyspnea GI: Reports: abdominal pain, nausea and vomiting : Denies: dysuria Musc: Denies: neck pain or back pain Skin/Breast: Denies: rash Neuro: Denies: headache(s) Psych: Denies: depression Red/Lymph: Denies: easy bruising All/Imm: Denies: urticaria PFSH ED PFSH: Medical History Acute serous otitis media of left ear Anxiety Borderline intellectual functioning Controlled type 2 diabetes mellitus, without long-term current use of insulin Depression Dizziness Dumping syndrome Dyslipidemia Enrolled in chronic care management Generalized anxiety disorder GERD (gastroesophageal reflux disease) Grief reaction Hypertension Hypothyroidism Nausea & vomiting Nausea & vomiting Obesity BHARAT (obstructive sleep apnea) Psychiatric care Seizure disorder Tinnitus Surgical History History of colonoscopy with polypectomy (~09/2018) History of esophagogastroduodenoscopy (EGD) (~09/2018) History of gastric bypass 2020- - History of hysterectomy with oophorectomy History of laparoscopic cholecystectomy History of placement of ear tubes Family History Grandmother Cancer Father Lung disease Diabetes Denies family history of Anesthesia complication Bleeding disorder Social History Smoking and tobacco status: never smoked Quit status (tobacco): has quit using tobacco Second hand smoke exposure: No Smoking risk assessment/counseling performed?: No Alcohol intake: never Desire information about alcohol rehabilitation?: No Counseling given: No Desire information about substance/drug rehabilitation?: No Counseling given: No Adopted: No Caregiver/support person: Yes Lives independently: Yes Housing: House Marital status: Single Highest education level completed: High School Graduate service: No Current occupational status: employed 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 Current occupational exposures/hazards: No Pets and animals: Yes History of recent travel: No Sexually active: Yes Ania/Temple: None Special ania needs: No Agree to transfusion: Yes Financial difficulty paying for basics: Not Very Hard Physical Exam Const: COMMON NORMALS: no acute distress, patient oriented x3 and healthy appearing HENMT: COMMON NORMALS: normocephalic and atraumatic HEAD & SCALP: normocephalic and atraumatic Eye: COMMON NORMALS: Equal, round and reactive pupils present and EOMs intact bilaterally PUPIL: Yes Equal, round and reactive pupils present Neck/C-Spine: COMMON NORMALS: full ROM and supple Chest: COMMONS NORMALS: normal inspection of the chest and normal palpation of entire chest wall Resp: COMMON NORMALS: normal respiratory effort, No retractions, No use of accessory muscles and clear to auscultation bilaterally AUSCULTATION: clear to auscultation bilaterally Cardio: COMMON NORMALS: regular rate, regular rhythm and No murmurs present (Cardio) RATE: regular rate RHYTHM: regular rhythm GI: COMMON NORMALS: Normal to inspection, nondistended, normoactive bowel sounds present, Soft to palpation, non-tender and no masses PALPATION: Yes Soft to palpation Extremity: COMMON NORMALS: normal to inspection and full ROM Neuro: COMMON NORMALS: patient oriented x3, moves all extremities and no focal motor deficits Psych: COMMON NORMALS: mental status grossly normal, Normal thought process present and cooperative THOUGHT PROCESS: Normal thought process present Skin: COMMON NORMALS: no rashes or lesions noted and no wounds GENERAL SKIN EXAM: no rashes or lesions noted Course Vital Signs: Vital signs: Vital Signs Temperature 97.9 F 05/07/22 18:53 Pulse Rate 80 05/07/22 21:54 Respiratory Rate 18 05/07/22 21:54 Blood Pressure 142/86 05/07/22 21:54 Pulse Oximetry 97 05/07/22 21:54 MDM - Nausea/Vomiting/Diarrhea Medical Decision Making Patient presents here with nausea and vomiting feels improved here after Reglan her abdominal exam here is benign her white count here is normal she has no signs of acute surgical abdomen. She is stable for discharge we will prescribe her Zofran she is to follow-up with her PCP and return if worsening she understands agrees to plan. Lab Data : 05/07/22 20:30 05/07/22 20:30 Laboratory Results WBC 7.9 10^3/uL (4.0-10.0) 05/07/22 20: RBC 5.21 10^6/uL (4.1-5.3) 05/07/22 20:30 Hgb 15.5 g/dL (11.5-15.3) H 05/07/22 20:30 Hct 45.8 % (37.0-47.0) 05/07/22 20:30 MCV 87.9 fl (81-99) 05/07/22 20:30 MCH 29.8 pg (28.0-34.0) 05/07/22 20: MCHC 33.8 g/dL (30.0-36.0) 05/07/22 20:30 RDW 11.9 % (12.1-15.1) L 05/07/22 20:30 Plt Count 247 10^3/cmm (130-400) 05/07/22 20:30 MPV 9.1 fL (7.4-10.4) 05/07/22 20:30 Neut % (Auto) 65.2 % 05/07/22 20:30 Lymph % (Auto) 26.0 % 05/07/22 20:30 [place] % (Auto) 6.8 % 05/07/22 20:30 Eos % (Auto) 1.1 % 05/07/22 20:30 Baso % (Auto) 0.6 % 05/07/22 20:30 Neut # (Auto) 5.14 10^3/uL (1.8-7.7) 05/07/22 20:30 Lymph # (Auto) 2.1 10^3/uL (0.8-4.8) 05/07/22 20:30 [place] # (Auto) 0.5 10^3/uL (0.2-0.9) 05/07/22 20:30 Eos # (Auto) 0.1 10^3/uL (0.0-0.8) 05/07/22 20:30 Baso # (Auto) 0.1 10^3/uL (0.0-0.1) 05/07/22 20:30 Nucleated RBC % (auto) 0 % 05/07/22 20: Nucleated RBCs # 0.0 /100WBC 05/07/22 20:30 Sodium 140 mmol/L (136-145) 05/07/22 20:30 Potassium 4.2 mmol/L (3.5-5.1) 05/07/22 20:30 Chloride 104 mmol/L (98-107) 05/07/22 20: Carbon Dioxide 25 mmol/L (22-29) 05/07/22 20: Anion Gap 15.2 (5-19) 05/07/22 20:30 BUN 15 mg/dL (6-20) 05/07/22 20:30 Creatinine 0.7 mg/dL (0.5-0.9) 05/07/22 20:30 GFR Calculation 88.6 mL/min (90-130) L 05/07/22 20: Glucose 120 mg/dL (65-115) H 05/07/22 20:30 Calculated Osmolality 292 mOsm/kg (285-295) 05/07/22 20: Calcium 9.5 mg/dL (8.5-10.5) 05/07/22 20:30 Total Bilirubin 0.2 mg/dL (0.15-1.2) 05/07/22 20:30 AST 21 U/L (0-32) 05/07/22 20:30 ALT 28 U/L (0-33) 05/07/22 20:30 Alkaline Phosphatase 95 IU/L (35-105) 05/07/22 20:30 Total Protein 7.8 g/dL (6.6-8.7) 05/07/22 20:30 Albumin 4.2 g/dL (3.5-5.2) 05/07/22 20: Globulin 3.6 g/dL (1.3-4.6) 05/07/22 20:30 Lipase 57 U/L (13-60) 05/07/22 20:30 Discharge Plan Discharge Patient Disposition: Home Clinical Impression: Vomiting Qualifiers: Vomiting type: unspecified Nausea presence: with nausea Qualified Code(s): R11.2 - Nausea with vomiting, unspecified Condition: Stable Prescriptions: New ondansetron 4 mg tablet,disintegrating 4 mg PO Q6H PRN (Reason: nausea and vomiting) Qty: 14 0RF No Action montelukast [Singulair] 10 mg tablet 10 mg PO DAILY Qty: 90 1RF docusate sodium 100 mg capsule 100 mg PO PRN 0RF levothyroxine 100 mcg capsule 112 mcg PO DAILY 0RF buspirone 15 mg tablet 15 mg PO TID 0RF citalopram [Celexa] 20 mg tablet 20 mg PO DAILY Qty: 30 1RF ofloxacin 0.3 % drops 2 drp otic (ear) ONCE PRN (Reason: Tubes in tympanic membranes) Qty: 10 12RF Rx Instructions: Apply 2 drops to each ear after water exposure pantoprazole [Protonix] 40 mg tablet,delayed release (DR/EC) 40 mg PO DAILY 0RF Label Comments: pt no longer taking nitrofurantoin monohyd/m-cryst [Macrobid] 100 mg capsule 100 mg PO BID 5 Days Qty: 10 0RF Rx Instructions: must administer with a meal/food fluconazole 150 mg tablet 150 mg PO Q3D Qty: 2 0RF liothyronine 5 mcg tablet 5 mcg PO DAILY 0RF acetaminophen [Tylenol Extra Strength] 500 mg Tablet 1,000 mg PO PRN 0RF ondansetron 4 mg tablet,disintegrating 4 mg PO Q8H PRN (Reason: nausea and vomiting) Qty: 20 0RF hydroxyzine pamoate 50 mg capsule 50 mg PO TID PRN (Reason: anxiety) Qty: 14 0RF triamcinolone acetonide 0.1 % ointment 1 applic topical BID PRN (Reason: Rash) 0RF Rx Instructions: Apply to affected area no more than 2 weeks per month. Not for face meclizine 25 mg tablet 25 mg PO TID PRN (Reason: dizziness) Qty: 14 0RF Discharge Orders: Discharge ED (Routine); Ordered 05/07/22 Ordered By: Patricia Arroyo Discharge Diet: Advance as tolerated Discharge Activity: Resume usual activity Patient Instructions: Acute Nausea and Vomiting (ED) Coding Level of Care Code ED Shaping Machine Tender for Robyn Fwd Exam Comprehensive
[2022-05-07 20:34] LABS: Basophils # 0.1 10^3/uL (0.0-0.1); Basophils % 0.6 %; Eosinophils # 0.1 10^3/uL (0.0-0.8); Eosinophils % 1.1 %; Hematocrit 45.8 % (37.0-47.0); Hemoglobin 15.5 g/dL (11.5-15.3); Lymphocytes # 2.1 10^3/uL (0.8-4.8); Mean Corpuscular HGB Conc 33.8 g/dL (30.0-36.0); Mean Corpuscular Hemoglobin 29.8 pg (28.0-34.0); Mean Corpuscular Volume 87.9 fl (81-99); Mean Platelet Volume 9.1 fL (7.4-10.4); Monocytes # 0.5 10^3/uL (0.2-0.9); Monocytes % 6.8 %; Neutrophils # 5.14 10^3/uL (1.8-7.7); Neutrophils % 65.2 %; Nucleated Red Blood Cells % 0 %; Platelet Count 247 10^3/cmm (130-400); Red Blood Count 5.21 10^6/uL (4.1-5.3); Red Cell Distribution Width 11.9 % (12.1-15.1); White Blood Count 7.9 10^3/uL (4.0-10.0)
[2022-05-07 20:56] LABS: Alanine Aminotransferase 28 U/L (0-33); Albumin Level 4.2 g/dL (3.5-5.2); Alkaline Phosphatase 95 IU/L (35-105); Anion Gap 15.2 (5-19); Aspartate Amino Transferase 21 U/L (0-32); Blood Urea Nitrogen 15 mg/dL (6-20); Calcium 9.5 mg/dL (8.5-10.5); Carbon Dioxide 25 mmol/L (22-29); Chloride 104 mmol/L (98-107); Globulin 3.6 g/dL (1.3-4.6); Glomerular Filtration Rate 88.6 mL/min (90-130); Glucose 120 mg/dL (65-115); Lipase 57 U/L (13-60); Osmolality Calculated 292 mOsm/kg (285-295); Potassium 4.2 mmol/L (3.5-5.1); Sodium 140 mmol/L (136-145); Total Bilirubin 0.2 mg/dL (0.15-1.2); Total Protein 7.8 g/dL (6.6-8.7)
[2022-05-07] MEDS: metoclopramide 5 mg/mL SDV 2 mL 10 MG IVP (21:21)
[2022-05-07 21:54] VITALS: BP 142/86; PULSE 80; RESP 18; O2SAT 97
== END 2022-05-07 21:57 | disposition home or self-care (01) ==
PROVIDERS: Emergency Provider Emergency Medicine
DX: R11.2 Nausea with vomiting, unspecified (principal); E11.9 Type 2 diabetes mellitus without complications; E78.5 Hyperlipidemia, unspecified; I10 Essential (primary) hypertension; Z87.891 Personal history of nicotine dependence
CPT/HCPCS: 80053; 83690; 85025; 96374; 99284; J2765

== ENCOUNTER 2022-05-18 22:13 | Emergency (ER) | payer MEDICARE, MEDICAID, SELFPAY ==
[2022-05-18 22:44] VITALS: BP 110/76; PULSE 83; RESP 18; TEMP 37; O2SAT 96
--- NOTE | 2022-05-19 00:47 | ED_ITS ---
HPI - Ear Problem General: Chief complaint: Ear Stated complaint: Lt Ear Pain Time Seen by Provider: 05/19/22 00:47 History of Present Illness: 52-year-old female comes in today with complaints of left ear pain. Patient reports she has been using some eardrops but her ear is getting worse. Patient reports having tubes in her ear. Associated symptoms: Reports ear or mastoid pain Review of Systems General: Reports: 10 or more systems reviewed and unremarkable except in HPI and below ENMT: Reports: ear or mastoid pain PFSH ED PFSH: Medical History Acute serous otitis media of left ear Anxiety Borderline intellectual functioning Controlled type 2 diabetes mellitus, without long-term current use of insulin Depression Dizziness Dumping syndrome Dyslipidemia Enrolled in chronic care management Generalized anxiety disorder GERD (gastroesophageal reflux disease) Grief reaction Hypertension Hypothyroidism Nausea & vomiting Nausea & vomiting Obesity BHARAT (obstructive sleep apnea) Psychiatric care Seizure disorder Tinnitus Surgical History History of colonoscopy with polypectomy (~09/2018) History of esophagogastroduodenoscopy (EGD) (~09/2018) History of gastric bypass History of hysterectomy with oophorectomy History of laparoscopic cholecystectomy History of placement of ear tubes Family History Grandmother Cancer Father Lung disease Diabetes Denies family history of Anesthesia complication Bleeding disorder Social History Smoking and tobacco status: never smoked Quit status (tobacco): has quit using tobacco Second hand smoke exposure: No Smoking risk assessment/counseling performed?: No Alcohol intake: never Desire information about alcohol rehabilitation?: No Counseling given: No Desire information about substance/drug rehabilitation?: No Counseling given: No Adopted: No Caregiver/support person: Yes Lives independently: Yes Housing: House Marital status: Single Highest education level completed: High School Graduate service: No Current occupational status: employed 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 Current occupational exposures/hazards: No Pets and animals: Yes History of recent travel: No Sexually active: Yes Ania/Judaism: None Special ania needs: No Agree to transfusion: Yes Financial difficulty paying for basics: Not Very Hard Physical Exam Const: COMMON NORMALS: alert HENMT: EXTERNAL AUDITORY CANAL: Abnormal EAC present EAC laterality: bilateral erythema and edema Neck/C-Spine: COMMON NORMALS: full ROM Resp: COMMON NORMALS: normal respiratory effort Cardio: COMMON NORMALS: regular rate and regular rhythm RATE: regular rate RHYTHM: regular rhythm Extremity: COMMON NORMALS: normal to inspection Neuro: SENSORIUM/ORIENTATION: Yes alert Skin: COMMON NORMALS: no rashes or lesions noted GENERAL SKIN EXAM: no rashes or lesions noted Course Vital Signs: Vital signs: Vital Signs Temperature 98.6 F 05/18/22 22:44 Pulse Rate 83 05/18/22 22:44 Respiratory Rate 18 05/18/22 22:44 Blood Pressure 110/76 05/18/22 22:44 Pulse Oximetry 96 05/18/22 22:44 [facility] - Ear Medical Decision Making 52-year-old female comes in today with complaints of bilateral ear pain worse on the left. On exam patient has erythema to bilateral ear canals with swelling increased on the left. Differential diagnosis includes otitis externa, malignant otitis externa, cellulitis. We will switch patient's antibiotic drops from ofloxacin to Ciprodex to get steroid to help with the swelling of the ear canal. Patient was given 1 dose of dexamethasone IM. Patient will also be put on some oral Augmentin for better coverage. Patient reported understanding of care plan need for follow-up with primary care or specialist. Discharge Plan Discharge Patient Disposition: Home Clinical Impression: Otitis externa Qualifiers: Otitis externa type: diffuse Chronicity: unspecified Laterality: bilateral Qualified Code(s): H60.313 - Diffuse otitis externa, bilateral Condition: Stable Prescriptions: New amoxicillin-pot clavulanate 875-125 mg tablet 1 tab PO BID Qty: 14 0RF Ciprodex 0.3-0.1 % drops,suspension 4 drp otic (ear) BID 7 Days Qty: 1 0RF No Action montelukast [Singulair] 10 mg tablet 10 mg PO DAILY Qty: 90 1RF docusate sodium 100 mg capsule 100 mg PO PRN 0RF levothyroxine 100 mcg capsule 112 mcg PO DAILY 0RF ofloxacin 0.3 % drops 2 drp otic (ear) ONCE PRN (Reason: Tubes in tympanic membranes) Qty: 10 12RF Rx Instructions: Apply 2 drops to each ear after water exposure citalopram [Celexa] 20 mg tablet 20 mg PO DAILY Qty: 30 1RF buspirone 15 mg tablet 15 mg PO TID Qty: 90 1RF nitrofurantoin monohyd/m-cryst [Macrobid] 100 mg capsule 100 mg PO BID 5 Days Qty: 10 0RF Rx Instructions: must administer with a meal/food fluconazole 150 mg tablet 150 mg PO Q3D Qty: 2 0RF pantoprazole [Protonix] 40 mg tablet,delayed release (DR/EC) 40 mg PO DAILY Qty: 30 0RF liothyronine 5 mcg tablet 5 mcg PO DAILY 0RF acetaminophen [Tylenol Extra Strength] 500 mg Tablet 1,000 mg PO PRN 0RF ondansetron 4 mg tablet,disintegrating 4 mg PO Q8H PRN (Reason: nausea and vomiting) Qty: 20 0RF hydroxyzine pamoate 50 mg capsule 50 mg PO TID PRN (Reason: anxiety) Qty: 14 0RF triamcinolone acetonide 0.1 % ointment 1 applic topical BID PRN (Reason: Rash) 0RF Rx Instructions: Apply to affected area no more than 2 weeks per month. Not for face meclizine 25 mg tablet 25 mg PO TID PRN (Reason: dizziness) Qty: 14 0RF ondansetron 4 mg tablet,disintegrating 4 mg PO Q6H PRN (Reason: nausea and vomiting) Qty: 14 0RF Discharge Orders: Discharge ED (Routine); Ordered 05/19/22 Ordered By: Ash Burton Discharge Diet: Usual diet Discharge Activity: Increase activity as tolerated Patient Instructions: Otitis Externa - Adult Activity Restrictions/Additional Instructions: Take medications as directed. Drink plenty of fluids with medications. Follow- up with primary care or ear healthcare educator for further treatment. Coding Level of Care Code ED Housekeeper And Laundry Assistant for Robyn Ruiz
[2022-05-19] MEDS: dexamethasone 10 mg/mL INJ IM (01:02)
[2022-05-19] MEDS: amoxicillin-clav 875-125 mg Tablet 1 TAB PO (01:02)
[2022-05-19] MEDS: ciprofloxacin-dexameth Otic Susp 7.5 mL Btl 4 DROP EAR-BOTH (01:05)
[2022-05-19 01:18] VITALS: RESP 16
== END 2022-05-19 01:18 | disposition home or self-care (01) ==
PROVIDERS: Emergency Provider Nurse Practitioner Family
DX: H60.313 Diffuse otitis externa, bilateral (principal); Z87.891 Personal history of nicotine dependence; E11.9 Type 2 diabetes mellitus without complications; E78.5 Hyperlipidemia, unspecified; I10 Essential (primary) hypertension
CPT/HCPCS: 96372; 99284; J1100

== ENCOUNTER → 2022-05-20 14:12 | Outpatient (BNVA) | payer MEDICARE, MEDICAID, SELFPAY | PROVIDERS: Visit Provider Otolaryngology | DX: H66.003 Acute suppurative otitis media without spontaneous rupture of ear drum, bilateral (principal) | CPT/HCPCS: 99213 ==

== ENCOUNTER → 2022-05-29 12:59 | Outpatient (BNVA) | payer MEDICARE, MEDICAID, SELFPAY | PROVIDERS: Visit Provider Otolaryngology | DX: H66.93 Otitis media, unspecified, bilateral (principal); H69.83 Other specified disorders of Eustachian tube, bilateral; Z96.22 Myringotomy tube(s) status | CPT/HCPCS: 99213 ==

== ENCOUNTER 2022-06-04 07:25 | Outpatient (CLI) | payer MEDICARE, MEDICAID, SELFPAY ==
--- NOTE | 2022-06-04 07:37 | MR_ITS ---
WS: [id number] MRI HEAD WITHOUT CONTRAST TECHNIQUE: Sagittal T1, T2 axial, T2 axial FLAIR, axial and coronal T1 images, axial susceptibility w eighted imaging, axial diffusion weighted images, and coronal T2 images were obtained. CLINICAL INFORMATION: G47.419 - Narcolepsy without cataplexy COMPARISON: CT July 06, 2020 FINDINGS: No evidence of restricted diffusion to suggest acute ischemia. Ventricular system and basal cisterns are patent. No suspicious intracranial signal abnormalities. Normal camp-white differentiation. Yani l posterior fossa. Normal vascular flow voids at the skull base. No extra-axial fluid collections. Fl uid with complete opacification mastoid air cells bilaterally. Normal posterior nasopharynx. Small am ount of fluid in the LEFT maxillary sinus. Paranasal sinuses are otherwise well aerated. Benign partially empty sella. No hemosiderin on the susceptibly weighted images. Normal optic chiasm and pituitary infundibulum. Temporal lobes and hippocampal formations are normal in appearance. MR/MR head wo con* [id number] IMPRESSION: 1. No evidence of restricted diffusion to suggest acute ischemia. 2. No suspicious intracranial signal abnormalities. No significant parenchymal volume loss. 3. Fluid with complete opacification mastoid air cells bilaterally. Normal pos terior nasopharynx. Recommend correlation for mastoiditis. 4. Small amount of fluid in the LEFT maxillary sinus. Paranasal sinuses are ot herwise well aerated. 5. No hemosiderin on susceptibly weighted images. Normal optic chiasm and pitu itary infundibulum. 6. No other acute findings.
== END 2022-06-04 07:26 | disposition home or self-care (01) ==
LOC: RAD 07:25
PROVIDERS: Visit Provider Specialist
DX: G47.419 Narcolepsy without cataplexy (principal)
CPT/HCPCS: 70551

== ENCOUNTER 2022-06-07 17:53 | Emergency (ER) | payer MEDICARE, MEDICAID, SELFPAY ==
[2022-06-07 18:08] VITALS: BP 137/75; PULSE 137; RESP 16; TEMP 36.8; O2SAT 99; BMI 41.9
[2022-06-07 18:40] LABS: Basophils % 0.5 %; Eosinophils # 0.1 10^3/uL (0.0-0.8); Eosinophils % 1.1 %; Hematocrit 44.2 % (37.0-47.0); Hemoglobin 14.3 g/dL (11.5-15.3); Lymphocytes # 1.9 10^3/uL (0.8-4.8); Lymphocytes % 25.5 %; Mean Corpuscular HGB Conc 32.4 g/dL (30.0-36.0); Mean Corpuscular Hemoglobin 29.4 pg (28.0-34.0); Mean Corpuscular Volume 90.9 fl (81-99); Mean Platelet Volume 9.7 fL (7.4-10.4); Monocytes # 0.5 10^3/uL (0.2-0.9); Monocytes % 6.8 %; Neutrophils # 4.85 10^3/uL (1.8-7.7); Nucleated Red Blood Cells % 0 %; Platelet Count 232 10^3/cmm (130-400); Red Blood Count 4.86 10^6/uL (4.1-5.3); Red Cell Distribution Width 14.2 % (12.1-15.1); White Blood Count 7.4 10^3/uL (4.0-10.0)
[2022-06-07 18:47] VITALS: BP 141/82; PULSE 70; RESP 18; O2SAT 99
--- NOTE | 2022-06-07 18:48 | ED_ITS ---
HPI - Abdominal Pain General: Chief Complaint: Abdominal Pain Stated Complaint: Abd Pains Time Seen by Provider: 06/07/22 18:24 Source: patient Mode of arrival: ambulatory Limitations: no limitations History of Present Illness: 52-year-old female who has chronic abdominal pain she has been seen here multiple x4. States that she had eaten at the [place] today and then when walking started having lower abdominal pain that was sharp in nature states pain was 8 out of 10 and has improved currently. She denies any vomiting or diarrhea denies any fevers denies any radiation of her pain. Associated Symptoms: Denies chills, dysuria and fever(s) Review of Systems Const: Denies: fever(s), chills, body aches or change in appetite Eyes: Denies: blurry vision or eye discomfort ENMT: Denies: throat pain or dental pain Card: Denies: chest pain Resp: Denies: dyspnea GI: Reports: abdominal pain : Denies: dysuria Musc: Denies: neck pain or back pain Skin/Breast: Denies: rash Neuro: Denies: headache(s) Psych: Denies: depression Red/Lymph: Denies: easy bruising All/Imm: Denies: urticaria PFSH ED PFSH: Medical History Acute serous otitis media of left ear Anxiety Borderline intellectual functioning Controlled type 2 diabetes mellitus, without long-term current use of insulin Depression Dizziness Dumping syndrome Dyslipidemia Enrolled in chronic care management Generalized anxiety disorder GERD (gastroesophageal reflux disease) Grief reaction Hypertension Hypothyroidism Nausea & vomiting Nausea & vomiting Obesity BHARAT (obstructive sleep apnea) Psychiatric care Seizure disorder Tinnitus Surgical History History of colonoscopy with polypectomy (~09/2018) History of esophagogastroduodenoscopy (EGD) (~09/2018) History of gastric bypass 2020- chidi- [facility] History of hysterectomy with oophorectomy History of laparoscopic cholecystectomy History of placement of ear tubes Family History Grandmother Cancer Father Lung disease Diabetes Denies family history of Anesthesia complication Bleeding disorder Social History Smoking and tobacco status: never smoked Quit status (tobacco): has quit using tobacco Second hand smoke exposure: No Smoking risk assessment/counseling performed?: No Alcohol intake: never Desire information about alcohol rehabilitation?: No Counseling given: No Desire information about substance/drug rehabilitation?: No Counseling given: No Adopted: No Caregiver/support person: Yes Lives independently: Yes Housing: House Marital status: Single Highest education level completed: High School Graduate service: No Current occupational status: employed 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 Current occupational exposures/hazards: No Pets and animals: Yes History of recent travel: No Sexually active: Yes Ania/Confucianist: None Special ania needs: No Agree to transfusion: Yes Financial difficulty paying for basics: Not Very Hard Physical Exam Const: COMMON NORMALS: no acute distress, patient oriented x3 and healthy appearing HENMT: COMMON NORMALS: normocephalic and atraumatic HEAD & SCALP: n ormocephalic and atraumatic Eye: COMMON NORMALS: Equal, round and reactive pupils present and EOMs intact bilaterally PUPIL: Yes Equal, round and reactive pupils present Neck/C-Spine: COMMON NORMALS: full ROM and supple Chest: COMMONS NORMALS: normal inspection of the chest and normal palpation of entire chest wall Resp: COMMON NORMALS: normal respiratory effort, No retractions, No use of accessory muscles and clear to auscultation bilaterally AUSCULTATION: clear to auscultation bilaterally Cardio: COMMON NORMALS: regular rate, regular rhythm and No murmurs present (Cardio) RATE: regular rate RHYTHM: regular rhythm GI: COMMON NORMALS: Normal to inspection, nondistended, normoactive bowel sounds present, Soft to palpation, non-tender and no masses PALPATION: Yes Soft to palpation Extremity: COMMON NORMALS: normal to inspection and full ROM Neuro: COMMON NORMALS: patient oriented x3, moves all extremities and no focal motor deficits Psych: COMMON NORMALS: mental status grossly normal, Normal thought process present and cooperative THOUGHT PROCESS: Normal thought process present Skin: COMMON NORMALS: no rashes or lesions noted and no wounds GENERAL SKIN EXAM: no rashes or lesions noted Course Vital Signs: Vital signs: Vital Signs Temperature 98.3 F 06/07/22 18:08 Pulse Rate 70 06/07/22 18:47 Respiratory Rate 18 06/07/22 18:53 Blood Pressure 141/82 06/07/22 18:47 Pulse Oximetry 99 06/07/22 18:47 Oxygen Delivery Me thod 06/07/22 18:47 MDM - Abdominal Pain Medical Decision Making Patient presents here with abdominal pain that is chronic in nature she is well- appearing here her vomiting is resolved her exam is benign blood work is all normal she has no signs of UTI she is stable for discharge she is to follow-up with PCP and return if worsening she understands agrees to plan. Lab Data : 06/07/22 18:33 06/07/22 19:48 Labs/Radiology: Laboratory Results WBC 7.4 10^3/uL (4.0-10.0) 06/07/22 18:33 RBC 4.86 10^6/uL (4.1-5.3) 06/07/22 18:33 Hgb 14.3 g/dL (11.5-15.3) 06/07/22 18:33 Hct 44.2 % (37.0-47.0) 06/07/22 18:33 MCV 90.9 fl (81-99) 06/07/22 18:33 MCH 29.4 pg (28.0-34.0) 06/07/22 18:33 MCHC 32.4 g/dL (30.0-36.0) 06/07/22 18:33 RDW 14.2 % (12.1-15.1) 06/07/22 18:33 Plt Count 232 10^3/cmm (130-400) 06/07/22 18:33 MPV 9.7 fL (7.4-10.4) 06/07/22 18:33 Neut % (Auto) 66.0 % 06/07/22 18:33 Lymph % (Auto) 25.5 % 06/07/22 18:33 Chambers % (Auto) 6.8 % 06/07/22 18:33 Eos % (Auto) 1.1 % 06/07/22 18:33 Baso % (Auto) 0.5 % 06/07/22 18:33 Neut # (Auto) 4.85 10^3/uL (1.8-7.7) 06/07/22 18:33 Lymph # (Auto) 1.9 10^3/uL (0.8-4.8) 06/07/22 18:33 Chambers # (Auto) 0.5 10^3/uL (0.2-0.9) 06/07/22 18:33 Eos # (Auto) 0.1 10^3/uL (0.0-0.8) 06/07/22 18:33 Baso # (Auto) 0.0 10^3/uL (0.0-0.1) 06/07/22 18:33 Nucleated RBC % (auto) 0 % 06/07/22 18:33 Nucleated RBCs # 0.0 /100WBC 06/07/22 18:33 Sodium 141 mmol/L (136-145) 06/07/22 19:48 Potassium 3.9 mmol/L (3.5-5.1) 06/07/22 19:48 Chloride 105 mmol/L (98-107) 06/07/22 19:48 Carbon Dioxide 25 mmol/L (-) 06/07/22 19:48 Anion Gap 14.9 (5-19) 06/07/22 19:48 BUN 19 mg/dL (6-20) 06/07/22 19:48 Creatinine 0.6 mg/dL (0.5-0.9) 06/07/22 19:48 GFR Calculation 105.8 mL/min (90-130) 06/07/22 19:48 Glucose 101 mg/dL (65-115) 06/07/22 19:48 Calculated Osmolality 294 mOsm/kg (285-295) 06/07/22 19:48 Calcium 8.8 mg/dL (8.5-10.5) 06/07/22 19:48 Total Bilirubin 0.3 mg/dL (0.15-1.2) 06/07/22 19:48 AST 74 U/L (0-32) H 06/07/22 19:48 ALT 36 U/L (0-33) H 06/07/22 19:48 Alkaline Phosphatase 85 IU/L (35-105) 06/07/22 19:48 Total Protein 6.8 g/dL (6.6-8.7) 06/07/22 19:48 Albumin 3.6 g/dL (3.5-5.2) 06/07/22 19:48 Globulin 3.2 g/dL (1.3-4.6) 06/07/22 19:48 Lipase 68 U/L (13-60) H 06/07/22 19:48 Urine Color Yellow (Yellow) 06/07/22 18:33 Urine Appearance Clear (CLEAR) 06/07/22 18:33 Urine pH 6 (5-7) 06/07/22 18:33 Ur Specific [place] 1.025 (1.005-1.030) 06/07/22 18:33 Urine Protein Neg (Negative) 06/07/22 18:33 Urine Glucose (UA) Norm (Normal) 06/07/22 18:33 Urine Ketones Negative (Negative) 06/07/22 18:33 Urine Blood Neg (Negative) 06/07/22 18:33 Urine Nitrate Negative (Negative) 06/07/22 18:33 Urine Bilirubin Neg (Negative) 06/07/22 18:33 Urine Urobilinogen 1 mg/dL (Negative) H 06/07/22 18:33 Ur Leukocyte Esterase Trace (Negative) H 06/07/22 18:33 Urine RBC 0-4 /hpf (0-2) H 06/07/22 18:33 Urine WBC 0-4 /hpf (0-5) H 06/07/22 18:33 Ur Squamous Epith Cells 0-4 /hpf (0-5) H 06/07/22 18:33 Amorphous Sediment Not Reportable 06/07/22 18:33 Urine Bacteria Trace /hpf (NONE) 06/07/22 18:33 Discharge Plan Discharge Patient Disposition: Home Clinical Impression: Abdominal pain Qualifiers: Abdominal location: generalized Qualified Code(s): R10.84 - Generalized abdominal pain Condition: Stable Prescriptions: New ondansetron 4 mg tablet,disintegrating 4 mg PO Q6H PRN (Reason: nausea and vomiting) Qty: 14 0RF No Action montelukast [Singulair] 10 mg tablet 10 mg PO DAILY Qty: 90 1RF docusate sodium 100 mg capsule 100 mg PO PRN levothyroxine 100 mcg capsule 112 mcg PO DAILY ofloxacin 0.3 % drops 2 drp otic (ear) ONCE PRN (Reason: Tubes in tympanic membranes) Qty: 10 12RF Rx Instructions: Apply 2 drops to each ear after water exposure citalopram [Celexa] 20 mg tablet 20 mg PO DAILY Qty: 30 1RF buspirone 15 mg tablet 15 mg PO TID Qty: 90 1RF nitrofurantoin monohyd/m-cryst [Macrobid] 100 mg capsule 100 mg PO BID 5 Days Qty: 10 0RF Rx Instructions: must administer with a meal/food fluconazole 150 mg tablet 150 mg PO Q3D Qty: 2 0RF pantoprazole [Protonix] 40 mg tablet,delayed release (DR/EC) 40 mg PO DAILY Qty: 30 0RF ciprofloxacin-dexamethasone [Ciprodex] 0.3-0.1 % drops,suspension 4 drp otic (ear) BID Qty: 7.5 3RF ciprofloxacin HCl 500 mg tablet 500 mg PO BID liothyronine 5 mcg tablet 5 mcg PO DAILY acetaminophen [Tylenol Extra Strength] 500 mg Tablet 1,000 mg PO PRN hydroxyzine pamoate 50 mg capsule 50 mg PO TID PRN (Reason: anxiety) Qty: 14 0RF triamcinolone acetonide 0.1 % ointment 1 applic topical BID PRN (Reason: Rash) Rx Instructions: Apply to affected area no more than 2 weeks per month. Not for face meclizine 25 mg tablet 25 mg PO TID PRN (Reason: dizziness) Qty: 14 0RF ondansetron 4 mg tablet,disintegrating 4 mg PO Q6H PRN (Reason: nausea and vomiting) Qty: 14 0RF Discharge Orders: Discharge ED (Routine); Ordered 06/07/22 Ordered By: Patricia Arroyo Discharge Diet: Advance as tolerated Discharge Activity: Resume usual activity Patient Instructions: Abdominal Pain (ED) Coding Level of Care Code ED Catalytic Case Operator for Robyn Fwd Exam Comprehensive
[2022-06-07] MEDS: ondansetron 2 mg/ML SDV 2 mL 4 MG IVP (18:51)
[2022-06-07 18:53] VITALS: RESP 18
[2022-06-07] MEDS: morphine 4 mg/mL SDV 1 mL IVP (18:53)
[2022-06-07 19:03] LABS: Add Urine Microscopic? YES; Bilirubin Urine Neg (Negative); Blood Urine Neg (Negative); Glucose Urine UA Norm (Normal); Ketones Urine Negative (Negative); Leukocyte Esterase Urine Trace (Negative); Nitrate Urine Negative (Negative); Protein Urine Neg (Negative); Specific Gravity, Urine 1.025 (1.005-1.030); Urine Appearance Clear (CLEAR); Urine Color Yellow (Yellow); Urobilinogen Urine 1 mg/dL (Negative); pH Urine 6 (5-7)
[2022-06-07 19:04] LABS: Add Urine Culture? No; Bacteria Urine TRACE /hpf; RBC Urine 0-4 /hpf (0-2); Squamous Epithelial Cell Urine 0-4 /hpf (0-5); WBC Urine 0-4 /hpf (0-5)
[2022-06-07] MEDS: metoclopramide 5 mg/mL SDV 2 mL 10 MG IVP (19:18)
[2022-06-07] MEDS: diphenhydrAMINE 50 mg/mL SDV 1mL IVP (19:18)
[2022-06-07 20:26] LABS: Alanine Aminotransferase 36 U/L (0-33); Albumin Level 3.6 g/dL (3.5-5.2); Alkaline Phosphatase 85 IU/L (35-105); Anion Gap 14.9 (5-19); Aspartate Amino Transferase 74 U/L (0-32); Blood Urea Nitrogen 19 mg/dL (6-20); Calcium 8.8 mg/dL (8.5-10.5); Carbon Dioxide 25 mmol/L (22-29); Chloride 105 mmol/L (98-107); Globulin 3.2 g/dL (1.3-4.6); Glomerular Filtration Rate 105.8 mL/min (90-130); Glucose 101 mg/dL (65-115); Lipase 68 U/L (13-60); Osmolality Calculated 294 mOsm/kg (285-295); Potassium 3.9 mmol/L (3.5-5.1); Sodium 141 mmol/L (136-145); Total Bilirubin 0.3 mg/dL (0.15-1.2); Total Protein 6.8 g/dL (6.6-8.7)
[2022-06-07 20:48] VITALS: BP 130/87; PULSE 80; O2SAT 98
== END 2022-06-07 20:49 | disposition home or self-care (01) ==
PROVIDERS: Physician Assistant; Emergency Provider Emergency Medicine
DX: R10.84 Generalized abdominal pain (principal); E11.9 Type 2 diabetes mellitus without complications; E78.5 Hyperlipidemia, unspecified; I10 Essential (primary) hypertension; Z87.891 Personal history of nicotine dependence
CPT/HCPCS: 80053; 81001; 83690; 85025; 96374; 96375; 99284; J1200; J2270; J2405; J2765

== ENCOUNTER 2022-06-11 12:57 | Emergency (ER) | payer MEDICARE, MEDICAID, SELFPAY ==
--- NOTE | 2022-06-11 13:19 | ECG_ITS ---
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 Measurements Intervals [place] Rate: 71 P: 34 DC: 163 QRS: 30 QRSD: 76 T: 23 QT: 386 QTc: 422 Interpretive Statements SINUS RHYTHM LOW QRS VOLTAGE IN PRECORDIAL LEADS [QRS DEFLECTION < 1.0 mV IN CHEST LEADS] POSSIBLE ANTERIOR MYOCARDIAL INFARCTION , PROBABLY OLD [30 ms Q WAVE IN V3/V4, OR R < 0.2 mV IN V4] Compared to ECG 03/10/2022 12:21:45 Myocardial infarct finding now present Sinus bradycardia no longer present Electronically Signed On 06-11-2022 21:13:55 CDT by Kaycee Britton M.D. [id number]
[2022-06-11 14:00] VITALS: BP 121/83; PULSE 72; RESP 16; TEMP 36.1; O2SAT 98; BMI 41.9
[2022-06-11 14:52] LABS: Basophils % 0.5 %; Eosinophils # 0.1 10^3/uL (0.0-0.8); Eosinophils % 1.5 %; Hemoglobin 14.7 g/dL (11.5-15.3); Lymphocytes # 2.1 10^3/uL (0.8-4.8); Lymphocytes % 26.7 %; Mean Corpuscular HGB Conc 32.7 g/dL (30.0-36.0); Mean Corpuscular Hemoglobin 29.5 pg (28.0-34.0); Mean Corpuscular Volume 90.4 fl (81-99); Mean Platelet Volume 9.4 fL (7.4-10.4); Monocytes # 0.5 10^3/uL (0.2-0.9); Monocytes % 6.2 %; Neutrophils % 64.8 %; Nucleated Red Blood Cells % 0 %; Platelet Count 258 10^3/cmm (130-400); Red Blood Count 4.98 10^6/uL (4.1-5.3); Red Cell Distribution Width 12.4 % (12.1-15.1); White Blood Count 7.9 10^3/uL (4.0-10.0)
[2022-06-11 15:21] LABS: Add Urine Microscopic? NO; Charge for UA Resulting for Rev
[2022-06-11 15:41] LABS: Bilirubin Urine Neg (Negative); Blood Urine Neg (Negative); Glucose Urine UA Norm (Normal); Ketones Urine Negative (Negative); Leukocyte Esterase Urine Negative (Negative); Nitrate Urine Negative (Negative); Protein Urine Neg (Negative); Specific Gravity, Urine 1.015 (1.005-1.030); Urine Appearance Clear (CLEAR); Urine Color Yellow (Yellow); Urobilinogen Urine Norm (Negative); pH Urine 5 (5-7)
[2022-06-11 16:00] LABS: Alanine Aminotransferase 30 U/L (0-33); Albumin Level 4.1 g/dL (3.5-5.2); Alkaline Phosphatase 98 IU/L (35-105); Anion Gap 15.2 (5-19); Aspartate Amino Transferase 25 U/L (0-32); Calcium 9.4 mg/dL (8.5-10.5); Carbon Dioxide 26 mmol/L (22-29); Chloride 103 mmol/L (98-107); Creatinine Clr Calc Pharmacy 125.6081; Globulin 3.2 g/dL (1.3-4.6); Glomerular Filtration Rate 88.6 mL/min (90-130); Glucose 109 mg/dL (65-115); Osmolality Calculated 294 mOsm/kg (285-295); Potassium 4.2 mmol/L (3.5-5.1); Sodium 140 mmol/L (136-145); Total Bilirubin 0.2 mg/dL (0.15-1.2); Total Protein 7.3 g/dL (6.6-8.7)
[2022-06-11 16:03] LABS: Troponin(5th) Baseline 6 ng/L (0-10)
[2022-06-11 16:09] LABS: Blood Urea Nitrogen 21 mg/dL (6-20); Lipase 71 U/L (13-60)
[2022-06-11 16:36] VITALS: BP 96/72; PULSE 65; RESP 16; O2SAT 96
--- NOTE | 2022-06-11 16:49 | ECG_ITS ---
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 Measurements Intervals [place] Rate: 67 P: 37 [place]: 141 QRS: 74 QRSD: 84 T: 13 QT: 402 QTc: 426 Interpretive Statements SINUS RHYTHM LOW QRS VOLTAGE IN PRECORDIAL LEADS [QRS DEFLECTION < 1.0 mV IN CHEST LEADS] POSSIBLE RIGHT VENTRICULAR CONDUCTION DELAY [RSR (QR) IN V1/V2] Compared to ECG 06/11/2022 14:10:23 Myocardial infarct finding no longer present Electronically Signed On 06-12-2022 6:47:36 CDT by Kaycee Britton M.D. [id number]
[2022-06-11 17:32] VITALS: BP 118/90; PULSE 58; O2SAT 100
--- NOTE | 2022-06-11 17:50 | CTR_ITS ---
PROCEDURE INFORMATION: Exam: CT Abdomen And Pelvis Without Contrast Exam date and time: 06/11/2022 6:59 PM Age: 52 years old Clinical indication: Vomiting; Prior surgery; Surgery date: 6+ months; Surgery type: Gastric bypass, hyst, gb; Additional info: Generalized abdominal pain/tenderness, n/v TECHNIQUE: Imaging protocol: Computed tomography of the abdomen and pelvis without contrast. Radiation optimization: All CT scans at this facility use at least one of these dose optimization techniques: automated exposure control; mA and/or kV adjustment per patient size (includes targeted exams where dose is matched to clinical indication); or iterative reconstruction. COMPARISON: CT abdomen pelvis w con* [id number] 01/11/2022 6:54 PM RADIATION DOSE METRICS: Total DLP (mGy-cm): 1465.4 FINDINGS: Lungs: A small 7 mm subpleural nodular density is present in the right lower lobe adjacent to the major fissure. The visualized lung bases are otherwise clear. Heart: The heart is normal in size. Liver: Small calcifications are again seen in the liver. No mass. Gallbladder and bile ducts: The gallbladder has been removed. No biliary ductal dilatation. Pancreas: Normal. No ductal dilation. Spleen: Normal. No splenomegaly. Adrenal glands: Normal. No mass. Kidneys and ureters: Normal. No renal stone or hydronephrosis. Stomach and bowel: Surgical changes of gastric bypass are appreciated. No intestinal obstruction. A large amount of stool is present in the colon. Appendix: The appendix is normal. Intraperitoneal space: Unremarkable. No free air. No significant fluid collection. Vasculature: Unremarkable. No abdominal aortic aneurysm. Lymph nodes: Unremarkable. No enlarged lymph nodes. Urinary bladder: Unremarkable as visualized. Reproductive: The uterus is absent. Bones/joints: Unremarkable. No acute fracture. Soft tissues: Unremarkable. CT/CT abdomen pelvis wo con [id number] IMPRESSION: 1. No acute abnormality is seen in the abdomen or pelvis. 2. Constipation. 3. Indeterminate subcentimeter right middle lobe nodule. Follow-up according to Fleischner criteria.
--- NOTE | 2022-06-11 17:53 | ED_ITS ---
HPI - Abdominal Pain General: Chief Complaint: Abdominal Pain Stated Complaint: stomach pain and vomitting Time Seen by Provider: 06/11/22 17:39 History of Present Illness: Patient is a 52-year-old female comes to the ED with abdominal pain. Patient was seen here in the ED for same complaint back on June 07. She states that after she was seen here on June 07 her abdominal pain and nausea vomiting improved but today she woke up and was having more pain all throughout her abdomen and was unable to keep any food or fluids down today. Pain is described as cramping type pain throughout her abdomen. She had a bowel movement yesterday that was normal but today she has not had a bowel movement. Associated Symptoms: Reports nausea and vomiting; Denies chills, constipation, diarrhea, dysuria, fever(s), hematochezia and hematuria Review of Systems Const: Denies: fever(s), chills or fatigue Eyes: Denies: change in vision or eye discomfort ENMT: Denies: throat pain, odynophagia, nasal discharge or nasal congestion Card: Denies: chest pain, palpitations, edema, swelling of feet/ankles, dyspnea on exertion or orthopnea Resp: Denies: dyspnea, productive cough or non-productive cough GI: Reports: abdominal pain, nausea and vomiting; Denies: diarrhea, constipation or hematochezia : Denies: flank pain, dysuria or hematuria Musc: Denies: neck pain, back pain or extremity swelling Skin/Breast: Denies: rash or new lesions Neuro: Denies: headache(s), numbness in extremities or weakness in extremities PFS ED PFSH: Medical History Acute serous otitis media of left ear Anxiety Borderline intellectual functioning Controlled type 2 diabetes mellitus, without long-term current use of insulin Depression Dizziness Dumping syndrome Dyslipidemia Enrolled in chronic care management Generalized anxiety disorder GERD (gastroesophageal reflux disease) Grief reaction Hypertension Hypothyroidism Nausea & vomiting Nausea & vomiting Obesity BHARAT (obstructive sleep apnea) Psychiatric care Seizure disorder Tinnitus Surgical History History of colonoscopy with polypectomy (~09/2018) History of esophagogastroduodenoscopy (EGD) (~09/2018) History of gastric bypass 2020- - [facility] History of hysterectomy with oophorectomy History of laparoscopic cholecystectomy History of placement of ear tubes Family History Grandmother Cancer Father Lung disease Diabetes Denies family history of Anesthesia complication Bleeding disorder Social History Smoking and tobacco status: never smoked Quit status (tobacco): has quit using tobacco Second hand smoke exposure: No Smoking risk assessment/counseling performed?: No Alcohol intake: never Desire information about alcohol rehabilitation?: No Counseling given: No Desire information about substance/drug rehabilitation?: No Counseling given: No Adopted: No Caregiver/support person: Yes Lives independently: Yes Housing: House Marital status: Single Highest education level completed: High School Graduate service: No Current occupational status: employed 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 Current occupational exposures/hazards: No Pets and animals: Yes History of recent travel: No Sexually active: Yes Ania/Pentecostalism: None Special ania needs: No Agree to transfusion: Yes Financial difficulty paying for basics: Not Very Hard Physical Exam Const: COMMON NORMALS: patient oriented x3 and alert GENERAL APPEARANCE: cooperative HENMT: COMMON NORMALS: normocephalic HEAD & SCALP: normocephalic MOUTH: Normal oral and palatal mucosa present THROAT: posterior oropharynx normal and uvula midline Eye: COMMON NORMALS: Equal, round and reactive pupils present PUPIL: Yes Equal, round and reactive pupils present Neck/C-Spine: COMMON NORMALS: supple GENERAL: Yes normal visual inspection Resp: COMMON NORMALS: normal respiratory effort, No retractions, No use of accessory muscles and clear to auscultation bilaterally AUSCULTATION: clear to auscultation bilaterally Cardio: COMMON NORMALS: regular rate, regular rhythm, S1 normal heart sound present, S2 normal heart sound present, No gallops present (Cardio), No clicks present (Cardio), No murmurs present (Cardio) and Peripheral pulses 2+ throughout RATE: regular rate RHYTHM: regular rhythm HEART SOUNDS: S1 normal heart sound present and S2 normal heart sound present PERIPHERAL PULSES: Peripheral pulses 2+ throughout GI: COMMON NORMALS: Normal to inspection, nondistended, normoactive bowel sounds present, Soft to palpation and no masses INSPECTION: Yes central obesity PALPATION: Yes Soft to palpation and Yes Tenderness to palpation present (GI) Details: other (Generalized tenderness throughout abdomen) : COMMON NORMALS: Yes no CVA tenderness BLADDER/KIDNEY EXAM: Yes no CVA tenderness Back/Pelvis: COMMON NORMALS: no CVA tenderness Extremity: COMMON NORMALS: normal to inspection Neuro: COMMON NORMALS: patient oriented x3 SENSORIUM/ORIENTATION: Yes alert GAIT: Yes Normal gait present Skin: GENERAL SKIN EXAM: dry skin Course Vital Signs: Vital signs: Vital Signs Temperature 97.5 F L 06/11/22 18:03 Pulse Rate 63 06/11/22 21:31 Respiratory Rate 16 06/11/22 21:31 Blood Pressure 140/80 06/11/22 21:31 Pulse Oximetry 100 06/11/22 21:31 Oxygen Delivery Me thod 06/11/22 18:03 MDM - Abdominal Pain Medical Decision Making Patient is a 52-year-old female comes to the ED with abdominal pain. Patient was seen here in the ED for same complaint back on June 07. She states that after she was seen here on June 07 her abdominal pain and nausea vomiting improved but today she woke up and was having more pain all throughout her abdomen and was unable to keep any food or fluids down today. Pain is described as cramping type pain throughout her abdomen. Vitals are stable and patient is afebrile. Patient has some mild generalized tenderness throughout her abdomen but rest of exam is benign. CBC and CMP is unremarkable. UA shows no signs of any UTI or blood. CT of abdomen pelvis shows some mild constipation but no acute abnormalities noted. There is a small right middle lobe lung nodule seen on CT scan that further imaging in 6 months is recommended. I p laced an order with case management for patient to be referred to Dr. Rasmussen for further evaluation of lung nodule. Patient was told about lung nodule and told that she should let her PCP know about CT findings that have a follow-up CT of the lungs done within the next 6 months for reevaluation. Patient was diagnosed with constipation and lung nodule. She was discharged home with some MiraLAX. Patient given strict return to ED precautions. She was told to take her prescribed antinausea meds to help with symptoms at home. Patient understood agree with plan. Lab Data I reviewed the patient's lab results. : 06/11/22 14:35 06/11/22 Unknown Labs/Radiology: Radiology Impressions Abdomen/Pelvis CT 06/11/22 17:50 IMPRESSION: 1. No acute abnormality is seen in the abdomen or pelvis. 2. Constipation. 3. Indeterminate subcentimeter right middle lobe nodule. Follow-up according to Fleischner criteria. Laboratory Results WBC 7.9 10^3/uL (4.0-10.0) 06/11/22 14:35 RBC 4.98 10^6/uL (4.1-5.3) 06/11/22 14:35 Hgb 14.7 g/dL (11.5-15.3) 06/11/22 14:35 Hct 45.0 % (37.0-47.0) 06/11/22 14:35 MCV 90.4 fl (81-99) 06/11/22 14:35 MCH 29.5 pg (28.0-34.0) 06/11/22 14:35 MCHC 32.7 g/dL (30.0-36.0) 06/11/22 14:35 RDW 12.4 % (12.1-15.1) 06/11/22 14:35 Plt Count 258 10^3/cmm (130-400) 06/11/22 14:35 MPV 9.4 fL (7.4-10.4) 06/11/22 14:35 Neut % (Auto) 64.8 % 06/11/22 14:35 Lymph % (Auto) 26.7 % 06/11/22 14:35 [place] % (Auto) 6.2 % 06/11/22 14:35 Eos % (Auto) 1.5 % 06/11/22 14:35 Baso % (Auto) 0.5 % 06/11/22 14:35 Neut # (Auto) 5.10 10^3/uL (1.8-7.7) 06/11/22 14:35 Lymph # (Auto) 2.1 10^3/uL (0.8-4.8) 06/11/22 14:35 [place] # (Auto) 0.5 10^3/uL (0.2-0.9) 06/11/22 14:35 Eos # (Auto) 0.1 10^3/uL (0.0-0.8) 06/11/22 14:35 Baso # (Auto) 0.0 10^3/uL (0.0-0.1) 06/11/22 14:35 Nucleated RBC % (auto) 0 % 06/11/22 14:35 Nucleated RBCs # 0.0 /100WBC 06/11/22 14:35 Sodium 140 mmol/L (136-145) 06/11/22 Unknown Potassium 4.2 mmol/L (3.5-5.1) 06/11/22 Unknown Chloride 103 mmol/L (98-107) 06/11/22 Unknown Carbon Dioxide 26 mmol/L (22-29) 06/11/22 Unknown Anion Gap 15.2 (5-19) 06/11/22 Unknown BUN 21 mg/dL (6-20) H 06/11/22 Unknown Creatinine 0.7 mg/dL (0.5-0.9) 06/11/22 Unknown GFR Calculation 88.6 mL/min (90-130) L 06/11/22 Unknown Glucose 109 mg/dL (65-115) 06/11/22 Unknown Calculated Osmolality 294 mOsm/kg (285-295) 06/11/22 Unknown Calcium 9.4 mg/dL (8.5-10.5) 06/11/22 Unknown Total Bilirubin 0.2 mg/dL (0.15-1.2) 06/11/22 Unknown AST 25 U/L (0-32) 06/11/22 Unknown ALT 30 U/L (0-33) 06/11/22 Unknown Alkaline Phosphatase 98 IU/L (35-105) 06/11/22 Unknown Troponin T Baseline 6 ng/L (0-10) 06/11/22 15:13 Troponin T 120 Minute 6.00 ng/L (0-10) 06/11/22 17:52 Delta Troponin T 0 ABS# (0-10) 06/11/22 17:52 Total Protein 7.3 g/dL (6.6-8.7) 06/11/22 Unknown Albumin 4.1 g/dL (3.5-5.2) 06/11/22 Unknown Globulin 3.2 g/dL (1.3-4.6) 06/11/22 Unknown Lipase 71 U/L (13-60) H 06/11/22 Unknown Urine Color Yellow (Yellow) 06/11/22 15:13 Urine Appearance Clear (CLEAR) 06/11/22 15:13 Urine pH 5 (5-7) 06/11/22 15:13 Ur Specific [place] 1.015 (1.005-1.030) 06/11/22 15:13 Urine Protein Neg (Negative) 06/11/22 15:13 Urine Glucose (UA) Norm (Normal) 06/11/22 15:13 Urine Ketones Negative (Negative) 06/11/22 15:13 Urine Blood Neg (Negative) 06/11/22 15:13 Urine Nitrate Negative (Negative) 06/11/22 15:13 Urine Bilirubin Neg (Negative) 06/11/22 15:13 Urine Urobilinogen Norm mg/dL (Negative) 06/11/22 15:13 Ur Leukocyte Esterase Negative (Negative) 06/11/22 15:13 Discharge Plan Discharge Patient Disposition: Home Clinical Impression: Constipation, Incidental lung nodule, > 3mm and < 8mm Condition: Stable Prescriptions: New Miralax 17 gram/dose powder 17 g PO DAILY PRN (Reason: constipation) Qty: 119 0RF No Action montelukast [Singulair] 10 mg tablet 10 mg PO DAILY Qty: 90 1RF docusate sodium 100 mg capsule 100 mg PO PRN levothyroxine 100 mcg capsule 112 mcg PO DAILY ofloxacin 0.3 % drops 2 drp otic (ear) ONCE PRN (Reason: Tubes in tympanic membranes) Qty: 10 12RF Rx Instructions: Apply 2 drops to each ear after water exposure citalopram [Celexa] 20 mg tablet 20 mg PO DAILY Qty: 30 1RF buspirone 15 mg tablet 15 mg PO TID Qty: 90 1RF fluconazole 150 mg tablet 150 mg PO Q3D Qty: 2 0RF pantoprazole [Protonix] 40 mg tablet,delayed release (DR/EC) 40 mg PO DAILY Qty: 30 0RF ciprofloxacin-dexamethasone [Ciprodex] 0.3-0.1 % drops,suspension 4 drp otic (ear) BID Qty: 7.5 3RF ciprofloxacin HCl 500 mg tablet 500 mg PO BID liothyronine 5 mcg tablet 5 mcg PO DAILY acetaminophen [Tylenol Extra Strength] 500 mg Tablet 1,000 mg PO PRN hydroxyzine pamoate 50 mg capsule 50 mg PO TID PRN (Reason: anxiety) Qty: 14 0RF triamcinolone acetonide 0.1 % ointment 1 applic topical BID PRN (Reason: Rash) Rx Instructions: Apply to affected area no more than 2 weeks per month. Not for face ondansetron 4 mg tablet,disintegrating 4 mg PO Q6H PRN (Reason: nausea and vomiting) Qty: 14 0RF meclizine 25 mg tablet 25 mg PO TID PRN (Reason: dizziness) Qty: 14 0RF ondansetron 4 mg tablet,disintegrating 4 mg PO Q6H PRN (Reason: nausea and vomiting) Qty: 14 0RF Discharge Orders: Discharge ED (Routine); Ordered 06/11/22 Ordered By: Khris Craig Discharge Diet: Advance as tolerated Discharge Activity: Increase activity as tolerated Activity Restrictions/Additional Instructions: Follow-up with medical provider as directed. Contact your PCP and get an appointment set up with them within the next week for reevaluation. Also let your PCP know about the incidental lung nodule finding and that we will need follow-up CT imaging probably within the next 6 months. I also put in an order with case management for you to be referred to the student dean Dr. Rasmussen to check on lung nodule as well. Take medications as prescribed. Return to the ER or your medical provider if condition worsens. Please read and understand discharge instructions. Thank you for choosing [facility] for your healthcare needs today. Please realize this is an emergency room and that we are providing you with a medical screening exam and this may not be complete and all inclusive of all the testing and or work up that you may need to determine your ailment or severity of your illness. It is very important that you follow up as instructed or that you return to the Emergency Department should you have concerns or if your condition changes or worsens in any way. Coding Level of Care Code ED Drilling Rig Operator for Robyn Ruiz Exam Comprehensive
[2022-06-11] MEDS: sodium chloride 0.9% 500 ML 999 ML IV (17:59)
[2022-06-11] MEDS: ondansetron 2 mg/ML SDV 2 mL 4 MG IVP (17:59)
[2022-06-11 18:03] VITALS: BP 143/96; PULSE 58; RESP 17; TEMP 36.4; O2SAT 100
[2022-06-11 18:48] LABS: Troponin 5 2HR Delta 0 ABS# (0-10)
[2022-06-11 19:42] VITALS: BP 148/94; PULSE 56; RESP 16; O2SAT 100
[2022-06-11 21:31] VITALS: BP 140/80; PULSE 63; RESP 16; O2SAT 100
--- NOTE | 2022-06-12 20:30 | DCPLANNER ---
Addendum entered by Katia Alarcon 07/02/22 16:32: Patient had a follow up appointment scheduled with pulmonology - patient did attend appointment. Addendum entered by Katia Alarcon 06/21/22 11:42: Patient has a follow up appointment scheduled for Friday, June 26, 2022 at 10:[address] Rasmussen at [facility]. Clinic will call patient with appointment information. Original Note: store sales manager had message to schedule a follow up appointment for patient at pulomonology. store sales manager sent patients information to the front office staff at [facility]. Patients information will be printed and reviewed. Clinic will call patient with appointment information.
== END 2022-06-11 20:45 | disposition home or self-care (01) ==
PROVIDERS: Emergency Medicine; Emergency Provider Physician Assistant
DX: K59.00 Constipation, unspecified (principal); R91.1 Solitary pulmonary nodule; Z87.891 Personal history of nicotine dependence; E11.9 Type 2 diabetes mellitus without complications; E78.5 Hyperlipidemia, unspecified; I10 Essential (primary) hypertension
CPT/HCPCS: 74176; 80053; 81003; 83690; 84484; 85025; 93005; 96361; 96374; 99285; J2405; J7040

== ENCOUNTER 2022-06-24 06:12 | Emergency (ER) | payer MEDICARE, MEDICAID, SELFPAY ==
[2022-06-24 06:23] VITALS: BP 122/74; PULSE 66; RESP 18; TEMP 36.4; O2SAT 98; BMI 44.1
[2022-06-24 06:28] VITALS: BP 132/90; PULSE 59; RESP 17; O2SAT 99
--- NOTE | 2022-06-24 06:38 | W.ED.NAVMDI ---
HPI - Nausea/Vomiting/Diarrhea General: Chief complaint: Nausea/Vomiting/Diarrhea Stated complaint: diarrhea Time Seen by Provider: 06/24/22 06:35 Source: patient Mode of arrival: ambulatory Limitations: no limitations History of Present Illness: 52-year-old female presents emergency room complaining of diarrhea for the last several days. Patient states she has had 10 watery stools in the last 4 days. She had a small amount of blood when she wiped after stool but no katlin bright red blood in the stool. 2 weeks ago she was seen in the emergency room had a CT done and showed constipation she was started on MiraLAX. She states she stopped taking the MiraLAX has been taking dicyclomine she had seen her doctor after the last ER visit and they stopped the MiraLAX that she been taking. She was told her symptoms were due to irritable bowel. And she seems to be fluctuating from constipation to diarrhea. She has not had any recent antibiotic usage. She came in this morning because she had a episode of diarrhea that was uncontrollable while she was lying on a couch. MD elicited complaint: diarrhea Pertinent past history: other (Irritable bowel) Onset (ago): day(s) (4) Description of diarrhea: watery Associated nausea: No Associated abdominal pain: No Location of pain: None Exacerbating factors: none Relieving factors: none Associated symtoms: Denies altered mental status, anxiety, bloating, change in vision, chest pain, cough, diaphoresis, decreased urine output, dizziness, dysuria, epistaxis, fatigue, fecal incontinence, fevers/chills, headache(s), anorexia, malaise, myalgias, nausea, numbness, palpitations, rash, short of breath, syncope, tenesmus, tinnitus or weakness Review of Systems Const: Denies: fever(s), chills, fatigue, malaise or diaphoresis Eyes: Denies: change in vision ENMT: Denies: tinnitus or epistaxis Card: Denies: chest pain, palpitations or syncope Resp: Denies: dyspnea, productive cough or non-productive cough GI: Reports: diarrhea; Denies: abdominal pain, nausea, bloating or fecal incontinence : Denies: flank pain, difficulty voiding, dysuria, urinary frequency or urinary urgency Musc: Denies: neck pain or back pain Skin/Breast: Denies: rash or pruritus Neuro: Denies: headache(s) or dizziness Psych: Denies: anxiety PFSH ED PFSH: Medical History Acute serous otitis media of left ear Anxiety Borderline intellectual functioning Controlled type 2 diabetes mellitus, without long-term current use of insulin Depression Dizziness Dumping syndrome Dyslipidemia Enrolled in chronic care management Generalized anxiety disorder GERD (gastroesophageal reflux disease) Grief reaction Hypertension Hypothyroidism Nausea & vomiting Nausea & vomiting Obesity BHARAT (obstructive sleep apnea) Psychiatric care Seizure disorder Tinnitus Surgical History History of colonoscopy with polypectomy (~09/2018) History of esophagogastroduodenoscopy (EGD) (~09/2018) History of gastric bypass History of hysterectomy with oophorectomy History of laparoscopic cholecystectomy History of placement of ear tubes Family History Grandmother Cancer Father Lung disease Diabetes Denies family history of Anesthesia complication Bleeding disorder Social History Smoking and tobacco status: never smoked Quit status (tobacco): has quit using tobacco Second hand smoke exposure: No Smoking risk assessment/counseling performed?: No Alcohol intake: never Desire information about alcohol rehabilitation?: No Counseling given: No Desire information about substance/drug rehabilitation?: No Counseling given: No Adopted: No Caregiver/support person: Yes Lives independently: Yes Housing: House Marital status: Single Highest education level completed: High School Graduate service: No Current occupational status: employed 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 Current occupational exposures/hazards: No Pets and animals: Yes History of recent travel: No Sexually active: Yes Ania/Holiness: None Special ania needs: No Agree to transfusion: Yes Financial difficulty paying for basics: Not Very Hard Physical Exam Const: COMMON NORMALS: no acute distress EXAM LIMITATIONS: no altered mental status GENERAL APPEARANCE: cooperative and comfortable ORIENTATION/CONSCIOUSNESS: Yes awake, Yes oriented to person, Yes oriented to place and Yes oriented to time HENMT: COMMON NORMALS: normocephalic, atraumatic and hearing grossly normal bilaterally HEAD & SCALP: normocephalic and atraumatic Eye: COMMON NORMALS: Equal, round and reactive pupils present, EOMs intact bilaterally, conjunctivae normal and no scleral icterus CONJUNCTIVA: Yes conjunctivae normal PUPIL: Yes Equal, round and reactive pupils present Neck/C-Spine: COMMON NORMALS: full ROM, no lymphadenopathy, supple and no JVD Lymph: LYMPHATIC: no lymphadenopathy noted and no lymphedema noted Resp: COMMON NORMALS: normal respiratory effort, No retractions, No use of accessory muscles and clear to auscultation bilaterally AUSCULTATION: clear to auscultation bilaterally Cardio: COMMON NORMALS: no JVD, regular rate, regular rhythm and No murmurs present (Cardio) RATE: regular rate RHYTHM: regular rhythm GI: COMMON NORMALS: Soft to palpation and No hepatosplenomegaly present AUSCULTATION: Yes normoactive bowel sounds PALPATION: Yes Soft to palpation, No Tenderness to palpation present (GI), No Guarding due to palpation present (GI) and Yes No hepatosplenomegaly present Extremity: COMMON NORMALS: normal to inspection, capillary refill normal, no clubbing, cyanosis or edema, no calf tenderness and no pedal edema Neuro: SENSORIUM/ORIENTATION: Yes oriented to person, Yes oriented to place and Yes oriented to time Skin: COMMON NORMALS: no rashes or lesions noted GENERAL SKIN EXAM: no rashes or lesions noted Course Vital Signs: Vital signs: Vital Signs Temperature 97.5 F L 06/24/22 06:23 Pulse Rate 59 L 06/24/22 06:28 Respiratory Rate 17 06/24/22 06:28 Blood Pressure 132/90 06/24/22 06:28 Pulse Oximetry 99 06/24/22 06:28 Oxygen Delivery Me thod 06/24/22 06:28 MDM - Nausea/Vomiting/Diarrhea Medical Decision Making Labs unremarkable in the emergency room reviewed with the patient. She is still having a little bit of loose stool but she states it has decreased. I think this point she can hold the MiraLAX. She has not recently been on any antibiotics stool is not mucousy do not believe she has C. difficile. This just started overnight. Recommend clear liquid diet for 24 to 48 hours follow-up with her primary care doctor. She may need further evaluation for irritable bowel depending on whether or not her symptoms persist or resolve spontaneously. No emergent condition present at this time. Medical Records I reviewed the patient's medical records. Lab Data I reviewed the patient's lab results. : 06/24/22 06:32 06/24/22 06:32 Laboratory Results WBC 6.5 10^3/uL (4.0-10.0) 06/24/22 06:32 RBC 4.67 10^6/uL (4.1-5.3) 06/24/22 06:32 Hgb 13.8 g/dL (11.5-15.3) 06/24/22 06:32 Hct 41.9 % (37.0-47.0) 06/24/22 06:32 MCV 89.7 fl (81-99) 06/24/22 06:32 MCH 29.6 pg (28.0-34.0) 06/24/22 06:32 MCHC 32.9 g/dL (30.0-36.0) 06/24/22 06:32 RDW 12.5 % (12.1-15.1) 06/24/22 06:32 Plt Count 210 10^3/cmm (130-400) 06/24/22 06:32 MPV 9.1 fL (7.4-10.4) 06/24/22 06:32 Neut % (Auto) 66.0 % 06/24/22 06:32 Lymph % (Auto) 21.5 % 06/24/22 06:32 [place] % (Auto) 9.1 % 06/24/22 06:32 Eos % (Auto) 2.6 % 06/24/22 06:32 Baso % (Auto) 0.6 % 06/24/22 06:32 Neut # (Auto) 4.30 10^3/uL (1.8-7.7) 06/24/22 06:32 Lymph # (Auto) 1.4 10^3/uL (0.8-4.8) 06/24/22 06:32 [place] # (Auto) 0.6 10^3/uL (0.2-0.9) 06/24/22 06:32 Eos # (Auto) 0.2 10^3/uL (0.0-0.8) 06/24/22 06:32 Baso # (Auto) 0.0 10^3/uL (0.0-0.1) 06/24/22 06:32 Nucleated RBC % (auto) 0 % 06/24/22 06:32 Nucleated RBCs # 0.0 /100WBC 06/24/22 06:32 Sodium 140 mmol/L (136-145) 06/24/22 06:32 Potassium 3.7 mmol/L (3.5-5.1) 06/24/22 06:32 Chloride 106 mmol/L (98-107) 06/24/22 06:32 Carbon Dioxide 24 mmol/L (22-29) 06/24/22 06:32 Anion Gap 13.7 (5-19) 06/24/22 06:32 BUN 12 mg/dL (6-20) 06/24/22 06:32 Creatinine 0.7 mg/dL (0.5-0.9) 06/24/22 06:32 GFR Calculation 88.6 mL/min (90-130) L 06/24/22 06:32 Glucose 101 mg/dL (65-115) 06/24/22 06:32 Calculated Osmolality 290 mOsm/kg (285-295) 06/24/22 06:32 Calcium 8.7 mg/dL (8.5-10.5) 06/24/22 06:32 Total Bilirubin 0.3 mg/dL (0.15-1.2) 06/24/22 06:32 AST 20 U/L (0-32) 06/24/22 06:32 ALT 23 U/L (0-33) 06/24/22 06:32 Alkaline Phosphatase 89 IU/L (35-105) 06/24/22 06:32 Total Protein 6.6 g/dL (6.6-8.7) 06/24/22 06:32 Albumin 3.6 g/dL (3.5-5.2) 06/24/22 06:32 Globulin 3.0 g/dL (1.3-4.6) 06/24/22 06:32 Discharge Plan Discharge Patient Disposition: Home Clinical Impression: Diarrhea, Irritable bowel syndrome Condition: Stable Prescriptions: No Action montelukast [Singulair] 10 mg tablet 10 mg PO DAILY Qty: 90 1RF docusate sodium 100 mg capsule 100 mg PO PRN levothyroxine 100 mcg capsule 112 mcg PO DAILY ofloxacin 0.3 % drops 2 drp otic (ear) ONCE PRN (Reason: Tubes in tympanic membranes) Qty: 10 12RF Rx Instructions: Apply 2 drops to each ear after water exposure citalopram [Celexa] 20 mg tablet 20 mg PO DAILY Qty: 30 1RF buspirone 15 mg tablet 15 mg PO TID Qty: 90 1RF fluconazole 150 mg tablet 150 mg PO Q3D Qty: 2 0RF pantoprazole [Protonix] 40 mg tablet,delayed release (DR/EC) 40 mg PO DAILY Qty: 30 0RF liothyronine 5 mcg tablet 5 mcg PO DAILY acetaminophen [Tylenol Extra Strength] 500 mg Tablet 1,000 mg PO PRN hydroxyzine pamoate 50 mg capsule 50 mg PO TID PRN (Reason: anxiety) Qty: 14 0RF triamcinolone acetonide 0.1 % ointment 1 applic topical BID PRN (Reason: Rash) Rx Instructions: Apply to affected area no more than 2 weeks per month. Not for face ondansetron 4 mg tablet,disintegrating 4 mg PO Q6H PRN (Reason: nausea and vomiting) Qty: 14 0RF meclizine 25 mg tablet 25 mg PO TID PRN (Reason: dizziness) Qty: 14 0RF ondansetron 4 mg tablet,disintegrating 4 mg PO Q6H PRN (Reason: nausea and vomiting) Qty: 14 0RF Miralax 17 gram/dose powder 17 g PO DAILY PRN (Reason: constipation) Qty: 119 0RF Discharge Orders: Discharge ED (Routine); Ordered 06/24/22 Ordered By: Madan Hatfield Discharge Diet: Clear Liquid Patient Instructions: Clear Liquid Diet (ED), Opioid Safety Activity Restrictions/Additional Instructions: Clear liquid diet for 1 to 2 days then advance as tolerated. Follow-up with your primary care doctor within the next 4 to 5 days. Hold MiraLAX until you follow-up with your primary care doctor. Coding Level of Care Code ED Marker Machine for Robyn Fwd Exam Comprehensive
[2022-06-24 07:17] LABS: Basophils % 0.6 %; Eosinophils # 0.2 10^3/uL (0.0-0.8); Eosinophils % 2.6 %; Hematocrit 41.9 % (37.0-47.0); Hemoglobin 13.8 g/dL (11.5-15.3); Lymphocytes # 1.4 10^3/uL (0.8-4.8); Lymphocytes % 21.5 %; Mean Corpuscular HGB Conc 32.9 g/dL (30.0-36.0); Mean Corpuscular Hemoglobin 29.6 pg (28.0-34.0); Mean Corpuscular Volume 89.7 fl (81-99); Mean Platelet Volume 9.1 fL (7.4-10.4); Monocytes # 0.6 10^3/uL (0.2-0.9); Monocytes % 9.1 %; Nucleated Red Blood Cells % 0 %; Platelet Count 210 10^3/cmm (130-400); Red Blood Count 4.67 10^6/uL (4.1-5.3); Red Cell Distribution Width 12.5 % (12.1-15.1); White Blood Count 6.5 10^3/uL (4.0-10.0)
[2022-06-24] MEDS: sodium chloride 0.9% 1,000 ML 999 ML IV (07:21)
[2022-06-24 07:37] LABS: Alanine Aminotransferase 23 U/L (0-33); Albumin Level 3.6 g/dL (3.5-5.2); Alkaline Phosphatase 89 IU/L (35-105); Anion Gap 13.7 (5-19); Aspartate Amino Transferase 20 U/L (0-32); Blood Urea Nitrogen 12 mg/dL (6-20); Calcium 8.7 mg/dL (8.5-10.5); Carbon Dioxide 24 mmol/L (22-29); Chloride 106 mmol/L (98-107); Glomerular Filtration Rate 88.6 mL/min (90-130); Glucose 101 mg/dL (65-115); Osmolality Calculated 290 mOsm/kg (285-295); Potassium 3.7 mmol/L (3.5-5.1); Sodium 140 mmol/L (136-145); Total Bilirubin 0.3 mg/dL (0.15-1.2); Total Protein 6.6 g/dL (6.6-8.7)
[2022-06-24 08:21] VITALS: BP 137/81; PULSE 65; RESP 22; O2SAT 100
== END 2022-06-24 08:23 | disposition home or self-care (01) ==
PROVIDERS: Emergency Provider Family Medicine
DX: K58.0 Irritable bowel syndrome with diarrhea (principal); Z87.891 Personal history of nicotine dependence; E11.9 Type 2 diabetes mellitus without complications; E78.5 Hyperlipidemia, unspecified; I10 Essential (primary) hypertension
CPT/HCPCS: 80053; 85025; 96360; 99284; J7030

== ENCOUNTER → 2022-06-26 09:16 | Outpatient (BNVA) | payer MEDICARE, MEDICAID, SELFPAY | PROVIDERS: PCP Nurse Practitioner Family; Visit Provider Internal Medicine Critical Care Medicine | DX: R91.1 Solitary pulmonary nodule (principal) | CPT/HCPCS: 99203 ==

== ENCOUNTER → 2022-07-01 10:16 | Outpatient (BNVA) | payer MEDICARE, MEDICAID, SELFPAY | PROVIDERS: PCP Nurse Practitioner Family; Visit Provider Otolaryngology | DX: H90.6 Mixed conductive and sensorineural hearing loss, bilateral (principal); H66.93 Otitis media, unspecified, bilateral; H69.83 Other specified disorders of Eustachian tube, bilateral | CPT/HCPCS: 99213 ==

== ENCOUNTER → 2022-07-03 08:08 | Outpatient (BNVA) | payer MEDICARE, MEDICAID, SELFPAY | PROVIDERS: PCP Nurse Practitioner Family; Visit Provider Nurse Practitioner Family | DX: N30.20 Other chronic cystitis without hematuria (principal) | CPT/HCPCS: 81003; 87077; 87086; 87186; 99203 ==

== ENCOUNTER 2022-07-04 16:43 | Emergency (ER) | payer MEDICARE, MEDICAID, SELFPAY ==
[2022-07-04 16:59] VITALS: BP 140/89; PULSE 72; RESP 16; TEMP 36.3; O2SAT 97; BMI 41.1
[2022-07-04 17:17] VITALS: BP 140/89; PULSE 72; RESP 16; TEMP 36.3; O2SAT 97
--- NOTE | 2022-07-04 17:21 | ED_ITS ---
HPI - Nausea/Vomiting/Diarrhea General: Chief complaint: Nausea/Vomiting/Diarrhea Stated complaint: Lethargic, Diarrhea Time Seen by Provider: 07/04/22 17:20 History of Present Illness: 82-year-old female comes in today for complaints of diarrhea. Patient has a history of dumping syndrome. Patient is concerned she might be dehydrated. Patient appears in no pain. Patient appears nontoxic. Patient also reports that she was seen at Dr. Hernadez's office yesterday and they had ordered a urine culture for evaluation of abnormalities on her urine. Associated symtoms: Denies chest pain Review of Systems Const: Denies: fever(s) Card: Denies: chest pain Resp: Denies: dyspnea GI: Reports: diarrhea; Denies: vomiting PFSH ED PFSH: Medical History Acute serous otitis media of left ear Anxiety Borderline intellectual functioning Controlled type 2 diabetes mellitus, without long-term current use of insulin Depression Dizziness Dumping syndrome Dyslipidemia Enrolled in chronic care management Generalized anxiety disorder GERD (gastroesophageal reflux disease) Grief reaction Hypertension Hypothyroidism Nausea & vomiting Nausea & vomiting Obesity BHARAT (obstructive sleep apnea) Psychiatric care Recurrent UTI Seizure disorder Tinnitus Urinary tract infection with hematuria Surgical History History of colonoscopy with polypectomy (~09/2018) History of esophagogastroduodenoscopy (EGD) (~09/2018) History of gastric bypass History of hysterectomy with oophorectomy History of laparoscopic cholecystectomy History of placement of ear tubes Family History Grandmother Cancer Father , at age 62 Lung disease Diabetes COPD (chronic obstructive pulmonary disease) Mother Rheumatic arteritis Depression Denies family history of Anesthesia complication Bleeding disorder Social History Smoking and tobacco status: never smoked Quit status (tobacco): has quit using tobacco Second hand smoke exposure: No Smoking risk assessment/counseling performed?: No Alcohol intake: never Desire information about alcohol rehabilitation?: No Counseling given: No Desire information about substance/drug rehabilitation?: No Counseling given: No Adopted: No Caregiver/support person: Yes Lives independently: Yes Housing: House Marital status: Single Highest education level completed: High School Graduate service: No Current occupational status: disabled Current occupational exposures/hazards: No Pets and animals: Yes History of recent travel: No Sexually active: Yes Ania/Pentecostal: None Special ania needs: No Agree to transfusion: Yes Financial difficulty paying for basics: Not Very Hard Physical Exam Const: COMMON NORMALS: alert HENMT: COMMON NORMALS: normocephalic HEAD & SCALP: normocephalic MOUTH: Normal oral and palatal mucosa present (Mildly parched) Neck/C-Spine: COMMON NORMALS: full ROM Resp: COMMON NORMALS: normal respiratory effort and clear to auscultation bilaterally AUSCULTATION: clear to auscultation bilaterally Cardio: COMMON NORMALS: regular rate and regular rhythm RATE: regular rate RHYTHM: regular rhythm GI: COMMON NORMALS: Soft to palpation and non-tender AUSCULTATION: Yes normoactive bowel sounds PALPATION: Yes Soft to palpation Extremity: COMMON NORMALS: no pedal edema Neuro: SENSORIUM/ORIENTATION: Yes alert Skin: COMMON NORMALS: turgor normal GENERAL SKIN EXAM: turgor normal Course 2 Vital Signs: Vital signs: Vital Signs Temperature 97.3 F L 07/04/22 17:17 Pulse Rate 72 07/04/22 17:17 Respiratory Rate 16 07/04/22 17:17 Blood Pressure 140/89 07/04/22 17:17 Pulse Oximetry 97 07/04/22 17:17 MDM - Nausea/Vomiting/Diarrhea Medical Decision Making 52-year-old female comes in today for complaints of diarrhea and feeling of dehydration. Patient reports that she is has felt fatigued today and has not be en drinking a lot of fluids. Patient reported that yesterday Dr. Hernadez found some abnormalities in her urine and had done a culture. Patient denies any pain. Patient reports diarrhea is uncontrollable. On exam patient appears nontoxic. Abdomen soft nontender. Bowel sounds are normal active. Vital signs are normal. Differential diagnosis includes dehydration, chronic diarrhea, anxiety about health. Laboratory values were unremarkable. Patient was given 2 tablets of Lomotil and recommended to use 1 tablet 3 times a day as needed for diarrhea. Patient was recommended to follow-up with Dr. Hernadez regarding the culture of the urine. Return to ER for worsening symptoms. Patient reported understanding. Lab Data : 07/04/22 17:55 07/04/22 17:55 Laboratory Results WBC 7.0 10^3/uL (4.0-10.0) 07/04/22 17:55 RBC 4.67 10^6/uL (4.1-5.3) 07/04/22 17:55 Hgb 13.7 g/dL (11.5-15.3) 07/04/22 17:55 Hct 42.5 % (37.0-47.0) 07/04/22 17: MCV 91.0 fl (81-99) 07/04/22 17:55 MCH 29.3 pg (28.0-34.0) 07/04/22 17: MCHC 32.2 g/dL (30.0-36.0) 07/04/22 17: RDW 13.0 % (12.1-15.1) 07/04/22 17:55 Plt Count 232 10^3/cmm (130-400) 07/04/22 17: MPV 9.0 fL (7.4-10.4) 07/04/22 17:55 Neut % (Auto) 63.9 % 07/04/22 17:55 Lymph % (Auto) 28.6 % 07/04/22 17:55 [place] % (Auto) 5.7 % 07/04/22 17:55 Eos % (Auto) 1.1 % 07/04/22 17:55 Baso % (Auto) 0.4 % 07/04/22 17:55 Neut # (Auto) 4.50 10^3/uL (1.8-7.7) 07/04/22 17: Lymph # (Auto) 2.0 10^3/uL (0.8-4.8) 07/04/22 17:55 Bay # (Auto) 0.4 10^3/uL (0.2-0.9) 07/04/22 17:55 Eos # (Auto) 0.1 10^3/uL (0.0-0.8) 07/04/22 17:55 Baso # (Auto) 0.0 10^3/uL (0.0-0.1) 07/04/22 17:55 Nucleated RBC % (auto) 0 % 07/04/22 17: Nucleated RBCs # 0.0 /100WBC 08/25/22 17:55 Sodium 141 mmol/L (136-145) 07/04/22 17:55 Potassium 4.0 mmol/L (3.5-5.1) 07/04/22 17:55 Chloride 105 mmol/L (98-107) 07/04/22 17:55 Carbon Dioxide 26 mmol/L (22-29) 07/04/22 17:55 Anion Gap 14.0 (5-19) 07/04/22 17:55 BUN 14 mg/dL (6-20) 07/04/22 17:55 Creatinine 0.6 mg/dL (0.5-0.9) 07/04/22 17:55 GFR Calculation 105.8 mL/min (90-130) 07/04/22 17:55 Glucose 94 mg/dL (65-115) 07/04/22 17:55 Calculated Osmolality 292 mOsm/kg (285-295) 07/04/22 17:55 Calcium 8.7 mg/dL (8.5-10.5) 07/04/22 17:55 Total Bilirubin 0.2 mg/dL (0.15-1.2) 07/04/22 17:55 AST 20 U/L (0-32) 07/04/22 17:55 ALT 30 U/L (0-33) 07/04/22 17:55 Alkaline Phosphatase 85 U/L (35-105) 07/04/22 17:55 Total Protein 7.2 g/dL (6.6-8.7) 07/04/22 17:55 Albumin 3.6 g/dL (3.5-5.2) 07/04/22 17:55 Globulin 3.6 g/dL (1.3-4.6) 07/04/22 17:55 Urine Color Straw (Yellow) 07/04/22 17:25 Urine Appearance Clear (CLEAR) 07/04/22 17:25 Urine pH 5 (5-7) 07/04/22 17:25 Ur Specific [place] 1.020 (1.005-1.030) 07/04/22 17:25 Urine Protein Neg (Negative) 07/04/22 17:25 Urine Glucose (UA) Norm (Normal) 07/04/22 17:25 Urine Ketones Negative (Negative) 07/04/22 17:25 Urine Blood 2+ (Negative) H 07/04/22 17:25 Urine Nitrate Negative (Negative) 07/04/22 17:25 Urine Bilirubin Neg (Negative) 07/04/22 17:25 Urine Urobilinogen Norm mg/dL (Negative) 07/04/22 17:25 Ur Leukocyte Esterase Negative (Negative) 07/04/22 17:25 Urine RBC Not Reportable 07/04/22 17:25 Urine WBC Not Reportable 07/04/22 17:25 Ur Squamous Epith Cells Not Reportable 07/04/22 17:25 Amorphous Sediment Not Reportable 07/04/22 17:25 Urine Bacteria Not Reportable 07/04/22 17:25 Discharge Plan Discharge Patient Disposition: Home Clinical Impression: Diarrhea Qualifiers: Diarrhea type: unspecified type Qualified Code(s): R19.7 - Diarrhea, unspecified Condition: Stable Prescriptions: New Lomotil 2.5-0.025 mg tablet 1 tab PO Q8H PRN (Reason: diarrhea) Qty: 10 0RF No Action montelukast [Singulair] 10 mg tablet 10 mg PO DAILY Qty: 90 1RF docusate sodium 100 mg capsule 100 mg PO PRN levothyroxine 100 mcg capsule 112 mcg PO DAILY cefuroxime axetil 500 mg tablet 500 mg PO BID Qty: 60 2RF citalopram [Celexa] 20 mg tablet 20 mg PO DAILY Qty: 30 1RF buspirone 15 mg tablet 15 mg PO TID Qty: 90 1RF fluconazole 150 mg tablet 150 mg PO Q3D Qty: 2 0RF pantoprazole [Protonix] 40 mg tablet,delayed release (DR/EC) 40 mg PO DAILY Qty: 30 0RF liothyronine 5 mcg tablet 5 mcg PO DAILY acetaminophen [Tylenol Extra Strength] 500 mg Tablet 1,000 mg PO PRN hydroxyzine pamoate 50 mg capsule 50 mg PO TID PRN (Reason: anxiety) Qty: 14 0RF triamcinolone acetonide 0.1 % ointment 1 applic topical BID PRN (Reason: Rash) Rx Instructions: Apply to affected area no more than 2 weeks per month. Not for face meclizine 25 mg tablet 25 mg PO TID PRN (Reason: dizziness) Qty: 14 0RF ondansetron 4 mg tablet,disintegrating 4 mg PO Q6H PRN (Reason: nausea and vomiting) Qty: 14 0RF Miralax 17 gram/dose powder 17 g PO DAILY PRN (Reason: constipation) Qty: 119 0RF Discharge Orders: Discharge ED (Routine); Ordered 07/04/22 Ordered By: Ahs Burton Referrals: Savannah German FNP [Primary Care Provider] - Discharge Diet: Usual diet Discharge Activity: Increase activity as tolerated Patient Instructions: Chronic Diarrhea (ED) Activity Restrictions/Additional Instructions: Use medications as directed. Follow-up with primary care for further instruction. Follow-up with Dr. Hernadez's office regarding urine culture. Return to ER for new concerns. Coding Level of Care Code ED Life Sciences Teacher for Chg Fwd Exam Comprehensive
[2022-07-04] MEDS: diphenoxylate/atropine Tablet 2 TAB PO (17:31)
[2022-07-04 17:33] LABS: Charge for UA Resulting for Rev
[2022-07-04 17:47] LABS: Add Urine Microscopic? YES; Bilirubin Urine Neg (Negative); Blood Urine 2+ (Negative); Glucose Urine UA Norm (Normal); Ketones Urine Negative (Negative); Leukocyte Esterase Urine Negative (Negative); Nitrate Urine Negative (Negative); Protein Urine Neg (Negative); Urine Appearance Clear (CLEAR); Urine Color Straw (Yellow); Urobilinogen Urine Norm (Negative); pH Urine 5 (5-7)
[2022-07-04 17:50] LABS: Add Urine Culture? Yes
[2022-07-04 18:27] LABS: Basophils % 0.4 %; Eosinophils # 0.1 10^3/uL (0.0-0.8); Eosinophils % 1.1 %; Hematocrit 42.5 % (37.0-47.0); Hemoglobin 13.7 g/dL (11.5-15.3); Lymphocytes % 28.6 %; Mean Corpuscular HGB Conc 32.2 g/dL (30.0-36.0); Mean Corpuscular Hemoglobin 29.3 pg (28.0-34.0); Monocytes # 0.4 10^3/uL (0.2-0.9); Monocytes % 5.7 %; Neutrophils % 63.9 %; Nucleated Red Blood Cells % 0 %; Platelet Count 232 10^3/cmm (130-400); Red Blood Count 4.67 10^6/uL (4.1-5.3)
[2022-07-04 18:42] LABS: Alanine Aminotransferase 30 U/L (0-33); Albumin Level 3.6 g/dL (3.5-5.2); Alkaline Phosphatase 85 U/L (35-105); Aspartate Amino Transferase 20 U/L (0-32); Blood Urea Nitrogen 14 mg/dL (6-20); Calcium 8.7 mg/dL (8.5-10.5); Carbon Dioxide 26 mmol/L (22-29); Chloride 105 mmol/L (98-107); Globulin 3.6 g/dL (1.3-4.6); Glomerular Filtration Rate 105.8 mL/min (90-130); Glucose 94 mg/dL (65-115); Osmolality Calculated 292 mOsm/kg (285-295); Sodium 141 mmol/L (136-145); Total Bilirubin 0.2 mg/dL (0.15-1.2); Total Protein 7.2 g/dL (6.6-8.7)
== END 2022-07-04 19:12 | disposition home or self-care (01) ==
PROVIDERS: Family Medicine; Emergency Provider Nurse Practitioner Family; PCP Nurse Practitioner Family
DX: R19.7 Diarrhea, unspecified (principal); E11.9 Type 2 diabetes mellitus without complications; I10 Essential (primary) hypertension
CPT/HCPCS: 36415; 80053; 81001; 81003; 85025; 87086; 99283

== ENCOUNTER → 2022-07-16 08:58 | Outpatient (BNVA) | payer MEDICARE, MEDICAID, SELFPAY | PROVIDERS: PCP Nurse Practitioner Family; Visit Provider Specialist | DX: G47.419 Narcolepsy without cataplexy (principal); G43.019 Migraine without aura, intractable, without status migrainosus; F81.9 Developmental disorder of scholastic skills, unspecified | CPT/HCPCS: 99213; 99214 ==

== ENCOUNTER 2022-07-20 21:46 | Emergency (ER) | payer MEDICARE, MEDICAID, SELFPAY ==
[2022-07-20 21:55] VITALS: BP 123/85; PULSE 75; RESP 18; TEMP 36.7; O2SAT 96; BMI 41.1
[2022-07-20 22:45] LABS: HCG Qualitative Urine. Negative (Negative)
[2022-07-20 23:13] LABS: Add Urine Microscopic? YES; Bilirubin Urine Neg (Negative); Blood Urine 3+ (Negative); Glucose Urine UA Norm (Normal); Ketones Urine Negative (Negative); Leukocyte Esterase Urine 2+ (Negative); Nitrate Urine Negative (Negative); Protein Urine 1+ (Negative); Urine Appearance Hazy (CLEAR); Urine Color Yellow (Yellow); Urobilinogen Urine Neg (Negative); pH Urine 5 (5-7)
[2022-07-20 23:15] LABS: Add Urine Culture? No; Bacteria Urine 2+ /hpf; Mucus Urine TRACE /hpf; Squamous Epithelial Cell Urine 25-40 /hpf (0-5)
[2022-07-20 23:42] VITALS: PULSE 83; RESP 17; O2SAT 95
[2022-07-21] MEDS: doxycycline 100 mg Tablet PO (00:05)
--- NOTE | 2022-07-21 03:57 | W.ED.FEMALGU ---
HPI - Female Genitourinary General: Chief complaint: Vaginal Bleeding Stated complaint: vag bleeding Time Seen by Provider: 07/20/22 22:26 Source: patient History of Present Illness: 52-year-old female well-known to the ER. She presents with vaginal bleeding . She relates this as 2 episodes of drops of blood on tissue paper when wiping after urinating. She does have a history of chronic cystitis. She has been on antibiotics for several days following recurrent UTIs. She denies any fever. There is no passage of tissue or clots. The patient has had a hysterectomy in the past. MD elicited complaint: vaginal bleeding Pertinent past history: other Location of symptoms: vaginal Severity: mild Female Urogenital Radiation: Non-Radiating Urinary symptoms: Dysuria Exacerbating factors: none Relieving factors: none Associated symptoms: Deny abdominal pain or nausea Review of Systems Const: Denies: fever(s) Card: Denies: chest pain or palpitations Resp: Denies: dyspnea GI: Reports: diarrhea; Denies: abdominal pain, nausea or vomiting PFSH ED PFSH: Medical History Acute serous otitis media of left ear Anxiety Borderline intellectual functioning Controlled type 2 diabetes mellitus, without long-term current use of insulin Depression Dizziness Dumping syndrome Dyslipidemia Enrolled in chronic care management Generalized anxiety disorder GERD (gastroesophageal reflux disease) Grief reaction Hypertension Hypothyroidism Nausea & vomiting Nausea & vomiting Obesity BHARAT (obstructive sleep apnea) Psychiatric care Recurrent UTI Seizure disorder Tinnitus Urinary tract infection with hematuria Surgical History History of colonoscopy with polypectomy (~09/2018) History of esophagogastroduodenoscopy (EGD) (~09/2018) History of gastric bypass - History of hysterectomy with oophorectomy History of laparoscopic cholecystectomy History of placement of ear tubes Family History Grandmother Cancer Father , at age 62 Lung disease Diabetes COPD (chronic obstructive pulmonary disease) Mother Rheumatic arteritis Depression Denies family history of Anesthesia complication Bleeding disorder Social History Smoking and tobacco status: never smoked Quit status (tobacco): has quit using tobacco Second hand smoke exposure: No Smoking risk assessment/counseling performed?: No Alcohol intake: never Desire information about alcohol rehabilitation?: No Counseling given: No Desire information about substance/drug rehabilitation?: No Counseling given: No Adopted: No Caregiver/support person: Yes Lives independently: Yes Housing: House Marital status: Single Highest education level completed: High School Graduate service: No Current occupational status: disabled Current occupational exposures/hazards: No Pets and animals: Yes History of recent travel: No Sexually active: Yes Ania/Jewish: None Special ania needs: No Agree to transfusion: Yes Financial difficulty paying for basics: Not Very Hard Physical Exam Const: COMMON NORMALS: no acute distress GENERAL APPEARANCE: cooperative HENMT: COMMON NORMALS: normocephalic and atraumatic HEAD & SCALP: normocephalic and atraumatic Eye: COMMON NORMALS: Equal, round and reactive pupils present and EOMs intact bilaterally PUPIL: Yes Equal, round and reactive pupils present Neck/C-Spine: GENERAL: Yes trachea midline Chest: CHEST: Yes Symmetrical chest wall rise Resp: COMMON NORMALS: normal respiratory effort, No use of accessory muscles and clear to auscultation bilaterally AUSCULTATION: clear to auscultation bilaterally Cardio: COMMON NORMALS: regular rate and regular rhythm RATE: regular rate RHYTHM: regular rhythm GI: COMMON NORMALS: Normal to inspection, nondistended, normoactive bowel sounds present, Soft to palpation and non-tender PALPATION: Yes Soft to palpation : COMMON NORMALS: Yes no CVA tenderness BLADDER/KIDNEY EXAM: Yes no CVA tenderness Back/Pelvis: COMMON NORMALS: no CVA tenderness Course Vital Signs: Vital signs: Vital Signs Temperature 98.0 F 07/20/22 21:55 Pulse Rate 83 07/20/22 23:42 Respiratory Rate 17 07/20/22 23:42 Blood Pressure 123/85 07/20/22 21:55 Pulse Oximetry 95 07/20/22 23:42 Oxygen Delivery Me thod 07/20/22 23:42 MDM - Female Medical Decision Making This patient has had small streaks of bright red blood on her toilet paper following wiping while urinating. She has a history of a hysterectomy. Emergently, this does not warrant pelvic exam. Pelvic ultrasound is also not needed. Urinalysis shows 3+ blood with 2+ leukocyte esterase, 10-15 reds and 10-15 whites. It is contaminated with 25-40 squamous cells. She may have a hemorrhagic urinary tract infection. The last 2 cultures she is growing Klebsiella and E. coli that were sensitive to multiple antibiotics. She has been on cefuroxime. She will be placed on doxycycline as well for the next 10 days. She knows to follow-up with her primary care physician if the small amounts of blood do not resolve, has pelvic exam may be warranted at that point. Urine is also sent for gonorrhea and chlamydia. Lab Data Laboratory Results HCG, Qual Negative (Negative) 07/20/22 22:37 Urine Color Yellow (Yellow) 07/20/22 22:37 Urine Appearance Hazy (CLEAR) A 07/20/22 22:37 Urine pH 5 (5-7) 07/20/22 22:37 Ur Specific [place] 1.020 (1.005-1.030) 07/20/22 22:37 Urine Protein 1+ (Negative) H 07/20/22 22:37 Urine Glucose (UA) Norm (Normal) 07/20/22 22:37 Urine Ketones Negative (Negative) 07/20/22 22:37 Urine Blood 3+ (Negative) H 07/20/22 22:37 Urine Nitrate Negative (Negative) 07/20/22 22:37 Urine Bilirubin Neg (Negative) 07/20/22 22:37 Urine Urobilinogen Neg mg/dL (Negative) 07/20/22 22:37 Ur Leukocyte Esterase 2+ (Negative) H 07/20/22 22:37 Urine RBC 10-15 /hpf (0-2) H 07/20/22 22:37 Urine WBC 10-15 /hpf (0-5) H 07/20/22 22:37 Ur Squamous Epith Cells 25-40 /hpf (0-5) H 07/20/22 22:37 Amorphous Sediment Not Reportable 07/20/22 22:37 Urine Bacteria 2+ /hpf (NONE) H 07/20/22 22:37 Urine Mucus Trace /hpf 07/20/22 22:37 Discharge Plan Discharge Patient Disposition: Home Clinical Impression: Recurrent UTI Condition: Stable Prescriptions: New doxycycline hyclate 100 mg tablet 100 mg PO BID 10 Days Qty: 20 0RF No Action montelukast [Singulair] 10 mg tablet 10 mg PO DAILY Qty: 90 1RF docusate sodium 100 mg capsule 100 mg PO PRN levothyroxine 100 mcg capsule 112 mcg PO DAILY sumatriptan succinate [Imitrex] 100 mg tablet See Rx Instructions PO .COMPLEX Qty: 90 0RF Rx Instructions: take 1 tab at onset of headache; if no relief, may repeat 1 tab after at least 2 hrs; max = 2 tabs/24 hrs PO cefuroxime axetil 500 mg tablet 500 mg PO BID Qty: 60 2RF citalopram [Celexa] 20 mg tablet 20 mg PO DAILY Qty: 30 1RF buspirone 15 mg tablet 15 mg PO TID Qty: 90 1RF fluconazole 150 mg tablet 150 mg PO Q3D Qty: 2 0RF pantoprazole [Protonix] 40 mg tablet,delayed release (DR/EC) 40 mg PO DAILY Qty: 30 0RF liothyronine 5 mcg tablet 5 mcg PO DAILY acetaminophen [Tylenol Extra Strength] 500 mg Tablet 1,000 mg PO PRN hydroxyzine pamoate 50 mg capsule 50 mg PO TID PRN (Reason: anxiety) Qty: 14 0RF triamcinolone acetonide 0.1 % ointment 1 applic topical BID PRN (Reason: Rash) Rx Instructions: Apply to affected area no more than 2 weeks per month. Not for face Lomotil 2.5-0.025 mg tablet 1 tab PO Q8H PRN (Reason: diarrhea) Qty: 10 0RF meclizine 25 mg tablet 25 mg PO TID PRN (Reason: dizziness) Qty: 14 0RF ondansetron 4 mg tablet,disintegrating 4 mg PO Q6H PRN (Reason: nausea and vomiting) Qty: 14 0RF Miralax 17 gram/dose powder 17 g PO DAILY PRN (Reason: constipation) Qty: 119 0RF Discharge Orders: Discharge ED (Routine); Ordered 07/20/22 Ordered By: Keaton Alexander Referrals: Savannah German FNP [Primary Care Provider] - 1-3 days Patient Instructions: Urinary Tract Infection in Women (ED) Activity Restrictions/Additional Instructions: You have blood in your urine, indicative of a hemorrhagic urinary tract infection, which is the most likely source of your bleeding. Stay on your antibiotic you were prescribed, and add the one above. If you are still experiencing any bleeding after 3-4 doses of antibiotics, you may need to have a pelvic exam at your primary care physician's office. Currently, there is no emergent need for this. Return for fever greater than 100, vomiting liquids or medications. Coding Level of Care Code ED A And P Mechanic for Robyn Ruiz
== END 2022-07-21 00:08 | disposition home or self-care (01) ==
PROVIDERS: Emergency Provider Emergency Medicine; PCP Nurse Practitioner Family
DX: N39.0 Urinary tract infection, site not specified (principal)
CPT/HCPCS: 81001; 81025; 87491; 87591; 99283

== ENCOUNTER → 2022-08-30 08:13 | Outpatient (BNVA) | payer MEDICARE, MEDICAID, SELFPAY | PROVIDERS: PCP Nurse Practitioner Family; Visit Provider Otolaryngology | DX: H60.93 Unspecified otitis externa, bilateral (principal) | CPT/HCPCS: 99213 ==

== ENCOUNTER → 2022-09-03 14:32 | Outpatient (BNVA) | payer MEDICARE, MEDICAID, SELFPAY | PROVIDERS: PCP Nurse Practitioner Family; Visit Provider Nurse Practitioner Family | DX: N30.20 Other chronic cystitis without hematuria (principal) | CPT/HCPCS: 51798; 81003; 99213 ==

== ENCOUNTER 2022-09-16 09:26 | Outpatient (CLI) | payer MEDICARE, MEDICAID, SELFPAY ==
--- NOTE | 2022-09-16 09:39 | MM_ITS ---
WS: [id number] Bilateral screening 3D tomosynthesis digital mammogram, 09/16/2022 Clinical Data: SCREENING Comparison: 08/24/2020 Findings: The breast parenchymal pattern shows fat replacement. No spiculated masses or clustered calcification s are seen. There are no secondary signs of carcinoma. MM/[place] [id number] Impression: 1. Negative bilateral mammogram unchanged. 2. Recommend annual screening mammograms. BIRADS: 1-Negative FOLLOW UP: 1 Year Follow-up The CAD job checker was used.
== END 2022-09-16 09:27 | disposition home or self-care (01) ==
LOC: RAD 09:27
PROVIDERS: PCP Nurse Practitioner Family; Visit Provider Nurse Practitioner Family
DX: Z12.31 Encounter for screening mammogram for malignant neoplasm of breast (principal)
CPT/HCPCS: 77063; 77067

== ENCOUNTER 2022-10-07 20:57 | Emergency (ER) | payer MEDICARE, MEDICAID, SELFPAY ==
--- NOTE | 2022-10-07 21:03 | XRR_ITS ---
PROCEDURE INFORMATION: Exam: XR Left Knee Exam date and time: 10/07/2022 10:13 PM Age: 52 years old Clinical indication: Injury or trauma; Blunt trauma; Left; Injury details: Chronic knee pain with fall, lateral pain TECHNIQUE: Imaging protocol: Radiologic exam of the Left knee. Views: 3 views. COMPARISON: CR XR knee LT 3V* [id number] 12/30/2020 9:39 PM FINDINGS: Bones/joints: [id number] tricompartmental osteoarthritis of the knee. Soft tissues: Normal. XR/XR knee LT 3V* [id number] IMPRESSION: 1. Negative for fracture or dislocation 2. [id number] tricompartmental osteoarthritis of the knee.
[2022-10-07 21:08] VITALS: BP 135/85; PULSE 66; RESP 16; TEMP 36.3; O2SAT 100
--- NOTE | 2022-10-07 21:17 | ED_ITS ---
HPI - Extremity Problem General: Chief complaint: Extremity Injury, Lower Stated complaint: Left knee pain Time Seen by Provider: 10/07/22 21:11 History of Present Illness: 52-year-old female comes in today for complaints of left knee pain. Patient reports that her knee has been bothering her and today she was getting into the shower and accidentally fell due to her knee felt like it gave out on her. Patient has been using her cane for ambulation over the past couple of weeks. Patient is waiting to get into see Dr. Navas for a steroid injection into the knee. Patient appears nontoxic. No obvious deformity is noted to the knee. No redness or swelling is significant to the knee. Associated symptoms: Deny fever(s) Review of Systems General: Reports: 10 or more systems reviewed and unremarkable except in HPI and below Const: Denies: fever(s) Musc: Reports: joint pain (Left knee) [facility] PFS: Medical History (Updated 10/07/22 @ 21:38 by PIPPA Arango) Acute serous otitis media of left ear Anxiety Borderline intellectual functioning Controlled type 2 diabetes mellitus, without long-term current use of insulin Depression Dizziness Dumping syndrome Dyslipidemia Enrolled in chronic care management Generalized anxiety disorder GERD (gastroesophageal reflux disease) Grief reaction Hypertension Hypothyroidism Major depressive disorder, recurrent, moderate Nausea & vomiting Nausea & vomiting Obesity BHARAT (obstructive sleep apnea) Psychiatric care Recurrent UTI Seizure disorder Tinnitus Urinary tract infection with hematuria Surgical History History of colonoscopy with polypectomy (~09/2018) History of esophagogastroduodenoscopy (EGD) (~09/2018) History of gastric bypass History of hysterectomy with oophorectomy History of laparoscopic cholecystectomy History of placement of ear tubes Family History Grandmother Cancer Father , at age 62 Lung disease Diabetes COPD (chronic obstructive pulmonary disease) Mother Rheumatic arteritis Depression Denies family history of Anesthesia complication Bleeding disorder Social History Smoking and tobacco status: never smoked Second hand smoke exposure: No Smoking risk assessment/counseling performed?: No Alcohol intake: never Desire information about alcohol rehabilitation?: No Counseling given: No Desire information about substance/drug rehabilitation?: No Counseling given: No Adopted: No Caregiver/support person: Yes Lives independently: Yes Housing: House Marital status: Single Highest education level completed: High School Graduate service: No Current occupational status: disabled Current occupational exposures/hazards: No Pets and animals: Yes History of recent travel: No Sexually active: Yes Ania/Christian: None Special ania needs: No Agree to transfusion: Yes Financial difficulty paying for basics: Not Very Hard Physical Exam Const: COMMON NORMALS: alert HENMT: COMMON NORMALS: normocephalic HEAD & SCALP: normocephalic Neck/C-Spine: COMMON NORMALS: full ROM Resp: COMMON NORMALS: normal respiratory effort and clear to auscultation bilaterally AUSCULTATION: clear to auscultation bilaterally Cardio: COMMON NORMALS: regular rate and regular rhythm RATE: regular rate RHYTHM: regular rhythm Extremity: LEFT LOWER EXTREMITY: Yes knee joint (Minimal to no swelling, no induration.) Left knee: Yes inspection, Yes palpation and Yes ROM Neuro: SENSORIUM/ORIENTATION: Yes alert Skin: COMMON NORMALS: no rashes or lesions noted GENERAL SKIN EXAM: no rashes or lesions noted Course Vital Signs: Vital signs: Vital Signs Temperature 97.4 F L 10/07/22 21:08 Pulse Rate 66 10/07/22 21:08 Respiratory Rate 16 10/07/22 21:08 Blood Pressure 135/85 10/07/22 21:08 Pulse Oximetry 100 10/07/22 21:08 Oxygen Delivery Me thod 10/07/22 21:08 MDM - Extremity (Nontraumatic) Medical Decision Making Patient comes in today for increased knee pain. On exam patient has no obvious swelling or induration to the knee. Respirations are even lungs are clear to auscultation. Vital signs are normal. Differential diagnosis includes but not limited to osteoarthritis, meniscal injury, tendinitis. X-ray was noted degenerative changes. Reviewed exam with patient with recommendations for treatment and follow-up. Patient was given 30 mg of Toradol for pain and inflammation. Patient was also given hydrocodone 7-1/2 mg 1 tablet for pain today. Recommend follow-up with primary care or document preparation specialist tomorrow. Lab Data Radiology Impressions Knee X-Ray 10/07/22 21:03 IMPRESSION: 1. Negative for fracture or dislocation 2. [id number] tricompartmental osteoarthritis of the knee. Discharge Plan Discharge Patient Disposition: Home Clinical Impression: Knee osteoarthritis Qualifiers: Osteoarthritis type: unspecified Laterality: left Qualified Code(s): M17.12 - Unilateral primary osteoarthritis, left knee Condition: Stable Prescriptions: No Action montelukast [Singulair] 10 mg tablet 10 mg PO DAILY Qty: 90 1RF docusate sodium 100 mg capsule 100 mg PO PRN levothyroxine 100 mcg capsule 112 mcg PO DAILY sumatriptan succinate [Imitrex] 100 mg tablet See Rx Instructions PO .COMPLEX Qty: 90 0RF Rx Instructions: take 1 tab at onset of headache; if no relief, may repeat 1 tab after at least 2 hrs; max = 2 tabs/24 hrs PO mupirocin 2 % ointment 1 applic topical BID 7 Days Qty: 22 0RF fluoxetine [Prozac] 20 mg capsule 20 mg PO DAILY Qty: 30 1RF buspirone 15 mg tablet 15 mg PO TID Qty: 90 1RF pantoprazole [Protonix] 40 mg tablet,delayed release (DR/EC) 40 mg PO DAILY Qty: 30 0RF cefuroxime axetil 500 mg tablet 500 mg PO BID Qty: 60 2RF ciprofloxacin-dexamethasone [Ciprodex] 0.3-0.1 % drops,suspension 4 drp otic (ear) BID Qty: 7.5 12RF liothyronine 5 mcg tablet 5 mcg PO DAILY acetaminophen [Tylenol Extra Strength] 500 mg Tablet 1,000 mg PO PRN hydroxyzine pamoate 50 mg capsule 50 mg PO TID PRN (Reason: anxiety) Qty: 14 0RF triamcinolone acetonide 0.1 % ointment 1 applic topical BID PRN (Reason: Rash) Rx Instructions: Apply to affected area no more than 2 weeks per month. Not for face Lomotil 2.5-0.025 mg tablet 1 tab PO Q8H PRN (Reason: diarrhea) Qty: 10 0RF meclizine 25 mg tablet 25 mg PO TID PRN (Reason: dizziness) Qty: 14 0RF ondansetron 4 mg tablet,disintegrating 4 mg PO Q6H PRN (Reason: nausea and vomiting) Qty: 14 0RF Miralax 17 gram/dose powder 17 g PO DAILY PRN (Reason: constipation) Qty: 119 0RF Discharge Orders: Discharge ED (Routine); Ordered 10/07/22 Ordered By: Ash Burton Discharge Diet: Usual diet Discharge Activity: Increase activity as tolerated Patient Instructions: Osteoarthritis (ED) Activity Restrictions/Additional Instructions: Activity as tolerated. Continue with diclofenac rub to the knee as directed by insert. Use acetaminophen for further pain relief. Follow-up with primary care or document preparation specialist for further treatment. Return to ED for new concerns. Coding Level of Care Code ED Machine Grainer for Robyn Ruiz
[2022-10-07] MEDS: ketorolac 30 mg/mL INJ IM (21:42)
[2022-10-07] MEDS: HYDROcodone-acetaminophen 7.5-325 mg Tablet 1 TAB PO (21:43)
== END 2022-10-07 21:49 | disposition home or self-care (01) ==
PROVIDERS: Emergency Provider Nurse Practitioner Family
DX: M17.12 Unilateral primary osteoarthritis, left knee (principal)
CPT/HCPCS: 73562; 96372; 99284; J1885

== ENCOUNTER → 2022-10-09 14:53 | Outpatient (BNVA) | payer MEDICARE, MEDICAID, SELFPAY | PROVIDERS: Visit Provider Orthopaedic Surgery | DX: M17.12 Unilateral primary osteoarthritis, left knee (principal) | CPT/HCPCS: 99212; J3301; J3490 ==

== ENCOUNTER 2022-10-14 19:42 | Emergency (ER) | payer MEDICARE, MEDICAID, SELFPAY ==
[2022-10-14 19:54] VITALS: BP 145/88; PULSE 69; RESP 17; TEMP 37.1; O2SAT 99; BMI 44.6
--- NOTE | 2022-10-14 22:00 | ED_ITS ---
HPI - Headache General: Chief Complaint: Headache Stated Complaint: Vomiting\Headache Time Seen by Provider: 10/14/22 21:50 Source: patient Mode of arrival: ambulatory Limitations: no limitations History of Present Illness: 52-year-old female who is very well-known to the ER that she has been having a headache that gradually got worse today she does have a history of migraine states she has had 4 episodes of vomiting states her headaches actually improving so is her nausea states her headache currently is a 4 out of 10 she denies any abdominal pain denies any fevers denies any worsening improving factors at this time. Denies any neck pain Associated symptoms: Reports nausea and vomiting; Deny chest pain, fever(s) or rash Review of Systems Const: Denies: fever(s), chills, body aches or change in appetite Eyes: Denies: blurry vision or eye discomfort ENMT: Denies: throat pain or dental pain Card: Denies: chest pain Resp: Denies: dyspnea GI: Reports: nausea and vomiting : Denies: dysuria Musc: Denies: neck pain or back pain Skin/Breast: Denies: rash Neuro: Reports: headache(s) Psych: Denies: depression Red/Lymph: Denies: easy bruising All/Imm: Denies: urticaria PFSH ED 2 PFSH: Medical History Acute serous otitis media of left ear Anxiety Borderline intellectual functioning Controlled type 2 diabetes mellitus, without long-term current use of insulin Depression Dizziness Dumping syndrome Dyslipidemia Enrolled in chronic care management Generalized anxiety disorder GERD (gastroesophageal reflux disease) Grief reaction Hypertension Hypothyroidism Major depressive disorder, recurrent, moderate Nausea & vomiting Nausea & vomiting Obesity BHARAT (obstructive sleep apnea) Psychiatric care Recurrent UTI Seizure disorder Tinnitus Urinary tract infection with hematuria Surgical History History of colonoscopy with polypectomy (~09/2018) History of esophagogastroduodenoscopy (EGD) (~09/2018) History of gastric bypass 2020- - [facility] History of hysterectomy with oophorectomy History of laparoscopic cholecystectomy History of placement of ear tubes Family History Grandmother Cancer Father , at age 62 Lung disease Diabetes COPD (chronic obstructive pulmonary disease) Mother Rheumatic arteritis Depression Denies family history of Anesthesia complication Bleeding disorder Social History Smoking and tobacco status: never smoked Second hand smoke exposure: No Smoking risk assessment/counseling performed?: No Alcohol intake: never Desire information about alcohol rehabilitation?: No Counseling given: No Desire information about substance/drug rehabilitation?: No Counseling given: No Adopted: No Caregiver/support person: Yes Lives independently: Yes Housing: House Marital status: Single Highest education level completed: High School Graduate service: No Current occupational status: disabled Current occupational exposures/hazards: No Pets and animals: Yes History of recent travel: No Sexually active: Yes Ania/Bahai: None Special ania needs: No Agree to transfusion: Yes Financial difficulty paying for basics: Not Very Hard Physical Exam Const: COMMON NORMALS: no acute distress, patient oriented x3 and healthy appearing HENMT: COMMON NORMALS: normocephalic and atraumatic HEAD & SCALP: normocephalic and atraumatic Eye: COMMON NORMALS: Equal, round and reactive pupils present and EOMs intact bilaterally PUPIL: Yes Equal, round and reactive pupils present Neck/C-Spine: COMMON NORMALS: full ROM and supple Chest: COMMONS NORMALS: normal inspection of the chest and normal palpation of entire chest wall Resp: COMMON NORMALS: normal respiratory effort, No retractions, No use of accessory muscles and clear to auscultation bilaterally AUSCULTATION: clear to auscultation bilaterally Cardio: COMMON NORMALS: regular rate, regular rhythm and No murmurs present (Cardio) RATE: regular rate RHYTHM: regular rhythm GI: COMMON NORMALS: Normal to inspection, nondistended, normoactive bowel sounds present, Soft to palpation, non-tender and no masses PALPATION: Yes Soft to palpation Extremity: COMMON NORMALS: normal to inspection and full ROM Neuro: COMMON NORMALS: patient oriented x3, moves all extremities and no focal motor deficits Psych: COMMON NORMALS: mental status grossly normal, Normal thought process present and cooperative THOUGHT PROCESS: Normal thought process present Skin: COMMON NORMALS: no rashes or lesions noted and no wounds GENERAL SKIN EXAM: no rashes or lesions noted Course Vital Signs: Vital signs: Vital Signs Temperature 98.7 F 10/14/22 19:54 Pulse Rate 69 10/14/22 19:54 Respiratory Rate 18 10/14/22 22:18 Blood Pressure 145/88 10/14/22 19:54 Pulse Oximetry 99 10/14/22 19:54 Oxygen Delivery Me thod 10/14/22 19:54 MDM - Headache Medical Decision Making Patient presents here with headache that is since resolved she also has vomiting she is able tolerate p.o. here her abdominal exam is benign blood work is normal patient was adamant that she needed a CT of her abdomen try to explain to her that her blood work is normal she does not need a CT of her abdomen at this time she is tolerating p.o. she is not having any abdominal pain she is to follow-up with PCP Lab Data 10/14/22 23:02 10/14/22 23:02 Laboratory Results WBC 9.5 10^3/uL (4.0-10.0) 10/14/22 23:02 RBC 5.15 10^6/uL (4.1-5.3) 10/14/22 23:02 Hgb 15.4 g/dL (11.5-15.3) H 10/14/22 23:02 Hct 46.7 % (37.0-47.0) 10/14/22 23:02 MCV 90.7 fl (81-99) 10/14/22 23:02 MCH 29.9 pg (28.0-34.0) 10/14/22 23:02 MCHC 33.0 g/dL (30.0-36.0) 10/14/22 23:02 RDW 12.1 % (12.1-15.1) 10/14/22 23:02 Plt Count 263 10^3/cmm (130-400) 10/14/22 23:02 MPV 9.0 fL (7.4-10.4) 10/14/22 23:02 Neut % (Auto) 63.6 % 10/14/22 23:02 Lymph % (Auto) 28.0 % 10/14/22 23:02 Jefferson % (Auto) 6.4 % 10/14/22 23:02 Eos % (Auto) 1.2 % 10/14/22 23:02 Baso % (Auto) 0.4 % 10/14/22 23:02 Neut # (Auto) 6.05 10^3/uL (1.8-7.7) 10/14/22 23:02 Lymph # (Auto) 2.7 10^3/uL (0.8-4.8) 10/14/22 23:02 Jefferson # (Auto) 0.6 10^3/uL (0.2-0.9) 10/14/22 23:02 Eos # (Auto) 0.1 10^3/uL (0.0-0.8) 10/14/22 23:02 Baso # (Auto) 0.0 10^3/uL (0.0-0.1) 10/14/22 23:02 Nucleated RBC % (auto) 0 % 10/14/22 23:02 Nucleated RBCs # 0.0 /100WBC 10/14/22 23:02 Sodium 136 mmol/L (136-145) 10/14/22 23:02 Potassium 4.2 mmol/L (3.5-5.1) 10/14/22 23:02 Chloride 103 mmol/L (98-107) 10/14/22 23:02 Carbon Dioxide 24 mmol/L (22-29) 10/14/22 23:02 Anion Gap 13.2 (5-19) 10/14/22 23:02 BUN 20 mg/dL (6-20) 10/14/22 23:02 Creatinine 0.7 mg/dL (0.5-0.9) 10/14/22 23:02 GFR Calculation 88.6 mL/min (90-130) L 10/14/22 23:02 Glucose 109 mg/dL (65-115) 10/14/22 23:02 Calculated Osmolality 285 mOsm/kg (285-295) 10/14/22 23:02 Calcium 9.5 mg/dL (8.5-10.5) 10/14/22 23:02 Total Bilirubin 0.3 mg/dL (0.15-1.2) 10/14/22 23:02 AST 21 U/L (0-32) 10/14/22 23:02 ALT 30 U/L (0-33) 10/14/22 23:02 Alkaline Phosphatase 112 U/L (35-105) H 10/14/22 23:02 Total Protein 7.7 g/dL (6.6-8.7) 10/14/22 23:02 Albumin 3.9 g/dL (3.5-5.2) 10/14/22 23:02 Globulin 3.8 g/dL (1.3-4.6) 10/14/22 23:02 Lipase 85 U/L (13-60) H 10/14/22 23:02 Discharge Plan Discharge Patient Disposition: Home Clinical Impression: Headache, Vomiting Condition: Stable Prescriptions: New ondansetron 4 mg tablet,disintegrating 4 mg PO Q6H PRN (Reason: nausea and vomiting) Qty: 14 0RF No Action montelukast [Singulair] 10 mg tablet 10 mg PO DAILY Qty: 90 1RF docusate sodium 100 mg capsule 100 mg PO PRN levothyroxine 100 mcg capsule 112 mcg PO DAILY sumatriptan succinate [Imitrex] 100 mg tablet See Rx Instructions PO .COMPLEX Qty: 90 0RF Rx Instructions: take 1 tab at onset of headache; if no relief, may repeat 1 tab after at least 2 hrs; max = 2 tabs/24 hrs PO mupirocin 2 % ointment 1 applic topical BID 7 Days Qty: 22 0RF fluoxetine [Prozac] 20 mg capsule 20 mg PO DAILY Qty: 30 1RF buspirone 15 mg tablet 15 mg PO TID Qty: 90 1RF pantoprazole [Protonix] 40 mg tablet,delayed release (DR/EC) 40 mg PO DAILY Qty: 30 0RF cefuroxime axetil 500 mg tablet 500 mg PO BID Qty: 60 2RF ciprofloxacin-dexamethasone [Ciprodex] 0.3-0.1 % drops,suspension 4 drp otic (ear) BID Qty: 7.5 12RF liothyronine 5 mcg tablet 5 mcg PO DAILY acetaminophen [Tylenol Extra Strength] 500 mg Tablet 1,000 mg PO PRN hydroxyzine pamoate 50 mg capsule 50 mg PO TID PRN (Reason: anxiety) Qty: 14 0RF triamcinolone acetonide 0.1 % ointment 1 applic topical BID PRN (Reason: Rash) Rx Instructions: Apply to affected area no more than 2 weeks per month. Not for face Lomotil 2.5-0.025 mg tablet 1 tab PO Q8H PRN (Reason: diarrhea) Qty: 10 0RF meclizine 25 mg tablet 25 mg PO TID PRN (Reason: dizziness) Qty: 14 0RF ondansetron 4 mg tablet,disintegrating 4 mg PO Q6H PRN (Reason: nausea and vomiting) Qty: 14 0RF Miralax 17 gram/dose powder 17 g PO DAILY PRN (Reason: constipation) Qty: 119 0RF Discharge Orders: Discharge ED (Routine); Ordered 10/14/22 Ordered By: Patricia Arroyo Discharge Diet: Advance as tolerated Discharge Activity: Resume usual activity Patient Instructions: Acute Nausea and Vomiting (ED), General Headache (ED) Coding Level of Care Code ED Wedding Makeup Artist for Chg Fwd Exam Comprehensive
[2022-10-14 22:18] VITALS: RESP 18
[2022-10-14] MEDS: morphine 4 mg/mL SDV 1 mL IM (22:18)
[2022-10-14] MEDS: metoclopramide 5 mg/mL SDV 2 mL 10 MG IM (22:18)
[2022-10-14] MEDS: ondansetron 4 MG Tablet PO (22:50)
[2022-10-14 23:08] LABS: Basophils % 0.4 %; Eosinophils # 0.1 10^3/uL (0.0-0.8); Eosinophils % 1.2 %; Hematocrit 46.7 % (37.0-47.0); Hemoglobin 15.4 g/dL (11.5-15.3); Lymphocytes # 2.7 10^3/uL (0.8-4.8); Mean Corpuscular Hemoglobin 29.9 pg (28.0-34.0); Mean Corpuscular Volume 90.7 fl (81-99); Monocytes # 0.6 10^3/uL (0.2-0.9); Monocytes % 6.4 %; Neutrophils # 6.05 10^3/uL (1.8-7.7); Neutrophils % 63.6 %; Nucleated Red Blood Cells % 0 %; Platelet Count 263 10^3/cmm (130-400); Red Blood Count 5.15 10^6/uL (4.1-5.3); Red Cell Distribution Width 12.1 % (12.1-15.1); White Blood Count 9.5 10^3/uL (4.0-10.0)
[2022-10-14 23:23] LABS: Alanine Aminotransferase 30 U/L (0-33); Albumin Level 3.9 g/dL (3.5-5.2); Alkaline Phosphatase 112 U/L (35-105); Anion Gap 13.2 (5-19); Aspartate Amino Transferase 21 U/L (0-32); Blood Urea Nitrogen 20 mg/dL (6-20); Calcium 9.5 mg/dL (8.5-10.5); Carbon Dioxide 24 mmol/L (22-29); Chloride 103 mmol/L (98-107); Globulin 3.8 g/dL (1.3-4.6); Glomerular Filtration Rate 88.6 mL/min (90-130); Glucose 109 mg/dL (65-115); Lipase 85 U/L (13-60); Osmolality Calculated 285 mOsm/kg (285-295); Potassium 4.2 mmol/L (3.5-5.1); Sodium 136 mmol/L (136-145); Total Bilirubin 0.3 mg/dL (0.15-1.2); Total Protein 7.7 g/dL (6.6-8.7)
[2022-10-14 23:54] VITALS: BP 122/45; PULSE 59; RESP 17; O2SAT 99
== END 2022-10-14 23:39 | disposition home or self-care (01) ==
PROVIDERS: Emergency Provider Emergency Medicine
DX: R51.9 Headache, unspecified (principal); R11.11 Vomiting without nausea; E11.9 Type 2 diabetes mellitus without complications; E78.5 Hyperlipidemia, unspecified; I10 Essential (primary) hypertension
CPT/HCPCS: 80053; 83690; 85025; 96372; 99284; J2270; J2765; Q0162

== ENCOUNTER 2022-10-27 08:24 | Emergency (ER) | payer MEDICARE, MEDICAID, SELFPAY ==
--- NOTE | 2022-10-27 08:50 | ED_ITS ---
HPI - Ear Problem General: Stated complaint: ear bleeding Time Seen by Provider: 10/27/22 08:27 Source: patient Mode of arrival: ambulatory Limitations: no limitations History of Present Illness: 52-year-old female states she has had ear pain over the last 2 days she has noticed some bleeding from her left ear this morning states pain sharp in nature rates it a 4 out of 10 denies any fevers denies any headache. Associated symptoms: Reports ear or mastoid pain; Denies fever(s), headache(s) or neck pain Review of Systems 2 Const: Denies: fever(s), chills, body aches or change in appetite Eyes: Denies: blurry vision or eye discomfort ENMT: Reports: ear or mastoid pain Card: Denies: chest pain Resp: Denies: dyspnea GI: Denies: abdominal pain, nausea, vomiting or diarrhea : Denies: dysuria Musc: Denies: neck pain or back pain Skin/Breast: Denies: rash Neuro: Denies: headache(s) Psych: Denies: depression Red/Lymph: Denies: easy bruising All/Imm: Denies: urticaria PFSH ED PFSH: Medical History Acute serous otitis media of left ear Anxiety Borderline intellectual functioning Controlled type 2 diabetes mellitus, without long-term current use of insulin Depression Dizziness Dumping syndrome Dyslipidemia Enrolled in chronic care management Generalized anxiety disorder GERD (gastroesophageal reflux disease) Grief reaction Hypertension Hypothyroidism Major depressive disorder, recurrent, moderate Nausea & vomiting Nausea & vomiting Obesity BHARAT (obstructive sleep apnea) Psychiatric care Recurrent UTI Seizure disorder Tinnitus Urinary tract infection with hematuria Surgical History History of colonoscopy with polypectomy (~09/2018) History of esophagogastroduodenoscopy (EGD) (~09/2018) History of gastric bypass 2020- - History of hysterectomy with oophorectomy History of laparoscopic cholecystectomy History of placement of ear tubes Family History Grandmother Cancer Father , at age 62 Lung disease Diabetes COPD (chronic obstructive pulmonary disease) Mother Rheumatic arteritis Depression Denies family history of Anesthesia complication Bleeding disorder Social History Smoking and tobacco status: never smoked Second hand smoke exposure: No Smoking risk assessment/counseling performed?: No Alcohol intake: never Desire information about alcohol rehabilitation?: No Counseling given: No Desire information about substance/drug rehabilitation?: No Counseling given: No Adopted: No Caregiver/support person: Yes Lives independently: Yes Housing: House Marital status: Single Highest education level completed: High School Graduate service: No Current occupational status: disabled Current occupational exposures/hazards: No Pets and animals: Yes History of recent travel: No Sexually active: Yes Ania/Islam: None Special ania needs: No Agree to transfusion: Yes Financial difficulty paying for basics: Not Very Hard Physical Exam Const: COMMON NORMALS: patient oriented x3 EXAM LIMITATIONS: altered mental status HENMT: COMMON NORMALS: normocephalic HEAD & SCALP: normocephalic OTHER: Erythema to left tympanic membrane with a very small perforation Eye: COMMON NORMALS: conjunctivae normal CONJUNCTIVA: Yes conjunctivae normal Neck/C-Spine: COMMON NORMALS: supple Chest: COMMONS NORMALS: normal inspection of the chest Resp: COMMON NORMALS: normal respiratory effort Cardio: COMMON NORMALS: regular rate RATE: regular rate GI: INSPECTION: Yes normal to inspection Extremity: COMMON NORMALS: normal to inspection Neuro: COMMON NORMALS: patient oriented x3 Psych: COMMON NORMALS: mental status grossly normal Skin: COMMON NORMALS: no rashes or lesions noted GENERAL SKIN EXAM: no rashes or lesions noted MDM - Ear Medical Decision Making Patient presents here with otitis media to the left ear with appears to be a small perforation will start on Keflex she has follow-up with ENT tomorrow no signs of mastoiditis Discharge Plan Discharge Patient Disposition: Home Clinical Impression: Otitis media Qualifiers: Otitis media type: unspecified Laterality: left Qualified Code(s): H66.92 - Otitis media, unspecified, left ear Condition: Stable Prescriptions: New cephalexin 500 mg capsule 500 mg PO TID 7 Days Qty: 21 0RF No Action montelukast [Singulair] 10 mg tablet 10 mg PO DAILY Qty: 90 1RF docusate sodium 100 mg capsule 100 mg PO PRN levothyroxine 100 mcg capsule 112 mcg PO DAILY sumatriptan succinate [Imitrex] 100 mg tablet See Rx Instructions PO .COMPLEX Qty: 90 0RF Rx Instructions: take 1 tab at onset of headache; if no relief, may repeat 1 tab after at least 2 hrs; max = 2 tabs/24 hrs PO mupirocin 2 % ointment 1 applic topical BID 7 Days Qty: 22 0RF fluoxetine [Prozac] 20 mg capsule 20 mg PO DAILY Qty: 30 1RF buspirone 15 mg tablet 15 mg PO TID Qty: 90 1RF pantoprazole [Protonix] 40 mg tablet,delayed release (DR/EC) 40 mg PO DAILY Qty: 30 0RF cefuroxime axetil 500 mg tablet 500 mg PO BID Qty: 60 2RF ciprofloxacin-dexamethasone [Ciprodex] 0.3-0.1 % drops,suspension 4 drp otic (ear) BID Qty: 7.5 12RF liothyronine 5 mcg tablet 5 mcg PO DAILY acetaminophen [Tylenol Extra Strength] 500 mg Tablet 1,000 mg PO PRN hydroxyzine pamoate 50 mg capsule 50 mg PO TID PRN (Reason: anxiety) Qty: 14 0RF triamcinolone acetonide 0.1 % ointment 1 applic topical BID PRN (Reason: Rash) Rx Instructions: Apply to affected area no more than 2 weeks per month. Not for face Lomotil 2.5-0.025 mg tablet 1 tab PO Q8H PRN (Reason: diarrhea) Qty: 10 0RF ondansetron 4 mg tablet,disintegrating 4 mg PO Q6H PRN (Reason: nausea and vomiting) Qty: 14 0RF meclizine 25 mg tablet 25 mg PO TID PRN (Reason: dizziness) Qty: 14 0RF ondansetron 4 mg tablet,disintegrating 4 mg PO Q6H PRN (Reason: nausea and vomiting) Qty: 14 0RF Miralax 17 gram/dose powder 17 g PO DAILY PRN (Reason: constipation) Qty: 119 0RF Discharge Orders: Discharge ED (Routine); Ordered 10/27/22 Ordered By: Patricia Arroyo Discharge Diet: Advance as tolerated Discharge Activity: Resume usual activity Patient Instructions: Ear Infection (ED) Coding Level of Care Code ED Glue Mixer for Robyn Ruiz
[2022-10-27 08:55] VITALS: BP 161/96; PULSE 65; RESP 16; TEMP 36.4; O2SAT 96
== END 2022-10-27 09:02 | disposition home or self-care (01) ==
PROVIDERS: Emergency Provider Emergency Medicine
DX: H66.92 Otitis media, unspecified, left ear (principal); E11.9 Type 2 diabetes mellitus without complications; E78.5 Hyperlipidemia, unspecified; I10 Essential (primary) hypertension
CPT/HCPCS: 99283

== ENCOUNTER → 2022-10-28 15:27 | Outpatient (BNVA) | payer MEDICARE, MEDICAID, SELFPAY | PROVIDERS: Visit Provider Otolaryngology | DX: H66.003 Acute suppurative otitis media without spontaneous rupture of ear drum, bilateral (principal) | CPT/HCPCS: 99213 ==

== ENCOUNTER 2022-11-14 21:25 | Emergency (ER) | payer MEDICARE, MEDICAID, SELFPAY ==
[2022-11-14 21:43] VITALS: BP 163/92; PULSE 60; RESP 16; O2SAT 97
--- NOTE | 2022-11-14 21:44 | ED_ITS ---
HPI - Abdominal Pain General: Chief Complaint: Abdominal Pain Stated Complaint: abd pain black poop Time Seen by Provider: 11/14/22 21:28 [facility] ED PFSH: Medical History Acute serous otitis media of left ear Anxiety Borderline intellectual functioning Controlled type 2 diabetes mellitus, without long-term current use of insulin Depression Dizziness Dumping syndrome Dyslipidemia Enrolled in chronic care management Generalized anxiety disorder GERD (gastroesophageal reflux disease) Grief reaction Hypertension Hypothyroidism Major depressive disorder, recurrent, moderate Nausea & vomiting Nausea & vomiting Obesity BHARAT (obstructive sleep apnea) Psychiatric care Recurrent UTI Seizure disorder Tinnitus Urinary tract infection with hematuria Surgical History History of colonoscopy with polypectomy (~09/2018) History of esophagogastroduodenoscopy (EGD) (~09/2018) History of gastric bypass 2020- - History of hysterectomy with oophorectomy History of laparoscopic cholecystectomy History of placement of ear tubes Family History Grandmother Cancer Father , at age 62 Lung disease Diabetes COPD (chronic obstructive pulmonary disease) Mother Rheumatic arteritis Depression Denies family history of Anesthesia complication Bleeding disorder Social History Smoking and tobacco status: never smoked Second hand smoke exposure: No Smoking risk assessment/counseling performed?: No Alcohol intake: never Desire information about alcohol rehabilitation?: No Counseling given: No Desire information about substance/drug rehabilitation?: No Counseling given: No Adopted: No Caregiver/support person: Yes Lives independently: Yes Housing: House Marital status: Single Highest education level completed: High School Graduate service: No Current occupational status: disabled Current occupational exposures/hazards: No Pets and animals: Yes History of recent travel: No Sexually active: Yes Ania/Zoroastrianism: None Special ania needs: No Agree to transfusion: Yes Financial difficulty paying for basics: Not Very Hard Course Vital Signs: Vital signs: Vital Signs Temperature 97.7 F 11/14/22 21:51 Pulse Rate 60 11/14/22 21:43 Respiratory Rate 16 11/14/22 21:43 Blood Pressure 163/92 11/14/22 21:43 Pulse Oximetry 97 11/14/22 21:43 Oxygen Delivery Me thod 11/14/22 21:43 Discharge Plan Discharge Condition: Stable Prescriptions: No Action montelukast [Singulair] 10 mg tablet 10 mg PO DAILY Qty: 90 1RF docusate sodium 100 mg capsule 100 mg PO PRN levothyroxine 100 mcg capsule 112 mcg PO DAILY sumatriptan succinate [Imitrex] 100 mg tablet See Rx Instructions PO .COMPLEX Qty: 90 0RF Rx Instructions: take 1 tab at onset of headache; if no relief, may repeat 1 tab after at least 2 hrs; max = 2 tabs/24 hrs PO mupirocin 2 % ointment 1 applic topical BID 7 Days Qty: 22 0RF buspirone 15 mg tablet 15 mg PO TID Qty: 90 1RF fluoxetine [Prozac] 20 mg capsule 20 mg PO DAILY Qty: 30 1RF cefuroxime axetil 500 mg tablet 500 mg PO BID Qty: 60 2RF doxycycline hyclate 100 mg tablet 100 mg PO BID 10 Days Qty: 20 0RF miscellaneous medical supply Misc 1 ea miscellaneous DAILY Qty: 1 0RF Rx Instructions: medihoney liothyronine 5 mcg tablet 5 mcg PO DAILY acetaminophen [Tylenol Extra Strength] 500 mg Tablet 1,000 mg PO PRN hydroxyzine pamoate 50 mg capsule 50 mg PO TID PRN (Reason: anxiety) Qty: 14 0RF triamcinolone acetonide 0.1 % ointment 1 applic topical BID PRN (Reason: Rash) Rx Instructions: Apply to affected area no more than 2 weeks per month. 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
[2022-11-14 21:51] VITALS: TEMP 36.5
--- NOTE | 2022-11-14 21:53 | ED_ITS ---
Documented by User: ANN-MARIE Kim 11/15/22 01:21 HPI - Abdominal Pain General: Chief Complaint: Abdominal Pain Stated Complaint: abd pain black poop Time Seen by Provider: 11/14/22 21:28 History of Present Illness: Patient is a 52-year-old female coming to the ED with abdominal pain. Symptoms started approximately 3 days ago. Abdominal pain is mild in its located bilaterally in the lower abdomen. She rates the pain currently a 3 out of 10. Denies any nausea or vomiting. She states that today her stool was a little more black than usual. She denies taking any Pepto- Bismol over the past couple days. Patient brought stool sample here to the ED. Denies any fevers, chills, diarrhea, constipation dysuria or hematuria. Associated Symptoms: Reports change in stool character (Little bit of black- colored stool); Denies chills, constipation, diarrhea, dysuria, fever(s), hematochezia, hematuria, nausea and vomiting Review of Systems Const: Denies: fever(s), chills or fatigue Eyes: Denies: change in vision or eye discomfort ENMT: Denies: throat pain, odynophagia, nasal discharge or nasal congestion Card: Denies: chest pain, palpitations, edema, swelling of feet/ankles, dyspnea on exertion or orthopnea Resp: Denies: dyspnea, productive cough or non-productive cough GI: Reports: abdominal pain and change in stool character (Little bit of black-colored stool); Denies: nausea, vomiting, diarrhea, constipation or hematochezia : Denies: flank pain, dysuria or hematuria Musc: Denies: neck pain, back pain or extremity swelling Skin/Breast: Denies: rash or new lesions Neuro: Denies: headache(s), numbness in extremities or weakness in extremities PFSH ED PFSH: Medical History Acute serous otitis media of left ear Anxiety Borderline intellectual functioning Controlled type 2 diabetes mellitus, without long-term current use of insulin Depression Dizziness Dumping syndrome Dyslipidemia Enrolled in chronic care management Generalized anxiety disorder GERD (gastroesophageal reflux disease) Grief reaction Hypertension Hypothyroidism Major depressive disorder, recurrent, moderate Nausea & vomiting Nausea & vomiting Obesity BHARAT (obstructive sleep apnea) Psychiatric care Recurrent UTI Seizure disorder Tinnitus Urinary tract infection with hematuria Surgical History History of colonoscopy with polypectomy (~09/2018) History of esophagogastroduodenoscopy (EGD) (~09/2018) History of gastric bypass 2020- [facility]- [facility] History of hysterectomy with oophorectomy History of laparoscopic cholecystectomy History of placement of ear tubes Family History Grandmother Cancer Father , at age 62 Lung disease Diabetes COPD (chronic obstructive pulmonary disease) Mother Rheumatic arteritis Depression Denies family history of Anesthesia complication Bleeding disorder Social History Smoking and tobacco status: never smoked Second hand smoke exposure: No Smoking risk assessment/counseling performed?: No Alcohol intake: never Desire information about alcohol rehabilitation?: No Counseling given: No Desire information about substance/drug rehabilitation?: No Counseling given: No Adopted: No Caregiver/support person: Yes Lives independently: Yes Housing: House Marital status: Single Highest education level completed: High School Graduate service: No Current occupational status: disabled Current occupational exposures/hazards: No Pets and animals: Yes History of recent travel: No Sexually active: Yes Ania/Scientologist: None Special ania needs: No Agree to transfusion: Yes Financial difficulty paying for basics: Not Very Hard Physical Exam Const: COMMON NORMALS: patient oriented x3 HENMT: COMMON NORMALS: normocephalic HEAD & SCALP: normocephalic MOUTH: Normal oral and palatal mucosa present THROAT: posterior oropharynx normal and uvula midline Neck/C-Spine: COMMON NORMALS: supple GENERAL: Yes normal visual inspection Resp: COMMON NORMALS: normal respiratory effort, No retractions, No use of accessory muscles and clear to auscultation bilaterally AUSCULTATION: clear to auscultation bilaterally Cardio: COMMON NORMALS: regular rate, regular rhythm, S1 normal heart sound present, S2 normal heart sound present, No gallops present (Cardio), No clicks present (Cardio), No murmurs present (Cardio) and Peripheral pulses 2+ throughout RATE: regular rate RHYTHM: regular rhythm HEART SOUNDS: S1 normal heart sound present and S2 normal heart sound present PERIPHERAL PULSES: Peripheral pulses 2+ throughout GI: COMMON NORMALS: Normal to inspection, nondistended, normoactive bowel sounds present, Soft to palpation and no masses PALPATION: Yes Soft to palpation and Yes Tenderness to palpation present (GI) (Generalized mild tenderness to bilateral lower part of abdomen.) : COMMON NORMALS: Yes no CVA tenderness BLADDER/KIDNEY EXAM: Yes no CVA tenderness Back/Pelvis: COMMON NORMALS: no CVA tenderness Extremity: COMMON NORMALS: normal to inspection Neuro: COMMON NORMALS: patient oriented x3 GAIT: Yes Normal gait present Skin: GENERAL SKIN EXAM: dry skin Course Vital Signs: Vital signs: Vital Signs Temperature 97.7 F 11/14/22 21:51 Pulse Rate 60 11/14/22 21:43 Respiratory Rate 16 11/14/22 21:43 Blood Pressure 163/92 11/14/22 21:43 Pulse Oximetry 99 11/14/22 22:25 Oxygen Delivery Me thod 11/14/22 22:25 MDM - Abdominal Pain Medical Decision Making Patient is a 52-year-old female coming to the ED with abdominal pain. Symptoms started approximately 3 days ago. Abdominal pain is mild in its located bilaterally in the lower abdomen. She rates the pain currently a 3 out of 10. Denies any nausea or vomiting. She states that today her stool was a little more black than usual. She denies taking any Pepto-Bismol over the past couple days. Patient brought stool sample here to the ED. Denies any fevers, chills, diarrhea, constipation dysuria or hematuria. Vitals are stable. Patient appears nontoxic and in no acute distress or pain. Generalized mild tenderness to bilateral lower part of abdomen. Rest of exam is benign. CBC and CMP are unremarkable. Stool sample negative for any occult blood. UA shows possible signs of UTI. Patient appears in no acute distress or pain and is stable for discharge home. She is diagnosed with a UTI and discharged home with an anti biotic. Told to follow-up with PCP in the next week for reevaluation. Return to ED precautions given. Patient understood and agreed with plan. Lab Data I reviewed the patient's lab results. 11/14/22 22:08 11/14/22 22:08 Labs/Radiology: Laboratory Results WBC 7.4 10^3/uL (4.0-10.0) 11/14/22 22:08 RBC 4.81 10^6/uL (4.1-5.3) 11/14/22 22:08 Hgb 14.2 g/dL (11.5-15.3) 11/14/22 22:08 Hct 43.3 % (37.0-47.0) 11/14/22 22:08 MCV 90.0 fl (81-99) 11/14/22 22:08 MCH 29.5 pg (28.0-34.0) 11/14/22 22:08 MCHC 32.8 g/dL (30.0-36.0) 11/14/22 22:08 RDW 12.1 % (12.1-15.1) 11/14/22 22:08 Plt Count 246 10^3/cmm (130-400) 11/14/22 22:08 MPV 9.0 fL (7.4-10.4) 11/14/22 22:08 Neut % (Auto) 64.3 % 11/14/22 22:08 Lymph % (Auto) 27.3 % 11/14/22 22:08 [place] % (Auto) 6.6 % 11/14/22 22:08 Eos % (Auto) 1.2 % 11/14/22 22:08 Baso % (Auto) 0.5 % 11/14/22 22:08 Neut # (Auto) 4.78 10^3/uL (1.8-7.7) 11/14/22 22:08 Lymph # (Auto) 2.0 10^3/uL (0.8-4.8) 11/14/22 22:08 [place] # (Auto) 0.5 10^3/uL (0.2-0.9) 11/14/22 22:08 Eos # (Auto) 0.1 10^3/uL (0.0-0.8) 11/14/22 22:08 Baso # (Auto) 0.0 10^3/uL (0.0-0.1) 11/14/22 22:08 Nucleated RBC % (auto) 0 % 11/14/22 22:08 Nucleated RBCs # 0.0 /100WBC 11/14/22 22:08 Sodium 138 mmol/L (136-145) 11/14/22 22:08 Potassium 3.8 mmol/L (3.5-5.1) 11/14/22 22:08 Chloride 106 mmol/L (98-107) 11/14/22 22:08 Carbon Dioxide 24 mmol/L (22-29) 11/14/22 22:08 Anion Gap 11.8 (5-19) 11/14/22 22:08 BUN 15 mg/dL (6-20) 11/14/22 22:08 Creatinine 0.6 mg/dL (0.5-0.9) 11/14/22 22:08 GFR Calculation 105.8 mL/min (90-130) 11/14/22 22:08 Glucose 92 mg/dL (65-115) 11/14/22 22:08 Calculated Osmolality 286 mOsm/kg (285-295) 11/14/22 22:08 Calcium 8.8 mg/dL (8.5-10.5) 11/14/22 22:08 Total Bilirubin 0.2 mg/dL (0.15-1.2) 11/14/22 22:08 AST 18 U/L (0-32) 11/14/22 22:08 ALT 20 U/L (0-33) 11/14/22 22:08 Alkaline Phosphatase 112 U/L (35-105) H 11/14/22 22:08 Total Protein 7.1 g/dL (6.6-8.7) 11/14/22 22:08 Albumin 3.9 g/dL (3.5-5.2) 11/14/22 22:08 Globulin 3.2 g/dL (1.3-4.6) 11/14/22 22:08 Lipase 62 U/L (13-60) H 11/14/22 22:08 Urine Color Yellow (Yellow) 11/14/22 22:53 Urine Appearance Clear (CLEAR) 11/14/22 22:53 Urine pH 5 (5-7) 11/14/22 22:53 Ur Specific [place] 1.025 (1.005-1.030) 11/14/22 22:53 Urine Protein Neg (Negative) 11/14/22 22:53 Urine Glucose (UA) Norm (Normal) 11/14/22 22:53 Urine Ketones Negative (Negative) 11/14/22 22:53 Urine Blood 2+ (Negative) H 11/14/22 22:53 Urine Nitrate Negative (Negative) 11/14/22 22:53 Urine Bilirubin Neg (Negative) 11/14/22 22:53 Urine Urobilinogen Norm mg/dL (Negative) 11/14/22 22:53 Ur Leukocyte Esterase Trace (Negative) H 11/14/22 22:53 Urine RBC 5-10 /hpf (0-2) H 11/14/22 22:53 Urine WBC 5-10 /hpf (0-5) H 11/14/22 22:53 Ur Squamous Epith Cells 15-25 /hpf (0-5) H 11/14/22 22:53 Amorphous Sediment Not Reportable 11/14/22 22:53 Urine Bacteria 1+ /hpf (NONE) H 11/14/22 22:53 Discharge Plan Discharge Patient Disposition: Home Clinical Impression: UTI (urinary tract infection) Qualifiers: Urinary tract infection type: acute cystitis Hematuria presence: with hematuria Qualified Code(s): N30.01 - Acute cystitis with hematuria Condition: Stable Prescriptions: New cefdinir 300 mg capsule 300 mg PO BID 5 Days Qty: 10 0RF No Action montelukast [Singulair] 10 mg tablet 10 mg PO DAILY Qty: 90 1RF docusate sodium 100 mg capsule 100 mg PO PRN levothyroxine 100 mcg capsule 112 mcg PO DAILY sumatriptan succinate [Imitrex] 100 mg tablet See Rx Instructions PO .COMPLEX Qty: 90 0RF Rx Instructions: take 1 tab at onset of headache; if no relief, may repeat 1 tab after at least 2 hrs; max = 2 tabs/24 hrs PO mupirocin 2 % ointment 1 applic topical BID 7 Days Qty: 22 0RF buspirone 15 mg tablet 15 mg PO TID Qty: 90 1RF fluoxetine [Prozac] 20 mg capsule 20 mg PO DAILY Qty: 30 1RF cefuroxime axetil 500 mg tablet 500 mg PO BID Qty: 60 2RF doxycycline hyclate 100 mg tablet 100 mg PO BID 10 Days Qty: 20 0RF miscellaneous medical supply Misc 1 ea miscellaneous DAILY Qty: 1 0RF Rx Instructions: medihoney liothyronine 5 mcg tablet 5 mcg PO DAILY acetaminophen [Tylenol Extra Strength] 500 mg Tablet 1,000 mg PO PRN hydroxyzine pamoate 50 mg capsule 50 mg PO TID PRN (Reason: anxiety) Qty: 14 0RF triamcinolone acetonide 0.1 % ointment 1 applic topical BID PRN (Reason: Rash) Rx Instructions: Apply to affected area no more than 2 weeks per month. Not for face Lomotil 2.5-0.025 mg tablet 1 tab PO Q8H PRN (Reason: diarrhea) Qty: 10 0RF ondansetron 4 mg tablet,disintegrating 4 mg PO Q6H PRN (Reason: nausea and vomiting) Qty: 14 0RF ondansetron 4 mg tablet,disintegrating 4 mg PO Q6H PRN (Reason: nausea and vomiting) Qty: 14 0RF Miralax 17 gram/dose powder 17 g PO DAILY PRN (Reason: constipation) Qty: 119 0RF Discharge Orders: Discharge ED (Routine); Ordered 11/14/22 Ordered By: Khris Craig Discharge Diet: Regular Discharge Activity: Increase activity as tolerated Patient Instructions: Urinary Tract Infection in Women (DC) Activity Restrictions/Additional Instructions: Follow-up with medical provider as directed in the next 7 to 10 days for reevaluation. Take medications as prescribed. Return to the ER or your medical provider if condition worsens. Please read and understand discharge instructions. Thank you for choosing [facility] for your healthcare needs today. Please realize this is an emergency room and that we are providing you with a medical screening exam and this may not be complete and all inclusive of all the testing and or work up that you may need to determine your ailment or severity of your illness. It is very important that you follow up as instructed or that you return to the Emergency Department should you have concerns or if your condition changes or worsens in any way. Coding Level of Care Code ED Lining Stuffer for Chg Fwd Exam Comprehensive Documented by User: Madan Hatfield DO 11/15/22 05:48 HPI - Abdominal Pain General: Chief Complaint: Abdominal Pain Stated Complaint: abd pain black poop Time Seen by Provider: 11/14/22 21:28 PFSH ED PFSH: Medical History Acute serous otitis media of left ear Anxiety Borderline intellectual functioning Controlled type 2 diabetes mellitus, without long-term current use of insulin Depression Dizziness Dumping syndrome Dyslipidemia Enrolled in chronic care management Generalized anxiety disorder GERD (gastroesophageal reflux disease) Grief reaction Hypertension Hypothyroidism Major depressive disorder, recurrent, moderate Nausea & vomiting Nausea & vomiting Obesity BHARAT (obstructive sleep apnea) Psychiatric care Recurrent UTI Seizure disorder Tinnitus Urinary tract infection with hematuria Surgical History History of colonoscopy with polypectomy (~09/2018) History of esophagogastroduodenoscopy (EGD) (~09/2018) History of gastric bypass 2020- - History of hysterectomy with oophorectomy History of laparoscopic cholecystectomy History of placement of ear tubes Family History Grandmother Cancer Father , at age 62 Lung disease Diabetes COPD (chronic obstructive pulmonary disease) Mother Rheumatic arteritis Depression Denies family history of Anesthesia complication Bleeding disorder Social History Smoking and tobacco status: never smoked Second hand smoke exposure: No Smoking risk assessment/counseling performed?: No Alcohol intake: never Desire information about alcohol rehabilitation?: No Counseling given: No Desire information about substance/drug rehabilitation?: No Counseling given: No Adopted: No Caregiver/support person: Yes Lives independently: Yes Housing: House Marital status: Single Highest education level completed: High School Graduate service: No Current occupational status: disabled Current occupational exposures/hazards: No Pets and animals: Yes History of recent travel: No Sexually active: Yes Ania/Scientologist: None Special ania needs: No Agree to transfusion: Yes Financial difficulty paying for basics: Not Very Hard Course Vital Signs: Vital signs: Vital Signs Temperature 97.7 F 11/14/22 21:51 Pulse Rate 60 11/14/22 21:43 Respiratory Rate 16 11/14/22 21:43 Blood Pressure 163/92 11/14/22 21:43 Pulse Oximetry 99 11/14/22 22:25 Oxygen Delivery Me thod 11/14/22 22:25 MDM - Abdominal Pain Medical Decision Making Patient is a 52-year-old female coming to the ED with abdominal pain. Symptoms started approximately 3 days ago. Abdominal pain is mild in its located bilaterally in the lower abdomen. She rates the pain currently a 3 out of 10. Denies any nausea or vomiting. She states that today her stool was a little more black than usual. She denies taking any Pepto-Bismol over the past couple days. Patient brought stool sample here to the ED. Denies any fevers, chills, diarrhea, constipation dysuria or hematuria. Vitals are stable. Patient appears nontoxic and in no acute distress or pain. Generalized mild tenderness to bilateral lower part of abdomen. Rest of exam is benign. CBC and CMP are unremarkable. Stool sample negative for any occult blood. UA shows possible si gns of UTI. Patient appears in no acute distress or pain and is stable for discharge home. She is diagnosed with a UTI and discharged home with an antibiotic. Told to follow-up with PCP in the next week for reevaluation. Return to ED precautions given. Patient understood and agreed with plan. Chart reviewed and patient discussed with midlevel. Agree with assessment and plan. Lab Data 11/14/22 22:08 11/14/22 22:08 Labs/Radiology: Laboratory Results WBC 7.4 10^3/uL (4.0-10.0) 11/14/22 22:08 RBC 4.81 10^6/uL (4.1-5.3) 11/14/22 22:08 Hgb 14.2 g/dL (11.5-15.3) 11/14/22 22:08 Hct 43.3 % (37.0-47.0) 11/14/22 22:08 MCV 90.0 fl (81-99) 11/14/22 22:08 MCH 29.5 pg (28.0-34.0) 11/14/22 22:08 MCHC 32.8 g/dL (30.0-36.0) 11/14/22 22:08 RDW 12.1 % (12.1-15.1) 11/14/22 22:08 Plt Count 246 10^3/cmm (130-400) 11/14/22 22:08 MPV 9.0 fL (7.4-10.4) 11/14/22 22:08 Neut % (Auto) 64.3 % 11/14/22 22:08 Lymph % (Auto) 27.3 % 11/14/22 22:08 [place] % (Auto) 6.6 % 11/14/22 22:08 Eos % (Auto) 1.2 % 11/14/22 22:08 Baso % (Auto) 0.5 % 11/14/22 22:08 Neut # (Auto) 4.78 10^3/uL (1.8-7.7) 11/14/22 22:08 Lymph # (Auto) 2.0 10^3/uL (0.8-4.8) 11/14/22 22:08 [place] # (Auto) 0.5 10^3/uL (0.2-0.9) 11/14/22 22:08 Eos # (Auto) 0.1 10^3/uL (0.0-0.8) 11/14/22 22:08 Baso # (Auto) 0.0 10^3/uL (0.0-0.1) 11/14/22 22:08 Nucleated RBC % (auto) 0 % 11/14/22 22:08 Nucleated RBCs # 0.0 /100WBC 11/14/22 22:08 Sodium 138 mmol/L (136-145) 11/14/22 22:08 Potassium 3.8 mmol/L (3.5-5.1) 11/14/22 22:08 Chloride 106 mmol/L (98-107) 11/14/22 22:08 Carbon Dioxide 24 mmol/L (22-29) 11/14/22 22:08 Anion Gap 11.8 (5-19) 11/14/22 22:08 BUN 15 mg/dL (6-20) 11/14/22 22:08 Creatinine 0.6 mg/dL (0.5-0.9) 11/14/22 22:08 GFR Calculation 105.8 mL/min (90-130) 11/14/22 22:08 Glucose 92 mg/dL (65-115) 11/14/22 22:08 Calculated Osmolality 286 mOsm/kg (285-295) 11/14/22 22:08 Calcium 8.8 mg/dL (8.5-10.5) 11/14/22 22:08 Total Bilirubin 0.2 mg/dL (0.15-1.2) 11/14/22 22:08 AST 18 U/L (0-32) 11/14/22 22:08 ALT 20 U/L (0-33) 11/14/22 22:08 Alkaline Phosphatase 112 U/L (35-105) H 11/14/22 22:08 Total Protein 7.1 g/dL (6.6-8.7) 11/14/22 22:08 Albumin 3.9 g/dL (3.5-5.2) 11/14/22 22:08 Globulin 3.2 g/dL (1.3-4.6) 11/14/22 22:08 Lipase 62 U/L (13-60) H 11/14/22 22:08 Urine Color Yellow (Yellow) 11/14/22 22:53 Urine Appearance Clear (CLEAR) 11/14/22 22:53 Urine pH 5 (5-7) 11/14/22 22:53 Ur Specific [place] 1.025 (1.005-1.030) 11/14/22 22:53 Urine Protein Neg (Negative) 11/14/22 22:53 Urine Glucose (UA) Norm (Normal) 11/14/22 22:53 Urine Ketones Negative (Negative) 11/14/22 22:53 Urine Blood 2+ (Negative) H 11/14/22 22:53 Urine Nitrate Negative (Negative) 11/14/22 22:53 Urine Bilirubin Neg (Negative) 11/14/22 22:53 Urine Urobilinogen Norm mg/dL (Negative) 11/14/22 22:53 Ur Leukocyte Esterase Trace (Negative) H 11/14/22 22:53 Urine RBC 5-10 /hpf (0-2) H 11/14/22 22:53 Urine WBC 5-10 /hpf (0-5) H 11/14/22 22:53 Ur Squamous Epith Cells 15-25 /hpf (0-5) H 11/14/22 22:53 Amorphous Sediment Not Reportable 11/14/22 22:53 Urine Bacteria 1+ /hpf (NONE) H 11/14/22 22:53 Discharge Plan Discharge Patient Disposition: Home Clinical Impression: UTI (urinary tract infection) Qualifiers: Urinary tract infection type: acute cystitis Hematuria presence: with hematuria Qualified Code(s): N30.01 - Acute cystitis with hematuria Condition: Stable Prescriptions: New cefdinir 300 mg capsule 300 mg PO BID 5 Days Qty: 10 0RF No Action montelukast [Singulair] 10 mg tablet 10 mg PO DAILY Qty: 90 1RF docusate sodium 100 mg capsule 100 mg PO PRN levothyroxine 100 mcg capsule 112 mcg PO DAILY sumatriptan succinate [Imitrex] 100 mg tablet See Rx Instructions PO .COMPLEX Qty: 90 0RF Rx Instructions: take 1 tab at onset of headache; if no relief, may repeat 1 tab after at least 2 hrs; max = 2 tabs/24 hrs PO mupirocin 2 % ointment 1 applic topical BID 7 Days Qty: 22 0RF buspirone 15 mg tablet 15 mg PO TID Qty: 90 1RF fluoxetine [Prozac] 20 mg capsule 20 mg PO DAILY Qty: 30 1RF cefuroxime axetil 500 mg tablet 500 mg PO BID Qty: 60 2RF doxycycline hyclate 100 mg tablet 100 mg PO BID 10 Days Qty: 20 0RF miscellaneous medical supply Misc 1 ea miscellaneous DAILY Qty: 1 0RF Rx Instructions: medihoney liothyronine 5 mcg tablet 5 mcg PO DAILY acetaminophen [Tylenol Extra Strength] 500 mg Tablet 1,000 mg PO PRN hydroxyzine pamoate 50 mg capsule 50 mg PO TID PRN (Reason: anxiety) Qty: 14 0RF triamcinolone acetonide 0.1 % ointment 1 applic topical BID PRN (Reason: Rash) Rx Instructions: Apply to affected area no more than 2 weeks per month. Not for face Lomotil 2.5-0.025 mg tablet 1 tab PO Q8H PRN (Reason: diarrhea) Qty: 10 0RF ondansetron 4 mg tablet,disintegrating 4 mg PO Q6H PRN (Reason: nausea and vomiting) Qty: 14 0RF ondansetron 4 mg tablet,disintegrating 4 mg PO Q6H PRN (Reason: nausea and vomiting) Qty: 14 0RF Miralax 17 gram/dose powder 17 g PO DAILY PRN (Reason: constipation) Qty: 119 0RF Discharge Orders: Discharge ED (Routine); Ordered 11/14/22 Ordered By: Khris Craig Discharge Diet: Regular Discharge Activity: Increase activity as tolerated Patient Instructions: Urinary Tract Infection in Women (DC) Activity Restrictions/Additional Instructions: Follow-up with medical provider as directed in the next 7 to 10 days for reevaluation. Take medications as prescribed. Return to the ER or your medical provider if condition worsens. Please read and understand discharge instructions. Thank you for choosing [facility] for your healthcare needs today. Please realize this is an emergency room and that we are providing you with a medical screening exam and this may not be complete and all inclusive of all the testing and or work up that you may need to determine your ailment or severity of your illness. It is very important that you follow up as instructed or that you return to the Emergency Department should you have concerns or if your condition changes or worsens in any way. Coding Level of Care Code ED Lining Stuffer for Robyn Ruiz Exam Comprehensive
[2022-11-14 22:14] LABS: Basophils % 0.5 %; Eosinophils # 0.1 10^3/uL (0.0-0.8); Eosinophils % 1.2 %; Hematocrit 43.3 % (37.0-47.0); Hemoglobin 14.2 g/dL (11.5-15.3); Lymphocytes % 27.3 %; Mean Corpuscular HGB Conc 32.8 g/dL (30.0-36.0); Mean Corpuscular Hemoglobin 29.5 pg (28.0-34.0); Monocytes # 0.5 10^3/uL (0.2-0.9); Monocytes % 6.6 %; Neutrophils # 4.78 10^3/uL (1.8-7.7); Neutrophils % 64.3 %; Nucleated Red Blood Cells % 0 %; Platelet Count 246 10^3/cmm (130-400); Red Blood Count 4.81 10^6/uL (4.1-5.3); Red Cell Distribution Width 12.1 % (12.1-15.1); White Blood Count 7.4 10^3/uL (4.0-10.0)
[2022-11-14 22:25] VITALS: O2SAT 99
[2022-11-14 22:44] LABS: Alanine Aminotransferase 20 U/L (0-33); Albumin Level 3.9 g/dL (3.5-5.2); Alkaline Phosphatase 112 U/L (35-105); Anion Gap 11.8 (5-19); Aspartate Amino Transferase 18 U/L (0-32); Blood Urea Nitrogen 15 mg/dL (6-20); Calcium 8.8 mg/dL (8.5-10.5); Carbon Dioxide 24 mmol/L (22-29); Chloride 106 mmol/L (98-107); Globulin 3.2 g/dL (1.3-4.6); Glomerular Filtration Rate 105.8 mL/min (90-130); Glucose 92 mg/dL (65-115); Lipase 62 U/L (13-60); Osmolality Calculated 286 mOsm/kg (285-295); Potassium 3.8 mmol/L (3.5-5.1); Sodium 138 mmol/L (136-145); Total Bilirubin 0.2 mg/dL (0.15-1.2); Total Protein 7.1 g/dL (6.6-8.7)
[2022-11-14 23:45] LABS: Protein Urine Neg (Negative); Specific Gravity, Urine 1.025 (1.005-1.030); Urine Appearance Clear (CLEAR); Urine Color Yellow (Yellow); pH Urine 5 (5-7)
[2022-11-14 23:46] LABS: Add Urine Microscopic? YES; Bacteria Urine 1+ /hpf; Bilirubin Urine Neg (Negative); Blood Urine 2+ (Negative); Glucose Urine UA Norm (Normal); Ketones Urine Negative (Negative); Leukocyte Esterase Urine Trace (Negative); Nitrate Urine Negative (Negative); Squamous Epithelial Cell Urine 15-25 /hpf (0-5); Urobilinogen Urine Norm (Negative)
[2022-11-14 23:47] LABS: Add Urine Culture? No
== END 2022-11-15 00:09 | disposition home or self-care (01) ==
PROVIDERS: Emergency Medicine; Emergency Provider Physician Assistant
DX: N30.01 Acute cystitis with hematuria (principal); E11.9 Type 2 diabetes mellitus without complications; E78.5 Hyperlipidemia, unspecified; I10 Essential (primary) hypertension; Z87.440 Personal history of urinary (tract) infections
CPT/HCPCS: 36415; 80053; 81001; 82274; 83690; 85025; 99283

== ENCOUNTER → 2022-11-18 10:12 | Outpatient (BNVA) | payer MEDICARE, MEDICAID, SELFPAY | PROVIDERS: Visit Provider Otolaryngology | DX: H66.003 Acute suppurative otitis media without spontaneous rupture of ear drum, bilateral (principal); L98.9 Disorder of the skin and subcutaneous tissue, unspecified; L98.492 Non-pressure chronic ulcer of skin of other sites with fat layer exposed | CPT/HCPCS: 97597; 99213; A6021 ==

== ENCOUNTER 2022-11-20 11:40 | Outpatient (CLI) | payer MEDICARE, MEDICAID, SELFPAY ==
--- NOTE | 2022-11-20 11:53 | MR_ITS ---
WS: [id number] MRI LEFT KNEE HISTORY: INTERNAL DERANGEMENT L KNEE COMPARISON: 10/19/2015 Anterior cruciate ligament: Increased signal throughout the ACL although the majority of the fibers a ppear intact consistent with mucoid degeneration. Contiguous with the distal anterior ACL is a lobula eusebia cystic mass measuring 15 x 21 mm extending into Hoffa's fat pad. Posterior cruciate ligament: Intact. Medial collateral ligament: Intact. Posterior lateral corner structures: Intact. Medial menisci: Intact. Normal signal, size and shape. Lateral meniscus: Intact. Normal signal, size and shape. Extensor mechanism: Distal quadriceps tendon and patellar tendons are intact. Fluid and soft tissue: Very small joint effusion. No Carlin's cyst. Osseous and articular structures: Patellofemoral compartment: Mild narrowing of the patellofemoral joint space. Subchondral cystic marrufo ges and chondromalacia are noted along the patellar eminence and lateral patellar facet. Medial compartment: Mild narrowing of the medial compartment. Mild chondromalacia. Lateral compartment: Mild narrowing of the lateral compartment with mild thinning of the cartilage. There is a very small lobulated cystic mass along the popliteus tendon near the fibular head measurin g 8 mm. May be a small ganglion. MR/MR knee LT wo con* [id number] IMPRESSION: 1. Advanced mucoid degeneration of the ACL. 2. Lobulated cystic mass measuring 15 x 21 mm inseparable from the distal ACL extending into Hoffa's fat pad. Probably representing a small ganglion. 3. No meniscal tear. 4. Mild chondromalacia involving the patellar eminence and lateral facet. 5. Mild narrowing of the medial and lateral compartments with mild chondromala brenda medial compartment.
== END 2022-11-20 11:41 | disposition home or self-care (01) ==
LOC: RAD 11:42
PROVIDERS: PCP Nurse Practitioner Family; Visit Provider Orthopaedic Surgery
DX: M23.92 Unspecified internal derangement of left knee (principal); M94.262 Chondromalacia, left knee
CPT/HCPCS: 73721

== ENCOUNTER → 2022-12-02 08:26 | Outpatient (BNVA) | payer MEDICARE, MEDICAID, SELFPAY | PROVIDERS: PCP Nurse Practitioner Family; Visit Provider Otolaryngology | DX: Z96.22 Myringotomy tube(s) status (principal); H69.83 Other specified disorders of Eustachian tube, bilateral | CPT/HCPCS: 99212 ==

== ENCOUNTER 2023-02-23 21:38 | Emergency (ER) | payer MEDICARE, MEDICAID, SELFPAY ==
[2023-02-23 21:43] VITALS: BP 139/84; PULSE 72; RESP 20; TEMP 36.4; O2SAT 99; BMI 41.6
--- NOTE | 2023-02-23 21:57 | ED_ITS ---
HPI - Nausea/Vomiting/Diarrhea General: Chief complaint: Nausea/Vomiting/Diarrhea Stated complaint: diarrhea Time Seen by Provider: 02/23/23 21:56 History of Present Illness: 52-year-old female comes in today with diarrhea starting 3 days ago. Review of the record noted that patient had been on antibiotics within the last 2 weeks, amoxicillin, for an upper respiratory infection. Patient appears nontoxic. Patient reports she is unable to control her bowel movements. Patient has been seen at urgent care 2 to 3 days ago and came in today due to persisting diarrhea. Patient appears nontoxic. Patient has had previous episodes of uncontrolled diarrhea. Patient has a history of RNY gastric bypass. Patient denies any blood in vomit or stool, or significant abdominal pain. Associated symtoms: Denies chest pain Review of Systems General: Reports: 10 or more systems reviewed and unremarkable except in HPI and below Const: Denies: fever(s) Card: Denies: chest pain Resp: Denies: dyspnea GI: Reports: diarrhea : Denies: difficulty voiding Skin/Breast: Denies: rash PFSH ED PFSH: Medical History Acute serous otitis media of left ear Anxiety Borderline intellectual functioning Controlled type 2 diabetes mellitus, without long-term current use of insulin Depression Dizziness Dumping syndrome Dyslipidemia Enrolled in chronic care management Generalized anxiety disorder GERD (gastroesophageal reflux disease) Grief reaction Hypertension Hypothyroidism Major depressive disorder, recurrent, moderate Nausea & vomiting Nausea & vomiting Obesity BHARAT (obstructive sleep apnea) Psychiatric care Recurrent UTI Seizure disorder Tinnitus Urinary tract infection with hematuria Surgical History History of colonoscopy with polypectomy (~09/2018) History of esophagogastroduodenoscopy (EGD) (~09/2018) History of gastric bypass 2020- [facility]- [facility] History of hysterectomy with oophorectomy History of laparoscopic cholecystectomy History of placement of ear tubes Family History Grandmother Cancer Father , at age 62 Lung disease Diabetes COPD (chronic obstructive pulmonary disease) Mother Rheumatic arteritis Depression Denies family history of Anesthesia complication Bleeding disorder Social History Smoking and tobacco status: never smoked Second hand smoke exposure: No Smoking risk assessment/counseling performed?: No Alcohol intake: never Desire information about alcohol rehabilitation?: No Counseling given: No Desire information about substance/drug rehabilitation?: No Counseling given: No Adopted: No Caregiver/support person: Yes Lives independently: Yes Housing: House Marital status: Single Highest education level completed: High School Graduate service: No Current occupational status: disabled Current occupational exposures/hazards: No Pets and animals: Yes Sexually active: Yes Ania/Nondenominational: None Special ania needs: No Agree to transfusion: Yes Financial difficulty paying for basics: Not Very Hard Physical Exam Const: COMMON NORMALS: alert HENMT: COMMON NORMALS: normocephalic HEAD & SCALP: normocephalic Neck/C-Spine: COMMON NORMALS: full ROM Chest: COMMONS NORMALS: normal inspection of the chest Resp: COMMON NORMALS: normal respiratory effort and clear to auscultation bilaterally AUSCULTATION: clear to auscultation bilaterally Cardio: COMMON NORMALS: regular rate and regular rhythm RATE: regular rate RHYTHM: regular rhythm Back/Pelvis: COMMON NORMALS: thoracic and lumbar spine normal to inspection Extremity: COMMON NORMALS: full ROM Neuro: SENSORIUM/ORIENTATION: Yes alert Skin: COMMON NORMALS: turgor normal GENERAL SKIN EXAM: turgor normal Course Vital Signs: Vital signs: Vital Signs Temperature 97.6 F 02/23/23 21:43 Pulse Rate 78 02/23/23 23:44 Respiratory Rate 16 02/23/23 23:44 Blood Pressure 140/95 02/23/23 23:44 Pulse Oximetry 96 02/23/23 23:44 Oxygen Delivery Me thod Room Air 02/23/23 22:16 MDM - Nausea/Vomiting/Diarrhea Medical Decision Making 52-year-old female comes in today for complaints of diarrhea. On exam patient has abdomen soft and nontender. Bowel sounds are increased. Vital signs are normal. Differential diagnosis includes but not limited to antibiotic associated diarrhea, C. difficile colitis, diarrhea associated with gastric bypass surgery. CBC was unremarkable. Blood chemistries noted potassium of 3.4. Lipase was 61. Patient was given 1 L of IV fluid for mild dehydration. The patient probably has diarrhea secondary to recent antibiotic use. Recommended Flagyl 500 mg 3 times a day for the next 5 days. Discussed healthy diet and activity. Patient reported understanding and agreed to plan. Lab Data 02/23/23 22:07 02/23/23 22:07 Laboratory Results WBC 7.3 10^3/uL (4.0-10.0) 02/23/23 22:07 RBC 4.76 10^6/uL (4.1-5.3) 02/23/23 22:07 Hgb 13.9 g/dL (11.5-15.3) 02/23/23 22:07 Hct 42.1 % (37.0-47.0) 02/23/23 22:07 MCV 88.4 fl (81-99) 02/23/23 22:07 MCH 29.2 pg (28.0-34.0) 02/23/23 22:07 MCHC 33.0 g/dL (30.0-36.0) 02/23/23 22:07 RDW 12.4 % (12.1-15.1) 02/23/23 22:07 Plt Count 276 10^3/cmm (130-400) 02/23/23 22:07 MPV 8.9 fL (7.4-10.4) 02/23/23 22:07 Neut % (Auto) 60.7 % 02/23/23 22:07 Lymph % (Auto) 31.2 % 02/23/23 22:07 Morris % (Auto) 5.9 % 02/23/23 22:07 Eos % (Auto) 1.2 % 02/23/23 22:07 Baso % (Auto) 0.7 % 02/23/23 22:07 Neut # (Auto) 4.46 10^3/uL (1.8-7.7) 02/23/23 22:07 Lymph # (Auto) 2.3 10^3/uL (0.8-4.8) 02/23/23 22:07 Morris # (Auto) 0.4 10^3/uL (0.2-0.9) 02/23/23 22:07 Eos # (Auto) 0.1 10^3/uL (0.0-0.8) 02/23/23 22:07 Baso # (Auto) 0.1 10^3/uL (0.0-0.1) 02/23/23 22:07 Nucleated RBC % (auto) 0 % 02/23/23 22:07 Nucleated RBCs # 0.0 /100WBC 02/23/23 22:07 Sodium 140 mmol/L (136-145) 02/23/23 22:07 Potassium 3.4 mmol/L (3.5-5.1) L 02/23/23 22:07 Chloride 107 mmol/L (98-107) 02/23/23 22:07 Carbon Dioxide 21 mmol/L (22-29) L 02/23/23 22:07 Anion Gap 15.4 (5-19) 02/23/23 22:07 BUN 12 mg/dL (6-20) 02/23/23 22:07 Creatinine 0.7 mg/dL (0.5-0.9) 02/23/23 22:07 GFR Calculation 88.6 mL/min (90-130) L 02/23/23 22:07 Glucose 104 mg/dL (65-115) 02/23/23 22:07 Calculated Osmolality 290 mOsm/kg (285-295) 02/23/23 22:07 Calcium 8.7 mg/dL (8.5-10.5) 02/23/23 22:07 Total Bilirubin 0.2 mg/dL (0.15-1.2) 02/23/23 22:07 AST 25 U/L (0-32) 02/23/23 22:07 ALT 30 U/L (0-33) 02/23/23 22:07 Alkaline Phosphatase 102 U/L (35-105) 02/23/23 22:07 Total Protein 7.1 g/dL (6.6-8.7) 02/23/23 22:07 Albumin 3.7 g/dL (3.5-5.2) 02/23/23 22:07 Globulin 3.4 g/dL (1.3-4.6) 02/23/23 22:07 Lipase 61 U/L (13-60) H 02/23/23 22:07 Discharge Plan Discharge Patient Disposition: Home Clinical Impression: Antibiotic-associated diarrhea Condition: Stable Prescriptions: New metronidazole 500 mg tablet 500 mg PO TID Qty: 14 0RF No Action montelukast [Singulair] 10 mg tablet 10 mg PO DAILY Qty: 90 1RF docusate sodium 100 mg capsule 100 mg PO PRN levothyroxine 100 mcg capsule 112 mcg PO DAILY sumatriptan succinate [Imitrex] 100 mg tablet See Rx Instructions PO .COMPLEX Qty: 90 0RF Rx Instructions: take 1 tab at onset of headache; if no relief, may repeat 1 tab after at least 2 hrs; max = 2 tabs/24 hrs PO mupirocin 2 % ointment 1 applic topical BID 7 Days Qty: 22 0RF diphenoxylate-atropine [Lomotil] 2.5-0.025 mg tablet 1 tab PO Q6H PRN (Reason: diarrhea) Qty: 20 0RF miscellaneous medical supply Misc 1 ea miscellaneous DAILY Qty: 1 0RF Rx Instructions: [facility] fluoxetine [Prozac] 20 mg capsule 20 mg PO DAILY Qty: 30 1RF buspirone 15 mg tablet 15 mg PO TID Qty: 90 1RF amoxicillin 875 mg tablet 875 mg PO BID 7 Days Qty: 14 0RF levocetirizine [Xyzal] 5 mg tablet 5 mg PO DAILY PRN (Reason: allergy symptoms) Qty: 60 0RF liothyronine 5 mcg tablet 5 mcg PO DAILY acetaminophen [Tylenol Extra Strength] 500 mg Tablet 1,000 mg PO PRN hydroxyzine pamoate 50 mg capsule 50 mg PO TID PRN (Reason: anxiety) Qty: 14 0RF triamcinolone acetonide 0.1 % ointment 1 applic topical BID PRN (Reason: Rash) Rx Instructions: Apply to affected area no more than 2 weeks per month. Not for face Lomotil 2.5-0.025 mg tablet 1 tab PO Q8H PRN (Reason: diarrhea) Qty: 10 0RF ondansetron 4 mg tablet,disintegrating 4 mg PO Q6H PRN (Reason: nausea and vomiting) Qty: 14 0RF Discharge Orders: Discharge ED (Routine); Ordered 02/23/23 Ordered By: Ash Burton Referrals: Savannah German FNP [Primary Care Provider] - Discharge Diet: Usual diet Discharge Activity: Increase activity as tolerated Patient Instructions: Acute Diarrhea (ED) Activity Restrictions/Additional Instructions: Continue with normal diet. You may need to bulk your stools up with fiber in order to add more consistency to your stools. I believe the diarrhea is second karly to antibiotic use from your recent upper respiratory infection. The metronidazole should help correct this and stop the diarrhea. Follow-up with primary care in 2 to 3 days for recheck. Return to ED for worsening symptoms such as severe abdominal pain, high fever greater than 100.4, blood in vomit or stool. Coding Level of Care Code ED Electrocardiograph Operator for Robyn Ruiz
[2023-02-23 22:16] VITALS: O2SAT 95
[2023-02-23] MEDS: sodium chloride 0.9% 1,000 ML 999 ML IV (22:16)
[2023-02-23 22:27] LABS: Basophils # 0.1 10^3/uL (0.0-0.1); Basophils % 0.7 %; Eosinophils # 0.1 10^3/uL (0.0-0.8); Eosinophils % 1.2 %; Hematocrit 42.1 % (37.0-47.0); Hemoglobin 13.9 g/dL (11.5-15.3); Lymphocytes # 2.3 10^3/uL (0.8-4.8); Lymphocytes % 31.2 %; Mean Corpuscular Hemoglobin 29.2 pg (28.0-34.0); Mean Corpuscular Volume 88.4 fl (81-99); Mean Platelet Volume 8.9 fL (7.4-10.4); Monocytes # 0.4 10^3/uL (0.2-0.9); Monocytes % 5.9 %; Neutrophils # 4.46 10^3/uL (1.8-7.7); Neutrophils % 60.7 %; Nucleated Red Blood Cells % 0 %; Platelet Count 276 10^3/cmm (130-400); Red Blood Count 4.76 10^6/uL (4.1-5.3); Red Cell Distribution Width 12.4 % (12.1-15.1); White Blood Count 7.3 10^3/uL (4.0-10.0)
[2023-02-23 22:43] LABS: Alanine Aminotransferase 30 U/L (0-33); Albumin Level 3.7 g/dL (3.5-5.2); Alkaline Phosphatase 102 U/L (35-105); Anion Gap 15.4 (5-19); Aspartate Amino Transferase 25 U/L (0-32); Blood Urea Nitrogen 12 mg/dL (6-20); Calcium 8.7 mg/dL (8.5-10.5); Carbon Dioxide 21 mmol/L (22-29); Chloride 107 mmol/L (98-107); Globulin 3.4 g/dL (1.3-4.6); Glomerular Filtration Rate 88.6 mL/min (90-130); Glucose 104 mg/dL (65-115); Lipase 61 U/L (13-60); Osmolality Calculated 290 mOsm/kg (285-295); Potassium 3.4 mmol/L (3.5-5.1); Sodium 140 mmol/L (136-145); Total Bilirubin 0.2 mg/dL (0.15-1.2); Total Protein 7.1 g/dL (6.6-8.7)
[2023-02-23] MEDS: diphenoxylate/atropine Tablet 2 TAB PO (23:12)
[2023-02-23] MEDS: metroNIDAZOLE 500 MG Tablet PO (23:12)
[2023-02-23 23:44] VITALS: BP 140/95; PULSE 78; RESP 16; O2SAT 96
== END 2023-02-23 23:45 | disposition home or self-care (01) ==
PROVIDERS: Emergency Provider Nurse Practitioner Family; PCP Nurse Practitioner Family
DX: K52.1 Toxic gastroenteritis and colitis (principal); T36.0X5A Adverse effect of penicillins, initial encounter; E11.9 Type 2 diabetes mellitus without complications; E78.5 Hyperlipidemia, unspecified; I10 Essential (primary) hypertension; X58.XXXA Exposure to other specified factors, initial encounter
CPT/HCPCS: 80053; 83690; 85025; 87493; 96360; 96361; 99284; J7030

== ENCOUNTER → 2023-03-03 08:58 | Outpatient (BNVA) | payer MEDICARE, MEDICAID, SELFPAY | PROVIDERS: PCP Nurse Practitioner Family; Visit Provider Otolaryngology | DX: H69.83 Other specified disorders of Eustachian tube, bilateral (principal); Z96.22 Myringotomy tube(s) status | CPT/HCPCS: 99213 ==

== ENCOUNTER 2023-04-14 22:35 | Emergency (ER) | payer MEDICARE, MEDICAID, SELFPAY ==
[2023-04-14 22:47] VITALS: BP 140/65; PULSE 70; RESP 16; TEMP 36.6; O2SAT 98; BMI 41.6
--- NOTE | 2023-04-14 23:19 | W.ED.EYEPROB ---
HPI - Eye Problem General: Chief complaint: Eye Problems Stated complaint: Possible [facility] Time Seen by Provider: 04/14/23 22:46 History of Present Illness: 53-year-old female comes in today with complaints of bilateral eye irritation. Patient reports some itchiness to both eyes without any matting of the eyes or pain. Patient appears nontoxic. Patient appears no pain. Review of Systems General: Reports: 10 or more systems reviewed and unremarkable except in HPI and below Eyes: Reports: eye discomfort Card: Denies: chest pain Resp: Denies: dyspnea PFSH ED PFSH: Medical History Acute serous otitis media of left ear Anxiety Borderline intellectual functioning Controlled type 2 diabetes mellitus, without long-term current use of insulin Depression Dizziness Dumping syndrome Dyslipidemia Enrolled in chronic care management Generalized anxiety disorder GERD (gastroesophageal reflux disease) Grief reaction Hypertension Hypothyroidism Major depressive disorder, recurrent, moderate Nausea & vomiting Nausea & vomiting Obesity BHARAT (obstructive sleep apnea) Psychiatric care Recurrent UTI Seizure disorder Tinnitus Urinary tract infection with hematuria Surgical History History of colonoscopy with polypectomy (~09/2018) History of esophagogastroduodenoscopy (EGD) (~09/2018) History of gastric bypass - History of hysterectomy with oophorectomy History of laparoscopic cholecystectomy History of placement of ear tubes Family History Grandmother Cancer Father , at age 62 Lung disease Diabetes COPD (chronic obstructive pulmonary disease) Mother Rheumatic arteritis Depression Denies family history of Anesthesia complication Bleeding disorder Social History Smoking and tobacco status: never smoked Second hand smoke exposure: No Smoking risk assessment/counseling performed?: No Alcohol intake: never Desire information about alcohol rehabilitation?: No Counseling given: No Substance/Drug Use: never Desire information about substance/drug rehabilitation?: No Counseling given: No Adopted: No Caregiver/support person: Yes Lives independently: Yes Housing: House Marital status: Single Highest education level completed: High School Graduate service: No Current occupational status: disabled Current occupational exposures/hazards: No Pets and animals: Yes Sexually active: Yes Do you think of yourself as: Straight/Heterosexual Ania/Alevism: None Special ania needs: No Agree to transfusion: Yes Financial difficulty paying for basics: Not Very Hard Physical Exam Const: COMMON NORMALS: alert HENMT: COMMON NORMALS: normocephalic HEAD & SCALP: normocephalic Eye: GENERAL EYE: appearance normal, both eyes and all related structures CONJUNCTIVA: Yes conjunctival abnormal (Bilateral slightly pale) Resp: COMMON NORMALS: No use of accessory muscles Cardio: COMMON NORMALS: regular rate RATE: regular rate Back/Pelvis: COMMON NORMALS: thoracic and lumbar spine normal to inspection Extremity: COMMON NORMALS: normal to inspection Neuro: SENSORIUM/ORIENTATION: Yes alert Skin: COMMON NORMALS: turgor normal GENERAL SKIN EXAM: turgor normal Course Vital Signs: Vital signs: Vital Signs Temperature 97.8 F 04/14/23 22:47 Pulse Rate 70 04/14/23 22:47 Respiratory Rate 16 04/14/23 22:47 Blood Pressure 140/65 04/14/23 22:47 Pulse Oximetry 98 04/14/23 22:47 Oxygen Delivery Me thod Room Air 04/14/23 22:47 MDM - Eye Problem Medical Decision Making 53-year-old female comes in today with complaints of eye irritation. On exam bilateral conjunctiva are clear may be slightly pale with no discharge or erythema. Vital signs are normal. Differential diagnosis includes allergic conjunctivitis, viral syndrome, bacterial conjunctivitis. No signs of bacterial infection is noted at this time. Recommend treatment with OTC eyedrops. Patient reported understanding agreed to plan. Discharge Plan Discharge Patient Disposition: Home Clinical Impression: Acute allergic conjunctivitis of both eyes Condition: Stable Prescriptions: No Action montelukast [Singulair] 10 mg tablet 10 mg PO DAILY Qty: 90 1RF docusate sodium 100 mg capsule 100 mg PO PRN levothyroxine 100 mcg capsule 112 mcg PO DAILY sumatriptan succinate [Imitrex] 100 mg tablet See Rx Instructions PO .COMPLEX Qty: 90 0RF Rx Instructions: take 1 tab at onset of headache; if no relief, may repeat 1 tab after at least 2 hrs; max = 2 tabs/24 hrs PO mupirocin 2 % ointment 1 applic topical BID 7 Days Qty: 22 0RF ciprofloxacin-dexamethasone [Ciprodex] 0.3-0.1 % drops,suspension 4 drp otic (ear) BID 15 Days Qty: 7.5 2RF Rx Instructions: Apply 4 drops into left ear canal twice daily. Let soak for 10 minutes diphenoxylate-atropine [Lomotil] 2.5-0.025 mg tablet 1 tab PO Q6H PRN (Reason: diarrhea) Qty: 20 0RF miscellaneous medical supply Misc 1 ea miscellaneous DAILY Qty: 1 0RF Rx Instructions: [facility] fluoxetine [Prozac] 20 mg capsule 20 mg PO DAILY Qty: 30 1RF buspirone 15 mg tablet 15 mg PO TID Qty: 90 1RF amoxicillin 875 mg tablet 875 mg PO BID 7 Days Qty: 14 0RF levocetirizine [Xyzal] 5 mg tablet 5 mg PO DAILY PRN (Reason: allergy symptoms) Qty: 60 0RF liothyronine 5 mcg tablet 5 mcg PO DAILY acetaminophen [Tylenol Extra Strength] 500 mg Tablet 1,000 mg PO PRN hydroxyzine pamoate 50 mg capsule 50 mg PO TID PRN (Reason: anxiety) Qty: 14 0RF triamcinolone acetonide 0.1 % ointment 1 applic topical BID PRN (Reason: Rash) Rx Instructions: Apply to affected area no more than 2 weeks per month. Not for face Lomotil 2.5-0.025 mg tablet 1 tab PO Q8H PRN (Reason: diarrhea) Qty: 10 0RF ondansetron 4 mg tablet,disintegrating 4 mg PO Q6H PRN (Reason: nausea and vomiting) Qty: 14 0RF metronidazole 500 mg tablet 500 mg PO TID Qty: 14 0RF Discharge Orders: Discharge ED (Routine); Ordered 04/14/23 Ordered By: Ash Burton Referrals: Savannah German FNP [Primary Care Provider] - Discharge Diet: Usual diet Discharge Activity: Increase activity as tolerated Patient Instructions: Allergies (ED) Activity Restrictions/Additional Instructions: Continue with [id number] allergy eyedrops. Avoid rubbing the eyes. Use acetaminophen or ibuprofen for pain. Follow-up with primary care for further evaluation. Return to ED for new concerns. Coding Level of Care Code ED Patient Registration Representative for Robyn Ruiz
== END 2023-04-14 23:38 | disposition home or self-care (01) ==
PROVIDERS: Emergency Provider Nurse Practitioner Family; PCP Nurse Practitioner Family
DX: H10.13 Acute atopic conjunctivitis, bilateral (principal); E11.9 Type 2 diabetes mellitus without complications; E78.5 Hyperlipidemia, unspecified; I10 Essential (primary) hypertension
CPT/HCPCS: 99282

== ENCOUNTER 2023-04-19 23:35 | Emergency (ER) | payer MEDICARE, MEDICAID, SELFPAY ==
[2023-04-19 23:37] VITALS: BP 136/82; PULSE 70; RESP 18; TEMP 36.7; O2SAT 96
--- NOTE | 2023-04-19 23:51 | ED_ITS ---
HPI - Ear Problem General: Chief complaint: Ear Stated complaint: Ear Pain\Left Time Seen by Provider: 04/19/23 23:44 Source: patient Mode of arrival: ambulatory Limitations: no limitations History of Present Illness: 53-year-old female states she had left ear pain for last 2 days states she had some slight bleeding out of the ear. She denies any fever states pain sharp in nature rates it a 3 out of 10. Denies any injuries. Associated symptoms: Reports ear or mastoid pain; Denies fever(s), headache(s) or neck pain Review of Systems Const: Denies: fever(s) Eyes: Denies: eye discharge ENMT: Reports: ear or mastoid pain Card: Denies: chest pain Resp: Denies: dyspnea GI: Denies: abdominal pain Musc: Denies: neck pain Skin/Breast: Denies: rash Neuro: Denies: headache(s) PFS ED PFSH: Medical History Acute serous otitis media of left ear Anxiety Borderline intellectual functioning Controlled type 2 diabetes mellitus, without long-term current use of insulin Depression Dizziness Dumping syndrome Dyslipidemia Enrolled in chronic care management Generalized anxiety disorder GERD (gastroesophageal reflux disease) Grief reaction Hypertension Hypothyroidism Major depressive disorder, recurrent, moderate Nausea & vomiting Nausea & vomiting Obesity BHARAT (obstructive sleep apnea) Psychiatric care Recurrent UTI Seizure disorder Tinnitus Urinary tract infection with hematuria Surgical History History of colonoscopy with polypectomy (~09/2018) History of esophagogastroduodenoscopy (EGD) (~09/2018) History of gastric bypass History of hysterectomy with oophorectomy History of laparoscopic cholecystectomy History of placement of ear tubes Family History Grandmother Cancer Father , at age 62 Lung disease Diabetes COPD (chronic obstructive pulmonary disease) Mother Rheumatic arteritis Depression Denies family history of Anesthesia complication Bleeding disorder Social History Smoking and tobacco status: never smoked Second hand smoke exposure: No Smoking risk assessment/counseling performed?: No Alcohol intake: never Desire information about alcohol rehabilitation?: No Counseling given: No Substance/Drug Use: never Desire information about substance/drug rehabilitation?: No Counseling given: No Adopted: No Caregiver/support person: Yes Lives independently: Yes Housing: House Marital status: Single Highest education level completed: High School Graduate service: No Current occupational status: disabled Current occupational exposures/hazards: No Pets and animals: Yes Sexually active: Yes Do you think of yourself as: Straight/Heterosexual Ania/Restorationist: None Special ania needs: No Agree to transfusion: Yes Financial difficulty paying for basics: Not Very Hard Physical Exam Const: COMMON NORMALS: no acute distress and patient oriented x3 HENMT: COMMON NORMALS: normocephalic and atraumatic HEAD & SCALP: normocephalic and atraumatic OTHER: Erythema left TM tympanostomy tube is in place Eye: COMMON NORMALS: conjunctivae normal CONJUNCTIVA: Yes conjunctivae normal Chest: COMMONS NORMALS: normal inspection of the chest Resp: COMMON NORMALS: normal respiratory effort Extremity: COMMON NORMALS: normal to inspection Neuro: COMMON NORMALS: patient oriented x3 Psych: COMMON NORMALS: mental status grossly normal Skin: COMMON NORMALS: no rashes or lesions noted GENERAL SKIN EXAM: no rashes or lesions noted Course Vital Signs: Vital signs: Vital Signs Temperature 98.1 F 04/19/23 23:37 Pulse Rate 70 04/19/23 23:37 Respiratory Rate 18 04/19/23 23:37 Blood Pressure 136/82 04/19/23 23:37 Pulse Oximetry 96 04/19/23 23:37 Oxygen Delivery Me thod Room Air 04/19/23 23:37 MDM - Ear Medical Decision Making Patient presents here with left ear pain has some erythema in her ear TM tube still in place mild infection we will start her on Keflex she is to follow-up with her ENT she does have some dried blood in her ear canal no signs of otitis externa Medical Records I reviewed the patient's medical records. Lab Data I reviewed the patient's lab results. Discharge Plan Discharge Patient Disposition: Home Clinical Impression: Acute serous otitis media of left ear Condition: Stable Prescriptions: New cephalexin 500 mg capsule 500 mg PO TID 7 Days Qty: 21 0RF No Action montelukast [Singulair] 10 mg tablet 10 mg PO DAILY Qty: 90 1RF docusate sodium 100 mg capsule 100 mg PO PRN levothyroxine 100 mcg capsule 112 mcg PO DAILY sumatriptan succinate [Imitrex] 100 mg tablet See Rx Instructions PO .COMPLEX Qty: 90 0RF Rx Instructions: take 1 tab at onset of headache; if no relief, may repeat 1 tab after at least 2 hrs; max = 2 tabs/24 hrs PO mupirocin 2 % ointment 1 applic topical BID 7 Days Qty: 22 0RF ciprofloxacin-dexamethasone [Ciprodex] 0.3-0.1 % drops,suspension 4 drp otic (ear) BID 15 Days Qty: 7.5 2RF Rx Instructions: Apply 4 drops into left ear canal twice daily. Let soak for 10 minutes diphenoxylate-atropine [Lomotil] 2.5-0.025 mg tablet 1 tab PO Q6H PRN (Reason: diarrhea) Qty: 20 0RF miscellaneous medical supply Misc 1 ea miscellaneous DAILY Qty: 1 0RF Rx Instructions: [facility] fluoxetine [Prozac] 20 mg capsule 20 mg PO DAILY Qty: 30 1RF buspirone 15 mg tablet 15 mg PO TID Qty: 90 1RF amoxicillin 875 mg tablet 875 mg PO BID 7 Days Qty: 14 0RF levocetirizine [Xyzal] 5 mg tablet 5 mg PO DAILY PRN (Reason: allergy symptoms) Qty: 60 0RF liothyronine 5 mcg tablet 5 mcg PO DAILY acetaminophen [Tylenol Extra Strength] 500 mg Tablet 1,000 mg PO PRN hydroxyzine pamoate 50 mg capsule 50 mg PO TID PRN (Reason: anxiety) Qty: 14 0RF triamcinolone acetonide 0.1 % ointment 1 applic topical BID PRN (Reason: Rash) Rx Instructions: Apply to affected area no more than 2 weeks per month. Not for face Lomotil 2.5-0.025 mg tablet 1 tab PO Q8H PRN (Reason: diarrhea) Qty: 10 0RF ondansetron 4 mg tablet,disintegrating 4 mg PO Q6H PRN (Reason: nausea and vomiting) Qty: 14 0RF metronidazole 500 mg tablet 500 mg PO TID Qty: 14 0RF Discharge Orders: Discharge ED (Routine); Ordered 04/19/23 Ordered By: Patricia Arroyo Referrals: Savannah German FNP [Primary Care Provider] - 1-3 days Discharge Diet: Advance as tolerated Discharge Activity: Resume usual activity Patient Instructions: Ear Infection (ED) Coding Level of Care Code ED Pediatric Clinical Dietician for Robyn Ruiz
== END 2023-04-19 23:59 | disposition home or self-care (01) ==
PROVIDERS: Emergency Provider Emergency Medicine; PCP Nurse Practitioner Family
DX: H65.02 Acute serous otitis media, left ear (principal)
CPT/HCPCS: 99283

== ENCOUNTER → 2023-04-28 11:10 | Outpatient (BNVA) | payer MEDICARE, OTHER, SELFPAY | PROVIDERS: PCP Nurse Practitioner Family; Visit Provider Nurse Practitioner Family | DX: R39.9 Unspecified symptoms and signs involving the genitourinary system (principal) | CPT/HCPCS: 81000 ==

== ENCOUNTER → 2023-07-15 10:23 | Outpatient (BNVA) | payer MEDICARE, MEDICAID, SELFPAY | PROVIDERS: PCP Nurse Practitioner Family; Visit Provider Nurse Practitioner | DX: F41.1 Generalized anxiety disorder (principal) | CPT/HCPCS: 80061; 83036 ==

== ENCOUNTER 2023-09-03 14:20 | Outpatient (CLI) | payer MEDICARE, MEDICAID, SELFPAY ==
[2023-07-21 16:23] VITALS: BP 138/89; BMI 47.0
--- NOTE | 2023-09-03 14:27 | XR_ITS ---
WS: [id number] Exam: XR lumbar spine 2-3V* [id number] Date/Time of Exam: 09/03/2023 2:44 PM Reason For Exam: CHRONIC BILATERAL LOW BACK PAIN W/O SCIATICA No prior exams. There is a low-grade compression fracture of the upper plate of L3 that is age indeterminant. This wa s not present on the abdominal CT scan performed 06/11/2022. No other fractures. Mild spondylosis. Disc spaces are relatively well-maintained. Posterior elements are intact. IMPRESSION: 1. Compression fracture of the upper plate of L3 with about 10% loss in vertebral height and no poste rior displacement. Fracture age is indeterminate. 2. Mild degenerative changes and spondylosis. No other sign of fracture. Recommendations: Further evaluation with MRI of the lumbar spine could be helpful for more detailed e valuation.
== END 2023-09-03 14:21 | disposition home or self-care (01) ==
PROVIDERS: PCP Nurse Practitioner Family; Visit Provider Nurse Practitioner Family
DX: M48.56XA Collapsed vertebra, not elsewhere classified, lumbar region, initial encounter for fracture (principal); M47.896 Other spondylosis, lumbar region; M54.50 Low back pain, unspecified; G89.29 Other chronic pain
CPT/HCPCS: 72100

== ENCOUNTER 2023-09-18 09:34 | Outpatient (CLI) | payer MEDICARE, MEDICAID, SELFPAY ==
[2023-07-21 16:23] VITALS: BP 138/89; BMI 47.0
--- NOTE | 2023-09-18 10:53 | P.DIET_ITS ---
Reason for Visit: 62466 - E66.01,R63.5 Person Interviewed: Patient Medical History, Labs and Background: Donald had bariatric surgery in february 2021, then lost 3 loved ones the next month. Although she initially got down to 258 lbs, she now is 298 lbs. Height: 5 ft 6 in Weight: 298 lb BMI: 48.2 kg/m2 UBW: Pt didn't have a UBW, but she wanted to get back down to 258 at least. IBW: 130 lbs Weight History: Pt stated she started gaining wt. after her Niece and her nieces 2 small children were killed. SHe also mentioned getting bored with what she had to eat and eating whatever she wanted. Concerns and Goals: Tonia doesn't want to put weight back on. Sleep Hygiene: She goes to bed when she wants and sleeps as long as her body tells her to unless her aide wakes her up. Physical Activity: Tonia endorsed a compression fracture in her back that limits her activity. GI Symptoms: Constipation and Diarrhea Feeding Issues: None Other Feeding Issues: Pt mentioned going between constipation and diarrhea, but couldn't clarify what precipitated it? Food Allergies and Sensitivities: When she drinks milk, Tonia says she vomits. 24 Hour Recall: Breakfast Time: Snack Time: Lunch Time: Cheese chowder + 4 poached eggs + 2 pc tst Snack Time: Dinner Time: Snack Time: 2 candy bars before bed Eating Out: Tonia mentioned eating at [employer] several times. Soda vs Milk vs Water: She has cut down to 1 small soda/day and tries to drink 64 ounces water/day still. Milk makes her vomit. Additional Comments: Tonia seemed to be SK[place] and had a hard time staying on track. We were able to list foods and meals she liked. It appears she makes protein drinks from water and protein powder - she wasn't interested in trying different kinds of milk. As we talked it was apparent she buys a lot of prepared breakfast foods, pizzas, and banquet meals. Recommendations: Assessment: Tonia has been dealing with stress and grief and it has contributed to her gaining weight back since her bypass surgery 2 years ago. From what I could tell she has an aide 2 days a week and stays with her Mom sometimes, but does her own shopping and cooking. But then she said she needs to learn to cook. The periodic mentions of frozen meals is probably most of her meals. But she doesn't want to put the weight back on so there is motivation. Diagnosis: Excessive energy intake r/t grief and lack of knowledge and planning for meals AEB wt gain of 50 lbs the past 2 year. Intervention: It was hard to talk with Tonia as she couldn't hear well and at times couldn't respond to questions. Since the goal was weight loss, we generated a list of high protein meals and snacks and I typed them out as we talked and gave it to her before she left. I also included my name, email, and phone number for follow up questions. Monitoring and Evaluation: I wrote down my name, email, and phone number for follow up questions on the sheet I gave to Tonia. Honestly I think compliance is unlikely. We discussed what she did before that helped her lose weight and as I listed foods and meals and snacks for her on the sheet I sent home with her, I was thinking of that. She wants to lose weight, but I question if she has the life skills to follow through. Coding Level of Care Code Nutrition/Individ/Init 45min
== END 2023-09-18 09:35 | disposition home or self-care (01) ==
LOC: DIET 09:36
PROVIDERS: PCP Nurse Practitioner Family; Visit Provider Nurse Practitioner Family
DX: Z71.3 Dietary counseling and surveillance (principal); Z98.84 Bariatric surgery status; F43.20 Adjustment disorder, unspecified; Z68.42 Body mass index [BMI] 45.0-49.9, adult; R63.5 Abnormal weight gain; Z01.89 Encounter for other specified special examinations
CPT/HCPCS: 97802

== ENCOUNTER 2023-09-23 08:17 | Outpatient (CLI) | payer MEDICARE, MEDICAID, SELFPAY ==
[2023-07-21 16:23] VITALS: BP 138/89; BMI 47.0
--- NOTE | 2023-09-23 08:43 | MM_ITS ---
WS: [id number] VIEWS: MLO and CC views both breasts. 3D digital tomosynthesis is also included in this exam. Comparison made with prior exam of 08/24/2020, 09/16/2022.. Findings: There was no sign of mass, architectural distortion or suspicious calcification in either breast. The breasts are almost entirely fatty Impression: MM/[place] [id number] BI-RADS: 1-Negative FOLLOW-UP: 1 Year Follow-up This mammogram was also analyzed by the Computer Aided Detection System R2 Imag e Form Block Maker.
== END 2023-09-23 08:18 | disposition home or self-care (01) ==
LOC: RAD 08:18
PROVIDERS: PCP Nurse Practitioner Family; Visit Provider Nurse Practitioner Family
DX: Z12.31 Encounter for screening mammogram for malignant neoplasm of breast (principal)
CPT/HCPCS: 77063; 77067

== ENCOUNTER 2023-12-12 08:42 | Emergency (ER) | payer MEDICARE, MEDICAID, SELFPAY ==
[2023-07-21 16:23] VITALS: BP 138/89; BMI 47.0
[2023-12-12 08:52] VITALS: BP 125/82; PULSE 72; RESP 18; TEMP 36.6; O2SAT 97
--- NOTE | 2023-12-12 09:19 | W.ED.GENADLT ---
Documented by User: Tomeka Rossi PA-C 12/12/23 11:12 HPI - General Adult General: Chief complaint: Ear Stated complaint: ear pains Time Seen by Provider: 12/12/23 08:51 Source: patient Mode of arrival: ambulatory Limitations: no limitations History of Present Illness: 53-year-old female presents to the ER today for several concerns. Patient states no one will listen to me, but this is my thyroid causing a problem! Patient reports for the last few weeks she has had fullness in her neck, intermittent sore throat, sometimes painful swallowing, weight gain, and cold intolerance. Patient also feels like her neck is enlarged near the thyroid. Patient reports she has an appointment January 08 with her kettle coordinator specialist but feels this needs addressed immediately. Patient reports she has not seen her PCP in the last few days. Patient reports she is currently being treated for an ear issue with antibiotics. The left ear was unable to be visualized when she saw the doctor however she has been taking medications and denies any ear pain at this time. Patient denies any heart palpitations. Denies any chest pain or shortness of breath. Review of Systems General: Reports: 10 or more systems reviewed and unremarkable except in HPI and below PFSH ED PFSH: Medical History Major depressive disorder, recurrent, moderate Recurrent UTI Urinary tract infection with hematuria Grief reaction Nausea & vomiting Dumping syndrome Dizziness Nausea & vomiting Psychiatric care Tinnitus Borderline intellectual functioning Generalized anxiety disorder Acute serous otitis media of left ear Controlled type 2 diabetes mellitus, without long-term current use of insulin Enrolled in chronic care management Seizure disorder Depression Hypertension Dyslipidemia Obesity Anxiety BHARAT (obstructive sleep apnea) Hypothyroidism GERD (gastroesophageal reflux disease) Surgical History History of placement of ear tubes History of gastric bypass 2020- History of colonoscopy with polypectomy (~09/2018) History of laparoscopic cholecystectomy History of esophagogastroduodenoscopy (EGD) (~09/2018) History of hysterectomy with oophorectomy Family History Grandmother Cancer Father , at age 62 Lung disease Diabetes COPD (chronic obstructive pulmonary disease) Mother Rheumatic arteritis Depression Denies family history of Anesthesia complication Bleeding disorder Social History Smoking and tobacco/nicotine status: never used tobacco/nicotine Second hand smoke exposure: No Alcohol intake: never Substance/Drug Use: never Adopted: No Caregiver/support person: Yes (nurse comes in and sets up her medications) Lives independently: Yes Household members: none Housing: Apartment Marital status: Single Number of children: 0 Highest education level completed: High School Graduate service: No Current occupational status: disabled Current occupational exposures/hazards: No Pets and animals: Yes Pets & animals: cat(s) Leisure activites: art Sexually active: No Do you think of yourself as: Straight/Heterosexual Current gender identity: Female Ania/Buddhist: None Special ania needs: No Agree to transfusion: Yes Physical Exam Const: COMMON NORMALS: no acute distress, average body habitus, patient oriented x3 and alert OTHER: unkempt HENMT: COMMON NORMALS: normocephalic, atraumatic, TM's normal bilaterally, Normal external nose present and Normal nasal mucous membranes and turbinates present HEAD & SCALP: normocephalic and atraumatic NOSE: Normal external nose present and Normal nasal mucous membranes and turbinates present EXTERNAL AUDITORY CANAL: Abnormal EAC present EAC laterality: right Details: edema TYMPANIC MEMBRANE: TM's normal bilaterally MOUTH: malodorous breath THROAT: posterior oropharynx abnormal (Petechiae noted to posterior pharynx and posterior roof of the mouth) Eye: COMMON NORMALS: Equal, round and reactive pupils present, EOMs intact bilaterally and conjunctivae normal CONJUNCTIVA: Yes conjunctivae normal PUPIL: Yes Equal, round and reactive pupils present Neck/C-Spine: COMMON NORMALS: full ROM, no lymphadenopathy, supple and Thyroid normal THYROID: Thyroid normal, symmetrical, not diffusely enlarged, no masses, no nodules and nontender Resp: COMMON NORMALS: normal respiratory effort and No retractions Cardio: COMMON NORMALS: regular rate, regular rhythm and No murmurs present (Cardio) RATE: regular rate RHYTHM: regular rhythm GI: OTHER: obese Extremity: COMMON NORMALS: normal to inspection and full ROM Neuro: COMMON NORMALS: patient oriented x3 SENSORIUM/ORIENTATION: Yes alert Psych: OTHER: brash, appears agitated but easily able to redirect Skin: COMMON NORMALS: no rashes or lesions noted GENERAL SKIN EXAM: no rashes or lesions noted Course ED course: Patient presents to the ER with concerns for thyroid problems. Patient does report an appointment with her specialist January 08. She has a known history of thyroid disorder and takes levothyroxine. Last TSH was checked 4 weeks ago and as far she knows it was normal. Patient endorses enlargement of the neck however on exam nothing is palpated or visualized. On physical exam I did note patient had some petechiae of the posterior pharynx and complains of intermittent sore throat so we will go ahead and strep swab patient. I will get a CBC at this time. I did discuss with patient that further workup for her thyroid likely needs to come through her PCP or specialist. Vital Signs: Vital signs: Vital Signs Temperature 97.9 F 12/12/23 11:16 Pulse Rate 72 12/12/23 11:16 Respiratory Rate 18 12/12/23 11:16 Blood Pressure 125/82 12/12/23 11:16 Pulse Oximetry 97 12/12/23 11:16 Oxygen Delivery Me thod Room Air 12/12/23 08:52 MDM - General Adult Medical Decision Making CBC does not indicate any type of acute infection. Rapid strep is negative. Patient's thyroid was checked less than 4 weeks ago and medication was not adjusted by PCP so we will not recheck at this time. Patient was notified of results and became agitated saying something is wrong with her and now she is saying she is concerned because she sleeps all the time. When I went into the room to give patient results she was resting comfortably and in no acute distress. I discussed with patient that everything we checked in the ER appears normal however I am not discounting the fact that she feels like something is wrong. I would recommend she talk to her primary care about a thyroid ultrasound if she thinks that her thyroid. She does have a follow-up with a specialist on January 08. If further workup on fatigue and drowsiness can be done by patient's PCP. Lab Data 12/12/23 10:06 Laboratory Results WBC 6.38 10^3/uL (3.29-11.43) 12/12/23 10:06 RBC 4.58 10^6/uL (3.85-5.65) 12/12/23 10:06 Hgb 13.50 g/dL (11.27-16.99) 12/12/23 10:06 Hct 40.4 % (36-47) 12/12/23 10:06 MCV 88.2 fl (85-98) 12/12/23 10:06 MCH 29.5 pg (27-33) 12/12/23 10:06 MCHC 33.4 g/dL (30-55) 12/12/23 10:06 RDW 12.7 % (12.1-15.1) 12/12/23 10:06 Plt Count 206 10^3/cmm (157-399) 12/12/23 10:06 MPV 9.2 fL (7.4-10.4) 12/12/23 10:06 Neut % (Auto) 62.0 % 12/12/23 10:06 Lymph % (Auto) 28.1 % 12/12/23 10:06 [place] % (Auto) 7.5 % 12/12/23 10:06 Eos % (Auto) 1.4 % 12/12/23 10:06 Baso % (Auto) 0.8 % 12/12/23 10:06 Neut # (Auto) 3.96 10^3/uL (1.8-7.7) 12/12/23 10:06 Lymph # (Auto) 1.8 10^3/uL (0.8-4.8) 12/12/23 10:06 [place] # (Auto) 0.5 10^3/uL (0.2-0.9) 12/12/23 10:06 Eos # (Auto) 0.1 10^3/uL (0.0-0.8) 12/12/23 10:06 Baso # (Auto) 0.1 10^3/uL (0.0-0.1) 12/12/23 10:06 Nucleated RBC % (auto) 0 % 12/12/23 10:06 Nucleated RBCs # 0.0 /100WBC 12/12/23 10:06 Group A Strep Rapid Negative (Negative) 12/12/23 09:31 No radiology studies performed this visit Critical Care Time Critical Care Time: Critical Care Time: No Discharge Plan Discharge Patient Disposition: Home Clinical Impression: Pharyngitis Qualifiers: Pharyngitis/tonsillitis etiology: unspecified etiology Qualified Code(s): J02.9 - Acute pharyngitis, unspecified Hypothyroidism Qualifiers: Hypothyroidism type: unspecified Qualified Code(s): E03.9 - Hypothyroidism, unspecified Condition: Stable Prescriptions: No Action docusate sodium 100 mg capsule 100 mg PO BID PRN (Reason: Constipation) fluoxetine [Prozac] 20 mg capsule 20 mg PO DAILY Qty: 30 1RF Vicks DayQuil Cough 5 mg/5 mL syrup 10 mg PO Q4H PRN (Reason: COUGH AND CONGESTION) levocetirizine [Xyzal] 5 mg tablet 5 mg PO DAILY PRN (Reason: allergy symptoms) Qty: 60 0RF amoxicillin 500 mg tablet 1,000 mg PO BID 10 Days Qty: 40 0RF sumatriptan succinate 100 mg tablet See Rx Instructions .ROUTE .COMPLEX Qty: 9 0RF Dose Instruction: TAKE 1 TABLET BY MOUTH AT THE ONSET OF HEADACHE. IF NO RELIEF MAY REPEAT 1 TAB AFTER AT LEAST 2 HOURS. MAX OF 2 TABS IN 24 HOURS Rx Instructions: TAKE 1 TABLET BY MOUTH AT THE ONSET OF HEADACHE. IF NO RELIEF MAY REPEAT 1 TAB AFTER AT LEAST 2 HOURS. MAX OF 2 TABS IN 24 HOURS liothyronine 5 mcg tablet 5 mcg PO DAILY acetaminophen [Tylenol Extra Strength] 500 mg Tablet 1,000 mg PO Q6H PRN (Reason: Pain) oxybutynin chloride 10 mg tablet extended release 24hr 10 mg PO DAILY ciprofloxacin-dexamethasone 0.3-0.1 % drops,suspension 1 drp otic (ear) BID levothyroxine 112 mcg tablet 112 mcg PO DAILY buspirone 15 mg tablet 15 mg PO BID Discharge Orders: Discharge ED (Routine); Ordered 12/12/23 Ordered By: Tomeka Rossi Referrals: Savannah German FNP [Primary Care Provider] - Discharge Diet: Usual diet Discharge Activity: Resume usual activity Patient Instructions: Opioid Safety, Pain Management Activity Restrictions/Additional Instructions: Follow-up with PCP to discuss additional imaging on the thyroid. Warm salt water gargles recommended for sore throat. Coding Level of Care Code ED Hollow Handle Knife Assembler for Chg Fwd Documented by User: Madan Hatfield DO 12/12/23 17:20 HPI - General Adult General: Chief complaint: Ear Stated complaint: ear pains Time Seen by Provider: 12/12/23 08:51 PFSH ED PFSH: Medical History Major depressive disorder, recurrent, moderate Recurrent UTI Urinary tract infection with hematuria Grief reaction Nausea & vomiting Dumping syndrome Dizziness Nausea & vomiting Psychiatric care Tinnitus Borderline intellectual functioning Generalized anxiety disorder Acute serous otitis media of left ear Controlled type 2 diabetes mellitus, without long-term current use of insulin Enrolled in chronic care management Seizure disorder Depression Hypertension Dyslipidemia Obesity Anxiety BHARAT (obstructive sleep apnea) Hypothyroidism GERD (gastroesophageal reflux disease) Surgical History History of placement of ear tubes History of gastric bypass 2020- - History of colonoscopy with polypectomy (~09/2018) History of laparoscopic cholecystectomy History of esophagogastroduodenoscopy (EGD) (~09/2018) History of hysterectomy with oophorectomy Family History Grandmother Cancer Father , at age 62 Lung disease Diabetes COPD (chronic obstructive pulmonary disease) Mother Rheumatic arteritis Depression Denies family history of Anesthesia complication Bleeding disorder Social History Smoking and tobacco/nicotine status: never used tobacco/nicotine Second hand smoke exposure: No Alcohol intake: never Substance/Drug Use: never Adopted: No Caregiver/support person: Yes (nurse comes in and sets up her medications) Lives independently: Yes Household members: none Housing: Apartment Marital status: Single Number of children: 0 Highest education level completed: High School Graduate service: No Current occupational status: disabled Current occupational exposures/hazards: No Pets and animals: Yes Pets & animals: cat(s) Leisure activites: art Sexually active: No Do you think of yourself as: Straight/Heterosexual Current gender identity: Female Ania/Buddhist: None Special ania needs: No Agree to transfusion: Yes Course Vital Signs: Vital signs: Vital Signs Temperature 97.9 F 12/12/23 11:16 Pulse Rate 72 12/12/23 11:16 Respiratory Rate 18 12/12/23 11:16 Blood Pressure 125/82 12/12/23 11:16 Pulse Oximetry 97 12/12/23 11:16 Oxygen Delivery Me thod Room Air 12/12/23 08:52 MDM - General Adult Medical Decision Making CBC does not indicate any type of acute infection. Rapid strep is negative. Patient's thyroid was checked less than 4 weeks ago and medication was not adjusted by PCP so we will not recheck at this time. Patient was notified of results and became agitated saying something is wrong with her and now she is saying she is concerned because she sleeps all the time. When I went into the room to give patient results she was resting comfortably and in no acute distress. I discussed with patient that everything we checked in the ER appears normal however I am not discounting the fact that she feels like something is wrong. I would recommend she talk to her primary care about a thyroid ultrasound if she thinks that her thyroid. She does have a follow-up with a specialist on January 08. If further workup on fatigue and drowsiness can be done by patient's PCP. Chart reviewed and patient discussed with midlevel. Agree with assessment and plan. Lab Data 12/12/23 10:06 Laboratory Results WBC 6.38 10^3/uL (3.29-11.43) 12/12/23 10:06 RBC 4.58 10^6/uL (3.85-5.65) 12/12/23 10:06 Hgb 13.50 g/dL (11.27-16.99) 12/12/23 10:06 Hct 40.4 % (36-47) 12/12/23 10:06 MCV 88.2 fl (85-98) 12/12/23 10:06 MCH 29.5 pg (27-33) 12/12/23 10:06 MCHC 33.4 g/dL (30-55) 12/12/23 10:06 RDW 12.7 % (12.1-15.1) 12/12/23 10:06 Plt Count 206 10^3/cmm (157-399) 12/12/23 10:06 MPV 9.2 fL (7.4-10.4) 12/12/23 10:06 Neut % (Auto) 62.0 % 12/12/23 10:06 Lymph % (Auto) 28.1 % 12/12/23 10:06 [place] % (Auto) 7.5 % 12/12/23 10:06 Eos % (Auto) 1.4 % 12/12/23 10:06 Baso % (Auto) 0.8 % 12/12/23 10:06 Neut # (Auto) 3.96 10^3/uL (1.8-7.7) 12/12/23 10:06 Lymph # (Auto) 1.8 10^3/uL (0.8-4.8) 12/12/23 10:06 [place] # (Auto) 0.5 10^3/uL (0.2-0.9) 12/12/23 10:06 Eos # (Auto) 0.1 10^3/uL (0.0-0.8) 12/12/23 10:06 Baso # (Auto) 0.1 10^3/uL (0.0-0.1) 12/12/23 10:06 Nucleated RBC % (auto) 0 % 12/12/23 10:06 Nucleated RBCs # 0.0 /100WBC 12/12/23 10:06 Group A Strep Rapid Negative (Negative) 12/12/23 09:31 Discharge Plan Discharge Patient Disposition: Home Clinical Impression: Pharyngitis Qualifiers: Pharyngitis/tonsillitis etiology: unspecified etiology Qualified Code(s): J02.9 - Acute pharyngitis, unspecified Hypothyroidism Qualifiers: Hypothyroidism type: unspecified Qualified Code(s): E03.9 - Hypothyroidism, unspecified Condition: Stable Prescriptions: No Action docusate sodium 100 mg capsule 100 mg PO BID PRN (Reason: Constipation) fluoxetine [Prozac] 20 mg capsule 20 mg PO DAILY Qty: 30 1RF Vicks DayQuil Cough 5 mg/5 mL syrup 10 mg PO Q4H PRN (Reason: COUGH AND CONGESTION) levocetirizine [Xyzal] 5 mg tablet 5 mg PO DAILY PRN (Reason: allergy symptoms) Qty: 60 0RF amoxicillin 500 mg tablet 1,000 mg PO BID 10 Days Qty: 40 0RF sumatriptan succinate 100 mg tablet See Rx Instructions .ROUTE .COMPLEX Qty: 9 0RF Dose Instruction: TAKE 1 TABLET BY MOUTH AT THE ONSET OF HEADACHE. IF NO RELIEF MAY REPEAT 1 TAB AFTER AT LEAST 2 HOURS. MAX OF 2 TABS IN 24 HOURS Rx Instructions: TAKE 1 TABLET BY MOUTH AT THE ONSET OF HEADACHE. IF NO RELIEF MAY REPEAT 1 TAB AFTER AT LEAST 2 HOURS. MAX OF 2 TABS IN 24 HOURS liothyronine 5 mcg tablet 5 mcg PO DAILY acetaminophen [Tylenol Extra Strength] 500 mg Tablet 1,000 mg PO Q6H PRN (Reason: Pain) oxybutynin chloride 10 mg tablet extended release 24hr 10 mg PO DAILY ciprofloxacin-dexamethasone 0.3-0.1 % drops,suspension 1 drp otic (ear) BID levothyroxine 112 mcg tablet 112 mcg PO DAILY buspirone 15 mg tablet 15 mg PO BID Discharge Orders: Discharge ED (Routine); Ordered 12/12/23 Ordered By: Tomeka Rossi Referrals: Savannah German FNP [Primary Care Provider] - Discharge Diet: Usual diet Discharge Activity: Resume usual activity Patient Instructions: Opioid Safety, Pain Management Activity Restrictions/Additional Instructions: Follow-up with PCP to discuss additional imaging on the thyroid. Warm salt water gargles recommended for sore throat. Coding Level of Care Code ED Hollow Handle Knife Assembler for Robyn Ruiz
[2023-12-12 10:44] LABS: Rapid Strep A Test Negative (Negative)
--- NOTE | 2023-12-12 10:44 | PC.PHAR ---
Addendum entered by Ruthie Umanzor 12/12/23 10:50: PT STATES HASN'T TAKEN SINCE FRIDAY DUE TO THROWING UP. Original Note: PT STATES DOSE CHANGE ON BUSPIRONE 15 MG FROM 3 TIMES DAILY TO TWICE DAILY. NO LONGER TAKING HYDROXYZINE PAMOATE 50MG, SINGULAIR 20MG, MUPIROCIN 2% OINT, ONDANSETRON 4 OR 8MG
[2023-12-12 10:47] LABS: Basophils # 0.1 10^3/uL (0.0-0.1); Basophils % 0.8 %; Eosinophils # 0.1 10^3/uL (0.0-0.8); Eosinophils % 1.4 %; Hematocrit 40.4 % (36-47); Lymphocytes # 1.8 10^3/uL (0.8-4.8); Lymphocytes % 28.1 %; Mean Corpuscular HGB Conc 33.4 g/dL (30-55); Mean Corpuscular Hemoglobin 29.5 pg (27-33); Mean Corpuscular Volume 88.2 fl (85-98); Mean Platelet Volume 9.2 fL (7.4-10.4); Monocytes # 0.5 10^3/uL (0.2-0.9); Monocytes % 7.5 %; Neutrophils # 3.96 10^3/uL (1.8-7.7); Nucleated Red Blood Cells % 0 %; Platelet Count 206 10^3/cmm (157-399); Red Blood Count 4.58 10^6/uL (3.85-5.65); Red Cell Distribution Width 12.7 % (12.1-15.1); White Blood Count 6.38 10^3/uL (3.29-11.43)
[2023-12-12 11:16] VITALS: BP 125/82; PULSE 72; RESP 18; TEMP 36.6; O2SAT 97
== END 2023-12-12 11:17 | disposition home or self-care (01) ==
PROVIDERS: Emergency Provider Physician Assistant; PCP Nurse Practitioner Family
DX: J02.9 Acute pharyngitis, unspecified (principal); E03.9 Hypothyroidism, unspecified; E11.9 Type 2 diabetes mellitus without complications; I10 Essential (primary) hypertension; E78.5 Hyperlipidemia, unspecified
CPT/HCPCS: 36415; 85025; 87081; 87880; 99283

== ENCOUNTER 2024-03-02 12:02 | Outpatient (RCR) | payer MEDICARE, MEDICAID, SELFPAY ==
[2023-07-21 16:23] VITALS: BP 138/89; BMI 47.0
== END 2024-03-09 23:59 | disposition home or self-care (01) ==
LOC: SPT 12:02
PROVIDERS: PCP Nurse Practitioner Family; Visit Provider Anesthesiology Pain Medicine
DX: M54.51 Vertebrogenic low back pain (principal)
CPT/HCPCS: 97110; 97161

== ENCOUNTER 2024-03-22 11:57 | Emergency (ER) | payer MEDICARE, MEDICAID, SELFPAY ==
[2023-07-21 16:23] VITALS: BP 138/89; BMI 47.0
[2024-03-22 12:23] VITALS: BP 127/86; PULSE 81; RESP 17; TEMP 36.7; O2SAT 97
--- NOTE | 2024-03-22 13:25 | W.ED.LOWEXIN ---
HPI - Extremity Injury (Lower) General: Chief Complaint: Extremity Problem,Nontraumatic Stated Complaint: left leg pain Time Seen by Provider: 03/22/24 13:14 Source: patient Mode of arrival: ambulatory Limitations: no limitations History of Present Illness: Patient is a 53-year-old female presents to ED today with a complaint of left lower leg pain that began 2 days ago. Patient states she was at a wedding and had gotten up from a seated position when went to take a step and felt something pull to her left lower leg. Patient states she has had pain since mainly when ambulating. She has not noticed any redness or swelling or warmth to the area. No bruising. Patient is ambulatory here with her cane. complaint: leg injury Onset (ago): day(s) Place: other (wedding) Severity: moderate Relieving factors: immobilization Exacerbating factors: weight bearing and movement Associated symptoms: Reports no associated symptoms Other symptoms: none Review of Systems Card: Denies: swelling of feet/ankles Resp: Denies: dyspnea Musc: Reports: extremity pain (L lower leg); Denies: neck pain, back pain, extremity swelling, joint pain or joint swelling Neuro: Reports: difficulty walking; Denies: numbness in extremities or sensory changes PFS ED PFSH: Medical History Major depressive disorder, recurrent, moderate Recurrent UTI Urinary tract infection with hematuria Grief reaction Nausea & vomiting Dumping syndrome Dizziness Nausea & vomiting Psychiatric care Tinnitus Borderline intellectual functioning Generalized anxiety disorder Acute serous otitis media of left ear Controlled type 2 diabetes mellitus, without long-term current use of insulin Enrolled in chronic care management Seizure disorder Depression Hypertension Dyslipidemia Obesity Anxiety BHARAT (obstructive sleep apnea) Hypothyroidism GERD (gastroesophageal reflux disease) Surgical History History of placement of ear tubes History of gastric bypass 2020- History of colonoscopy with polypectomy (~09/2018) History of laparoscopic cholecystectomy History of esophagogastroduodenoscopy (EGD) (~09/2018) History of hysterectomy with oophorectomy Family History Grandmother Cancer Father , at age 62 Lung disease Diabetes COPD (chronic obstructive pulmonary disease) Mother Rheumatic arteritis Depression Denies family history of Anesthesia complication Bleeding disorder Social History Smoking and tobacco/nicotine status: never used tobacco/nicotine Second hand smoke exposure: No Alcohol intake: never Substance/Drug Use: never Adopted: No Caregiver/support person: Yes (nurse comes in and sets up her medications) Lives independently: Yes Household members: none Housing: Apartment Marital status: Single Number of children: 0 Highest education level completed: High School Graduate service: No Current occupational status: disabled Current occupational exposures/hazards: No Pets and animals: Yes Pets & animals: cat(s) Leisure activites: art Sexually active: No Do you think of yourself as: Straight/Heterosexual Current gender identity: Female Ania/Restorationism: None Special ania needs: No Agree to transfusion: Yes Physical Exam Const: COMMON NORMALS: no acute distress, patient oriented x3 and alert GENERAL APPEARANCE: cooperative NUTRITIONAL APPEARANCE: obese morbidly obese (BMI over 52) Resp: COMMON NORMALS: normal respiratory effort Cardio: COMMON NORMALS: regular rate and regular rhythm RATE: regular rate RHYTHM: regular rhythm Extremity: COMMON NORMALS: normal to inspection, full ROM, capillary refill normal and no joint enlargement GENERAL: Yes normal exam except as noted LEFT LOWER EXTREMITY: Yes lower leg OTHER: mild pain L lower posterior leg; no obvious swelling noted but limited due to morbid obesity status; no ecchymosis; normal flexion/extension of ankle; no bony tenderness present; NV intact Neuro: COMMON NORMALS: patient oriented x3, moves all extremities, no focal motor deficits and no sensory deficits noted SENSORIUM/ORIENTATION: Yes alert Skin: COMMON NORMALS: no rashes or lesions noted GENERAL SKIN EXAM: no rashes or lesions noted Course Vital Signs: Vital signs: Vital Signs Temperature 98.0 F 03/22/24 12:23 Pulse Rate 81 03/22/24 12:23 Respiratory Rate 17 03/22/24 12:23 Blood Pressure 127/86 03/22/24 12:23 Pulse Oximetry 97 03/22/24 12:23 Oxygen Delivery Me thod Room Air 03/22/24 12:23 MDM - Extremity Injury (Lower) Medical Decision Making Patient is a 53-year-old female here for left lower leg pain after she felt something pull while she was walking. She does not require any type of emergent imaging at this time. XRs would be low yield. Physical exam is not consistent with any type of significant muscle rupture/tear. She is requesting a splint to help her walk with her walker as she is not a candidate for crutches given her morbid obesity. This will be provided. Recommend ice, elevation, NSAIDs, follow-up with primary care in 1 to 2 weeks if symptoms do not seem to be improving. Medical Records I reviewed the patient's medical records. No radiology studies performed this visit Discharge Plan Discharge Patient Disposition: Home Clinical Impression: Strain of left calf muscle Condition: Stable Prescriptions: No Action docusate sodium 100 mg capsule 100 mg PO BID PRN (Reason: Constipation) ciprofloxacin-dexamethasone 0.3-0.1 % drops,suspension 4 drp otic (ear) BID 360 Days Qty: 7.5 12RF Rx Instructions: Apply 4 drops to each ear. After application let soak for 5 minutes. Vicks DayQuil Cough 5 mg/5 mL syrup 10 mg PO Q4H PRN (Reason: COUGH AND CONGESTION) levocetirizine [Xyzal] 5 mg tablet 5 mg PO DAILY PRN (Reason: allergy symptoms) Qty: 60 0RF amoxicillin 500 mg tablet 1,000 mg PO BID 10 Days Qty: 40 0RF fluoxetine [Prozac] 20 mg capsule 20 mg PO DAILY Qty: 30 1RF sumatriptan succinate 100 mg tablet See Rx Instructions .ROUTE .COMPLEX Qty: 9 0RF Dose Instruction: TAKE 1 TABLET BY MOUTH AT THE ONSET OF HEADACHE. IF NO RELIEF MAY REPEAT 1 TAB AFTER AT LEAST 2 HOURS. MAX OF 2 TABS IN 24 HOURS Rx Instructions: TAKE 1 TABLET BY MOUTH AT THE ONSET OF HEADACHE. IF NO RELIEF MAY REPEAT 1 TAB AFTER AT LEAST 2 HOURS. MAX OF 2 TABS IN 24 HOURS liothyronine 5 mcg tablet 5 mcg PO DAILY acetaminophen [Tylenol Extra Strength] 500 mg Tablet 1,000 mg PO Q6H PRN (Reason: Pain) oxybutynin chloride 10 mg tablet extended release 24hr 10 mg PO DAILY ciprofloxacin-dexamethasone 0.3-0.1 % drops,suspension 1 drp otic (ear) BID levothyroxine 112 mcg tablet 112 mcg PO DAILY buspirone 15 mg tablet 15 mg PO BID Discharge Orders: Discharge ED (Routine); Ordered 05/13/24 Ordered By: Jacqueline Chan Referrals: Savannah German FNP [Primary Care Provider] - Patient Instructions: Muscle Strain (DC) Coding Level of Care Code ED Feltmaker And Weigher for Robyn Riuz
== END 2024-03-22 14:11 | disposition home or self-care (01) ==
PROVIDERS: Emergency Provider Physician Assistant; PCP Nurse Practitioner Family
DX: S86.112A Strain of other muscle(s) and tendon(s) of posterior muscle group at lower leg level, left leg, initial encounter (principal); E11.9 Type 2 diabetes mellitus without complications; I10 Essential (primary) hypertension; E78.5 Hyperlipidemia, unspecified; X50.9XXA Other and unspecified overexertion or strenuous movements or postures, initial encounter
CPT/HCPCS: 29515; 99282

== ENCOUNTER → 2024-03-25 15:07 | Outpatient (BNVA) | payer MEDICARE, MEDICAID, SELFPAY ==
[2023-07-21 16:23] VITALS: BP 138/89; BMI 47.0
== END ==
PROVIDERS: PCP Nurse Practitioner Family; Visit Provider Otolaryngology
DX: H66.006 Acute suppurative otitis media without spontaneous rupture of ear drum, recurrent, bilateral (principal)
CPT/HCPCS: 99213

== ENCOUNTER → 2024-04-05 17:20 | Outpatient (BNVA) | payer MEDICARE, MEDICAID, SELFPAY ==
[2023-07-21 16:23] VITALS: BP 138/89; BMI 47.0
== END ==
PROVIDERS: PCP Nurse Practitioner Family; Visit Provider Registered Nurse Neonatal Intensive Care
DX: N89.8 Other specified noninflammatory disorders of vagina (principal)
CPT/HCPCS: 81000; 87086

== ENCOUNTER 2024-05-10 18:53 | Emergency (ER) | payer MEDICARE, MEDICAID, SELFPAY ==
[2023-07-21 16:23] VITALS: BP 138/89; BMI 47.0
[2024-05-10 18:58] VITALS: BP 127/64; PULSE 90; RESP 18; TEMP 37.1; O2SAT 96
[2024-05-10 19:42] VITALS: BP 127/64; PULSE 90; RESP 18; TEMP 37.1; O2SAT 96
--- NOTE | 2024-05-10 20:09 | ED_ITS ---
HPI - Ear Problem General: Chief complaint: Ear Stated complaint: right ear pain jabbing with hearing aid Time Seen by Provider: 05/10/24 19:05 Source: patient Mode of arrival: ambulatory Limitations: no limitations History of Present Illness: Patient is a 54-year-old female presenting to the emergency department complaining of bilateral ear pain past few days. Patient has tubes in place at this time due to recurrent ear infections, states that she is having increased pain without drainage. No fevers to report. Patient is very hard of hearing and she does have history of hearing impairment. Has not taken anything for her symptoms. States that her current ENT recently left and she is looking for new ENT. No other symptoms or concerning history to report at this time. MD Complaint: ear pain Location: bilateral Duration: constant Severity: moderate Relieving factors: nothing Discharge from ear: no Associated symptoms: Reports no associated symptoms and ear or mastoid pain; Denies fever(s), headache(s) or neck pain Treatment prior to arrival: none Review of Systems General: Reports: 10 or more systems reviewed and unremarkable except in HPI and below Const: Denies: fever(s), chills or fatigue Eyes: Denies: change in vision ENMT: Reports: ear or mastoid pain; Denies: throat pain or nasal discharge Card: Denies: chest pain, palpitations, swelling of feet/ankles or lightheadedness Resp: Denies: dyspnea, productive cough or wheezing GI: Denies: abdominal pain, nausea, vomiting, diarrhea or constipation : Denies: flank pain, difficulty voiding, dysuria or urinary frequency Musc: Denies: neck pain, back pain or joint pain Skin/Breast: Denies: rash Neuro: Denies: headache(s), numbness in extremities or weakness in extremities PFS ED PFSH: Medical History Major depressive disorder, recurrent, moderate Recurrent UTI Urinary tract infection with hematuria Grief reaction Nausea & vomiting Dumping syndrome Dizziness Nausea & vomiting Psychiatric care Tinnitus Borderline intellectual functioning Generalized anxiety disorder Acute serous otitis media of left ear Controlled type 2 diabetes mellitus, without long-term current use of insulin Enrolled in chronic care management Seizure disorder Depression Hypertension Dyslipidemia Obesity Anxiety BHARAT (obstructive sleep apnea) Hypothyroidism GERD (gastroesophageal reflux disease) Surgical History History of placement of ear tubes History of gastric bypass History of colonoscopy with polypectomy (~09/2018) History of laparoscopic cholecystectomy History of esophagogastroduodenoscopy (EGD) (~09/2018) History of hysterectomy with oophorectomy Family History Grandmother Cancer Father , at age 62 Lung disease Diabetes COPD (chronic obstructive pulmonary disease) Mother Rheumatic arteritis Depression Denies family history of Anesthesia complication Bleeding disorder Social History Smoking and tobacco/nicotine status: never used tobacco/nicotine Second hand smoke exposure: No Alcohol intake: never Substance/Drug Use: never Adopted: No Caregiver/support person: Yes (nurse comes in and sets up her medications) Lives independently: Yes Household members: none Housing: Apartment Marital status: Single Number of children: 0 Highest education level completed: High School Graduate service: No Current occupational status: disabled Current occupational exposures/hazards: No Pets and animals: Yes Pets & animals: cat(s) Leisure activites: art Sexually active: No Do you think of yourself as: Straight/Heterosexual Current gender identity: Female Ania/Druze: None Special ania needs: No Agree to transfusion: Yes Physical Exam Const: COMMON NORMALS: no acute distress and healthy appearing GENERAL APPEARANCE: cooperative, comfortable and well developed HENMT: COMMON NORMALS: normocephalic, atraumatic, hearing grossly normal bilaterally, external ears normal, EAC's normal, Normal external nose present and Normal nasal mucous membranes and turbinates present HEAD & SCALP: normal to inspection, normocephalic and atraumatic FACE & SINUS: normal facial exam and sinuses nontender NOSE: Normal external nose present, Normal nares present, No nasal polyps present and Normal nasal mucous membranes and turbinates present EXTERNAL EAR: Yes external ears normal EXTERNAL AUDITORY CANAL: EAC's normal TYMPANIC MEMBRANE: TM abnormal TM laterality: bilateral erythematous MOUTH: Normal oral and palatal mucosa present THROAT: posterior oropharynx normal and tonsils normal OTHER: Chronically hard of hearing, bilateral tympanostomy tubes in place Eye: COMMON NORMALS: EOMs intact bilaterally, conjunctivae normal and normal visual hall by confrontation GENERAL EYE: appearance normal, both eyes and all related structures CONJUNCTIVA: Yes conjunctivae normal Neck/C-Spine: COMMON NORMALS: full ROM, no lymphadenopathy, supple and no meningeal signs GENERAL: Yes normal visual inspection Chest: COMMONS NORMALS: normal inspection of the chest Resp: COMMON NORMALS: normal respiratory effort and clear to auscultation bilaterally EFFORT & INSPECTION: Yes able to speak in complete sentences AUSCULTATION: clear to auscultation bilaterally Cardio: COMMON NORMALS: regular rate, regular rhythm, S1 normal heart sound present and S2 normal heart sound present RATE: regular rate RHYTHM: reg ular rhythm HEART SOUNDS: S1 normal heart sound present, S2 normal heart sound present, no gallops, no murmurs and no rubs GI: COMMON NORMALS: Soft to palpation and No hepatosplenomegaly present INSPECTION: Yes normal to inspection PALPATION: Yes Soft to palpation and Yes No hepatosplenomegaly present Extremity: COMMON NORMALS: normal to inspection, full ROM and capillary refill normal Neuro: MENINGEAL SIGNS: Yes no meningeal signs Skin: COMMON NORMALS: no rashes or lesions noted GENERAL SKIN EXAM: no rashes or lesions noted Course Vital Signs: Vital signs: Vital Signs Temperature 98.7 F 05/10/24 19:42 Pulse Rate 90 05/10/24 19:42 Respiratory Rate 18 05/10/24 19:42 Blood Pressure 127/64 05/10/24 19:42 Pulse Oximetry 96 05/10/24 19:42 MDM - Ear Medical Decision Making Patient history of hard of hearing and current tubes in place. Clinical signs and symptoms of ear infection as they were erythematous appearing. Will treat with amoxicillin at this time and have her follow-up with primary care to be referred to new ENT for monitoring of the tubes. Other return precautions given and patient discharged home at this time. No radiology studies performed this visit Discharge Plan Discharge Patient Disposition: Home Clinical Impression: Otitis media Condition: Stable Prescriptions: New amoxicillin 500 mg tablet 1,000 mg PO BID 10 Days Qty: 40 0RF No Action docusate sodium 100 mg capsule 100 mg PO BID PRN (Reason: Constipation) Rodrigo DayQuil Cough 5 mg/5 mL syrup 10 mg PO Q4H PRN (Reason: COUGH AND CONGESTION) levocetirizine [Xyzal] 5 mg tablet 5 mg PO DAILY PRN (Reason: allergy symptoms) Qty: 60 0RF tramadol 50 mg tablet PO amoxicillin-pot clavulanate 875-125 mg tablet 1 tab PO BID 15 Days Qty: 30 0RF fluconazole 150 mg tablet 150 mg PO Q3D Qty: 2 0RF neomycin-polymyxin B-dexameth [Maxitrol] 3.5mg/mL-10,000 unit/mL-0.1 % drops,suspension 4 drp ophthalmic (eye) Q12H 5 Days Qty: 5 0RF Rx Instructions: use in left ear fluoxetine [Prozac] 20 mg capsule 20 mg PO DAILY Qty: 30 1RF sumatriptan succinate 100 mg tablet See Rx Instructions .ROUTE .COMPLEX Qty: 9 0RF Dose Instruction: TAKE 1 TABLET BY MOUTH AT THE ONSET OF HEADACHE. IF NO RELIEF MAY REPEAT 1 TAB AFTER AT LEAST 2 HOURS. MAX OF 2 TABS IN 24 HOURS Rx Instructions: TAKE 1 TABLET BY MOUTH AT THE ONSET OF HEADACHE. IF NO RELIEF MAY REPEAT 1 TAB AFTER AT LEAST 2 HOURS. MAX OF 2 TABS IN 24 HOURS liothyronine 5 mcg tablet 5 mcg PO DAILY acetaminophen [Tylenol Extra Strength] 500 mg Tablet 1,000 mg PO Q6H PRN (Reason: Pain) oxybutynin chloride 10 mg tablet extended release 24hr 10 mg PO DAILY levothyroxine 112 mcg tablet 112 mcg PO DAILY buspirone 15 mg tablet 15 mg PO BID Discharge Orders: Discharge ED (Routine); Ordered 05/10/24 Ordered By: Jamarcus Najera Referrals: Savannah German FNP [Primary Care Provider] - Discharge Diet: Usual diet Discharge Activity: Increase activity as tolerated Patient Instructions: Ear Infection (ED), Pain Management Activity Restrictions/Additional Instructions: Take amoxicillin as prescribed. Follow-up with primary care/ENT for further evaluation. Tylenol or ibuprofen for any pain or fevers. Return with any new or worsening. Coding Level of Care Code ED Retail Sales Vitamin Consultant for Robyn Ruiz
== END 2024-05-10 19:43 | disposition home or self-care (01) ==
PROVIDERS: Emergency Provider Physician Assistant; PCP Nurse Practitioner Family
DX: H66.93 Otitis media, unspecified, bilateral (principal); E11.9 Type 2 diabetes mellitus without complications; I10 Essential (primary) hypertension; E78.5 Hyperlipidemia, unspecified
CPT/HCPCS: 99283

== ENCOUNTER → 2024-06-06 18:57 | Outpatient (BNVA) | payer MEDICARE, MEDICAID, SELFPAY ==
[2023-07-21 16:23] VITALS: BP 138/89; BMI 47.0
== END ==
PROVIDERS: PCP Nurse Practitioner Family; Visit Provider Emergency Medicine
DX: S59.901A Unspecified injury of right elbow, initial encounter (principal); W19.XXXA Unspecified fall, initial encounter
CPT/HCPCS: 73080

== ENCOUNTER 2024-06-08 17:19 | Emergency (ER) | payer MEDICARE, MEDICAID, SELFPAY ==
[2023-07-21 16:23] VITALS: BP 138/89; BMI 47.0
[2024-06-08 17:21] VITALS: BP 150/79; PULSE 81; RESP 22; TEMP 36.6; O2SAT 98
--- NOTE | 2024-06-08 17:23 | XRR_ITS ---
PROCEDURE INFORMATION: Exam: XR Right Wrist Exam date and time: 06/08/2024 5:31 PM Age: 54 years old Clinical indication: Injury or trauma; Fall; Blunt trauma (contusions or hematomas); Wrist; Right; Additional info: Pain TECHNIQUE: Imaging protocol: Radiologic exam of the right wrist. Views: 3 or more views. COMPARISON: CR XR elbow RT min 3V* [id number] 06/06/2024 7:06 PM FINDINGS: Bones/joints: No acute fractures or subluxations. Soft tissues: Normal. XR/XR wrist RT min 3V* [id number] IMPRESSION: No acute fractures or subluxations.
--- NOTE | 2024-06-08 17:40 | ED_ITS ---
HPI - Extremity Problem General: Chief complaint: Extremity Injury, Upper Stated complaint: right wrist pain Time Seen by Provider: 06/08/24 17:23 Source: patient Mode of arrival: ambulatory Limitations: no limitations History of Present Illness: Patient is a 54-year-old female presenting to the emergency department complaining of right wrist pain onset today. Patient states she fell on Friday, initially had elbow pain was seen at urgent care. States that the wrist pain began today without any new injury since the fall. Pain is reported to be over the joint line, no previous surgeries or fractures of the wrist. Pain is worse with pronation and supination. She is stating that her elbow pain has gotten better. Has been taking tramadol and Tylenol for pain. No distal neurovascular complaints or focal sensory deficits. MD Complaint: joint pain Onset (ago): hour(s) Pain Consistency: constant Location: right and upper extremity Radiation: none Relieving factors: nothing Exacerbating factors: range of motion Associated symptoms: Reports no associated symptoms; Deny chest pain, fever(s) or rash Context: other (Fall on Friday) Review of Systems General: Reports: 10 or more systems reviewed and unremarkable except in HPI and below Const: Denies: fever(s) or chills Card: Denies: chest pain Resp: Denies: dyspnea or productive cough GI: Denies: abdominal pain, nausea, vomiting or diarrhea : Denies: flank pain Musc: Reports: joint pain (Right wrist); Denies: neck pain, back pain, extremity pain, extremity swelling, joint swelling, joint redness, joint warmth, limited range of motion or muscle weakness Skin/Breast: Denies: rash Neuro: Denies: headache(s), numbness in extremities or weakness in extremities PFSH ED PFSH: Medical History Major depressive disorder, recurrent, moderate Recurrent UTI Urinary tract infection with hematuria Grief reaction Nausea & vomiting Dumping syndrome Dizziness Nausea & vomiting Psychiatric care Tinnitus Borderline intellectual functioning Generalized anxiety disorder Acute serous otitis media of left ear Controlled type 2 diabetes mellitus, without long-term current use of insulin Enrolled in chronic care management Seizure disorder Depression Hypertension Dyslipidemia Obesity Anxiety BHARAT (obstructive sleep apnea) Hypothyroidism GERD (gastroesophageal reflux disease) Surgical History History of placement of ear tubes History of gastric bypass 2020- - History of colonoscopy with polypectomy (~09/2018) History of laparoscopic cholecystectomy History of esophagogastroduodenoscopy (EGD) (~09/2018) History of hysterectomy with oophorectomy Family History Grandmother Cancer Father , at age 62 Lung disease Diabetes COPD (chronic obstructive pulmonary disease) Mother Rheumatic arteritis Depression Denies family history of Anesthesia complication Bleeding disorder Social History Smoking and tobacco/nicotine status: unknown if used tobacco/nicotine Second hand smoke exposure: No Alcohol intake: never Substance/Drug Use: never Adopted: No Caregiver/support person: Yes (nurse comes in and sets up her medications) Lives independently: Yes Household members: none Housing: Apartment Marital status: Single Number of children: 0 Highest education level completed: High School Graduate service: No Current occupational status: disabled Current occupational exposures/hazards: No Pets and animals: Yes Pets & animals: cat(s) Leisure activites: art Sexually active: No Do you think of yourself as: Straight/Heterosexual Current gender identity: Female Ania/Sabianism: None Special ania needs: No Agree to transfusion: Yes Physical Exam Const: COMMON NORMALS: no acute distress, patient oriented x3, no limitations, alert and well nourished NUTRITIONAL APPEARANCE: obese morbidly obese HENMT: COMMON NORMALS: normocephalic and atraumatic HEAD & SCALP: normocephalic and atraumatic Neck/C-Spine: COMMON NORMALS: full ROM, supple and no meningeal signs Resp: COMMON NORMALS: normal respiratory effort, No use of accessory muscles and clear to auscultation bilaterally AUSCULTATION: clear to auscultation bilaterally Cardio: COMMON NORMALS: regular rate and regular rhythm RATE: regular rate RHYTHM: regular rhythm Extremity: COMMON NORMALS: full ROM, capillary refill normal, no joint enlargement and no clubbing, cyanosis or edema NARRATIVE EXTREMITY EXAM: Mild tenderness to palpation at the dorsal right wrist. No obvious deformity or swelling. No bruising. Pain with range of motion, specifically pronation and supination of the right upper extremity. Distal neurovascular exam intact. No focal sensory deficit. Neuro: COMMON NORMALS: patient oriented x3, moves all extremities, no focal motor deficits and no sensory deficits noted SENSORIUM/ORIENTATION: Yes alert MENINGEAL SIGNS: Yes no meningeal signs Skin: COMMON NORMALS: no rashes or lesions noted GENERAL SKIN EXAM: no rashes or lesions noted Course Vital Signs: Vital signs: Vital Signs Temperature 97.9 F 06/08/24 17:21 Pulse Rate 81 06/08/24 17:21 Respiratory Rate 22 H 06/08/24 17:21 Blood Pressure 150/79 06/08/24 17:21 Pulse Oximetry 98 06/08/24 17:21 Oxygen Delivery Me thod Room Air 06/08/24 17:21 MDM - Extremity (Nontraumatic) Medical Decision Making Patient presented for acute onset right wrist pain, stating it was from a fall on Friday. Vitals normal on arrival. Physical examination overall unremarkable, was some mild tenderness palpation of the wrist joint. X-ray was negative. Patient already takes tramadol at home for back pain, she is to continue taking this as well as to ice and use compression. Likely a sprain at this time, however she is instructed to follow-up with her primary care provider if she continues to have pain for further evaluation. Lab Data Radiology Impressions Wrist X-Ray 06/08/24 17:23 IMPRESSION: No acute fractures or subluxations. All radiology interpretation(s) finalized by discharge Discharge Plan Discharge Patient Disposition: Home Clinical Impression: Right wrist sprain Qualifiers: Encounter type: initial encounter Qualified Code(s): S63.501A - Unspecified sprain of right wrist, initial encounter Condition: Stable Prescriptions: No Action docusate sodium 100 mg capsule 100 mg PO BID PRN (Reason: Constipation) Vicks DayQuil Cough 5 mg/5 mL syrup 10 mg PO Q4H PRN (Reason: COUGH AND CONGESTION) levocetirizine [Xyzal] 5 mg tablet 5 mg PO DAILY PRN (Reason: allergy symptoms) Qty: 60 0RF tramadol 50 mg tablet PO amoxicillin-pot clavulanate 875-125 mg tablet 1 tab PO BID 15 Days Qty: 30 0RF fluconazole 150 mg tablet 150 mg PO Q3D Qty: 2 0RF neomycin-polymyxin B-dexameth [Maxitrol] 3.5mg/mL-10,000 unit/mL-0.1 % drops,suspension 4 drp ophthalmic (eye) Q12H 5 Days Qty: 5 0RF Rx Instructions: use in left ear fluoxetine [Prozac] 20 mg capsule 20 mg PO DAILY Qty: 30 1RF sumatriptan succinate 100 mg tablet See Rx Instructions .ROUTE .COMPLEX Qty: 9 0RF Dose Instruction: TAKE 1 TABLET BY MOUTH AT THE ONSET OF HEADACHE. IF NO RELIEF MAY REPEAT 1 TAB AFTER AT LEAST 2 HOURS. MAX OF 2 TABS IN 24 HOURS Rx Instructions: TAKE 1 TABLET BY MOUTH AT THE ONSET OF HEADACHE. IF NO RELIEF MAY REPEAT 1 TAB AFTER AT LEAST 2 HOURS. MAX OF 2 TABS IN 24 HOURS liothyronine 5 mcg tablet 5 mcg PO DAILY acetaminophen [Tylenol Extra Strength] 500 mg Tablet 1,000 mg PO Q6H PRN (Reason: Pain) oxybutynin chloride 10 mg tablet extended release 24hr 10 mg PO DAILY levothyroxine 112 mcg tablet 112 mcg PO DAILY buspirone 15 mg tablet 15 mg PO BID Discharge Orders: Discharge ED (Routine); Ordered 06/08/24 Ordered By: Jamarcus Najera Referrals: Savannah German FNP [Primary Care Provider] - Discharge Diet: Usual diet Discharge Activity: Increase activity as tolerated Patient Instructions: Wrist Sprain (ED) Activity Restrictions/Additional Instructions: Continue taking pain medications at home that you already have. Gentle range of motion exercises as tolerated. Ice. If you continue to have pain please follow-up with your primary care provider for further evaluation. Coding Level of Care Code ED Windshield Repair Technician for Robyn Ruiz
== END 2024-06-08 17:56 | disposition home or self-care (01) ==
PROVIDERS: Emergency Provider Physician Assistant; PCP Nurse Practitioner Family
DX: S63.501A Unspecified sprain of right wrist, initial encounter (principal); W19.XXXA Unspecified fall, initial encounter; E11.9 Type 2 diabetes mellitus without complications; I10 Essential (primary) hypertension; E78.5 Hyperlipidemia, unspecified
CPT/HCPCS: 73110; 99283

== ENCOUNTER → 2024-08-15 17:44 | Outpatient (BNVA) | payer MEDICARE, OTHER, SELFPAY ==
[2024-07-05 09:16] VITALS: BP 138/89; BMI 47.0
== END ==
PROVIDERS: PCP Nurse Practitioner Family; Visit Provider Nurse Practitioner
DX: R11.10 Vomiting, unspecified (principal)
CPT/HCPCS: 87400

== ENCOUNTER 2024-09-27 19:10 | Emergency (ER) | payer MEDICARE, SELFPAY ==
[2024-07-05 09:16] VITALS: BP 138/89; BMI 47.0
[2024-09-27 19:14] VITALS: BP 149/89; PULSE 66; RESP 18; TEMP 36.6; O2SAT 99
[2024-09-27 23:47] VITALS: BP 165/88; PULSE 66; O2SAT 98
--- NOTE | 2024-09-28 00:14 | ED_ITS ---
HPI - Weakness 2 General: Chief complaint: Weakness Stated complaint: N, Weakness, Chills Time Seen by Provider: 09/28/24 00:08 History of Present Illness: Patient presents to the ER with complaints of nausea vomiting chills and dizziness weakness for the past 1 to 2 weeks. 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 Patient sees Dr. Merritt the ear nose and throat in [place] he told her if she ever has any symptoms like fever chills dizziness or weakness to come to the ER because the infection may be going into her brain. So that is what patient is here for more evaluation. Review of Systems 2 General: Reports: 10 or more systems reviewed and unremarkable except in HPI and below PFSH ED 2 PFSH: Medical History Major depressive disorder, recurrent, moderate Recurrent UTI Urinary tract infection with hematuria Grief reaction Nausea & vomiting Dumping syndrome Dizziness Nausea & vomiting Psychiatric care Tinnitus Borderline intellectual functioning Generalized anxiety disorder Acute serous otitis media of left ear Controlled type 2 diabetes mellitus, without long-term current use of insulin Enrolled in chronic care management Seizure disorder Depression Hypertension Dyslipidemia Obesity Anxiety BHARAT (obstructive sleep apnea) Hypothyroidism GERD (gastroesophageal reflux disease) Surgical History History of placement of ear tubes History of gastric bypass 2020- History of colonoscopy with polypectomy (~09/2018) History of laparoscopic cholecystectomy History of esophagogastroduodenoscopy (EGD) (~09/2018) History of hysterectomy with oophorectomy Family History Grandmother Cancer Father , at age 62 Lung disease Diabetes COPD (chronic obstructive pulmonary disease) Mother Rheumatic arteritis Depression Denies family history of Anesthesia complication Bleeding disorder Social History Smoking and tobacco/nicotine status: never used tobacco/nicotine Second hand smoke exposure: No Alcohol intake: never Substance/Drug Use: never Adopted: No Caregiver/support person: Yes (nurse comes in and sets up her medications) Lives independently: Yes Household members: none Housing: Apartment Marital status: Single Number of children: 0 Highest education level completed: High School Graduate service: No Current occupational status: disabled Current occupational exposures/hazards: No Pets and animals: Yes Pets & animals: cat(s) Leisure activites: art Sexually active: No Do you think of yourself as: Straight/Heterosexual Current gender identity: Female Ania/Temple: None Special ania needs: No Agree to transfusion: Yes Physical Exam 2 Const: COMMON NORMALS: no acute distress, average body habitus, patient oriented x3, no limitations, healthy appearing, alert and well nourished HENMT: COMMON NORMALS: normocephalic, atraumatic, hearing grossly normal bilaterally, external ears normal, EAC's normal (Blue tubes in place bilateral tympanic membranes), TM's normal bilaterally, Normal external nose present and moist oral mucous membranes HEAD & SCALP: normocephalic and atraumatic N OSE: Normal external nose present EXTERNAL EAR: Yes external ears normal E XTERNAL AUDITORY CANAL: EAC's normal (Blue tubes in place bilateral tympanic membranes) TYMPANIC MEMBRANE: TM's normal bilaterally Eye: COMMON NORMALS: Equal, round and reactive pupils present, EOMs intact bilaterally, conjunctivae normal and no scleral icterus CONJUNCTIVA: Yes conjunctivae normal PUPIL: Yes Equal, round and reactive pupils present Neck/C-Spine: COMMON NORMALS: full ROM, no lymphadenopathy, supple, no meningeal signs, no JVD and Thyroid normal THYROID: Thyroid normal Chest: COMMONS NORMALS: normal inspection of the chest and normal palpation of entire chest wall Resp: COMMON NORMALS: normal respiratory effort, No retractions, No use of accessory muscles and clear to auscultation bilaterally AUSCULTATION: clear to auscultation bilaterally Cardio: COMMON NORMALS: no JVD, regular rate, regular rhythm, S1 normal heart sound present, S2 normal heart sound present, No gallops present (Cardio), No clicks present (Cardio), No murmurs present (Cardio) and No rub (Cardio) R ATE: regular rate RHYTHM: regular rhythm HEART SOUNDS: S1 normal heart sound present and S2 normal heart sound present GI: COMMON NORMALS: Normal to inspection, nondistended, normoactive bowel sounds present, Soft to palpation, non-tender, No hepatosplenomegaly present and no masses PALPATION: Yes Soft to palpation and Yes No hepatosplenomegaly present Neuro: COMMON NORMALS: patient oriented x3 SENSORIUM/ORIENTATION: Yes alert MENINGEAL SIGNS: Yes no meningeal signs Course 2 Vital Signs: Vital signs: Vital Signs Temperature 97.8 F 09/27/24 19:14 Pulse Rate 57 L 09/28/24 01:01 Respiratory Rate 18 09/27/24 19:14 Blood Pressure 155/77 09/28/24 01:01 Pulse Oximetry 99 09/28/24 01:01 Oxygen Delivery Me thod Room Air 09/27/24 23:47 MDM - Weakness Medical Decision Making Lab work was drawn CBC CMP essentially unremarkable, urinalysis showed UTI. Patient given Cipro here in ER and be discharged home on Cipro. Lab Data 09/28/24 00:31 09/28/24 00:31 Laboratory Results WBC 7.69 10^3/uL (3.29-11.43) 09/28/24 00:31 RBC 4.92 10^6/uL (3.85-5.65) 09/28/24 00:31 Hgb 13.20 g/dL (11.27-16.99) 09/28/24 00:31 Hct 41.7 % (36-47) 09/28/24 00:31 MCV 84.8 fl (85-98) L 09/28/24 00:31 MCH 26.8 pg (27-33) L 09/28/24 00:31 MCHC 31.7 g/dL (30-55) 09/28/24 00:31 RDW 12.9 % (12.1-15.1) 09/28/24 00:31 Plt Count 305 10^3/cmm (157-399) 09/28/24 00:31 MPV 9.1 fL (7.4-10.4) 09/28/24 00:31 Neut % (Auto) 58.9 % 09/28/24 00:31 Lymph % (Auto) 31.6 % 09/28/24 00:31 [place] % (Auto) 7.5 % 09/28/24 00:31 Eos % (Auto) 1.4 % 09/28/24 00:31 Baso % (Auto) 0.5 % 09/28/24 00:31 Neut # (Auto) 4.52 10^3/uL (1.8-7.7) 09/28/24 00:31 Lymph # (Auto) 2.4 10^3/uL (0.8-4.8) 09/28/24 00:31 [place] # (Auto) 0.6 10^3/uL (0.2-0.9) 09/28/24 00:31 Eos # (Auto) 0.1 10^3/uL (0.0-0.8) 09/28/24 00:31 Baso # (Auto) 0.0 10^3/uL (0.0-0.1) 09/28/24 00:31 Nucleated RBC % (auto) 0 % 09/28/24 00: Nucleated RBCs # 0.0 /100WBC 09/28/24 00:31 Sodium 136 mmol/L (136-145) 09/28/24 00: Potassium 4.0 mmol/L (3.5-5.1) 09/28/24 00: Chloride 103 mmol/L (98-107) 09/28/24 00: Carbon Dioxide 24 mmol/L (22-29) 09/28/24 00:31 Anion Gap 13.0 (5-19) 09/28/24 00: BUN 15 mg/dL (6-20) 09/28/24 00: Creatinine 0.8 mg/dL (0.5-0.9) 09/28/24 00: Calculated Osmolality 285 mOsm/kg (285-295) 09/28/24 00: Total Bilirubin 0.2 mg/dL (0.15-1.2) 09/28/24 00:31 AST 17 U/L (0-32) 09/28/24 00: ALT 15 U/L (0-33) 09/28/24 00:31 Alkaline Phosphatase 102 U/L (35-105) 09/28/24 00:31 Total Protein 7.6 g/dL (6.6-8.7) 09/28/24 00:31 Albumin 4.0 g/dL (3.5-5.2) 09/28/24 00:31 Globulin 3.6 g/dL (1.3-4.6) 09/28/24 00:31 Urine Color Yellow (Yellow) 09/28/24:17 Urine Appearance Cloudy (CLEAR) A 09/28/24 00:17 Urine pH 5.5 (5-7) 09/28/24 00:17 Ur Specific [place] 1.022 (1.005-1.030) 09/28/24 00:17 Urine Protein Negative (Negative) 09/28/24 00:17 Urine Glucose (UA) Negative (Normal) 09/28/24 00:17 Urine Ketones Negative (Negative) 09/28/24 00:17 Urine Blood Trace (Negative) A 09/28/24 00:17 Urine Nitrate Negative (Negative) 09/28/24 00:17 Urine Bilirubin Negative (Negative) 09/28/24 00:17 Urine Urobilinogen 1.0 mg/dL (Negative) 09/28/24 00:17 Ur Leukocyte Esterase 2+ (Negative) A 09/28/24 00:17 Urine RBC 11-20 /hpf (0-2) H 09/28/24 00:17 Urine WBC 21-50 /hpf (0-5) H 09/28/24 00:17 Ur Squamous Epith Cells 21-50 /hpf (0-5) 09/28/24 00:17 Amorphous Sediment Not Reportable 09/28/24 00:17 Urine Bacteria 3+ /hpf (NONE) H 09/28/24 00:17 Hyaline Casts 2.46 /lpf 09/28/24 00:17 All radiology interpretation(s) finalized by discharge Discharge Plan Discharge Patient Disposition: Home Clinical Impression: Urinary tract infection Qualifiers: Urinary tract infection type: acute cystitis Hematuria presence: with hematuria Qualified Code(s): N30.01 - Acute cystitis with hematuria Condition: Stable Prescriptions: New ciprofloxacin HCl 500 mg tablet 500 mg PO Q12H Qty: 20 0RF No Action docusate sodium 100 mg capsule 100 mg PO BID PRN (Reason: Constipation) lidocaine 5 % ointment 1 applic topical BID PRN (Reason: pain) Qty: 30 0RF Ozempic 0.25 mg or 0.5 mg (2 mg/3 mL) pen injector 0.5 mg SUBCUT .weekly amoxicillin 500 mg tablet 1,000 mg PO BID 10 Days Qty: 40 0RF methocarbamol 750 mg tablet 750 mg PO Q8H PRN (Reason: neck pain) Qty: 30 0RF Vicks DayQuil Cough 5 mg/5 mL syrup 10 mg PO Q4H PRN (Reason: COUGH AND CONGESTION) levocetirizine [Xyzal] 5 mg tablet 5 mg PO DAILY PRN (Reason: allergy symptoms) Qty: 60 0RF tramadol 50 mg tablet PO fluconazole 150 mg tablet 150 mg PO Q3D Qty: 2 0RF neomycin-polymyxin B-dexameth [Maxitrol] 3.5mg/mL-10,000 unit/mL-0.1 % drops,suspension 4 drp ophthalmic (eye) Q12H 5 Days Qty: 5 0RF Rx Instructions: use in left ear sumatriptan succinate 100 mg tablet See Rx Instructions .ROUTE .COMPLEX Qty: 9 0RF Dose Instruction: TAKE 1 TABLET BY MOUTH AT THE ONSET OF HEADACHE. IF NO RELIEF MAY REPEAT 1 TAB AFTER AT LEAST 2 HOURS. MAX OF 2 TABS IN 24 HOURS Rx Instructions: TAKE 1 TABLET BY MOUTH AT THE ONSET OF HEADACHE. IF NO RELIEF MAY REPEAT 1 TAB AFTER AT LEAST 2 HOURS. MAX OF 2 TABS IN 24 HOURS fluoxetine [Prozac] 20 mg capsule 20 mg PO DAILY Qty: 30 1RF buspirone 15 mg tablet 15 mg PO BID Qty: 60 1RF liothyronine 5 mcg tablet 5 mcg PO DAILY acetaminophen [Tylenol Extra Strength] 500 mg Tablet 1,000 mg PO Q6H PRN (Reason: Pain) oxybutynin chloride 10 mg tablet extended release 24hr 10 mg PO DAILY levothyroxine 112 mcg tablet 112 mcg PO DAILY Discharge Orders: Discharge ED (Routine); Ordered 09/28/24 Ordered By: Gene Hagan Referrals: Savannah German FNP [Primary Care Provider] - 1 week Patient Instructions: Urinary Tract Infection in Women (DC) Activity Restrictions/Additional Instructions: A prescription for antibiotic called ciprofloxacin has been sent to your pharmacy. Please pick it up and take it as directed this will help treat your urinary tract infection. Thank you for choosing [facility] for your healthcare needs today. Please realize that you were seen in the emergency department and that we are providing you with an emergency medical screening exam and this may not be a complete and all exclusive of all testing and/or medical workup we may need to determine your element or severity of your illness. It is very important that you follow-up as instructed with your primary care provider or specialist for the additional evaluation and to discuss your medical treatment plan. You may return to the emergency department should you have concerns or if your condition changes or worsens in any way. Coding Level of Care Code ED [employer] Operator for Chg Fwd Related Data Home Medications Medication Instructions Recorded Confirmed docusate sodium 100 mg capsule 100 mg PO BID PRN Constipation 11/16/19 08/21/24 liothyronine 5 mcg tablet 5 mcg PO DAILY 05/03/20 08/21/24 acetaminophen 500 mg tablet 1,000 mg PO Q6H PRN Pain 10/24/20 08/21/24 (Tylenol Extra Strength) dextromethorphan HBr 5 mg/5 mL 10 mg PO Q4H PRN COUGH AND 07/06/23 08/21/24 oral syrup (Vicks DayQuil Cough) CONGESTION levothyroxine 112 mcg tablet 112 mcg PO DAILY 12/12/23 08/21/24 oxybutynin chloride 10 mg 10 mg PO DAILY 12/12/23 08/21/24 tablet,extended release 24 hr tramadol 50 mg tablet mg PO 03/25/24 08/21/24 semaglutide 0.25 mg or 0.5 mg (2 0.5 mg SUBCUT .weekly 07/27/24 08/21/24 mg/3 mL) subcutaneous pen injector ([place]) Previous Rx's Medication Instructions Recorded levocetirizine 5 mg tablet (Xyzal) 5 mg PO DAILY PRN allergy symptoms 09/21/23 #60 tabs fluconazole 150 mg tablet 150 mg PO Q3D 2 doses #2 tabs 04/05/24 [id number] 3.5 4 drp ophthalmic (eye) Q12H 5 days 04/13/24 mg/mL-10,000 unit/mL-0.1% eye #5 mL drops (Maxitrol) sumatriptan succinate 100 mg tablet See Rx Instructions .Route 06/16/24 .COMPLEX #9 tabs lidocaine 5 % topical ointment 1 applic topical BID PRN pain #30 06/30/24 grams buspirone 15 mg tablet 15 mg PO BID #60 tabs 07/28/24 fluoxetine 20 mg capsule (Prozac) 20 mg PO DAILY #30 caps 07/28/24 amoxicillin 500 mg tablet 1,000 mg (2 x 500 mg) PO BID 10 08/21/24 days #40 tabs methocarbamol 750 mg tablet 750 mg PO Q8H PRN neck pain #30 08/21/24 tabs ciprofloxacin HCl 500 mg tablet 500 mg PO Q12H #20 tabs 09/28/24 Allergies Allergy/AdvReac Type Severity Reaction Status Date / Time lisinopril Allergy Severe Unknown Verified 09/27/24 19:18 Pertussis Vaccines Allergy Severe ALGY-Rash Verified 09/27/24 19:18 Sulfa (Sulfonamide Allergy Severe ALGY-Rash Verified 09/27/24 19:18 Antibiotics) sulfamethoxazole Allergy Severe Unknown Verified 09/27/24 19:18 [From ] trimethoprim [From ] Allergy Severe Unknown Verified 09/27/24 19:18 ibuprofen Allergy ALGY-Anaphy Verified 09/27/24 19:18 laxis
[2024-09-28 00:25] LABS: Bilirubin Urine Negative (Negative); Blood Urine Trace (Negative); Glucose Urine UA Negative (Normal); Ketones Urine Negative (Negative); Leukocyte Esterase Urine 2+ (Negative); Nitrate Urine Negative (Negative); Protein Urine Negative (Negative); Specific Gravity, Urine 1.022 (1.005-1.030); Urine Appearance Cloudy (CLEAR); Urine Color Yellow (Yellow); pH Urine 5.5 (5-7)
[2024-09-28 00:29] LABS: Add Urine Microscopic? YES; Bacteria Urine 3+ /hpf; Hyaline Casts Urine 2.46 /lpf; Squamous Epithelial Cell Urine 21-50 /hpf (0-5); WBC Urine 21-50 /hpf (0-5)
[2024-09-28 00:30] LABS: Add Urine Culture? No
[2024-09-28 00:39] LABS: Basophils % 0.5 %; Eosinophils # 0.1 10^3/uL (0.0-0.8); Eosinophils % 1.4 %; Hematocrit 41.7 % (36-47); Lymphocytes # 2.4 10^3/uL (0.8-4.8); Lymphocytes % 31.6 %; Mean Corpuscular HGB Conc 31.7 g/dL (30-55); Mean Corpuscular Hemoglobin 26.8 pg (27-33); Mean Corpuscular Volume 84.8 fl (85-98); Mean Platelet Volume 9.1 fL (7.4-10.4); Monocytes # 0.6 10^3/uL (0.2-0.9); Monocytes % 7.5 %; Neutrophils # 4.52 10^3/uL (1.8-7.7); Neutrophils % 58.9 %; Nucleated Red Blood Cells % 0 %; Platelet Count 305 10^3/cmm (157-399); Red Blood Count 4.92 10^6/uL (3.85-5.65); Red Cell Distribution Width 12.9 % (12.1-15.1); White Blood Count 7.69 10^3/uL (3.29-11.43)
[2024-09-28 00:41] VITALS: BP 155/94; PULSE 60; O2SAT 99
[2024-09-28 00:58] LABS: Alanine Aminotransferase 15 U/L (0-33); Alkaline Phosphatase 102 U/L (35-105); Aspartate Amino Transferase 17 U/L (0-32); Blood Urea Nitrogen 15 mg/dL (6-20); Calcium 8.3 mg/dL (8.5-10.5); Carbon Dioxide 24 mmol/L (22-29); Chloride 103 mmol/L (98-107); Creatinine Clr Calc Pharmacy 119.2457; Globulin 3.6 g/dL (1.3-4.6); Glomerular Filtration Rate 75.3 mL/min (90-130); Glucose 132 mg/dL (65-115); Osmolality Calculated 285 mOsm/kg (285-295); Sodium 136 mmol/L (136-145); Total Bilirubin 0.2 mg/dL (0.15-1.2); Total Protein 7.6 g/dL (6.6-8.7)
[2024-09-28 01:01] VITALS: BP 155/77; PULSE 57; O2SAT 99
[2024-09-28] MEDS: ciprofloxacin 500 mg Tablet PO (01:14)
[2024-09-28 01:22] VITALS: BP 104/82; PULSE 70; O2SAT 98
== END 2024-09-28 01:24 | disposition home or self-care (01) ==
PROVIDERS: Emergency Provider Emergency Medicine; PCP Nurse Practitioner Family
DX: N30.01 Acute cystitis with hematuria (principal); E11.9 Type 2 diabetes mellitus without complications; I10 Essential (primary) hypertension; E78.5 Hyperlipidemia, unspecified
CPT/HCPCS: 36415; 80053; 81001; 85025; 99283

== ENCOUNTER 2024-12-10 19:33 | Emergency (ER) | payer MEDICARE, MEDICAID, SELFPAY ==
[2024-07-05 09:16] VITALS: BP 138/89; BMI 47.0
[2024-12-10 19:39] VITALS: BP 130/69; PULSE 93; RESP 18; TEMP 36.5; O2SAT 100
[2024-12-10 20:02] LABS: Basophils % 0.5 %; Eosinophils # 0.1 10^3/uL (0.0-0.8); Hematocrit 44.5 % (36-47); Lymphocytes # 2.4 10^3/uL (0.8-4.8); Lymphocytes % 30.4 %; Mean Corpuscular HGB Conc 30.6 g/dL (30-55); Mean Corpuscular Hemoglobin 26.4 pg (27-33); Mean Corpuscular Volume 86.4 fl (85-98); Mean Platelet Volume 9.1 fL (7.4-10.4); Monocytes # 0.5 10^3/uL (0.2-0.9); Neutrophils # 4.83 10^3/uL (1.8-7.7); Neutrophils % 61.8 %; Nucleated Red Blood Cells % 0 %; Platelet Count 250 10^3/cmm (157-399); Red Blood Count 5.15 10^6/uL (3.85-5.65); Red Cell Distribution Width 13.2 % (12.1-15.1); White Blood Count 7.82 10^3/uL (3.29-11.43)
[2024-12-10 20:21] LABS: Alanine Aminotransferase 15 U/L (0-33); Albumin Level 3.8 g/dL (3.5-5.2); Alkaline Phosphatase 116 U/L (35-105); Anion Gap 15.1 (5-19); Aspartate Amino Transferase 18 U/L (0-32); Blood Urea Nitrogen 13 mg/dL (6-20); Calcium 9.3 mg/dL (8.5-10.5); Carbon Dioxide 24 mmol/L (22-29); Chloride 104 mmol/L (98-107); Creatinine Clr Calc Pharmacy 105.3678; Globulin 4.1 g/dL (1.3-4.6); Glomerular Filtration Rate 65.8 mL/min (90-130); Glucose 188 mg/dL (65-115); Osmolality Calculated 293 mOsm/kg (285-295); Potassium 4.1 mmol/L (3.5-5.1); Sodium 139 mmol/L (136-145); Total Bilirubin 0.2 mg/dL (0.15-1.2); Total Protein 7.9 g/dL (6.6-8.7)
[2024-12-10 21:59] LABS: Bilirubin Urine Negative (Negative); Blood Urine 1+ (Negative); Glucose Urine UA Negative (Normal); Ketones Urine Negative (Negative); Leukocyte Esterase Urine Trace (Negative); Nitrate Urine Positive (Negative); Protein Urine Trace (Negative); Specific Gravity, Urine 1.022 (1.005-1.030); Urine Appearance Cloudy (CLEAR); Urine Color Yellow (Yellow); pH Urine 5.5 (5-7)
[2024-12-10 22:04] LABS: Add Urine Microscopic? YES; Bacteria Urine 4+ /hpf; WBC Urine 21-50 /hpf (0-5)
[2024-12-10 22:33] LABS: Add Urine Culture? Yes
[2024-12-10 22:36] LABS: Covid PCR NEGATIVE (Negative); Influenza A NEGATIVE (Negative); Influenza B NEGATIVE (Negative); Respiratory Syncytial Virus Ce NEGATIVE (Negative)
--- NOTE | 2024-12-10 23:10 | W.ED.URI ---
HPI - URI/Sore Throat General: Chief Complaint: Upper Respiratory Infection Stated Complaint: weak n/v sleepy cold Time Seen by Provider: 12/10/24 22:37 Source: patient Mode of arrival: ambulatory Limitations: no limitations History of Present Illness: Patient is a 54-year-old female who presents emergency department with multiple complaints. States that her home health today stated that she was losing hair, she is concerned that this is from her hypothyroid. States that she used to see endocrinology in [place] but has not seen them in a long time and is waiting to get referred to another. Also notes her skin has been dry. When I redirect her back to why she presented today, she also states that for the past few weeks she has had chills, headache, cough, and congestion along with other respiratory symptoms. She states she has been taking [id number] medications but these have not been helping much. Denies any known sick contacts. No chest pain, no shortness of breath, no abdominal pain, no nausea vomiting diarrhea, no other symptoms at this time. Onset (ago): week(s) Consistency: constant Associated symptoms: Reports chills, headache(s) and nasal congestion; Deny abdominal pain, chest pain, diarrhea, ear or mastoid pain, fever(s), nausea or vomiting Related Data Home Medications Medication Instructions Recorded Confirmed docusate sodium 100 mg capsule 100 mg PO BID PRN Constipation 11/16/19 11/25/24 liothyronine 5 mcg tablet 5 mcg PO DAILY 05/03/20 11/25/24 acetaminophen 500 mg tablet 1,000 mg PO Q6H PRN Pain 10/24/20 11/25/24 (Tylenol Extra Strength) dextromethorphan HBr 5 mg/5 mL 10 mg PO Q4H PRN COUGH AND 07/06/23 11/25/24 oral syrup (Vicks DayQuil Cough) CONGESTION levothyroxine 112 mcg tablet 112 mcg PO DAILY 12/12/23 11/25/24 oxybutynin chloride 10 mg 10 mg PO DAILY 12/12/23 11/25/24 tablet,extended release 24 hr tramadol 50 mg tablet mg PO 03/25/24 11/25/24 semaglutide 0.25 mg or 0.5 mg (2 1 mg SUBCUT .weekly 01/16/25 01/16/25 mg/3 mL) subcutaneous pen injector ([email or web address]) Previous Rx's Medication Instructions Recorded levocetirizine 5 mg tablet (Xyzal) 5 mg PO DAILY PRN allergy symptoms 09/21/23 #60 tabs fluconazole 150 mg tablet 150 mg PO Q3D 2 doses #2 tabs 04/05/24 [id number]-[id number]-wokabiro 3.5 4 drp ophthalmic (eye) Q12H 5 days 04/13/24 mg/mL-10,000 unit/mL-0.1% eye #5 mL drops (Maxitrol) sumatriptan succinate 100 mg tablet See Rx Instructions .Route 06/16/24 .COMPLEX #9 tabs lidocaine 5 % topical ointment 1 applic topical BID PRN pain #30 06/30/24 grams amoxicillin 500 mg tablet 1,000 mg (2 x 500 mg) PO BID 10 08/21/24 days #40 tabs methocarbamol 750 mg tablet 750 mg PO Q8H PRN neck pain #30 08/21/24 tabs ciprofloxacin HCl 500 mg tablet 500 mg PO Q12H #20 tabs 09/28/24 buspirone 15 mg tablet 15 mg PO BID #60 tabs 11/25/24 fluoxetine 20 mg capsule (Prozac) 20 mg PO DAILY #30 caps 11/25/24 cefdinir 300 mg capsule 300 mg PO BID 7 days #14 caps 12/10/24 Allergies Allergy/AdvReac Type Severity Reaction Status Date / Time lisinopril Allergy Severe Unknown Verified 12/10/24 19:42 Pertussis Vaccines Allergy Severe ALGY-Rash Verified 12/10/24 19:42 Sulfa (Sulfonamide Allergy Severe ALGY-Rash Verified 12/10/24 19:42 Antibiotics) sulfamethoxazole Allergy Severe Unknown Verified 12/10/24 19:42 [From ] trimethoprim [From ] Allergy Severe Unknown Verified 12/10/24 19:42 ibuprofen Allergy ALGY-Anaphy Verified 12/10/24 19:42 laxis Review of Systems General: Reports: 10 or more systems reviewed and unremarkable except in HPI and below Const: Reports: chills; Denies: fever(s) or fatigue Eyes: Denies: change in vision ENMT: Reports: nasal congestion; Denies: throat pain, ear or mastoid pain or nasal discharge Card: Denies: chest pain, palpitations, swelling of feet/ankles or lightheadedness Resp: Reports: non-productive cough; Denies: dyspnea, productive cough or wheezing GI: Denies: abdominal pain, nausea, vomiting, diarrhea or constipation : Denies: flank pain, difficulty voiding, dysuria or urinary frequency Musc: Denies: neck pain, back pain or joint pain Skin/Breast: Denies: rash Neuro: Reports: headache(s); Denies: numbness in extremities or weakness in extremities Endo: Reports: other (Dry skin, losing hair) PFSH ED PFSH: Medical History Major depressive disorder, recurrent, moderate Recurrent UTI Urinary tract infection with hematuria Grief reaction Nausea & vomiting Dumping syndrome Dizziness Nausea & vomiting Psychiatric care Tinnitus Borderline intellectual functioning Generalized anxiety disorder Acute serous otitis media of left ear Controlled type 2 diabetes mellitus, without long-term current use of insulin Enrolled in chronic care management Seizure disorder Depression Hypertension Dyslipidemia Obesity Anxiety BHARAT (obstructive sleep apnea) Hypothyroidism GERD (gastroesophageal reflux disease) Surgical History History of placement of ear tubes History of gastric bypass History of colonoscopy with polypectomy (~09/2018) History of laparoscopic cholecystectomy History of esophagogastroduodenoscopy (EGD) (~09/2018) History of hysterectomy with oophorectomy Family History Grandmother Cancer Father , at age 62 Lung disease Diabetes COPD (chronic obstructive pulmonary disease) Mother Rheumatic arteritis Depression Denies family history of Anesthesia complication Bleeding disorder Social History Smoking and tobacco/nicotine status: never used tobacco/nicotine Second hand smoke exposure: No Alcohol intake: never Substance/Drug Use: never Adopted: No Caregiver/support person: Yes (nurse comes in and sets up her medications) Lives independently: Yes Household members: none Housing: Apartment Marital status: Single Number of children: 0 Highest education level completed: High School Graduate service: No Current occupational status: disabled Current occupational exposures/hazards: No Pets and animals: Yes Pets & animals: cat(s) Leisure activites: art Sexually active: No Do you think of yourself as: Straight/Heterosexual Current gender identity: Female Ania/Confucianism: None Special ania needs: No Agree to transfusion: Yes Physical Exam Const: COMMON NORMALS: no acute distress, patient oriented x3 and no limitations GENERAL APPEARANCE: cooperative and well developed NUTRITIONAL APPEARANCE: obese ORIENTATION/CONSCIOUSNESS: Yes awake, Yes oriented to person, Yes oriented to place and Yes oriented to time OTHER: No active distress HENMT: COMMON NORMALS: normocephalic, atraumatic and hearing grossly normal bilaterally HEAD & SCALP: normocephalic and atraumatic Eye: COMMON NORMALS: Equal, round and reactive pupils present, EOMs intact bilaterally and conjunctivae normal CONJUNCTIVA: Yes conjunctivae normal PUPIL: Yes Equal, round and reactive pupils present Neck/C-Spine: COMMON NORMALS: full ROM, supple and no JVD Resp: COMMON NORMALS: normal respiratory effort, No retractions, No use of accessory muscles and clear to auscultation bilaterally AUSCULTATION: clear to auscultation bilaterally Cardio: COMMON NORMALS: no JVD, regular rate, regular rhythm, No clicks present (Cardio), No murmurs present (Cardio) and No rub (Cardio) RATE: regular rate RHYTHM: regular rhythm GI: COMMON NORMALS: Normal to inspection, nondistended, normoactive bowel sounds present, Soft to palpation and non-tender AUSCULTATION: Yes normoactive bowel sounds PALPATION: Yes Soft to palpation RECTAL EXAM: deferred Extremity: COMMON NORMALS: normal to inspection, full ROM and capillary refill normal Neuro: COMMON NORMALS: patient oriented x3, moves all extremities, no focal motor deficits and no sensory deficits noted SENSORIUM/ORIENTATION: Yes oriented to person, Yes oriented to place and Yes oriented to time Psych: COMMON NORMALS: mental status grossly normal and Normal thought process present APPEARANCE: Yes disheveled THOUGHT PROCESS: Normal thought process present Skin: COMMON NORMALS: no rashes or lesions noted GENERAL SKIN EXAM: no rashes or lesions noted Course Vital Signs: Vital signs: Vital Signs Temperature 97.7 F 12/10/24 19:39 Pulse Rate 93 12/10/24 19:39 Respiratory Rate 18 12/10/24 19:39 Blood Pressure 130/69 12/10/24 19:39 Pulse Oximetry 100 12/10/24 19:39 MDM - URI/Sore Throat Medical Decision Making Patient is well-known to the ED here has been seen multiple times, she arrives with multiple complaints today. Primary complaints were related to her thyroid, I told her to follow-up with primary care so that she can be referred endocrinology for this. Her vague upper respiratory symptoms have been going on for weeks, her swab was negative today. Rest of her lab work was unremarkable. Urinalysis did show some signs of a UTI which we will treat. She had began stating she was having back pain but that she has chronic back issues, also told her to follow-up with primary care in regards to this. I do not suspect any acute process at this time we will have her return with any acute concerns and started on antibiotics. Lab Data 12/10/24 19:55 12/10/24 19:55 Laboratory Results WBC 7.82 10^3/uL (3.29-11.43) 12/10/24 19:55 RBC 5.15 10^6/uL (3.85-5.65) 12/10/24 19:55 Hgb 13.60 g/dL (11.27-16.99) 12/10/24 19:55 Hct 44.5 % (36-47) 12/10/24 19:55 MCV 86.4 fl (85-98) 12/10/24 19:55 MCH 26.4 pg (27-33) L 12/10/24 19:55 MCHC 30.6 g/dL (30-55) 12/10/24 19:55 RDW 13.2 % (12.1-15.1) 12/10/24 19:55 Plt Count 250 10^3/cmm (157-399) 12/10/24 19:55 MPV 9.1 fL (7.4-10.4) 12/10/24 19:55 Neut % (Auto) 61.8 % 12/10/24 19:55 Lymph % (Auto) 30.4 % 12/10/24 19:55 [place] % (Auto) 6.0 % 12/10/24 19:55 Eos % (Auto) 1.0 % 12/10/24 19:55 Baso % (Auto) 0.5 % 12/10/24 19:55 Neut # (Auto) 4.83 10^3/uL (1.8-7.7) 12/10/24 19:55 Lymph # (Auto) 2.4 10^3/uL (0.8-4.8) 12/10/24 19:55 [place] # (Auto) 0.5 10^3/uL (0.2-0.9) 12/10/24 19:55 Eos # (Auto) 0.1 10^3/uL (0.0-0.8) 12/10/24 19:55 Baso # (Auto) 0.0 10^3/uL (0.0-0.1) 12/10/24 19:55 Nucleated RBC % (auto) 0 % 12/10/24 19:55 Nucleated RBCs # 0.0 /100WBC 12/10/24 19:55 Sodium 139 mmol/L (136-145) 12/10/24 19:55 Potassium 4.1 mmol/L (3.5-5.1) 12/10/24 19:55 Chloride 104 mmol/L (98-107) 12/10/24 19:55 Carbon Dioxide 24 mmol/L (22-29) 12/10/24 19:55 Anion Gap 15.1 (5-19) 12/10/24 19:55 BUN 13 mg/dL (6-20) 12/10/24 19:55 Creatinine 0.9 mg/dL (0.5-0.9) 12/10/24 19:55 GFR Calculation 65.8 mL/min (90-130) L 12/10/24 19:55 Glucose 188 mg/dL (65-115) H 12/10/24 19:55 Calculated Osmolality 293 mOsm/kg (285-295) 12/10/24 19:55 Calcium 9.3 mg/dL (8.5-10.5) 12/10/24 19:55 Total Bilirubin 0.2 mg/dL (0.15-1.2) 12/10/24 19:55 AST 18 U/L (0-32) 12/10/24 19:55 ALT 15 U/L (0-33) 12/10/24 19:55 Alkaline Phosphatase 116 U/L (35-105) H 12/10/24 19:55 Total Protein 7.9 g/dL (6.6-8.7) 12/10/24 19:55 Albumin 3.8 g/dL (3.5-5.2) 12/10/24 19:55 Globulin 4.1 g/dL (1.3-4.6) 12/10/24 19:55 Urine Color Yellow (Yellow) 12/10/24 21:55 Urine Appearance Cloudy (CLEAR) A 12/10/24 21:55 Urine pH 5.5 (5-7) 12/10/24 21:55 Ur Specific [place] 1.022 (1.005-1.030) 12/10/24 21:55 Urine Protein Trace (Negative) A 12/10/24 21:55 Urine Glucose (UA) Negative (Normal) 12/10/24 21: Urine Ketones Negative (Negative) 12/10/24: Urine Blood 1+ (Negative) A 12/10/24: Urine Nitrate Positive (Negative) A 12/10/24 21: Urine Bilirubin Negative (Negative) 12/10/24 21: Urine Urobilinogen 1.0 mg/dL (Negative) 12/10/24 21: Ur Leukocyte Esterase Trace (Negative) A 12/10/24 21:55 Urine RBC 3-5 /hpf (0-2) 12/10/24 21:55 Urine WBC 21-50 /hpf (0-5) H 12/10/24 21:55 Ur Squamous Epith Cells 11-20 /hpf (0-5) H 12/10/24 21:55 Amorphous Sediment Not Reportable 12/10/24 21:55 Urine Bacteria 4+ /hpf (NONE) H 12/10/24 21:55 Hyaline Casts 3.30 /lpf 12/10/24 21:55 Coronavirus (PCR) Negative (Negative) 12/10/24 21:55 Influenza A (PCR) Negative (Negative) 12/10/24 21:55 Influenza Type B (PCR) Negative (Negative) 12/10/24 21:55 RSV (PCR) Negative (Negative) 12/10/24 21:55 No radiology studies performed this visit Discharge Plan Discharge Patient Disposition: Home Clinical Impression: Urinary tract infection Condition: Stable Prescriptions: New cefdinir 300 mg capsule 300 mg PO BID 7 Days Qty: 14 0RF No Action docusate sodium 100 mg capsule 100 mg PO BID PRN (Reason: Constipation) lidocaine 5 % ointment 1 applic topical BID PRN (Reason: pain) Qty: 30 0RF Ozempic 0.25 mg or 0.5 mg (2 mg/3 mL) pen injector 1 mg SUBCUT .weekly amoxicillin 500 mg tablet 1,000 mg PO BID 10 Days Qty: 40 0RF methocarbamol 750 mg tablet 750 mg PO Q8H PRN (Reason: neck pain) Qty: 30 0RF buspirone 15 mg tablet 15 mg PO BID Qty: 60 1RF fluoxetine [Prozac] 20 mg capsule 20 mg PO DAILY Qty: 30 1RF Vicks DayQuil Cough 5 mg/5 mL syrup 10 mg PO Q4H PRN (Reason: COUGH AND CONGESTION) levocetirizine [Xyzal] 5 mg tablet 5 mg PO DAILY PRN (Reason: allergy symptoms) Qty: 60 0RF tramadol 50 mg tablet PO fluconazole 150 mg tablet 150 mg PO Q3D Qty: 2 0RF neomycin-polymyxin B-dexameth [Maxitrol] 3.5mg/mL-10,000 unit/mL-0.1 % drops,suspension 4 drp ophthalmic (eye) Q12H 5 Days Qty: 5 0RF Rx Instructions: use in left ear sumatriptan succinate 100 mg tablet See Rx Instructions .ROUTE .COMPLEX Qty: 9 0RF Dose Instruction: TAKE 1 TABLET BY MOUTH AT THE ONSET OF HEADACHE. IF NO RELIEF MAY REPEAT 1 TAB AFTER AT LEAST 2 HOURS. MAX OF 2 TABS IN 24 HOURS Rx Instructions: TAKE 1 TABLET BY MOUTH AT THE ONSET OF HEADACHE. IF NO RELIEF MAY REPEAT 1 TAB AFTER AT LEAST 2 HOURS. MAX OF 2 TABS IN 24 HOURS liothyronine 5 mcg tablet 5 mcg PO DAILY acetaminophen [Tylenol Extra Strength] 500 mg Tablet 1,000 mg PO Q6H PRN (Reason: Pain) ciprofloxacin HCl 500 mg tablet 500 mg PO Q12H Qty: 20 0RF oxybutynin chloride 10 mg tablet extended release 24hr 10 mg PO DAILY levothyroxine 112 mcg tablet 112 mcg PO DAILY Discharge Orders: Discharge ED (Routine); Ordered 12/10/24 Ordered By: Jamarcus Najera Referrals: Savannah German FNP [Primary Care Provider] - Patient Instructions: Urinary Tract Infection in Women (ED) Activity Restrictions/Additional Instructions: Take cefdinir as prescribed. Please follow-up with primary care so that you may be referred to endocrinology as we discussed. Return with any new or worsening. 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
[2024-12-10] MEDS: cefdinir 300 MG CAPSULE PO (23:56)
[2024-12-11] VITALS: BP 123/77; PULSE 84; O2SAT 99
[2024-12-11 00:05] VITALS: BP 123/77; PULSE 84; O2SAT 99
== END 2024-12-11 00:12 | disposition home or self-care (01) ==
PROVIDERS: Emergency Medicine; Emergency Provider Physician Assistant; PCP Nurse Practitioner Family
DX: N39.0 Urinary tract infection, site not specified (principal); Z11.52 Encounter for screening for COVID-19; E11.9 Type 2 diabetes mellitus without complications; E78.5 Hyperlipidemia, unspecified; I10 Essential (primary) hypertension
CPT/HCPCS: 36415; 80053; 81001; 85025; 87077; 87086; 87186; 87637; 99283

== ENCOUNTER → 2025-01-06 09:30 | Outpatient (BNVA) | payer MEDICARE, MEDICAID, SELFPAY ==
[2024-07-05 09:16] VITALS: BP 138/89; BMI 47.0
== END ==
PROVIDERS: PCP Nurse Practitioner Family; Visit Provider Nurse Practitioner Family
DX: L82.0 Inflamed seborrheic keratosis (principal); L57.8 Other skin changes due to chronic exposure to nonionizing radiation; L81.4 Other melanin hyperpigmentation; D18.01 Hemangioma of skin and subcutaneous tissue
CPT/HCPCS: 99213

== ENCOUNTER 2025-01-11 16:43 | Emergency (ER) | payer MEDICARE, MEDICAID, SELFPAY ==
[2024-07-05 09:16] VITALS: BP 138/89; BMI 47.0
[2025-01-11 16:48] VITALS: BP 122/58; PULSE 77; RESP 18; TEMP 36.5; O2SAT 99
[2025-01-11 17:52] VITALS: PULSE 59; RESP 16; O2SAT 97
--- NOTE | 2025-01-11 17:52 | W.ED.HA ---
HPI - Headache General: Chief Complaint: Headache Stated Complaint: heachaches Time Seen by Provider: 01/11/25 17:28 History of Present Illness: Patient presents to the ER with complaints of a migraine times last 2 days. She says her whole head hurts as pressure. She also has nausea with vomiting. Patient has been out of her migraine medicine for the last 2 days because she has not been having issues with the pharmacy giving it to her. Patient states this is her standard migraine with no changes. Related Data Home Medications ?Medication ?Instructions ?Recorded ?Confirmed docusate sodium 100 mg capsule 100 mg PO BID PRN Constipation 11/16/19 01/02/25 liothyronine 5 mcg tablet 5 mcg PO DAILY 05/03/20 01/02/25 acetaminophen 500 mg tablet 1,000 mg PO Q6H PRN Pain 10/24/20 01/02/25 (Tylenol Extra Strength) dextromethorphan HBr 5 mg/5 mL 10 mg PO Q4H PRN COUGH AND 07/06/23 01/02/25 oral syrup (Vicks DayQuil Cough) CONGESTION levothyroxine 112 mcg tablet 112 mcg PO DAILY 12/12/23 01/02/25 oxybutynin chloride 10 mg 10 mg PO DAILY 12/12/23 01/02/25 tablet,extended release 24 hr tramadol 50 mg tablet mg PO 03/25/24 01/02/25 semaglutide 0.25 mg or 0.5 mg (2 1 mg SUBCUT .weekly 11/25/24 01/02/25 mg/3 mL) subcutaneous pen injector (Ozempic) Previous Rx's ?Medication ?Instructions ?Recorded levocetirizine 5 mg tablet (Xyzal) 5 mg PO DAILY PRN allergy symptoms 09/21/23 #60 tabs fluconazole 150 mg tablet 150 mg PO Q3D 2 doses #2 tabs 04/05/24 [id number]-mpoonpowl-agpmlqob 3.5 4 drp ophthalmic (eye) Q12H 5 days 04/13/24 mg/mL-10,000 unit/mL-0.1% eye #5 mL drops (Maxitrol) sumatriptan succinate 100 mg tablet See Rx Instructions .Route 06/16/24 .COMPLEX #9 tabs lidocaine 5 % topical ointment 1 applic topical BID PRN pain #30 06/30/24 grams methocarbamol 750 mg tablet 750 mg PO Q8H PRN neck pain #30 08/21/24 tabs buspirone 15 mg tablet 15 mg PO BID #60 tabs 11/25/24 fluoxetine 20 mg capsule (Prozac) 20 mg PO DAILY #30 caps 11/25/24 cephalexin 500 mg capsule 500 mg PO BID #14 caps 01/02/25 Allergies Allergy/AdvReac Type Severity Reaction Status Date / Time lisinopril Allergy Severe Unknown Verified 01/11/25 16:55 Pertussis Vaccines Allergy Severe ALGY-Rash Verified 01/11/25 16:55 Sulfa (Sulfonamide Allergy Severe ALGY-Rash Verified 01/11/25 16:55 Antibiotics) sulfamethoxazole (From Allergy Severe Unknown Verified 01/11/25 16:55 Septra) trimethoprim (From Julra) Allergy Severe Unknown Verified 01/11/25 16:55 adhesive Allergy ALGY-Rash Verified 01/11/25 16:55 ibuprofen Allergy ALGY-Anaphy Verified 01/11/25 16:55 laxis Review of Systems General: Reports: 10 or more systems reviewed and unremarkable except in HPI and below PFSH ED PFSH: Medical History Major depressive disorder, recurrent, moderate Recurrent UTI Urinary tract infection with hematuria Grief reaction Nausea & vomiting Dumping syndrome Dizziness Nausea & vomiting Psychiatric care Tinnitus Borderline intellectual functioning Generalized anxiety disorder Acute serous otitis media of left ear Controlled type 2 diabetes mellitus, without long-term current use of insulin Enrolled in chronic care management Seizure disorder Depression Hypertension Dyslipidemia Obesity Anxiety BHARAT (obstructive sleep apnea) Hypothyroidism GERD (gastroesophageal reflux disease) Surgical History History of placement of ear tubes History of gastric bypass 2020- - [facility] History of colonoscopy with polypectomy (~09/2018) History of laparoscopic cholecystectomy History of esophagogastroduodenoscopy (EGD) (~09/2018) History of hysterectomy with oophorectomy Family History Grandmother Cancer Father , at age 62 Lung disease Diabetes COPD (chronic obstructive pulmonary disease) Mother Rheumatic arteritis Depression Denies family history of Anesthesia complication Bleeding disorder Social History (Reviewed 01/11/25 @ 17:53 by ANDREAS Rubio Smoking and tobacco/nicotine status: never used tobacco/nicotine Second hand smoke exposure: No Alcohol intake: never Substance/Drug Use: never Adopted: No Caregiver/support person: Yes (nurse comes in and sets up her medications) Lives independently: Yes Household members: none Housing: Apartment Marital status: Single Number of children: 0 Highest education level completed: High School Graduate service: No Current occupational status: disabled Current occupational exposures/hazards: No Pets and animals: Yes Pets & animals: cat(s) Leisure activites: art Sexually active: No Do you think of yourself as: Straight/Heterosexual Current gender identity: Female Ania/Scientologist: None Special ania needs: No Agree to transfusion: Yes Physical Exam Const: COMMON NORMALS: no acute distress, average body habitus, patient oriented x3, no limitations, healthy appearing, alert and well nourished HENMT: COMMON NORMALS: normocephalic, atraumatic, hearing grossly normal bilaterally, external ears normal, Normal external nose present, moist oral mucous membranes and oropharynx normal HEAD & SCALP: normocephalic and atraumatic NOSE: Normal external nose present EXTERNAL EAR: Yes external ears normal Eye: COMMON NORMALS: Equal, round and reactive pupils present, EOMs intact bilaterally, conjunctivae normal and no scleral icterus CONJUNCTIVA: Yes conjunctivae normal PUPIL: Yes Equal, round and reactive pupils present Neck/C-Spine: COMMON NORMALS: full ROM, no lymphadenopathy, supple, no meningeal signs, no JVD and Thyroid normal THYROID: Thyroid normal Chest: COMMONS NORMALS: normal inspection of the chest and normal palpation of entire chest wall Resp: COMMON NORMALS: normal respiratory effort, No retractions, No use of accessory muscles and clear to auscultation bilaterally AUSCULTATION: clear to auscultation bilaterally Cardio: COMMON NORMALS: no JVD, regular rate, regular rhythm, S1 normal heart sound present, S2 normal heart sound present, No gallops present (Cardio), No clicks present (Cardio), No murmurs present (Cardio) and No rub (Cardio) RATE: regular rate RHYTHM: regular rhythm HEART SOUNDS: S1 normal heart sound present and S2 normal heart sound present GI: COMMON NORMALS: Normal to inspection, nondistended, normoactive bowel sounds present, Soft to palpation, non-tender, No hepatosplenomegaly present and no masses PALPATION: Yes Soft to palpation and Yes No hepatosplenomegaly present Neuro: COMMON NORMALS: patient oriented x3 SENSORIUM/ORIENTATION: Yes alert MENINGEAL SIGNS: Yes no meningeal signs Course Vital Signs: Vital signs: Vital Signs Temperature 97.7 F 01/11/25 16:48 Pulse Rate 55 L 01/11/25 18:11 Respiratory Rate 16 01/11/25 17:52 Blood Pressure 109/78 01/11/25 18:11 Pulse Oximetry 98 01/11/25 18:11 Oxygen Delivery Me thod Room Air 01/11/25 18:11 MDM - Headache Medical Decision Making Patient was given 6 mg of subcu Imitrex and 10 mg of IM Reglan. This resolved the patient's headache. Patient be discharged. Medical Records I reviewed the patient's medical records. Lab Data I reviewed the patient's lab results. No radiology studies performed this visit Discharge Plan Discharge Patient Disposition: Home Clinical Impression: Migraine Qualifiers: Migraine type: unspecified Status migrainosus presence: without status migrainosus Intractability: not intractable Qualified Code(s): G43.909 - Migraine, unspecified, not intractable, without status migrainosus Condition: Stable Prescriptions: No Action docusate sodium 100 mg capsule 100 mg PO BID PRN (Reason: Constipation) lidocaine 5 % ointment 1 applic topical BID PRN (Reason: pain) Qty: 30 0RF Ozempic 0.25 mg or 0.5 mg (2 mg/3 mL) pen injector 1 mg SUBCUT .weekly methocarbamol 750 mg tablet 750 mg PO Q8H PRN (Reason: neck pain) Qty: 30 0RF buspirone 15 mg tablet 15 mg PO BID Qty: 60 1RF fluoxetine [Prozac] 20 mg capsule 20 mg PO DAILY Qty: 30 1RF Vicks DayQuil Cough 5 mg/5 mL syrup 10 mg PO Q4H PRN (Reason: COUGH AND CONGESTION) levocetirizine [Xyzal] 5 mg tablet 5 mg PO DAILY PRN (Reason: allergy symptoms) Qty: 60 0RF tramadol 50 mg tablet PO fluconazole 150 mg tablet 150 mg PO Q3D Qty: 2 0RF neomycin-polymyxin B-dexameth [Maxitrol] 3.5mg/mL-10,000 unit/mL-0.1 % drops,suspension 4 drp ophthalmic (eye) Q12H 5 Days Qty: 5 0RF Rx Instructions: use in left ear cephalexin 500 mg capsule 500 mg PO BID Qty: 14 0RF sumatriptan succinate 100 mg tablet See Rx Instructions .ROUTE .COMPLEX Qty: 9 0RF Dose Instruction: TAKE 1 TABLET BY MOUTH AT THE ONSET OF HEADACHE. IF NO RELIEF MAY REPEAT 1 TAB AFTER AT LEAST 2 HOURS. MAX OF 2 TABS IN 24 HOURS Rx Instructions: TAKE 1 TABLET BY MOUTH AT THE ONSET OF HEADACHE. IF NO RELIEF MAY REPEAT 1 TAB AFTER AT LEAST 2 HOURS. MAX OF 2 TABS IN 24 HOURS liothyronine 5 mcg tablet 5 mcg PO DAILY acetaminophen [Tylenol Extra Strength] 500 mg Tablet 1,000 mg PO Q6H PRN (Reason: Pain) oxybutynin chloride 10 mg tablet extended release 24hr 10 mg PO DAILY levothyroxine 112 mcg tablet 112 mcg PO DAILY Discharge Orders: Discharge ED (Routine); Ordered 01/11/25 Ordered By: Gene Hagan Referrals: Savannah German FNP [Primary Care Provider] - 1 week Patient Instructions: Headache - Migraine (Adult) Activity Restrictions/Additional Instructions: Activity restrictions/additional instructions: Thank you for choosing [facility] for your healthcare needs today. Please realize that you were seen in the emergency department and that we are providing you with an emergency medical screening exam and this may not be a complete and all exclusive of all testing and/or medical workup we may need to determine your element or severity of your illness. It is very important that you follow-up as instructed with your primary care provider or specialist for the additional evaluation and to discuss your medical treatment plan. You may return to the emergency department should you have concerns or if your condition changes or worsens in any way. Print Language: Frisian Coding Level of Care Code ED Metal Buggy Operator for Robyn Ruiz
[2025-01-11 17:53] VITALS: BP 146/69
[2025-01-11] MEDS: metoclopramide 5 mg/mL SDV 2 mL 10 MG IM (18:10)
[2025-01-11] MEDS: SUMAtriptan 6 mg/0.5 mL SDV SUBCUT (18:10)
[2025-01-11 18:11] VITALS: BP 109/78; PULSE 55; O2SAT 98
[2025-01-11 20:24] VITALS: BP 152/83; PULSE 57; RESP 18; O2SAT 97
== END 2025-01-11 20:13 | disposition home or self-care (01) ==
PROVIDERS: Emergency Provider Emergency Medicine; PCP Nurse Practitioner Family
DX: G43.909 Migraine, unspecified, not intractable, without status migrainosus (principal)
CPT/HCPCS: 96372; 99284; J2765; J3030

== ENCOUNTER 2025-01-28 19:53 | Emergency (ER) | payer MEDICARE, MEDICAID, SELFPAY ==
[2024-07-05 09:16] VITALS: BP 138/89; BMI 47.0
[2025-01-28 20:15] VITALS: BP 152/97; PULSE 71; RESP 16; TEMP 36.7; O2SAT 94; BMI 49.5
--- NOTE | 2025-01-29 00:26 | ED_ITS ---
Documented by User: ANN-MARIE Nichols 01/29/25 00:32 HPI - Wound/Laceration General: Chief Complaint: Wound/Laceration Stated Complaint: Mole on L brest discharing and bleeding Time Seen by Provider: 01/28/25 20:21 Source: patient Mode of arrival: ambulatory Limitations: no limitations History of Present Illness: Patient is a 54-year-old female who presents emergency department complaining of bleeding mole to her left breast. States that she was picking at it and noticed it had some bloody discharge she was concerned for this. States that she has follow-up with primary care on Friday to have this removed, but was concerned of the bleeding she caused. No active bleeding at time of exam. Onset (ago): hour(s) Location: chest (Left breast) Associated symptoms: Denies chills, fever(s), nausea or vomiting Related Data Home Medications ?Medication ?Instructions ?Recorded ?Confirmed docusate sodium 100 mg capsule 100 mg PO BID PRN Const ipation 11/16/19 01/02/25 liothyronine 5 mcg tablet 5 mcg PO DAILY 05/03/2012/12 acetaminophen 500 mg tablet 1,000 mg PO Q6H PRN Pain 1 12/25/19 01/02/25 (Tylenol Extra Strength) dextromethorphan HBr 5 mg/5 mL 10 mg PO Q4H PRN COUGH AND 07/06/23 01/02/25 oral syrup (Vicks DayQuil Cough) CONGESTION levothyroxine 112 mcg tablet 112 mcg PO DAILY 12/12/23 01/02/25 oxybutynin chloride 10 mg 10 mg PO DAILY 12/12/2312/12 tablet,extended release 24 hr tramadol 50 mg tablet mg PO 03/25/24 01/02/25 semaglutide 0.25 mg or 0.5 mg (2 1 mg SUBCUT .weekly 0 11/25/24 01/02/25 mg/3 mL) subcutaneous pen injector (Ozempic) Previous Rx's ?Medication ?Instructions ?Recorded levocetirizine 5 mg tablet (Xyzal) 5 mg PO DAILY PRN a llergy symptoms 09/21/23 #60 tabs fluconazole 150 mg tablet 150 mg PO Q3D 2 doses #2 tab s 04/05/24 [id number] 3.5 4 drp ophthalmic (eye) Q12H 5 days 04/13/24 mg/mL-10,000 unit/mL-0.1% eye #5 mL drops (Maxitrol) sumatriptan succinate 100 mg tablet See Rx Instruction s .Route 06/16/24 .COMPLEX #9 tabs lidocaine 5 % topical ointment 1 applic topical BID TX N pain #30 06/30/24 grams methocarbamol 750 mg tablet 750 mg PO Q8H PRN neck jimmy n #30 08/21/24 tabs buspirone 15 mg tablet 15 mg PO BID #60 tabs fluoxetine 20 mg capsule (Prozac) 20 mg PO DAILY #30 c aps 11/25/24 cephalexin 500 mg capsule 500 mg PO BID #14 caps 01/02 mupirocin 2 % topical ointment 1 applic topical BID #1 5 grams 01/28/25 Allergies Allergy/AdvReac Type Severity Reaction Status Date / Time lisinopril Allergy Severe Unknown Verified 01/11/25 16:55 Pertussis Vaccines Allergy Severe ALGY-Rash Verified 01/11/25 16:55 Sulfa (Sulfonamide Allergy Severe ALGY-Rash Verified 01/11/25 16:55 Antibiotics) sulfamethoxazole (From Allergy Severe Unknown Verified 01/11/25 16:55 Septra) trimethoprim (From Septra) Allergy Severe Unknown Verified 01/11/25 16:55 adhesive Allergy ALGY-Rash Verified 01/11/25 16:55 ibuprofen Allergy ALGY-Anaphy Verified 01/11/25 16:55 laxis Review of Systems General: Reports: 10 or more systems reviewed and unremarkable except in HPI and below Const: Denies: fever(s) or chills Card: Denies: chest pain Resp: Denies: dyspnea GI: Denies: abdominal pain, nausea, vomiting or diarrhea Musc: Denies: extremity pain or joint pain Skin/Breast: Reports: changing lesions (Bleeding mole to left breast); Denies: rash, skin pain or skin tenderness Neuro: Denies: headache(s) PFSH ED PFSH: Medical History Major depressive disorder, recurrent, moderate Recurrent UTI Urinary tract infection with hematuria Grief reaction Nausea & vomiting Dumping syndrome Dizziness Nausea & vomiting Psychiatric care Tinnitus Borderline intellectual functioning Generalized anxiety disorder Acute serous otitis media of left ear Controlled type 2 diabetes mellitus, without long-term current use of insulin Enrolled in chronic care management Seizure disorder Depression Hypertension Dyslipidemia Obesity Anxiety BHARAT (obstructive sleep apnea) Hypothyroidism GERD (gastroesophageal reflux disease) Surgical History History of placement of ear tubes History of gastric bypass History of colonoscopy with polypectomy (~09/2018) History of laparoscopic cholecystectomy History of esophagogastroduodenoscopy (EGD) (~09/2018) History of hysterectomy with oophorectomy Family History Grandmother Cancer Father , at age 62 Lung disease Diabetes COPD (chronic obstructive pulmonary disease) Mother Rheumatic arteritis Depression Denies family history of Anesthesia complication Bleeding disorder Social History Smoking and tobacco/nicotine status: never used tobacco/nicotine Second hand smoke exposure: No Alcohol intake: never Substance/Drug Use: never Adopted: No Caregiver/support person: Yes (nurse comes in and sets up her medications) Lives independently: Yes Household members: none Housing: Apartment Marital status: Single Number of children: 0 Highest education level completed: High School Graduate service: No Current occupational status: disabled Current occupational exposures/hazards: No Pets and animals: Yes Pets & animals: cat(s) Leisure activites: art Sexually active: No Do you think of yourself as: Straight/Heterosexual Current gender identity: Female Ania/Jehovah'S Witness: None Special ania needs: No Agree to transfusion: Yes Physical Exam Const: COMMON NORMALS: no acute distress, average body habitus, patient oriented x3, no limitations, healthy appearing, alert and well nourished HENMT: COMMON NORMALS: normocephalic and atraumatic HEAD & SCALP: normocephalic and atraumatic Neck/C-Spine: COMMON NORMALS: full ROM, no lymphadenopathy, supple and no meningeal signs Resp: COMMON NORMALS: normal respiratory effort, No use of accessory muscles and clear to auscultation bilaterally AUSCULTATION: clear to auscultation bilaterally Cardio: COMMON NORMALS: regular rate and regular rhythm RATE: regular rate RHYTHM: regular rhythm Extremity: COMMON NORMALS: full ROM and capillary refill normal Neuro: COMMON NORMALS: patient oriented x3 SENSORIUM/ORIENTATION: Yes alert MENINGEAL SIGNS: Yes no meningeal signs Skin: COMMON NORMALS: no wounds and turgor normal NARRATIVE SKIN EXAM: There is nevus present to left breast, area of self-induced abrasion, not actively bleeding GENERAL SKIN EXAM: turgor normal Course Vital Signs: Vital signs: Vital Signs Temperature 98.1 F 01/28/25 20:15 Pulse Rate 71 01/28/25 20:15 Respiratory Rate 16 01/28/25 20:15 Blood Pressure 152/97 01/28/25 20:15 Pulse Oximetry 94 01/28/25 20:15 Oxygen Delivery Me thod Room Air 01/28/25 20:15 MDM - Wound/Laceration Medical Decision Making Patient presented for what she was reporting was concern over a bleeding mole to her left breast, this did appear to be self-induced and there was no active bleeding. Also states that she has appointment for removal on Friday, told her to stop picking at it and to follow-up on Friday for removal. Being that there was some surrounding erythema went ahead and prescribed prophylactic bacitracin for staph coverage. No radiology studies performed this visit Discharge Plan Discharge Patient Disposition: Home Clinical Impression: Atypical nevi Condition: Stable Prescriptions: New mupirocin 2 % ointment 1 applic topical BID Qty: 15 0RF No Action docusate sodium 100 mg capsule 100 mg PO BID PRN (Reason: Constipation) lidocaine 5 % ointment 1 applic topical BID PRN (Reason: pain) Qty: 30 0RF Ozempic 0.25 mg or 0.5 mg (2 mg/3 mL) pen injector 1 mg SUBCUT .weekly methocarbamol 750 mg tablet 750 mg PO Q8H PRN (Reason: neck pain) Qty: 30 0RF buspirone 15 mg tablet 15 mg PO BID Qty: 60 1RF fluoxetine [Prozac] 20 mg capsule 20 mg PO DAILY Qty: 30 1RF Vicks DayQuil Cough 5 mg/5 mL syrup 10 mg PO Q4H PRN (Reason: COUGH AND CONGESTION) levocetirizine [Xyzal] 5 mg tablet 5 mg PO DAILY PRN (Reason: allergy symptoms) Qty: 60 0RF tramadol 50 mg tablet PO fluconazole 150 mg tablet 150 mg PO Q3D Qty: 2 0RF neomycin-polymyxin B-dexameth [Maxitrol] 3.5mg/mL-10,000 unit/mL-0.1 % drops,suspension 4 drp ophthalmic (eye) Q12H 5 Days Qty: 5 0RF Rx Instructions: use in left ear cephalexin 500 mg capsule 500 mg PO BID Qty: 14 0RF sumatriptan succinate 100 mg tablet See Rx Instructions .ROUTE .COMPLEX Qty: 9 0RF Dose Instruction: TAKE 1 TABLET BY MOUTH AT THE ONSET OF HEADACHE. IF NO RELIEF MAY REPEAT 1 TAB AFTER AT LEAST 2 HOURS. MAX OF 2 TABS IN 24 HOURS Rx Instructions: TAKE 1 TABLET BY MOUTH AT THE ONSET OF HEADACHE. IF NO RELIEF MAY REPEAT 1 TAB AFTER AT LEAST 2 HOURS. MAX OF 2 TABS IN 24 HOURS liothyronine 5 mcg tablet 5 mcg PO DAILY acetaminophen [Tylenol Extra Strength] 500 mg Tablet 1,000 mg PO Q6H PRN (Reason: Pain) oxybutynin chloride 10 mg tablet extended release 24hr 10 mg PO DAILY levothyroxine 112 mcg tablet 112 mcg PO DAILY Discharge Orders: Discharge ED (Routine); Ordered 01/28/25 Ordered By: Jamarcus Najera Referrals: Savannah German FNP [Primary Care Provider] - Activity Restrictions/Additional Instructions: Apply the topical mupirocin ointment. Follow-up with regular doctor on Friday for removal as we discussed. Avoid itching or irritating the area further. Print Language: Slovak Coding Level of Care Code ED [place] Worker for Chg F[facility] Documented by User: Madan Hatfield DO 01/31/25 06:50 HPI - Wound/Laceration General: Chief Complaint: Wound/Laceration Stated Complaint: Mole on L brest discharing and bleeding Time Seen by Provider: 01/28/25 20:21 Related Data Home Medications ?Medication ?Instructions ?Recorded ?Confirmed docusate sodium 100 mg capsule 100 mg PO BID PRN Const ipation 11/16/19 01/02/25 liothyronine 5 mcg tablet 5 mcg PO DAILY 05/03/2012/12 acetaminophen 500 mg tablet 1,000 mg PO Q6H PRN Pain 1 12/25/19 01/02/25 (Tylenol Extra Strength) dextromethorphan HBr 5 mg/5 mL 10 mg PO Q4H PRN COUGH AND 07/06/23 01/02/25 oral syrup (Vicks DayQuil Cough) CONGESTION levothyroxine 112 mcg tablet 112 mcg PO DAILY 12/12/23 01/02/25 oxybutynin chloride 10 mg 10 mg PO DAILY 12/12/2312/12 tablet,extended release 24 hr tramadol 50 mg tablet mg PO 03/25/24 01/02/25 semaglutide 0.25 mg or 0.5 mg (2 1 mg SUBCUT .weekly 0 11/25/24 01/02/25 mg/3 mL) subcutaneous pen injector ([employer]sempCard[employer]) Previous Rx's ?Medication ?Instructions ?Recorded levocetirizine 5 mg tablet (Xyzal) 5 mg PO DAILY PRN a llergy symptoms 09/21/23 #60 tabs fluconazole 150 mg tablet 150 mg PO Q3D 2 doses #2 tab s 04/05/24 [id number] 3.5 4 drp ophthalmic (eye) Q12H 5 days 04/13/24 mg/mL-10,000 unit/mL-0.1% eye #5 mL drops (Maxitrol) sumatriptan succinate 100 mg tablet See Rx Instruction s .Route 06/16/24 .COMPLEX #9 tabs lidocaine 5 % topical ointment 1 applic topical BID TX N pain #30 06/30/24 grams methocarbamol 750 mg tablet 750 mg PO Q8H PRN neck jimmy n #30 08/21/24 tabs buspirone 15 mg tablet 15 mg PO BID #60 tabs fluoxetine 20 mg capsule (Prozac) 20 mg PO DAILY #30 c aps 11/25/24 cephalexin 500 mg capsule 500 mg PO BID #14 caps 01/02 mupirocin 2 % topical ointment 1 applic topical BID #1 5 grams 01/28/25 Allergies Allergy/AdvReac Type Severity Reaction Status Date / Time lisinopril Allergy Severe Unknown Verified 01/11/25 16:55 Pertussis Vaccines Allergy Severe ALGY-Rash Verified 01/11/25 16:55 Sulfa (Sulfonamide Allergy Severe ALGY-Rash Verified 01/11/25 16:55 Antibiotics) sulfamethoxazole (From Allergy Severe Unknown Verified 01/11/25 16:55 Septra) trimethoprim (From Septra) Allergy Severe Unknown Verified 01/11/25 16:55 adhesive Allergy ALGY-Rash Verified 01/11/25 16:55 ibuprofen Allergy ALGY-Anaphy Verified 01/11/25 16:55 laxis PFSH ED PFSH: Medical History Major depressive disorder, recurrent, moderate Recurrent UTI Urinary tract infection with hematuria Grief reaction Nausea & vomiting Dumping syndrome Dizziness Nausea & vomiting Psychiatric care Tinnitus Borderline intellectual functioning Generalized anxiety disorder Acute serous otitis media of left ear Controlled type 2 diabetes mellitus, without long-term current use of insulin Enrolled in chronic care management Seizure disorder Depression Hypertension Dyslipidemia Obesity Anxiety BHARAT (obstructive sleep apnea) Hypothyroidism GERD (gastroesophageal reflux disease) Surgical History History of placement of ear tubes History of gastric bypass 2020- - History of colonoscopy with polypectomy (~09/2018) History of laparoscopic cholecystectomy History of esophagogastroduodenoscopy (EGD) (~09/2018) History of hysterectomy with oophorectomy Family History Grandmother Cancer Father , at age 62 Lung disease Diabetes COPD (chronic obstructive pulmonary disease) Mother Rheumatic arteritis Depression Denies family history of Anesthesia complication Bleeding disorder Social History Smoking and tobacco/nicotine status: never used tobacco/nicotine Second hand smoke exposure: No Alcohol intake: never Substance/Drug Use: never Adopted: No Caregiver/support person: Yes (nurse comes in and sets up her medications) Lives independently: Yes Household members: none Housing: Apartment Marital status: Single Number of children: 0 Highest education level completed: High School Graduate service: No Current occupational status: disabled Current occupational exposures/hazards: No Pets and animals: Yes Pets & animals: cat(s) Leisure activites: art Sexually active: No Do you think of yourself as: Straight/Heterosexual Current gender identity: Female Ania/Jehovah'S Witness: None Special ania needs: No Agree to transfusion: Yes Course Vital Signs: Vital signs: Vital Signs Temperature 98.1 F 01/28/25 20:15 Pulse Rate 71 01/28/25 20:15 Respiratory Rate 16 01/28/25 20:15 Blood Pressure 152/97 01/28/25 20:15 Pulse Oximetry 94 01/28/25 20:15 Oxygen Delivery Me thod Room Air 01/28/25 20:15 MDM - Wound/Laceration Medical Decision Making Patient presented for what she was reporting was concern over a bleeding mole to her left breast, this did appear to be self-induced and there was no active bleeding. Also states that she has appointment for removal on Friday, told her to stop picking at it and to follow-up on Friday for removal. Being that there was some surrounding erythema went ahead and prescribed prophylactic bacitracin for staph coverage. Chart reviewed Discharge Plan Discharge Patient Disposition: Home Clinical Impression: Atypical nevi Condition: Stable Prescriptions: New mupirocin 2 % ointment 1 applic topical BID Qty: 15 0RF No Action docusate sodium 100 mg capsule 100 mg PO BID PRN (Reason: Constipation) lidocaine 5 % ointment 1 applic topical BID PRN (Reason: pain) Qty: 30 0RF Ozempic 0.25 mg or 0.5 mg (2 mg/3 mL) pen injector 1 mg SUBCUT .weekly methocarbamol 750 mg tablet 750 mg PO Q8H PRN (Reason: neck pain) Qty: 30 0RF buspirone 15 mg tablet 15 mg PO BID Qty: 60 1RF fluoxetine [Prozac] 20 mg capsule 20 mg PO DAILY Qty: 30 1RF Vicks DayQuil Cough 5 mg/5 mL syrup 10 mg PO Q4H PRN (Reason: COUGH AND CONGESTION) levocetirizine [Xyzal] 5 mg tablet 5 mg PO DAILY PRN (Reason: allergy symptoms) Qty: 60 0RF tramadol 50 mg tablet PO fluconazole 150 mg tablet 150 mg PO Q3D Qty: 2 0RF neomycin-polymyxin B-dexameth [Maxitrol] 3.5mg/mL-10,000 unit/mL-0.1 % drops,suspension 4 drp ophthalmic (eye) Q12H 5 Days Qty: 5 0RF Rx Instructions: use in left ear cephalexin 500 mg capsule 500 mg PO BID Qty: 14 0RF sumatriptan succinate 100 mg tablet See Rx Instructions .ROUTE .COMPLEX Qty: 9 0RF Dose Instruction: TAKE 1 TABLET BY MOUTH AT THE ONSET OF HEADACHE. IF NO RELIEF MAY REPEAT 1 TAB AFTER AT LEAST 2 HOURS. MAX OF 2 TABS IN 24 HOURS Rx Instructions: TAKE 1 TABLET BY MOUTH AT THE ONSET OF HEADACHE. IF NO RELIEF MAY REPEAT 1 TAB AFTER AT LEAST 2 HOURS. MAX OF 2 TABS IN 24 HOURS liothyronine 5 mcg tablet 5 mcg PO DAILY acetaminophen [Tylenol Extra Strength] 500 mg Tablet 1,000 mg PO Q6H PRN (Reason: Pain) oxybutynin chloride 10 mg tablet extended release 24hr 10 mg PO DAILY levothyroxine 112 mcg tablet 112 mcg PO DAILY Discharge Orders: Discharge ED (Routine); Ordered 01/28/25 Ordered By: Jamarcus Najrea Referrals: Savannah German FNP [Primary Care Provider] - Activity Restrictions/Additional Instructions: Apply the topical mupirocin ointment. Follow-up with regular doctor on Friday for removal as we discussed. Avoid itching or irritating the area further. Print Language: Slovak Coding Level of Care Code ED [place] Worker for Robyn Ruiz
== END 2025-01-28 21:23 | disposition home or self-care (01) ==
PROVIDERS: Emergency Provider Physician Assistant; PCP Nurse Practitioner Family
DX: D22.5 Melanocytic nevi of trunk (principal); E78.5 Hyperlipidemia, unspecified; E11.9 Type 2 diabetes mellitus without complications; I10 Essential (primary) hypertension
CPT/HCPCS: 99283

== ENCOUNTER → 2025-01-31 12:59 | Outpatient (BNVA) | payer MEDICARE, MEDICAID, SELFPAY ==
[2024-07-05 09:16] VITALS: BP 138/89; BMI 47.0
== END ==
PROVIDERS: PCP Nurse Practitioner Family; Visit Provider Nurse Practitioner Family
DX: L57.8 Other skin changes due to chronic exposure to nonionizing radiation (principal); L81.4 Other melanin hyperpigmentation; D18.01 Hemangioma of skin and subcutaneous tissue; F42.4 Excoriation (skin-picking) disorder; L82.0 Inflamed seborrheic keratosis; L29.89 Other pruritus; R20.8 Other disturbances of skin sensation; Z78.9 Other specified health status; L53.8 Other specified erythematous conditions; R58 Hemorrhage, not elsewhere classified
CPT/HCPCS: 17110; 99213

== ENCOUNTER 2025-03-13 18:39 | Emergency (ER) | payer MEDICARE, MEDICAID, SELFPAY ==
[2024-07-05 09:16] VITALS: BP 138/89; BMI 47.0
[2025-03-13 18:48] VITALS: BP 120/83; PULSE 97; RESP 18; TEMP 35.8; O2SAT 98; BMI 49.7
[2025-03-13 19:56] LABS: Basophils # 0.1 10^3/uL (0.0-0.1); Basophils % 0.7 %; Eosinophils # 0.1 10^3/uL (0.0-0.8); Eosinophils % 1.1 %; Hematocrit 41.6 % (36-47); Lymphocytes # 2.3 10^3/uL (0.8-4.8); Lymphocytes % 28.1 %; Mean Corpuscular HGB Conc 31.5 g/dL (30-55); Mean Corpuscular Hemoglobin 26.4 pg (27-33); Mean Corpuscular Volume 83.9 fl (85-98); Monocytes # 0.5 10^3/uL (0.2-0.9); Monocytes % 5.5 %; Neutrophils # 5.37 10^3/uL (1.8-7.7); Neutrophils % 64.4 %; Nucleated Red Blood Cells % 0 %; Platelet Count 299 10^3/cmm (157-399); Red Blood Count 4.96 10^6/uL (3.85-5.65); Red Cell Distribution Width 13.5 % (12.1-15.1); White Blood Count 8.34 10^3/uL (3.29-11.43)
[2025-03-13 20:11] LABS: Alanine Aminotransferase 18 U/L (0-33); Albumin Level 3.7 g/dL (3.5-5.2); Alkaline Phosphatase 117 U/L (35-105); Anion Gap 17.5 (5-19); Aspartate Amino Transferase 19 U/L (0-32); Blood Urea Nitrogen 14 mg/dL (6-20); Calcium 8.7 mg/dL (8.5-10.5); Carbon Dioxide 22 mmol/L (22-29); Chloride 103 mmol/L (98-107); Creatinine Clr Calc Pharmacy 86.3812; Globulin 3.9 g/dL (1.3-4.6); Glomerular Filtration Rate 52.2 mL/min (90-130); Glucose 175 mg/dL (65-115); Lipase 54 U/L (13-60); Osmolality Calculated 291 mOsm/kg (285-295); Potassium 4.5 mmol/L (3.5-5.1); Sodium 138 mmol/L (136-145); Total Bilirubin 0.2 mg/dL (0.15-1.2); Total Protein 7.6 g/dL (6.6-8.7)
[2025-03-13 20:33] LABS: Bilirubin Urine Negative (Negative); Blood Urine 2+ (Negative); Glucose Urine UA Negative (Normal); Ketones Urine Trace (Negative); Leukocyte Esterase Urine 1+ (Negative); Nitrate Urine Positive (Negative); Protein Urine Negative (Negative); Specific Gravity, Urine 1.023 (1.005-1.030); Urine Appearance Turbid (CLEAR); Urine Color Yellow (Yellow); pH Urine 5.5 (5-7)
[2025-03-13 20:38] LABS: Add Urine Microscopic? YES; Bacteria Urine 4+ /hpf; Hyaline Casts Urine 2.46 /lpf; RBC Urine 21-50 /hpf (0-2); WBC Urine 51-100 /hpf (0-5)
[2025-03-13 20:53] LABS: UA Slide Review UA Slide Review Perf
[2025-03-13 20:56] LABS: Coarse Granular Casts Urine 0-4 /lpf
[2025-03-13 21:03] VITALS: BP 120/62; PULSE 68; O2SAT 99
--- NOTE | 2025-03-13 21:10 | CTR_ITS ---
PROCEDURE INFORMATION: Exam: CT Abdomen And Pelvis Without Contrast Exam date and time: 03/13/2025 9:52 PM Age: 54 years old Clinical indication: Nausea and vomiting; Abdominal pain; Generalized; Prior surgery; Surgery date: 6+ months; Surgery type: Gastric bypass, gb, hysterectomy; Additional info: Hematuria, vomiting, abdominal pain TECHNIQUE: Imaging protocol: Computed tomography of the abdomen and pelvis without contrast. Radiation optimization: All CT scans at this facility use at least one of these dose optimization techniques: automated exposure control; mA and/or kV adjustment per patient size (includes targeted exams where dose is matched to clinical indication); or iterative reconstruction. COMPARISON: CT abdomen pelvis wo con [id number] 06/11/2022 6:59 PM RADIATION DOSE METRICS: Total DLP (mGy-cm): 1310.88 FINDINGS: Liver: Normal. No mass. Gallbladder and biliary ducts: Cholecystectomy. Pancreas: Normal. No ductal dilation. Spleen: Normal. No splenomegaly. Adrenal glands: Normal. No mass. Kidneys and ureters: Normal. No hydronephrosis. Stomach and bowel: Gastric surgical sutures. Moderate constipation. Appendix: No evidence of appendicitis. Intraperitoneal space: Unremarkable. No free air. No significant fluid collection. Vasculature: Unremarkable. No abdominal aortic aneurysm. Lymph nodes: Unremarkable. No enlarged lymph nodes. Urinary bladder: Unremarkable as visualized. Reproductive: Unremarkable as visualized. Bones/joints: Unremarkable. No acute fracture. Soft tissues: Unremarkable. CT/CT kidney stone [id number] IMPRESSION: 1. Negative for acute inflammatory process in the abdomen or pelvis. 2. Gastric surgical sutures. 3. Cholecystectomy. 4. Moderate constipation.
--- NOTE | 2025-03-13 21:15 | W.ED.NAVMDI ---
HPI - Nausea/Vomiting/Diarrhea General: Chief complaint: Nausea/Vomiting/Diarrhea Stated complaint: Vomiting Time Seen by Provider: 03/13/25 20:13 History of Present Illness: 54-year-old female with ongoing vomiting. She has had vomiting for the last week or so. Worse today with several episodes of vomiting. She denies fever. Denies diarrhea. Denies significant belly pain. She has had intermittent belly pain. She was placed on antibiotics last week, and Zofran without improvement she says Related Data Home Medications ?Medication ?Instructions ?Recorded ?Confirmed docusate sodium 100 mg capsule 100 mg PO BID PRN Constipation 11/16/19 03/01/25 liothyronine 5 mcg tablet 5 mcg PO DAILY 05/03/20 03/01/25 acetaminophen 500 mg tablet 1,000 mg PO Q6H PRN Pain 10/24/20 03/01/25 (Tylenol Extra Strength) levothyroxine 112 mcg tablet 112 mcg PO DAILY 12/12/23 03/01/25 oxybutynin chloride 10 mg 10 mg PO DAILY 12/12/23 03/01/25 tablet,extended release 24 hr tramadol 50 mg tablet mg PO 03/25/24 03/01/25 semaglutide 0.25 mg or 0.5 mg (2 1 mg SUBCUT .weekly 11/25/24 03/01/25 mg/3 mL) subcutaneous pen injector (Ozempic) Previous Rx's ?Medication ?Instructions ?Recorded levocetirizine 5 mg tablet (Xyzal) 5 mg PO DAILY PRN allergy symptoms 09/21/23 #60 tabs fluconazole 150 mg tablet 150 mg PO Q3D 2 doses #2 tabs 04/05/24 nzagebqf-rntbampbj-vetulnka 3.5 4 drp ophthalmic (eye) Q12H 5 days 04/13/24 mg/mL-10,000 unit/mL-0.1% eye #5 mL drops (Maxitrol) sumatriptan succinate 100 mg tablet See Rx Instructions .Route 06/16/24 .COMPLEX #9 tabs lidocaine 5 % topical ointment 1 applic topical BID PRN pain #30 06/30/24 grams methocarbamol 750 mg tablet 750 mg PO Q8H PRN neck pain #30 08/21/24 tabs mupirocin 2 % topical ointment 1 applic topical BID #15 grams 01/28/25 buspirone 15 mg tablet 15 mg PO BID #60 tabs 02/21/25 fluoxetine 20 mg capsule (Prozac) 20 mg PO DAILY #30 caps 02/21/25 cefdinir 300 mg capsule 300 mg PO BID 10 days #20 caps 03/01/25 ondansetron 8 mg disintegrating 8 mg PO Q8H PRN nausea and 03/01/25 tablet vomiting 5 days #15 tabs levofloxacin 500 mg tablet 500 mg PO DAILY 7 days #14 tabs 03/13/25 magnesium citrate (OneLAX 296 ml PO DAILY PRN constipation 03/13/25 Magnesium Citrate oral solution) #296 mL metoclopramide HCl 10 mg tablet 10 mg PO Q6H PRN nausea and 03/13/25 (Reglan) vomiting #20 tabs Allergies Allergy/AdvReac Type Severity Reaction Status Date / Time lisinopril Allergy Severe Unknown Verified 03/01/25 16:10 Pertussis Vaccines Allergy Severe ALGY-Rash Verified 03/01/25 16:10 Sulfa (Sulfonamide Allergy Severe ALGY-Rash Verified 03/01/25 16:10 Antibiotics) sulfamethoxazole (From Allergy Severe Unknown Verified 03/01/25 16:10 Septra) trimethoprim (From Septra) Allergy Severe Unknown Verified 03/01/25 16:10 adhesive Allergy ALGY-Rash Verified 03/01/25 16:10 ibuprofen Allergy ALGY-Anaphy Verified 03/01/25 16:10 laxis [facility] ED PFSH: Medical History Major depressive disorder, recurrent, moderate Recurrent UTI Urinary tract infection with hematuria Grief reaction Nausea & vomiting Dumping syndrome Dizziness Nausea & vomiting Psychiatric care Tinnitus Borderline intellectual functioning Generalized anxiety disorder Acute serous otitis media of left ear Controlled type 2 diabetes mellitus, without long-term current use of insulin Enrolled in chronic care management Seizure disorder Depression Hypertension Dyslipidemia Obesity Anxiety BHARAT (obstructive sleep apnea) Hypothyroidism GERD (gastroesophageal reflux disease) Surgical History History of placement of ear tubes History of gastric bypass 2020- chidi- History of colonoscopy with polypectomy (~09/2018) History of laparoscopic cholecystectomy History of esophagogastroduodenoscopy (EGD) (~09/2018) History of hysterectomy with oophorectomy Family History Grandmother Cancer Father , at age 62 Lung disease Diabetes COPD (chronic obstructive pulmonary disease) Mother Rheumatic arteritis Depression Denies family history of Anesthesia complication Bleeding disorder Social History Smoking and tobacco/nicotine status: never used tobacco/nicotine Second hand smoke exposure: No Alcohol intake: never Substance/Drug Use: never Adopted: No Caregiver/support person: Yes (nurse comes in and sets up her medications) Lives independently: Yes Household members: none Housing: Apartment Marital status: Single Number of children: 0 Highest education level completed: High School Graduate service: No Current occupational status: disabled Current occupational exposures/hazards: No Pets and animals: Yes Pets & animals: cat(s) Leisure activites: art Sexually active: No Do you think of yourself as: Straight/Heterosexual Current gender identity: Female Ania/Latter-Day: None Special ania needs: No Agree to transfusion: Yes Physical Exam Const: COMMON NORMALS: no acute distress GENERAL APPEARANCE: cooperative; not ill appearing and not frail appearing HENMT: COMMON NORMALS: normocephalic, atraumatic and Normal external nose present HEAD & SCALP: normocephalic and atraumatic FACE & SINUS: normal facial exam and face symmetric NOSE: Normal external nose present Eye: COMMON NORMALS: Equal, round and reactive pupils present and EOMs intact bilaterally PUPIL: Yes Equal, round and reactive pupils present Neck/C-Spine: GENERAL: Yes trachea midline Chest: CHEST: Yes Symmetrical chest wall rise Resp: COMMON NORMALS: normal respiratory effort, No retractions, No use of accessory muscles and clear to auscultation bilaterally AUSCULTATION: clear to auscultation bilaterally Cardio: COMMON NORMALS: regular rate and regular rhythm RATE: regular rate RHYTHM: regular rhythm GI: COMMON NORMALS: Normal to inspection, nondistended, normoactive bowel sounds present Extremity: COMMON NORMALS: no pedal edema Neuro: KALYAN COMA SCALE: document GCS findings [place] coma scale eye opening: Spontaneous [place] coma scale verbal response: Orientated [place] coma scale motor response: Obey commands [place] coma scale total score: 15 SENSORY EXAM: Yes extremities (intact) Psych: COMMON NORMALS: speech normal SPEECH: Yes normal speech Skin: COMMON NORMALS: no rashes or lesions noted GENERAL SKIN EXAM: no rashes or lesions noted Course Vital Signs: Vital signs: Vital Signs Temperature 96.5 F L 03/13/25 18:48 Pulse Rate 67 03/13/25 22:59 Respiratory Rate 18 03/13/25 22:59 Blood Pressure 122/68 03/13/25 22:59 Pulse Oximetry 96 03/13/25 22:59 Oxygen Delivery Me thod Room Air 03/13/25 21:47 MDM - Nausea/Vomiting/Diarrhea Medical Decision Making Vitals are stable. CBC is normal. Creatinine is 1.1. She has a urinary tract infection with hematuria. CT scan is pending. CT scan is nonacute, but does show constipation. She be treated for UTI and constipation. Return for worsening problems. Outpatient follow-up. Lab Data 03/13/25 19:50 03/13/25 19:50 Radiology Impressions Abdomen/Pelvis CT 03/13/25 21:10 IMPRESSION: 1. Negative for acute inflammatory process in the abdomen or pelvis. 2. Gastric surgical sutures. 3. Cholecystectomy. 4. Moderate constipation. Laboratory Results WBC 8.34 10^3/uL (3.29-11.43) 03/13/25 19:50 RBC 4.96 10^6/uL (3.85-5.65) 03/13/25 19:50 Hgb 13.10 g/dL (11.27-16.99) 03/13/25 19:50 Hct 41.6 % (36-47) 03/13/25 19:50 MCV 83.9 fl (85-98) L 03/13/25 19:50 MCH 26.4 pg (27-33) L 03/13/25 19:50 MCHC 31.5 g/dL (30-55) 03/13/25 19:50 RDW 13.5 % (12.1-15.1) 03/13/25 19:50 Plt Count 299 10^3/cmm (157-399) 03/13/25 19:50 MPV 9.0 fL (7.4-10.4) 03/13/25 19:50 Neut % (Auto) 64.4 % 03/13/25 19:50 Lymph % (Auto) 28.1 % 03/13/25 19:50 [place] % (Auto) 5.5 % 03/13/25 19:50 Eos % (Auto) 1.1 % 03/13/25 19:50 Baso % (Auto) 0.7 % 03/13/25 19:50 Neut # (Auto) 5.37 10^3/uL (1.8-7.7) 03/13/25 19:50 Lymph # (Auto) 2.3 10^3/uL (0.8-4.8) 03/13/25 19:50 [place] # (Auto) 0.5 10^3/uL (0.2-0.9) 03/13/25 19:50 Eos # (Auto) 0.1 10^3/uL (0.0-0.8) 03/13/25 19:50 Baso # (Auto) 0.1 10^3/uL (0.0-0.1) 03/13/25 19:50 Nucleated RBC % (auto) 0 % 03/13/25 19:50 Nucleated RBCs # 0.0 /100WBC 03/13/25 19:50 Sodium 138 mmol/L (136-145) 03/13/25 19:50 Potassium 4.5 mmol/L (3.5-5.1) 03/13/25 19:50 Chloride 103 mmol/L (98-107) 03/13/25 19:50 Carbon Dioxide 22 mmol/L (22-29) 03/13/25 19:50 Anion Gap 17.5 (5-19) 03/13/25 19:50 BUN 14 mg/dL (6-20) 03/13/25 19:50 Creatinine 1.1 mg/dL (0.5-0.9) H 03/13/25 19:50 GFR Calculation 52.2 mL/min (90-130) L 03/13/25 19:50 Glucose 175 mg/dL (65-115) H 03/13/25 19:50 Calculated Osmolality 291 mOsm/kg (285-295) 03/13/25 19:50 Calcium 8.7 mg/dL (8.5-10.5) 03/13/25 19:50 Total Bilirubin 0.2 mg/dL (0.15-1.2) 03/13/25 19:50 AST 19 U/L (0-32) 03/13/25 19:50 ALT 18 U/L (0-33) 03/13/25 19:50 Alkaline Phosphatase 117 U/L (35-105) H 03/13/25 19:50 C-Reactive Protein 3.0 mg/L (0.0-4.9) 03/13/25 19:50 Total Protein 7.6 g/dL (6.6-8.7) 03/13/25 19:50 Albumin 3.7 g/dL (3.5-5.2) 03/13/25 19:50 Globulin 3.9 g/dL (1.3-4.6) 03/13/25 19:50 Lipase 54 U/L (13-60) 03/13/25 19:50 TSH 0.37 uIU/mL (0.27-4.20) 03/13/25 19:50 Urine Color Yellow (Yellow) 03/13/25 20:20 Urine Appearance Turbid (CLEAR) A 03/13/25 20:20 Urine pH 5.5 (5-7) 03/13/25 20:20 Ur Specific [place] 1.023 (1.005-1.030) 03/13/25 20:20 Urine Protein Negative (Negative) 03/13/25 20:20 Urine Glucose (UA) Negative (Normal) 03/13/25 20:20 Urine Ketones Trace (Negative) 03/13/25 20:20 Urine Blood 2+ (Negative) A 03/13/25 20:20 Urine Nitrate Positive (Negative) A 03/13/25 20:20 Urine Bilirubin Negative (Negative) 03/13/25 20:20 Urine Urobilinogen 1.0 mg/dL (Negative) 03/13/25 20:20 Ur Leukocyte Esterase 1+ (Negative) A 03/13/25 20:20 Urine RBC 21-50 /hpf (0-2) H 03/13/25 20:20 Urine WBC 51-100 /hpf (0-5) H 03/13/25 20:20 Ur Squamous Epith Cells 11-20 /hpf (0-5) H 03/13/25 20:20 Amorphous Sediment Not Reportable 03/13/25 20:20 Urine Bacteria 4+ /hpf (NONE) H 03/13/25 20:20 Hyaline Casts 2.46 /lpf 03/13/25 20:20 Coarse Granular Casts 0-4 /lpf H 03/13/25 20:20 All radiology interpretation(s) finalized by discharge Discharge Plan Discharge Patient Disposition: Home Clinical Impression: Recurrent UTI, Vomiting, Constipation Condition: Stable Prescriptions: New levofloxacin 500 mg tablet 500 mg PO DAILY 7 Days Qty: 14 0RF magnesium citrate [OneLAX Magnesium Citrate] Solution 296 ml PO DAILY PRN (Reason: constipation) Qty: 296 0RF metoclopramide HCl [Reglan] 10 mg tablet 10 mg PO Q6H PRN (Reason: nausea and vomiting) Qty: 20 0RF No Action docusate sodium 100 mg capsule 100 mg PO BID PRN (Reason: Constipation) lidocaine 5 % ointment 1 applic topical BID PRN (Reason: pain) Qty: 30 0RF Ozempic 0.25 mg or 0.5 mg (2 mg/3 mL) pen injector 1 mg SUBCUT .weekly methocarbamol 750 mg tablet 750 mg PO Q8H PRN (Reason: neck pain) Qty: 30 0RF levocetirizine [Xyzal] 5 mg tablet 5 mg PO DAILY PRN (Reason: allergy symptoms) Qty: 60 0RF tramadol 50 mg tablet PO fluconazole 150 mg tablet 150 mg PO Q3D Qty: 2 0RF neomycin-polymyxin B-dexameth [Maxitrol] 3.5mg/mL-10,000 unit/mL-0.1 % drops,suspension 4 drp ophthalmic (eye) Q12H 5 Days Qty: 5 0RF Rx Instructions: use in left ear fluoxetine [Prozac] 20 mg capsule 20 mg PO DAILY Qty: 30 1RF buspirone 15 mg tablet 15 mg PO BID Qty: 60 1RF ondansetron 8 mg tablet,disintegrating 8 mg PO Q8H PRN (Reason: nausea and vomiting) 5 Days Qty: 15 0RF cefdinir 300 mg capsule 300 mg PO BID 10 Days Qty: 20 0RF sumatriptan succinate 100 mg tablet See Rx Instructions .ROUTE .COMPLEX Qty: 9 0RF Dose Instruction: TAKE 1 TABLET BY MOUTH AT THE ONSET OF HEADACHE. IF NO RELIEF MAY REPEAT 1 TAB AFTER AT LEAST 2 HOURS. MAX OF 2 TABS IN 24 HOURS Rx Instructions: TAKE 1 TABLET BY MOUTH AT THE ONSET OF HEADACHE. IF NO RELIEF MAY REPEAT 1 TAB AFTER AT LEAST 2 HOURS. MAX OF 2 TABS IN 24 HOURS liothyronine 5 mcg tablet 5 mcg PO DAILY acetaminophen [Tylenol Extra Strength] 500 mg Tablet 1,000 mg PO Q6H PRN (Reason: Pain) mupirocin 2 % ointment 1 applic topical BID Qty: 15 0RF oxybutynin chloride 10 mg tablet extended release 24hr 10 mg PO DAILY levothyroxine 112 mcg tablet 112 mcg PO DAILY Discharge Orders: Discharge ED (Routine); Ordered 03/13/25 Ordered By: Keaton Alexander Referrals: Savannah German FNP [Primary Care Provider] - 4-7 days Patient Instructions: Constipation (ED), Urinary Tract Infection in Women (ED), Opioid Safety, Pain Management, Vomiting - Adult Activity Restrictions/Additional Instructions: You have a urinary tract infection, which can make you feel ill. You also have constipation which can add to the illness and vomiting. Metoclopramide will help your gut motility as well as help with nausea, antibiotics for urinary tract infection, and magnesium citrate for relief of constipation. Call your doctor in the morning for follow-up appointment this week. You should have your urine retested to ensure that it is clearing appropriately. Return for problems. Print Language: Tajik Coding Level of Care Code ED Engine Lathe Tender for Robyn Ruiz
[2025-03-13 21:47] VITALS: BP 143/89; PULSE 63; O2SAT 98
[2025-03-13 21:50] LABS: Thyroid Stimulating Hormone 0.37 uIU/mL (0.27-4.20)
[2025-03-13 22:59] VITALS: BP 122/68; PULSE 67; RESP 18; O2SAT 96
== END 2025-03-13 23:00 | disposition home or self-care (01) ==
PROVIDERS: Emergency Provider Emergency Medicine; PCP Nurse Practitioner Family
DX: N39.0 Urinary tract infection, site not specified (principal); R11.10 Vomiting, unspecified; K59.00 Constipation, unspecified; E78.5 Hyperlipidemia, unspecified; E11.9 Type 2 diabetes mellitus without complications; I10 Essential (primary) hypertension
CPT/HCPCS: 36415; 74176; 80053; 81001; 83690; 84443; 85025; 86140; 99284

== ENCOUNTER 2025-06-11 21:13 | Emergency (ER) | payer MEDICARE, MEDICAID, SELFPAY ==
--- OUTSIDE RECORDS SUMMARY | 2003-11-09 19:00 | XMS_ITS | Continuity of Care Document ---
Author Name [facility] Address [address] [place] [address] Organization [facility] Care Team Providers Care Manager Database Name Role Phone [facility] Unavailable Unavailable Problems Problem Status Onset Date Problem Type Date of Resolution Comments Source Drug-induced obesity (disorder) Active Condition Hypertensive disorder, systemic arterial (disorder) Active Condition Insulin-treated [id number] diabetes mellitus (disorder) Active Condition Obesity (disorder) Active Condition Obstructive sleep apnea syndrome (disorder) Active Condition Severe obesity (disorder) Active Condition Body mass index 40+ - severely obese (finding) Diagnosis Hyperlipidemia (disorder) Diagnosis Gastroesophageal reflux disease without esophagitis (disorder) Diagnosis Long-term current use of insulin (situation) Diagnosis Acquired absence of organ Diagnosis Morbid (severe) obesity due to excess calories Active Diagnosis Allergies, Adverse Reactions, Alerts Substance Category Reaction Severity Reaction type Status Date Reported Comments Source sulfa drugs Assertion Drug allergy Active [facility] Encounters Location Location Details Encounter Type Encounter Number Reason For Visit Attending Provider ADM Date DC Date Status Source [facility] [id number] SOV 1 OF 3 [facility] [id number] SOV 1 OF 3 Monica Chu [facility] [id number] SOV 2 OF 3 [id number] Monica Vlad C[facility] [id number] SOV 2 OF 3 [id number] [facility] [id number] SOV 2 OF 3 [facility]
[2024-07-05 09:16] VITALS: BP 138/89; BMI 47.0
--- OUTSIDE RECORDS SUMMARY | 2025-06-11 21:23 | XMS_ITS | Encounter Summary ---
Author Organization [facility] Address [address] [place] [address] Care Team Providers Care Unscrambler Name Role Phone Kalli Lyons DO Primary Care Provider [phone] Encounter Details Date Type Department Care Team (Latest Contact Info) Description 03/04/2001 Outpatient Historical [facility] [place] [facility] 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
--- OUTSIDE RECORDS SUMMARY | 2025-06-11 21:23 | XMS_ITS | Clinical Summary ---
Author Organization [facility] [place] Address [address] [place] [address] Phone Care Team Providers Care Stock Control Clerk Name Role Phone Kalli Lyons DO Primary Care Provider Allergies Active Allergy Reactions Criticality Noted Date Comments Amoxicillin Rash Low 02/06/2017 Amoxicillin-Pot Clavulanate Rash Low 02/07/20 17 Pertussis Vaccines Rash Low 02/06/2017 Sulfa (Sulfonamide Antibiotics) Hives High 01/10 Medications simvastatin (ZOCOR) 20 mg tablet Take 20 mg by mouth daily at bedtime. Active hydrOXYzine pamoate (VISTARIL) 25 mg capsule Take 25 mg by mouth 2 times daily as needed for Itching. Active busPIRone (BUSPAR) 15 mg Tablet Take 15 mg by mouth 2 times daily. Active metoclopramide HCl (REGLAN) 5 mg tablet Take 5 mg by mouth 2 times daily. Active docusate sodium (COLACE) 100 mg capsule Take 100 mg by mouth 2 times daily. Active pantoprazole (PROTONIX) 40 mg Tablet, Delayed Release (E.C.) Take 40 mg by mouth 3 times daily. Active Accu-Chek Leeann Plus test strp StripIndications: Type 2 diabetes mellitus with diabetic peripheral angiopathy without gangrene, without long-term current use of insulin ([facility]) USE 1 STRIP TO CHECK GLUCOSE ONCE DAILY 0 Active hydroCHLOROthiazi de 25 mg tabletIndications :Lower leg edema Take 1/2 tab daily PRN for lower leg edema. 15 Tablet 1 1 Active fluticasone propionate (FLONASE) 50 mcg/spray [place], Suspension nasal inhalerIndication s:Middle ear effusion, bilateral Administer 2 Sprays in each nostril daily. 16 Gram 5 1 Active losartan (COZAAR) 50 mg tabletIndications :Essential hypertension Take 1 Tablet (50 mg) by mouth daily. 90 Tablet 3 1 Active LEVOTHYROXINE 100 mcg tabletIndications :Primary hypothyroidism,Hy povitaminosis D,Morbid obesity with body mass index of 50 or higher (CMS/HCC) TAKE 1 TABLET BY MOUTH ONCE DAILY IN THE COMPARATIVE SOCIOLOGY PROFESSOR 90 Tablet 1 Active liothyronine (CYTOMEL) 5 mcg TabletIndications :Primary hypothyroidism,Hy povitaminosis D,Morbid obesity with body mass index of 50 or higher (CMS/HCC) Take 1 tablet by mouth once daily 90 Tablet 1 Active empagliflozin (Jardiance) 10 mg tabletIndications :Type 2 diabetes mellitus with diabetic peripheral angiopathy without gangrene, without long-term current use of insulin ([facility]) Take 1 Tablet (10 mg) by mouth daily in the morning. 90 Tablet 4 1 Active montelukast (SINGULAIR) 10 mg tablet Take 1 Tablet (10 mg) by mouth daily at bedtime. 90 Tablet 4 1 Active PARoxetine HCl (PAXIL) 20 mg tabletIndications :Primary hypothyroidism,Hy povitaminosis D Take 1 tablet by mouth once daily 90 Tablet 3 1 Active Active Problems Problem Noted Date Diagnosed Date Morbid obesity with body mass index of 50 or hig her 06/12/2017 Primary hypothyroidism 02/06/2017 Hypovitaminosis D 02/06/2017 Sleepiness 02/06/2017 Feeling poorly 02/06/2017 Resolved Problems Problem Noted Date Diagnosed Date Resolved Date Thyroid cyst 02/06/2017 02/06/2017 Thyroid atrophy 02/06/2017 01/14/2018 Immunizations Immunization Administration Dates Next Due (TDVAX)(7 YRS UP) TETANUS AN D DIPHTHERIA TOXOIDS, ADSORBED (2 LF OF TETANUS TOXOID AND 2 LF OF DIPHTHERIA TOXOID), 0.5ML (PF), IM 04/15/2002 Social History Tobacco Use Types Packs/Day Years Used Date Smoking Tobacco: Never Smokeless Tobacco: Never Tobacco Cessation:Counseling Given: Yes Alcohol Use Standard Drinks/Week Comments Not Currently 0 (1 standard drink = 0.6 oz pur e alcohol) Comments No Sex and Gender Information Value Date Recorded Sex Assigned at Not on file Legal Sex Female 3:36 AM VISUAL EFFECTS ARTIST Gender Identity Not on file Sexual Orientation Not on file Last Filed Vital Signs Vital Sign Reading Time Taken Comments Blood Pressure 120/82 03/19/2021 9:59 AM CDT Pulse 96 03/19/2021 9:59 AM CDT Temperature 36.1 C (97 F) 03/19/2021 9:59 AM CDT Respiratory Rate 18 09/29/2020 12:52 AM VISUAL EFFECTS ARTIST Oxygen Saturation 97% 03/19/2021 9:59 AM CDT Inhaled Oxygen Concentration - - Weight 150.6 kg (332 lb) 03/19/2021 9:59 AM CDT Height 167.6 cm (5' 6 ) 03/19/2021 9:59 AM CDT Body Mass Index 53.59 03/19/2021 9:59 AM CDT Plan of Treatment Health Maintenance Due Date Last Done Comments DIABETES ANNUAL FOOT EXAM 1990 DIABETES MICROALBUMIN ANNUAL SCREEN 1990 FIT/ DNA Q 3 YEARS (AUTO ORDER) 1990 FIT/FOBT Q 1 YEAR (AUTO ORDER) 1990 FLEX SIG/CT COLONOGRAPHY Q 5 YEARS (AUTO ORDER) 1990 HEPATITIS B VACCINES (1 of 3 - 19+ 3-dose series) 1991 HPV/Cotest (21-29) 1993 CERVICAL CANCER SCREENING 2002 HPV/Cotest (30-65) 2002 PAP SMEAR 2002 DTAP/TDAP/TD VACCINES (1 - Tdap) 04/16/2002 04/15/20 02 COLORECTAL CANCER SCREENING (AUTO ORDER) 2017 COLORECTAL SCREENING 2017 Colorectal Cancer Screening (AUTO ORDER) 2017 Colorectal Cancer Screening 2017 FIT-DNA Q 3 years 2017 FIT/FOBT Q 1 year 2017 Flex Sig/CT Colonography Q 5 years 2017 LDL CHOLESTEROL ANNUAL 08/31/2021 08/31/2020 DIABETES HBA1C Q 6 MONTHS 09/19/20212020, 12/12/2020, 01/04/2020, Additional history exists ZOSTER VACCINE (1 of 2) 2022 BREAST CANCER SCREENING 09/23/2024 09/23/2023 Medicare Advantage (ME) Preventative Visit/Annual Wellness Visit 11/10/2024 01/22/2021 INFLUENZA VACCINE (#1) 2025 01/04/2021 DIABETES ANNUAL RETINAL EXAM 02/01/2026, 02/22/2021, 12/15/2017 Procedures Procedure Name Priority Date/Time Associated Diagnosis Comments HEMOGLOBIN A1C Routine 03/19/2021 12:17 PM CDT Type 2 diabetes mellitus with hyperglycemia, with long-term current use of insulin ([facility]) LIPID PANEL Routine 08/31/2020 from Last 3 Months or Most Recently Relevant to Health Maintenance Results * (ABNORMAL) HEMOGLOBIN A1C (03/19/2021 12:17 PM CDT) Pathologist [facility] HEMOGLOBIN A1C 6.6(H) <=5.6 % 03/21/2021 1:02 PM CDT [facility] EST. AVG GLUCOSE, A1C 143 mg/dL 03/21/2021 1:02 PM CDT [facility] Blood Venipuncture / Unknown 03/19/2021 12:17 PM CDT 03/19/2021 12:17 PM CDT Narrative [facility] - 03/21/2021 1:02 PM CDT HGB A1C INTERPRETATION NORMAL: <5.7% PRE-DIABETES: 5.7 - 6.4% DIABETES: 6.5% OR GREATER us Jenna JACOBSEN CHEMISTRY ORDERABLES Final Re sult [facility] [address] [place] [address] * LIPID PANEL (08/31/2020) Pathologist [facility] ABSTRACTED CHOLESTEROL 175 EXTERNAL LAB ABSTRACTED TRIGLYCERIDE 326 EXTERNAL LAB ABSTRACTED HDL 38 EXTERNAL LAB ABSTRACTED LDL CALCULATED 72 EXTERNAL LAB CHOLESTEROL EXTERNAL LAB TRIGLYCERIDE EXTERNAL LAB HDL EXTERNAL LAB LDL CALCULATED EXTERNAL LAB Blood 08/31/2020 us Abstract Sp[facility] Provider CHEMISTRY ORDERABLES Final Result EXTERNAL LAB from Last 3 Months or Most Recently Relevant to Health Maintenance Insurance MEDICAID [facility] DUAL COMPLETE [facility] PPO D-SNP Care Teams Stock Control Clerk Relationship Specialty Start Date End Date Kalli Lyons DO [address] [place] [address] PCP - General Family Practice 09/17/20
--- OUTSIDE RECORDS SUMMARY | 2025-06-11 21:23 | XMS_ITS | Clinical Summary ---
Author Organization [facility] Alberto elias Van Wert Address [address] [place] [address] Phone Care Team Providers Care Gold Assayer Name Role Phone Kalli Lyons Primary Care Provider Allergies Active Allergy Reactions Criticality Noted Date Comments Amoxicillin Rash Low 02/06/2017 Amoxicillin-Pot Clavulanate Rash Low 02/06/2017 Ibuprofen Other (See Comments) 07/16/2022 Lisinopril Unknown High 07/16/2022 Nsaids (Non-Steroidal Anti-Inflammatory Drug) Other (See Comments) 05/18/2021 Hx of Gastric Bypass Pertussis Vaccines Rash Low 02/06/2017 Sulfa (Sulfonamide Antibiotics) Hives High 02/06/2017 Trimethoprim Unknown High 07/16/2022 Medications docusate sodium (COLACE) 100 mg capsule Take 100 mg by mouth 2 times daily. 05/04/20 20 Active busPIRone (BUSPAR) 15 mg Tablet Take 15 mg by mouth 3 times daily. Active lancets Use to check blood sugars one time daily in the morning. E11.65 100 Each 3 09/28/20 21 Active diphenhydrAMINE (BENADRYL) 12.5 mg/5 mL solutionIndication s:Rash Take 5 mL (12.5 mg) by mouth every 6 hours as needed for Itching. 100 mL 1 12/12/19 22 Active Additional Information Patient not taking.Reported on 03/30/2025 CPAP / BIPAP suppliesIndication s:BHARAT (obstructive sleep apnea) Length of need: 99 months Mask Type: full face with headgear every 6 months, mask only every 3 months,1 cushions per month. Tubing: heated 1 every 3 months, water chamber 1 every 6 months, chin strap 1 every 6 months, filters disposable 2 per month, filters reusable 1 per 6 months. 1 Each 03/29/20 22 Active Additional Information Patient not taking.Reported on 03/30/2025 hydrOXYzine pamoate (VISTARIL) 50 mg capsule TAKE 1 CAPSULE BY MOUTH THREE TIMES DAILY NEEDED FOR ANXIETY 04/04/20 22 Active FLUoxetine (PROzac) 20 mg capsule Take 20 mg by mouth daily in the morning. 03/04/20 23 Active traMADoL (ULTRAM) 50 mg tabletIndications: Compression fracture of L3 vertebra, initial encounter ([facility]),Chronic bilateral low back pain without sciatica Take 1 Tablet (50 mg) by mouth 2 times daily as needed for Pain. 60 Tablet 09/16/20 23 Active Miscellaneous Medical SupplyIndications: DDD (degenerative disc disease), lumbar,Chronic bilateral low back pain without sciatica,History of falling Grab bar for bathtub 1 Each 06/24/20 24 Active liothyronine (CYTOMEL) 5 mcg TabletIndications: Primary hypothyroidism Take 1 tablet by mouth once daily 90 Tablet 1 07/01/20 24 Active CHOLECALCIFEROL, VITAMIN D3, ORAL Take 1 Tablet by mouth daily. Active ofloxacin (FLOXIN) 0.3 % Drops Administer 10 Drops in both ears 2 times daily. 10 mL 08/24/20 24 Active Additional Information Patient not taking.Reported on 03/30/2025 DAPTOmycin (CUBICIN) 500 mg Recon Soln vial 10/26/20 24 Active ondansetron (ZOFRAN ODT) 4 mg Tablet, Rapid Dissolve Place 1 Tablet (4 mg) under tongue every 8 hours as needed for Nausea/Emesis. Dissolve tablet on top of tongue, then swallow with saliva. 10 Tablet 10/26/20 24 Active methocarbamoL (ROBAXIN) 750 mg tabletIndications: Degeneration of intervertebral disc of lumbar region with discogenic back pain Take 1 Tablet (750 mg) by mouth 3 times daily as needed for Spasm. 90 Tablet 3 11/09/20 24 Active oxyBUTYnin (DITROPAN XL) 10 mg Extended Release 24 hour tabletIndications: Overactive bladder Take 1 tablet by mouth once daily 90 Tablet 3 11/22/19 25 Active levocetirizine (XYZAL) 5 mg tabletIndications: Environmental and seasonal allergies TAKE 1 TABLET BY MOUTH ONCE DAILY LATE IN THE DAY 90 Tablet 3 12/24/19 25 Active loperamide (IMODIUM) 2 mg capsuleIndications :Chronic diarrhea Take 1 Capsule (2 mg) by mouth every 3 hours as needed for Diarrhea/Loose Stools. 60 Capsule 2 02/10/20 25 Active dicyclomine (BENTYL) 20 mg tabletIndications: Irritable bowel syndrome with both constipation and diarrhea TAKE 1 TABLET BY MOUTH 4 TIMES DAILY BEFORE MEAL(S) AND AT BEDTIME 360 Tablet 3 03/15/20 25 Active metoclopramide HCl (REGLAN) 10 mg tablet 03/14/20 25 Active mupirocin (BACTROBAN) 2 % Ointment apply topically twice a day 02/03/20 25 Active azelastine (ASTELIN) 137 mcg/actuation nasal spray Administer 2 Sprays in each nostril 2 times daily. 1 mL 11 03/15/20 25 Active fluticasone propionate (FLONASE) 50 mcg/spray Marshall, Suspension nasal inhaler Administer 2 Sprays in each nostril daily. 16 Gram 11 03/15/20 25 Active rimegepant (Nurtec ODT) 75 mg Tablet, Rapid Dissolve Take 1 Tablet (75 mg) by mouth 1 time daily as needed (Migraine headache). 30 Tablet 11 03/30/20 25 Active semaglutide (Ozempic) 2 mg/dose (8 mg/3 mL) Pen InjectorIndication s:Type 2 diabetes mellitus without complication, without long-term current use of insulin ([facility]) Inject 2 mg by subcutaneous injection every 7 days. 9 mL 3 03/30/20 25 Active levothyroxine 112 mcg tabletIndications: Primary hypothyroidism TAKE 1 TABLET BY MOUTH ONCE DAILY IN THE MORNING 100 Tablet 2 05/04/20 25 Active Active Problems Problem Noted Date Diagnosed Date Total Hysterectomy 03/30/2025 Lipoedema 03/30/2025 Migraine with aura and witho ut status migrainosus, not intractable 01/25/2025 Bilateral chronic otorrhea 11/09/2024 Type 2 diabetes mellitus wit hout complication, without long-term current use of insulin 04/01/2022 Overview (04/01/2022): Added per 5..2021 PVQ Recurrent major depressive disorder, in partial remission 03/29/2022 BHARAT (obstructive sleep apnea) 03/28/2022 Hot flashes 03/01/2022 History of bariatric surgery 09/21/2021 Morbid obesity with body mass index of 50 or hig her 06/12/2017 Primary hypothyroidism 02/06/2017 Hypovitaminosis D 02/06/2017 Resolved Problems Problem Noted Date Diagnosed Date Resolved Date Declined influenza vaccine 08/27/2024 0 01/25/2025 Type 2 diabetes mellitus wit h hyperglycemia, without long-term current use of insulin 09/21/2021 07/13/2024 Thyroid cyst 02/06/2017 02/06/2017 Thyroid atrophy 02/06/2017 01/14/2018 Sleepiness 02/06/2017 03/01/2022 Feeling poorly 02/06/2017 03/01/2022 Encounters Date Type Department Care Team Description 05/31/2025 External Device Data STL ABSTRACTION Provider, Abstract 05/31/2025 External Device Data STL ABSTRACTION Provider, Abstract 05/10/2025 External Device Data STL ABSTRACTION Provider, Abstract 05/04/2025 Refill [facility] [address] [place] [address] Savannah German FNP Primary hypothyroidism 05/03/2025 1:30 PM CDT Office Visit [facility] Podiatry-Alberto Borjas [address] [place] [phone] Konstantin Richard DPM Left foot pain (Primary Dx); DM type 2 with diabetic peripheral neuropathy (CMS/HCC); Calcaneal spur of left foot 05/03/2025 1:00 PM CDT Ancillary Procedure [facility] Imaging Services-Alberto Borjas [address] [place] [phone] Konstantin Richard DPM Left foot pain 05/03/2025 External Device Data STL ABSTRACTION Provider, Abstract 04/26/2025 External Device Data STL ABSTRACTION Provider, Abstract 04/21/2025 Telephone [facility] [address] [place] [address] Kalli Lyons DO Provider Call 04/12/2025 External Device Data STL ABSTRACTION Provider, Abstract 04/11/2025 Telephone [facility] [address] [place] [address] Savannah German FNP Primary Care Outreach (PA for [facility] sent on 04/11/2025 ) 04/05/2025 Orders Only [facility] [address] [place] [address] Savannah German FNP Heel spur, left (Primary Dx); Chronic pain of left ankle 03/31/2025 Results Follow-Up [facility] [address] [place] [address] Savannah German FNP HEMOGLOBIN A1C, URIC ACID, CBC WITH DIFFERENTIAL, Additional followed-up results: 2 03/30/2025 2:18 PM CDT - 03/30/2025 11:59 PM CDT Hospital Encounter [facility] [address] [place] [phone] Savannah German FNP Discharge Disposition: Home or Self Care 03/30/2025 2:00 PM CDT Office Visit [facility] [address] [place] [address] Savannah German FNP Type 2 diabetes mellitus without complication, without long-term current use of insulin ([facility]) (Primary Dx); Migraine with aura and without status migrainosus, not intractable; Total Hysterectomy; Lipoedema; Chronic pain of left ankle 03/15/2025 1:30 PM CDT Office Visit [facility] Ear, Nose and Throat [place] [address] [place] [address] Solis Merritt MD Chronic otitis media of left ear with effusion (Primary Dx); Sensorineural hearing loss (SNHL) of both ears 03/15/2025 1:00 PM CDT Procedure visit [facility] Audiology [address] [place] [address] [place] [address] Michelle Valdovinos AU.D Sensorineural hearing loss (SNHL), bilateral (Primary Dx) 03/15/2025 External Device Data STL ABSTRACTION Provider, Abstract 03/15/2025 External Device Data STL ABSTRACTION Provider, Abstract 03/15/2025 Refill [facility] Family Medicine [place] [address] [place] [address] Kalli Lyons, Irritable bowel syndrome with both constipation and diarrhea from Last 3 Months Immunizations Immunization Administration Dates Next Due (TDVAX)(7 YRS UP) TETANUS AN D DIPHTHERIA TOXOIDS, ADSORBED (2 LF OF TETANUS TOXOID AND 2 LF OF DIPHTHERIA TOXOID), 0.5ML (PF), IM 04/15/2002 Family History Medical History Relation Name Comments Cancer Maternal Aunt Relation Name Status Comments Maternal Aunt Social History Tobacco Use Types Packs/Day Years Used Date Smoking Tobacco: Never Passive Smoke Exposure: Never Smokeless Tobacco: Never Tobacco Cessation:Counseling Given: Not Answered Alcohol Use Standard Drinks/Week Comments Not Currently 0 (1 standard drink = 0.6 oz pur e alcohol) Comments No Sex and Gender Information Value Date Recorded Sex Assigned at Not on file Legal Sex Female 12:36 AM [employer] Gender Identity Not on file Sexual Orientation Not on file Last Filed Vital Signs Vital Sign Reading Time Taken Comments Blood Pressure 136/74 03/30/2025 1:20 PM CDT Pulse 66 05/03/2025 1:28 PM CDT Temperature 36.4 C (97.6 F) 03/30/2025 1:20 PM CDT Respiratory Rate 18 03/30/2025 1:20 PM CDT Oxygen Saturation 97% 05/03/2025 1:28 PM CDT Inhaled Oxygen Concentration - - Weight 139.3 kg (307 lb) 05/03/2025 1:28 PM CDT Height 167.6 cm (5' 6 ) 05/03/2025 1:28 PM CDT Body Mass Index 49.55 05/03/2025 1:28 PM CDT Plan of Treatment Upcoming Encounters Date Type Department Care Team (Late st Contact Info) Description 06/14/2025 2:00 PM CDT Office Visit [facility] Ear, Nose and Throat [address] [place] [address] [place] [phone] Solis Merritt MD [address] [place] [address] 07/01/2025 1:00 PM CDT Office Visit [facility] Family Medicine [place] [address] [place] [address] [facility] [address] [place] [address] 08/11/2025 2:10 PM CDT Office Visit [facility] Endocrinology [facility] [place] [place] [address] [place] [address] Kaylan Quijano MD [address] [place] [address] Health Maintenance Due Date Last Done Comments FIT/FOBT Q 1 YEAR (AUTO ORDER) 1990 HEPATITIS B VACCINES (1 of 3 - 19+ 3-dose series) 1991 DTAP/TDAP/TD VACCINES (1 - Tdap) 04/16/2002 04/15/20 02 COLORECTAL CANCER SCREENING (AUTO ORDER) 2017 COLORECTAL SCREENING 2017 FIT/FOBT Q 1 year 2017 Flex Sig/CT Colonography Q 5 years 2017 ZOSTER VACCINE (1 of 2) 2022 DIABETES ANNUAL FOOT EXAM 08/20/2023 08/20/2022 TEENA uACR (Auto Order) 11/10/2024 07/13/2024 , 09/03/2023, 08/20/2022 [place] ([place]) Preventative Visit/Annual Wellness Visit 11/10/2024 08/20/2022 INFLUENZA VACCINE (#1) 2025 5, 08/27/2024, 09/03/2023, Additional history exists DIABETES MICROALBUMIN ANNUAL SCREEN 07/13/2025 07/13/2024, 09/03/2023, 08/20/2022 LDL CHOLESTEROL ANNUAL 07/13/2025 4, 09/03/2023, 03/12/2023, Additional history exists Colorectal Cancer Screening 09/11/2025 FIT-DNA Q 3 years 09/11/2025 09/11/2022 FIT/ DNA Q 3 YEARS (AUTO ORDER) 09/11/2025 2, 09/11/2022 DIABETES HBA1C Q 6 MONTHS 09/30/20252024, 11/09/2024, 07/13/2024, Additional history exists DIABETES ANNUAL RETINAL EXAM 02/01/2026, 08/27/2024, 12/21/2021, Additional history exists BREAST CANCER SCREENING 02/08/2026 02/08/2025, 09/23 DIABETES: A1C (Auto Order) 03/30/202603/30, 11/09/2024, 07/13/2024, Additional history exists Colorectal Cancer Screening (AUTO ORDER) 09/11/2027 FLEX SIG/CT COLONOGRAPHY Q 5 YEARS (AUTO ORDER) 09/11/2027 09/11/2022, 09/11/2022 KHE eGFR (Auto Order) Completed 03/30/2025 , 10/25/2024, 10/18/2024, Additional history exists Procedures Procedure Name Priority Date/Time Associated Diagnosis Comments XR FOOT 3+ VW LEFT Routine 05/03/2025 1: 09 PM CDT Left foot pain XR ANKLE 3+ VW LEFT Routine 03/30/2025 2 :28 PM CDT Chronic pain of left ankle COMPREHENSIVE METABOLIC PANEL Routine 03/30/2025 1:42 PM CDT Type 2 diabetes mellitus without complication, without long-term current use of insulin ([facility]) CBC WITH DIFFERENTIAL Routine 03/30/2025 1:42 PM CDT Type 2 diabetes mellitus without complication, without long-term current use of insulin (CMS/HCC) URIC ACID Routine 03/30/2025 1:42 PM CDT Chronic pain of left ankle HEMOGLOBIN A1C Routine 03/30/2025 1:42 PM CDT Type 2 diabetes mellitus without complication, without long-term current use of insulin (CMS/HCC) KS TYMPANOMETRY Routine 03/15/2025 2:53 PM CDT Sensorineural hearing loss (SNHL), bilateral KS SPEECH AUDIOMETRY THRESHOLD SPEECH RECOGNIJ Routine 03/15/2025 2:53 PM CDT Sensorineural hearing loss (SNHL), bilateral KS PURE TONE AUDIOMETRY AIR ONLY Routine 03/15/2025 2:53 PM CDT Sensorineural hearing loss (SNHL), bilateral MAMMO 3D IGOR SCREEN BILAT W OR WO CAD Routine 02/08/2025 1:51 PM CDT Screening mammogram, encounter for HM DIABETES EYE EXAM Routine 02/01/2025 10:07 AM CDT MICROALBUMIN/CREATININ E RATIO, RANDOM UR Routine 07/13/2024 1:41 PM CDT Controlled type 2 diabetes mellitus without complication, without long-term current use of insulin (CMS/HCC) LIPID PANEL Routine 07/13/2024 1:41 PM CDT Morbid obesity with body mass index of 50 or higher (CMS/HCC) Controlled type 2 diabetes mellitus without complication, without long-term current use of insulin (CMS/HCC) COLON CANCER SCREEN, STOOL DNA Routine 09/11/2022 8:24 PM CDT Screening for colon cancer from Last 3 Months or Most Recently Relevant to Health Maintenance Results * XR FOOT 3+ VW LEFT (05/03/2025 1:09 PM CDT) Anatomical Region Laterality Modality Ankle / Foot Computed Radiogr aphy Impressions 05/03/2025 1:09 PM CDT AP lateral and oblique views of the left foot are reviewed. Slight hallux valgus is noted. No obvious fractures are noted. Mild degenerative change throughout midfoot joints is noted. There is plantar posterior calcaneal spurring noted. Hammering of digits is noted. There is some degenerative change throughout midfoot with some dorsal spurring. Significant soft tissue edema noted. Konstantin Richard DPM DIAGNOSTIC IMAGING ORDERABLES Fi nal Result * XR ANKLE 3+ VW LEFT (03/30/2025 2:28 PM CDT) Anatomical Region Laterality Modality Ankle / Foot Computed Radiogr aphy 03/30/2025 2:28 PM CDT Impressions 04/01/2025 8:41 AM CDT IMPRESSION: See below. Exam: XR ANKLE 3+ VW LEFT Date/Time of Exam: 03/30/2025 2:28 PM Reason For Exam: See Diagnosis. Diagnosis: Chronic pain of left ankle; Chronic pain of left ankle. Findings: Comparison: None Moderate posterior calcaneal enthesophyte. Large infracalcaneal spur. There is no evidence of acute fracture or dislocation. The ankle mortise is intact. Moderate change of the midfoot. Soft tissue prominence of the anterior medial aspect of the ankle may be partially constitutional. No soft tissue gas and five. IMPRESSION: 1. No acute fracture or dislocation is identified. 2. Ankle joint is well-maintained. 3. Mild degenerative change of midfoot. 4. Moderate posterior calcaneal enthesophyte. Large infracalcaneal spur. Narrative Procedure Note Gabriele Granados MD - 04/01/2025 IMPRESSION: See below. Exam: XR ANKLE 3+ VW LEFT Date/Time of Exam: 03/30/2025 2:28 PM Reason For Exam: See Diagnosis. Diagnosis: Chronic pain of left ankle; Chronic pain of left ankle. Findings: Comparison: None Moderate posterior calcaneal enthesophyte. Large infracalcaneal spur. There is no evidence of acute fracture or dislocation. The ankle mortise is intact. Moderate change of the midfoot. Soft tissue prominence of the anterior medial aspect of the ankle may be partially constitutional. No soft tissue gas and five. IMPRESSION: 1. No acute fracture or dislocation is identified. 2. Ankle joint is well-maintained. 3. Mild degenerative change of midfoot. 4. Moderate posterior calcaneal enthesophyte. Large infracalcaneal spur. Savannah German [employer] DIAGNOSTIC IMAGING ORDERAB LES Final Result * (ABNORMAL) CBC WITH DIFFERENTIAL (03/30/2025 1:42 PM CDT) WBC 7.7 3.8 - 10.8 Thousand/u L [facility] RBC 5.00 3.80 - 5.10 Million/uL [facility] HEMOGLOBIN 13.4 11.7 - 15.5 g/dL [facility] HEMATOCRIT 42.1 35.0 - 45.0 % [facility] MCV 84.2 80.0 - 100.0 fL [facility] MCH 26.8(L) 27.0 - 33.0 pg [facility] MCHC 31.8(L) 32.0 - 36.0 g/dL [facility] Comment: For adults, a slight decrease in the calculated MCHC value (in the range of 30 to 32 g/dL) is most likely not clinically significant; however, it should be interpreted with caution in correlation with other red cell parameters and the patient's clinical condition. RDW 14.4 11.0 - 15.0 % [facility] PLATELETS 302 140 - 400 Thousand/u L [facility] MPV 9.1 7.5 - 12.5 fL [facility] NEUTROPHIL ABSOLUTE 5,174 1,500 - 7,800 cells/uL [facility] LYMPHOCYTE ABSOLUTE 1,917 850 - 3,900 cells/uL [facility] MONOCYTE ABSOLUTE 477 200 - 950 cells/uL [facility] EOSINOPHIL ABSOLUTE 92 15 - 500 cells/uL [facility] BASOPHILS ABSOLUTE 39 0 - 200 cells/uL [facility] NEUTROPHIL 67.2 % [facility] LYMPHOCYTES 24.9 % [facility] MONOCYTE 6.2 % [facility] EOSINOPHILS 1.2 % [facility] BASOPHILS 0.5 % [facility] Comment: FASTING:UNKNOWN FASTING: UNKNOWN Test Performed at: [facility] [place] [address] Andrei Sheehan MD Blood 03/30/2025 1:42 PM CDT 03/30/2025 1:43 PM CDT Savannah German [facility] HEMATOLOGY ORDERABLES Tri l Result [facility] [phone] [facility] [address] [place] [phone] * URIC ACID (03/30/2025 1:42 PM CDT) Pathologist [facility] URIC ACID 4.8 2.5 - 7.0 mg/dL [facility] Comment: Therapeutic target for gout patients: <6.0 mg/dL Test Performed at: [email or web address] [place] [address] Andrei Sheehan MD Blood 03/30/2025 1:42 PM CDT 03/30/2025 1:43 PM CDT Savannah German [facility] CHEMISTRY ORDERABLES Final Result Performing Organization Address City/[facility]/ZIP Co de Phone Number [facility] [phone] [facility] [address] [place], [place] [address] [address] * (ABNORMAL) HEMOGLOBIN A1C (03/30/2025 1:42 PM CDT) HEMOGLOBIN A1C 6.9(H) <5.7 % [facility] Comment: For someone without known diabetes, a hemoglobin A1c value of 6.5% or greater indicates that they may have diabetes and this should be confirmed with a follow-up test. For someone with known diabetes, a value <7% indicates that their diabetes is well controlled and a value greater than or equal to 7% indicates suboptimal control. A1c targets should be individualized based on duration of diabetes, age, comorbid conditions, and other considerations. Currently, no consensus exists regarding use of hemoglobin A1c for diagnosis of diabetes for children. ESTIMATED AVERAGE GLUCOSE (MG/DL) 151 mg/dL [facility] ESTIMATED AVERAGE GLUCOSE (MMOL/L) 8.4 mmol/L [facility] Comment: FASTING:UNKNOWN FASTING: UNKNOWN Test Performed at: [facility] [address] [place] [address] Andrei Sheehan MD Blood 03/30/2025 1:42 PM CDT 03/30/2025 1:43 PM CDT Bjcyndibonnie German [employer] CHEMISTRY ORDERABLES Final Result [facility] [phone] [facility] [address] [place] [phone] * (ABNORMAL) COMPREHENSIVE METABOLIC PANEL (03/30/2025 1:42 PM CDT) GLUCOSE 109(H) 65 - 99 mg/dL [facility] Comment: Fasting reference interval For someone without known diabetes, a glucose value between 100 and 125 mg/dL is consistent with prediabetes and should be confirmed with a follow-up test. BUN 14 7 - 25 mg/dL [facility] CREATININE 0.80 0.50 - 1.03 mg/dL [facility] GFR 88 > OR = 60 mL/min/1. 73m2 [facility] BUN/CREAT RATIO SEE NOTE: 6 - 22 (calc) [facility] Comment: Not Reported: BUN and Creatinine are within reference range. SODIUM 137 135 - 146 mmol/L [facility] POTASSIUM 4.2 3.5 - 5.3 mmol/L [facility] CHLORIDE 104 98 - 110 mmol/L [facility] CO2 23 20 - 32 mmol/L [facility] CALCIUM 8.8 8.6 - 10.4 mg/dL [facility] TOTAL PROTEIN 7.4 6.1 - 8.1 g/dL [facility] ALBUMIN 4.1 3.6 - 5.1 g/dL [facility] GLOBULIN 3.3 1.9 - 3.7 g/dL (calc) [facility] ALBUMIN/GLOBULIN RATIO 1.2 1.0 - 2.5 (calc) [facility] BILIRUBIN TOTAL 0.4 0.2 - 1.2 mg/dL [facility] ALKALINE PHOSPHATASE 96 37 - 153 U/L [facility] AST 19 10 - 35 U/L [facility] ALT 15 6 - 29 U/L [facility] Comment: FASTING:UNKNOWN FASTING: UNKNOWN Test Performed at: [address] [address] Andrei Sheehan MD Blood 03/30/2025 1:42 PM CDT 03/30/2025 1:43 PM CDT us Savannah German [employer] CHEMISTRY ORDERABLES Final Result [facility] [phone] [facility] [phone] * [place] TYMPANOMETRY (03/15/2025 2:53 PM CDT) Narrative Michelle Valdovinos AU.D - 03/15/2025 2:53 PM CDT Michelle Valdovinos AU.D 03/15/2025 2:53 PM Tympanometric results: See Scanned Images Right Ear: Jerger Type As (1.2 ear canal volume; 0.11 compliance; -37 middle ear pressure) Left Ear: Jerger Type B (1.1 ear canal volume; -- compliance; -- middle ear pressure) us Michelle [facility] ORDERABLES Final Result * KS PURE TONE AUDIOMETRY AIR ONLY, KS SPEECH AUDIOMETRY THRESHOLD SPEECH RECOGNIJ (03/15/2025 2:53 PM CDT) Narrative Michelle Valdovinos AU.D - 03/15/2025 2:53 PM CDT Michelle Valdovinos AU.D 03/15/2025 2:53 PM SUBJECTIVE: Nayla Trujillo is a 54 y.o. female seen today for recheck of ears. Nayla states her otorrhea has resolved and she is hearing better. No ear pain reported. OBJECTIVE: Patient was referred by Dr. Merritt. ASSESSMENT: Speech Tablet Tester Threshold:(live voice) Right Ear: 25 dB HL Left Ear: 30 dB HL Word Recognition Testing: Right: 96 % presented at 65 dB HL (-- dB masking) Left: 100 % presented at 65 dB HL (-- dB masking) Pure Tone Testing: Right Ear: mild sensorineural hearing loss Left Ear: mild to moderate sensorineural hearing loss Previously mixed loss, all air bone gaps have now closed Tympanometric results: See Scanned Images Right Ear: Jerger Type As (1.2 ear canal volume; 0.11 compliance; -37 middle ear pressure) Left Ear: Jerger Type B (1.1 ear canal volume; -- compliance; -- middle ear pressure) Patient test reliability was good. (Lopez #4; Transducer: HEADPHONES; Word List:NU6) PLAN: It was recommended that the patient follow-up with the ENT provider as planned for further medical evaluation. Michelle [facility] ORDERABLES Final Result * MAMMO 3D IGOR SCREEN BILAT W OR WO CAD (02/08/2025 1:51 PM CDT) Anatomical Region Laterality Modality Breast Bilateral Mammography, Dig ital Radiography Impressions 02/12/2025 3:56 PM CDT : No mammographic evidence of malignancy. BI-RADS ASSESSMENT: 1 - Negative RECOMMENDATION: Routine annual screening mammography. Narrative 02/12/2025 3:56 PM CDT EXAM: MAMMO SCRN BILAT 3D IGOR W OR WO CAD INDICATION: Screening COMPARISON: 09/23/2023 MAMMO PRIOR STUDY and 08/24/2020 MAMMO PRIOR STUDY BREAST COMPOSITION: The breasts are almost entirely fatty. FINDINGS: RIGHT BREAST: There are no suspicious masses, calcifications, or areas of architectural distortion. LEFT BREAST: There are no suspicious masses, calcifications, or areas of architectural distortion. Savannah German VENEER REPAIRER MACHINE MAMMO ORDERABLES Final Res ult * HM DIABETES EYE EXAM (02/01/2025 10:07 AM CDT) Abstract Provider HEALTH MAINTENANCE Edited Resu lt - Final * MICROALBUMIN/CREATININE RATIO, RANDOM UR (07/13/2024 1:41 PM CDT) Creatinine, Urine 100 20 - 275 mg/dL [facility] MICROALBUMIN, URINE 1.7 See Note: mg/dL [facility] Comment: Reference Range: Reference Range Not established MICROALBUMIN/CREAT RATIO, UR 17 <30 mg/g creat [facility] Comment: The ADA defines abnormalities in albumin excretion as follows: Albuminuria Category Result (mg/g creatinine) Normal to Mildly increased <30 Moderately increased 30-299 Severely increased > OR = 300 The ADA recommends that at least two of three specimens collected within a 3-6 month period be abnormal before considering a patient to be within a diagnostic category. Test Performed at: [facility] [address] [facility] [place] [address] Andrei Sheehan MD Urine URINE SPECIMEN OBTAINED BY CLEAN CATCH PROCEDURE / Unknown 07/13/2024 1:41 PM CDT 07/14/2024 5:38 AM CDT Savannah German VENEER REPAIRER MACHINE URINE ORDERABLES Final Res ult [facility] [phone] [facility] [address] [facility] [place] [address] * (ABNORMAL) LIPID PANEL (07/13/2024 1:41 PM CDT) CHOLESTEROL 166 <200 mg/dL [facility] HDL 46(L) > OR = 50 mg/dL [facility] TRIGLYCERIDE 193(H) <150 mg/dL [facility] LDL CALCULATED 91 mg/dL (calc) [facility] Comment: Reference range: <100 Desirable range <100 mg/dL for primary prevention; <70 mg/dL for patients with CHD or diabetic patients with > or = 2 CHD risk factors. LDL-C is now calculated using the Jasmine calculation, which is a validated novel method providing better accuracy than the Friedewald equation in the estimation of LDL-C. Roderick RM et al. IRINA. 2013;310(19): 4424-7670 (http://education.Leapfrog Online/faq/SCV807) CHOL/HDL RATIO 3.6 <5.0 (calc) [facility] NON-HDL CHOLESTEROL 120 <130 mg/dL (calc) [facility] Comment: For patients with diabetes plus 1 major ASCVD risk factor, treating to a non-HDL-C goal of <100 mg/dL (LDL-C of <70 mg/dL) is considered a therapeutic option. Test Performed at: [facility] [address] [place] [address] Andrei Sheehan MD Blood 07/13/2024 1:41 PM CDT 07/14/2024 3:13 AM CDT Savannah German [facility] CHEMISTRY ORDERABLES Final Result [facility] [phone] [facility] [address] [place] [phone] * COLON CANCER SCREEN, STOOL DNA (09/11/2022 8:24 PM CDT) COLOGUARD RESULT Negative Negative [facility] Comment: NEGATIVE TEST RESULT. A negative Cologuard result indicates a low likelihood that a colorectal cancer (CRC) or advanced adenoma (adenomatous polyps with more advanced pre-malignant features) is present. The chance that a person with a negative Cologuard test has a colorectal cancer is less than 1 in 1500 (negative predictive value >99.9%) or has an advanced adenoma is less than 5.3% (negative predictive value 94.7%). These data are based on a prospective cross-sectional study of 10,000 individuals at average risk for colorectal cancer who were screened with both Cologuard and colonoscopy. (Lore Barnes al, N Engl J Med 2014;370(14):5243-7230) The normal value (reference range) for this assay is negative. COLOGUARD RE-SCREENING RECOMMENDATION: Periodic colorectal cancer screening is an important part of preventive healthcare for asymptomatic individuals at average risk for colorectal cancer. Following a negative Cologuard result, the [place] Cancer Society and U.S. Multi-Society Task Force screening guidelines recommend a Cologuard re-screening interval of 3 years. References: [place] Cancer Society Guideline for Colorectal Cancer Screening: https://www.cancer.org/cancer/ecfts-sblpyx-utzgsv/xpntdonbx-rdeemftox-qbwbydj/ac s-rec ommendations.html.; Nabil DK, Lauren CHAPPELL, Dylan JoyceK, Colorectal Cancer Screening: Recommendations for Physicians and Patients from the U.S. Multi-Society Task Force on Colorectal Cancer Screening , Am J Gastroenterology 2017; 112:8206-3262. TEST DESCRIPTION: Composite algorithmic analysis of stool DNA-biomarkers with hemoglobin immunoassay. Quantitative values of individual biomarkers are not reportable and are not associated with individual biomarker result reference ranges. Cologuard is intended for colorectal cancer screening of adults of either sex, 45 years or older, who are at average-risk for colorectal cancer (CRC). Cologuard has been approved for use by the U.S. FDA. The performance of Cologuard was established in a cross sectional study of average-risk adults aged 50-84. Cologuard performance in patients ages 45 to 49 years was estimated by sub-group analysis of near-age groups. Colonoscopies performed for a positive result may find as the most clinically significant lesion: colorectal cancer [4.0%], advanced adenoma (including sessile serrated polyps greater than or equal to 1cm diameter) [20%] or non- advanced adenoma [31%]; or no colorectal neoplasia [45%]. These estimates are derived from a prospective cross-sectional screening study of 10,000 individuals at average risk for colorectal cancer who were screened with both Cologuard and colonoscopy. (Lore Diaz, N Engl J Med 2014;370(14):3049-9944.) Cologuard may produce a false negative or false positive result (no colorectal cancer or precancerous polyp present at colonoscopy follow up). A negative Cologuard test result does not guarantee the absence of CRC or advanced adenoma (pre-cancer). The current Cologuard screening interval is every 3 years. ([place] Cancer Society and U.S. Multi-Society Task Force). Cologuard performance data in a 10,000 patient pivotal study using colonoscopy as the reference method can be accessed at the following location: www.AudienceScience/results. Additional description of the Cologuard test process, warnings and precautions can be found at www.NutraboltogFOODITYrd.com. Stool STOOL SPECIMEN / Unknown 09/11/2022 8:24 PM CDT 09/13/2022 12:22 AM CDT Savannah German VENEER REPAIRER MACHINE BODY FLUIDS AND STOOLS Fin al Result [facility] # [id number] [address] , [address] [place] [address] from Last 3 Months or Most Recently Relevant to Health Maintenance Insurance MEDICAID [place] [facility] DUAL COMPLETE HMO [facility] [id number] Advance Directives For more information, please contact: [phone] * Full Code (Latest Code Status on File) Date Activated Date Inactivated Comments 10/18/2024 2:58 PM 10/18/2024 6:25 PM * Full Code Date Activated Date Inactivated Comments 10/18/2024 8:10 AM 10/18/2024 2:58 PM Care Teams Gold Assayer Relationship Specialty Start Date End Date Kalli Lyons DO [address] [place] [phone] PCP - General Family Practice 03/29/22
--- OUTSIDE RECORDS SUMMARY | 2025-06-11 21:23 | XMS_ITS | Patient Health Record ---
Author Organization [facility] Address [address] [place] [address] Care Team Providers Care Ui Developer Name Role Phone Neil Felix Unavailable [phone] Reason For Referral No Information Problems Problem Type SNOMED Code ICD Code Onset Dates Problem Status W/U Status Risk Notes Problem Morbid obesity (059747821) Morbid obesity (278.01) Active confirmed [id number] 911- Problem Gastroesophageal reflux disease (809592553) Gastroesophageal reflux disease (530.81) Active confirmed [id number] 911- Problem Migraine with aura (2653098) Classic migraine (346.00) Active confirmed Kiel-[id number] 911- Problem Essential hypertension (20544886) Essential hypertension (401.1) Active confirmed [id number] 911- Problem Diabetes mellitus type 2 (disorder) (17593017) Type 2 diabetes (250.00) Active confirmed Kiel-985 911- Problem Obstructive sleep apnea syndrome (20090173) Obstructive sleep apnea (adult) (pediatric) (327.23) Problem resolved confirmed Kiel-985 911- Problem Infection of external ear (325307860) Other acute infections of external ear (380.13) Problem resolved confirmed Kiel-985 911- Problem Gross hematuria (906325881) Gross hematuria (599.71) Problem resolved confirmed Kiel-985 911- Problem Fever (765065439) Fever, unspeci fied (780.60) Problem resolved confirmed Kiel-985 911- Problem Memory loss (67297280) Memory loss (780.93) 017 Problem resolved confirmed Kiel-985 911- Problem Diarrhea (41804264) Diarrhea (787.91) 018 Problem resolved confirmed Kiel-985 911- Problem Proteinuria (02629642) Proteinuria (791.0) 018 Problem resolved confirmed Kiel-985 911- Problem Hypothyroidism (31134430) Hypothyroidism (244.9) 017 Problem resolved confirmed Kiel-985 911- Problem Osteoarthritis of knee (496853798) Osteoarthritis of knee (715.16) 017 Problem resolved confirmed Kiel-985 911- Problem Seasonal allergy (918134845) Seasonal allergies (477.0) Problem resolved confirmed Kiel-985 911- Problem Disease of the oral soft tissues (28811086) Ulcer of oral mucosa (528.9) Problem resolved confirmed Kiel-985 911- Problem Allergic rhinitis caused by pollen (10122499) Allergies (477.0) 018 Problem resolved confirmed Kiel-985 911- Problem Disorder of hematopoietic system (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) Other abnormal findings on blood examination (790.99) Problem resolved confirmed Kiel-985 911- Problem Chest pain (69918129) Chest pain (786.51) 018 Problem resolved confirmed Kiel-985 911- Problem Generalized abdominal pain (581422970) Generalized abdominal pain (789.07) 018 Problem resolved confirmed Kiel-985 911- Problem Influenza (6926231) Influenza, with other respiratory manifestation (487.1) 018 Problem resolved confirmed Kiel-985 911- Problem Microalbuminuria (124514284) Microalbuminuria (791.0) Problem resolved confirmed Kiel-985 911- Problem History and physical examination, sports participation (727660081) Sports physical (V70.3) 018 Problem resolved confirmed Kiel-985 911- Problem Thyroid nodule (642585094) Thyroid nodule (241.0) 017 Problem resolved confirmed Kiel-985 911- Problem Needs influenza immunization (236232574) Vaccination against other viral diseases, Influenza (V04.81) Problem resolved confirmed Kiel-985 911- Problem Abdominal pain (66985257) Abdominal pain, unspecified (789.00) Problem resolved confirmed Kiel-985 911- Problem Anxiety (39727885) Anxiety (300.02) 07/28 Problem resolved confirmed Kiel-985 911- Problem Constipation (23017792) Constipation (564.01) Problem resolved confirmed Kiel-985 911- Problem Acute upper respiratory infection (31750714) Acute viral syndrome (465.9) Problem resolved confirmed Kiel-985 911- Problem Dysphagia (84719639) Difficulty in swallowing NOS (787.20) Problem resolved confirmed Kiel-985 911- Problem Subjective tinnitus (53908321) Tinnitus, subjective (388.31) Problem resolved confirmed Kiel-985 911- Problem Toothache (58285995) Toothache (525.9) Problem resolved confirmed Kiel-985 911- Problem Acquired hypothyroidism (114381883) Acquired hypothyroidism, other specified cause (244.8) Problem resolved confirmed Kiel-985 911- Problem Nausea and vomiting (88277744) Nausea and vomiting (787.01) Problem resolved confirmed Kiel-985 911- Problem Nausea (673356267) Nausea (787.02) Problem resolved confirmed Kiel-985 911- Problem Incomplete emptying of bladder (204769083) weak urine stream (788.21) Problem resolved confirmed Kiel-985 911- Plan Of Treatment No Information
--- OUTSIDE RECORDS SUMMARY | 2025-06-11 21:23 | XMS_ITS | Encounter Summary ---
Author Organization [facility] Address [address] [place] [address] Care Team Providers Care Fiber Machine Tender Name Role Phone Kalli Lyons DO Primary Care Provider [phone]- [phone] Encounter Details Date Type Department Care Team (Latest Contact Info) Description 02/02/2002 Outpatient Historical [facility] Ramirez Gaitan MD [address] [place] [phone] ABDOMINAL PAIN UNSPEC SITE (Primary Dx); ABNORMAL URINE FINDINGS NEC Social History Tobacco Use Types Packs/Day Years Used Date Smoking Tobacco: Never Assessed Comments Unknown Sex and Gender Information Value Date Recorded Sex Assigned at Not on file 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
--- OUTSIDE RECORDS SUMMARY | 2025-06-11 21:23 | XMS_ITS | Encounter Summary ---
Author Organization [facility] Address [address] [place] [address] Care Team Providers Care Regional Sales Associate Name Role Phone Kalli Lyons Primary Care Provider Encounter Details Date Type Department Care Team (Latest Contact Info) Description 03/28/2005 Outpatient Historical [facility] Operating Room [address] [place] [address] Yikna Moran, DDS [address] [place] [phone] UNSPEC DENTAL CARIES (Primary Dx) Social History Tobacco Use Types Packs/Day Years Used Date Smoking Tobacco: Never Assessed Comments Unknown Sex and Gender Information Value Date Recorded Sex Assigned at Not on file Legal Sex Female 3:36 AM SEED PACKER Gender Identity Not on file Sexual Orientation Not on file documented as of this encounter Plan of Treatment Not on file documented as of this encounter Procedures Procedure Name Priority Date/Time Associated Diagnosis Comments POC GLUCOSE Routine 03/28/2005 3:05 PM CDT POC GLUCOSE Routine 03/28/2005 12:11 PM CDT documented in this encounter Results * (ABNORMAL) POC GLUCOSE (03/28/2005 3:05 PM CDT) GLUCOSE POC 111(H) 60 - 100 mg/dL INTERFACE SYSTEM 03/28/2005 3:05 PM CDT us Yinka Moran DDS POINT OF CARE TESTING Final R esult Performing Organization Address City/State/[facility] Co de Phone Number INTERFACE SYSTEM Refer to clinic/hospital department * POC GLUCOSE (03/28/2005 12:11 PM CDT) GLUCOSE POC 92 60 - 100 mg/dL INTERFACE SYSTEM 03/28/2005 12:1 1 PM CDT us Yinka Moran DDS POINT OF CARE TESTING Final R esult Performing Organization Address City/[facility] Co de Phone Number INTERFACE SYSTEM Refer to clinic/hospital department documented in this encounter Visit Diagnoses Diagnosis Unspecified dental caries- Primary documented in this encounter Care Teams Regional Sales Associate Relationship Specialty Start Date End Date Kalli Lyons DO [address] [place] [address] PCP - General Family Practice 09/17/20 documented as of this encounter
--- OUTSIDE RECORDS SUMMARY | 2025-06-11 21:23 | XMS_ITS | Encounter Summary ---
Author Organization [facility] Address [address] [place] [address] Care Team Providers Care Soda Jerker Name Role Phone Kalli Lyons DO Primary Care Provider [phone]- [phone] Encounter Details Date Type Department Care Team (Latest Contact Info) Description 03/16/2002 Outpatient Historical [facility] Ramirez Gaitan MD [address] [place] [phone] UTERINE LEIOMYOMA NOS (Primary Dx) Social History Tobacco Use Types Packs/Day Years Used Date Smoking Tobacco: Never Assessed Comments Unknown Sex and Gender Information Value Date Recorded Sex Assigned at Not on file 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
--- OUTSIDE RECORDS SUMMARY | 2025-06-11 21:23 | XMS_ITS | Encounter Summary ---
Author Organization [facility] Address [address] [place]: [place] [address] Care Team Providers Care Clerical Associate Name Role Phone Kalli Lyons DO Primary Care Provider [phone] Encounter Details Date Type Department Care Team (Late st Contact Info) Description 02/02/2002 Outpatient Historical [facility] Gaitan MD [address] [place] [phone] Social History Tobacco Use Types Packs/Day Years Used Date Smoking Tobacco: Never Assessed Comments Unknown Sex and Gender Information Value Date Recorded Sex Assigned at Not on file Legal Sex Female 3:36 AM TELEPHONE MAINTAINER Gender Identity Not on file Sexual Orientation Not on file documented as of this encounter Plan of Treatment Not on file documented as of this encounter Visit Diagnoses Not on filedocumented in this encounter Care Teams Clerical Associate Relationship Specialty Start Date End Date Kalli Lyons DO [address] [place] [address] PCP - General Family Practice 09/17/20 documented as of this encounter
--- OUTSIDE RECORDS SUMMARY | 2025-06-11 21:23 | XMS_ITS | Encounter Summary ---
Author Organization [facility] Address [address] [place] [address] Care Team Providers Care Hob Machine Operator Name Role Phone Kalli Lyons DO Primary Care Provider [phone] Encounter Details Date Type Department Care Team (Latest Contact Info) Description 03/04/2001 Outpatient Historical [facility] 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
--- OUTSIDE RECORDS SUMMARY | 2025-06-11 21:23 | XMS_ITS | Encounter Summary ---
Author Organization [facility] Address [address] [place] [address] Care Team Providers Care Smoking Pipe Coater Name Role Phone Kalli Lyons DO Primary Care Provider [phone]- [phone] Encounter Details Date Type Department Care Team (Latest Contact Info) Description 10/15/2002 Outpatient Historical [facility] Ramirez Gaitan MD [address] [place] [phone] IMPETIGO (Primary Dx) Social History Tobacco Use Types Packs/Day Years Used Date Smoking Tobacco: Never Assessed Comments Unknown Sex and Gender Information Value Date Recorded Sex Assigned at Not on file Legal Sex Female 3:36 AM CIGAR BANDER HAND Gender Identity Not on file Sexual Orientation Not on file documented as of this encounter Plan of Treatment Not on file documented as of this encounter Visit Diagnoses Diagnosis Impetigo- Primary documented in this encounter Care Teams Smoking Pipe Coater Relationship Specialty Start Date End Date Kalli Lyons DO [address] [place] [address] PCP - General Family Practice 09/17/20 documented as of this encounter
--- OUTSIDE RECORDS SUMMARY | 2025-06-11 21:23 | XMS_ITS | Encounter Summary ---
Author Organization [facility] Address [address] [place] [address] Care Team Providers Care Sewage Disposal Worker Name Role Phone Kalli Lyons DO Primary Care Provider [phone]- [phone] Encounter Details Date Type Department Care Team (Latest Contact Info) Description 09/07/2002 Outpatient Historical [facility] Ramirez Gaitan MD [address] [place] [phone] ACUTE SINUSITIS NOS (Primary Dx) Social History Tobacco Use Types Packs/Day Years Used Date Smoking Tobacco: Never Assessed Comments Unknown Sex and Gender Information Value Date Recorded Sex Assigned at Not on file Legal Sex Female 3:36 AM PLEXIGLAS FORMER Gender Identity Not on file Sexual Orientation Not on file documented as of this encounter Plan of Treatment Not on file documented as of this encounter Visit Diagnoses Diagnosis Acute sinusitis, unspecified- Primary documented in this encounter Care Teams Sewage Disposal Worker Relationship Specialty Start Date End Date Kalli Lyons DO [address] [place] [phone] PCP - General Family Practice 09/17/20 documented as of this encounter
--- OUTSIDE RECORDS SUMMARY | 2025-06-11 21:23 | XMS_ITS | Encounter Summary ---
Author Organization [facility] Address [address] [place] [address] Care Team Providers Care Crm Marketing Manager Name Role Phone Kalli Lyons DO Primary Care Provider [phone]- [phone] Encounter Details Date Type Department Care Team (Latest Contact Info) Description 12/21/2002 Outpatient Historical [facility] Ramirez Gaitan MD [address] [place] [phone] POSTMENOPAUSAL HORMONAL REPLACMT (Primary Dx) Social History Tobacco Use Types Packs/Day Years Used Date Smoking Tobacco: Never Assessed Comments Unknown Sex and Gender Information Value Date Recorded Sex Assigned at Not on file 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
--- OUTSIDE RECORDS SUMMARY | 2025-06-11 21:23 | XMS_ITS | Encounter Summary ---
Author Organization [facility] Address [address] [place] [address] Care Team Providers Care Neon Sign Installer Name Role Phone Kalli Lyons DO Primary Care Provider [phone]- [phone] Encounter Details Date Type Department Care Team (Latest Contact Info) Description 02/22/2002 Outpatient Historical [facility] Ramirez Gaitan MD [address] [place] [id number] POLYCYSTIC OVARIES (Primary Dx); ABNORMAL WEIGHT GAIN Social History Tobacco Use Types Packs/Day Years Used Date Smoking Tobacco: Never Assessed Comments Unknown Sex and Gender Information Value Date Recorded Sex Assigned at Not on file Legal Sex Female 3:36 AM RECYCLING OPERATOR Gender Identity Not on file Sexual Orientation Not on file documented as of this encounter Plan of Treatment Not on file documented as of this encounter Visit Diagnoses Diagnosis Polycystic ovaries- Primary Abnormal weight gain documented in this encounter Care Teams Neon Sign Installer Relationship Specialty Start Date End Date Kalli Lyons DO [address] [place] [id number] PCP - General Family Practice 09/17/20 documented as of this encounter
--- OUTSIDE RECORDS SUMMARY | 2025-06-11 21:23 | XMS_ITS | Encounter Summary ---
Author Organization [facility] Address [address] [place] [address] Care Team Providers Care Weft Straightener Name Role Phone Kalli Lyons DO Primary Care Provider [phone]- [phone] Encounter Details Date Type Department Care Team (Latest Contact Info) Description 02/12/2002 Outpatient Historical [facility] Ramirez Gaitan MD [address] [place] [phone] ABDOMINAL PAIN UNSPEC SITE (Primary Dx) Social History Tobacco Use Types Packs/Day Years Used Date Smoking Tobacco: Never Assessed Comments Unknown Sex and Gender Information Value Date Recorded Sex Assigned at Not on file 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
--- OUTSIDE RECORDS SUMMARY | 2025-06-11 21:23 | XMS_ITS | Encounter Summary ---
Author Organization [facility] Address [address] [place] [address] Care Team Providers Care Radial Saw Operator Name Role Phone Kalli Lyons DO Primary Care Provider Encounter Details Date Type Department Care Team (Latest Contact Info) Description 01/23/2005 Outpatient Historical [facility] Oral and Maxillo Surgery- [address] [address] Yinka Moran, DDS [address] [phone] Tooth eruption disturb (Primary Dx) Social History Tobacco Use Types Packs/Day Years Used Date Smoking Tobacco: Never Assessed Comments Unknown Sex and Gender Information Value Date Recorded Sex Assigned at Not on file Legal Sex Female 3:36 AM AUTOMATIC WASHER MECHANIC Gender Identity Not on file Sexual Orientation Not on file documented as of this encounter Plan of Treatment Not on file documented as of this encounter Visit Diagnoses Diagnosis Tooth eruption disturb- Primary Disturbances in tooth eruption documented in this encounter Care Teams Radial Saw Operator Relationship Specialty Start Date End Date Kalli Lyons DO [address] [place] [phone] PCP - General Family Practice 09/17/20 documented as of this encounter
--- OUTSIDE RECORDS SUMMARY | 2025-06-11 21:23 | XMS_ITS | Encounter Summary ---
Author Organization [facility] Address [address] [place] [address] Care Team Providers Care Director Prospect Name Role Phone Kalli Lyons DO Primary Care Provider [phone]- [phone] Encounter Details Date Type Department Care Team (Latest Contact Info) Description 03/28/2005 Outpatient [facility] Oral and Maxillo Surgery- [address] [address] Yinka Moran, DDS [address], [place] [phone] UNSPEC DENTAL CARIES (Primary Dx); Tooth eruption disturb Social History Tobacco Use Types Packs/Day Years Used Date Smoking Tobacco: Never Assessed Comments Unknown Sex and Gender Information Value Date Recorded Sex Assigned at Not on file 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
[2025-06-11 21:29] VITALS: BP 133/86; PULSE 92; RESP 18; TEMP 36.7; O2SAT 97; BMI 49.0
--- NOTE | 2025-06-11 23:52 | W.ED.EPISTAX ---
HPI - Epistaxis General: Chief complaint: Epistaxis Stated complaint: Nose bleed Time Seen by Provider: 06/11/25 22:12 History of Present Illness: HPI: Patient states has been picking her nose and placing Q-tips in her nose to look for sores . States that when she picks her nose her nose bleeds. Is wondering if her nose is dry and is requesting medication to reduce the bleeding. REVIEW OF SYSTEMS: 10 systems reviewed and otherwise unremarkable except for those noted in HPI. PHYSCIAL EXAM: Triage vital signs reviewed Gen: A&O NAD HEENT: NCAT, EOMI, not icteric. External ears normal. No rhinorrhea. Moist mucous membranes. Neck: Supple, full range of motion, no observable masses, No meningeal sign. Lungs: No Respiratory distress. CV: RRR, no edema. Abdomen: Soft, nondistended, No rebound tenderness. MSK: No joint swelling, no redness. Skin: No rashes, petechiae, lesions. Normal color per patient. Neuro: Normal Gait, Grossly intact. Psych: Appropriate for situation. PROCEDURES: N/A Related Data Home Medications ?Medication ?Instructions ?Recorded ?Confirmed docusate sodium 100 mg capsule 100 mg PO BID PRN Constipation 11/16/19 03/01/25 liothyronine 5 mcg tablet 5 mcg PO DAILY 05/03/20 03/01/25 acetaminophen 500 mg tablet 1,000 mg PO Q6H PRN Pain 10/24/20 03/01/25 (Tylenol Extra Strength) levothyroxine 112 mcg tablet 112 mcg PO DAILY 12/12/23 03/01/25 oxybutynin chloride 10 mg 10 mg PO DAILY 12/12/23 03/01/25 tablet,extended release 24 hr tramadol 50 mg tablet mg PO 03/25/24 03/01/25 semaglutide 0.25 mg or 0.5 mg (2 1 mg SUBCUT .weekly 11/25/24 03/01/25 mg/3 mL) subcutaneous pen injector (Ozempic) Previous Rx's ?Medication ?Instructions ?Recorded levocetirizine 5 mg tablet (Xyzal) 5 mg PO DAILY PRN allergy symptoms 09/21/23 #60 tabs fluconazole 150 mg tablet 150 mg PO Q3D 2 doses #2 tabs 04/05/24 oarljofi-epipbgboy-qgedgfcr 3.5 4 drp ophthalmic (eye) Q12H 5 days 04/13/24 mg/mL-10,000 unit/mL-0.1% eye #5 mL drops (Maxitrol) sumatriptan succinate 100 mg tablet See Rx Instructions .Route 06/16/24 .COMPLEX #9 tabs lidocaine 5 % topical ointment 1 applic topical BID PRN pain #30 06/30/24 grams methocarbamol 750 mg tablet 750 mg PO Q8H PRN neck pain #30 08/21/24 tabs mupirocin 2 % topical ointment 1 applic topical BID #15 grams 01/28/25 fluoxetine 20 mg capsule (Prozac) 20 mg PO DAILY #30 caps 02/21/25 cefdinir 300 mg capsule 300 mg PO BID 10 days #20 caps 03/01/25 ondansetron 8 mg disintegrating 8 mg PO Q8H PRN nausea and 03/01/25 tablet vomiting 5 days #15 tabs magnesium citrate (OneLAX 296 ml PO DAILY PRN constipation 03/13/25 Magnesium Citrate oral solution) #296 mL metoclopramide HCl 10 mg tablet 10 mg PO Q6H PRN nausea and 03/13/25 (Reglan) vomiting #20 tabs buspirone 15 mg tablet 15 mg PO BID #60 tabs 05/25/25 Allergies Allergy/AdvReac Type Severity Reaction Status Date / Time lisinopril Allergy Severe Unknown Verified 03/01/25 16:10 Pertussis Vaccines Allergy Severe ALGY-Rash Verified 03/01/25 16:10 Sulfa (Sulfonamide Allergy Severe ALGY-Rash Verified 03/01/25 16:10 Antibiotics) sulfamethoxazole (From Allergy Severe Unknown Verified 03/01/25 16:10 Septra) trimethoprim (From Septra) Allergy Severe Unknown Verified 03/01/25 16:10 adhesive Allergy ALGY-Rash Verified 03/01/25 16:10 ibuprofen Allergy ALGY-Anaphy Verified 03/01/25 16:10 laxis PENDING SALE TO [facility] ED PFS: Medical History (Updated 06/11/25 @ 23:56 by Boubacar Mason MD) Major depressive disorder, recurrent, moderate Recurrent UTI Urinary tract infection with hematuria Grief reaction Nausea & vomiting Dumping syndrome Dizziness Nausea & vomiting Psychiatric care Tinnitus Borderline intellectual functioning Generalized anxiety disorder Acute serous otitis media of left ear Controlled type 2 diabetes mellitus, without long-term current use of insulin Enrolled in chronic care management Seizure disorder Depression Hypertension Dyslipidemia Obesity Anxiety BHARAT (obstructive sleep apnea) Hypothyroidism GERD (gastroesophageal reflux disease) Surgical History History of placement of ear tubes History of gastric bypass History of colonoscopy with polypectomy (~09/2018) History of laparoscopic cholecystectomy History of esophagogastroduodenoscopy (EGD) (~09/2018) History of hysterectomy with oophorectomy Family History Grandmother Cancer Father , at age 62 Lung disease Diabetes COPD (chronic obstructive pulmonary disease) Mother Rheumatic arteritis Depression Denies family history of Anesthesia complication Bleeding disorder Social History Smoking and tobacco/nicotine status: never used tobacco/nicotine Second hand smoke exposure: No Alcohol intake: never Substance/Drug Use: never Adopted: No Caregiver/support person: Yes (nurse comes in and sets up her medications) Lives independently: Yes Household members: none Housing: Apartment Marital status: Single Number of children: 0 Highest education level completed: High School Graduate service: No Current occupational status: disabled Current occupational exposures/hazards: No Pets and animals: Yes Pets & animals: cat(s) Leisure activites: art Sexually active: No Do you think of yourself as: Straight/Heterosexual Current gender identity: Female Ania/Anabaptist: None Special ania needs: No Agree to transfusion: Yes Course Vital Signs: Vital signs: Vital Signs Temperature 98.1 F 06/11/25 21:29 Pulse Rate 92 06/11/25 21:29 Respiratory Rate 18 06/11/25 21:29 Blood Pressure 133/86 06/11/25 21:29 Pulse Oximetry 97 06/11/25 21:29 Oxygen Delivery Me thod Room Air 06/11/25 21:29 MDM - Epistaxis Medical Decision Making MEDICAL DECISION MAKING: Differential diagnoses considered but not limited to: Anterior bleed, posterior bleed, digital trauma, bleeding dyscrasia, others. Vitals nonactionable. Given history, examination, and pretest risk factors, feel most likely due to digital trauma. Patient received Afrin in the department and pressure with cessation of bleeding. Advised not to pick her nose anymore. DISPO: KRUNAL Mason MD [place] [facility] [place] [phone] No radiology studies performed this visit Discharge Plan Discharge Patient Disposition: Home Clinical Impression: Epistaxis Condition: Stable Prescriptions: No Action docusate sodium 100 mg capsule 100 mg PO BID PRN (Reason: Constipation) lidocaine 5 % ointment 1 applic topical BID PRN (Reason: pain) Qty: 30 0RF Ozempic 0.25 mg or 0.5 mg (2 mg/3 mL) pen injector 1 mg SUBCUT .weekly methocarbamol 750 mg tablet 750 mg PO Q8H PRN (Reason: neck pain) Qty: 30 0RF levocetirizine [Xyzal] 5 mg tablet 5 mg PO DAILY PRN (Reason: allergy symptoms) Qty: 60 0RF tramadol 50 mg tablet PO fluconazole 150 mg tablet 150 mg PO Q3D Qty: 2 0RF neomycin-polymyxin B-dexameth [Maxitrol] 3.5mg/mL-10,000 unit/mL-0.1 % drops,suspension 4 drp ophthalmic (eye) Q12H 5 Days Qty: 5 0RF Rx Instructions: use in left ear fluoxetine [Prozac] 20 mg capsule 20 mg PO DAILY Qty: 30 1RF ondansetron 8 mg tablet,disintegrating 8 mg PO Q8H PRN (Reason: nausea and vomiting) 5 Days Qty: 15 0RF cefdinir 300 mg capsule 300 mg PO BID 10 Days Qty: 20 0RF sumatriptan succinate 100 mg tablet See Rx Instructions .ROUTE .COMPLEX Qty: 9 0RF Dose Instruction: TAKE 1 TABLET BY MOUTH AT THE ONSET OF HEADACHE. IF NO RELIEF MAY REPEAT 1 TAB AFTER AT LEAST 2 HOURS. MAX OF 2 TABS IN 24 HOURS Rx Instructions: TAKE 1 TABLET BY MOUTH AT THE ONSET OF HEADACHE. IF NO RELIEF MAY REPEAT 1 TAB AFTER AT LEAST 2 HOURS. MAX OF 2 TABS IN 24 HOURS buspirone 15 mg tablet 15 mg PO BID Qty: 60 1RF liothyronine 5 mcg tablet 5 mcg PO DAILY acetaminophen [Tylenol Extra Strength] 500 mg Tablet 1,000 mg PO Q6H PRN (Reason: Pain) mupirocin 2 % ointment 1 applic topical BID Qty: 15 0RF oxybutynin chloride 10 mg tablet extended release 24hr 10 mg PO DAILY levothyroxine 112 mcg tablet 112 mcg PO DAILY magnesium citrate [OneLAX Magnesium Citrate] Solution 296 ml PO DAILY PRN (Reason: constipation) Qty: 296 0RF metoclopramide HCl [Reglan] 10 mg tablet 10 mg PO Q6H PRN (Reason: nausea and vomiting) Qty: 20 0RF Discharge Orders: Discharge ED (Routine); Ordered 06/11/25 Ordered By: Boubacar Mason Referrals: Savannah German FNP [Primary Care Provider] Discharge Diet: Advance as tolerated Discharge Activity: Resume usual activity Patient Instructions: Opioid Safety, Pain Management, Patient Portal & Manuel Instructions Activity Restrictions/Additional Instructions: It has been a pleasure caring for you in the emergency department. Please ensure that you follow-up with your primary care physician for review of all data obtained during this encounter including any incidental findings and laboratory values. Keep in mind that if your condition worsens in any way, I strongly recommend that you return to the emergency department for repeat evaluation immediately. Print Language: Georgian Coding Level of Care Code ED Biological Sciences Professor for Robyn Ruiz
== END 2025-06-12 00:28 | disposition home or self-care (01) ==
PROVIDERS: Emergency Provider General Practice; PCP Nurse Practitioner Family
DX: R04.0 Epistaxis (principal); E11.9 Type 2 diabetes mellitus without complications; E78.5 Hyperlipidemia, unspecified; I10 Essential (primary) hypertension
CPT/HCPCS: 99283; J9999

== ENCOUNTER → 2025-08-09 10:38 | Outpatient (BNVA) | payer MEDICARE, MEDICAID, SELFPAY ==
[2024-07-05 09:16] VITALS: BP 138/89; BMI 47.0
== END ==
PROVIDERS: PCP Nurse Practitioner Family; Visit Provider Nurse Practitioner Family
DX: L57.8 Other skin changes due to chronic exposure to nonionizing radiation (principal); L81.4 Other melanin hyperpigmentation; L82.1 Other seborrheic keratosis; D18.01 Hemangioma of skin and subcutaneous tissue
CPT/HCPCS: 99213

== ENCOUNTER 2025-09-21 14:21 | Outpatient (CLI) | payer MEDICARE, MEDICAID, SELFPAY ==
[2024-07-05 09:16] VITALS: BP 138/89; BMI 47.0
--- NOTE | 2025-09-21 14:33 | XR_ITS ---
WS: [id number] Exam: XR foot LT min 3V* [id number] Date/Time of Exam: 09/21/2025 2:43 PM Reason For Exam: left foot injury Comparison 06/14/2018. No acute fracture. Soft tissues are unremarkable. Prominent heel spurs. Minimal degenerative changes in the midfoot joints. XR/XR foot LT min 3V* [id number] IMPRESSION: 1. No fracture. Mild DJD.
== END 2025-09-21 14:22 | disposition home or self-care (01) ==
LOC: RAD 14:24
PROVIDERS: PCP Nurse Practitioner Family; Visit Provider Nurse Practitioner
DX: S99.922A Unspecified injury of left foot, initial encounter (principal); X58.XXXA Exposure to other specified factors, initial encounter; M19.072 Primary osteoarthritis, left ankle and foot
CPT/HCPCS: 73630